=== PATIENT | female | born 1960 | race Caucasian/White ===

== ENCOUNTER → 2024-08-21 | Outpatient (CLI) | payer MEDICARE, SELFPAY ==
[2024-08-21 12:06] LABS: Basophils # (Auto) 0.1 Thou/mm3 (0.0-0.2); Basophils % (Auto) 1 % (0-2.5); Eosinophils # (Auto) 0.2 Thou/mm3 (0.0-0.5); Eosinophils % (Auto) 5 % (0-10); Hematocrit 40.8 % (36.0-46.0); Hemoglobin 13.1 g/dL (12.0-16.0); Immature Granulocytes % (Auto) 0 % (0-0); Immature Granulocytes Auto 0.01 Thou/mm3 (0.00-0.00); Lymphocytes # (Auto) 0.9 Thou/mm3 (1.0-4.8); Lymphocytes % (Auto) 25 % (10-50); Mean Corpuscular HGB Conc 32.1 g/dl (31.0-37.0); Mean Corpuscular Hemoglobin 27.5 pg (25.0-35.0); Mean Corpuscular Volume 86 fL (80-100); Monocytes # (Auto) 0.2 Thou/mm3 (0.0-0.8); Monocytes % (Auto) 6 % (0-12); Neutrophils # (Auto) 2.3 Thou/mm3 (1.8-7.7); Neutrophils % (Auto) 63 % (37-80); Nucleated Red Blood Cell % 0 /100 WBC (0); Platelet Count 86 Thou/mm3 (140-440); RDW Standard Deviation 46.6 fL (36.4-46.3); Red Blood Count 4.77 Miln/mm3 (4.00-5.20); White Blood Count 3.6 Thou/mm3 (3.6-11.0)
[2024-08-21 12:15] LABS: Glucose Estimated Average 174 mg/dL (80-131); Hemoglobin A1C 7.7 % Hgb (4.8-6.0)
[2024-08-21 12:27] LABS: Total Iron Binding Capacity 424 mcg/dL (250-425)
[2024-08-21 12:29] LABS: Alanine Aminotransferase 18 U/L (10-49); Albumin, Serum 4.2 gm/dL (3.4-4.8); Albumin/Globulin Ratio 1.4 (1.2-2.2); Alkaline Phosphatase 182 U/L (46-116); Anion Gap 6 (7-16); Aspartate Amino Transferase 28 U/L (0-34); BUN/Creatinine Ratio 18 Ratio (12-20); Bilirubin,Total 0.6 mg/dL (0.3-1.2); Blood Urea Nitrogen 14 mg/dL (9-23); Calcium 9.6 mg/dL (8.3-10.6); Calcium (Corrected) 9.6 mg/dL (8.5-10.1); Carbon Dioxide 28.9 mMol/L (20.0-31.0); Chloride 107 mMol/L (98-107); Creatinine (Component) 0.8 mg/dL (0.6-1.3); Free T4 (Free Thyroxine) 1.01 ng/dL (0.89-1.76); Globulin 3.1 gm/dL (2.3-3.5); Glucose 159 mg/dL (74-106); Osmolality,Calculated 286 (275-295); Potassium 3.6 mMol/L (3.4-5.1); Sodium 142 mMol/L (136-145); Total Protein 7.3 gm/dL (5.7-8.2); eGFR > 60 See Note
[2024-08-21 12:30] LABS: Vitamin B12 1120 pg/mL (211-911)
[2024-08-21 12:37] LABS: Ferritin 11 ng/mL (7.3-270.7); Iron 31 mcg/dL (50-170)
[2024-08-21 13:46] LABS: Creatinine MALB Rnd Ur 95 mg/dL (30-125); Microalbumin Creat Ratio 40 mg/gCrea (<30); Microalbumin, Random Urine 38 mg/L (0-300)
[2024-08-28 06:45] LABS: Gamma Glutamyl Transpeptidase* 309 U/L (3-65); T3,Total* 96 ng/dL (76-181)
[2024-09-01 06:52] LABS: Vitamin B1 (Thiamine)* 7 nmol/L (8-30)
== END | disposition home or self-care (01) ==
PROVIDERS: PCP Nurse Practitioner; Referring Provider Nurse Practitioner; Visit Provider Nurse Practitioner
DX: E11.65 Type 2 diabetes mellitus with hyperglycemia (principal); I10 Essential (primary) hypertension; E03.9 Hypothyroidism, unspecified; F10.20 Alcohol dependence, uncomplicated; K70.30 Alcoholic cirrhosis of liver without ascites; K76.89 Other specified diseases of liver
CPT/HCPCS: 36415; 80053; 82043; 82105; 82570; 82607; 82728; 82746; 82977; 83036; 83540; 83550; 84425; 84439; 84443; 84480; 85025

== ENCOUNTER → 2024-09-30 | Outpatient (CLI) | payer MEDICARE, SELFPAY ==
[2024-09-30 15:53] LABS: Collection Type, Urine Clean Catch
[2024-09-30 16:31] LABS: Basophils # (Auto) 0.1 Thou/mm3 (0.0-0.2); Basophils % (Auto) 1 % (0-2.5); Eosinophils # (Auto) 0.2 Thou/mm3 (0.0-0.5); Eosinophils % (Auto) 3 % (0-10); Hemoglobin 11.4 g/dL (12.0-16.0); Immature Granulocytes % (Auto) 0 % (0-0); Immature Granulocytes Auto 0.01 Thou/mm3 (0.00-0.00); Lymphocytes # (Auto) 1.1 Thou/mm3 (1.0-4.8); Lymphocytes % (Auto) 23 % (10-50); Mean Corpuscular HGB Conc 31.7 g/dl (31.0-37.0); Mean Corpuscular Volume 82 fL (80-100); Monocytes # (Auto) 0.3 Thou/mm3 (0.0-0.8); Monocytes % (Auto) 7 % (0-12); Neutrophils % (Auto) 65 % (37-80); Nucleated Red Blood Cell % 0 /100 WBC (0); Platelet Count 92 Thou/mm3 (140-440); RDW Standard Deviation 44.9 fL (36.4-46.3); Red Blood Count 4.38 Miln/mm3 (4.00-5.20); White Blood Count 4.6 Thou/mm3 (3.6-11.0)
[2024-09-30 16:41] LABS: Alanine Aminotransferase 18 U/L (10-49); Albumin, Serum 3.9 gm/dL (3.4-4.8); Albumin/Globulin Ratio 1.3 (1.2-2.2); Alkaline Phosphatase 156 U/L (46-116); Amylase 125 U/L (30-118); Anion Gap 6 (7-16); Aspartate Amino Transferase 23 U/L (0-34); BUN/Creatinine Ratio 21 Ratio (12-20); Bilirubin,Total 0.6 mg/dL (0.3-1.2); Blood Urea Nitrogen 17 mg/dL (9-23); Calcium 9.4 mg/dL (8.3-10.6); Calcium (Corrected) 9.5 mg/dL (8.5-10.1); Carbon Dioxide 27.6 mMol/L (20.0-31.0); Chloride 108 mMol/L (98-107); Creatinine (Component) 0.8 mg/dL (0.6-1.3); Globulin 3.1 gm/dL (2.3-3.5); Glucose 125 mg/dL (74-106); Lipase 173 U/L (12-53); Osmolality,Calculated 285 (275-295); Potassium 3.5 mMol/L (3.4-5.1); Sodium 142 mMol/L (136-145); eGFR > 60 See Note
[2024-09-30 16:42] LABS: Bilirubin,Urine Negative (Negative); Blood,Urine Negative (Negative); Clarity,Urine Clear (Clear/Hazy); Color,Urine Lt-Yellow (Lt Yel-Yel); Glucose, Urine 4+ (Negative); Ketones,Urine Negative (Negative); Leukocyte Esterase,Urine Negative (Negative); Nitrite,Urine Negative (Negative); Protein,Urine Negative (Neg - Trace); RBC,Urine 1 /hpf (0-3); Specific Gravity,Urine 1.032 (1.001-1.035); Squamous Epithelial Cell,Urine 1 /hpf (0-5); Urobilinogen,Urine Negative mg/dL (0.0-1.0); WBC,Urine < 1 /hpf (0-5)
== END | disposition home or self-care (01) ==
LOC: COPL 15:04
PROVIDERS: PCP Nurse Practitioner; Referring Provider Nurse Practitioner; Visit Provider Nurse Practitioner
DX: K86.1 Other chronic pancreatitis (principal); R10.30 Lower abdominal pain, unspecified
CPT/HCPCS: 36415; 80053; 81001; 82150; 83690; 85025; 87086

== ENCOUNTER → 2024-11-06 | Outpatient (CLI) | payer MEDICARE, SELFPAY ==
[2024-11-06 14:26] LABS: Anion Gap 4 (7-16); BUN/Creatinine Ratio 17 Ratio (12-20); Blood Urea Nitrogen 15 mg/dL (9-23); Calcium 9.2 mg/dL (8.3-10.6); Carbon Dioxide 28.9 mMol/L (20.0-31.0); Chloride 111 mMol/L (98-107); Creatinine (Component) 0.9 mg/dL (0.6-1.3); Glucose 156 mg/dL (74-106); Osmolality,Calculated 290 (275-295); Potassium 3.8 mMol/L (3.4-5.1); Sodium 144 mMol/L (136-145); eGFR > 60 See Note
== END | disposition home or self-care (01) ==
LOC: COPL 12:48
PROVIDERS: PCP Nurse Practitioner; Referring Provider Nurse Practitioner; Visit Provider Nurse Practitioner
DX: I10 Essential (primary) hypertension (principal)
CPT/HCPCS: 36415; 80048

== ENCOUNTER → 2024-11-09 | Outpatient (CLI) | payer MEDICARE, SELFPAY ==
--- NOTE | 2024-11-09 13:00 | XR_ITS ---
Examination: CT abdomen with intravenous contrast CT pelvis with intravenous contrast 2-D coronal reconstructions 2-D sagittal reconstructions Date and time of exam:November 01, 2024 1402 hours Comparison August 12, 2023 INDICATIONS: Abdominal pain constipation beginning 2 months ago, history pancreatitis. CTDI: vol (mGy) 7.59 DLP: (mGycm) 116 Technique: Multiple axial sections of the abdomen and pelvis have been obtained. 64 slice high-resolution scanner used. 3 mm axial sections have been obtained, post intravenous injection 60 cc [id number] 2-D sagittal, coronal reconstructions obtained. Low dose protocols were performed. One or more of the following dose reduction techniques were used; automated exposure control, adjustment of the mA and/or KV according to patient size, use of iterative reconstruction technique. Findings: Cirrhosis, liver nodular in contour Prominent splenomegaly Moderate ascites Distended gallbladder Cystic pancreatic mass in the body the pancreas, 36 mm No hydronephrosis Abdominal aortic calcification no aneurysmal dilatation No bowel obstruction Colonic diverticulosis Atrophic uterus Moderate stool in the rectum Moderate osteopenia IMPRESSION: Cirrhosis Prominent splenomegaly Moderate ascites Recommend hepatobiliary sonography follow-up to assess distended gallbladder Recommend MRCP follow-up to assess cystic mass in the body the pancreas 36 mm
== END | disposition home or self-care (01) ==
LOC: CCTX 12:34
PROVIDERS: PCP Nurse Practitioner; Referring Provider Nurse Practitioner; Visit Provider Nurse Practitioner
DX: R16.1 Splenomegaly, not elsewhere classified (principal); K70.31 Alcoholic cirrhosis of liver with ascites; K86.2 Cyst of pancreas
CPT/HCPCS: 74177; A4649; Q9967

== ENCOUNTER 2025-01-20 12:12 | Inpatient (IN) | payer MEDICARE, SELFPAY ==
[2025-01-20 12:31] VITALS: BP 110/49; PULSE 62; RESP 16; TEMP 36.9; O2SAT 95; BMI 27.4
--- NOTE | 2025-01-20 12:36 | PD.EDABDPN ---
ED Abdominal Pain RME/HPI General Chief Complaint: Abdominal Pain Stated complaint: Ascites, abdominal pain Time seen by provider: 01/20/25 12:22 Arrival date/time: 01/20/25 12:12 This is a case of 64-year-old female with past medical history of PMH HTN, DM, COPD on no home O2, asthma, hypothryoid cirrhosis came in in the emergency room due to abdominal pain and abdominal distention for 6 months worse 1 month patient is still waiting to see a GI specialist on Saturday worsening of the symptoms this patient daughter decided to bring patient here in the emergency room Limitations: no limitations Related Data Home Medications ?Medication ?Instructions ?Recorded ?Confirmed pregabalin 150 mg capsule (Lyrica) 150 mg PO BID #0 caps 04/13/16 08/24/23 albuterol sulfate 90 mcg/actuation 2 puff inhalation Q4H PRN 04/14/19 08/24/23 aerosol inhaler (Ventolin HFA) Shortness Of Breath latanoprost 0.005 % eye drops 1 drp ophthalmic (eye) QPM 04/14/19 08/24/23 primidone 250 mg tablet 250 mg PO QDAY 04/14/19 08/24/23 tramadol 50 mg tablet 50 mg PO BID 04/14/19 08/24/23 clonidine HCl 0.1 mg tablet 1 tab PO BID 01/18/22 08/24/23 meloxicam 15 mg tablet 1 tab PO QDAY 01/18/22 08/24/23 metformin 1,000 mg tablet 1,000 mg PO BID 01/18/22 05/09/23 metoprolol succinate 50 mg 1.5 tab PO QDAY 01/18/22 08/24/23 tablet,extended release 24 hr escitalopram oxalate 20 mg tablet 20 mg PO QDAY 12/21/22 08/24/23 (Lexapro) loratadine 10 mg tablet 10 mg PO QDAY 12/21/22 08/24/23 levothyroxine 112 mcg capsule 112 mcg PO QDAY 05/09/23 08/24/23 liothyronine 5 mcg tablet 20 mcg PO QDAY 05/09/23 08/24/23 zolpidem 5 mg tablet 5 mg PO QHSPRN 05/09/23 05/09/23 cyanocobalamin (vitamin B-12) 1 mcg PO DAILY 08/24/23 08/24/23 1,000 mcg tablet (Vitamin B-12) empagliflozin 10 mg tablet 1 mg PO DAILY 08/24/23 08/24/23 (Jardiance) fluticasone propionate 110 1 inh inhalation BID 08/24/23 08/24/23 mcg/actuation HFA aerosol inhaler magnesium oxide 1 mg PO DAILY 08/24/23 08/24/23 metoclopramide HCl 10 mg tablet 1 mg PO TID 08/24/23 08/24/23 ondansetron HCl 4 mg tablet 1 mg PO TID 08/24/23 08/24/23 primidone 50 mg tablet 1 mg PO DAILY 08/24/23 08/24/23 semaglutide 1 mg/dose (4 mg/3 mL) 1 mg subcut QWEEK 08/24/23 08/24/23 subcutaneous pen injector (Ozempic) tiotropium 2.5 mcg-olodaterol 2.5 2 puff inhalation DAILY 08/24/23 08/24/23 mcg/actuation mist for inhalation (Stiolto Respimat) Previous Rx's ?Medication ?Instructions ?Recorded ibuprofen 600 mg tablet 600 mg PO Q6H PRN pain #60 tabs 08/26/23 Allergies Allergy/AdvReac Type Severity Reaction Status Date / Time No Known Allergies Allergy Verified 01/20/25 12:17 Past Medical History Past Medical History NEUROLOGIC: Negative Seizures CARDIAC: Positive Heart Murmur, Hypercholesterolemia and Hypertension; Negative Cardiac Disorders or Congestive Heart Failure RESPIRATORY: Positive Chronic Obstructive Pulmonary Disease (COPD), Asthma and Pneumonia GASTROINTESTINAL: Positive Gastrointestinal Disorders, Diverticulitis and Hemorrhoids GENITOURINARY: Negative Renal Disease REPRODUCTIVE: Positive Previous Pregnancies MUSCULOSKELETAL: Positive Arthritis, Carpal Tunnel Syndrome and Fibromyalgia ENT: Positive Cataracts ENDOCRINE: Positive Diabetes Mellitus Type 2 and Hypothyroidism; Negative Diabetes Mellitus Type 1 HEMATOLOGIC: Positive Anemia; Negative Sickle Cell Disease PSYCHO/SOCIAL: Positive Anxiety OTHER HISTORY: Positive Hospitalization and Chicken Pox; Negative Blood Transfusions or Anesthesia Reactions Surgical History SURGICAL: Positive Eye Surgery, Adenoidectomy, Joint Replacement and Tubal Ligation Social History SMOKING STATUS: Current every day smoker SECOND HAND EXPOSURE: Yes SUBSTANCE USE: marijuana 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 Exam General Limitations: Present no limitations General appearance: Present alert, in no apparent distress and other (Awake alert oriented x 4 no focal deficit GCS 15/15 steady gait well-hydrated well-nourished not toxic looking not in distress) Head Head exam: Present atraumatic, normocephalic and normal inspection Eye Eye exam: Present normal appearance, PERRL and EOMI ENT ENT exam: Present normal exam, normal oropharynx and mucous membranes moist Neck Neck exam: Present normal inspection, full ROM and trachea midline; Absent tenderness, meningismus or lymphadenopathy Chest Chest inspection: Present normal inspection and symmetric chest wall rise Respiratory Respiratory exam: Present normal lung sounds bilaterally; Absent respiratory distress, wheezes, stridor, accessory muscle use or prolonged expiratory phase Cardiovascular Cardiovascular exam: Present regular rate, normal rhythm and normal heart sounds; Absent bradycardia, tachycardia, irregular rhythm, systolic murmur or diastolic murmur Abdominal Exam Abdominal exam: Present soft, distention, tenderness (Generalized tenderness no CVA tenderness), normal bowel sounds and ascites; Absent guarding, rebound, rigidity, diminished bowel sounds, hyperactive bowel sounds, hypoactive bowel sounds, psoas sign, obturator sign, Bhatti's sign, Rovsing's sign or tenderness at McBurney's Point Extremities Exam Extremities exam: Present normal inspection and full ROM Back Exam Back exam: Present normal inspection and full ROM Neurological Exam Neurological exam: Present alert, oriented X3, CN II-XII intact, normal gait and reflexes normal; Absent motor sensory deficit Psychiatric Psychiatric exam: Present normal affect and normal mood Skin Skin exam: Present warm, dry, intact and normal color Course Quality Measures none Orders Category Date Time Status COVID-19 Screening Questionnaire NOW Care 01/20/25 15:22 Active Decision to Admit X1 Care 01/20/25 15:21 Active EKG (ED ONLY) *Do not use* NOW Care 01/20/25 12:[address] abdomen pelvis wo con Stat Exams 01/20/25 12:44 Completed EKG (ED Only) Stat Exams 01/20/25 12:44 Draft XR chest 1V portable Stat Exams 01/20/25 12:44 Completed Amylase Stat Lab 01/20/25 13:05 Completed BNP [B-Type Natriuretic Peptide] Stat Lab 01/20/25 13:05 Completed CBC Stat Lab 01/20/25 13:05 Completed Comprehensive Metabolic Panel Stat Lab 01/20/25 13:05 Completed HCG Qualitative,Urine Stat Lab 01/20/25 13:42 Completed Lipase Stat Lab 01/20/25 13:05 Completed Reticulocyte Count Stat Lab 01/20/25 13:05 Completed TSH [Thyroid Stimulating Hormone] Stat Lab 01/20/25 13:05 Completed Troponin I Stat Lab 01/20/25 13:05 Completed Type and Screen Stat Lab 01/20/25 13:05 Completed Urinalysis Stat Lab 01/20/25 13:42 Completed Vital Signs Vital signs: Vital Signs Temperature 98.5 F 01/20/25 12:31 Pulse Rate 62 01/20/25 12:31 Respiratory Rate 16 01/20/25 12:31 Blood Pressure 110/49 L 01/20/25 12:31 Pulse Oximetry (%) 95 01/20/25 12:31 Oxygen Delivery Method Room Air 01/20/25 12:31 Patient is afebrile not tachycardic not tachypneic BP stable not hypoxic oxygen saturation in room air normal Abdominal Pain MDM MDM Narrative MDM Narrative:: This is a case of 64-year-old female with past medical history of PMH HTN, DM, COPD on no home O2, asthma, hypothryoid cirrhosis came in in the emergency room due to abdominal pain and abdominal distention for 6 months worse 1 month patient is still waiting to see a GI specialist on Saturday worsening of the symptoms this patient daughter decided to bring patient here in the emergency room patient is awake alert oriented not in distress nontoxic looking well-hydrated well-nourished lungs sound is clear no crackles no rales no retraction no stridor heart normal rate regular rhythm no murmur patient abdominal exam noted to have generalized tenderness with marked abdominal distention normal active bowel sounds patient blood test showed no leukocytosis anemia hemoglobin is 9.6 and hematocrit is 29.4 reticulocyte level is high 17.8 alk phos is 17.2 elevated SGPT SGOT and bilirubin is normal patient kidney function is normal no electrolyte imbalance patient lipase is elevated 74 BNP is elevated 310 possible due to ascites anasarca chest x-ray showed minimal vascular congestion EKG showed sinus bradycardia heart rate 57 CT scan showed cirrhosis significant ascites anasarca based on my physical examination blood tests and results of the CT scan decision to admit the patient was I spoke to Dr. Nagy regarding patient discussed patient condition history and physical examination and agreed that the patient will be admitted impression will be decompensated liver disease with intractable ascites plan is to perform ultrasound-guided paracentesis I discussed with the patient the treatment plan admission and agreed I spoke to the hospitalist dr avila discussed patient condition history and physical examination relayed result of blood test and CT scan and accept patient admission Patient data External records reviewed:: [facility] previous records Clinical information provided by:: patient and family Social determinants that could affect healthcare access:: none Patient has the following chronic illnesses:: None How is presenting disease/condition affected by chronic disease/condition?: no chronic disease Evaluation data The following diagnostics were reviewed and interpreted by me:: lab results, radiology exam(s) and EKG tracing(s) Lab and/or radiology exams considered but not ordered:: Reviewed Interpretation Summary: Reviewed Medications / Prescriptions Medications or Prescriptions considered but not ordered:: Given Medication administrations:: Given Consultations Consultation(s) initiated? (list below): Yes Consultation #1 (Physician, Specialty, Details): Dr. Nagy discussed patient condition history and physical examination relayed the blood test and CT scan agreed the patient need to be admitted for decompensated liver cirrhosis and intractable ascites plan is to perform ultrasound-guided paracentesis Consultation #2 (Physician, Specialty, Details): dr avila accept patient admission Diagnosis Differential diagnosis abdominal pain: abdominal pain, acute appendicitis, calculus of kidney, diverticulitis, gastroenteritis and other (Ascites anasarca) Most likely diagnosis given after review of the tests above:: Decompensated liver cirrhosis with intractable ascites Admission Indicated Admission indicated?: indicated Explain why admission is indicated or not indicated:: Decompensated liver cirrhosis with intractable ascites Admission Request Was there a request for admission?: Yes Admission Attestation Admission request attestation: Discussed case with [] from Hospitalist service regarding admission. Discussed patients ED course, exam findings, labs, and radiology results. The Hospitalist [agrees,declines] to accept the patient for admission. Disposition Plan Disposition Plan: Discharge Discharge Attestation Discharge Attestation: The patient and all family members were given an opportunity to ask questions and understood the discharge instructions. Discharge instructions specifically effects, indications for sooner follow up or return to the emergency department, and the expected course of current diagnosis. Patient condition: Stable Discharge Plan Plan Patient Disposition: Admit Acute Care w/in Hospital Patient condition on transfer: Stable Prescriptions/Referrals Prescriptions/Med Rec: No Action escitalopram oxalate [Lexapro] 20 mg tablet 20 mg PO QDAY loratadine 10 mg tablet 10 mg PO QDAY pregabalin [Lyrica] 150 MG capsule 150 mg PO BID Qty: 0 latanoprost 0.005 % Drops 1 drp OPHTHALMIC (EYE) QPM Rx Instructions: each eye tramadol 50 mg Tablet 50 mg PO BID primidone 250 mg Tablet 250 mg PO QDAY Rx Instructions: takes 1/2 tab at bedtime albuterol sulfate [Ventolin HFA] 90 mcg/actuation Hfa Aerosol Inhaler 2 puff INHALATION Q4H PRN (Reason: Shortness Of Breath) clonidine HCl 0.1 mg tablet 1 tab PO BID Patient Comments: TAKE ONE TABLET BY MOUTH TWICE DAILY IF BLOOD PRESSURE IS 150/80 metoprolol succinate 50 mg tablet extended release 24 hr 1.5 tab PO QDAY Patient Comments: TAKE 1 AND 1/2 TABLETS BY MOUTH EVERY DAY WITH FOOD meloxicam 15 mg tablet 1 tab PO QDAY Patient Comments: TAKE ONE TABLET BY MOUTH EVERY DAY ARTHRITIS metformin 1,000 mg tablet 1,000 mg PO BID liothyronine 5 mcg Tablet 20 mcg PO QDAY zolpidem 5 mg Tablet 5 mg PO QHSPRN levothyroxine 112 mcg Capsule 112 mcg PO QDAY primidone 50 mg Tablet 1 mg PO DAILY ondansetron HCl 4 mg Tablet 1 mg PO TID cyanocobalamin (vitamin B-12) [Vitamin B-12] 1,000 mcg Tablet 1 mcg PO DAILY fluticasone propionate 110 mcg/actuation Hfa Aerosol Inhaler 1 inh INHALATION BID metoclopramide HCl 10 mg Tablet 1 mg PO TID Jardiance 10 mg Tablet 1 mg PO DAILY Stiolto Respimat 2.5-2.5 mcg/actuation Mist 2 puff INHALATION DAILY magnesium oxide 400 mg magnesium Tablet 1 mg PO DAILY Rx Instructions: with food Ozempic 1 mg/dose (4 mg/3 mL) Pen Injector 1 mg subcut QWEEK Rx Instructions: 1 mg subcutaneously ibuprofen 600 mg tablet 600 mg PO Q6H PRN (Reason: pain) Qty: 60 0RF Referrals: Hima Musa([facility])MD [Primary Care Provider] - In 1 week Problem List Clinical Impression: Decompensation of cirrhosis of liver, Abdominal distension, Ascites, Anasarca, Abdominal pain Patient/Caregiver Discharge Instructions Education Materials: Abdominal Pain, Treating Cirrhosis, ED Ascites Print Language: Ivorian Stand Alone Forms: [facility] Info., Patient Portal Info Letter PA/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
--- NOTE | 2025-01-20 12:44 | XR_ITS ---
Examination: CT abdomen and pelvis without contrast. Coronal 3-D reconstructions. Sagittal 2-D reconstructions. C4 is opaque exam date and time: January 20, 2025 1326 hours Comparison November 09, 2024 INDICATIONS: Cirrhosis, generalized abdominal pain today CTDI: vol (mGy): 11.7 DLP: (mGycm): 711 Technique: Axial images of the abdomen have been obtained, 3 mm slice thickness Intravenous contrast material has not been administered. Low dose protocols were performed. One or more of the following dose reduction techniques were used; automated exposure control, adjustment of the mA and/or KV according to patient size, use of iterative reconstruction technique. Findings: Cirrhosis, liver nodular in contour Significant ascites Prominent splenomegaly Esophageal varices Perigastric varices Portosystemic collateral vessels medial to the spleen No definite gallstones No hydronephrosis Heavy abdominal aortic and renal arterial calcification No bowel obstruction Colonic diverticulosis Atrophic uterus No bladder mass Severe osteopenia IMPRESSION: Cirrhosis Significant ascites Prominent splenomegaly Anasarca Esophageal and perigastric varices. No bowel obstruction
--- NOTE | 2025-01-20 12:44 | EKG_ITS ---
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
--- NOTE | 2025-01-20 12:44 | XR_ITS ---
Examination: PA chest single view TECHNIQUE: Upright PA chest single view Date and time: January 20, 2025 1253 hours Comparison December 02, 2023 INDICATIONS: Shortness of breath today. FINDINGS: Normal heart size Minimal vascular congestion. No lobar pneumonia or pulmonary edema IMPRESSION: Minimal vascular congestion
[2025-01-20 13:16] LABS: Basophils # (Auto) 0.1 Thou/mm3 (0.0-0.2); Basophils % (Auto) 2 % (0-2.5); Eosinophils # (Auto) 0.2 Thou/mm3 (0.0-0.5); Eosinophils % (Auto) 4 % (0-10); Hematocrit 29.4 % (36.0-46.0); Hemoglobin 9.6 g/dL (12.0-16.0); Immature Granulocytes Auto 0.01 Thou/mm3 (0.00-0.00); Immature Reticulocyte Fraction 17.8 % (3.0-15.9); Lymphocytes # (Auto) 1.0 Thou/mm3 (1.0-4.8); Lymphocytes % (Auto) 25 % (10-50); Mean Corpuscular HGB Conc 32.7 g/dl (31.0-37.0); Mean Corpuscular Hemoglobin 25.2 pg (25.0-35.0); Mean Corpuscular Volume 77 fL (80-100); Monocytes # (Auto) 0.4 Thou/mm3 (0.0-0.8); Monocytes % (Auto) 9 % (0-12); Neutrophils # (Auto) 2.4 Thou/mm3 (1.8-7.7); Neutrophils % (Auto) 61 % (37-80); Nucleated Red Blood Cell # 0.00 Thou/mm3 (0.00-0.00); Nucleated Red Blood Cell % 0 /100 WBC (0); Platelet Count 140 Thou/mm3 (140-440); RDW Standard Deviation 42.6 fL (36.4-46.3); Red Blood Count 3.81 Miln/mm3 (4.00-5.20); Reticulocyte % (Auto) 1.1 % (0.5-1.5); Reticulocyte Absolute Auto 43.1 Biln/L (25.0-75.0); Reticulocyte Hgb Content 23.0 pg (28.0-35.0); White Blood Count 3.9 Thou/mm3 (3.6-11.0)
[2025-01-20 13:39] LABS: B-Type Natriuretic Peptide 310 pg/mL (0-100)
[2025-01-20 13:44] LABS: Alanine Aminotransferase 11 U/L (10-49); Albumin, Serum 3.8 gm/dL (3.4-4.8); Albumin/Globulin Ratio 1.2 (1.2-2.2); Alkaline Phosphatase 172 U/L (46-116); Amylase 64 U/L (30-118); Anion Gap 8 (7-16); Aspartate Amino Transferase 23 U/L (0-34); BUN/Creatinine Ratio 16 Ratio (12-20); Bilirubin,Total 0.4 mg/dL (0.3-1.2); Blood Urea Nitrogen 19 mg/dL (9-23); Calcium 9.3 mg/dL (8.3-10.6); Calcium (Corrected) 9.5 mg/dL (8.5-10.1); Carbon Dioxide 28.4 mMol/L (20.0-31.0); Chloride 104 mMol/L (98-107); Creatinine (Component) 1.2 mg/dL (0.6-1.3); Estimated Creatinine Clearance 45.6 mL/min (>60); Globulin 3.1 gm/dL (2.3-3.5); Glucose 108 mg/dL (74-106); Lipase 74 U/L (12-53); Osmolality,Calculated 282 (275-295); Potassium 3.8 mMol/L (3.4-5.1); Sodium 140 mMol/L (136-145); Thyroid Stimulating Hormone 2.33 uIU/mL (0.55-4.78); Total Protein 6.9 gm/dL (5.7-8.2); Troponin I < 0.002 ng/mL (0.0-0.045); eGFR 50 See Note
[2025-01-20 13:47] LABS: Collection Type, Urine Clean Catch
[2025-01-20 14:05] LABS: HCG Qualitative,Urine Negative
[2025-01-20 14:46] LABS: Bacteria,Urine Rare; Bilirubin,Urine Negative (Negative); Blood,Urine 1+ (Negative); Clarity,Urine Clear (Clear/Hazy); Color,Urine Yellow (Lt Yel-Yel); Glucose, Urine 4+ (Negative); Ketones,Urine Negative (Negative); Leukocyte Esterase,Urine Negative (Negative); Nitrite,Urine Negative (Negative); PH,Urine 7.0 (5.0-7.0); Protein,Urine Negative (Neg - Trace); RBC,Urine 1 /hpf (0-3); Specific Gravity,Urine 1.027 (1.001-1.035); Squamous Epithelial Cell,Urine 2 /hpf (0-5); Urobilinogen,Urine Negative mg/dL (0.0-1.0); WBC,Urine 1 /hpf (0-5)
[2025-01-20 15:14] VITALS: BP 115/53; PULSE 67; RESP 20; TEMP 36.8; O2SAT 95
--- NOTE | 2025-01-20 16:52 | PD.RESHP ---
Documentation for date of: 01/20/25 HPI History of Present Illness History of present illness: History of Present Illness: Pleasant 64 year-old female with PMHx of alcoholic liver cirrhosis, COPD on home O2, hypothyroidism, asthma, HTN, T2DM and anxiety who presented to the ED with worsening abdominal pain and distention. Reports worsening LE swelling in EVA LE, worsening over the last few months. She is also reports significant worsening abdominal distention over the last month. Associated with generalized abdominal pain and discomfort, in addition to difficulty laying flat secondary to abdominal distention. Also reports being constipated over the last few weeks. History of liver cirrhosis, diagnosed on recent visit from 08/2023. Previously she had a GI doctor in [place], but currently not following, states she is unsatisfied with this management. She follows up with an PLATE FITTER at [facility] and has been awaiting a referral for a GI doctor in [facility]. She is scheduled for paracentesis next . However, she was sent to the ED for paracentesis but there were no available fuel cell battery technician in the ED today to perform paracentesis. Denies fever, chills, headaches, fall or trauma, chest pain, exertional dyspnea, nausea or vomiting, appetite changes, abnormal weight changes, diarrhea, upper or lower GI bleed including dark stool (although reports chronic hemorrhoidal bleeding). She has a history of polyposis, follow-up with GI in [place] regularly. She is on a 5-year colonoscopy schedule, last was done 5 years ago and showed polyps. EGD was also done last year which was normal. Past Medical History: Alcoholic liver cirrhosis, COPD on home oxygen, hypothyroidism, asthma, HTN, T2DM, anxiety. Past Surgical History: Bilateral carpal tunnel repair, tubal ligation. Medications: (Med rec pending) ALBUTEROL inhaler, CLONIDINE BID, FLONASE, JARDIANCE, LEVOTHYROXINE 112 mcg, LORATADINE 10 mg, METOPROLOL succinate 75 mg QD, SPIRONOLACTONE 50 mg q. day. Allergies: No known allergies. Family History: No relevant family history. Social History: Born in [place], moved to [place] at the age of 12. Works at [employer]. Smoked 1 pack a day since the age of 12 (roughly 50 pack year), currently working on quitting, smoking about 1 to 3 cigarettes daily. Quit drinking alcohol about 3 months ago, reports extensive alcohol use history. Denies other drug use. ED Course: Admission afebrile, BP 110/41, HR 62, satting well on room air. Hgb 9.6, baseline 11.4. Platelets 140. Coag panel WNL. CR 1.2 (baseline 0.9), BUN 19, normal LFTs, ALP 172, troponin normal, BNP 310, lipase 74. UA negative for UTI but showed 4+ GLUCOSE. Abdominal CT showed cirrhosis, significant ascites, prominent splenomegaly, anasarca, esophageal and perigastric varices, no bowel obstruction. Ultrasound gallbladder showed distended gallbladder, negative for cholelithiasis, mildly thickened gallbladder wall likely from ascites. CXR showed minimal vascular congestion. EKG shows sinus bradycardia, HR 57, no acute ST changes. Reason for admission: Will admit under observation for therapeutic/diagnostic paracentesis in the morning. Will do ALBUMIN infusion prior to paracentesis, expect large amount of fluid to be removed. Will initiate diuresis for extremity edema. Adding CEFTRIAXONE for SBP prophylaxis. GI on board for possible intervention. Review of Systems Review of Systems Systems Reviewed: All systems reviewed, normal except as documented Exam Vital Signs Temp Pulse Resp BP Pulse Ox O2 Del Method 98.3 F 67 20 115/53 L 95 Room Air 01/20/25 15:14 01/20/25 15:14 01/20/25 15:14 01/20/25 15:14 01/20/25 15:14 01/20/25 15:14 Narrative Exam GENERAL Normal appearing adult female, NAD. HEENT NCAT.?GEOVANNI. Oral mucosa is moist. Patent Nares NECK Supple, nontender, no JVD. CHEST RRR, no m/g/r CTAB, no w/r/r, slightly tachypnic, symmetrical expansion. ABDOMEN Soft, diffusely distended, ascites, positive fluid shift, mildly tender throughout. No guarding/rebound tenderness/masses. Bowel sounds presents EXTREMITIES No edema/cyanosis.? 2+ eva LE edema extending above the knee. SKIN Warm and dry, no jaundice/rashes. Slightly pale. NEUROMUSCULAR Moves all 4 extremities well, with full ROM and good CSM. No focal neurologic deficits. PSYCHIATRY Normal mood and affect, cooperative, no SI or HI or hallucinations. Results: Labs 01/23/25 05:35 01/23/25 05:35 Labs: Short CBC 01/20/25 Range/Units 13:05 WBC 3.9 (3.6-11.0) Thou/mm3 Hgb 9.6 L (12.0-16.0) g/dL Hct 29.4 L (36.0-46.0) % Plt Count 140 (140-440) Thou/mm3 BMP 01/20/25 13:05 Sodium 140 Potassium 3.8 Chloride 104 Carbon Dioxide 28.4 BUN 19 Creatinine 1.2 Glucose 108 H Calcium 9.3 Cardiac Enzymes 01/20/25 Range/Units 13:05 Troponin I < 0.002 (0.0-0.045) ng/mL Liver Function 01/20/25 Range/Units 13:05 Total Bilirubin 0.4 (0.3-1.2) mg/dL AST 23 (0-34) U/L ALT 11 (10-49) U/L Alkaline Phosphatase 172 H (46-116) U/L Albumin 3.8 (3.4-4.8) gm/dL Urine 01/20/25 Range/Units 13:42 Urine Color Yellow (Lt Yel-Yel) Urine Clarity Clear (Clear/Hazy) Urine pH 7.0 (5.0-7.0) Ur Specific [place] 1.027 (1.001-1.035) Urine Protein Negative (Neg - Trace) Urine Glucose (UA) 4+ A (Negative) Quality Measures Quality Measures none Advance care planning discussed with:: patient Medications Home Medications and Allergies Home Medications ?Medication ?Instructions ?Recorded ?Confirmed ?Type pregabalin 150 mg capsule (Lyrica) 150 mg PO BID #0 caps 04/13/16 01/20/25 History albuterol sulfate 90 mcg/actuation 2 puff inhalation Q4H PRN 04/14/19 01/20/25 History aerosol inhaler (Ventolin HFA) Shortness Of Breath latanoprost 0.005 % eye drops 1 drp ophthalmic (eye) QPM 04/14/19 01/20/25 History primidone 250 mg tablet 250 mg PO QDAY 04/14/19 01/20/25 History tramadol 50 mg tablet 50 mg PO BID 04/14/19 01/20/25 History clonidine HCl 0.1 mg tablet 1 tab PO BID 01/18/22 01/20/25 History Held on 01/20/25. Instructions: Doctor's Order metformin 1,000 mg tablet 1,000 mg PO BID 01/18/22 01/20/25 History Held on 01/20/25. Instructions: awaiting insurance autho for patient to continue to take med metoprolol succinate 50 mg 1.5 tab PO QDAY 01/18/22 01/20/25 History tablet,extended release 24 hr escitalopram oxalate 20 mg tablet 20 mg PO QDAY 12/21/22 01/20/25 History (Lexapro) levothyroxine 112 mcg capsule 112 mcg PO QDAY 05/09/23 01/20/25 History liothyronine 5 mcg tablet 20 mcg PO QDAY 05/09/23 01/20/25 History zolpidem 5 mg tablet 5 mg PO QHSPRN 05/09/23 01/20/25 History empagliflozin 10 mg tablet 1 mg PO DAILY 08/24/23 01/20/25 History (Jardiance) fluticasone propionate 110 1 inh inhalation BID 08/24/23 01/20/25 History mcg/actuation HFA aerosol inhaler metoclopramide HCl 10 mg tablet 1 mg PO TID 08/24/23 01/20/25 History primidone 50 mg tablet 1 mg PO DAILY 08/24/23 01/20/25 History semaglutide 1 mg/dose (4 mg/3 mL) 1 mg subcut QWEEK 08/24/23 01/20/25 History subcutaneous pen injector (Ozempic) Held on 01/20/25. Instructions: Doctor's Order tiotropium 2.5 mcg-olodaterol 2.5 2 puff inhalation DAILY 08/24/23 01/20/25 History mcg/actuation mist for inhalation (Stiolto Respimat) aspirin 81 mg capsule 81 mg PO QDAY 01/20/25 01/20/25 History beclomethasone dipropionate 40 2 inh inhalation BID 01/20/25 01/20/25 History mcg/actuation HFA breath activated aerosol (Qvar RediHaler) insulin lispro 100 unit/mL 1 sliding scale dose subcut PRN 01/20/25 01/20/25 History subcutaneous pen lubiprostone 24 mcg capsule 24 mcg PO PRN PRN constipation 01/20/25 01/20/25 History omeprazole 20 mg capsule,delayed 20 mg PO BID 01/20/25 01/20/25 History release spironolactone 50 mg tablet 50 mg PO BID 01/20/25 01/20/25 History Allergies Allergy/AdvReac Type Severity Reaction Status Date / Time No Known Allergies Allergy Verified 01/20/25 12:17 Visit Medications Acetaminophen (Acetaminophen 325 Mg Tablet) 650 mg PO Q6H PRN PRN Reason: PAIN SCALE 1-3 (mild Stop: 02/19/25 16:46 Acetaminophen (Acetaminophen 325 Mg Tablet) 650 mg PO Q6H PRN PRN Reason: Fever >100.4 Stop: 02/19/25 16:46 Hydrocodone Bitart/Acetaminophen (Hydrocodone/Apap 10/325 Tab) 1 tab PO Q4HR PRN PRN Reason: PAIN SCALE 7-10 (Severe Stop: 01/25/25 16:46 Furosemide (Furosemide Inj 10 Mg/Ml 4ml Vial) 40 mg IVP BIDD REYNA Stop: 02/19/25 17:59 Heparin Sodium (Porcine) (Heparin Sod Inj 5000 Unit/Ml Vial) 5,000 unit SC BID REYNA Stop: 02/03/25 20:59 Albumin Human (Albuminar-25 Ivpb) 12.5 gm in 50 mls @ 50 mls/hr IV X1 ONE Stop: 01/20/25 17:46 Ceftriaxone Sodium/Dextrose (Rocephin/D5w 1gm Iv Premix) 50 mls @ 100 mls/hr IV QDAY REYNA Stop: 01/27/25 16:59 Ondansetron HCl (Ondansetron Inj 2 Mg/Ml Inj 2 Ml) 4 mg IVP Q6H PRN; Protocol PRN Reason: NAUSEA OR VOMITING Stop: 02/19/25 16:46 Oxycodone/Acetaminophen (Oxycodone/Apap 5/325 Tablet) 1 tab PO Q6H PRN PRN Reason: PAIN SCALE 4-6 (Moderate Stop: 01/25/25 16:46 Pantoprazole Sodium (Pantoprazole Inj 40 Mg Vial) 40 mg IVP QDAY REYNA Stop: 02/19/25 16:59 Assessment & Plan Plan 64 year-old female with PMHx of alcoholic liver cirrhosis, COPD on home O2, hypothyroidism, asthma, HTN, T2DM and anxiety who presented to the ED with worsening ascites and abdominal discomfort. Admitted under observation for therapeutic/diagnostic paracentesis. Significant ascites Alcoholic liver cirrhosis Significant alcohol use history, cirrhosis diagnosed in 08/2023. Has been on SPIRONOLACTONE, presenting with 1 month of worsening abdominal ascites. Abdominal CT showed cirrhosis, significant ascites, prominent splenomegaly, anasarca, esophageal and perigastric varices, no bowel obstruction. Ultrasound gallbladder showed distended gallbladder, negative for cholelithiasis, mildly thickened gallbladder wall likely from ascites. Anasarca on exam, with 2+ bilateral extremity edema extending above the knee. MELD score 9 equates to 6% mortality in 3 months. Child-Wilhelm score 7, Class B, indication for transplant evaluation. ? N.p.o. midnight ? Diagnostic/therapeutic paracentesis in a.m., results to be followed up outpatient ? CEFTRIAXONE for SBP prophylaxis ? LASIX 40 BID for lower extremity edema. ? ALBUMIN x 1 to be given after paracentesis, if >5 L fluid removed ? Fluid restriction ? Consider PROPRANOLOL for varices prophylactics if BP allows ? Consider SPIRONOLACTONE/FUROSEMIDE 100/40 mg ? Pending GI recommendations Microcytic anemia Hgb 9.6, baseline 11.4. MCV 77 Likely iron deficiency versus cirrhosis. CT showed esophageal and perigastric varices. Reports chronic, recurrent hemorrhoidal bleed, but denies dark stool or upper GI bleed. She has a history of colonic polyps, on a 5-year colonoscopy schedule, last colonoscopy was 5 years ago and was normal. To her knowledge, EGD last year was normal without evidence of bleed or vascular abnormalities. ? Transfuse if Hgb less than 8 ? Pending GI recommendation for possible EGD ? Pending iron panel, folate, B12 HTN Hypothyroidism Asymptomatic sinus bradycardia Currently normotensive, normocardic. EKG shows sinus bradycardia, likely cirrhosis related on oral dysfunction versus BETA-BLOCKERS. ? Continue home LEVOTHYROXINE 112 mcg AC BR ? Consider resume home METOPROLOL as indicated COPD, asthma Chronic respiratory failure, on home 2 L O2 No signs of asthma or COPD exacerbation ? DuoNebs q.6h. PRN T2DM A1c 7.7 from 08/2024. ? INSULIN sliding scale ? Accu-Cheks Elevated lipase Lipase 74, no nausea or vomiting, no epigastric pain subjectively on exam. No radiographic findings of acute pancreatitis. ? 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 CR 1.2, baseline 0.9. GFR 50. BUN 19. UA negative for UTI. Anticipate improvement with ALBUMIN. ? Renally dose meds, avoid overdiuresis and NEPHROTOXINS ? Daily CMP Health maintenance Diet: Renal diet, n.p.o. midnight 01/21/2025 GI prophylaxis: PROTONIX DVT prophylaxis: HEPARIN subcu, held at midnight 01/21/2025 Antibiotics: CEFTRIAXONE CODE STATUS: Full code Disposition: Admitted under observation for paracentesis Case was discussed with attending physician. Keith Daly DO PGY II This document was transcribed using voice recognition technology. Minor inaccuracies may be present. Attending Provider Attestation/Addendum I have examined the patient, reviewed labs and imaging findings, discussed the case with the resident(s), and reviewed entered orders. I agree with the plan of care as outlined in this note, with these additional summaries/recommendations: After examination of the patient and review of the clinical data, I feel that this patient needs admission to the hospital for further treatment and evaluation. Patient seen at bedside. She reports she recently received a diagnosis of cirrhosis secondary to chronic alcohol use and reports she is no longer drinking. She has yet to establish care with gastroenterology. She is significantly fluid overload with severely distended abdomen indicating severe ascites. Gastroenterology consulted who recommends admission. Therapeutic and diagnostic paracentesis ordered and we will replace with albumin as needed. Appreciate gastroenterology recommendations if EGD is required at this time. Continue home inhalers and antihypertensives as needed. Dr. Digna MD
[2025-01-20 18:19] VITALS: BP 130/61; PULSE 69; RESP 18; TEMP 37.1; O2SAT 95
[2025-01-20 18:37] VITALS: BP 130/61; PULSE 63
[2025-01-20] MEDS: cefTRIAXone/D5w 1gm IV premix 1 GM/50 ML BAG IV (18:37)
[2025-01-20] MEDS: FUROSEMIDE INJ 10 MG/ML 4ML VIAL 40 MG IVP (18:37)
[2025-01-20] MEDS: HEPARIN SOD INJ 5000 UNIT/ML VIAL SC (20:42)
[2025-01-20] MEDS: PREGABALIN 75 MG CAPSULE 150 MG PO (20:43)
[2025-01-20 21:45] VITALS: PULSE 85; RESP 20; O2SAT 95
[2025-01-20 22:18] VITALS: BMI 30.7
[2025-01-20] MEDS: ONDANSETRON INJ 2 MG/ML INJ 2 ML 4 MG IVP (22:46)
[2025-01-20 23:00] LABS: Folate 17.67 ng/mL (>5.38)
--- NOTE | 2025-01-20 23:28 | PD.IMCONS ---
HPI Data of Consult Requesting Physician: Brandon Sawyer MD Primary Care Provider: Hima Musa MD Consult Narrative Reason for consult: Decompensated cirrhotic liver disease History of present illness: 64 years old female who has cirrhotic liver disease due to alcohol presented to the hospital with increasing abdominal girth anasarca I got a call from the nurse practitioner and patient was subsequently admitted Gallbladder ultrasound distended gallbladder negative for cholelithiasis CT scan of the abdomen without contrast showed cirrhotic liver disease esophageal varices gastric varices significant ascites and splenomegaly Patient does have a history of COPD on home oxygen 2 L nasal cannula essential hypertension hypothyroidism and diabetes mellitus type 2 cc:: cc: Brandon Sawyer MD Review of Systems Review of Systems Systems Reviewed: All systems reviewed, normal except as documented Past Medical History Surgical History OTHER SURGICAL HX: As in the history of present illness Meds Home Medications and Allergies Home Medications ?Medication ?Instructions ?Recorded ?Confirmed ?Type pregabalin 150 mg capsule (Lyrica) 150 mg PO BID #0 caps 04/13/16 01/20/25 History albuterol sulfate 90 mcg/actuation 2 puff inhalation Q4H PRN 04/14/19 01/20/25 History aerosol inhaler (Ventolin HFA) Shortness Of Breath latanoprost 0.005 % eye drops 1 drp ophthalmic (eye) QPM 04/14/19 01/20/25 History primidone 250 mg tablet 250 mg PO QDAY 04/14/19 01/20/25 History tramadol 50 mg tablet 50 mg PO BID 04/14/19 01/20/25 History clonidine HCl 0.1 mg tablet 1 tab PO BID 01/18/22 01/20/25 History Held on 01/20/25. Instructions: Doctor's Order metformin 1,000 mg tablet 1,000 mg PO BID 01/18/22 01/20/25 History Held on 01/20/25. Instructions: awaiting insurance autho for patient to continue to take med metoprolol succinate 50 mg 1.5 tab PO QDAY 01/18/22 01/20/25 History tablet,extended release 24 hr escitalopram oxalate 20 mg tablet 20 mg PO QDAY 12/21/22 01/20/25 History (Lexapro) levothyroxine 112 mcg capsule 112 mcg PO QDAY 05/09/23 01/20/25 History liothyronine 5 mcg tablet 20 mcg PO QDAY 05/09/23 01/20/25 History zolpidem 5 mg tablet 5 mg PO QHSPRN 05/09/23 01/20/25 History empagliflozin 10 mg tablet 1 mg PO DAILY 08/24/23 01/20/25 History (Jardiance) fluticasone propionate 110 1 inh inhalation BID 08/24/23 01/20/25 History mcg/actuation HFA aerosol inhaler metoclopramide HCl 10 mg tablet 1 mg PO TID 08/24/23 01/20/25 History primidone 50 mg tablet 1 mg PO DAILY 08/24/23 01/20/25 History semaglutide 1 mg/dose (4 mg/3 mL) 1 mg subcut QWEEK 08/24/23 01/20/25 History subcutaneous pen injector (Ozempic) Held on 01/20/25. Instructions: Doctor's Order tiotropium 2.5 mcg-olodaterol 2.5 2 puff inhalation DAILY 08/24/23 01/20/25 History mcg/actuation mist for inhalation (Stiolto Respimat) aspirin 81 mg capsule 81 mg PO QDAY 01/20/25 01/20/25 History beclomethasone dipropionate 40 2 inh inhalation BID 01/20/25 01/20/25 History mcg/actuation HFA breath activated aerosol (Qvar RediHaler) insulin lispro 100 unit/mL 1 sliding scale dose subcut PRN 01/20/25 01/20/25 History subcutaneous pen lubiprostone 24 mcg capsule 24 mcg PO PRN PRN constipation 01/20/25 01/20/25 History omeprazole 20 mg capsule,delayed 20 mg PO BID 01/20/25 01/20/25 History release spironolactone 50 mg tablet 50 mg PO BID 01/20/25 01/20/25 History Allergies Allergy/AdvReac Type Severity Reaction Status Date / Time No Known Allergies Allergy Verified 01/20/25 12:17 Exam Vital Signs Temp Pulse Resp BP Pulse Ox O2 Del Method O2 Flow Rate 98.7 F 85 20 130/61 95 Room Air 3 01/20/25 18:19 01/20/25 21:45 01/20/25 21:45 01/20/25 18:37 01/20/25 21:45 01/20/25 18:19 01/20/25 21:45 Constitutional Comments: Chronically ill-appearing Routine Respiratory Exam Comments: Normal to auscultation Routine Abdominal Exam Comments: Positive for ascites Results Labs 01/20/25 13:05 01/20/25 13:05 Labs: Short CBC 01/20/25 Range/Units 13:05 WBC 3.9 (3.6-11.0) Thou/mm3 Hgb 9.6 L (12.0-16.0) g/dL Hct 29.4 L (36.0-46.0) % Plt Count 140 (140-440) Thou/mm3 BMP 01/20/25 13:05 Sodium 140 Potassium 3.8 Chloride 104 Carbon Dioxide 28.4 BUN 19 Creatinine 1.2 Glucose 108 H Calcium 9.3 Cardiac Enzymes 01/20/25 Range/Units 13:05 Troponin I < 0.002 (0.0-0.045) ng/mL Liver Function 01/20/25 Range/Units 13:05 Total Bilirubin 0.4 (0.3-1.2) mg/dL AST 23 (0-34) U/L ALT 11 (10-49) U/L Alkaline Phosphatase 172 H (46-116) U/L Albumin 3.8 (3.4-4.8) gm/dL Urine 01/20/25 Range/Units 13:42 Urine Color Yellow (Lt Yel-Yel) Urine Clarity Clear (Clear/Hazy) Urine pH 7.0 (5.0-7.0) Ur Specific [place] 1.027 (1.001-1.035) Urine Protein Negative (Neg - Trace) Urine Glucose (UA) 4+ A (Negative) Assessment and Plan Additional Assessment & Plan Additional Plan: # Decompensated alcoholic liver disease with advanced portal hypertension esophageal varices and intractable ascites Plan Agree with the IV Lasix Agree with IV albumin Add spironolactone 25 mg p.o. twice daily Scheduled for therapeutic paracentesis Monitor renal function closely Consent obtained for fiberoptic esophagogastroduodenoscopy with possible biopsy possible therapeutic intervention for prophylactic band ligation of the esophageal varices Agree with IV ceftriaxone for the possibility of subacute bacterial peritonitis Will follow the patient Other medical problems include COPD on home oxygen 2 L nasal cannula Essential hypertension Hypothyroidism Hyperlipidemia Thank you very much for the opportunity to participate in care of this patient
[2025-01-21] VITALS (21 sets, daily range): BP systolic 100–140; BP diastolic 50–89; PULSE 60–89; RESP 13–22; TEMP 36.1–37.2; O2SAT 90–98
[2025-01-21 06:33] LABS: Basophils # (Auto) 0.1 Thou/mm3 (0.0-0.2); Basophils % (Auto) 1 % (0-2.5); Eosinophils # (Auto) 0.2 Thou/mm3 (0.0-0.5); Eosinophils % (Auto) 6 % (0-10); Immature Granulocytes Auto 0.01 Thou/mm3 (0.00-0.00); Mean Corpuscular Hemoglobin 25.1 pg (25.0-35.0); Monocytes # (Auto) 0.4 Thou/mm3 (0.0-0.8); Monocytes % (Auto) 12 % (0-12); Neutrophils # (Auto) 1.6 Thou/mm3 (1.8-7.7); Nucleated Red Blood Cell # 0.00 Thou/mm3 (0.00-0.00); Nucleated Red Blood Cell % 0 /100 WBC (0)
[2025-01-21 06:41] LABS: Hematocrit 27.2 % (36.0-46.0); Lymphocytes # (Auto) 1.4 Thou/mm3 (1.0-4.8); Lymphocytes % (Auto) 38 % (10-50); Mean Corpuscular HGB Conc 31.6 g/dl (31.0-37.0); Mean Corpuscular Volume 80 fL (80-100); Neutrophils % (Auto) 43 % (37-80); Platelet Count 139 Thou/mm3 (140-440); RDW Standard Deviation 43.9 fL (36.4-46.3); Red Blood Count 3.42 Miln/mm3 (4.00-5.20); White Blood Count 3.7 Thou/mm3 (3.6-11.0)
[2025-01-21 06:42] LABS: INR 1.2 (0.9-1.3); Partial Thromboplastin Time 27.2 Seconds (22.0-36.0); Prothrombin Time 12.9 Seconds (9.0-12.2)
[2025-01-21 06:44] LABS: Hemoglobin 8.6 g/dL (12.0-16.0)
[2025-01-21] MEDS: LEVOTHYROXINE SODIUM 112 MCG TABLET PO (06:50)
[2025-01-21] MEDS: FUROSEMIDE INJ 10 MG/ML 4ML VIAL 40 MG IVP (06:50)
[2025-01-21 06:51] LABS: Vitamin B12 871 pg/mL (211-911)
[2025-01-21 07:00] LABS: Iron 14 mcg/dL (50-170); Percent Iron Saturation 3 % (20-55); Total Iron Binding Capacity 371 mcg/dL (250-425); Unsaturated Iron Binding 357 (225-295)
[2025-01-21 07:11] LABS: Alanine Aminotransferase 9 U/L (10-49); Albumin, Serum 3.3 gm/dL (3.4-4.8); Albumin/Globulin Ratio 1.2 (1.2-2.2); Alkaline Phosphatase 144 U/L (46-116); Anion Gap 9 (7-16); Aspartate Amino Transferase 25 U/L (0-34); BUN/Creatinine Ratio 15 Ratio (12-20); Bilirubin,Total 0.3 mg/dL (0.3-1.2); Blood Urea Nitrogen 20 mg/dL (9-23); Calcium 8.7 mg/dL (8.3-10.6); Calcium (Corrected) 9.3 mg/dL (8.5-10.1); Carbon Dioxide 28.7 mMol/L (20.0-31.0); Chloride 103 mMol/L (98-107); Creatinine (Component) 1.3 mg/dL (0.6-1.3); Estimated Creatinine Clearance 44.5 mL/min (>60); Globulin 2.7 gm/dL (2.3-3.5); Glucose 160 mg/dL (74-106); Magnesium 1.5 mg/dL (1.6-2.6); Osmolality,Calculated 286 (275-295); Phosphorous 4.0 mg/dL (2.4-5.1); Potassium 3.8 mMol/L (3.4-5.1); Sodium 141 mMol/L (136-145); Total Protein 6.0 gm/dL (5.7-8.2); eGFR 46 See Note
[2025-01-21] MEDS: PREGABALIN 75 MG CAPSULE 150 MG PO ×2 (09:51→20:44)
[2025-01-21] MEDS: SPIRONOLACTONE 25 MG TABLET PO ×2 (09:51→20:42)
[2025-01-21] MEDS: FERROUS SULF 325 MG TABLET PO (09:52)
[2025-01-21] MEDS: cefTRIAXone/D5w 1gm IV premix 1 GM/50 ML BAG IV (09:54)
[2025-01-21] MEDS: LIDOCAINE 5% 1 PATCH TOP (11:22)
[2025-01-21] MEDS: PRIMIDONE 50 MG TABLET 250 MG PO (11:25)
--- NOTE | 2025-01-21 11:25 | PC.SS ---
Maria Elena Mario is a 64 year-old female admitted to Med Surg for Ascities. SS conducted bedside contact with the patient to complete initial assessment and to discuss discharge planning. Role and reason explained. Patient confirmed demographic information. Patient identifies dtr Marizoltravis Eli as her surrogate decision maker. Pt states she is able to complete all ADL?s independently. No DME needed. Pts PCP is Dr. Musa (she sees Shandra Rosas, [facility]). Discharge options discussed and the pt wishes to return home.? Family will provide transportation upon DC. No further intervention required at this time, licensed social worker would be available to address any further concerns. DC Plan: Home Contact: Demond Fontana Address: Confirmed on face sheet PCP: [facility]
--- NOTE | 2025-01-21 12:00 | XR_ITS ---
Examination: Ultrasound-guided paracentesis Abdominal sonogram limited Date and time of exam: January 21, 2025, 1145 hours INDICATIONS: Cirrhosis, increasing ascites and abdominal distention this week Informed consent provided. A timeout was completed verifying correct patient, procedure, site, positioning, and special adequate movement if applicable. Technique: Multiple sonographic images of the abdomen have been obtained. Appropriate area for paracentesis was marked. Local anesthesia is obtained with 1% lidocaine. Yueh catheter is successfully introduced. Findings: Abdominal sonographic images demonstrate sufficient ascitic fluid for paracentesis. After placing the Yueh catheter, 8400 cc of fluid were successfully removed. During and after completion of the procedure the patient appear in satisfactory and stable condition with no complications observed. Estimated blood loss 0 cc Impression: Abdominal ascites Successful ultrasound-guided paracentesis as described above
[2025-01-21] MEDS: ALBUMIN HUMAN 25% IVPB 12.5 GM/50 ML BTL IV ×3 (13:54→15:10)
[2025-01-21] MEDS: Magnesium Sulfate 2 GM Ivpb 2 GM/50 ML BAG IV (14:16)
--- NOTE | 2025-01-21 15:14 | ESPR_ITS ---
Documentation for date of: 01/21/25 Subjective Subjective Interval history: No acute overnight events. Had good urine output overnight, however wasn't recorded in chart. Completed successful paracentesis with IR, 8.4 L fluid removed. Currently n.p.o. for endoscopy later today and possible colonoscopy tomorrow. Denies fever, chills, headaches, chest pain, sob, cough, GI or urinary symptoms. Exam Vital Signs Temp Pulse Resp BP Pulse Ox O2 Del Method O2 Flow Rate 97.3 F 72 17 105/54 L 94 L Room Air 3 01/21/25 07:49 01/21/25 09:51 01/21/25 07:49 01/21/25 09:51 01/21/25 07:49 01/21/25 04:00 01/21/25 03:45 Narrative Exam GENERAL * Normal appearing adult female, NAD. HEENT * NCAT.?GEOVANNI. Oral mucosa is moist. Patent Nares NECK * Supple, nontender, no JVD. CHEST * RRR, no m/g/r * CTAB, no w/r/r, symmetrical expansion. ABDOMEN * Soft, diffusely distended, ascites, positive fluid shift, mildly tender throughout. * No guarding/rebound tenderness/masses. * Bowel sounds presents EXTREMITIES * No edema/cyanosis.? * Improving alondra LE edema extending above the knee. SKIN * Warm and dry, no jaundice/rashes. Slightly pale. NEUROMUSCULAR * Moves all 4 extremities well, with full ROM and good CSM. * No focal neurologic deficits. PSYCHIATRY * Normal mood and affect, cooperative, no SI or HI or hallucinations. Objective Labs 01/22/25 05:37 01/22/25 05:37 Labs: Laboratory Results - last 24 hr 01/20/25 01/21/25 13:05 05:25 WBC 3.7 RBC 3.42 L Hgb 8.6 L Hct 27.2 L MCV 80 MCH 25.1 MCHC 31.6 RDW Std Deviation 43.9 Plt Count 139 L Neut % (Auto) 43 Lymph % (Auto) 38 [place] % (Auto) 12 Eos % (Auto) 6 Baso % (Auto) 1 Neut # (Auto) 1.6 L Lymph # (Auto) 1.4 [place] # (Auto) 0.4 Eos # (Auto) 0.2 Baso # (Auto) 0.1 Immature Gran # (Auto) 0.01 H Absolute Nucleated RBC 0.00 Immature Gran % 0 Nucleated RBC % 0 PT 12.9 H INR 1.2 APTT 27.2 Sodium 141 Potassium 3.8 Chloride 103 Carbon Dioxide 28.7 Anion Gap 9 BUN 20 Creatinine 1.3 Estim Creat Clear Calc 44.5 L eGFR 46 L BUN/Creatinine Ratio 15 Glucose 160 H D Calculated Osmolality 286 Calcium 8.7 Corrected Calcium 9.3 Phosphorus 4.0 Magnesium 1.5 L Iron 14 L TIBC 371 Iron Saturation 3 L Unsat Iron Binding 357 H Total Bilirubin 0.3 AST 25 ALT 9 L Alkaline Phosphatase 144 H D Total Protein 6.0 Albumin 3.3 L D Globulin 2.7 Albumin/Globulin Ratio 1.2 Vitamin B12 871 Folate 17.67 Quality Measures Quality Measures none Advance care planning discussed with:: patient Assessment & Plan Assessment Current Active Medications: Generic Name Dose Route Start Last Admin Trade Name Freq PRN Reason Stop Dose Admin Acetaminophen 650 mg 01/20/25 16:47 Acetaminophen 325 Mg Tablet PO 02/19/25 16:46 Q6H PRN PAIN SCALE 1-3 (mild Acetaminophen 650 mg 01/20/25 16:47 Acetaminophen 325 Mg Tablet PO 02/19/25 16:46 Q6H PRN Fever >100.4 Hydrocodone Bitart/Acetaminophen 1 tab 01/20/25 16:47 01/21/25 06:50 Hydrocodone/Apap 10/325 Tab PO 01/25/25 16:46 1 tab Q4HR PRN Administration PAIN SCALE 7-10 (Severe Albuterol/Ipratropium 3 ml 01/20/25 18:38 Albuterol/Ipratropium (Duoneb) Rt Lisset 3 Ml Nebu INH 02/19/25 18:37 Q6HRRT PRN Wheezing Dextrose 25 ml 01/20/25 18:39 Dextrose 50%-Water Inj 50 Ml Syringe IV 02/19/25 18:38 Q15MIN PRN BG 50-70 responsive npo pt Dextrose 50 ml 01/20/25 18:39 Dextrose 50%-Water Inj 50 Ml Syringe IV 02/19/25 18:38 Q15MIN PRN BG <50 OR BG <70 & pt unresponsive Ferrous Sulfate 325 mg 01/21/25 11:30 01/21/25 11:30 Ferrous Sulf 325 Mg Tablet PO 02/20/25 11:29 Not Given QOD REYNA Furosemide 20 mg 01/21/25 18:00 Furosemide Inj 10 Mg/Ml 4ml Vial IVP 02/20/25 17:59 BIDD REYNA Glucagon 1 mg 01/20/25 18:39 Glucagon Inj 1 Mg Vial IM Q15MIN PRN BG <70, and no IV access Heparin Sodium (Porcine) 5,000 unit 01/20/25 21:00 01/21/25 09:53 Heparin Sod Inj 5000 Unit/Ml Vial SC 02/03/25 20:59 Not Given BID REYNA Ceftriaxone Sodium/Dextrose 1 gm in 50 mls @ 100 mls/hr 01/20/25 17:00 01/21/25 09:54 Rocephin/D5w 1gm Iv Premix IV 01/27/25 16:59 100 mls/hr QDAY REYNA Administration Albumin Human 12.5 gm in 50 mls @ 50 mls/hr 01/21/25 14:39 01/21/25 14:58 Albuminar-25 Ivpb IV 01/21/25 15:38 50 mls/hr X1 ONE Administration Insulin Human Lispro 0 unit 01/20/25 21:00 01/21/25 11:30 Insulin Lispro (Admelog) 1 Unit/0.01 Ml Unit SC 02/19/25 20:59 Not Given ACHS [facility] Protocol Levothyroxine Sodium 112 mcg 01/21/25 06:00 01/21/25 06:50 Levothyroxine Sodium 112 Mcg Tablet PO 02/20/25 05:59 112 mcg ACBR REYNA Administration Lidocaine 1 patch 01/21/25 10:22 Lidocaine 5% 1 Patch TOP 02/20/25 10:21 UD PRN Back pain Loratadine 10 mg 01/21/25 09:00 01/21/25 09:52 Loratadine 10 Mg Tablet PO 02/20/25 08:59 Not Given QDAY [facility] Metoprolol Succinate 50 mg 01/21/25 09:00 Metoprolol Succinate Xl 25 Mg Tabcr PO 02/20/25 08:59 QDAY [facility] Ondansetron HCl 4 mg 01/20/25 16:47 01/20/25 22:46 Ondansetron Inj 2 Mg/Ml Inj 2 Ml IVP 02/19/25 16:46 4 mg Q6H PRN Administration NAUSEA OR VOMITING Protocol Oxycodone/Acetaminophen 1 tab 01/20/25 16:47 01/20/25 20:43 Oxycodone/Apap 5/325 Tablet PO 01/25/25 16:46 1 tab Q6H PRN Administration PAIN SCALE 4-6 (Moderate Pantoprazole Sodium 40 mg 01/21/25 09:00 01/21/25 09:37 Pantoprazole Inj 40 Mg Vial IVP 02/20/25 08:59 40 mg BID REYNA Administration Pregabalin 150 mg 01/20/25 21:00 01/21/25 09:51 Pregabalin 75 Mg Capsule PO 02/19/25 20:59 150 mg BID REYNA Administration Primidone 1 mg 01/21/25 21:00 Primidone 50 Mg Tablet PO 01/26/25 20:59 HS REYNA Primidone 250 mg 01/21/25 10:30 01/21/25 11:25 Primidone 50 Mg Tablet PO 01/26/25 10:29 250 mg QDAY REYNA Administration Spironolactone 25 mg 01/21/25 09:00 01/21/25 09:51 Spironolactone 25 Mg Tablet PO 02/20/25 08:59 25 mg BID REYNA Administration Plan 64 year-old female with PMHx of alcoholic liver cirrhosis, COPD on home O2, hypothyroidism, asthma, HTN, T2DM and anxiety who presented to the ED with worsening ascites and abdominal discomfort. Admitted under observation for therapeutic/diagnostic paracentesis. Significant ascites Alcoholic liver cirrhosis Significant alcohol use history, cirrhosis diagnosed in 08/2023. Has been on SPIRONOLACTONE, presenting with 1 month of worsening abdominal ascites. Abdominal CT showed cirrhosis, significant ascites, prominent splenomegaly, anasarca, esophageal and perigastric varices, no bowel obstruction. Ultrasound gallbladder showed distended gallbladder, negative for cholelithiasis, mildly thickened gallbladder wall likely from ascites. Anasarca on exam, with 2+ bilateral extremity edema extending above the knee. MELD score 9 equates to 6% mortality in 3 months. Child-Wilhelm score 7, Class B, indication for transplant evaluation. Paracentesis removed 8.4 L fluids, ALBUMIN was given pre and post para. ? N.p.o. midnight ? CEFTRIAXONE for SBP prophylaxis ? LASIX 40 BID for lower extremity edema. ? Continue SPIRONOLACTONE 25 mg BID ? Fluid restriction ? Consider PROPRANOLOL for varices prophylactics if BP allows ? Follow-up paracentesis fluid analysis Microcytic anemia (stable) Esophageal and perigastric varices Hgb 9.6, baseline 11.4. MCV 77 Likely iron deficiency versus cirrhosis. CT showed esophageal and perigastric varices. Reports chronic, recurrent hemorrhoidal bleed, but denies dark stool or upper GI bleed. Had an EGD last year and was abnormal. She is on a 5-year colonoscopy scheduled for colonic polyps, last colonoscopy 5 years ago. B12 and folate WNL. Iron stores are low. ? Transfuse if Hgb less than 8 ? Pending GI recommendation for possible EGD ? Started daily oral iron supplements HTN Hypothyroidism Asymptomatic sinus bradycardia Currently normotensive, normocardic. EKG shows sinus bradycardia, likely cirrhosis related on oral dysfunction versus BETA-BLOCKERS. ? Continue home LEVOTHYROXINE 112 mcg AC BR ? Consider resume home METOPROLOL as indicated COPD, asthma Chronic respiratory failure, on home 2 L O2 No signs of asthma or COPD exacerbation ? DuoNebs q.6h. PRN T2DM A1c 7.7 from 08/2024. ? INSULIN sliding scale ? Accu-Cheks Elevated lipase Lipase 74, no nausea or vomiting, no epigastric pain subjectively on exam. No radiographic findings of acute pancreatitis. ? 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 CR 1.2, baseline 0.9. GFR 50. BUN 19. UA negative for UTI. Anticipate improvement with ALBUMIN. ? Renally dose meds, avoid overdiuresis and NEPHROTOXINS ? Daily CMP Hypophosphatemia ? Repleted ? Daily labs, replete as needed Health maintenance Diet: Renal diet, n.p.o. midnight 01/21/2025 GI prophylaxis: PROTONIX DVT prophylaxis: HEPARIN subcu, held at midnight 01/21/2025 Antibiotics: CEFTRIAXONE CODE STATUS: Full code Disposition: Admitted under observation for paracentesis Case was discussed with attending physician. Keith Daly DO PGY II This document was transcribed using voice recognition technology. Minor inaccuracies may be present. Attending Provider Attestation/Addendum I have examined the patient, reviewed labs and imaging findings, discussed the case with the resident(s), and reviewed entered orders. I agree with the plan of care as outlined in this note, with these additional summaries/recommendations: Patient seen at bedside. No acute overnight events. She reports improvement in generalized swelling after starting IV diuresis. Patient went for diagnostic and therapeutic paracentesis today. No previous history of paracentesis. Patient had 8400 cc of peritoneal fluid removed. We will send for fluid studies. Albumin replacement ordered. Patient has underlying alcoholic cirrhosis and is yet to establish care with gastroenterology or ergonomic specialist. Gastroenterology was consulted on admission with plans for EGD. Esophageal and perigastric varices were seen on CT scan. Continue diuresis. Low-salt diet. Patient will need outpatient follow-up for hepatitis B and A vaccines. Continue home levothyroxine for hypothyroidism. Continue insulin sliding scale for diabetes mellitus type 2. Continue home antihypertensives as tolerated. Patient updated on the plan and in agreement. All questions answered to satisfaction. Please see residents note for additional details and management. Dr. Digna MD
--- NOTE | 2025-01-21 15:54 | PC.SS ---
Rounding: Pending EGD
--- NOTE | 2025-01-21 20:08 | SUR.PHASEI ---
2007 Transfer to room 376 in stable condition, awake and alert no complaints no s/s of distress noted vitals stable.
[2025-01-21] MEDS: FUROSEMIDE INJ 10 MG/ML 4ML VIAL 20 MG IVP (20:41)
[2025-01-21] MEDS: HEPARIN SOD INJ 5000 UNIT/ML VIAL SC (20:43)
[2025-01-21] MEDS: ZOLPIDEM 5 MG TABLET PO (20:43)
[2025-01-21] MEDS: PRIMIDONE 50 MG TABLET PO (20:54)
[2025-01-22] VITALS (18 sets, daily range): BP systolic 93–114; BP diastolic 51–63; PULSE 68–98; RESP 13–20; TEMP 36.1–36.6; O2SAT 90–98
[2025-01-22] MEDS: LEVOTHYROXINE SODIUM 112 MCG TABLET PO (05:49)
[2025-01-22 06:02] LABS: Basophils # (Auto) 0.0 Thou/mm3 (0.0-0.2); Basophils % (Auto) 1 % (0-2.5); Eosinophils # (Auto) 0.2 Thou/mm3 (0.0-0.5); Eosinophils % (Auto) 7 % (0-10); Hematocrit 29.4 % (36.0-46.0); Hemoglobin 9.3 g/dL (12.0-16.0); Immature Granulocytes Auto 0.01 Thou/mm3 (0.00-0.00); Lymphocytes # (Auto) 1.1 Thou/mm3 (1.0-4.8); Lymphocytes % (Auto) 35 % (10-50); Mean Corpuscular HGB Conc 31.6 g/dl (31.0-37.0); Mean Corpuscular Hemoglobin 24.8 pg (25.0-35.0); Mean Corpuscular Volume 78 fL (80-100); Monocytes # (Auto) 0.4 Thou/mm3 (0.0-0.8); Monocytes % (Auto) 13 % (0-12); Neutrophils # (Auto) 1.5 Thou/mm3 (1.8-7.7); Neutrophils % (Auto) 44 % (37-80); Nucleated Red Blood Cell # 0.00 Thou/mm3 (0.00-0.00); Nucleated Red Blood Cell % 0 /100 WBC (0); Platelet Count 116 Thou/mm3 (140-440); RDW Standard Deviation 43.6 fL (36.4-46.3); Red Blood Count 3.75 Miln/mm3 (4.00-5.20); White Blood Count 3.3 Thou/mm3 (3.6-11.0)
[2025-01-22 07:06] LABS: Alanine Aminotransferase 7 U/L (10-49); Albumin, Serum 3.4 gm/dL (3.4-4.8); Albumin/Globulin Ratio 1.2 (1.2-2.2); Alkaline Phosphatase 138 U/L (46-116); Anion Gap 11 (7-16); Aspartate Amino Transferase 18 U/L (0-34); BUN/Creatinine Ratio 10 Ratio (12-20); Bilirubin,Total 0.3 mg/dL (0.3-1.2); Blood Urea Nitrogen 13 mg/dL (9-23); Calcium 8.8 mg/dL (8.3-10.6); Calcium (Corrected) 9.3 mg/dL (8.5-10.1); Carbon Dioxide 28.9 mMol/L (20.0-31.0); Chloride 103 mMol/L (98-107); Creatinine (Component) 1.3 mg/dL (0.6-1.3); Estimated Creatinine Clearance 44.5 mL/min (>60); Globulin 2.8 gm/dL (2.3-3.5); Glucose 189 mg/dL (74-106); Magnesium 1.4 mg/dL (1.6-2.6); Osmolality,Calculated 290 (275-295); Phosphorous 4.1 mg/dL (2.4-5.1); Potassium 3.8 mMol/L (3.4-5.1); Sodium 143 mMol/L (136-145); Total Protein 6.2 gm/dL (5.7-8.2); eGFR 46 See Note
[2025-01-22] MEDS: SPIRONOLACTONE 25 MG TABLET PO ×2 (08:45→20:59)
[2025-01-22] MEDS: PREGABALIN 75 MG CAPSULE 150 MG PO ×2 (08:45→20:58)
[2025-01-22] MEDS: PRIMIDONE 50 MG TABLET 250 MG PO (08:45)
[2025-01-22] MEDS: cefTRIAXone/D5w 1gm IV premix 1 GM/50 ML BAG IV (08:49)
[2025-01-22] MEDS: Magnesium Sulfate 4 GM Ivpb 4 GM/50 ML BAG IV (08:50)
--- NOTE | 2025-01-22 09:02 | ESPR_ITS ---
Documentation for date of: 01/22/25 Subjective Subjective Interval history: No acute overnight events. Denies new or worsening symptoms. Tolerated paracentesis well, although blood pressure has been soft this morning, we decreased her diuresis and initiated MIDODRINE. This morning she had RR for AMS, she was found obtunded, difficult to arouse. Stroke alert was initiated, however her symptoms resolved shortly and she was back at baseline. NIHSS score 0. Head CT was negative for acute pathology. CXR was negative. Labs showed normal lactic acid, ammonia, and troponin. CMP was unchanged from the morning. Telemetry neuro recommended no additional workup. Will monitor closely, and continue with q.4h. neurochecks. Exam Vital Signs Temp Pulse Resp BP Pulse Ox O2 Del Method O2 Flow Rate 96.9 F 80 18 98/52 L 91 L Room Air 1 01/22/25 08:00 01/22/25 08:45 01/22/25 08:00 01/22/25 08:45 01/22/25 08:00 01/22/25 08:00 01/21/25 20:57 Narrative Exam GENERAL * Normal appearing adult female, NAD. HEENT * NCAT.?GEOVANNI. Oral mucosa is moist. Patent Nares NECK * Supple, nontender, no JVD. CHEST * RRR, no m/g/r * CTAB, no w/r/r, symmetrical expansion. ABDOMEN * Soft, mildly distended, mildly tender throughout. * No guarding/rebound tenderness/masses. * Bowel sounds presents EXTREMITIES * No edema/cyanosis.? * Improved alondra LE edema extending above the knee. SKIN * Warm and dry, no jaundice/rashes. Slightly pale. NEUROMUSCULAR * Moves all 4 extremities well, with full ROM and good CSM. * No focal neurologic deficits. PSYCHIATRY * Normal mood and affect, cooperative, no SI or HI or hallucinations. Objective Labs 01/23/25 05:35 01/23/25 05:35 Labs: Laboratory Results - last 24 hr 01/22/25 05:37 WBC 3.3 L RBC 3.75 L Hgb 9.3 L Hct 29.4 L MCV 78 L MCH 24.8 L MCHC 31.6 RDW Std Deviation 43.6 Plt Count 116 L Neut % (Auto) 44 Lymph % (Auto) 35 [place] % (Auto) 13 H Eos % (Auto) 7 Baso % (Auto) 1 Neut # (Auto) 1.5 L Lymph # (Auto) 1.1 [place] # (Auto) 0.4 Eos # (Auto) 0.2 Baso # (Auto) 0.0 Immature Gran # (Auto) 0.01 H Absolute Nucleated RBC 0.00 Immature Gran % 0 Nucleated RBC % 0 Sodium 143 Potassium 3.8 Chloride 103 Carbon Dioxide 28.9 Anion Gap 11 BUN 13 Creatinine 1.3 Estim Creat Clear Calc 44.5 L eGFR 46 L BUN/Creatinine Ratio 10 L Glucose 189 H Calculated Osmolality 290 Calcium 8.8 Corrected Calcium 9.3 Phosphorus 4.1 Magnesium 1.4 L Total Bilirubin 0.3 AST 18 ALT 7 L Alkaline Phosphatase 138 H Total Protein 6.2 Albumin 3.4 Globulin 2.8 Albumin/Globulin Ratio 1.2 Quality Measures Quality Measures none Advance care planning discussed with:: patient Assessment & Plan Assessment Current Active Medications: Generic Name Dose Route Start Last Admin Trade Name Freq PRN Reason Stop Dose Admin Acetaminophen 650 mg 01/20/25 16:47 Acetaminophen 325 Mg Tablet PO 02/19/25 16:46 Q6H PRN PAIN SCALE 1-3 (mild Acetaminophen 650 mg 01/20/25 16:47 Acetaminophen 325 Mg Tablet PO 02/19/25 16:46 Q6H PRN Fever >100.4 Hydrocodone Bitart/Acetaminophen 1 tab 01/20/25 16:47 01/21/25 06:50 Hydrocodone/Apap 10/325 Tab PO 01/25/25 16:46 1 tab Q4HR PRN Administration PAIN SCALE 7-10 (Severe Albuterol/Ipratropium 3 ml 01/20/25 18:38 Albuterol/Ipratropium (Duoneb) Rt Lisset 3 Ml Nebu INH 02/19/25 18:37 Q6HRRT PRN Wheezing Dextrose 25 ml 01/20/25 18:39 Dextrose 50%-Water Inj 50 Ml Syringe IV 02/19/25 18:38 Q15MIN PRN BG 50-70 responsive npo pt Dextrose 50 ml 01/20/25 18:39 Dextrose 50%-Water Inj 50 Ml Syringe IV 02/19/25 18:38 Q15MIN PRN BG <50 OR BG <70 & pt unresponsive Ferrous Sulfate 325 mg 01/21/25 11:30 01/21/25 11:30 Ferrous Sulf 325 Mg Tablet PO 02/20/25 11:29 Not Given QOD REYNA Furosemide 20 mg 01/21/25 18:00 01/22/25 05:21 Furosemide Inj 10 Mg/Ml 4ml Vial IVP 02/20/25 17:59 Not Given BIDD REYNA Glucagon 1 mg 01/20/25 18:39 Glucagon Inj 1 Mg Vial IM Q15MIN PRN BG <70, and no IV access Heparin Sodium (Porcine) 5,000 unit 01/20/25 21:00 01/22/25 08:49 Heparin Sod Inj 5000 Unit/Ml Vial SC 02/03/25 20:59 Not Given BID REYNA Ceftriaxone Sodium/Dextrose 1 gm in 50 mls @ 100 mls/hr 01/20/25 17:00 01/22/25 08:49 Rocephin/D5w 1gm Iv Premix IV 01/27/25 16:59 100 mls/hr QDAY REYNA Administration Magnesium Sulfate 4 gm in 50 mls @ 12.5 mls/hr 01/22/25 08:34 01/22/25 08:50 Magnesium Sulfate Ivpb IV 01/22/25 12:33 12.5 mls/hr X1 ONE Administration Albumin Human 12.5 gm in 250 mls @ 100 mls/hr 01/22/25 08:53 Albuminar-5 Ivpb IV 01/26/25 08:52 QDAY REYNA Insulin Human Lispro 0 unit 01/20/25 21:00 01/22/25 07:25 Insulin Lispro (Admelog) 1 Unit/0.01 Ml Unit SC 02/19/25 20:59 Not Given ACHS [facility] Protocol Levothyroxine Sodium 112 mcg 01/21/25 06:00 01/22/25 05:49 Levothyroxine Sodium 112 Mcg Tablet PO 02/20/25 05:59 112 mcg ACBR REYNA Administration Lidocaine 1 patch 01/21/25 10:22 Lidocaine 5% 1 Patch TOP 02/20/25 10:21 UD PRN Back pain Loratadine 10 mg 01/21/25 09:00 01/22/25 08:45 Loratadine 10 Mg Tablet PO 02/20/25 08:59 10 mg QDAY REYNA Administration Metoprolol Succinate 50 mg 01/21/25 09:00 Metoprolol Succinate Xl 25 Mg Tabcr PO 02/20/25 08:59 QDAY REYNA Midodrine 10 mg 01/22/25 09:00 Midodrine 5 Mg Tablet PO 02/21/25 08:59 TID REYNA Ondansetron HCl 4 mg 01/20/25 16:47 01/20/25 22:46 Ondansetron Inj 2 Mg/Ml Inj 2 Ml IVP 02/19/25 16:46 4 mg Q6H PRN Administration NAUSEA OR VOMITING Protocol Oxycodone/Acetaminophen 1 tab 01/20/25 16:47 01/22/25 05:50 Oxycodone/Apap 5/325 Tablet PO 01/25/25 16:46 1 tab Q6H PRN Administration PAIN SCALE 4-6 (Moderate Pantoprazole Sodium 40 mg 01/21/25 09:00 01/22/25 08:47 Pantoprazole Inj 40 Mg Vial IVP 02/20/25 08:59 40 mg BID REYNA Administration Pregabalin 150 mg 01/20/25 21:00 01/22/25 08:45 Pregabalin 75 Mg Capsule PO 02/19/25 20:59 150 mg BID REYNA Administration Primidone 250 mg 01/21/25 10:30 01/22/25 08:45 Primidone 50 Mg Tablet PO 01/26/25 10:29 250 mg QDAY REYNA Administration Primidone 50 mg 01/21/25 21:00 01/21/25 20:54 Primidone 50 Mg Tablet PO 01/26/25 20:59 50 mg HS REYNA Administration Spironolactone 25 mg 01/21/25 09:00 01/22/25 08:45 Spironolactone 25 Mg Tablet PO 02/20/25 08:59 25 mg BID REYNA Administration Plan 64 year-old female with PMHx of alcoholic liver cirrhosis, COPD on home O2, hypothyroidism, asthma, HTN, T2DM and anxiety who presented to the ED with worsening ascites and abdominal discomfort. Admitted under observation for therapeutic/diagnostic paracentesis. Significant ascites (resolving) Alcoholic liver cirrhosis Significant alcohol use history, cirrhosis diagnosed in 08/2023. Has been on SPIRONOLACTONE, presenting with 1 month of worsening abdominal ascites. Abdominal CT showed cirrhosis, significant ascites, prominent splenomegaly, anasarca, esophageal and perigastric varices, no bowel obstruction. Ultrasound gallbladder showed distended gallbladder, negative for cholelithiasis, mildly thickened gallbladder wall likely from ascites. Anasarca on exam, with 2+ bilateral extremity edema extending above the knee. MELD score 9 equates to 6% mortality in 3 months. Child-Wilhelm score 7, Class B, indication for transplant evaluation. Paracentesis removed 8.4 L fluids, ALBUMIN was given pre and post para. BP soft after paracentesis and diuresis. We gave additional ALBUMIN, decrease LASIX, started MIDODRINE TID. BP appears to have improved. ? LASIX 20 BID for lower extremity edema. ? Continue SPIRONOLACTONE 25 mg BID ? Fluid restriction ? Follow-up paracentesis fluid analysis Microcytic anemia (stable) Grade 1 esophageal varices Mild thrombocytopenia (resolved) Hgb 9.6, baseline 11.4. MCV 77 Likely iron deficiency versus cirrhosis. CT showed esophageal and perigastric varices. Reports chronic, recurrent hemorrhoidal bleed, but denies dark stool or upper GI bleed. Had an EGD last year and was abnormal. She is on a 5-year colonoscopy scheduled for colonic polyps, last colonoscopy 5 years ago. B12 and folate WNL. Iron stores are low. EGD showed grade 1 lower third esophageal varices, moderate patchy hemorrhagic characteristic of the gastric antrum. GI recommended outpatient colonoscopy. Hemoglobin stable. ? Transfuse if Hgb less than 8 ? Will need PROPRANOLOL for variceal prophylaxis, if BP can tolerate ? Continue daily oral iron supplements ? Continue CEFTRIAXONE for SBP prophylaxis (01/21 to present) HTN Hypothyroidism Asymptomatic sinus bradycardia Currently BP soft, normocardic. EKG shows sinus bradycardia, likely cirrhosis related on oral dysfunction versus BETA-BLOCKERS. ? Continue home LEVOTHYROXINE 112 mcg AC BR ? Consider resume home METOPROLOL when able ? Continue MIDODRINE 10 mg TID COPD, asthma Chronic respiratory failure, on home 2 L O2 No signs of asthma or COPD exacerbation ? DuoNebs q.6h. PRN ? Will discharge on TRELEGY T2DM A1c 7.7 from 08/2024. ? INSULIN sliding scale ? Accu-Cheks Elevated lipase Lipase 74, no nausea or vomiting, no epigastric pain subjectively on exam. No radiographic findings of acute pancreatitis. ? Continue to monitor Mild DONNA Likely hepatorenal. CR 1.2, baseline 0.9. GFR 50. BUN 19. UA negative for UTI. CR slightly worse at 1.3 after diuresis, BUN 13 and downtrending. ? Decrease diuresis, gave 500 cc NS bolus, gave ALBUMIN ? Renally dose meds, avoid overdiuresis and NEPHROTOXINS ? Daily CMP Electrolyte abnormalities ? Daily labs, replete as needed Anxiety ? Continue home LYRICA Health maintenance Diet: Renal diet GI prophylaxis: PROTONIX DVT prophylaxis: SCDs Antibiotics: CEFTRIAXONE CODE STATUS: Full code Disposition: Admitted under observation for paracentesis Case was discussed with attending physician. Keith Daly DO PGY II This document was transcribed using voice recognition technology. Minor inaccuracies may be present. Attending Provider Attestation/Addendum I have examined the patient, reviewed labs and imaging findings, discussed the case with the resident(s), and reviewed entered orders. I agree with the plan of care as outlined in this note, with these additional summaries/recommendations: Patient seen at bedside. No acute overnight events. Patient had rapid response this morning for change in mental status. Originally suspected possible TIA/CVA and stroke alert was called. While in route [address] patient returned to baseline mental status. Low suspicion for seizure as patient was not postictal. CVA/TIA ruled out. Patient was noted to be mildly hypotensive after paracentesis yesterday although low suspicion for syncopal episode at this time. She reports improvement in generalized swelling after starting IV diuresis. Patient went for diagnostic and therapeutic paracentesis 01/21/25. No previous history of paracentesis. Patient had 8400 cc of peritoneal fluid removed. Continue replacing albumin. Patient has underlying alcoholic cirrhosis and is yet to establish care with gastroenterology or supervisor area. Gastroenterology was consulted on admission with plans for EGD. Esophageal and perigastric varices were seen on CT scan. Continue diuresis. Low-salt diet. Patient will need outpatient follow-up for hepatitis B and A vaccines. Continue home levothyroxine for hypothyroidism. Continue insulin sliding scale for diabetes mellitus type 2. Continue home antihypertensives as tolerated. Patient updated on the plan and in agreement. All questions answered to satisfaction. Please see residents note for additional details and management. Dr. Digna MD
[2025-01-22] MEDS: MIDODRINE 5 MG TABLET 10 MG PO ×3 (09:21→22:44)
[2025-01-22] MEDS: ALBUMIN HUMAN 5% IVPB 12.5 GM/250 ML BTL IV ×2 (09:54→12:58)
--- NOTE | 2025-01-22 11:07 | XR_ITS ---
Examination: AP chest single view TECHNIQUE: Portable AP sitting chest single view Date and time: January 22, 2025 1145 hours Comparison 03/23/2025 INDICATIONS: Shortness of breath today. FINDINGS: Normal heart size No lobar pneumonia. No pulmonary edema. Prominent osteopenia IMPRESSION: No lobar pneumonia or pulmonary edema
--- NOTE | 2025-01-22 11:09 | XR_ITS ---
Examination: CT brain head without contrast. 2-D sagittal coronal reconstructions Date and time of exam:January 22, 2025 1119 hours INDICATIONS: Stroke alert, onset focal neurologic deficit beginning this morning CTDI: vol (mGy):47.1 DLP: (mGycm):949 Technique: Multiple CT axial sections of the brain have been obtained, 5 mm slice thickness. Contrast has not been administered. 2-D sagittal, coronal reconstructions have been obtained Low dose protocols were performed. One or more of the following dose reduction techniques were used; automated exposure control, adjustment of the mA and/or KV according to patient size, use of iterative reconstruction technique. Findings: No significant ventricular enlargement. Intra-axial or extra-axial hemorrhage density is not seen. No mass effect or midline shift Basal cisterns are not remarkable. Fourth ventricle is midline. Cranial vault intact. Impression: Negative for acute hemorrhage, mass effect or midline shift
[2025-01-22 11:35] LABS: Lactate (Lactic Acid) 1.3 mMol/L (0.4-2.0)
[2025-01-22 11:40] LABS: Basophils # (Auto) 0.1 Thou/mm3 (0.0-0.2); Basophils % (Auto) 1 % (0-2.5); Eosinophils # (Auto) 0.2 Thou/mm3 (0.0-0.5); Eosinophils % (Auto) 5 % (0-10); Hematocrit 28.6 % (36.0-46.0); Hemoglobin 9.3 g/dL (12.0-16.0); Immature Granulocytes Auto 0.01 Thou/mm3 (0.00-0.00); Lymphocytes # (Auto) 1.2 Thou/mm3 (1.0-4.8); Lymphocytes % (Auto) 29 % (10-50); Mean Corpuscular HGB Conc 32.5 g/dl (31.0-37.0); Mean Corpuscular Hemoglobin 25.0 pg (25.0-35.0); Mean Corpuscular Volume 77 fL (80-100); Monocytes # (Auto) 0.4 Thou/mm3 (0.0-0.8); Monocytes % (Auto) 11 % (0-12); Neutrophils # (Auto) 2.2 Thou/mm3 (1.8-7.7); Neutrophils % (Auto) 55 % (37-80); Nucleated Red Blood Cell # 0.00 Thou/mm3 (0.00-0.00); Nucleated Red Blood Cell % 0 /100 WBC (0); Platelet Count 142 Thou/mm3 (140-440); RDW Standard Deviation 42.2 fL (36.4-46.3); Red Blood Count 3.72 Miln/mm3 (4.00-5.20); White Blood Count 4.0 Thou/mm3 (3.6-11.0)
--- NOTE | 2025-01-22 11:47 | PD.TNEURO ---
Tele Neuro Consultation Consultation Date 01/22/25 Most Recent Vital Signs Last Vital Signs Temp 96.9 F 01/22/25 08:00 Pulse 80 01/22/25 09:21 Resp 18 01/22/25 08:00 BP 98/52 L 01/22/25 09:21 Pulse Ox 91 L 01/22/25 08:00 O2 Del Method Room Air 01/22/25 08:00 O2 Flow Rate 1 01/21/25 20:57 Laboratory-Coagulation Panel PT 12.9 Seconds (9.0-12.2) H 01/21/25 05:25 INR 1.2 (0.9-1.3) 01/21/25 05:25 APTT 27.2 Seconds (22.0-36.0) 01/21/25 05:25 Consultation Narrative [facility] Tele[facility]urology Consult Services Patient Name: Maria Elena Mario Date of : 1960 Identification Number: Date of Service: 01/22/2025 11:21:11 Diagnosis: ? G93.41 - Encephalopathy Metabolic Impression: ? Toxic metabolic encephalopathy I would not recommend IV thrombolytic therapy for this patient The patient is thrombocytopenic last platelet count was 116 repeat levels currently pending Were unsure of her last known normal time Lastly I do not feel that her symptoms are due to a TIA or acute ischemic stroke may be due to hyperammonemia as an ammonia level is currently pending No need for advanced imaging or an MRI of the brain at this time Await the results of the ammonia level and treat appropriately Toxic metabolic workup Delirium precautions Our recommendations are outlined below. Recommendations: ? Stroke/Telemetry Floor ? Neuro Checks (Q2) ? Bedside Swallow Eval ? DVT Prophylaxis ? IV Fluids, Normal Saline ? Head of Bed 30 Degrees ? Euglycemia and Avoid Hyperthermia (PRN Acetaminophen) Advanced Imaging: Advanced Imaging Deferred because: Stroke not suspected with clinical presentation and exam Metrics: Last Known Well: Unknown Dispatch Time: 01/22/2025 11:20:22 Initial Response Time: 01/22/2025 11:27:51 Symptoms: Slurred speech. Initial patient interaction: 01/22/2025 11:31:11 NIHSS Assessment Completed: 01/22/2025 11:32:59 Patient is not a candidate for Thrombolytic. Thrombolytic Medical Decision: 01/22/2025 11:33:01 Patient was not deemed candidate for Thrombolytic because of following reasons: LKW outside 4.[address] Head: I personally reviewed all the CT images that were available to me and it showed: No acute intracranial normality ED Physician not notified of diagnostic impression and management plan because Nurse History of Present Illness: Patient is a 64 year old Female. Inpatient stroke alert was called for symptoms of Slurred speech. 64-year-old female with a past medical history significant for alcoholic liver cirrhosis COPD on home oxygen Hypothyroidism and asthma as well as hypertension type 2 diabetes who currently is admitted to the hospital with abdominal distention She states she no longer does consume alcohol She is already been seen by gastroenterology their impression is decompensated alcoholic liver disease with advanced portal hypertension patient also has esophageal varices and intractable ascites Patient currently is on IV Lasix And she is scheduled for therapeutic paracentesis Stroke alert was called today at 11:00 in the morning unknown last normal time but patient was noted to be lethargic Ammonia levels are currently pending Past Medical History: ? Hypertension ? Diabetes Mellitus ? Hyperlipidemia ? There is no history of Atrial Fibrillation ? There is no history of Coronary Artery Disease ? There is no history of Stroke ? There is no history of Covid-19 ? There is no history of Seizures ? There is no history of Migraine Headaches ? There is no history of Dementia/MCI Medications: No Anticoagulant use No Antiplatelet use Reviewed EMR for current medications Allergies: Reviewed Social History: Alcohol Use: Former Family History: There is no family history of premature cerebrovascular disease pertinent to this consultation ROS : 14 Points Review of Systems was performed and was negative except mentioned in HPI. Past Surgical History: There Is No Surgical History Contributory To Today?s Visit Examination: BP(114/63), Pulse(71), Blood Glucose(189) 1A: Level of Consciousness - Alert; keenly responsive + 0 1B: Ask Month and Age - Both Questions Right + 0 1C: Blink Eyes & Squeeze Hands - Performs Both Tasks + 0 2: Test Horizontal Extraocular Movements - Normal + 0 3: Test Visual [place] - No Visual Loss + 0 4: Test Facial Palsy (Use Grimace if Obtunded) - Normal symmetry + 0 5A: Test Left Arm Motor Drift - No Drift for 10 Seconds + 0 5B: Test Right Arm Motor Drift - No Drift for 10 Seconds + 0 6A: Test Left Leg Motor Drift - No Drift for 5 Seconds + 0 6B: Test Right Leg Motor Drift - No Drift for 5 Seconds + 0 7: Test Limb Ataxia (FNF/Heel-Fernandez) - No Ataxia + 0 8: Test Sensation - Normal; No sensory loss + 0 9: Test Language/Aphasia - Normal; No aphasia + 0 10: Test Dysarthria - Normal + 0 11: Test Extinction/Inattention - No abnormality + 0 NIHSS Score: 0 Pre-Morbid Modified [place] Scale: 0 Points = No symptoms at all This consult was conducted in real time using interactive audio and video technology. Patient was informed of the technology being used for this visit and agreed to proceed. Patient located in hospital and provider located at home/office setting. Patient is being evaluated for possible acute neurologic impairment and high probability of imminent or life-threatening deterioration. I spent total of 35 minutes providing care to this patient, including time for face to face visit via telemedicine, review of medical records, imaging studies and discussion of findings with providers, the patient and/or family. Dr Chepe Dhillon [facility] For Inpatient follow-up with [facility] physician please call [facility] at . As we are not an outpatient service for any post hospital discharge needs please contact the hospital for assistance. If you have any questions for the [facility] physicians or need to reconsult for clinical or diagnostic changes please contact us via [facility] at .
[2025-01-22 11:56] LABS: Ammonia 15 uMol/L (11-32)
[2025-01-22] MEDS: INSULIN LISPRO (AdmeLOG) 1 UNIT/0.01 ML UNIT SC ×3 (12:01→21:13)
[2025-01-22] MEDS: RINGERS LACTATED 1000 ML 500 ML 999 ML IV (12:09)
[2025-01-22 12:40] LABS: Troponin I < 0.002 ng/mL (0.0-0.045)
[2025-01-22] MEDS: ALBUMIN HUMAN 25% IVPB 25 GM/100 ML BTL IV (13:05)
--- NOTE | 2025-01-22 15:10 | PC.SS ---
rounding note: Patient had a rapid. Stroke alert. Head CT was negative. Tele and Neuro Rec's pending
[2025-01-22] MEDS: FUROSEMIDE INJ 10 MG/ML VIAL 2 ML 20 MG IVP (17:17)
[2025-01-22] MEDS: LACTULOSE SYRUP 20 GM/30 ML UDC PO (17:26)
--- NOTE | 2025-01-22 18:17 | EVENTNT_ITS ---
Documentation for date of: 01/22/25 Event Note Event Note: Around 11 AM this morning, [facility] was called for acute AMS. She was found obtunded, difficult to awaken, had generalized weakness, worsening on the left, unable to verbalize her symptoms. Stroke alert was initiated. However, her symptoms resolved shortly and during transportation to [facility]. Head CT showed no acute pathology. Chest x-ray showed no active pulmonary disease. Labs showed normal, ammonia, troponin, and lactic acid. CBC was unchanged from this morning. On the teleneuro evaluation, NIHSS 0. Neuro does not believe symptoms due to TIA or ischemic stroke. Symptoms have completely resolved. Will continue to monitor cl osely with q.4h. neurochecks. Case was discussed with attending physician. Keith Daly DO PGY II This document was transcribed using voice recognition technology. Minor inaccuracies may be present.
--- NOTE | 2025-01-22 18:17 | PD.IMPROG ---
Documentation for date of: 01/22/25 Subjective Subjective Interval history: 64 years old female underwent upper endoscopy yesterday And showed 1 to esophageal varices and hemorrhagic gastritis Hemoglobin hematocrit relatively stable Exam Vital Signs Temp Pulse Resp BP Pulse Ox O2 Del Method O2 Flow Rate 97.8 F 81 17 113/53 L 98 Room Air 5 01/22/25 16:00 01/22/25 17:17 01/22/25 16:00 01/22/25 17:17 01/22/25 16:00 01/22/25 16:00 01/22/25 11:03 Routine Respiratory Exam Comments: Normal to auscultation Routine Abdominal Exam Comments: Soft nontender Objective Labs 01/23/25 05:35 01/23/25 05:35 Labs: Laboratory Results - last 24 hr 01/22/25 01/22/25 05:37 11:30 WBC 3.3 L 4.0 RBC 3.75 L 3.72 L Hgb 9.3 L 9.3 L Hct 29.4 L 28.6 L MCV 78 L 77 L MCH 24.8 L 25.0 MCHC 31.6 32.5 RDW Std Deviation 43.6 42.2 Plt Count 116 L 142 D Neut % (Auto) 44 55 Lymph % (Auto) 35 29 [place] % (Auto) 13 H 11 Eos % (Auto) 7 5 Baso % (Auto) 1 1 Neut # (Auto) 1.5 L 2.2 Lymph # (Auto) 1.1 1.2 [place] # (Auto) 0.4 0.4 Eos # (Auto) 0.2 0.2 Baso # (Auto) 0.0 0.1 Immature Gran # (Auto) 0.01 H 0.01 H Absolute Nucleated RBC 0.00 0.00 Immature Gran % 0 0 Nucleated RBC % 0 0 Sodium 143 Potassium 3.8 Chloride 103 Carbon Dioxide 28.9 Anion Gap 11 BUN 13 Creatinine 1.3 Estim Creat Clear Calc 44.5 L eGFR 46 L BUN/Creatinine Ratio 10 L Glucose 189 H Calculated Osmolality 290 Lactic Acid 1.3 Calcium 8.8 Corrected Calcium 9.3 Phosphorus 4.1 Magnesium 1.4 L Total Bilirubin 0.3 AST 18 ALT 7 L Alkaline Phosphatase 138 H Ammonia 15 Troponin I < 0.002 Total Protein 6.2 Albumin 3.4 Globulin 2.8 Albumin/Globulin Ratio 1.2 Impressions Impression: 1+ esophageal varices Hemorrhagic gastritis Assessment & Plan A&P Narrative # Decompensated alcoholic liver disease with advanced portal hypertension esophageal varices and intractable ascites Plan Agree with the IV Lasix Agree with IV albumin Add spironolactone 25 mg p.o. twice daily Scheduled for therapeutic paracentesis Monitor renal function closely Consent obtained for fiberoptic esophagogastroduodenoscopy with possible biopsy possible therapeutic intervention for prophylactic band ligation of the esophageal varices Agree with IV ceftriaxone for the possibility of subacute bacterial peritonitis Will follow the patient Other medical problems include COPD on home oxygen 2 L nasal cannula Essential hypertension Hypothyroidism Hyperlipidemia Thank you very much for the opportunity to participate in care of this patient Time Spent With Patient Time: Total time spent is greater than 50% in coordination of care (as documented) at patient's floor/unit and/or counseling patient:
[2025-01-22] MEDS: PRIMIDONE 50 MG TABLET PO (21:00)
[2025-01-22] MEDS: ONDANSETRON INJ 2 MG/ML INJ 2 ML 4 MG IVP (21:02)
[2025-01-22] MEDS: ZOLPIDEM 5 MG TABLET PO (22:47)
[2025-01-23] VITALS (20 sets, daily range): BP systolic 105–138; BP diastolic 48–64; PULSE 59–96; RESP 16–92; TEMP 36.3–39.3; O2SAT 89–98; BMI 30.5
--- NOTE | 2025-01-23 05:45 | PC.NURSE ---
85% O2 sat on room air, pt asleep- Reapplied O2 inh on at 2L/min/nc.
--- NOTE | 2025-01-23 06:14 | PC.NURSE ---
85% O2 sat on room air, pt asleep- Reapplied O2 inh on at 2L/min/nc.
[2025-01-23] MEDS: MIDODRINE 5 MG TABLET 10 MG PO ×3 (06:18→21:23)
[2025-01-23] MEDS: LEVOTHYROXINE SODIUM 112 MCG TABLET PO (06:18)
[2025-01-23] MEDS: FUROSEMIDE INJ 10 MG/ML VIAL 2 ML 20 MG IVP ×2 (06:18→17:29)
[2025-01-23 06:36] LABS: Basophils # (Auto) 0.1 Thou/mm3 (0.0-0.2); Basophils % (Auto) 1 % (0-2.5); Eosinophils # (Auto) 0.3 Thou/mm3 (0.0-0.5); Eosinophils % (Auto) 6 % (0-10); Hematocrit 28.2 % (36.0-46.0); Hemoglobin 8.9 g/dL (12.0-16.0); Immature Granulocytes Auto 0.01 Thou/mm3 (0.00-0.00); Lymphocytes # (Auto) 1.4 Thou/mm3 (1.0-4.8); Lymphocytes % (Auto) 35 % (10-50); Mean Corpuscular HGB Conc 31.6 g/dl (31.0-37.0); Mean Corpuscular Hemoglobin 24.9 pg (25.0-35.0); Mean Corpuscular Volume 79 fL (80-100); Monocytes # (Auto) 0.4 Thou/mm3 (0.0-0.8); Monocytes % (Auto) 11 % (0-12); Neutrophils # (Auto) 1.8 Thou/mm3 (1.8-7.7); Neutrophils % (Auto) 46 % (37-80); Nucleated Red Blood Cell # 0.00 Thou/mm3 (0.00-0.00); Nucleated Red Blood Cell % 0 /100 WBC (0); Platelet Count 149 Thou/mm3 (140-440); RDW Standard Deviation 43.7 fL (36.4-46.3); Red Blood Count 3.57 Miln/mm3 (4.00-5.20); White Blood Count 4.0 Thou/mm3 (3.6-11.0)
[2025-01-23 06:57] LABS: Alanine Aminotransferase 11 U/L (10-49); Albumin, Serum 3.6 gm/dL (3.4-4.8); Albumin/Globulin Ratio 1.4 (1.2-2.2); Alkaline Phosphatase 149 U/L (46-116); Anion Gap 8 (7-16); Aspartate Amino Transferase 23 U/L (0-34); BUN/Creatinine Ratio 18 Ratio (12-20); Bilirubin,Total 0.3 mg/dL (0.3-1.2); Blood Urea Nitrogen 21 mg/dL (9-23); Calcium 8.9 mg/dL (8.3-10.6); Calcium (Corrected) 9.2 mg/dL (8.5-10.1); Carbon Dioxide 30.8 mMol/L (20.0-31.0); Chloride 103 mMol/L (98-107); Creatinine (Component) 1.2 mg/dL (0.6-1.3); Estimated Creatinine Clearance 48.2 mL/min (>60); Globulin 2.5 gm/dL (2.3-3.5); Glucose 159 mg/dL (74-106); Magnesium 2.2 mg/dL (1.6-2.6); Osmolality,Calculated 289 (275-295); Phosphorous 3.5 mg/dL (2.4-5.1); Potassium 4.2 mMol/L (3.4-5.1); Sodium 142 mMol/L (136-145); Total Protein 6.1 gm/dL (5.7-8.2); eGFR 50 See Note
[2025-01-23] MEDS: cefTRIAXone/D5w 1gm IV premix 1 GM/50 ML BAG IV (08:49)
[2025-01-23] MEDS: INSULIN LISPRO (AdmeLOG) 1 UNIT/0.01 ML UNIT SC ×4 (08:49→21:40)
[2025-01-23] MEDS: PRIMIDONE 50 MG TABLET 250 MG PO (08:51)
[2025-01-23] MEDS: FERROUS SULF 325 MG TABLET PO (08:53)
[2025-01-23] MEDS: HEPARIN SOD INJ 5000 UNIT/ML VIAL SC ×2 (08:53→21:27)
[2025-01-23] MEDS: PREGABALIN 75 MG CAPSULE 150 MG PO ×2 (08:53→21:22)
[2025-01-23 09:00] LABS: Peritoneal Fluid Mononuclear 68.3 %; Peritoneal Fluid Polynuclear 31.7 %; Peritoneal Fluid WBC 202 /cmm
[2025-01-23 09:01] LABS: RBC,Peritoneal Fluid 1000.000 /cmm
[2025-01-23 09:02] LABS: Peritoneal Fluid Appearance Clear; Peritoneal Fluid Color Colorless
[2025-01-23 09:18] LABS: Albumin, Peritoneal Fluid 2.2 gm/dL; Amylase,Peritoneal Fluid 29 IU/L; Glucose,Peritoneal Fluid 137 mg/dL; LDH,Peritoneal Fluid 108 IU/L; Protein Total,Peritoneal Fluid 4 g/dL
[2025-01-23] MEDS: SPIRONOLACTONE 25 MG TABLET PO ×2 (09:26→21:23)
[2025-01-23] MEDS: LACTULOSE SYRUP 20 GM/30 ML UDC PO ×2 (12:33→22:49)
[2025-01-23] MEDS: ALBUMIN HUMAN 25% IVPB 25 GM/100 ML BTL IV (12:34)
--- NOTE | 2025-01-23 14:27 | ESPR_ITS ---
Documentation for date of: 01/23/25 Subjective Subjective Interval history: Patient examined at bedside today. No acute overnight events. Patient is having ongoing abdominal pain since paracentesis. Patient rates the pain 8 out of 10, constant in nature, feel feeling distended, laying down makes the pain better, standing up makes the pain worse. No other complaints at this time. Exam Vital Signs Temp Pulse Resp BP Pulse Ox O2 Del Method O2 Flow Rate 97.3 F 73 18 105/48 L 94 L Room Air 5 01/23/25 12:00 01/23/25 13:01/23/25 12:01/23/25 13:01/23/25 12:00 01/23/25 12:00 01/22/25 11:03 Narrative Exam GENERAL Normal appearing adult female, NAD. HEENT NCAT. GEOVANNI. Oral mucosa is moist. Patent Nares NECK Supple, nontender, no JVD. CHEST RRR, no m/g/r CTAB, no w/r/r, symmetrical expansion. ABDOMEN Soft, mildly distended, mildly tender throughout. No guarding/rebound tenderness/masses. Bowel sounds presents EXTREMITIES No edema/cyanosis. Improved alondra LE edema extending above the knee. SKIN Warm and dry, no jaundice/rashes. Slightly pale. NEUROMUSCULAR Moves all 4 extremities well, with full ROM and good CSM. No focal neurologic deficits. PSYCHIATRY Normal mood and affect, cooperative, no SI or HI or hallucinations. Objective Labs 01/24/25 05:30 01/24/25 05:30 Labs: Laboratory Results - last 24 hr 01/21/25 01/23/25 12:31 05:35 WBC 4.0 RBC 3.57 L Hgb 8.9 L Hct 28.2 L MCV 79 L MCH 24.9 L MCHC 31.6 RDW Std Deviation 43.7 Plt Count 149 Neut % (Auto) 46 Lymph % (Auto) 35 [place] % (Auto) 11 Eos % (Auto) 6 Baso % (Auto) 1 Neut # (Auto) 1.8 Lymph # (Auto) 1.4 [place] # (Auto) 0.4 Eos # (Auto) 0.3 Baso # (Auto) 0.1 Immature Gran # (Auto) 0.01 H Absolute Nucleated RBC 0.00 Immature Gran % 0 Nucleated RBC % 0 Sodium 142 Potassium 4.2 Chloride 103 Carbon Dioxide 30.8 Anion Gap 8 BUN 21 Creatinine 1.2 Estim Creat Clear Calc 48.2 L eGFR 50 L BUN/Creatinine Ratio 18 Glucose 159 H Calculated Osmolality 289 Calcium 8.9 Corrected Calcium 9.2 Phosphorus 3.5 Magnesium 2.2 Total Bilirubin 0.3 AST 23 ALT 11 Alkaline Phosphatase 149 H Total Protein 6.1 Albumin 3.6 Globulin 2.5 Albumin/Globulin Ratio 1.4 Peritoneal Color Colorless Peritoneal Appearance Clear Peritoneal WBC 202 Peritoneal RBC 1000.000 Periton Polynucl WBCs 31.7 Periton Mononucl WBCs 68.3 Peritoneal Tot Protein 4 Peritoneal Albumin 2.2 Peritoneal LDH 108 Peritoneal Glucose 137 Peritoneal Amylase 29 Quality Measures Quality Measures none Advance care planning discussed with:: patient Assessment & Plan Assessment Current Active Medications: Generic Name Dose Route Start Last Admin Trade Name Freq PRN Reason Stop Dose Admin Acetaminophen 650 mg 01/20/25 16:47 Acetaminophen 325 Mg Tablet PO 02/19/25 16:46 Q6H PRN PAIN SCALE 1-3 (mild Acetaminophen 650 mg 01/20/25 16:47 Acetaminophen 325 Mg Tablet PO 02/19/25 16:46 Q6H PRN Fever >100.4 Hydrocodone Bitart/Acetaminophen 1 tab 01/20/25 16:47 01/23/25 09:37 Hydrocodone/Apap 10/325 Tab PO 01/25/25 16:46 1 tab Q4HR PRN Administration PAIN SCALE 7-10 (Severe Albuterol/Ipratropium 3 ml 01/20/25 18:38 Albuterol/Ipratropium (Duoneb) Rt Lisset 3 Ml Nebu INH 02/19/25 18:37 Q6HRRT PRN Wheezing Dextrose 25 ml 01/20/25 18:39 Dextrose 50%-Water Inj 50 Ml Syringe IV 02/19/25 18:38 Q15MIN PRN BG 50-70 responsive npo pt Dextrose 50 ml 01/20/25 18:39 Dextrose 50%-Water Inj 50 Ml Syringe IV 02/19/25 18:38 Q15MIN PRN BG <50 OR BG <70 & pt unresponsive Ferrous Sulfate 325 mg 01/21/25 11:30 01/23/25 08:53 Ferrous Sulf 325 Mg Tablet PO 02/20/25 11:29 325 mg QOD REYNA Administration Furosemide 20 mg 01/22/25 18:00 01/23/25 06:18 Furosemide Inj 10 Mg/Ml Vial 2 Ml IVP 02/20/25 17:59 20 mg BIDD REYNA Administration Glucagon 1 mg 01/20/25 18:39 Glucagon Inj 1 Mg Vial IM Q15MIN PRN BG <70, and no IV access Heparin Sodium (Porcine) 5,000 unit 01/20/25 21:00 01/23/25 08:53 Heparin Sod Inj 5000 Unit/Ml Vial SC 02/03/25 20:59 5,000 unit BID REYNA Administration Ceftriaxone Sodium/Dextrose 1 gm in 50 mls @ 100 mls/hr 01/20/25 17:00 01/23/25 08:49 Rocephin/D5w 1gm Iv Premix IV 01/27/25 16:59 100 mls/hr QDAY REYNA Administration Albumin Human 12.5 gm in 250 mls @ 100 mls/hr 01/22/25 08:53 01/22/25 12:58 Albuminar-5 Ivpb IV 01/26/25 08:52 100 mls/hr QDAY REYNA Administration Albumin Human 25 gm in 100 mls @ 100 mls/hr 01/22/25 11:30 01/23/25 12:34 Albuminar-25 Ivpb IV 01/25/25 11:29 100 mls/hr QDAY@1130 REYNA Administration Insulin Human Lispro 0 unit 01/20/25 21:00 01/23/25 12:33 Insulin Lispro (Admelog) 1 Unit/0.01 Ml Unit SC 02/19/25 20:59 3 unit ACHS REYNA Administration Protocol Levothyroxine Sodium 112 mcg 01/21/25 06:00 01/23/25 06:18 Levothyroxine Sodium 112 Mcg Tablet PO 02/20/25 05:59 112 mcg ACBR REYNA Administration Lidocaine 1 patch 01/21/25 10:22 Lidocaine 5% 1 Patch TOP 02/20/25 10:21 UD PRN Back pain Loratadine 10 mg 01/21/25 09:00 01/23/25 08:53 Loratadine 10 Mg Tablet PO 02/20/25 08:59 10 mg QDAY REYNA Administration Metoprolol Succinate 50 mg 01/21/25 09:00 Metoprolol Succinate Xl 25 Mg Tabcr PO 02/20/25 08:59 QDAY REYNA Midodrine 10 mg 01/22/25 09:00 01/23/25 13:25 Midodrine 5 Mg Tablet PO 02/21/25 08:59 10 mg TID REYNA Administration Ondansetron HCl 4 mg 01/20/25 16:47 01/22/25 21:02 Ondansetron Inj 2 Mg/Ml Inj 2 Ml IVP 02/19/25 16:46 4 mg Q6H PRN Administration NAUSEA OR VOMITING Protocol Oxycodone/Acetaminophen 1 tab 01/20/25 16:47 01/22/25 20:58 Oxycodone/Apap 5/325 Tablet PO 01/25/25 16:46 1 tab Q6H PRN Administration PAIN SCALE 4-6 (Moderate Pantoprazole Sodium 40 mg 01/21/25 09:00 01/23/25 08:56 Pantoprazole Inj 40 Mg Vial IVP 02/20/25 08:59 40 mg BID REYNA Administration Pregabalin 150 mg 01/20/25 21:00 01/23/25 08:53 Pregabalin 75 Mg Capsule PO 02/19/25 20:59 150 mg BID REYNA Administration Primidone 250 mg 01/21/25 10:30 01/23/25 08:51 Primidone 50 Mg Tablet PO 01/26/25 10:29 250 mg QDAY REYNA Administration Primidone 50 mg 01/21/25 21:00 01/22/25 21:00 Primidone 50 Mg Tablet PO 01/26/25 20:59 50 mg HS REYNA Administration Spironolactone 25 mg 01/21/25 09:00 01/23/25 09:26 Spironolactone 25 Mg Tablet PO 02/20/25 08:59 25 mg BID REYNA Administration Plan Assessment: 64 year-old female with PMHx of alcoholic liver cirrhosis, COPD on home O2, hypothyroidism, asthma, HTN, T2DM and anxiety who presented to the ED with worsening ascites and abdominal discomfort. Admitted under observation for therapeutic/diagnostic paracentesis. Significant ascites (resolving) Alcoholic liver cirrhosis Significant alcohol use history, cirrhosis diagnosed in 08/2023. Has been on SPIRONOLACTONE, presenting with 1 month of worsening abdominal ascites. Abdominal CT showed cirrhosis, significant ascites, prominent splenomegaly, anasarca, esophageal and perigastric varices, no bowel obstruction. Ultrasound gallbladder showed distended gallbladder, negative for cholelithiasis, mildly thickened gallbladder wall likely from ascites. Anasarca on exam, with 2+ bilateral extremity edema extending above the knee. MELD score 9 equates to 6% mortality in 3 months. Child-Wilhelm score 7, Class B, indication for transplant evaluation. Paracentesis removed 8.4 L fluids, ALBUMIN was given pre and post para. ? Albumin 12.5 g IV daily ? LASIX 20 BID for lower extremity edema. Will transition to 20 mg p.o. daily at discharge. ? Continue SPIRONOLACTONE 25 mg BID ? Fluid restriction ? Sodium restriction of 2 g/day ? Patient may require abdominal taps weekly/monthly/yearly going forward ? Follow-up paracentesis fluid analysis Microcytic anemia (stable) Grade 1 esophageal varices Mild thrombocytopenia (resolved) Hgb 8.9, baseline 11.4. Likely iron deficiency versus cirrhosis. CT showed esophageal and perigastric varices. Reports chronic, recurrent hemorrhoidal bleed, but denies dark stool or upper GI bleed. Had an EGD last year and was abnormal. She is on a 5-year colonoscopy scheduled for colonic polyps, last colonoscopy 5 years ago. B12 and folate WNL. Iron stores are low. EGD showed grade 1 lower third esophageal varices, moderate patchy hemorrhagic characteristic of the gastric antrum. GI recommended outpatient colonoscopy. Hemoglobin stable. ? Transfuse if Hgb less than 8 ? Will need PROPRANOLOL for variceal prophylaxis, if BP can tolerate ? Continue daily oral iron supplements ? Continue CEFTRIAXONE for SBP prophylaxis (01/21 to present) HTN Hypothyroidism Asymptomatic sinus bradycardia Currently BP soft, normocardic. EKG shows sinus bradycardia, likely cirrhosis related on oral dysfunction versus BETA-BLOCKERS. ? Continue home LEVOTHYROXINE 112 mcg AC BR ? Consider resume home METOPROLOL when able ? Continue MIDODRINE 10 mg TID COPD, asthma Chronic respiratory failure, on home 2 L O2 No signs of asthma or COPD exacerbation ? DuoNebs q.6h. PRN ? Will discharge on TRELEGY T2DM A1c 7.7 from 08/2024. ? INSULIN sliding scale ? Accu-Cheks Elevated lipase Lipase 74, no nausea or vomiting, no epigastric pain subjectively on exam. No radiographic findings of acute pancreatitis. ? Continue to monitor Mild DONNA Likely hepatorenal. CR 1.2, baseline 0.9. GFR 50. BUN 19. UA negative for UTI. CR slightly worse at 1.3 after diuresis, BUN 13 and downtrending. ? Decrease diuresis, gave 500 cc NS bolus, gave ALBUMIN ? Renally dose meds, avoid overdiuresis and NEPHROTOXINS ? Daily CMP Electrolyte abnormalities ? Daily labs, replete as needed Anxiety ? Continue home LYRICA Health maintenance Diet: Renal diet GI prophylaxis: PROTONIX DVT prophylaxis: SCDs Antibiotics: CEFTRIAXONE CODE STATUS: Full code Disposition: Admitted under observation for paracentesis Case discussed with my attending Dr. Digna Kidd MD PGY-1 Attending Provider Attestation/Addendum I have examined the patient, reviewed labs and imaging findings, discussed the case with the resident(s), and reviewed entered orders. I agree with the plan of care as outlined in this note, with these additional summaries/recommendations: Patient seen at bedside. No acute overnight events. Patient appears at baseline mental status. She endorses severe constipation and denies having a bowel movement. Patient continues to have soft blood pressure but currently denying lightheadedness and dizziness. Reports improvement in generalized swelling after starting IV diuresis. Patient went for diagnostic and therapeutic paracentesis 01/21/25. No previous history of paracentesis. Patient had 8400 cc of peritoneal fluid removed. Continue replacing albumin. Patient has underlying alcoholic cirrhosis and is yet to establish care with gastroenterology or speech therapist. Gastroenterology was consulted on admission and s/p EGD which revealed grade 1 esophageal varcies. Continue low salt diet. Patient will need outpatient follow-up for hepatitis B and A vaccines. Continue home levothyroxine for hypothyroidism. Continue insulin sliding scale for diabetes mellitus type 2. Continue home antihypertensives as tolerated. Patient updated on the plan and in agreement. All questions answered to satisfaction. Please see residents note for additional details and management. Dr. Digna MD
[2025-01-23] MEDS: ONDANSETRON INJ 2 MG/ML INJ 2 ML 4 MG IVP (15:31)
--- NOTE | 2025-01-23 18:50 | PD.IMPROG ---
Documentation for date of: 01/23/25 Subjective Subjective Interval history: Patient evaluated Downward trending hemoglobin hematocrit 8.9 and 28.2 upper endoscopy showed 1 esophageal varices hypertensive portal gastropathy Exam Vital Signs Temp Pulse Resp BP Pulse Ox O2 Del Method O2 Flow Rate 97.3 F 76 18 118/50 L 94 L Room Air 5 01/23/25 16:00 01/23/25 17:29 01/23/25 16:00 01/23/25 17:29 01/23/25 16:00 01/23/25 16:00 01/22/25 11:03 Objective Labs 01/23/25 05:35 01/23/25 05:35 Labs: Laboratory Results - last 24 hr 01/21/25 01/23/25 12:31 05:35 WBC 4.0 RBC 3.57 L Hgb 8.9 L Hct 28.2 L MCV 79 L MCH 24.9 L MCHC 31.6 RDW Std Deviation 43.7 Plt Count 149 Neut % (Auto) 46 Lymph % (Auto) 35 [place] % (Auto) 11 Eos % (Auto) 6 Baso % (Auto) 1 Neut # (Auto) 1.8 Lymph # (Auto) 1.4 [place] # (Auto) 0.4 Eos # (Auto) 0.3 Baso # (Auto) 0.1 Immature Gran # (Auto) 0.01 H Absolute Nucleated RBC 0.00 Immature Gran % 0 Nucleated RBC % 0 Sodium 142 Potassium 4.2 Chloride 103 Carbon Dioxide 30.8 Anion Gap 8 BUN 21 Creatinine 1.2 Estim Creat Clear Calc 48.2 L eGFR 50 L BUN/Creatinine Ratio 18 Glucose 159 H Calculated Osmolality 289 Calcium 8.9 Corrected Calcium 9.2 Phosphorus 3.5 Magnesium 2.2 Total Bilirubin 0.3 AST 23 ALT 11 Alkaline Phosphatase 149 H Total Protein 6.1 Albumin 3.6 Globulin 2.5 Albumin/Globulin Ratio 1.4 Peritoneal Color Colorless Peritoneal Appearance Clear Peritoneal WBC 202 Peritoneal RBC 1000.000 Periton Polynucl WBCs 31.7 Periton Mononucl WBCs 68.3 Peritoneal Tot Protein 4 Peritoneal Albumin 2.2 Peritoneal LDH 108 Peritoneal Glucose 137 Peritoneal Amylase 29 Impressions Impression: 1+ esophageal varices Hypertensive portal gastropathy Continue present treatment Assessment & Plan A&P Narrative # Decompensated alcoholic liver disease with advanced portal hypertension esophageal varices and intractable ascites Plan Agree with the IV Lasix Agree with IV albumin Add spironolactone 25 mg p.o. twice daily Scheduled for therapeutic paracentesis Monitor renal function closely Consent obtained for fiberoptic esophagogastroduodenoscopy with possible biopsy possible therapeutic intervention for prophylactic band ligation of the esophageal varices Agree with IV ceftriaxone for the possibility of subacute bacterial peritonitis Will follow the patient Other medical problems include COPD on home oxygen 2 L nasal cannula Essential hypertension Hypothyroidism Hyperlipidemia Thank you very much for the opportunity to participate in care of this patient Time Spent With Patient Time: Total time spent is greater than 50% in coordination of care (as documented) at patient's floor/unit and/or counseling patient:
[2025-01-23] MEDS: PRIMIDONE 50 MG TABLET PO (21:24)
--- NOTE | 2025-01-23 21:53 | XR_ITS ---
Examination: Abdomen AP single view Technique: AP portable supine abdomen, single view Exam date and time: January 24, 2025 0117 hours INDICATIONS: Abdominal pain and distention this reading. FINDINGS: Large amount of stool throughout the entire colon especially rectosigmoid There are a few air distended small bowel loops No free air Prominent osteopenia IMPRESSION: Large amounts of stool throughout the entire colon
--- NOTE | 2025-01-23 21:57 | PD.RESEVENT ---
Documentation for date of: 01/23/25 Event Note Event Note: Rapid Response Room: [facility] Time: 9:50 PM Reason for Call: fever and SpO2 of 85% on room air (triggering sepsis alert) Assessment: Patient was assessed and airway and breathing were found to be intact. Vitals were Temp 102.8 HR 92 RR 18 SpO2 85% on room air. Our suspicion is that patient is having fevers 2/2 uncontrolled infection (intraabdominal vs. COPD exacerbation). Will continue monitoring patient for any acute changes. New orders: 1. Started IV azithromycin 500 mg qD for COPD since symptoms and O2 requirements 2. Started IV Dilaudid 1 mg q6H prn 3. Started lactulose 20 mg TID 4. Ordered a KUB 5. Ordered a lactic acid test 6. Ordered a blood culture considering new fever in the last 24 hours 7. Changed patient to 3L on nasal cannula for improved oxygenation Patient was discussed with the attending, Dr. Samuel , and senior resident Dr. Roberto , PGY-2 . -Nagi Banegas, DO PGY-1 Internal Medicine GME
[2025-01-23] MEDS: ACETAMINOPHEN 325 MG TABLET 650 MG PO (22:05)
[2025-01-23 22:32] LABS: Lactate (Lactic Acid) 1.8 mMol/L (0.4-2.0)
[2025-01-23] MEDS: AZITHROMYCIN INJ 500 MG in SODIUM CHLORIDE 0.9% 250 ML 250 ML 250 MG IV (22:48)
[2025-01-23] MEDS: HYDROmorphone INJ 2 MG/ML VIAL 1 MG IVP (22:49)
[2025-01-24] VITALS (22 sets, daily range): BP systolic 70–132; BP diastolic 38–83; PULSE 88–124; RESP 15–20; TEMP 36.9–39.3; O2SAT 90–99
--- NOTE | 2025-01-24 00:22 | PC.NURSE ---
T=102.7- Cooling measures applied.
--- NOTE | 2025-01-24 00:41 | PC.NURSE ---
84% O2 sat on 1L/min/nc- Increased to 3L/min/nc.
[2025-01-24] MEDS: SODIUM CHLORIDE 0.9% 250 ML 250 ML 999 ML IV ×4 (00:53→23:51)
[2025-01-24] MEDS: ZOLPIDEM 5 MG TABLET PO (01:24)
[2025-01-24] MEDS: LACTULOSE SYRUP 20 GM/30 ML UDC PO ×3 (05:37→22:25)
[2025-01-24] MEDS: MIDODRINE 5 MG TABLET 10 MG PO ×2 (05:37→14:08)
[2025-01-24] MEDS: FUROSEMIDE INJ 10 MG/ML VIAL 2 ML 20 MG IVP (05:38)
[2025-01-24] MEDS: LEVOTHYROXINE SODIUM 112 MCG TABLET PO (05:38)
[2025-01-24 06:30] LABS: Basophils # (Auto) 0.1 Thou/mm3 (0.0-0.2); Basophils % (Auto) 1 % (0-2.5); Eosinophils # (Auto) 0.2 Thou/mm3 (0.0-0.5); Eosinophils % (Auto) 3 % (0-10); Hematocrit 29.5 % (36.0-46.0); Hemoglobin 9.3 g/dL (12.0-16.0); Immature Granulocytes Auto 0.02 Thou/mm3 (0.00-0.00); Lymphocytes # (Auto) 1.8 Thou/mm3 (1.0-4.8); Lymphocytes % (Auto) 27 % (10-50); Mean Corpuscular HGB Conc 31.5 g/dl (31.0-37.0); Mean Corpuscular Hemoglobin 24.7 pg (25.0-35.0); Mean Corpuscular Volume 79 fL (80-100); Monocytes # (Auto) 0.7 Thou/mm3 (0.0-0.8); Monocytes % (Auto) 10 % (0-12); Neutrophils # (Auto) 4.1 Thou/mm3 (1.8-7.7); Neutrophils % (Auto) 59 % (37-80); Nucleated Red Blood Cell # 0.00 Thou/mm3 (0.00-0.00); Nucleated Red Blood Cell % 0 /100 WBC (0); Platelet Count 114 Thou/mm3 (140-440); RDW Standard Deviation 43.6 fL (36.4-46.3); Red Blood Count 3.76 Miln/mm3 (4.00-5.20); White Blood Count 6.9 Thou/mm3 (3.6-11.0)
[2025-01-24 06:44] LABS: Alanine Aminotransferase 15 U/L (10-49); Albumin, Serum 3.8 gm/dL (3.4-4.8); Albumin/Globulin Ratio 1.5 (1.2-2.2); Alkaline Phosphatase 149 U/L (46-116); Anion Gap 10 (7-16); Aspartate Amino Transferase 36 U/L (0-34); BUN/Creatinine Ratio 10 Ratio (12-20); Bilirubin,Total 0.6 mg/dL (0.3-1.2); Blood Urea Nitrogen 22 mg/dL (9-23); Calcium 9.0 mg/dL (8.3-10.6); Calcium (Corrected) 9.2 mg/dL (8.5-10.1); Carbon Dioxide 29.1 mMol/L (20.0-31.0); Chloride 100 mMol/L (98-107); Creatinine (Component) 2.1 mg/dL (0.6-1.3); Estimated Creatinine Clearance 27.5 mL/min (>60); Globulin 2.6 gm/dL (2.3-3.5); Glucose 135 mg/dL (74-106); Magnesium 1.9 mg/dL (1.6-2.6); Osmolality,Calculated 282 (275-295); Phosphorous 3.9 mg/dL (2.4-5.1); Potassium 5.2 mMol/L (3.4-5.1); Sodium 139 mMol/L (136-145); Total Protein 6.4 gm/dL (5.7-8.2); eGFR 26 See Note
--- NOTE | 2025-01-24 07:21 | XR_ITS ---
Examination: AP chest single view Technique: AP portable upright chest single view Date and time: January 24, 2025, 0829 hrs. Indications: Fever shortness of breath today Comparison: January 22, 2025 Findings: Mild opacity left base retrocardiac Right lung clear. Normal heart size Impression: Suspicious for early pneumonia left base
[2025-01-24] MEDS: SOD POLYSTYRENE SULFON SUSP 15 GM/60 ML BTL 30 GM PO (07:42)
[2025-01-24] MEDS: HYDROmorphone INJ 2 MG/ML VIAL 1 MG IVP ×2 (07:52→19:46)
[2025-01-24] MEDS: INSULIN LISPRO (AdmeLOG) 1 UNIT/0.01 ML UNIT SC ×2 (08:36→11:52)
[2025-01-24] MEDS: SPIRONOLACTONE 25 MG TABLET PO (08:37)
[2025-01-24] MEDS: PREGABALIN 75 MG CAPSULE 150 MG PO ×2 (08:37→21:49)
[2025-01-24] MEDS: PRIMIDONE 50 MG TABLET 250 MG PO (08:38)
[2025-01-24] MEDS: ALBUMIN HUMAN 5% IVPB 12.5 GM/250 ML BTL IV (08:38)
[2025-01-24] MEDS: cefTRIAXone/D5w 1gm IV premix 1 GM/50 ML BAG IV (08:38)
--- NOTE | 2025-01-24 11:41 | PD.RESEVENT ---
Documentation for date of: 01/24/25 Event Note Event Note: A rapid response was called at approximately 11:50 PM for patient having altered mental status and being unresponsive to questions. Patient's vital signs included temperature 100.4, heart rate 112, respiratory rate 20, blood pressure 84/55, O2 saturations 93% on 3 L oxygen. Patient was alert and oriented x 3, somnolent, pupils equal and reactive to light, no focal neurologic findings, bilateral tremors of arms were present and pronounced. Patient is answering questions, but slowly. New orders: Obtain orthostatic vital vitals EEG Neurology consult Cardiology consult EKG Echo cardiogram D-dimer Troponin Repeat CMP Lactic acid level Giving bolus of lactated Ringer's 250 cc x1 Case discussed with my attending Dr. Digna Kidd MD PGY-1
--- NOTE | 2025-01-24 11:42 | ECHO_ITS ---
Transthoracic Echo Report Ht (in): 64 Wt (lb): 178 Exam Location: Echo Lab Status: Inpatient Pantry Chef: MattRosalinda morrison Indications: Procedure Performed: BP: 108 / 61 HR: 88 MEASUREMENTS (Male / Female) Normal Values M-MODE Aortic Root Diameter MM 2.3 cm LA Systolic Diameter MM 4.3 cm LA Ao Ratio MM 1.9 AV Cusp Separation MM 1.7 cm DOPPLER AV Peak Velocity 168.0 cm/s AV Peak Gradient 11.3 mmHg AV Mean Gradient 6.0 mmHg AV Velocity Time Integral 26.9 cm LVOT Peak Velocity 129.0 cm/s LVOT Peak Gradient 6.7 mmHg LVOT Velocity Time Integral 22.2 cm MV Peak Velocity 152.0 cm/s MV Peak Gradient 9.2 mmHg MV Mean Velocity 91.5 cm/s MV Mean Gradient 4.0 mmHg MV Area PHT 7.6 cm? Mitral E Point Velocity 68.9 cm/s Mitral A Point Velocity 139.0 cm/s Mitral E to A Ratio 0.5 LV E' Septal Velocity 7.5 cm/s Mitral E to LV E' Septal Ratio 9.2 PV Peak Velocity 163.0 cm/s PV Peak Gradient 10.6 mmHg FINDINGS Left Ventricle LV appears to be normal in size. Hyperdynamic LV. Estimated EF 65-70%. Grade I diastolic dysfunction. Right Ventricle The right ventricle is normal in size. The right ventricular systolic function is mildly decreased. Left Atrium The left atrium is normal by two-dimensional, color flow and Doppler imaging with no structural abnormalities, no thrombus formation present. Right Atrium The right atrium is normal by two-dimensional imaging, color flow and Doppler imaging with no structural abnormalities, no thrombus formation present. Atrial Septum The interatrial septum appears normal with no evidence of a shunt. Aorta The aorta is normal by two-dimensional, color flow and Doppler interrogation. Mitral Valve Mild mitral annular calcification. Trace MR. Aortic Valve The aortic valve is trileaflet and normal by two-dimensional, color flow and Doppler interrogation. There is no significant aortic valve regurgitation. Tricuspid Valve The tricuspid valve is normal by two-dimensional, color flow and Doppler interrogation. There is trace tricuspid valve regurgitation. Pulmonic Valve The pulmonic valve is not well visualized. There is no significant pulmonic valve regurgitation. Vessels Inferior vena cava not well visualized. Pericardium The pericardium is normal by two-dimensional imaging. There is no significant pericardial effusion. CONCLUSIONS Indication: Bubble study Negative bubble study LV appears to be normal in size. Hyperdynamic LV. Estimated EF 65-70%. Grade I diastolic dysfunction. The RV is normal in size. The RV systolic function is mildly decreased. Mild MAC Trace MR and TR. IVC not well visualized. NORMAL PA PRESSURE, NO pulmonary hypetension. Jeaneth Lara (Electronically Signed) Final Date: 26 January 2025 16:54
--- NOTE | 2025-01-24 11:43 | EKG_ITS ---
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
[2025-01-24] MEDS: ACETAMINOPHEN 325 MG TABLET 650 MG PO ×2 (11:52→19:47)
--- NOTE | 2025-01-24 12:39 | XR_ITS ---
Examination: CT brain head without contrast. 2-D sagittal coronal reconstructions Date and time of exam:January 24, 2025, 1300 hrs. Indications: Stroke alert January 22, 2025, persistent confusion today CTDI: vol (mGy):46.8 DLP: (mGycm):964 Technique: Multiple CT axial sections of the brain have been obtained, 5 mm slice thickness. Contrast has not been administered. 2-D sagittal, coronal reconstructions have been obtained Low dose protocols were performed. One or more of the following dose reduction techniques were used; automated exposure control, adjustment of the mA and/or KV according to patient size, use of iterative reconstruction technique. Findings: No significant ventricular enlargement. Intra-axial or extra-axial hemorrhage density is not seen. No mass effect or midline shift Basal cisterns are not remarkable. Fourth ventricle is midline. Cranial vault intact. Impression: Negative for acute hemorrhage, mass effect or midline shift Consider brain MRI follow-up, stroke protocol
[2025-01-24 12:52] LABS: D-Dimer > 3820 ng/mL (<600)
[2025-01-24 12:54] LABS: INR 1.2 (0.9-1.3); Partial Thromboplastin Time 30.5 Seconds (22.0-36.0); Prothrombin Time 13.0 Seconds (9.0-12.2)
[2025-01-24 12:57] LABS: Troponin I < 0.002 ng/mL (0.0-0.045)
--- NOTE | 2025-01-24 12:57 | PD.RESPRO ---
Documentation for date of: 01/24/25 Subjective Subjective Interval history: Patient examined at bedtime. Patient had a rapid response last night for fever of 102.8 and SpO2 of 85% on room air. See event note for more details. Another rapid response was called at around 11:30 AM today for altered mental status and not answering questions. See event note for further detail. Patient is more tired drowsy, has shortness of breath, weakness on upper and lower limbs, no cough, bilateral arm tremors started since last night. Exam Vital Signs Temp Pulse Resp BP Pulse Ox O2 Del Method O2 Flow Rate 98.7 F 112 H 17 84/55 L 99 Nasal Cannula 3 01/24/25 12:00 01/24/25 12:00 01/24/25 12:00 01/24/25 12:00 01/24/25 12:00 01/24/25 11:42 01/24/25 12:00 Narrative Exam GENERAL Normal appearing adult female, NAD. HEENT NCAT. GEOVANNI. Oral mucosa is moist. Patent Nares NECK Supple, nontender, no JVD. CHEST RRR, no m/g/r, bilateral inspiratory crackles,no work of breathing, symmetrical expansion. ABDOMEN Soft, mildly distended, mildly tender throughout. No guarding/rebound tenderness/masses. Bowel sounds presents EXTREMITIES No edema/cyanosis. SKIN Warm and dry, no jaundice/rashes. Slightly pale. NEUROMUSCULAR bilateral tremors present of arms. Moves all 4 extremities slowly, with full ROM. No focal neurologic deficits. PSYCHIATRY Normal mood and affect, cooperative, no hallucinations. Objective Labs 01/24/25 05:30 01/24/25 15:24 Labs: Laboratory Results - last 24 hr 01/23/25 01/24/25 01/24/25 22:10 05:30 11:43 WBC 6.9 D RBC 3.76 L Hgb 9.3 L Hct 29.5 L MCV 79 L MCH 24.7 L MCHC 31.5 RDW Std Deviation 43.6 Plt Count 114 L D Neut % (Auto) 59 Lymph % (Auto) 27 Parke % (Auto) 10 Eos % (Auto) 3 Baso % (Auto) 1 Neut # (Auto) 4.1 Lymph # (Auto) 1.8 Parke # (Auto) 0.7 Eos # (Auto) 0.2 Baso # (Auto) 0.1 Immature Gran # (Auto) 0.02 H Absolute Nucleated RBC 0.00 Immature Gran % 0 Nucleated RBC % 0 PT 13.0 H INR 1.2 APTT 30.5 D-Dimer > 3820 H Sodium 139 Potassium 5.2 H D Chloride 100 Carbon Dioxide 29.1 Anion Gap 10 BUN 22 Creatinine 2.1 H D Estim Creat Clear Calc 27.5 L eGFR 26 L BUN/Creatinine Ratio 10 L Glucose 135 H Calculated Osmolality 282 Lactic Acid 1.8 Calcium 9.0 Corrected Calcium 9.2 Phosphorus 3.9 Magnesium 1.9 Total Bilirubin 0.6 AST 36 H ALT 15 Alkaline Phosphatase 149 H Total Protein 6.4 Albumin 3.8 Globulin 2.6 Albumin/Globulin Ratio 1.5 Quality Measures Quality Measures none Advance care planning discussed with:: patient Assessment & Plan Assessment Current Active Medications: Generic Name Dose Route Start Last Admin Trade Name Freq PRN Reason Stop Dose Admin Acetaminophen 650 mg 01/20/25 16:47 01/24/25 11:52 Acetaminophen 325 Mg Tablet PO 02/19/25 16:46 650 mg Q6H PRN Administration PAIN SCALE 1-3 (mild Acetaminophen 650 mg 01/20/25 16:47 01/23/25 22:05 Acetaminophen 325 Mg Tablet PO 02/19/25 16:46 650 mg Q6H PRN Administration Fever >100.4 Hydrocodone Bitart/Acetaminophen 1 tab 01/20/25 16:47 01/23/25 21:38 Hydrocodone/Apap 10/325 Tab PO 01/25/25 16:46 1 tab Q4HR PRN Administration PAIN SCALE 7-10 (Severe Albuterol/Ipratropium 3 ml 01/20/25 18:38 Albuterol/Ipratropium (Duoneb) Rt Lisset 3 Ml Nebu INH 02/19/25 18:37 Q6HRRT PRN Wheezing Dextrose 25 ml 01/20/25 18:39 Dextrose 50%-Water Inj 50 Ml Syringe IV 02/19/25 18:38 Q15MIN PRN BG 50-70 responsive npo pt Dextrose 50 ml 01/20/25 18:39 Dextrose 50%-Water Inj 50 Ml Syringe IV 02/19/25 18:38 Q15MIN PRN BG <50 OR BG <70 & pt unresponsive Ferrous Sulfate 325 mg 01/21/25 11:30 01/23/25 08:53 Ferrous Sulf 325 Mg Tablet PO 02/20/25 11:29 325 mg QOD REYNA Administration Furosemide 20 mg 01/22/25 18:00 01/24/25 05:38 Furosemide Inj 10 Mg/Ml Vial 2 Ml IVP 02/20/25 17:59 20 mg BIDD REYNA Administration Glucagon 1 mg 01/20/25 18:39 Glucagon Inj 1 Mg Vial IM Q15MIN PRN BG <70, and no IV access Heparin Sodium (Porcine) 5,000 unit 01/20/25 21:00 01/24/25 08:54 Heparin Sod Inj 5000 Unit/Ml Vial SC 02/03/25 20:59 Not Given BID REYNA Hydromorphone HCl 1 mg 01/24/25 00:10 01/24/25 07:52 Hydromorphone Inj 2 Mg/Ml Vial IVP 01/29/25 00:09 1 mg Q6H PRN Administration BREAKTHROUGH PAIN (SEVERE) Ceftriaxone Sodium/Dextrose 1 gm in 50 mls @ 100 mls/hr 01/20/25 17:00 01/24/25 08:38 Rocephin/D5w 1gm Iv Premix IV 01/27/25 16:59 100 mls/hr QDAY REYNA Administration Albumin Human 12.5 gm in 250 mls @ 100 mls/hr 01/22/25 08:53 01/24/25 08:38 Albuminar-5 Ivpb IV 01/26/25 08:52 100 mls/hr QDAY REYNA Administration Albumin Human 25 gm in 100 mls @ 100 mls/hr 01/22/25 11:30 01/23/25 12:34 Albuminar-25 Ivpb IV 01/25/25 11:29 100 mls/hr QDAY@1130 REYNA Administration Azithromycin 500 mg/ Sodium 250 mls @ 250 mls/hr 01/23/25 21:56 01/23/25 22:48 Chloride IV 01/30/25 21:55 250 mls/hr DAILY@2100 REYNA Administration Insulin Human Lispro 0 unit 01/20/25 21:00 01/24/25 11:52 Insulin Lispro (Admelog) 1 Unit/0.01 Ml Unit SC 02/19/25 20:59 1 unit ACHS REYNA Administration Protocol Lactulose 10 gm 01/24/25 14:00 Lactulose Syrup 20 Gm/30 Ml Udc PO 02/23/25 13:59 TID REYNA Protocol Levothyroxine Sodium 112 mcg 01/21/25 06:00 01/24/25 05:38 Levothyroxine Sodium 112 Mcg Tablet PO 02/20/25 05:59 112 mcg ACBR REYNA Administration Lidocaine 1 patch 01/21/25 10:22 Lidocaine 5% 1 Patch TOP 02/20/25 10:21 UD PRN Back pain Loratadine 10 mg 01/21/25 09:00 01/24/25 08:38 Loratadine 10 Mg Tablet PO 02/20/25 08:59 10 mg QDAY REYNA Administration Metoprolol Succinate 50 mg 01/21/25 09:00 Metoprolol Succinate Xl 25 Mg Tabcr PO 02/20/25 08:59 QDAY REYNA Midodrine 10 mg 01/22/25 09:00 01/24/25 05:37 Midodrine 5 Mg Tablet PO 02/21/25 08:59 10 mg TID REYNA Administration Ondansetron HCl 4 mg 01/20/25 16:47 01/23/25 15:31 Ondansetron Inj 2 Mg/Ml Inj 2 Ml IVP 02/19/25 16:46 4 mg Q6H PRN Administration NAUSEA OR VOMITING Protocol Oxycodone/Acetaminophen 1 tab 01/20/25 16:47 01/22/25 20:58 Oxycodone/Apap 5/325 Tablet PO 01/25/25 16:46 1 tab Q6H PRN Administration PAIN SCALE 4-6 (Moderate Pantoprazole Sodium 40 mg 01/21/25 09:00 01/24/25 08:38 Pantoprazole Inj 40 Mg Vial IVP 02/20/25 08:59 40 mg BID REYNA Administration Pregabalin 150 mg 01/20/25 21:00 01/24/25 08:37 Pregabalin 75 Mg Capsule PO 02/19/25 20:59 150 mg BID REYNA Administration Primidone 250 mg 01/21/25 10:30 01/24/25 08:38 Primidone 50 Mg Tablet PO 01/26/25 10:29 250 mg QDAY REYNA Administration Primidone 50 mg 01/21/25 21:00 01/23/25 21:24 Primidone 50 Mg Tablet PO 01/26/25 20:59 50 mg HS REYNA Administration Spironolactone 25 mg 01/21/25 09:00 01/24/25 08:37 Spironolactone 25 Mg Tablet PO 02/20/25 08:59 25 mg BID REYNA Administration Plan Assessment: 64 year-old female with PMHx of alcoholic liver cirrhosis, COPD on home O2, hypothyroidism, asthma, HTN, T2DM and anxiety who presented to the ED with worsening ascites and abdominal discomfort. Admitted under observation for therapeutic/diagnostic paracentesis. #Acute encephalopathy?new onset #New onset fever, hypotension, low O2 saturations, tachycardia #?Presyncope #?Pulmonary embolism #?Seizures Patient had a rapid response last evening for T 102.8 and SpO2 of 85% on room air ? please see event note for further details Low suspicion of stroke as no focal neurological findings. Patient did have paracentesis which removed 8.4 L on 01/21/2025. Blood pressure had been soft since.Patient has been getting IV albumin. Blood pressure this morning was 84/55 and heart rate 112. Lactated ringer fluid bolus of 250 cc improved blood pressure. Another rapid response called today at approximately 11:30 AM for altered mental status and not answering questions ? please see event note Wells criteria for pulmonary embolism = 6 - suggesting moderate pulmonary embolism probability Patient has a bilateral tremor of the arms which is new in onset since last night, patient is known to have tremors of the hands. Patient has had no alcohol since last year KUB showed large stool in rectosigmoid, few air distended small bowel loop Chest x-ray was suspicious for early pneumonia left base but nothing confirmatory EKG showed sinus tachycardia, rate 120, QTc [address] head was negative for acute hemorrhage, mass effect or midline shift D-dimer >3820 Troponin negative ? Patient transferred to telemetry unit ? Orthostatic vitals ordered ? EEG ordered?to check if might have seizures ? Neurology consulted, see recs ? Echocardiogram ordered - if shows evidence of right heart strain then we could go ahead with CT pulmonary angiogram ? Cardiology consulted, see recs ? Repeat renal panel ordered ? if left kidney shows DONNA still we will proceed with a VQ scan, if DONNA resolved then we will proceed with CT pulmonary angiogram ? Stopped IV albumin ? Added pip-tazo 3.375 IV every 8 hours ? Increased midodrine to 15 mg 3 times daily ? Resumed escitalopram 20 mg daily home dose #Acute kidney injury new onset Creatinine 2.1, repeat 2.4, yesterday 1.2 Patient was hypotensive which could explain the DONNA Baseline Cr 0.9 ? Monitor renal panel ? Renally dose meds, avoid overdiuresis and NEPHROTOXINS #Hyperkalemia Potassium 5.2 ? Gave Kayexalate 30 g x 1 ? Repeating CMP this p.m. ? Follow-up on results Significant ascites (resolving) Alcoholic liver cirrhosis Significant alcohol use history, cirrhosis diagnosed in 08/2023. Has been on SPIRONOLACTONE, presenting with 1 month of worsening abdominal ascites. Abdominal CT showed cirrhosis, significant ascites, prominent splenomegaly, anasarca, esophageal and perigastric varices, no bowel obstruction. Ultrasound gallbladder showed distended gallbladder, negative for cholelithiasis, mildly thickened gallbladder wall likely from ascites. Anasarca on exam, with 2+ bilateral extremity edema extending above the knee. MELD score 9 equates to 6% mortality in 3 months. Child-Wilhelm score 7, Class B, indication for transplant evaluation. Paracentesis removed 8.4 L fluids, ALBUMIN was given pre and post para. ? Albumin 12.5 g IV daily ? LASIX 20 BID for lower extremity edema. Will transition to 20 mg p.o. daily at discharge. ? Continue SPIRONOLACTONE 25 mg BID ? Fluid restriction ? Sodium restriction of 2 g/day ? Patient may require abdominal taps weekly/monthly/yearly going forward ? Follow-up paracentesis fluid analysis Microcytic anemia (stable) Grade 1 esophageal varices Mild thrombocytopenia (resolved) Hgb 8.9, baseline 11.4. Likely iron deficiency versus cirrhosis. CT showed esophageal and perigastric varices. Reports chronic, recurrent hemorrhoidal bleed, but denies dark stool or upper GI bleed. Had an EGD last year and was abnormal. She is on a 5-year colonoscopy scheduled for colonic polyps, last colonoscopy 5 years ago. B12 and folate WNL. Iron stores are low. EGD showed grade 1 lower third esophageal varices, moderate patchy hemorrhagic characteristic of the gastric antrum. GI recommended outpatient colonoscopy. Hemoglobin stable. ? Transfuse if Hgb less than 8 ? Will need PROPRANOLOL for variceal prophylaxis, if BP can tolerate ? Continue daily oral iron supplements ? Continue CEFTRIAXONE for SBP prophylaxis (01/21 to present) HTN Hypothyroidism Asymptomatic sinus bradycardia Currently BP soft, normocardic. EKG shows sinus bradycardia, likely cirrhosis related on oral dysfunction versus BETA-BLOCKERS. ? Continue home LEVOTHYROXINE 112 mcg AC BR ? Consider resume home METOPROLOL when able ? Continue MIDODRINE 10 mg TID COPD, asthma Chronic respiratory failure, on home 2 L O2 No signs of asthma or COPD exacerbation ? DuoNebs q.6h. PRN ? Will discharge on TRELEGY T2DM A1c 7.7 from 08/2024. ? INSULIN sliding scale ? Accu-Cheks Elevated lipase Lipase 74, no nausea or vomiting, no epigastric pain subjectively on exam. No radiographic findings of acute pancreatitis. ? Continue to monitor Electrolyte abnormalities ? Daily labs, replete as needed Anxiety ? Continue home LYRICA Health maintenance Diet: Renal diet GI prophylaxis: PROTONIX DVT prophylaxis: SCDs Antibiotics: Zosyn CODE STATUS: Full code Disposition: Admitted under observation for paracentesis Case discussed with my attending Dr. Digna Kidd MD PGY-1 Attending Provider Attestation/Addendum I have examined the patient, reviewed labs and imaging findings, discussed the case with the resident(s), and reviewed entered orders. I agree with the plan of care as outlined in this note, with these additional summaries/recommendations: Patient seen at bedside. Patient had rapid response again today. She appears to develop intermittent encephalopathy. She does not have evidence of postictal state but does have bilateral upper extremity shaking during these episodes. She does have bilateral upper extremity tremor at baseline. Also possible patient is having presyncope/syncopal episodes. Consult in-house neurology, recommendations appreciated. We will order EEG. We will give low dose Ativan if needed although episodes are short and usually resolve before intervention. Patient also recently underwent paracentesis and has had relatively soft blood pressure requiring initiation of midodrine. Possible patient is having presyncope episodes although blood pressure currently stable. We will consult cardiology and order syncopal workup. Order echocardiogram. EKG reviewed and no arrhythmia noted. Keep patient hydrated. All home medicines reviewed and we will resume home Lexapro. Less likely medication withdrawal. Patient was also noted to develop fevers overnight and repeat cultures were taken. Chest x-ray was obtained which revealed left lower lobe infiltrate. Antibiotics broadened. Low suspicion for pulmonary embolism although D-dimer obtained which is significantly elevated. We are unable to obtain CTA at this time as patient has developed DONNA. We will discuss with IR if we are able to obtain VQ scan. Consult in-house nephrology for acute kidney injury. Avoid nephrotoxic agents and renally dose medications. Patient reports improvement in generalized swelling after starting IV diuresis. Patient went for diagnostic and therapeutic paracentesis 01/21/25. No previous history of paracentesis. Patient had 8400 cc of peritoneal fluid removed. Patient has underlying alcoholic cirrhosis and is yet to establish care with gastroenterology or manufacturing engineer assembly. Gastroenterology was consulted on admission and s/p EGD which revealed grade 1 esophageal varcies. Continue low salt diet. Patient will need outpatient follow-up for hepatitis B and A vaccines. Continue home levothyroxine for hypothyroidism. Continue insulin sliding scale for diabetes mellitus type 2. Hold home antihypertensives for now. Patient updated on the plan and in agreement. All questions answered to satisfaction. Please see residents note for additional details and management. Dr. Digna MD
[2025-01-24] MEDS: ALBUMIN HUMAN 25% IVPB 25 GM/100 ML BTL IV (14:00)
[2025-01-24] MEDS: IBUPROFEN TAB 400 MG TABLET PO (14:09)
--- NOTE | 2025-01-24 14:45 | ESCONSULT_ITS ---
<Statement entered by Erin Tomas MD - 01/24/25 18:21> I personally examined the patient during the consultation report all essential complaints PGY 2 Dr. Kennedy patient appears to have end-stage liver disease cirrhosis of the liver with large ascites with possible infection and temperature elevation rapid responses were called because of tachycardia hypotension started on midodrine blood pressure is borderline she is not having any symptoms does not have any systemic hypoperfusion there is mild tenderness though there is no rebound tenderness large ascites is present recommend continue aggressive antibiotic therapy keep monitoring albumin levels. Continue with diuretic low-dose as tolerated along with midodrine and GI recommendation. As for sinus tachycardia appears to be due to underlying infection process and possibly underlying issues rather than any arrhythmia hence do not need to give beta-shaheen to slow it unless the blood pressure is elevated. Reviewed the findings and agree with the treatment plan recommendation as documented by Dr. Kennedy PGY 2 patient's prognosis appears to be poor based on underlying end- stage liver disease and esophageal varices HPI Data of Consult Requesting Physician: Brandon Sawyer MD Admitting Provider: Brandon Sawyer MD Attending Provider: Brandon Sawyer MD Primary Care Provider: Hima Musa MD Consult Narrative History of present illness: Ms. Mario is a 64-year-old female with past medical history significant for decompensated liver cirrhosis (diagnosed in October 2024), COPD on home oxygen, asthma, hypothyroidism, hypertension, type 2 diabetes and anxiety presented to the ED on 01/20/25 complaining of worsening abdominal pain and distention. Cardiology is consulted due to tachycardia and hypotension. Patient's daughter is at bedside who states that in October patient was diagnosed with liver cirrhosis and since then have had worsening abdominal pain and distention. During this admission patient underwent paracentesis on 01/21/2025 and 8.4 L of fluid was successfully removed. And patient was given albumin. GI specialist was also consulted and patient underwent endoscopy on 01/21/2025, and findings were consistent with grade 1 varices in the lower third of the esophagus. Due to altered mental status telemetry neuro was consulted as concerns for stroke however patient's symptoms were likely secondary to toxic metabolic encephalopathy and less likely stroke or a TIA. On 01/23 patient had another rapid response for fever and hypoxia. Patient was started on IV antibiotics. However patient continues to have intermittent fevers throughout the day therefore IV antibiotics are broadened. Patient denies any cardiac symptoms including chest pain, palpitations, chest pressure or dizziness. Patient's shortness of breath is due to abdominal distention currently saturating on supplemental oxygen via nasal cannula. Per patient's daughter at bedside patient denies any known cardiac history. PMH: Decompensated liver cirrhosis, COPD, hypothyroidism, asthma, and hypertension, type 2 diabetes, anxiety PSH: Tubal ligation and bilateral carpal tunnel surgery SH: Smoked 1 pack of cigarettes daily for 50 years, currently in the process of quitting and have decreased to smoking about 1 to 3 cigarettes daily, patient has history of heavy alcohol abuse however has remained abstinence from alcohol for the past 3 months. Denies the use of any illicit drugs including meth or cocaine Home meds: Clonidine, metoprolol XL, spironolactone, levothyroxine, albuterol and Jardiance. cc:: cc: Brandon Sawyer MD Review of Systems Review of Systems Systems Reviewed: All systems reviewed, normal except as documented Exam Vital Signs Temp Pulse Resp BP Pulse Ox O2 Del Method O2 Flow Rate 101.7 F H 115 H 17 114/48 L 99 Nasal Cannula 3 01/24/25 14:09 01/24/25 14:08 01/24/25 12:00 01/24/25 14:08 01/24/25 12:00 01/24/25 11:42 01/24/25 12:00 Narrative Exam GENERAL: A&Ox2, chronically ill appearing, Awake, Not in acute distress NEURO: no focal neurological deficits HEENT: Atraumatic, Normocephalic. mucous membranes moist. Eyes open, symmetrical, & clear HEART: Normal Heart Sounds LUNGS: Clear to auscultation with no wheezing or crackles. ABDOMEN: distended abdomen, tender to palpation EXTREMITIES: 1+ pitting edema noted in LE, no tenderness, able to move all 4 extremities, pedal pulses palpated Results Labs 01/24/25 05:30 01/24/25 05:30 Labs: Short CBC 01/24/25 Range/Units 05:30 WBC 6.9 D (3.6-11.0) Thou/mm3 Hgb 9.3 L (12.0-16.0) g/dL Hct 29.5 L (36.0-46.0) % Plt Count 114 L D (140-440) Thou/mm3 BMP 01/24/25 05:30 Sodium 139 Potassium 5.2 H D Chloride 100 Carbon Dioxide 29.1 BUN 22 Creatinine 2.1 H D Glucose 135 H Calcium 9.0 Cardiac Enzymes 01/24/25 Range/Units 11:43 Troponin I < 0.002 (0.0-0.045) ng/mL Liver Function 01/24/25 Range/Units 05:30 Total Bilirubin 0.6 (0.3-1.2) mg/dL AST 36 H (0-34) U/L ALT 15 (10-49) U/L Alkaline Phosphatase 149 H (46-116) U/L Albumin 3.8 (3.4-4.8) gm/dL Quality Measures Quality Measures none Advance care planning discussed with:: child Medications Home Medications and Allergies Home Medications ?Medication ?Instructions ?Recorded ?Confirmed ?Type pregabalin 150 mg capsule (Lyrica) 150 mg PO BID #0 ca ps 04/13/16 01/20/25 History albuterol sulfate 90 mcg/actuation 2 puff inhalation Q 4H PRN 04/14/19 01/20/25 History aerosol inhaler (Ventolin HFA) Shortness Of Breath latanoprost 0.005 % eye drops 1 drp ophthalmic (eye) Q PM 04/14/19 01/20/25 History primidone 250 mg tablet 250 mg PO QDAY 04/14/1904/08 History tramadol 50 mg tablet 50 mg PO BID 04/14/19 History clonidine HCl 0.1 mg tablet 1 tab PO BID 01/18/2204/08 History Held on 01/20/25. Instructions: Doctor's Order metformin 1,000 mg tablet 1,000 mg PO BID 01/18/2204/08 History Held on 01/20/25. Instructions: awaiting insurance autho for patient to continue to take med metoprolol succinate 50 mg 1.5 tab PO QDAY 01/18/22 History tablet,extended release 24 hr Held on 01/23/25. Instructions: resume with PCP escitalopram oxalate 20 mg tablet 20 mg PO QDAY 01/20/25 History (Lexapro) levothyroxine 112 mcg capsule 112 mcg PO QDAY 05/09/23 01/20/25 History liothyronine 5 mcg tablet 20 mcg PO QDAY 05/09/2304/08 History zolpidem 5 mg tablet 5 mg PO QHSPRN 05/09/2304/08 History empagliflozin 10 mg tablet 1 mg PO DAILY 08/24/2304/08 History (Jardiance) fluticasone propionate 110 1 inh inhalation BID 01/20/25 History mcg/actuation HFA aerosol inhaler metoclopramide HCl 10 mg tablet 1 mg PO TID 08/24/23 0 01/20/25 History primidone 50 mg tablet 1 mg PO DAILY 08/24/2301/20 History semaglutide 1 mg/dose (4 mg/3 mL) 1 mg subcut QWEEK 01/20/25 History subcutaneous pen injector (Ozempic) Held on 01/20/25. Instructions: Doctor's Order tiotropium 2.5 mcg-olodaterol 2.5 2 puff inhalation DA ZAYNAB 08/24/23 01/20/25 History mcg/actuation mist for inhalation (Stiolto Respimat) aspirin 81 mg capsule 81 mg PO QDAY 01/20/2501/20 History beclomethasone dipropionate 40 2 inh inhalation BID 01/20/25 History mcg/actuation HFA breath activated aerosol (Qvar RediHaler) insulin lispro 100 unit/mL 1 sliding scale dose subcut PRN 01/20/25 01/20/25 History subcutaneous pen lubiprostone 24 mcg capsule 24 mcg PO PRN PRN constipa tion 01/20/25 01/20/25 History omeprazole 20 mg capsule,delayed 20 mg PO BID 01/20/25 01/20/25 History release spironolactone 50 mg tablet 50 mg PO BID 01/20/2504/08 History Allergies Allergy/AdvReac Type Severity Reaction Status Date / Time No Known Allergies Allergy Verified 01/20/25 12:17 Visit Medications Acetaminophen (Acetaminophen 325 Mg Tablet) 650 mg PO Q6H PRN PRN Reason: PAIN SCALE 1-3 (mild Stop: 02/19/25 16:46 Last Admin: 01/24/25 11:52 Dose: 650 mg Acetaminophen (Acetaminophen 325 Mg Tablet) 650 mg PO Q6H PRN PRN Reason: Fever >100.4 Stop: 02/19/25 16:46 Last Admin: 01/23/25 22:05 Dose: 650 mg Hydrocodone Bitart/Acetaminophen (Hydrocodone/Apap 10/325 Tab) 1 tab PO Q4HR PRN PRN Reason: PAIN SCALE 7-10 (Severe Stop: 01/25/25 16:46 Last Admin: 01/23/25 21:38 Dose: 1 tab Albuterol/Ipratropium (Albuterol/Ipratropium (Duoneb) Rt Lisset 3 Ml Nebu) 3 ml INH Q6HRRT PRN PRN Reason: Wheezing Stop: 02/19/25 18:37 Dextrose (Dextrose 50%-Water Inj 50 Ml Syringe) 25 ml IV Q15MIN PRN PRN Reason: BG 50-70 responsive npo pt Stop: 02/19/25 18:38 Dextrose (Dextrose 50%-Water Inj 50 Ml Syringe) 50 ml IV Q15MIN PRN PRN Reason: BG <50 OR BG <70 & pt unresponsive Stop: 02/19/25 18:38 Ferrous Sulfate (Ferrous Sulf 325 Mg Tablet) 325 mg PO QOD [facility] Stop: 02/20/25 11:29 Last Admin: 01/23/25 08:53 Dose: 325 mg Furosemide (Furosemide Inj 10 Mg/Ml Vial 2 Ml) 20 mg IVP BIDD [facility] Stop: 02/20/25 17:59 Last Admin: 01/24/25 05:38 Dose: 20 mg Glucagon (Glucagon Inj 1 Mg Vial) 1 mg IM Q15MIN PRN PRN Reason: BG <70, and no IV access Heparin Sodium (Porcine) (Heparin Sod Inj 5000 Unit/Ml Vial) 5,000 unit SC BID [facility] Stop: 02/03/25 20:59 Last Admin: 01/24/25 08:54 Dose: Not Given Hydromorphone HCl (Hydromorphone Inj 2 Mg/Ml Vial) 1 mg IVP Q6H PRN; Protocol PRN Reason: BREAKTHROUGH PAIN (SEVERE) Stop: 01/29/25 00:09 Last Admin: 01/24/25 07:52 Dose: 1 mg Albumin Human (Albuminar-25 Ivpb) 25 gm in 100 mls @ 100 mls/hr IV QDAY@1130 [facility] Stop: 01/25/25 11:29 Last Admin: 01/24/25 14:00 Dose: 100 mls/hr Azithromycin 500 mg/ Sodium (Chloride) 250 mls @ 250 mls/hr IV DAILY@2100 [facility] Stop: 01/30/25 21:55 Last Admin: 01/23/25 22:48 Dose: 250 mls/hr Piperacillin/Tazobactam/Dextrose (Zosyn) 3.375 gm in 50 mls @ 12.5 mls/hr IV Q8HR [facility]; Protocol Stop: 01/31/25 21:59 Ibuprofen (Ibuprofen Tab 400 Mg Tablet) 400 mg PO Q6HR PRN; Protocol PRN Reason: Pain 4-6 Or Fever > 100.4 Stop: 02/23/25 14:00 Last Admin: 01/24/25 14:09 Dose: 400 mg Insulin Human Lispro (Insulin Lispro (Admelog) 1 Unit/0.01 Ml Unit) 0 unit SC ACHS [facility]; Protocol Stop: 02/19/25 20:59 Last Admin: 01/24/25 11:52 Dose: 1 unit Lactulose (Lactulose Syrup 20 Gm/30 Ml Udc) 20 gm PO TID [facility]; Protocol Stop: 02/23/25 13:59 Last Admin: 01/24/25 14:05 Dose: 20 gm Levothyroxine Sodium (Levothyroxine Sodium 112 Mcg Tablet) 112 mcg PO ACBR [facility] Stop: 02/20/25 05:59 Last Admin: 01/24/25 05:38 Dose: 112 mcg Lidocaine (Lidocaine 5% 1 Patch) 1 patch TOP UD PRN PRN Reason: Back pain Stop: 02/20/25 10:21 Loratadine (Loratadine 10 Mg Tablet) 10 mg PO QDAY [facility] Stop: 02/20/25 08:59 Last Admin: 01/24/25 08:38 Dose: 10 mg Metoprolol Succinate (Metoprolol Succinate Xl 25 Mg Tabcr) 50 mg PO QDAY [facility] Stop: 02/20/25 08:59 Midodrine (Midodrine 5 Mg Tablet) 15 mg PO TID [facility] Stop: 02/23/25 21:59 Ondansetron HCl (Ondansetron Inj 2 Mg/Ml Inj 2 Ml) 4 mg IVP Q6H PRN; Protocol PRN Reason: NAUSEA OR VOMITING Stop: 02/19/25 16:46 Last Admin: 01/23/25 15:31 Dose: 4 mg Oxycodone/Acetaminophen (Oxycodone/Apap 5/325 Tablet) 1 tab PO Q6H PRN PRN Reason: PAIN SCALE 4-6 (Moderate Stop: 01/25/25 16:46 Last Admin: 01/22/25 20:58 Dose: 1 tab Pantoprazole Sodium (Pantoprazole Inj 40 Mg Vial) 40 mg IVP BID [facility] Stop: 02/20/25 08:59 Last Admin: 01/24/25 08:38 Dose: 40 mg Pregabalin (Pregabalin 75 Mg Capsule) 150 mg PO BID [facility] Stop: 02/19/25 20:59 Last Admin: 01/24/25 08:37 Dose: 150 mg Primidone (Primidone 50 Mg Tablet) 250 mg PO QDAY [facility] Stop: 01/26/25 10:29 Last Admin: 01/24/25 08:38 Dose: 250 mg Primidone (Primidone 50 Mg Tablet) 50 mg PO HS [facility] Stop: 01/26/25 20:59 Last Admin: 01/23/25 21:24 Dose: 50 mg Spironolactone (Spironolactone 25 Mg Tablet) 25 mg PO BID [facility] Stop: 02/20/25 08:59 Last Admin: 01/24/25 08:37 Dose: 25 mg Discontinued Medications Benzocaine (Benzocaine 20% (Hurricaine) Carney 1 Dose) 0 dose TOP X1 ONE Stop: 01/21/25 17:30 Diphenhydramine HCl (Diphenhydramine Inj 50 Mg/Ml Vial) 25 mg IVP PRNMRX1 PRN PRN Reason: MODERATE SEDATION Stop: 01/21/25 19:29 Fentanyl Citrate (Fentanyl Cit Inj 50 Mcg/Ml Amp 2ml) 50 mcg IVP Q2M PRN PRN Reason: MODERATE SEDATION Stop: 01/21/25 19:29 Ferrous Sulfate (Ferrous Sulf 325 Mg Tablet) 325 mg PO QDAY [facility] Stop: 02/20/25 08:59 Last Admin: 01/21/25 09:52 Dose: 325 mg Furosemide (Furosemide Inj 10 Mg/Ml 4ml Vial) 40 mg IVP BIDD [facility] Stop: 02/19/25 17:59 Last Admin: 01/21/25 06:50 Dose: 40 mg Furosemide (Furosemide Inj 10 Mg/Ml 4ml Vial) 20 mg IVP BIDD [facility] Stop: 02/20/25 17:59 Last Admin: 01/22/25 05:21 Dose: Not Given Hydromorphone HCl (Hydromorphone Inj 2 Mg/Ml Vial) 1 mg IVP Q6H PRN PRN Reason: PAIN Stop: 01/28/25 22:00 Hydromorphone HCl (Hydromorphone Inj 2 Mg/Ml Vial) 1 mg IVP Q6HR PRN PRN Reason: PAIN SCALE 7-10 (Severe Stop: 01/28/25 22:12 Hydromorphone HCl (Hydromorphone Inj 2 Mg/Ml Vial) 1 mg IVP X1 STA Stop: 01/23/25 22:35 Last Admin: 01/23/25 22:49 Dose: 1 mg Albumin Human (Albuminar-25 Ivpb) 12.5 gm in 50 mls @ 50 mls/hr IV X1 ONE Stop: 01/20/25 17:46 Ceftriaxone Sodium/Dextrose (Rocephin/D5w 1gm Iv Premix) 1 gm in 50 mls @ 100 mls/hr IV QDAY [facility] Stop: 01/27/25 16:59 Last Admin: 01/24/25 08:38 Dose: 100 mls/hr Albumin Human (Albuminar-25 Ivpb) 12.5 gm in 50 mls @ 50 mls/hr IV X1 ONE Stop: 01/21/25 09:59 Last Admin: 01/21/25 15:10 Dose: 50 mls/hr Magnesium Sulfate (Magnesium Sulfate Ivpb) 2 gm in 50 mls @ 25 mls/hr IV X1 ONE Stop: 01/21/25 10:51 Last Admin: 01/21/25 14:16 Dose: 25 mls/hr Albumin Human (Albuminar-25 Ivpb) 12.5 gm in 50 mls @ 50 mls/hr IV X1 ONE Stop: 01/21/25 11:58 Last Admin: 01/21/25 13:54 Dose: 50 mls/hr Albumin Human (Albuminar-25 Ivpb) 12.5 gm in 50 mls @ 50 mls/hr IV X1 ONE Stop: 01/21/25 15:38 Last Admin: 01/21/25 14:58 Dose: 50 mls/hr Magnesium Sulfate (Magnesium Sulfate Ivpb) 4 gm in 50 mls @ 12.5 mls/hr IV X1 ONE Stop: 01/22/25 12:33 Last Admin: 01/22/25 08:50 Dose: 12.5 mls/hr Albumin Human (Albuminar-5 Ivpb) 12.5 gm in 250 mls @ 100 mls/hr IV QDAY [facility] Stop: 01/26/25 08:52 Last Admin: 01/24/25 08:38 Dose: 100 mls/hr Albumin Human (Albuminar-25 Ivpb) 25 gm in 100 mls @ 100 mls/hr IV QDAY [facility] Stop: 01/25/25 11:29 Lactated Ringer's (Lactated Ringers) 500 mls @ 999 mls/hr IV .Q31M ONE Stop: 01/22/25 12:45 Last Admin: 01/22/25 12:09 Dose: 999 mls/hr Sodium Chloride (Ns) 250 mls @ 999 mls/hr IV .Q16M ONE Stop: 01/24/25 00:50 Last Admin: 01/24/25 00:53 Dose: 999 mls/hr Sodium Chloride (Ns) 250 mls @ 999 mls/hr IV .Q16M ONE Stop: 01/24/25 08:42 Last Admin: 01/24/25 08:39 Dose: 999 mls/hr Sodium Chloride (Ns) 250 mls @ 999 mls/hr IV .Q16M ONE Stop: 01/24/25 12:00 Last Admin: 01/24/25 12:44 Dose: 999 mls/hr Piperacillin/Tazobactam/Dextrose (Zosyn) 3.375 gm in 50 mls @ 100 mls/hr IV X1 ONE Stop: 01/24/25 14:44 Lactulose (Lactulose Syrup 20 Gm/30 Ml Udc) 20 gm PO X1 ONE; Protocol Stop: 01/22/25 17:14 Last Admin: 01/22/25 17:26 Dose: 20 gm Lactulose (Lactulose Syrup 20 Gm/30 Ml Udc) 20 gm PO X1 ONE; Protocol Stop: 01/23/25 11:54 Last Admin: 01/23/25 12:33 Dose: 20 gm Lactulose (Lactulose Syrup 20 Gm/30 Ml Udc) 20 gm PO TID [facility]; Protocol Stop: 02/23/25 05:59 Last Admin: 01/24/25 05:37 Dose: 20 gm Lactulose (Lactulose Syrup 20 Gm/30 Ml Udc) 20 gm PO X1 ONE; Protocol Stop: 01/23/25 22:13 Last Admin: 01/23/25 22:49 Dose: 20 gm Lactulose (Lactulose Syrup 20 Gm/30 Ml Udc) 10 gm PO TID [facility]; Protocol Stop: 02/23/25 13:59 Lidocaine (Lidocaine 5% 1 Patch) 1 patch TOP X1 ONE Stop: 01/21/25 10:23 Last Admin: 01/21/25 11:22 Dose: 1 patch Midazolam HCl (Midazolam Inj 1 Mg/Ml Vial 2 Ml) 2 mg IVP Q2M PRN PRN Reason: Moderate Sedation Stop: 01/21/25 19:29 Midodrine (Midodrine 5 Mg Tablet) 10 mg PO TID [facility] Stop: 02/21/25 08:59 Last Admin: 01/24/25 14:08 Dose: 10 mg Pantoprazole Sodium (Pantoprazole Inj 40 Mg Vial) 40 mg IVP QDAY [facility] Stop: 02/19/25 16:59 Last Admin: 01/20/25 18:37 Dose: 40 mg Potassium Phos/Sodium Phos (Naph,[facility] Mbdb 1 Packet (1.5 Gm)) 1 packet PO X1 ONE Stop: 01/21/25 08:52 Last Admin: 01/21/25 09:00 Dose: Not Given Primidone (Primidone 50 Mg Tablet) 1 mg PO HS [facility] Stop: 01/26/25 20:59 Sodium Polystyrene Sulfonate (Sod Polystyrene Sulfon Susp 15 Gm/60 Ml Btl) 30 gm PO X1 ONE Stop: 01/24/25 07:28 Last Admin: 01/24/25 07:42 Dose: 30 gm Zolpidem Tartrate (Zolpidem 5 Mg Tablet) 5 mg PO X1 ONE Stop: 01/21/25 20:20 Last Admin: 01/21/25 20:43 Dose: 5 mg Zolpidem Tartrate (Zolpidem 5 Mg Tablet) 5 mg PO X1 ONE Stop: 01/22/25 22:14 Last Admin: 01/22/25 22:47 Dose: 5 mg Zolpidem Tartrate (Zolpidem 5 Mg Tablet) 5 mg PO X1 ONE Stop: 01/24/25 01:04 Last Admin: 01/24/25 01:24 Dose: 5 mg Assessment & Plan Plan Ms. Mario is a 64-year-old female with past medical history significant for decompensated liver cirrhosis (diagnosed in October 2024), COPD on home oxygen, asthma, hypothyroidism, hypertension, type 2 diabetes and anxiety presented to the ED on 01/20/25 complaining of worsening abdominal pain and distention. Cardiology is consulted due to tachycardia and hypotension. #Sinus tachycardia secondary to fevers #Hypotension -Patient has been in the hospital since 01/20 however since midnight overnight patient has been having sinus tachycardia and fever. Telemetry is reviewed patient is in sinus rhythm. Since patient is a high risk for peritonitis in the setting of end-stage liver disease patient's tachycardia is likely from the fevers indicating possible source of infection. -Low cardiac suspicion for her symptoms right now, patient's hypotension is due to current illness as patient had 8.4 L of fluid removed via paracentesis. EKG: Sinus tachycardia with rate of 120 and QTc 449 Plan: -Continue treating patient's decompensated liver cirrhosis -Recommend broad-spectrum IV antibiotics for possible source of infection -Continue Lasix 20 mg twice daily -Continue spironolactone 25 mg twice daily -Recommend increasing midodrine to 15 mg 3 times daily for hypotension -Continue to hold metoprolol XL to avoid masking tachycardia in the setting of possible infection -Continue fluid restrictions and continue low-sodium 2 g diet -Strict ins and outs -Orthostatic vitals ordered -Echo with bubble study pending #End-stage liver disease #Altered mental status #[id number] type 2 diabetes #Primary hypertension #Hypothyroidism #COPD #Asthma #Anxiety Management as per primary team Thank you for the consult and allowing us to participate in the care of the patient. Cardiology will continue to follow. Assessment and plan discussed with my attending Director Of Medical Review Dr. Thom Kennedy (PGY-2)- Internal medicine resident
[2025-01-24 15:51] LABS: Albumin, Serum 4.0 gm/dL (3.4-4.8); Anion Gap 10 (7-16); BUN/Creatinine Ratio 13 Ratio (12-20); Blood Urea Nitrogen 30 mg/dL (9-23); Calcium 8.9 mg/dL (8.3-10.6); Calcium (Corrected) 8.9 mg/dL (8.5-10.1); Carbon Dioxide 27.7 mMol/L (20.0-31.0); Chloride 102 mMol/L (98-107); Creatinine (Component) 2.4 mg/dL (0.6-1.3); Estimated Creatinine Clearance 24.1 mL/min (>60); Glucose 158 mg/dL (74-106); Osmolality,Calculated 288 (275-295); Phosphorous 3.7 mg/dL (2.4-5.1); Potassium 4.1 mMol/L (3.4-5.1); Sodium 140 mMol/L (136-145); eGFR 22 See Note
[2025-01-24] MEDS: ESCITALOPRAM OXALATE 10 MG TABLET 20 MG PO (17:08)
[2025-01-24] MEDS: PIPER/TAZO 3.375 GM PREMIX 3.375 GM/50 ML BAG IV ×2 (17:08→21:53)
[2025-01-24] MEDS: Magnesium Sulfate 2 GM Ivpb 2 GM/50 ML BAG IV (17:10)
[2025-01-24 17:16] LABS: Ammonia < 10 uMol/L (11-32)
--- NOTE | 2025-01-24 17:24 | PD.RESEVENT ---
Documentation for date of: 01/24/25 Event Note Event Note: RR was called today around 11:30 as patient was found altered and tremulous. On arrival, she was ANO X3, reported feeling weak and fatigued. Physical exam showed diffuse tremors, generalized weakness in all extremities. Vitals reviewed and were WNL. Glucose was WNL. Head CT showed no acute findings. EKG showed sinus tachycardia. Ammonia was <10, troponin was negative. Remained hemodynamically stable otherwise. Repeat renal function showed worsening DONNA. Consult order to cardiology, nephrology and neurology. Will follow-up repeat blood culture. Case was discussed with attending physician. Keith Daly, PGY II This document was transcribed using voice recognition technology. Minor inaccuracies may be present.
--- NOTE | 2025-01-24 17:55 | PD.IMPROG ---
Documentation for date of: 01/24/25 Subjective Subjective Interval history: Worsening renal function on Lasix 20 mg IV push every 12 And spironolactone 25 mg p.o. twice daily Patient on midodrine and albumin Had a rapid response for altered mental status CT scan of the head is negative Exam Vital Signs Temp Pulse Resp BP Pulse Ox O2 Del Method O2 Flow Rate 99.7 F 106 H 17 93/49 L 92 L Nasal Cannula 3 01/24/25 16:00 01/24/25 16:00 01/24/25 16:00 01/24/25 16:00 01/24/25 16:00 01/24/25 16:00 01/24/25 16:00 Objective Labs 01/24/25 05:30 01/24/25 15:24 Labs: Laboratory Results - last 24 hr 01/23/25 01/24/25 01/24/25 22:10 05:30 11:43 WBC 6.9 D RBC 3.76 L Hgb 9.3 L Hct 29.5 L MCV 79 L MCH 24.7 L MCHC 31.5 RDW Std Deviation 43.6 Plt Count 114 L D Neut % (Auto) 59 Lymph % (Auto) 27 Mchenry % (Auto) 10 Eos % (Auto) 3 Baso % (Auto) 1 Neut # (Auto) 4.1 Lymph # (Auto) 1.8 Mchenry # (Auto) 0.7 Eos # (Auto) 0.2 Baso # (Auto) 0.1 Immature Gran # (Auto) 0.02 H Absolute Nucleated RBC 0.00 Immature Gran % 0 Nucleated RBC % 0 PT 13.0 H INR 1.2 APTT 30.5 D-Dimer > 3820 H Sodium 139 Potassium 5.2 H D Chloride 100 Carbon Dioxide 29.1 Anion Gap 10 BUN 22 Creatinine 2.1 H D Estim Creat Clear Calc 27.5 L eGFR 26 L BUN/Creatinine Ratio 10 L Glucose 135 H Calculated Osmolality 282 Lactic Acid 1.8 Calcium 9.0 Corrected Calcium 9.2 Phosphorus 3.9 Magnesium 1.9 Total Bilirubin 0.6 AST 36 H ALT 15 Alkaline Phosphatase 149 H Ammonia Troponin I < 0.002 Total Protein 6.4 Albumin 3.8 Globulin 2.6 Albumin/Globulin Ratio 1.5 01/24/25 01/24/25 15:24 16:45 WBC RBC Hgb Hct MCV MCH MCHC RDW Std Deviation Plt Count Neut % (Auto) Lymph % (Auto) Mchenry % (Auto) Eos % (Auto) Baso % (Auto) Neut # (Auto) Lymph # (Auto) Mchenry # (Auto) Eos # (Auto) Baso # (Auto) Immature Gran # (Auto) Absolute Nucleated RBC Immature Gran % Nucleated RBC % PT INR APTT D-Dimer Sodium 140 Potassium 4.1 D Chloride 102 Carbon Dioxide 27.7 Anion Gap 10 BUN 30 H Creatinine 2.4 H Estim Creat Clear Calc 24.1 L eGFR 22 L BUN/Creatinine Ratio 13 Glucose 158 H Calculated Osmolality 288 Lactic Acid Calcium 8.9 Corrected Calcium 8.9 Phosphorus 3.7 Magnesium Total Bilirubin AST ALT Alkaline Phosphatase Ammonia < 10 L Troponin I Total Protein Albumin 4.0 Globulin Albumin/Globulin Ratio Impressions Impression: Decompensated cirrhotic liver disease Rising BUN/creatinine recommend nephrology consultation Continue Lasix and spironolactone Assessment & Plan A&P Narrative # Decompensated alcoholic liver disease with advanced portal hypertension esophageal varices and intractable ascites Plan Agree with the IV Lasix Agree with IV albumin Add spironolactone 25 mg p.o. twice daily Scheduled for therapeutic paracentesis Monitor renal function closely Consent obtained for fiberoptic esophagogastroduodenoscopy with possible biopsy possible therapeutic intervention for prophylactic band ligation of the esophageal varices Agree with IV ceftriaxone for the possibility of subacute bacterial peritonitis Will follow the patient Other medical problems include COPD on home oxygen 2 L nasal cannula Essential hypertension Hypothyroidism Hyperlipidemia Thank you very much for the opportunity to participate in care of this patient Time Spent With Patient Time: Total time spent is greater than 50% in coordination of care (as documented) at patient's floor/unit and/or counseling patient:
--- NOTE | 2025-01-24 18:05 | ESCONSULT_ITS ---
HPI Data of Consult Requesting Physician: Brandon Sawyer MD Admitting Provider: Brandon Sawyer MD Attending Provider: Brandon Sawyer MD Primary Care Provider: Hima Musa MD Consult Narrative History of present illness: Ms. Mario is a 64-year-old female with past medical history of alcohol induced liver cirrhosis now decompensated with advanced portal hypertension, COPD on home O2 2 L, hypothyroidism, asthma, hypertension, type 2 diabetes, anxiety who presents with bilateral tremors concerning for seizures. On 01/22 patient was obtunded with general weakness a stroke alert was called though her symptoms resolved and NIHSS score was 0 CT head was negative for hemorrhage. On 01/23 rapid response was called for fever of 102.8 and SpO2 85% on room air patient was uptitrated to 3 L on nasal cannula. Rapid response was called this morning for bilateral tremors concerning for seizures. When asked about previous episodes of reports that she was aware of what was going on around her but was unable to vocalize her concerns. Patient evaluated at bedside. Patient continues to have clonic jerking of upper and lower extremities bilaterally, though she does not lose consciousness, bite her tongue, urinate during these episodes. Saturating 93% on 3 L oxygen. Patient also had 1 week sewed of hypotension 82/55 at 0837 this morning that resolved. Patient continues to spike fevers with 102.8 max. cc:: cc: Brandon Sawyer MD Review of Systems Review of Systems Narrative Review of Systems: 14 point review of systems negative other than HPI Exam Vital Signs Temp Pulse Resp BP Pulse Ox O2 Del Method O2 Flow Rate 99.7 F 106 H 17 93/49 L 92 L Nasal Cannula 3 01/24/25 16:00 01/24/25 16:00 01/24/25 16:00 01/24/25 16:00 01/24/25 16:01/24/25 16:00 01/24/25 16:00 Narrative Exam General: No acute distress, well nourished Eye: PERRL, EOMI, normal conjunctiva, no scleral icterus HENT: Normocephalic, atraumatic, hearing intact to conversation at normal volume, moist oral mucosa Neck: Supple, non-tender, no JVD, no lymphadenopathy Lungs: Non-labored respirations, symmetric chest rise Heart: Peripheral pulses intact bilaterally Abdomen: Distended Musculoskeletal: Normal range of motion and strength Skin: Skin is warm, dry, no rashes or lesions. Psychiatric: Cooperative, appropriate mood and affect Neurologic: Mental status: Orientation: Oriented to person, place, time, and situation Communication: Patient is cooperative and can follow simple instructions Language: Speech fluent, normal rate and volume, comprehension intact Cranial nerves: CN II: Visual suh intact CN III: Pupils equal, round, and reactive to light CN III, IV, : No gaze deviation, no nystagmus Horizontal pursuit: intact Vertical pursuit: intact Ptosis: none CN V: Facial sensation to light touch intact bilaterally at the forehead, cheeks, and jaw line CN VII: Face symmetric, no facial droop appreciated CN VIII: Able to hear and respond to conversation at normal volume, intact to finger rub CN IX, X: Palate elevation symmetric, uvula midline CN XI: Head turn and shoulder shrug strong, symmetric bilaterally CN XII: Normal tongue protrusion without deviation, no fasciculations Motor: Normal bulk and tone No atrophy Patient has continuous myoclonic jerking in bilateral upper and lower extremities Muscle strength: Muscle testing limited due to patient's generalized weakness, unable to examine for asterixis Sensory: RUE: Light touch intact LUE: Light touch intact RLE: Light touch intact LLE: Light touch intact Reflexes: Biceps (C5-6): R 2+ L 2+ Brachioradialis (C5-6): R 2+ L 2+ Triceps (C7-8): R 2+ L 2+ Patellae (L3-4): R 2+ L 2+ Achilles (S1-2):R 2+ L 2+ Results Labs 01/24/25 05:30 01/24/25 15:24 Labs: Short CBC 01/24/25 Range/Units 05:30 WBC 6.9 D (3.6-11.0) Thou/mm3 Hgb 9.3 L (12.0-16.0) g/dL Hct 29.5 L (36.0-46.0) % Plt Count 114 L D (140-440) Thou/mm3 BMP 01/24/25 01/24/25 05:30 15:24 Sodium 139 140 Potassium 5.2 H D 4.1 D Chloride 100 102 Carbon Dioxide 29.1 27.7 BUN 22 30 H Creatinine 2.1 H D 2.4 H Glucose 135 H 158 H Calcium 9.0 8.9 Cardiac Enzymes 01/24/25 Range/Units 11:43 Troponin I < 0.002 (0.0-0.045) ng/mL Liver Function 01/24/25 01/24/25 Range/Units 05:30 15:24 Total Bilirubin 0.6 (0.3-1.2) mg/dL AST 36 H (0-34) U/L ALT 15 (10-49) U/L Alkaline Phosphatase 149 H (46-116) U/L Albumin 3.8 4.0 (3.4-4.8) gm/dL Quality Measures Quality Measures none Advance care planning discussed with:: patient and child Medications Home Medications and Allergies Home Medications ?Medication ?Instructions ?Recorded ?Confirmed ?Type pregabalin 150 mg capsule (Lyrica) 150 mg PO BID #0 ca ps 04/13/16 01/20/25 History albuterol sulfate 90 mcg/actuation 2 puff inhalation Q 4H PRN 04/14/19 01/20/25 History aerosol inhaler (Ventolin HFA) Shortness Of Breath latanoprost 0.005 % eye drops 1 drp ophthalmic (eye) Q PM 04/14/19 01/20/25 History primidone 250 mg tablet 250 mg PO QDAY 04/14/1904/08 History tramadol 50 mg tablet 50 mg PO BID 04/14/19 History clonidine HCl 0.1 mg tablet 1 tab PO BID 01/18/2204/08 History Held on 01/20/25. Instructions: Doctor's Order metformin 1,000 mg tablet 1,000 mg PO BID 01/18/2204/08 History Held on 01/20/25. Instructions: awaiting insurance autho for patient to continue to take med metoprolol succinate 50 mg 1.5 tab PO QDAY 01/18/22 History tablet,extended release 24 hr Held on 01/23/25. Instructions: resume with PCP escitalopram oxalate 20 mg tablet 20 mg PO QDAY 01/20/25 History (Lexapro) levothyroxine 112 mcg capsule 112 mcg PO QDAY 05/09/23 01/20/25 History liothyronine 5 mcg tablet 20 mcg PO QDAY 05/09/2304/08 History zolpidem 5 mg tablet 5 mg PO QHSPRN 05/09/2304/08 History empagliflozin 10 mg tablet 1 mg PO DAILY 08/24/2304/08 History (Jardiance) fluticasone propionate 110 1 inh inhalation BID 01/20/25 History mcg/actuation HFA aerosol inhaler metoclopramide HCl 10 mg tablet 1 mg PO TID 08/24/23 0 01/20/25 History primidone 50 mg tablet 1 mg PO DAILY 08/24/2301/20 History semaglutide 1 mg/dose (4 mg/3 mL) 1 mg subcut QWEEK 01/20/25 History subcutaneous pen injector (Ozempic) Held on 01/20/25. Instructions: Doctor's Order tiotropium 2.5 mcg-olodaterol 2.5 2 puff inhalation DA ZAYNAB 08/24/23 01/20/25 History mcg/actuation mist for inhalation (Stiolto Respimat) aspirin 81 mg capsule 81 mg PO QDAY 01/20/2501/20 History beclomethasone dipropionate 40 2 inh inhalation BID 01/20/25 History mcg/actuation HFA breath activated aerosol (Qvar RediHaler) insulin lispro 100 unit/mL 1 sliding scale dose subcut PRN 01/20/25 01/20/25 History subcutaneous pen lubiprostone 24 mcg capsule 24 mcg PO PRN PRN constipa tion 01/20/25 01/20/25 History omeprazole 20 mg capsule,delayed 20 mg PO BID 01/20/25 01/20/25 History release spironolactone 50 mg tablet 50 mg PO BID 01/20/2504/08 History Allergies Allergy/AdvReac Type Severity Reaction Status Date / Time No Known Allergies Allergy Verified 01/20/25 12:17 Visit Medications Acetaminophen (Acetaminophen 325 Mg Tablet) 650 mg PO Q6H PRN PRN Reason: PAIN SCALE 1-3 (mild Stop: 02/19/25 16:46 Last Admin: 01/24/25 11:52 Dose: 650 mg Acetaminophen (Acetaminophen 325 Mg Tablet) 650 mg PO Q6H PRN PRN Reason: Fever >100.4 Stop: 02/19/25 16:46 Last Admin: 01/23/25 22:05 Dose: 650 mg Hydrocodone Bitart/Acetaminophen (Hydrocodone/Apap 10/325 Tab) 1 tab PO Q4HR PRN PRN Reason: PAIN SCALE 7-10 (Severe Stop: 01/25/25 16:46 Last Admin: 01/24/25 17:20 Dose: 1 tab Albuterol/Ipratropium (Albuterol/Ipratropium (Duoneb) Rt Lisset 3 Ml Nebu) 3 ml INH Q6HRRT PRN PRN Reason: Wheezing Stop: 02/19/25 18:37 Dextrose (Dextrose 50%-Water Inj 50 Ml Syringe) 25 ml IV Q15MIN PRN PRN Reason: BG 50-70 responsive npo pt Stop: 02/19/25 18:38 Dextrose (Dextrose 50%-Water Inj 50 Ml Syringe) 50 ml IV Q15MIN PRN PRN Reason: BG <50 OR BG <70 & pt unresponsive Stop: 02/19/25 18:38 Escitalopram Oxalate (Escitalopram Oxalate 10 Mg Tablet) 20 mg PO QDAY [facility] Stop: 02/23/25 16:29 Last Admin: 01/24/25 17:08 Dose: 20 mg Ferrous Sulfate (Ferrous Sulf 325 Mg Tablet) 325 mg PO QOD [facility] Stop: 02/20/25 11:29 Last Admin: 01/23/25 08:53 Dose: 325 mg Furosemide (Furosemide Inj 10 Mg/Ml Vial 2 Ml) 20 mg IVP BIDD [facility] Stop: 02/20/25 17:59 Last Admin: 01/24/25 05:38 Dose: 20 mg Glucagon (Glucagon Inj 1 Mg Vial) 1 mg IM Q15MIN PRN PRN Reason: BG <70, and no IV access Heparin Sodium (Porcine) (Heparin Sod Inj 5000 Unit/Ml Vial) 5,000 unit SC BID [facility] Stop: 02/03/25 20:59 Last Admin: 01/24/25 08:54 Dose: Not Given Hydromorphone HCl (Hydromorphone Inj 2 Mg/Ml Vial) 1 mg IVP Q6H PRN; Protocol PRN Reason: BREAKTHROUGH PAIN (SEVERE) Stop: 01/29/25 00:09 Last Admin: 01/24/25 07:52 Dose: 1 mg Azithromycin 500 mg/ Sodium (Chloride) 250 mls @ 250 mls/hr IV DAILY@2100 REYNA Stop: 01/30/25 21:55 Last Admin: 01/23/25 22:48 Dose: 250 mls/hr Piperacillin/Tazobactam/Dextrose (Zosyn) 3.375 gm in 50 mls @ 12.5 mls/hr IV Q8HR [facility]; Protocol Stop: 01/31/25 21:59 Magnesium Sulfate (Magnesium Sulfate Ivpb) 2 gm in 50 mls @ 25 mls/hr IV X1 ONE Stop: 01/24/25 18:17 Last Admin: 01/24/25 17:10 Dose: 25 mls/hr Ibuprofen (Ibuprofen Tab 400 Mg Tablet) 400 mg PO Q6HR PRN; Protocol PRN Reason: Pain 4-6 Or Fever > 100.4 Stop: 02/23/25 14:00 Last Admin: 01/24/25 14:09 Dose: 400 mg Insulin Human Lispro (Insulin Lispro (Admelog) 1 Unit/0.01 Ml Unit) 0 unit SC ACHS [facility]; Protocol Stop: 02/19/25 20:59 Last Admin: 01/24/25 11:52 Dose: 1 unit Lactulose (Lactulose Syrup 20 Gm/30 Ml Udc) 20 gm PO TID [facility]; Protocol Stop: 02/23/25 13:59 Last Admin: 01/24/25 14:05 Dose: 20 gm Levothyroxine Sodium (Levothyroxine Sodium 112 Mcg Tablet) 112 mcg PO ACBR REYNA Stop: 02/20/25 05:59 Last Admin: 01/24/25 05:38 Dose: 112 mcg Lidocaine (Lidocaine 5% 1 Patch) 1 patch TOP UD PRN PRN Reason: Back pain Stop: 02/20/25 10:21 Loratadine (Loratadine 10 Mg Tablet) 10 mg PO QDAY [facility] Stop: 02/20/25 08:59 Last Admin: 01/24/25 08:38 Dose: 10 mg Metoprolol Succinate (Metoprolol Succinate Xl 25 Mg Tabcr) 50 mg PO QDAY [facility] Stop: 02/20/25 08:59 Midodrine (Midodrine 5 Mg Tablet) 15 mg PO TID [facility] Stop: 02/23/25 21:59 Ondansetron HCl (Ondansetron Inj 2 Mg/Ml Inj 2 Ml) 4 mg IVP Q6H PRN; Protocol PRN Reason: NAUSEA OR VOMITING Stop: 02/19/25 16:46 Last Admin: 01/23/25 15:31 Dose: 4 mg Oxycodone/Acetaminophen (Oxycodone/Apap 5/325 Tablet) 1 tab PO Q6H PRN PRN Reason: PAIN SCALE 4-6 (Moderate Stop: 01/25/25 16:46 Last Admin: 01/22/25 20:58 Dose: 1 tab Pantoprazole Sodium (Pantoprazole Inj 40 Mg Vial) 40 mg IVP BID [facility] Stop: 02/20/25 08:59 Last Admin: 01/24/25 08:38 Dose: 40 mg Pregabalin (Pregabalin 75 Mg Capsule) 150 mg PO BID [facility] Stop: 02/19/25 20:59 Last Admin: 01/24/25 08:37 Dose: 150 mg Primidone (Primidone 50 Mg Tablet) 250 mg PO QDAY [facility] Stop: 01/26/25 10:29 Last Admin: 01/24/25 08:38 Dose: 250 mg Primidone (Primidone 50 Mg Tablet) 50 mg PO [facility] Stop: 01/26/25 20:59 Last Admin: 01/23/25 21:24 Dose: 50 mg Spironolactone (Spironolactone 25 Mg Tablet) 25 mg PO BID [facility] Stop: 02/20/25 08:59 Last Admin: 01/24/25 08:37 Dose: 25 mg Zolpidem Tartrate (Zolpidem 5 Mg Tablet) 5 mg PO [facility] Stop: 02/23/25 20:59 Discontinued Medications Benzocaine (Benzocaine 20% (Hurricaine) [place] 1 Dose) 0 dose TOP X1 ONE Stop: 01/21/25 17:30 Diphenhydramine HCl (Diphenhydramine Inj 50 Mg/Ml Vial) 25 mg IVP PRNMRX1 PRN PRN Reason: MODERATE SEDATION Stop: 01/21/25 19:29 Fentanyl Citrate (Fentanyl Cit Inj 50 Mcg/Ml Amp 2ml) 50 mcg IVP Q2M PRN PRN Reason: MODERATE SEDATION Stop: 01/21/25 19:29 Ferrous Sulfate (Ferrous Sulf 325 Mg Tablet) 325 mg PO QDAY [facility] Stop: 02/20/25 08:59 Last Admin: 01/21/25 09:52 Dose: 325 mg Furosemide (Furosemide Inj 10 Mg/Ml 4ml Vial) 40 mg IVP BIDD [facility] Stop: 02/19/25 17:59 Last Admin: 01/21/25 06:50 Dose: 40 mg Furosemide (Furosemide Inj 10 Mg/Ml 4ml Vial) 20 mg IVP BIDD [facility] Stop: 02/20/25 17:59 Last Admin: 01/22/25 05:21 Dose: Not Given Hydromorphone HCl (Hydromorphone Inj 2 Mg/Ml Vial) 1 mg IVP Q6H PRN PRN Reason: PAIN Stop: 01/28/25 22:00 Hydromorphone HCl (Hydromorphone Inj 2 Mg/Ml Vial) 1 mg IVP Q6HR PRN PRN Reason: PAIN SCALE 7-10 (Severe Stop: 01/28/25 22:12 Hydromorphone HCl (Hydromorphone Inj 2 Mg/Ml Vial) 1 mg IVP X1 STA Stop: 01/23/25 22:35 Last Admin: 01/23/25 22:49 Dose: 1 mg Albumin Human (Albuminar-25 Ivpb) 12.5 gm in 50 mls @ 50 mls/hr IV X1 ONE Stop: 01/20/25 17:46 Ceftriaxone Sodium/Dextrose (Rocephin/D5w 1gm Iv Premix) 1 gm in 50 mls @ 100 mls/hr IV QDAY [facility] Stop: 01/27/25 16:59 Last Admin: 01/24/25 08:38 Dose: 100 mls/hr Albumin Human (Albuminar-25 Ivpb) 12.5 gm in 50 mls @ 50 mls/hr IV X1 ONE Stop: 01/21/25 09:59 Last Admin: 01/21/25 15:10 Dose: 50 mls/hr Magnesium Sulfate (Magnesium Sulfate Ivpb) 2 gm in 50 mls @ 25 mls/hr IV X1 ONE Stop: 01/21/25 10:51 Last Admin: 01/21/25 14:16 Dose: 25 mls/hr Albumin Human (Albuminar-25 Ivpb) 12.5 gm in 50 mls @ 50 mls/hr IV X1 ONE Stop: 01/21/25 11:58 Last Admin: 01/21/25 13:54 Dose: 50 mls/hr Albumin Human (Albuminar-25 Ivpb) 12.5 gm in 50 mls @ 50 mls/hr IV X1 ONE Stop: 01/21/25 15:38 Last Admin: 01/21/25 14:58 Dose: 50 mls/hr Magnesium Sulfate (Magnesium Sulfate Ivpb) 4 gm in 50 mls @ 12.5 mls/hr IV X1 ONE Stop: 01/22/25 12:33 Last Admin: 01/22/25 08:50 Dose: 12.5 mls/hr Albumin Human (Albuminar-5 Ivpb) 12.5 gm in 250 mls @ 100 mls/hr IV QDAY [facility] Stop: 01/26/25 08:52 Last Admin: 01/24/25 08:38 Dose: 100 mls/hr Albumin Human (Albuminar-25 Ivpb) 25 gm in 100 mls @ 100 mls/hr IV QDAY [facility] Stop: 01/25/25 11:29 Albumin Human (Albuminar-25 Ivpb) 25 gm in 100 mls @ 100 mls/hr IV QDAY@1130 [facility] Stop: 01/25/25 11:29 Last Admin: 01/24/25 14:00 Dose: 100 mls/hr Lactated Ringer's (Lactated Ringers) 500 mls @ 999 mls/hr IV .Q31M ONE Stop: 01/22/25 12:45 Last Admin: 01/22/25 12:09 Dose: 999 mls/hr Sodium Chloride (Ns) 250 mls @ 999 mls/hr IV .Q16M ONE Stop: 01/24/25 00:50 Last Admin: 01/24/25 00:53 Dose: 999 mls/hr Sodium Chloride (Ns) 250 mls @ 999 mls/hr IV .Q16M ONE Stop: 01/24/25 08:42 Last Admin: 01/24/25 08:39 Dose: 999 mls/hr Sodium Chloride (Ns) 250 mls @ 999 mls/hr IV .Q16M ONE Stop: 01/24/25 12:00 Last Admin: 01/24/25 12:44 Dose: 999 mls/hr Piperacillin/Tazobactam/Dextrose (Zosyn) 3.375 gm in 50 mls @ 100 mls/hr IV X1 ONE Stop: 01/24/25 14:44 Last Admin: 01/24/25 17:08 Dose: 100 mls/hr Lactulose (Lactulose Syrup 20 Gm/30 Ml Udc) 20 gm PO X1 ONE; Protocol Stop: 01/22/25 17:14 Last Admin: 01/22/25 17:26 Dose: 20 gm Lactulose (Lactulose Syrup 20 Gm/30 Ml Udc) 20 gm PO X1 ONE; Protocol Stop: 01/23/25 11:54 Last Admin: 01/23/25 12:33 Dose: 20 gm Lactulose (Lactulose Syrup 20 Gm/30 Ml Udc) 20 gm PO TID REYNA; Protocol Stop: 02/23/25 05:59 Last Admin: 01/24/25 05:37 Dose: 20 gm Lactulose (Lactulose Syrup 20 Gm/30 Ml Udc) 20 gm PO X1 ONE; Protocol Stop: 01/23/25 22:13 Last Admin: 01/23/25 22:49 Dose: 20 gm Lactulose (Lactulose Syrup 20 Gm/30 Ml Udc) 10 gm PO TID REYNA; Protocol Stop: 02/23/25 13:59 Lidocaine (Lidocaine 5% 1 Patch) 1 patch TOP X1 ONE Stop: 01/21/25 10:23 Last Admin: 01/21/25 11:22 Dose: 1 patch Midazolam HCl (Midazolam Inj 1 Mg/Ml Vial 2 Ml) 2 mg IVP Q2M PRN PRN Reason: Moderate Sedation Stop: 01/21/25 19:29 Midodrine (Midodrine 5 Mg Tablet) 10 mg PO TID REYNA Stop: 02/21/25 08:59 Last Admin: 01/24/25 14:08 Dose: 10 mg Pantoprazole Sodium (Pantoprazole Inj 40 Mg Vial) 40 mg IVP QDAY REYNA Stop: 02/19/25 16:59 Last Admin: 01/20/25 18:37 Dose: 40 mg Potassium Phos/Sodium Phos (Naph,[facility] Mbdb 1 Packet (1.5 Gm)) 1 packet PO X1 ONE Stop: 01/21/25 08:52 Last Admin: 01/21/25 09:00 Dose: Not Given Primidone (Primidone 50 Mg Tablet) 1 mg PO HS [facility] Stop: 01/26/25 20:59 Sodium Polystyrene Sulfonate (Sod Polystyrene Sulfon Susp 15 Gm/60 Ml Btl) 30 gm PO X1 ONE Stop: 01/24/25 07:28 Last Admin: 01/24/25 07:42 Dose: 30 gm Zolpidem Tartrate (Zolpidem 5 Mg Tablet) 5 mg PO X1 ONE Stop: 01/21/25 20:20 Last Admin: 01/21/25 20:43 Dose: 5 mg Zolpidem Tartrate (Zolpidem 5 Mg Tablet) 5 mg PO X1 ONE Stop: 01/22/25 22:14 Last Admin: 01/22/25 22:47 Dose: 5 mg Zolpidem Tartrate (Zolpidem 5 Mg Tablet) 5 mg PO X1 ONE Stop: 01/24/25 01:04 Last Admin: 01/24/25 01:24 Dose: 5 mg Assessment & Plan Plan # Bilateral tremors vs myoclonic jerking # AMS In the setting of alcohol induced liver cirrhosis, DONNA, esophageal varices, COPD on home 2 L O2, type 2 diabetes, mild hyperkalemia Patient has had multiple episodes of altered mental status. On 01/22 patient was obtunded with generalized weakness stroke alert was called and symptoms resolved without intervention. NIHSS was [address] head was negative for hemorrhage. Another rapid response was called on 71 and 1130 for altered mental status with AO x 0, bilateral tremors concerning for seizures. Vitals reviewed and were WNL. Glucose was WNL. Head CT showed no acute findings. EKG showed sinus tachycardia. Ammonia was <10, troponin was negative. Remained hemodynamically stable otherwise. Upon exam patient exhibited bilateral upper and lower extremity myoclonic jerking without altered mental status Labs significant for microcytic anemia, mildly elevated potassium at 5.2 now within normal limits, elevated creatinine at 2.1, AST elevated 36, alk phos elevated 149. Ammonia, B12, folate, TSH within normal limits. A1c 7.7 from 08/2024. CT head on 711 negative for acute hemorrhage, midline shift, mass effect Patient has had multiple episodes of fevers with Tmax at 102.8 today. Patient also required up titration of supplemental O2 now saturating appropriately on 3 L oxygen. Patient has not had a bowel movement since hospitalization. DDX: Seizures, electrolyte abnormalities, Wernicke's encephalopathy, DONNA/uremia. Plan: - Pending EEG read - Management of abnormal electrolytes per primary - Management of DONNA per primary - Encourage patient to have BM - Thiamine? Plan discussed with Dr. Eufemia Bernard, PGY1 Attending Provider Attestation/Addendum I independently reviewed the patient and agree with resident's findings, assessment and plan of care. The the tremors could have been related to hepatic encephalopathy/DONNA. Will resume her escitalopram and primidone. Continue to hold metoclopramide. Follow-up with EEG
[2025-01-24] MEDS: ONDANSETRON INJ 2 MG/ML INJ 2 ML 4 MG IVP (19:52)
--- NOTE | 2025-01-24 20:47 | XR_ITS ---
Examination: Retroperitoneal ultrasound, complete Technique: Multiple high resolution grayscale images of the retroperitoneum obtained, including kidneys and bladder. Exam date and time:January 24, 2025 2130 hours INDICATIONS: Abdominal distention acute renal insufficiency on laboratory examination today FINDINGS: The right kidney 8.8 cm renal cortex 1.7 cm Left kidney 11.3 cm cortex 1.5 cm Mild right moderate left renal parenchymal scar formation No bladder mass or bladder calculi Ascitic fluid throughout the abdomen Bladder prevoid volume 1 87 cc unable to void IMPRESSION: Bilateral renal cortical thinning Small right kidney Mild right and moderate left renal parenchymal scar formation
[2025-01-24] MEDS: HEPARIN SOD INJ 5000 UNIT/ML VIAL SC (21:49)
[2025-01-24] MEDS: AZITHROMYCIN INJ 500 MG in SODIUM CHLORIDE 0.9% 250 ML 250 ML 250 MG IV (22:24)
[2025-01-24] MEDS: MIDODRINE 5 MG TABLET 15 MG PO (22:25)
[2025-01-24] MEDS: PRIMIDONE 50 MG TABLET PO (22:29)
[2025-01-24] MEDS: DOCUSATE SOD 100 MG CAPSULE 200 MG PO (22:31)
[2025-01-25] VITALS (15 sets, daily range): BP systolic 82–122; BP diastolic 36–78; PULSE 76–113; RESP 14–19; TEMP 35.9–37.2; O2SAT 91–96
[2025-01-25 00:37] LABS: Creatinine,Random Urine 136 mg/dL (30-125); Sodium,Urine Random 57.0 mMol/L (20.0-110.0)
[2025-01-25] MEDS: GLYCERIN, ADULT 1 EA SUPP 1 EACH PR (01:20)
[2025-01-25] MEDS: ZOLPIDEM 5 MG TABLET PO (01:27)
[2025-01-25] MEDS: MIDODRINE 5 MG TABLET 15 MG PO ×3 (05:55→22:16)
[2025-01-25] MEDS: LEVOTHYROXINE SODIUM 112 MCG TABLET PO (05:56)
[2025-01-25] MEDS: LACTULOSE SYRUP 20 GM/30 ML UDC PO ×4 (05:56→20:47)
[2025-01-25] MEDS: PIPER/TAZO 3.375 GM PREMIX 3.375 GM/50 ML BAG IV ×2 (05:56→14:28)
[2025-01-25] MEDS: PRIMIDONE 50 MG TABLET 250 MG PO (08:22)
[2025-01-25] MEDS: HEPARIN SOD INJ 5000 UNIT/ML VIAL SC ×2 (08:22→20:47)
[2025-01-25] MEDS: PREGABALIN 75 MG CAPSULE 150 MG PO ×2 (08:23→20:47)
[2025-01-25] MEDS: ESCITALOPRAM OXALATE 10 MG TABLET 20 MG PO (08:23)
[2025-01-25] MEDS: DOCUSATE SOD 100 MG CAPSULE 200 MG PO (08:23)
[2025-01-25] MEDS: FERROUS SULF 325 MG TABLET PO (08:23)
[2025-01-25] MEDS: SPIRONOLACTONE 25 MG TABLET PO (08:23)
[2025-01-25 09:01] LABS: Lactate (Lactic Acid) 2.9 mMol/L (0.4-2.0)
[2025-01-25 09:05] LABS: Basophils # (Auto) 0.1 Thou/mm3 (0.0-0.2); Basophils % (Auto) 1 % (0-2.5); Eosinophils # (Auto) 0.3 Thou/mm3 (0.0-0.5); Eosinophils % (Auto) 3 % (0-10); Hematocrit 29.3 % (36.0-46.0); Hemoglobin 9.2 g/dL (12.0-16.0); Immature Granulocytes Auto 0.07 Thou/mm3 (0.00-0.00); Lymphocytes # (Auto) 0.9 Thou/mm3 (1.0-4.8); Lymphocytes % (Auto) 9 % (10-50); Mean Corpuscular HGB Conc 31.4 g/dl (31.0-37.0); Mean Corpuscular Hemoglobin 24.3 pg (25.0-35.0); Mean Corpuscular Volume 78 fL (80-100); Monocytes # (Auto) 0.8 Thou/mm3 (0.0-0.8); Monocytes % (Auto) 8 % (0-12); Neutrophils # (Auto) 7.7 Thou/mm3 (1.8-7.7); Neutrophils % (Auto) 79 % (37-80); Nucleated Red Blood Cell # 0.00 Thou/mm3 (0.00-0.00); Nucleated Red Blood Cell % 0 /100 WBC (0); Platelet Count 145 Thou/mm3 (140-440); RDW Standard Deviation 43.6 fL (36.4-46.3); Red Blood Count 3.78 Miln/mm3 (4.00-5.20); White Blood Count 9.8 Thou/mm3 (3.6-11.0)
[2025-01-25 09:31] LABS: Alanine Aminotransferase 22 U/L (10-49); Albumin, Serum 4.0 gm/dL (3.4-4.8); Albumin/Globulin Ratio 1.6 (1.2-2.2); Alkaline Phosphatase 165 U/L (46-116); Anion Gap 14 (7-16); Aspartate Amino Transferase 37 U/L (0-34); BUN/Creatinine Ratio 14 Ratio (12-20); Bilirubin,Total 1.3 mg/dL (0.3-1.2); Blood Urea Nitrogen 42 mg/dL (9-23); Calcium 9.1 mg/dL (8.3-10.6); Calcium (Corrected) 9.1 mg/dL (8.5-10.1); Carbon Dioxide 26.3 mMol/L (20.0-31.0); Chloride 98 mMol/L (98-107); Creatinine (Component) 3.0 mg/dL (0.6-1.3); Estimated Creatinine Clearance 19.3 mL/min (>60); Globulin 2.5 gm/dL (2.3-3.5); Glucose 142 mg/dL (74-106); Magnesium 2.0 mg/dL (1.6-2.6); Osmolality,Calculated 288 (275-295); Phosphorous 5.9 mg/dL (2.4-5.1); Potassium 4.3 mMol/L (3.4-5.1); Sodium 138 mMol/L (136-145); Total Protein 6.5 gm/dL (5.7-8.2); eGFR 17 See Note
--- NOTE | 2025-01-25 09:43 | PD.RESCONSUL ---
HPI Data of Consult Consult date: 01/25/25 Requesting Physician: Brandon Sawyer MD Admitting Provider: Brandon Sawyer MD Attending Provider: Brandon Sawyer MD Primary Care Provider: Hima Musa MD Consult Narrative Reason for consult: DONNA History of present illness: Maria Elena Mario is a 64 year-old female with PMHx of alcoholic liver cirrhosis, COPD on home O2, hypothyroidism, asthma, HTN, T2DM and anxiety who presented to the ED with worsening abdominal pain and distention. On admission, patient reported worsening LE swelling in EVA LE, worsening over the last few months. She is also reports significant worsening abdominal distention over the last month. Associated with generalized abdominal pain and discomfort, in addition to difficulty laying flat secondary to abdominal distention. Also reports being constipated over the last few weeks. History of liver cirrhosis, diagnosed on recent visit from 08/2023. Previously she had a GI doctor in [place], but currently not following, states she is unsatisfied with this management. She follows up with an ADVERTISING PROJECT MANAGER at [facility] and has been awaiting a referral for a GI doctor in [facility]. She is scheduled for paracentesis next . However, she was sent to the ED for paracentesis but there were no available blood or blood bank technician in the ED today to perform paracentesis. She has a history of polyposis, follow-up with GI in [place] regularly. She is on a 5-year colonoscopy schedule, last was done 5 years ago and showed polyps. EGD was also done last year which was normal. Today patient was seen and examined. Patient stated that she felt a little off, but did not have any new concerns/complaints. Patient stated that she has some abdominal tenderness. Patient denied any fever, chest pain, shortness of breath. Patient consulted to neprhology for DONNA cc:: cc: Brandon Sawyer MD Review of Systems Review of Systems Narrative Review of Systems: Limited as patient seems to be having some confusion with asterixis. Constitutional Comments: CONST: Negative for fever, body aches and chills. HENT: Negative for neck pain/stiffness, headache, swelling. EYES: Negative for discharge/pain or vision changes. RESP: Negative for cough/hemoptysis and shortness of breath. CV: Negative chest pain, difficulty breathing, palpitations. ABD: Negative pain, nausea, vomiting. : Negative increase frequency, dysuria, blood in urine or stool. MUSC: Negative for muscle aches, edema. SKIN: Negative rash, lesions/sores. NEURO: Negative headache, dizziness, weakness. Past Medical History Past Medical History NEUROLOGIC: Negative Seizures CARDIAC: Positive Heart Murmur, Hypercholesterolemia and Hypertension; Negative Cardiac Disorders or Congestive Heart Failure RESPIRATORY: Positive Chronic Obstructive Pulmonary Disease (COPD), Asthma and Pneumonia GASTROINTESTINAL: Positive Gastrointestinal Disorders, Diverticulitis and Hemorrhoids GENITOURINARY: Negative Renal Disease REPRODUCTIVE: Positive Previous Pregnancies MUSCULOSKELETAL: Positive Arthritis, Carpal Tunnel Syndrome and Fibromyalgia ENT: Positive Cataracts ENDOCRINE: Positive Diabetes Mellitus Type 2 and Hypothyroidism; Negative Diabetes Mellitus Type 1 HEMATOLOGIC: Positive Anemia; Negative Sickle Cell Disease PSYCHO/SOCIAL: Positive Anxiety OTHER HISTORY: Positive Hospitalization and Chicken Pox; Negative Blood Transfusions or Anesthesia Reactions Surgical History SURGICAL: Positive Eye Surgery, Adenoidectomy, Joint Replacement and Tubal Ligation Social History SMOKING STATUS: Current every day smoker SECOND HAND EXPOSURE: Yes SUBSTANCE USE: marijuana 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 HEENT: ?NC, AT. MMM. EOMI, clear conjunctiva. NECK: ?Supple without lymphadenopathy.? No stiffness or restricted ROM. HEART:? Normal rate and regular rhythm, no m/r/g LUNGS:? Bilateral crackles. No wheezes are heard. ABDOMEN: ?Soft, nontender, distended,bowel sounds heard. BACK: No CVAT, no obvious deformity. EXTREMITIES: ?Without cyanosis, clubbing or edema. NEUROLOGICAL: ?Grossly nonfocal. Alert and oriented, moving all 4 extremities. Asterixis bilaterally of upper extremities Skin: ?Warm and dry without any rash. Results Labs 01/25/25 08:29 01/25/25 08:29 Labs: Short CBC 01/25/25 Range/Units 08:29 WBC 9.8 D (3.6-11.0) Thou/mm3 Hgb 9.2 L (12.0-16.0) g/dL Hct 29.3 L (36.0-46.0) % Plt Count 145 D (140-440) Thou/mm3 BMP 01/24/25 15:24 Sodium 140 Potassium 4.1 D Chloride 102 Carbon Dioxide 27.7 BUN 30 H Creatinine 2.4 H Glucose 158 H Calcium 8.9 Cardiac Enzymes 01/24/25 Range/Units 11:43 Troponin I < 0.002 (0.0-0.045) ng/mL Liver Function 01/24/25 Range/Units 15:24 Albumin 4.0 (3.4-4.8) gm/dL Quality Measures Quality Measures VTE prophylaxis Advance care planning discussed with:: patient Medications Home Medications and Allergies Home Medications ?Medication ?Instructions ?Recorded ?Confirmed ?Type pregabalin 150 mg capsule (Lyrica) 150 mg PO BID #0 caps 04/13/16 01/20/25 History albuterol sulfate 90 mcg/actuation 2 puff inhalation Q4H PRN 04/14/19 01/20/25 History aerosol inhaler (Ventolin HFA) Shortness Of Breath latanoprost 0.005 % eye drops 1 drp ophthalmic (eye) QPM 04/14/19 01/20/25 History primidone 250 mg tablet 250 mg PO QDAY 04/14/19 01/20/25 History tramadol 50 mg tablet 50 mg PO BID 04/14/19 01/20/25 History clonidine HCl 0.1 mg tablet 1 tab PO BID 01/18/22 01/20/25 History Held on 01/20/25. Instructions: Doctor's Order metformin 1,000 mg tablet 1,000 mg PO BID 01/18/22 01/20/25 History Held on 01/20/25. Instructions: awaiting insurance autho for patient to continue to take med metoprolol succinate 50 mg 1.5 tab PO QDAY 01/18/22 01/20/25 History tablet,extended release 24 hr Held on 01/23/25. Instructions: resume with PCP escitalopram oxalate 20 mg tablet 20 mg PO QDAY 12/21/22 01/20/25 History (Lexapro) levothyroxine 112 mcg capsule 112 mcg PO QDAY 05/09/23 01/20/25 History liothyronine 5 mcg tablet 20 mcg PO QDAY 05/09/23 01/20/25 History zolpidem 5 mg tablet 5 mg PO QHSPRN 05/09/23 01/20/25 History empagliflozin 10 mg tablet 1 mg PO DAILY 08/24/23 01/20/25 History (Jardiance) fluticasone propionate 110 1 inh inhalation BID 08/24/23 01/20/25 History mcg/actuation HFA aerosol inhaler metoclopramide HCl 10 mg tablet 1 mg PO TID 08/24/23 01/20/25 History primidone 50 mg tablet 1 mg PO DAILY 08/24/23 01/20/25 History semaglutide 1 mg/dose (4 mg/3 mL) 1 mg subcut QWEEK 08/24/23 01/20/25 History subcutaneous pen injector (Ozempic) Held on 01/20/25. Instructions: Doctor's Order tiotropium 2.5 mcg-olodaterol 2.5 2 puff inhalation DAILY 08/24/23 01/20/25 History mcg/actuation mist for inhalation (Stiolto Respimat) aspirin 81 mg capsule 81 mg PO QDAY 01/20/25 01/20/25 History beclomethasone dipropionate 40 2 inh inhalation BID 01/20/25 01/20/25 History mcg/actuation HFA breath activated aerosol (Qvar RediHaler) insulin lispro 100 unit/mL 1 sliding scale dose subcut PRN 01/20/25 01/20/25 History subcutaneous pen lubiprostone 24 mcg capsule 24 mcg PO PRN PRN constipation 01/20/25 01/20/25 History omeprazole 20 mg capsule,delayed 20 mg PO BID 01/20/25 01/20/25 History release spironolactone 50 mg tablet 50 mg PO BID 01/20/25 01/20/25 History Allergies Allergy/AdvReac Type Severity Reaction Status Date / Time No Known Allergies Allergy Verified 01/20/25 12:17 Visit Medications Acetaminophen (Acetaminophen 325 Mg Tablet) 650 mg PO Q6H PRN PRN Reason: PAIN SCALE 1-3 (mild Stop: 02/19/25 16:46 Last Admin: 01/24/25 11:52 Dose: 650 mg Acetaminophen (Acetaminophen 325 Mg Tablet) 650 mg PO Q6H PRN PRN Reason: Fever >100.4 Stop: 02/19/25 16:46 Last Admin: 01/24/25 19:47 Dose: 650 mg Hydrocodone Bitart/Acetaminophen (Hydrocodone/Apap 10/325 Tab) 1 tab PO Q4HR PRN PRN Reason: PAIN SCALE 7-10 (Severe Stop: 01/25/25 16:46 Last Admin: 01/24/25 17:20 Dose: 1 tab Albuterol/Ipratropium (Albuterol/Ipratropium (Duoneb) Rt Lisset 3 Ml Nebu) 3 ml INH Q6HRRT PRN PRN Reason: Wheezing Stop: 02/19/25 18:37 Dextrose (Dextrose 50%-Water Inj 50 Ml Syringe) 25 ml IV Q15MIN PRN PRN Reason: BG 50-70 responsive npo pt Stop: 02/19/25 18:38 Dextrose (Dextrose 50%-Water Inj 50 Ml Syringe) 50 ml IV Q15MIN PRN PRN Reason: BG <50 OR BG <70 & pt unresponsive Stop: 02/19/25 18:38 Docusate Sodium (Docusate Sod 100 Mg Capsule) 200 mg PO QDAY [facility]; Protocol Stop: 02/23/25 20:59 Last Admin: 01/25/25 08:23 Dose: 200 mg Escitalopram Oxalate (Escitalopram Oxalate 10 Mg Tablet) 20 mg PO QDAY REYNA Stop: 02/23/25 16:29 Last Admin: 01/25/25 08:23 Dose: 20 mg Ferrous Sulfate (Ferrous Sulf 325 Mg Tablet) 325 mg PO QOD REYNA Stop: 02/20/25 11:29 Last Admin: 01/25/25 08:23 Dose: 325 mg Furosemide (Furosemide Inj 10 Mg/Ml Vial 2 Ml) 20 mg IVP BIDD REYNA Stop: 02/20/25 17:59 Last Admin: 01/24/25 05:38 Dose: 20 mg Glucagon (Glucagon Inj 1 Mg Vial) 1 mg IM Q15MIN PRN PRN Reason: BG <70, and no IV access Glycerin (Glycerin, Adult 1 Ea Supp) 1 each CO QDAY PRN PRN Reason: CONSTIPATION Stop: 02/23/25 20:52 Last Admin: 01/25/25 01:20 Dose: 1 each Heparin Sodium (Porcine) (Heparin Sod Inj 5000 Unit/Ml Vial) 5,000 unit SC BID REYNA Stop: 02/03/25 20:59 Last Admin: 01/25/25 08:22 Dose: 5,000 unit Hydromorphone HCl (Hydromorphone Inj 2 Mg/Ml Vial) 1 mg IVP Q6H PRN; Protocol PRN Reason: BREAKTHROUGH PAIN (SEVERE) Stop: 01/29/25 00:09 Last Admin: 01/24/25 19:46 Dose: 1 mg Azithromycin 500 mg/ Sodium (Chloride) 250 mls @ 250 mls/hr IV DAILY@2100 [facility] Stop: 01/30/25 21:55 Last Infusion: 01/25/25 02:44 Dose: Infused Piperacillin/Tazobactam/Dextrose (Zosyn) 3.375 gm in 50 mls @ 12.5 mls/hr IV Q8HR [facility]; Protocol Stop: 01/31/25 21:59 Last Admin: 01/25/25 05:56 Dose: 12.5 mls/hr Ibuprofen (Ibuprofen Tab 400 Mg Tablet) 400 mg PO Q6HR PRN; Protocol PRN Reason: Pain 4-6 Or Fever > 100.4 Stop: 02/23/25 14:00 Last Admin: 01/24/25 14:09 Dose: 400 mg Insulin Human Lispro (Insulin Lispro (Admelog) 1 Unit/0.01 Ml Unit) 0 unit SC [facility]; Protocol Stop: 02/19/25 20:59 Last Admin: 01/25/25 07:43 Dose: Not Given Lactulose (Lactulose Syrup 20 Gm/30 Ml Udc) 20 gm PO TID [facility]; Protocol Stop: 02/23/25 13:59 Last Admin: 01/25/25 05:56 Dose: 20 gm Levothyroxine Sodium (Levothyroxine Sodium 112 Mcg Tablet) 112 mcg PO ACBR [facility] Stop: 02/20/25 05:59 Last Admin: 01/25/25 05:56 Dose: 112 mcg Lidocaine (Lidocaine 5% 1 Patch) 1 patch TOP UD PRN PRN Reason: Back pain Stop: 02/20/25 10:21 Loratadine (Loratadine 10 Mg Tablet) 10 mg PO QDAY [facility] Stop: 02/20/25 08:59 Last Admin: 01/25/25 08:23 Dose: 10 mg Metoprolol Succinate (Metoprolol Succinate Xl 25 Mg Tabcr) 50 mg PO QDAY [facility] Stop: 02/20/25 08:59 Midodrine (Midodrine 5 Mg Tablet) 15 mg PO TID REYNA Stop: 02/23/25 21:59 Last Admin: 01/25/25 05:55 Dose: 15 mg Ondansetron HCl (Ondansetron Inj 2 Mg/Ml Inj 2 Ml) 4 mg IVP Q6H PRN; Protocol PRN Reason: NAUSEA OR VOMITING Stop: 02/19/25 16:46 Last Admin: 01/24/25 19:52 Dose: 4 mg Oxycodone/Acetaminophen (Oxycodone/Apap 5/325 Tablet) 1 tab PO Q6H PRN PRN Reason: PAIN SCALE 4-6 (Moderate Stop: 01/25/25 16:46 Last Admin: 01/22/25 20:58 Dose: 1 tab Pantoprazole Sodium (Pantoprazole Inj 40 Mg Vial) 40 mg IVP BID [facility] Stop: 02/20/25 08:59 Last Admin: 01/25/25 08:22 Dose: 40 mg Pregabalin (Pregabalin 75 Mg Capsule) 150 mg PO BID [facility] Stop: 02/19/25 20:59 Last Admin: 01/25/25 08:23 Dose: 150 mg Primidone (Primidone 50 Mg Tablet) 250 mg PO QDAY [facility] Stop: 01/26/25 10:29 Last Admin: 01/25/25 08:22 Dose: 250 mg Primidone (Primidone 50 Mg Tablet) 50 mg PO HS [facility] Stop: 01/26/25 20:59 Last Admin: 01/24/25 22:29 Dose: 50 mg Spironolactone (Spironolactone 25 Mg Tablet) 25 mg PO BID [facility] Stop: 02/20/25 08:59 Last Admin: 01/25/25 08:23 Dose: 25 mg Zolpidem Tartrate (Zolpidem 5 Mg Tablet) 5 mg PO HS [facility] Stop: 02/23/25 20:59 Discontinued Medications Benzocaine (Benzocaine 20% (Hurricaine) [place] 1 Dose) 0 dose TOP X1 ONE Stop: 01/21/25 17:30 Diphenhydramine HCl (Diphenhydramine Inj 50 Mg/Ml Vial) 25 mg IVP PRNMRX1 PRN PRN Reason: MODERATE SEDATION Stop: 01/21/25 19:29 Fentanyl Citrate (Fentanyl Cit Inj 50 Mcg/Ml Amp 2ml) 50 mcg IVP Q2M PRN PRN Reason: MODERATE SEDATION Stop: 01/21/25 19:29 Ferrous Sulfate (Ferrous Sulf 325 Mg Tablet) 325 mg PO QDAY [facility] Stop: 02/20/25 08:59 Last Admin: 01/21/25 09:52 Dose: 325 mg Furosemide (Furosemide Inj 10 Mg/Ml 4ml Vial) 40 mg IVP BIDD REYNA Stop: 02/19/25 17:59 Last Admin: 01/21/25 06:50 Dose: 40 mg Furosemide (Furosemide Inj 10 Mg/Ml 4ml Vial) 20 mg IVP BIDD [facility] Stop: 02/20/25 17:59 Last Admin: 01/22/25 05:21 Dose: Not Given Glycerin (Glycerin, Adult 1 Ea Supp) 1 each CO X1 ONE Stop: 01/25/25 09:29 Hydromorphone HCl (Hydromorphone Inj 2 Mg/Ml Vial) 1 mg IVP Q6H PRN PRN Reason: PAIN Stop: 01/28/25 22:00 Hydromorphone HCl (Hydromorphone Inj 2 Mg/Ml Vial) 1 mg IVP Q6HR PRN PRN Reason: PAIN SCALE 7-10 (Severe Stop: 01/28/25 22:12 Hydromorphone HCl (Hydromorphone Inj 2 Mg/Ml Vial) 1 mg IVP X1 STA Stop: 01/23/25 22:35 Last Admin: 01/23/25 22:49 Dose: 1 mg Albumin Human (Albuminar-25 Ivpb) 12.5 gm in 50 mls @ 50 mls/hr IV X1 ONE Stop: 01/20/25 17:46 Ceftriaxone Sodium/Dextrose (Rocephin/D5w 1gm Iv Premix) 1 gm in 50 mls @ 100 mls/hr IV QDAY REYNA Stop: 01/27/25 16:59 Last Admin: 01/24/25 08:38 Dose: 100 mls/hr Albumin Human (Albuminar-25 Ivpb) 12.5 gm in 50 mls @ 50 mls/hr IV X1 ONE Stop: 01/21/25 09:59 Last Admin: 01/21/25 15:10 Dose: 50 mls/hr Magnesium Sulfate (Magnesium Sulfate Ivpb) 2 gm in 50 mls @ 25 mls/hr IV X1 ONE Stop: 01/21/25 10:51 Last Admin: 01/21/25 14:16 Dose: 25 mls/hr Albumin Human (Albuminar-25 Ivpb) 12.5 gm in 50 mls @ 50 mls/hr IV X1 ONE Stop: 01/21/25 11:58 Last Admin: 01/21/25 13:54 Dose: 50 mls/hr Albumin Human (Albuminar-25 Ivpb) 12.5 gm in 50 mls @ 50 mls/hr IV X1 ONE Stop: 01/21/25 15:38 Last Admin: 01/21/25 14:58 Dose: 50 mls/hr Magnesium Sulfate (Magnesium Sulfate Ivpb) 4 gm in 50 mls @ 12.5 mls/hr IV X1 ONE Stop: 01/22/25 12:33 Last Admin: 01/22/25 08:50 Dose: 12.5 mls/hr Albumin Human (Albuminar-5 Ivpb) 12.5 gm in 250 mls @ 100 mls/hr IV QDAY REYNA Stop: 01/26/25 08:52 Last Admin: 01/24/25 08:38 Dose: 100 mls/hr Albumin Human (Albuminar-25 Ivpb) 25 gm in 100 mls @ 100 mls/hr IV QDAY [facility] Stop: 01/25/25 11:29 Albumin Human (Albuminar-25 Ivpb) 25 gm in 100 mls @ 100 mls/hr IV QDAY@1130 [facility] Stop: 01/25/25 11:29 Last Infusion: 01/24/25 19:37 Dose: Infused Lactated Ringer's (Lactated Ringers) 500 mls @ 999 mls/hr IV .Q31M ONE Stop: 01/22/25 12:45 Last Admin: 01/22/25 12:09 Dose: 999 mls/hr Sodium Chloride (Ns) 250 mls @ 999 mls/hr IV .Q16M ONE Stop: 01/24/25 00:50 Last Admin: 01/24/25 00:53 Dose: 999 mls/hr Sodium Chloride (Ns) 250 mls @ 999 mls/hr IV .Q16M ONE Stop: 01/24/25 08:42 Last Admin: 01/24/25 08:39 Dose: 999 mls/hr Sodium Chloride (Ns) 250 mls @ 999 mls/hr IV .Q16M ONE Stop: 01/24/25 12:00 Last Admin: 01/24/25 12:44 Dose: 999 mls/hr Piperacillin/Tazobactam/Dextrose (Zosyn) 3.375 gm in 50 mls @ 100 mls/hr IV X1 ONE Stop: 01/24/25 14:44 Last Admin: 01/24/25 17:08 Dose: 100 mls/hr Magnesium Sulfate (Magnesium Sulfate Ivpb) 2 gm in 50 mls @ 25 mls/hr IV X1 ONE Stop: 01/24/25 18:17 Last Infusion: 01/24/25 21:28 Dose: Infused Sodium Chloride (Ns) 250 mls @ 999 mls/hr IV .Q16M ONE Stop: 01/24/25 23:46 Last Admin: 01/24/25 23:51 Dose: 999 mls/hr Lactulose (Lactulose Syrup 20 Gm/30 Ml Udc) 20 gm PO X1 ONE; Protocol Stop: 01/22/25 17:14 Last Admin: 01/22/25 17:26 Dose: 20 gm Lactulose (Lactulose Syrup 20 Gm/30 Ml Udc) 20 gm PO X1 ONE; Protocol Stop: 01/23/25 11:54 Last Admin: 01/23/25 12:33 Dose: 20 gm Lactulose (Lactulose Syrup 20 Gm/30 Ml Udc) 20 gm PO TID REYNA; Protocol Stop: 02/23/25 05:59 Last Admin: 01/24/25 05:37 Dose: 20 gm Lactulose (Lactulose Syrup 20 Gm/30 Ml Udc) 20 gm PO X1 ONE; Protocol Stop: 01/23/25 22:13 Last Admin: 01/23/25 22:49 Dose: 20 gm Lactulose (Lactulose Syrup 20 Gm/30 Ml Udc) 10 gm PO TID REYNA; Protocol Stop: 02/23/25 13:59 Lidocaine (Lidocaine 5% 1 Patch) 1 patch TOP X1 ONE Stop: 01/21/25 10:23 Last Admin: 01/21/25 11:22 Dose: 1 patch Midazolam HCl (Midazolam Inj 1 Mg/Ml Vial 2 Ml) 2 mg IVP Q2M PRN PRN Reason: Moderate Sedation Stop: 01/21/25 19:29 Midodrine (Midodrine 5 Mg Tablet) 10 mg PO TID REYNA Stop: 02/21/25 08:59 Last Admin: 01/24/25 14:08 Dose: 10 mg Pantoprazole Sodium (Pantoprazole Inj 40 Mg Vial) 40 mg IVP QDAY REYNA Stop: 02/19/25 16:59 Last Admin: 01/20/25 18:37 Dose: 40 mg Potassium Phos/Sodium Phos (Naph,[facility] Mbdb 1 Packet (1.5 Gm)) 1 packet PO X1 ONE Stop: 01/21/25 08:52 Last Admin: 01/21/25 09:00 Dose: Not Given Primidone (Primidone 50 Mg Tablet) 1 mg PO HS [facility] Stop: 01/26/25 20:59 Sodium Polystyrene Sulfonate (Sod Polystyrene Sulfon Susp 15 Gm/60 Ml Btl) 30 gm PO X1 ONE Stop: 01/24/25 07:28 Last Admin: 01/24/25 07:42 Dose: 30 gm Zolpidem Tartrate (Zolpidem 5 Mg Tablet) 5 mg PO X1 ONE Stop: 01/21/25 20:20 Last Admin: 01/21/25 20:43 Dose: 5 mg Zolpidem Tartrate (Zolpidem 5 Mg Tablet) 5 mg PO X1 ONE Stop: 01/22/25 22:14 Last Admin: 01/22/25 22:47 Dose: 5 mg Zolpidem Tartrate (Zolpidem 5 Mg Tablet) 5 mg PO X1 ONE Stop: 01/24/25 01:04 Last Admin: 01/24/25 01:24 Dose: 5 mg Zolpidem Tartrate (Zolpidem 5 Mg Tablet) 5 mg PO HS [facility] Stop: 02/23/25 20:59 Zolpidem Tartrate (Zolpidem 5 Mg Tablet) 5 mg PO X1 ONE Stop: 01/25/25 01:24 Last Admin: 01/25/25 01:27 Dose: 5 mg Assessment & Plan Plan Ms. Mario is a 64 year-old female with PMHx of alcoholic liver cirrhosis, COPD on home O2, hypothyroidism, asthma, HTN, T2DM and anxiety who presented to the ED with worsening ascites and abdominal discomfort. Admitted under observation for therapeutic/diagnostic paracentesis. Nephrology consulted for management of DONNA. # Acute Kidney Injury Patient noted to have DONNA with Cr 2.1, now at 3.0 (baseline around 1.0). Suspect due abdominal compression or hepatorenal syndrome given cirrhosis with continued ascites. Also possibly due to too much volume being taken off too quickly during paracentesis. Renal US raises concern about potential ckd. Currently making urine. -will hold fluids and diuretics -plan to perform paracentesis with albumin to decompress the abdomen and decrease the intra-abdominal pressure -trend CMP -renally dose medications #Acute encephalopathy?new onset #New onset fever, hypotension, low O2 saturations, tachycardia #?Presyncope #?Pulmonary embolism #?Seizures #Hyperkalemia, improved Significant ascites Alcoholic liver cirrhosis Microcytic anemia (stable) Grade 1 esophageal varices Mild thrombocytopenia (resolved) HTN Hypothyroidism Asymptomatic sinus bradycardia COPD, asthma Chronic respiratory failure, on home 2 L O2 T2DM Elevated lipase Electrolyte abnormalities Anxiety manage per primary team Thank you for allowing us be apart of the care team for Ms. Mario Patient plan of care was discussed with the attending physician, Dr. Mike Street MD PGY-1 Internal Medicine Attending Provider Attestation/Addendum Patient seen and examined with resident physician Dr. Street. Note reviewed, agree with findings and recommendations with changes made. Patient with longstanding history of liver cirrhosis manifested with ascites, hepatic encephalopathy. Clinically patient seems to have significant ascites. DONNA-multifactorial(prerenal state from abdominal compression syndrome due to massive ascites versus hepatorenal syndrome type I) Patient making adequate urine . Spoke to primary team to go ahead and proceed with a large-volume paracentesis and to avoid hypotension to give albumin. If no improvement in mentation or any azotemia-might need renal replacement therapy. Will reeval tomorrow. Thank you Brandon for allowing me to participate in the care of Ms. Mario.
[2025-01-25 10:33] LABS: Folate 8.44 ng/mL (>5.38); Vitamin B12 774 pg/mL (211-911)
[2025-01-25 11:17] LABS: Lactate (Lactic Acid) 2.9 mMol/L (0.4-2.0)
[2025-01-25 11:59] LABS: Reflex Lactate? Y
[2025-01-25 12:11] LABS: Free T3 0.8 pg/mL (2.3-4.2); Free T4 (Free Thyroxine) 1.15 ng/dL (0.89-1.76)
[2025-01-25] MEDS: LACTULOSE SYRUP 20 GM/30 ML UDC 10 GM PO (12:11)
[2025-01-25] MEDS: SODIUM CHLORIDE 0.9% 1000 ML 1,000 ML 999 ML IV (12:11)
--- NOTE | 2025-01-25 12:48 | PD.RESPRO ---
Documentation for date of: 01/25/25 Subjective Subjective Interval history: Patient seen at bedside, reports lethargy, continued myoclonic jerking movements that are worse when she tries to move her arms or legs and improved at rest. Daughter at bedside. Exam Vital Signs Temp Pulse Resp BP Pulse Ox O2 Del Method O2 Flow Rate 98.0 F 76 14 113/78 94 L Nasal Cannula 3 01/25/25 08:00 01/25/25 08:23 01/25/25 08:00 01/25/25 08:23 01/25/25 08:00 01/25/25 08:00 01/25/25 08:00 Narrative Exam General: No acute distress, lying in bed Eye: PERRL, EOMI, normal conjunctiva, no scleral icterus HENT: Normocephalic, atraumatic, hearing intact to conversation at normal volume, moist oral mucosa Neck: Supple, non-tender, no JVD, no lymphadenopathy Lungs: Non-labored respirations, symmetric chest rise Heart: Peripheral pulses intact bilaterally Abdomen: Distended Musculoskeletal: Normal range of motion and strength Skin: Skin is warm, dry, no rashes or lesions. Psychiatric: Cooperative, appropriate mood and affect Neurologic: Mental status: Orientation: Oriented to person, place, time, and situation Communication: Patient is cooperative and can follow simple instructions Language: Speech fluent, normal rate and volume, comprehension intact Cranial nerves: CN II: Visual suh intact CN III: Pupils equal, round, and reactive to light CN III, IV, : No gaze deviation, no nystagmus Horizontal pursuit: intact Vertical pursuit: intact Ptosis: none CN V: Facial sensation to light touch intact bilaterally at the forehead, cheeks, and jaw line CN VII: Face symmetric, no facial droop appreciated CN VIII: Able to hear and respond to conversation at normal volume, intact to finger rub CN IX, X: Palate elevation symmetric, uvula midline CN XI: Head turn and shoulder shrug strong, symmetric bilaterally CN XII: Normal tongue protrusion without deviation, no fasciculations Motor: Normal bulk and tone No atrophy Patient has continuous myoclonic jerking in bilateral upper and lower extremities worse on extension/activity, improved with rest Muscle strength: Muscle testing limited due to myoclonic jerking and generalized weakness. Patient able to lift extremities against gravity but not sustained for any length of time Sensory: RUE: Light touch intact LUE: Light touch intact RLE: Light touch intact LLE: Light touch intact Reflexes: Biceps (C5-6): R 2+ L 2+ Brachioradialis (C5-6): R 2+ L 2+ Triceps (C7-8): R 2+ L 2+ Patellae (L3-4): R 2+ L 2+ Achilles (S1-2):R 2+ L 2+ Objective Labs 01/27/25 05:51 01/27/25 05:51 Labs: Laboratory Results - last 24 hr 01/24/25 01/24/25 01/24/25 11:43 15:24 16:45 WBC RBC Hgb Hct MCV MCH MCHC RDW Std Deviation Plt Count Neut % (Auto) Lymph % (Auto) [place] % (Auto) Eos % (Auto) Baso % (Auto) Neut # (Auto) Lymph # (Auto) [place] # (Auto) Eos # (Auto) Baso # (Auto) Immature Gran # (Auto) Absolute Nucleated RBC Immature Gran % Nucleated RBC % PT 13.0 H INR 1.2 APTT 30.5 D-Dimer > 3820 H Sodium 140 Potassium 4.1 D Chloride 102 Carbon Dioxide 27.7 Anion Gap 10 BUN 30 H Creatinine 2.4 H Estim Creat Clear Calc 24.1 L eGFR 22 L BUN/Creatinine Ratio 13 Glucose 158 H Calculated Osmolality 288 Lactic Acid Calcium 8.9 Corrected Calcium 8.9 Phosphorus 3.7 Magnesium Total Bilirubin AST ALT Alkaline Phosphatase Ammonia < 10 L Troponin I < 0.002 Total Protein Albumin 4.0 Globulin Albumin/Globulin Ratio Vitamin B12 Folate Free T4 Free T3 pg/dL Ur Random Creatinine Ur Random Sodium 01/25/25 01/25/25 01/25/25 00:15 05:56 08:29 WBC 9.8 D RBC 3.78 L Hgb 9.2 L Hct 29.3 L MCV 78 L MCH 24.3 L MCHC 31.4 RDW Std Deviation 43.6 Plt Count 145 D Neut % (Auto) 79 Lymph % (Auto) 9 L [place] % (Auto) 8 Eos % (Auto) 3 Baso % (Auto) 1 Neut # (Auto) 7.7 Lymph # (Auto) 0.9 L [place] # (Auto) 0.8 Eos # (Auto) 0.3 Baso # (Auto) 0.1 Immature Gran # (Auto) 0.07 H Absolute Nucleated RBC 0.00 Immature Gran % 1 H Nucleated RBC % 0 PT INR APTT D-Dimer Sodium 138 Potassium 4.3 Chloride 98 Carbon Dioxide 26.3 Anion Gap 14 BUN 42 H Creatinine 3.0 H D Estim Creat Clear Calc 19.3 L eGFR 17 L BUN/Creatinine Ratio 14 Glucose 142 H Calculated Osmolality 288 Lactic Acid 2.9 H Calcium 9.1 Corrected Calcium 9.1 Phosphorus 5.9 H Magnesium 2.0 Total Bilirubin 1.3 H D AST 37 H ALT 22 Alkaline Phosphatase 165 H Ammonia Troponin I Total Protein 6.5 Albumin 4.0 Globulin 2.5 Albumin/Globulin Ratio 1.6 Vitamin B12 774 Folate 8.44 Free T4 Free T3 pg/dL Ur Random Creatinine 136 H Ur Random Sodium 57.0 01/25/25 01/25/25 10:52 11:19 WBC RBC Hgb Hct MCV MCH MCHC RDW Std Deviation Plt Count Neut % (Auto) Lymph % (Auto) [place] % (Auto) Eos % (Auto) Baso % (Auto) Neut # (Auto) Lymph # (Auto) [place] # (Auto) Eos # (Auto) Baso # (Auto) Immature Gran # (Auto) Absolute Nucleated RBC Immature Gran % Nucleated RBC % PT INR APTT D-Dimer Sodium Potassium Chloride Carbon Dioxide Anion Gap BUN Creatinine Estim Creat Clear Calc eGFR BUN/Creatinine Ratio Glucose Calculated Osmolality Lactic Acid 2.9 H Calcium Corrected Calcium Phosphorus Magnesium Total Bilirubin AST ALT Alkaline Phosphatase Ammonia Troponin I Total Protein Albumin Globulin Albumin/Globulin Ratio Vitamin B12 Folate Free T4 1.15 Free T3 pg/dL 0.8 L Ur Random Creatinine Ur Random Sodium Quality Measures Quality Measures VTE prophylaxis Advance care planning discussed with:: patient and child Assessment & Plan Assessment Current Active Medications: Generic Name Dose Route Start Last Admin Trade Name Freq PRN Reason Stop Dose Admin Acetaminophen 650 mg 01/20/25 16:47 01/24/25 11:52 Acetaminophen 325 Mg Tablet PO 02/19/25 16:46 650 mg Q6H PRN Administration PAIN SCALE 1-3 (mild Acetaminophen 650 mg 01/20/25 16:47 01/24/25 19:47 Acetaminophen 325 Mg Tablet PO 02/19/25 16:46 650 mg Q6H PRN Administration Fever >100.4 Hydrocodone Bitart/Acetaminophen 1 tab 01/20/25 16:47 01/24/25 17:20 Hydrocodone/Apap 10/325 Tab PO 01/25/25 16:46 1 tab Q4HR PRN Administration PAIN SCALE 7-10 (Severe Albuterol/Ipratropium 3 ml 01/20/25 18:38 Albuterol/Ipratropium (Duoneb) Rt Lisset 3 Ml Nebu INH 02/19/25 18:37 Q6HRRT PRN Wheezing Dextrose 25 ml 01/20/25 18:39 Dextrose 50%-Water Inj 50 Ml Syringe IV 02/19/25 18:38 Q15MIN PRN BG 50-70 responsive npo pt Dextrose 50 ml 01/20/25 18:39 Dextrose 50%-Water Inj 50 Ml Syringe IV 02/19/25 18:38 Q15MIN PRN BG <50 OR BG <70 & pt unresponsive Docusate Sodium 200 mg 01/24/25 21:00 01/25/25 08:23 Docusate Sod 100 Mg Capsule PO 02/23/25 20:59 200 mg QDAY REYNA Administration Protocol Escitalopram Oxalate 20 mg 01/24/25 16:30 01/25/25 08:23 Escitalopram Oxalate 10 Mg Tablet PO 02/23/25 16:29 20 mg QDAY REYNA Administration Ferrous Sulfate 325 mg 01/21/25 11:30 01/25/25 08:23 Ferrous Sulf 325 Mg Tablet PO 02/20/25 11:29 325 mg QOD REYNA Administration Furosemide 20 mg 01/22/25 18:00 01/24/25 05:38 Furosemide Inj 10 Mg/Ml Vial 2 Ml IVP 02/20/25 17:59 20 mg BIDD REYNA Administration Glucagon 1 mg 01/20/25 18:39 Glucagon Inj 1 Mg Vial IM Q15MIN PRN BG <70, and no IV access Glycerin 1 each 01/24/25 20:53 01/25/25 01:20 Glycerin, Adult 1 Ea Supp [place] 02/23/25 20:52 1 each QDAY PRN Administration CONSTIPATION Heparin Sodium (Porcine) 5,000 unit 01/20/25 21:00 01/25/25 08:22 Heparin Sod Inj 5000 Unit/Ml Vial SC 02/03/25 20:59 5,000 unit BID REYNA Administration Hydromorphone HCl 1 mg 01/24/25 00:10 01/24/25 19:46 Hydromorphone Inj 2 Mg/Ml Vial IVP 01/29/25 00:09 1 mg Q6H PRN Administration BREAKTHROUGH PAIN (SEVERE) Protocol Piperacillin/Tazobactam/Dextrose 3.375 gm in 50 mls @ 12.5 mls/hr 01/24/25 22:00 01/25/25 05:56 Zosyn IV 01/31/25 21:59 12.5 mls/hr Q8HR REYNA Administration Protocol Ibuprofen 400 mg 01/24/25 14:01 01/24/25 14:09 Ibuprofen Tab 400 Mg Tablet PO 02/23/25 14:00 400 mg Q6HR PRN Administration Pain 4-6 Or Fever > 100.4 Protocol Insulin Human Lispro 0 unit 01/20/25 21:00 01/25/25 11:54 Insulin Lispro (Admelog) 1 Unit/0.01 Ml Unit SC 02/19/25 20:59 Not Given ACHS REYNA Protocol Lactulose 20 gm 01/24/25 14:00 01/25/25 05:56 Lactulose Syrup 20 Gm/30 Ml Udc PO 02/23/25 13:59 20 gm TID REYNA Administration Protocol Levothyroxine Sodium 112 mcg 01/21/25 06:00 01/25/25 05:56 Levothyroxine Sodium 112 Mcg Tablet PO 02/20/25 05:59 112 mcg ACBR REYNA Administration Lidocaine 1 patch 01/21/25 10:22 Lidocaine 5% 1 Patch TOP 02/20/25 10:21 UD PRN Back pain Protocol Loratadine 10 mg 01/21/25 09:00 01/25/25 08:23 Loratadine 10 Mg Tablet PO 02/20/25 08:59 10 mg QDAY REYNA Administration Metoprolol Succinate 50 mg 01/21/25 09:00 Metoprolol Succinate Xl 25 Mg Tabcr PO 02/20/25 08:59 QDAY REYNA Midodrine 15 mg 01/24/25 22:00 01/25/25 05:55 Midodrine 5 Mg Tablet PO 02/23/25 21:59 15 mg TID REYNA Administration Ondansetron HCl 4 mg 01/20/25 16:47 01/24/25 19:52 Ondansetron Inj 2 Mg/Ml Inj 2 Ml IVP 02/19/25 16:46 4 mg Q6H PRN Administration NAUSEA OR VOMITING Protocol Oxycodone/Acetaminophen 1 tab 01/20/25 16:47 01/22/25 20:58 Oxycodone/Apap 5/325 Tablet PO 01/25/25 16:46 1 tab Q6H PRN Administration PAIN SCALE 4-6 (Moderate Pantoprazole Sodium 40 mg 01/21/25 09:00 01/25/25 08:22 Pantoprazole Inj 40 Mg Vial IVP 02/20/25 08:59 40 mg BID REYNA Administration Pregabalin 150 mg 01/20/25 21:00 01/25/25 08:23 Pregabalin 75 Mg Capsule PO 02/19/25 20:59 150 mg BID REYNA Administration Primidone 250 mg 01/21/25 10:30 01/25/25 08:22 Primidone 50 Mg Tablet PO 01/26/25 10:29 250 mg QDAY REYNA Administration Primidone 50 mg 01/21/25 21:00 01/24/25 22:29 Primidone 50 Mg Tablet PO 01/26/25 20:59 50 mg HS REYNA Administration Spironolactone 25 mg 01/21/25 09:00 01/25/25 08:23 Spironolactone 25 Mg Tablet PO 02/20/25 08:59 25 mg BID REYNA Administration Zolpidem Tartrate 5 mg 01/25/25 21:00 Zolpidem 5 Mg Tablet PO 02/23/25 20:59 HS REYNA Plan # Bilateral tremors vs myoclonic jerking vs seizure # AMS In the setting of alcohol induced liver cirrhosis, DONNA, esophageal varices, COPD on home 2 L O2, type 2 diabetes, mild hyperkalemia Patient has had multiple episodes of altered mental status. On 01/22 patient was obtunded with generalized weakness stroke alert was called and symptoms resolved without intervention. NIHSS was [address] head was negative for hemorrhage. Another rapid response was called on 01/24 and 1130 for altered mental status with AO x 0, bilateral tremors concerning for seizures. Vitals reviewed and were WNL. Glucose was WNL. Head CT showed no acute findings. EKG showed sinus tachycardia. Ammonia was <10, troponin was negative. Remained hemodynamically stable otherwise. Upon exam patient exhibited bilateral upper and lower extremity myoclonic jerking without altered mental status Labs significant for microcytic anemia, mildly elevated potassium at 5.2 now within normal limits, elevated creatinine at 2.1, AST elevated 36, alk phos elevated 149. Ammonia, B12, folate, TSH, free T4 WNL. A1c 7.7 from 08/2024. Free T3 low 0.8 Patient has had multiple episodes of fevers with Tmax at 102.8 today. Patient also required up titration of supplemental O2 now saturating appropriately on 3 L oxygen. DDX: Seizures, electrolyte abnormalities, Wernicke's encephalopathy, DONNA/uremia, decompensated cirrhosis Plan: - Pending EEG read - Hold metoclopromide - Continue home Escitalopram and Primidone - Pending total T3, peritoneal fluid cx, blood cx - Management of abnormal electrolytes per primary - Management of DONNA per primary - Encourage patient to have BM # Constipation KUB showed large stool in rectosigmoid, few air distended small bowel loop Patient had one BM today, soft in consistency Plan: - Encourage BM #DONNA #Prerenal Likely secondary to hypotension Baseline Cr 0.9 Plan: - Managed per primary # Decompensated alcoholic liver cirrhosis # Grade 1 esophageal varices Removed 8.7L from peritoneal fluid Abdominal CT showed cirrhosis, significant ascites, prominent splenomegaly, anasarca, esophageal and perigastric varices, no bowel obstruction. Ultrasound gallbladder showed distended gallbladder, negative for cholelithiasis, mildly thickened gallbladder wall likely from ascites. Paracentesis analysis: WBC 202, peritoneal RBC 1000, total protein 4, albumin 2.2, LD H108, glucose 137, amylase 29 SAAG < 1.1 g/dL Portal hypertension is not necessarily the cause of ascites. Plan: - Management per primary - repeat paracentesis 01/26 # Hypothyroidism TSH 2.33 WNL Free T4 1.15 WNL Free T3 0.8 low Home med: Liothyronine 20 mcg daily, levothyroxine 112 mcg daily Plan: - Management per primary - Liothyronine 10 mcg daily, Levothyroxine 112 mcg daily # Hypertension # Asymptomatic sinus bradycardia Currently BP soft, normocardic EKG shows sinus bradycardia, likely cirrhosis related on oral dysfunction versus beta blockers Plan: - Management per primary # COPD # Asthma # Chronic respiratory failure, on home 2 L O2 No signs of asthma or COPD exacerbation Plan: - Management per primary # T2DM A1c 7.7 from 08/2024. Plan: - Management per primary # Anxiety Plan: - Management per primary - continue home Pregabalin Plan discussed with Dr. Eufemia Bernard, PGY1 Attending Provider Attestation/Addendum I personally have seen and examined the patient at the bedside and I agreed with the resident's findings, assessment and plan of care. Continue to monitor her mental status with regards to hepatic encephalopathy, myoclonic jerks and tremors. Continue with the current management.
[2025-01-25 12:54] LABS: Hepatitis A Antibody IgM Non Reactive (Non React); Hepatitis B Core Antibody IgM Non Reactive (Non React); Hepatitis B Surface Antigen Non Reactive (Non React); Hepatitis C Antibody Non Reactive (Non React)
[2025-01-25 13:06] LABS: T4 (Thyroxine) 8.2 mcg/dL (4.5-10.9)
--- NOTE | 2025-01-25 13:51 | PD.RESPRO ---
Documentation for date of: 01/25/25 Exam Vital Signs Temp Pulse Resp BP Pulse Ox O2 Del Method O2 Flow Rate 98.0 F 76 14 113/78 94 L Nasal Cannula 3 01/25/25 08:00 01/25/25 08:23 01/25/25 08:00 01/25/25 08:23 01/25/25 08:00 01/25/25 08:00 01/25/25 08:00 Objective Labs 01/25/25 08:29 01/25/25 08:29 Labs: Laboratory Results - last 24 hr 01/24/25 01/24/25 01/25/25 15:24 16:45 00:15 WBC RBC Hgb Hct MCV MCH MCHC RDW Std Deviation Plt Count Neut % (Auto) Lymph % (Auto) [place] % (Auto) Eos % (Auto) Baso % (Auto) Neut # (Auto) Lymph # (Auto) [place] # (Auto) Eos # (Auto) Baso # (Auto) Immature Gran # (Auto) Absolute Nucleated RBC Immature Gran % Nucleated RBC % Sodium 140 Potassium 4.1 D Chloride 102 Carbon Dioxide 27.7 Anion Gap 10 BUN 30 H Creatinine 2.4 H Estim Creat Clear Calc 24.1 L eGFR 22 L BUN/Creatinine Ratio 13 Glucose 158 H Calculated Osmolality 288 Lactic Acid Calcium 8.9 Corrected Calcium 8.9 Phosphorus 3.7 Magnesium Total Bilirubin AST ALT Alkaline Phosphatase Ammonia < 10 L Total Protein Albumin 4.0 Globulin Albumin/Globulin Ratio Vitamin B12 Folate Free T4 Thyroxine (T4) Free T3 pg/dL Ur Random Creatinine 136 H Ur Random Sodium 57.0 Hepatitis A IgM Ab Hep Bs Antigen Hep B Core IgM Ab Hepatitis C Antibody 01/25/25 01/25/25 01/25/25 05:56 08:29 10:52 WBC 9.8 D RBC 3.78 L Hgb 9.2 L Hct 29.3 L MCV 78 L MCH 24.3 L MCHC 31.4 RDW Std Deviation 43.6 Plt Count 145 D Neut % (Auto) 79 Lymph % (Auto) 9 L [place] % (Auto) 8 Eos % (Auto) 3 Baso % (Auto) 1 Neut # (Auto) 7.7 Lymph # (Auto) 0.9 L [place] # (Auto) 0.8 Eos # (Auto) 0.3 Baso # (Auto) 0.1 Immature Gran # (Auto) 0.07 H Absolute Nucleated RBC 0.00 Immature Gran % 1 H Nucleated RBC % 0 Sodium 138 Potassium 4.3 Chloride 98 Carbon Dioxide 26.3 Anion Gap 14 BUN 42 H Creatinine 3.0 H D Estim Creat Clear Calc 19.3 L eGFR 17 L BUN/Creatinine Ratio 14 Glucose 142 H Calculated Osmolality 288 Lactic Acid 2.9 H 2.9 H Calcium 9.1 Corrected Calcium 9.1 Phosphorus 5.9 H Magnesium 2.0 Total Bilirubin 1.3 H D AST 37 H ALT 22 Alkaline Phosphatase 165 H Ammonia Total Protein 6.5 Albumin 4.0 Globulin 2.5 Albumin/Globulin Ratio 1.6 Vitamin B12 774 Folate 8.44 Free T4 Thyroxine (T4) Free T3 pg/dL Ur Random Creatinine Ur Random Sodium Hepatitis A IgM Ab Non Reactive Hep Bs Antigen Non Reactive Hep B Core IgM Ab Non Reactive Hepatitis C Antibody Non Reactive 01/25/25 11:19 WBC RBC Hgb Hct MCV MCH MCHC RDW Std Deviation Plt Count Neut % (Auto) Lymph % (Auto) [place] % (Auto) Eos % (Auto) Baso % (Auto) Neut # (Auto) Lymph # (Auto) [place] # (Auto) Eos # (Auto) Baso # (Auto) Immature Gran # (Auto) Absolute Nucleated RBC Immature Gran % Nucleated RBC % Sodium Potassium Chloride Carbon Dioxide Anion Gap BUN Creatinine Estim Creat Clear Calc eGFR BUN/Creatinine Ratio Glucose Calculated Osmolality Lactic Acid Calcium Corrected Calcium Phosphorus Magnesium Total Bilirubin AST ALT Alkaline Phosphatase Ammonia Total Protein Albumin Globulin Albumin/Globulin Ratio Vitamin B12 Folate Free T4 1.15 Thyroxine (T4) 8.2 Free T3 pg/dL 0.8 L Ur Random Creatinine Ur Random Sodium Hepatitis A IgM Ab Hep Bs Antigen Hep B Core IgM Ab Hepatitis C Antibody Quality Measures Quality Measures VTE prophylaxis Assessment & Plan Assessment Current Active Medications: Generic Name Dose Route Start Last Admin Trade Name Freq PRN Reason Stop Dose Admin Acetaminophen 650 mg 01/20/25 16:47 01/24/25 11:52 Acetaminophen 325 Mg Tablet PO 02/19/25 16:46 650 mg Q6H PRN Administration PAIN SCALE 1-3 (mild Acetaminophen 650 mg 01/20/25 16:47 01/24/25 19:47 Acetaminophen 325 Mg Tablet PO 02/19/25 16:46 650 mg Q6H PRN Administration Fever >100.4 Hydrocodone Bitart/Acetaminophen 1 tab 01/20/25 16:47 01/24/25 17:20 Hydrocodone/Apap 10/325 Tab PO 01/25/25 16:46 1 tab Q4HR PRN Administration PAIN SCALE 7-10 (Severe Albuterol/Ipratropium 3 ml 01/20/25 18:38 Albuterol/Ipratropium (Duoneb) Rt Lisset 3 Ml Nebu INH 02/19/25 18:37 Q6HRRT PRN Wheezing Dextrose 25 ml 01/20/25 18:39 Dextrose 50%-Water Inj 50 Ml Syringe IV 02/19/25 18:38 Q15MIN PRN BG 50-70 responsive npo pt Dextrose 50 ml 01/20/25 18:39 Dextrose 50%-Water Inj 50 Ml Syringe IV 02/19/25 18:38 Q15MIN PRN BG <50 OR BG <70 & pt unresponsive Docusate Sodium 200 mg 01/24/25 21:00 01/25/25 08:23 Docusate Sod 100 Mg Capsule PO 02/23/25 20:59 200 mg QDAY REYNA Administration Protocol Escitalopram Oxalate 20 mg 01/24/25 16:30 01/25/25 08:23 Escitalopram Oxalate 10 Mg Tablet PO 02/23/25 16:29 20 mg QDAY REYNA Administration Ferrous Sulfate 325 mg 01/21/25 11:30 01/25/25 08:23 Ferrous Sulf 325 Mg Tablet PO 02/20/25 11:29 325 mg QOD REYNA Administration Furosemide 20 mg 01/22/25 18:00 01/24/25 05:38 Furosemide Inj 10 Mg/Ml Vial 2 Ml IVP 02/20/25 17:59 20 mg BIDD REYNA Administration Glucagon 1 mg 01/20/25 18:39 Glucagon Inj 1 Mg Vial IM Q15MIN PRN BG <70, and no IV access Glycerin 1 each 01/24/25 20:53 01/25/25 01:20 Glycerin, Adult 1 Ea Supp [place] 02/23/25 20:52 1 each QDAY PRN Administration CONSTIPATION Heparin Sodium (Porcine) 5,000 unit 01/20/25 21:00 01/25/25 08:22 Heparin Sod Inj 5000 Unit/Ml Vial SC 02/03/25 20:59 5,000 unit BID REYNA Administration Hydromorphone HCl 1 mg 01/24/25 00:10 01/24/25 19:46 Hydromorphone Inj 2 Mg/Ml Vial IVP 01/29/25 00:09 1 mg Q6H PRN Administration BREAKTHROUGH PAIN (SEVERE) Protocol Piperacillin/Tazobactam/Dextrose 3.375 gm in 50 mls @ 12.5 mls/hr 01/24/25 22:00 01/25/25 05:56 Zosyn IV 01/31/25 21:59 12.5 mls/hr Q8HR REYNA Administration Protocol Ibuprofen 400 mg 01/24/25 14:01 01/24/25 14:09 Ibuprofen Tab 400 Mg Tablet PO 02/23/25 14:00 400 mg Q6HR PRN Administration Pain 4-6 Or Fever > 100.4 Protocol Insulin Human Lispro 0 unit 01/20/25 21:00 01/25/25 11:54 Insulin Lispro (Admelog) 1 Unit/0.01 Ml Unit SC 02/19/25 20:59 Not Given ACHS REYNA Protocol Lactulose 20 gm 01/24/25 14:00 01/25/25 05:56 Lactulose Syrup 20 Gm/30 Ml Udc PO 02/23/25 13:59 20 gm TID REYNA Administration Protocol Levothyroxine Sodium 112 mcg 01/21/25 06:00 01/25/25 05:56 Levothyroxine Sodium 112 Mcg Tablet PO 02/20/25 05:59 112 mcg ACBR REYNA Administration Lidocaine 1 patch 01/21/25 10:22 Lidocaine 5% 1 Patch TOP 02/20/25 10:21 UD PRN Back pain Protocol Loratadine 10 mg 01/21/25 09:00 01/25/25 08:23 Loratadine 10 Mg Tablet PO 02/20/25 08:59 10 mg QDAY REYNA Administration Metoprolol Succinate 50 mg 01/21/25 09:00 Metoprolol Succinate Xl 25 Mg Tabcr PO 02/20/25 08:59 QDAY REYNA Midodrine 15 mg 01/24/25 22:00 01/25/25 05:55 Midodrine 5 Mg Tablet PO 02/23/25 21:59 15 mg TID REYNA Administration Ondansetron HCl 4 mg 01/20/25 16:47 01/24/25 19:52 Ondansetron Inj 2 Mg/Ml Inj 2 Ml IVP 02/19/25 16:46 4 mg Q6H PRN Administration NAUSEA OR VOMITING Protocol Pantoprazole Sodium 40 mg 01/21/25 09:00 01/25/25 08:22 Pantoprazole Inj 40 Mg Vial IVP 02/20/25 08:59 40 mg BID REYNA Administration Pregabalin 150 mg 01/20/25 21:00 01/25/25 08:23 Pregabalin 75 Mg Capsule PO 02/19/25 20:59 150 mg BID REYNA Administration Primidone 250 mg 01/21/25 10:30 01/25/25 08:22 Primidone 50 Mg Tablet PO 01/26/25 10:29 250 mg QDAY REYNA Administration Primidone 50 mg 01/21/25 21:00 01/24/25 22:29 Primidone 50 Mg Tablet PO 01/26/25 20:59 50 mg HS REYNA Administration Spironolactone 25 mg 01/21/25 09:00 01/25/25 08:23 Spironolactone 25 Mg Tablet PO 02/20/25 08:59 25 mg BID REYNA Administration Zolpidem Tartrate 5 mg 01/25/25 21:00 Zolpidem 5 Mg Tablet PO 02/23/25 20:59 HS REYNA
--- NOTE | 2025-01-25 13:57 | ESPR_ITS ---
<Statement entered by Keith Daly MD - 01/25/25 18:56> In summary 64-year-old female with PMHx of alcoholic liver cirrhosis, COPD on home O2, hypothyroidism, asthma, HTN, T2DM, and anxiety, admitted for acute decompensated liver cirrhosis with abdominal ascites. She had 8.4 L peritoneal fluid removed on admission, and was continued on LACTULOSE and prophylactic ANTIBIOTICS. Initially she did well after procedure however. Since admission she's had multiple rapid for altered mental status, and possibly acute onset generalized jerking and weakness. She is on multiple anxiolytics including LYRICA, SSRI, and AMBIEN. Neurology was consulted and resumed her home meds. There is an EEG which was taken but pending reads. Additionally, she seems to have developed DONNA, likely ATN or hepatorenal with worsening renal function. This is accompanied by lactic acidosis, likely combined type A/B given liver failure and hypotension has been really difficult to manage despite MIDODRINE and intermittent fluid resuscitation, currently diuresis on hold. Her case is complicated by possible thyroid hormone derangement. She is on home LEVOTHYROXINE 112 mcg and LIOTHYRONINE 20 mEq daily, which is excessively high dose for her weight. I spoke with her PCP office, who confirmed correct dose. Patient also admits to the same dose. TSH was normal, T4 was normal, however T3 was significantly low. We resumed T3 at half the dose (10 mcg daily) for concern for withdrawal. In terms of the mental status, she appears slightly better today. We have GI on board. Ammonia was normal on multiple repeats. We increased dose of LACTULOSE given constipation. RIFAXIMIN added just in case. Follow-up with a.m. [facility] to check for hypercapnia which is less likely given CO2 has been normal. Additionally, consultants are in agreement for repeat paracentesis, maximum 5 L to be removed tomorrow morning. Case was discussed with attending physician. Keith Daly DO PGY II This document was transcribed using voice recognition technology. Minor inaccuracies may be present. Of note: Engaged in an in-depth discussion with the patient?s family at the bedside regarding the current clinical status. The family expressed appropriate concern given the patient?s acute decline in mental status since admission and the overall lack of clinical improvement. I provided reassurance that all appropriate interventions are being undertaken, and that the care team will continue to provide regular updates. The family requested consideration for a lateral transfer to a tertiary care facility; I explained that the patient does not meet criteria for transfer at this time. Additionally, the patient?s daughter, Marizol, reported communication with the patient?s primary care physician, who confirmed that the patient is currently in the process of being evaluated for listing for transplant. Documentation for date of: 01/25/25 Subjective Subjective Interval history: Patient examined at bedside today. Overnight MAP was 48, patient was given midodrine, MAP improved to above 60. Patient also had urinary retention drained 400 cc, Melendez catheter placed and overnight. Patient feels same as yesterday still ongoing bilateral tremors of upper arms and lower legs. When patient tries to ambulate there is a loss of balance. Patient also appears to be drowsy. Mild shortness of breath is present as well. Exam Vital Signs Temp Pulse Resp BP Pulse Ox O2 Del Method O2 Flow Rate 98.0 F 76 14 113/78 94 L Nasal Cannula 3 01/25/25 08:00 01/25/25 08:23 01/25/25 08:00 01/25/25 08:23 01/25/25 08:00 01/25/25 08:00 01/25/25 08:00 Narrative Exam GENERAL Normal appearing adult female, NAD. HEENT NCAT. GEOVANNI. Oral mucosa is moist. Patent Nares NECK Supple, nontender, no JVD. CHEST RRR, no m/g/r, bilateral inspiratory crackles,no work of breathing, symmetrical expansion. ABDOMEN Soft, mildly distended, mildly tender throughout. No guarding/rebound tenderness/masses. Bowel sounds presents EXTREMITIES No edema/cyanosis. SKIN Warm and dry, no jaundice/rashes. Slightly pale. NEUROMUSCULAR bilateral tremors present of arms. Moves all 4 extremities slowly, with full ROM. No focal neurologic deficits. PSYCHIATRY Normal mood and affect, cooperative, no hallucinations Objective Labs 01/25/25 08:29 01/25/25 08:29 Labs: Laboratory Results - last 24 hr 01/24/25 01/24/25 01/25/25 15:24 16:45 00:15 WBC RBC Hgb Hct MCV MCH MCHC RDW Std Deviation Plt Count Neut % (Auto) Lymph % (Auto) [place] % (Auto) Eos % (Auto) Baso % (Auto) Neut # (Auto) Lymph # (Auto) [place] # (Auto) Eos # (Auto) Baso # (Auto) Immature Gran # (Auto) Absolute Nucleated RBC Immature Gran % Nucleated RBC % Sodium 140 Potassium 4.1 D Chloride 102 Carbon Dioxide 27.7 Anion Gap 10 BUN 30 H Creatinine 2.4 H Estim Creat Clear Calc 24.1 L eGFR 22 L BUN/Creatinine Ratio 13 Glucose 158 H Calculated Osmolality 288 Lactic Acid Calcium 8.9 Corrected Calcium 8.9 Phosphorus 3.7 Magnesium Total Bilirubin AST ALT Alkaline Phosphatase Ammonia < 10 L Total Protein Albumin 4.0 Globulin Albumin/Globulin Ratio Vitamin B12 Folate Free T4 Thyroxine (T4) Free T3 pg/dL Ur Random Creatinine 136 H Ur Random Sodium 57.0 Hepatitis A IgM Ab Hep Bs Antigen Hep B Core IgM Ab Hepatitis C Antibody 01/25/25 01/25/25 01/25/25 05:56 08:29 10:52 WBC 9.8 D RBC 3.78 L Hgb 9.2 L Hct 29.3 L MCV 78 L MCH 24.3 L MCHC 31.4 RDW Std Deviation 43.6 Plt Count 145 D Neut % (Auto) 79 Lymph % (Auto) 9 L [place] % (Auto) 8 Eos % (Auto) 3 Baso % (Auto) 1 Neut # (Auto) 7.7 Lymph # (Auto) 0.9 L [place] # (Auto) 0.8 Eos # (Auto) 0.3 Baso # (Auto) 0.1 Immature Gran # (Auto) 0.07 H Absolute Nucleated RBC 0.00 Immature Gran % 1 H Nucleated RBC % 0 Sodium 138 Potassium 4.3 Chloride 98 Carbon Dioxide 26.3 Anion Gap 14 BUN 42 H Creatinine 3.0 H D Estim Creat Clear Calc 19.3 L eGFR 17 L BUN/Creatinine Ratio 14 Glucose 142 H Calculated Osmolality 288 Lactic Acid 2.9 H 2.9 H Calcium 9.1 Corrected Calcium 9.1 Phosphorus 5.9 H Magnesium 2.0 Total Bilirubin 1.3 H D AST 37 H ALT 22 Alkaline Phosphatase 165 H Ammonia Total Protein 6.5 Albumin 4.0 Globulin 2.5 Albumin/Globulin Ratio 1.6 Vitamin B12 774 Folate 8.44 Free T4 Thyroxine (T4) Free T3 pg/dL Ur Random Creatinine Ur Random Sodium Hepatitis A IgM Ab Non Reactive Hep Bs Antigen Non Reactive Hep B Core IgM Ab Non Reactive Hepatitis C Antibody Non Reactive 01/25/25 11:19 WBC RBC Hgb Hct MCV MCH MCHC RDW Std Deviation Plt Count Neut % (Auto) Lymph % (Auto) [place] % (Auto) Eos % (Auto) Baso % (Auto) Neut # (Auto) Lymph # (Auto) [place] # (Auto) Eos # (Auto) Baso # (Auto) Immature Gran # (Auto) Absolute Nucleated RBC Immature Gran % Nucleated RBC % Sodium Potassium Chloride Carbon Dioxide Anion Gap BUN Creatinine Estim Creat Clear Calc eGFR BUN/Creatinine Ratio Glucose Calculated Osmolality Lactic Acid Calcium Corrected Calcium Phosphorus Magnesium Total Bilirubin AST ALT Alkaline Phosphatase Ammonia Total Protein Albumin Globulin Albumin/Globulin Ratio Vitamin B12 Folate Free T4 1.15 Thyroxine (T4) 8.2 Free T3 pg/dL 0.8 L Ur Random Creatinine Ur Random Sodium Hepatitis A IgM Ab Hep Bs Antigen Hep B Core IgM Ab Hepatitis C Antibody Quality Measures Quality Measures VTE prophylaxis Advance care planning discussed with:: patient Assessment & Plan Assessment Current Active Medications: Generic Name Dose Route Start Last Admin Trade Name Freq PRN Reason Stop Dose Admin Acetaminophen 650 mg 01/20/25 16:47 01/24/25 11:52 Acetaminophen 325 Mg Tablet PO 02/19/25 16:46 650 mg Q6H PRN Administration PAIN SCALE 1-3 (mild Acetaminophen 650 mg 01/20/25 16:47 01/24/25 19:47 Acetaminophen 325 Mg Tablet PO 02/19/25 16:46 650 mg Q6H PRN Administration Fever >100.4 Hydrocodone Bitart/Acetaminophen 1 tab 01/20/25 16:47 01/24/25 17:20 Hydrocodone/Apap 10/325 Tab PO 01/25/25 16:46 1 tab Q4HR PRN Administration PAIN SCALE 7-10 (Severe Albuterol/Ipratropium 3 ml 01/20/25 18:38 Albuterol/Ipratropium (Duoneb) Rt Lisset 3 Ml Nebu INH 02/19/25 18:37 Q6HRRT PRN Wheezing Dextrose 25 ml 01/20/25 18:39 Dextrose 50%-Water Inj 50 Ml Syringe IV 02/19/25 18:38 Q15MIN PRN BG 50-70 responsive npo pt Dextrose 50 ml 01/20/25 18:39 Dextrose 50%-Water Inj 50 Ml Syringe IV 02/19/25 18:38 Q15MIN PRN BG <50 OR BG <70 & pt unresponsive Docusate Sodium 200 mg 01/24/25 21:00 01/25/25 08:23 Docusate Sod 100 Mg Capsule PO 02/23/25 20:59 200 mg QDAY REYNA Administration Protocol Escitalopram Oxalate 20 mg 01/24/25 16:30 01/25/25 08:23 Escitalopram Oxalate 10 Mg Tablet PO 02/23/25 16:29 20 mg QDAY REYNA Administration Ferrous Sulfate 325 mg 01/21/25 11:30 01/25/25 08:23 Ferrous Sulf 325 Mg Tablet PO 02/20/25 11:29 325 mg QOD REYNA Administration Furosemide 20 mg 01/22/25 18:00 01/24/25 05:38 Furosemide Inj 10 Mg/Ml Vial 2 Ml IVP 02/20/25 17:59 20 mg BIDD REYNA Administration Glucagon 1 mg 01/20/25 18:39 Glucagon Inj 1 Mg Vial IM Q15MIN PRN BG <70, and no IV access Glycerin 1 each 01/24/25 20:53 01/25/25 01:20 Glycerin, Adult 1 Ea Supp [place] 02/23/25 20:52 1 each QDAY PRN Administration CONSTIPATION Heparin Sodium (Porcine) 5,000 unit 01/20/25 21:00 01/25/25 08:22 Heparin Sod Inj 5000 Unit/Ml Vial SC 02/03/25 20:59 5,000 unit BID REYNA Administration Hydromorphone HCl 1 mg 01/24/25 00:10 01/24/25 19:46 Hydromorphone Inj 2 Mg/Ml Vial IVP 01/29/25 00:09 1 mg Q6H PRN Administration BREAKTHROUGH PAIN (SEVERE) Protocol Piperacillin/Tazobactam/Dextrose 3.375 gm in 50 mls @ 12.5 mls/hr 01/24/25 22:00 01/25/25 05:56 Zosyn IV 01/31/25 21:59 12.5 mls/hr Q8HR RENYA Administration Protocol Ibuprofen 400 mg 01/24/25 14:01 01/24/25 14:09 Ibuprofen Tab 400 Mg Tablet PO 02/23/25 14:00 400 mg Q6HR PRN Administration Pain 4-6 Or Fever > 100.4 Protocol Insulin Human Lispro 0 unit 01/20/25 21:00 01/25/25 11:54 Insulin Lispro (Admelog) 1 Unit/0.01 Ml Unit SC 02/19/25 20:59 Not Given ACHS REYNA Protocol Lactulose 20 gm 01/24/25 14:00 01/25/25 05:56 Lactulose Syrup 20 Gm/30 Ml Udc PO 02/23/25 13:59 20 gm TID REYNA Administration Protocol Levothyroxine Sodium 112 mcg 01/21/25 06:00 01/25/25 05:56 Levothyroxine Sodium 112 Mcg Tablet PO 02/20/25 05:59 112 mcg ACBR REYNA Administration Lidocaine 1 patch 01/21/25 10:22 Lidocaine 5% 1 Patch TOP 02/20/25 10:21 UD PRN Back pain Protocol Loratadine 10 mg 01/21/25 09:00 01/25/25 08:23 Loratadine 10 Mg Tablet PO 02/20/25 08:59 10 mg QDAY REYNA Administration Metoprolol Succinate 50 mg 01/21/25 09:00 Metoprolol Succinate Xl 25 Mg Tabcr PO 02/20/25 08:59 QDAY REYNA Midodrine 15 mg 01/24/25 22:00 01/25/25 05:55 Midodrine 5 Mg Tablet PO 02/23/25 21:59 15 mg TID REYNA Administration Ondansetron HCl 4 mg 01/20/25 16:47 01/24/25 19:52 Ondansetron Inj 2 Mg/Ml Inj 2 Ml IVP 02/19/25 16:46 4 mg Q6H PRN Administration NAUSEA OR VOMITING Protocol Pantoprazole Sodium 40 mg 01/21/25 09:00 01/25/25 08:22 Pantoprazole Inj 40 Mg Vial IVP 02/20/25 08:59 40 mg BID REYNA Administration Pregabalin 150 mg 01/20/25 21:00 01/25/25 08:23 Pregabalin 75 Mg Capsule PO 02/19/25 20:59 150 mg BID REYNA Administration Primidone 250 mg 01/21/25 10:30 01/25/25 08:22 Primidone 50 Mg Tablet PO 01/26/25 10:29 250 mg QDAY REYNA Administration Primidone 50 mg 01/21/25 21:00 01/24/25 22:29 Primidone 50 Mg Tablet PO 01/26/25 20:59 50 mg HS REYNA Administration Spironolactone 25 mg 01/21/25 09:00 01/25/25 08:23 Spironolactone 25 Mg Tablet PO 02/20/25 08:59 25 mg BID REYNA Administration Zolpidem Tartrate 5 mg 01/25/25 21:00 Zolpidem 5 Mg Tablet PO 02/23/25 20:59 HS REYNA Plan Assessment: 64 year-old female with PMHx of alcoholic liver cirrhosis, COPD on home O2, hypothyroidism, asthma, HTN, T2DM and anxiety who presented to the ED with worsening ascites and abdominal discomfort. Admitted under observation for therapeutic/diagnostic paracentesis. #Acute encephalopathy?new onset #New onset fever, hypotension, low O2 saturations, tachycardia #?Presyncope #?Constipation #?Seizures Low suspicion of stroke as no focal neurological findings. Patient did have paracentesis which removed 8.4 L on 01/21/2025. Blood pressure had been soft since. Patient has been getting IV albumin. Patient's MAP dropped to 48 overnight she was given a bolus of lactated Ringer's to 50 cc and MAP improved to greater than 60 Patient has a bilateral tremor of the arms which is new in onset since 2 days ago, patient is known to have tremors of the hands. Patient has had no alcohol since last year KUB showed large stool in rectosigmoid, few air distended small bowel loop ? EEG pending read ? Neurology following, see recommendations ? Cardiology following, see recommendations ? Added pip-tazo 3.375 IV every 8 hours ? Increased midodrine to 15 mg 3 times daily ? Resumed escitalopram 20 mg daily home dose ? Holding metoclopramide ? Encourage BM movement #Acute kidney injury new onset #Prerenal Likely secondary to hypotension Creatinine 3.0, yesterday highest reading was was 2.4 Baseline Cr 0.9 ? Patient given 1 L fluid bolus normal saline ? Holding diuretics ? Monitor renal panel ? Renally dose meds, avoid overdiuresis and NEPHROTOXINS Decompensated alcoholic liver cirrhosis Significant ascites Significant alcohol use history, cirrhosis diagnosed in 08/2023. Has been on SPIRONOLACTONE, presenting with 1 month of worsening abdominal ascites. Abdominal CT showed cirrhosis, significant ascites, prominent splenomegaly, anasarca, esophageal and perigastric varices, no bowel obstruction. Ultrasound gallbladder showed distended gallbladder, negative for cholelithiasis, mildly thickened gallbladder wall likely from ascites. Anasarca on exam, with 2+ bilateral extremity edema extending above the knee. MELD score 9 equates to 6% mortality in 3 months. Child-Wilhelm score 7, Class B, indication for transplant evaluation. Paracentesis removed 8.4 L fluids, ALBUMIN was given pre and post para. Paracentesis analysis: WBC 202, peritoneal RBC 1000, total protein 4, albumin 2.2, LD H108, glucose 137, amylase 29 SAAG < 1.1 g/dL Portal hypertension is not necessarily the cause of ascites. ? Paracentesis tomorrow, max 5 L drainage ? Give albumin pre-paracentesis ? HOLDING LASIX 20 BID for lower extremity edema. ? Stop Zosyn ? Ceftriaxone 1 g every 24 hours started today for hepatic encephalopathy ppx ? Rifaximin 550 mg p.o. twice daily started today for hepatic encephalopathy ppx ? Continue SPIRONOLACTONE 25 mg BID ? Fluid restriction ? Sodium restriction of 2 g/day Hypothyroidism TSH 2.33 Free T4 1.15 Thyroxine T3 48.2 Free T3 0.8 Patient was taking liothyronine 20 mcg daily but was not started in hospital - Liothyronine 10 mcg daily started today, half of patient's home dose, under Dr. Jarvis's (endocrinology) recommendation ? Levothyroxine 112 mcg daily Microcytic anemia (stable) Grade 1 esophageal varices Mild thrombocytopenia (resolved) Hgb 8.9, baseline 11.4. Likely iron deficiency versus cirrhosis. CT showed esophageal and perigastric varices. Reports chronic, recurrent hemorrhoidal bleed, but denies dark stool or upper GI bleed. Had an EGD last year and was abnormal. She is on a 5-year colonoscopy scheduled for colonic polyps, last colonoscopy 5 years ago. B12 and folate WNL. Iron stores are low. EGD showed grade 1 lower third esophageal varices, moderate patchy hemorrhagic characteristic of the gastric antrum. GI recommended outpatient colonoscopy. Hemoglobin stable. ? Transfuse if Hgb less than 8 ? Will need PROPRANOLOL for variceal prophylaxis, if BP can tolerate ? Continue daily oral iron supplements HTN Asymptomatic sinus bradycardia Currently BP soft, normocardic. EKG shows sinus bradycardia, likely cirrhosis related on oral dysfunction versus BETA-BLOCKERS. ? Continue home LEVOTHYROXINE 112 mcg AC BR ? Consider resume home METOPROLOL when able ? Continue MIDODRINE 10 mg TID COPD, asthma Chronic respiratory failure, on home 2 L O2 No signs of asthma or COPD exacerbation ? DuoNebs q.6h. PRN ? Will discharge on [facility] T2DM A1c 7.7 from 08/2024. ? INSULIN sliding scale ? Accu-Cheks Elevated lipase Lipase 74, no nausea or vomiting, no epigastric pain subjectively on exam. No radiographic findings of acute pancreatitis. ? Continue to monitor Electrolyte abnormalities ? Daily labs, replete as needed Anxiety ? Continue home LYRICA Health maintenance Diet: Renal diet GI prophylaxis: PROTONIX DVT prophylaxis: SCDs Antibiotics: Ceftriaxone and rifaximin CODE STATUS: Full code Disposition: Admitted under observation for paracentesis Case discussed with my attending Dr. Sawyer and senior resident Dr. Malika Kidd MD PGY-1 Attending Provider Attestation/Addendum I have examined the patient, reviewed labs and imaging findings, discussed the case with the resident(s), and reviewed entered orders. I agree with the plan of care as outlined in this note, with these additional summaries/recommendations: Patient seen at bedside. Patient continues to have intermittent episodes of encephalopathy although slightly improved from yesterday. She does not have evidence of postictal state but does have bilateral upper extremity shaking during these episodes. She does have bilateral upper extremity tremor at baseline. Consult in-house neurology to rule out new onset seizures, recommendations appreciated. EEG taken and pending read. I did have a concern of possible presyncopal/syncopal episodes given patients soft blood pressure although also unlikely. Possible symptoms are related to medication withdrawal. Resume home escitalopram and primidone. Hold home metoclopramide. Patient also recently underwent paracentesis and has had relatively soft blood pressure requiring initiation of midodrine. Continue midodrine. EKG reviewed and no arrhythmia noted. Keep patient hydrated. Patient was also noted to develop fevers overnight and repeat cultures were taken which currently show no growth. Chest x-ray was obtained which revealed left lower lobe infiltrate. Antibiotics broadened. Low suspicion for pulmonary embolism although D-dimer obtained which is significantly elevated. Patient at mild to moderate risk for pulmonary embolism and if new improvement may consider VQ scan. Patient developed severe acute kidney injury. Consult in-house nephrology, recommendations appreciated. Avoid nephrotoxic agents and renally dose medications. Patient reports improvement in generalized swelling after starting IV diuresis which we will place on hold given DONNA. Patient went for diagnostic and therapeutic paracentesis 01/21/25. No previous history of paracentesis. Patient had 8400 cc of peritoneal fluid removed. Patient has underlying alcoholic cirrhosis and is yet to establish care with gastroenterology or spinner continuous. Gastroenterology was consulted on admission and s/p EGD which revealed grade 1 esophageal varcies. Continue low salt diet. Patient will need outpatient follow-up for hepatitis B and A vaccines. Continue home levothyroxine for hypothyroidism. Continue insulin sliding scale for diabetes mellitus type 2. Hold home antihypertensives for now. Patient updated on the plan and in agreement. All questions answered to satisfaction. Please see residents note for additional details and management. Dr. Digna MD
[2025-01-25 14:18] LABS: Reflex Lactate? Y
[2025-01-25 14:46] LABS: Lactic Acid, 3 HR 3.5 mMol/L (0.4-2.0)
--- NOTE | 2025-01-25 15:16 | ESPR_ITS ---
<Statement entered by Erin Tomas MD - 01/28/25 14:34> The patient was personally examined by me and evaluated the patient with the resident physician has multiple problems including cirrhosis of the liver ascites no evidence of heart failure most of her problems are due to liver disease portal hypertension. No evidence of pulmonary hypertension. I evaluated the patient with the results physician Dr. Kennedy PGY2 and agree with the treatment plan recommendations documented. Documentation for date of: 01/25/25 Subjective Subjective Interval history: pt is seen at bedside, currently saturating 88% on 3L O2 via NC. Pt is alert and oriented x4. Pt appears to be very uncomfortable and short of breath due to significantly distended abdomen. Pt has remained afebrile overnight and HR has improved and remained between 80-100. Pt denies any cardiac symptoms including chest pain, pressure, palpitation or dizziness. Nephrology team is on board due to Cr 3.0 , BUN 42, GFR 17. Pt is making urine, currently 600cc in the lindquist bag, total output is 900cc. Echo is pending Other significant labs include t bili 1.3. although pt has significant ascites primary team is holding off on the paracenthesis today due to hypotension. Albumin is 4.0 and hepatitis panel is negative. Recommend continue to hold metoprolol and spironolactone, continue low dose lasix if BP tolerates. Cardiology team is ok with paracenthesis even if BP is on the softer side, pt maybe be given albulmin and 300 to 400 cc of IV fluid bolus if necessary to maintain MAP above 60. Echo findings show good cardiac movement and no PAH seen on echo. PAH is caues by severe portal HTN [facility] end stage [facility] disease. Exam Vital Signs Temp Pulse Resp BP Pulse Ox O2 Del Method O2 Flow Rate 98.0 F 88 14 108/61 94 L Nasal Cannula 3 01/25/25 08:00 01/25/25 14:29 01/25/25 08:00 01/25/25 14:29 01/25/25 08:00 01/25/25 08:00 01/25/25 08:00 Narrative Exam GENERAL: A&Ox2, chronically ill appearing, Awake, Not in acute distress NEURO: no focal neurological deficits HEENT: Atraumatic, Normocephalic. mucous membranes moist. Eyes open, symmetrical, & clear HEART: Normal Heart Sounds LUNGS: Clear to auscultation with no wheezing or crackles. ABDOMEN: significantly distended abdomen, tender to palpation EXTREMITIES: no edema noted in LE, no tenderness, able to move all 4 extremities, pedal pulses palpated Objective Labs 01/25/25 08:29 01/25/25 08:29 Labs: Laboratory Results - last 24 hr 01/24/25 01/24/25 01/25/25 15:24 16:45 00:15 WBC RBC Hgb Hct MCV MCH MCHC RDW Std Deviation Plt Count Neut % (Auto) Lymph % (Auto) [place] % (Auto) Eos % (Auto) Baso % (Auto) Neut # (Auto) Lymph # (Auto) [place] # (Auto) Eos # (Auto) Baso # (Auto) Immature Gran # (Auto) Absolute Nucleated RBC Immature Gran % Nucleated RBC % Sodium 140 Potassium 4.1 D Chloride 102 Carbon Dioxide 27.7 Anion Gap 10 BUN 30 H Creatinine 2.4 H Estim Creat Clear Calc 24.1 L eGFR 22 L BUN/Creatinine Ratio 13 Glucose 158 H Calculated Osmolality 288 Lactic Acid Calcium 8.9 Corrected Calcium 8.9 Phosphorus 3.7 Magnesium Total Bilirubin AST ALT Alkaline Phosphatase Ammonia < 10 L Total Protein Albumin 4.0 Globulin Albumin/Globulin Ratio Vitamin B12 Folate Free T4 Thyroxine (T4) Free T3 pg/dL Ur Random Creatinine 136 H Ur Random Sodium 57.0 Hepatitis A IgM Ab Hep Bs Antigen Hep B Core IgM Ab Hepatitis C Antibody 01/25/25 01/25/25 01/25/25 05:56 08:29 10:52 WBC 9.8 D RBC 3.78 L Hgb 9.2 L Hct 29.3 L MCV 78 L MCH 24.3 L MCHC 31.4 RDW Std Deviation 43.6 Plt Count 145 D Neut % (Auto) 79 Lymph % (Auto) 9 L [place] % (Auto) 8 Eos % (Auto) 3 Baso % (Auto) 1 Neut # (Auto) 7.7 Lymph # (Auto) 0.9 L [place] # (Auto) 0.8 Eos # (Auto) 0.3 Baso # (Auto) 0.1 Immature Gran # (Auto) 0.07 H Absolute Nucleated RBC 0.00 Immature Gran % 1 H Nucleated RBC % 0 Sodium 138 Potassium 4.3 Chloride 98 Carbon Dioxide 26.3 Anion Gap 14 BUN 42 H Creatinine 3.0 H D Estim Creat Clear Calc 19.3 L eGFR 17 L BUN/Creatinine Ratio 14 Glucose 142 H Calculated Osmolality 288 Lactic Acid 2.9 H 2.9 H Calcium 9.1 Corrected Calcium 9.1 Phosphorus 5.9 H Magnesium 2.0 Total Bilirubin 1.3 H D AST 37 H ALT 22 Alkaline Phosphatase 165 H Ammonia Total Protein 6.5 Albumin 4.0 Globulin 2.5 Albumin/Globulin Ratio 1.6 Vitamin B12 774 Folate 8.44 Free T4 Thyroxine (T4) Free T3 pg/dL Ur Random Creatinine Ur Random Sodium Hepatitis A IgM Ab Non Reactive Hep Bs Antigen Non Reactive Hep B Core IgM Ab Non Reactive Hepatitis C Antibody Non Reactive 01/25/25 01/25/25 11:19 14:35 WBC RBC Hgb Hct MCV MCH MCHC RDW Std Deviation Plt Count Neut % (Auto) Lymph % (Auto) [place] % (Auto) Eos % (Auto) Baso % (Auto) Neut # (Auto) Lymph # (Auto) [place] # (Auto) Eos # (Auto) Baso # (Auto) Immature Gran # (Auto) Absolute Nucleated RBC Immature Gran % Nucleated RBC % Sodium Potassium Chloride Carbon Dioxide Anion Gap BUN Creatinine Estim Creat Clear Calc eGFR BUN/Creatinine Ratio Glucose Calculated Osmolality Lactic Acid 3.5 H Calcium Corrected Calcium Phosphorus Magnesium Total Bilirubin AST ALT Alkaline Phosphatase Ammonia Total Protein Albumin Globulin Albumin/Globulin Ratio Vitamin B12 Folate Free T4 1.15 Thyroxine (T4) 8.2 Free T3 pg/dL 0.8 L Ur Random Creatinine Ur Random Sodium Hepatitis A IgM Ab Hep Bs Antigen Hep B Core IgM Ab Hepatitis C Antibody Quality Measures Quality Measures VTE prophylaxis Advance care planning discussed with:: patient and child Assessment & Plan Assessment Current Active Medications: Generic Name Dose Route Start Last Admin Trade Name Freq PRN Reason Stop Dose Admin Acetaminophen 650 mg 01/20/25 16:47 01/24/25 11:52 Acetaminophen 325 Mg Tablet PO 02/19/25 16:46 650 mg Q6H PRN Administration PAIN SCALE 1-3 (mild Acetaminophen 650 mg 01/20/25 16:47 01/24/25 19:47 Acetaminophen 325 Mg Tablet PO 02/19/25 16:46 650 mg Q6H PRN Administration Fever >100.4 Hydrocodone Bitart/Acetaminophen 1 tab 01/20/25 16:47 01/25/25 14:29 Hydrocodone/Apap 10/325 Tab PO 01/25/25 16:46 1 tab Q4HR PRN Administration PAIN SCALE 7-10 (Severe Albuterol/Ipratropium 3 ml 01/20/25 18:38 Albuterol/Ipratropium (Duoneb) Rt Lisset 3 Ml Nebu INH 02/19/25 18:37 Q6HRRT PRN Wheezing Dextrose 25 ml 01/20/25 18:39 Dextrose 50%-Water Inj 50 Ml Syringe IV 02/19/25 18:38 Q15MIN PRN BG 50-70 responsive npo pt Dextrose 50 ml 01/20/25 18:39 Dextrose 50%-Water Inj 50 Ml Syringe IV 02/19/25 18:38 Q15MIN PRN BG <50 OR BG <70 & pt unresponsive Docusate Sodium 200 mg 01/24/25 21:00 01/25/25 08:23 Docusate Sod 100 Mg Capsule PO 02/23/25 20:59 200 mg QDAY REYNA Administration Protocol Escitalopram Oxalate 20 mg 01/24/25 16:30 01/25/25 08:23 Escitalopram Oxalate 10 Mg Tablet PO 02/23/25 16:29 20 mg QDAY REYNA Administration Ferrous Sulfate 325 mg 01/21/25 11:30 01/25/25 08:23 Ferrous Sulf 325 Mg Tablet PO 02/20/25 11:29 325 mg QOD REYNA Administration Furosemide 20 mg 01/22/25 18:00 01/24/25 05:38 Furosemide Inj 10 Mg/Ml Vial 2 Ml IVP 02/20/25 17:59 20 mg BIDD REYNA Administration Glucagon 1 mg 01/20/25 18:39 Glucagon Inj 1 Mg Vial IM Q15MIN PRN BG <70, and no IV access Glycerin 1 each 01/24/25 20:53 01/25/25 01:20 Glycerin, Adult 1 Ea Supp FL 02/23/25 20:52 1 each QDAY PRN Administration CONSTIPATION Heparin Sodium (Porcine) 5,000 unit 01/20/25 21:00 01/25/25 08:22 Heparin Sod Inj 5000 Unit/Ml Vial SC 02/03/25 20:59 5,000 unit BID REYNA Administration Hydromorphone HCl 1 mg 01/24/25 00:10 01/24/25 19:46 Hydromorphone Inj 2 Mg/Ml Vial IVP 01/29/25 00:09 1 mg Q6H PRN Administration BREAKTHROUGH PAIN (SEVERE) Protocol Albumin Human 25 gm in 100 mls @ 100 mls/hr 01/25/25 15:11 Albuminar-25 Ivpb IV 01/28/25 15:10 QDAY REYNA Ibuprofen 400 mg 01/24/25 14:01 01/24/25 14:09 Ibuprofen Tab 400 Mg Tablet PO 02/23/25 14:00 400 mg Q6HR PRN Administration Pain 4-6 Or Fever > 100.4 Protocol Insulin Human Lispro 0 unit 01/20/25 21:00 01/25/25 11:54 Insulin Lispro (Admelog) 1 Unit/0.01 Ml Unit SC 02/19/25 20:59 Not Given ACHS REYNA Protocol Lactulose 20 gm 01/24/25 14:00 01/25/25 14:29 Lactulose Syrup 20 Gm/30 Ml Udc PO 02/23/25 13:59 20 gm TID REYNA Administration Protocol Levothyroxine Sodium 112 mcg 01/21/25 06:00 01/25/25 05:56 Levothyroxine Sodium 112 Mcg Tablet PO 02/20/25 05:59 112 mcg ACBR REYNA Administration Lidocaine 1 patch 01/21/25 10:22 Lidocaine 5% 1 Patch TOP 02/20/25 10:21 UD PRN Back pain Protocol Liothyronine Sodium 10 mcg 01/25/25 14:15 01/25/25 14:23 Liothyronine Sod 5 Mcg Tablet PO 02/24/25 14:14 Not Given QDAY REYNA Loratadine 10 mg 01/21/25 09:00 01/25/25 08:23 Loratadine 10 Mg Tablet PO 02/20/25 08:59 10 mg QDAY REYNA Administration Metoprolol Succinate 50 mg 01/21/25 09:00 Metoprolol Succinate Xl 25 Mg Tabcr PO 02/20/25 08:59 QDAY REYNA Midodrine 15 mg 01/24/25 22:00 01/25/25 14:29 Midodrine 5 Mg Tablet PO 02/23/25 21:59 15 mg TID REYNA Administration Ondansetron HCl 4 mg 01/20/25 16:47 01/24/25 19:52 Ondansetron Inj 2 Mg/Ml Inj 2 Ml IVP 02/19/25 16:46 4 mg Q6H PRN Administration NAUSEA OR VOMITING Protocol Pantoprazole Sodium 40 mg 01/21/25 09:00 01/25/25 08:22 Pantoprazole Inj 40 Mg Vial IVP 02/20/25 08:59 40 mg BID REYNA Administration Pregabalin 150 mg 01/20/25 21:00 01/25/25 08:23 Pregabalin 75 Mg Capsule PO 02/19/25 20:59 150 mg BID REYNA Administration Primidone 250 mg 01/21/25 10:30 01/25/25 08:22 Primidone 50 Mg Tablet PO 01/26/25 10:29 250 mg QDAY REYNA Administration Primidone 50 mg 01/21/25 21:00 01/24/25 22:29 Primidone 50 Mg Tablet PO 01/26/25 20:59 50 mg HS REYNA Administration Spironolactone 25 mg 01/21/25 09:00 01/25/25 08:23 Spironolactone 25 Mg Tablet PO 02/20/25 08:59 25 mg BID REYNA Administration Zolpidem Tartrate 5 mg 01/25/25 21:00 Zolpidem 5 Mg Tablet PO 02/23/25 20:59 HS REYNA Plan Ms. Mario is a 64-year-old female with past medical history significant for decompensated liver cirrhosis (diagnosed in October 2024), COPD on home oxygen, asthma, hypothyroidism, hypertension, type 2 diabetes and anxiety presented to the ED on 01/20/25 complaining of worsening abdominal pain and distention. Cardiology is consulted due to tachycardia and hypotension. #Syncopal episode #Pulmonary arterial hypertension -ruled out #Portal hypertension #Hepatorenal Syndrome #Sinus tachycardia secondary to fevers- resolved #Hypotension -Patient has been in the hospital since 01/20 however since midnight overnight patient has been having sinus tachycardia and fever. Telemetry is reviewed patient is in sinus rhythm. Since patient is a high risk for peritonitis in the setting of end-stage liver disease patient's tachycardia is likely from the fevers indicating possible source of infection. -Low cardiac suspicion for her symptoms right now, patient's hypotension is due to current illness as patient had 8.4 L of fluid removed via paracentesis. EKG: Sinus tachycardia with rate of 120 and QTc 449 Plan: -Continue treating patient's decompensated liver cirrhosis -Continue broad-spectrum IV antibiotics for possible source of infection -Continue Lasix 20 mg twice daily as tolerated by pt's blood pressure -Hold spironolactone 25 mg BID -Recommend increasing midodrine to 15 mg 3 times daily for hypotension -Continue to hold metoprolol XL to avoid masking tachycardia in the setting of possible infection -Pt may have 300-400 cc of IV fluids if needed to maintain MAP > 60 -Recommend albumin with paracenthesis -Continue low-sodium 2 g diet -Strict ins and outs -Echo showed good cardiac activity with EF >60% and no evidence of PAH #End-stage liver disease #Altered mental status- improved #[id number] type 2 diabetes #Primary hypertension #Hypothyroidism #COPD #Asthma #Anxiety Management as per primary team Thank you for the consult and allowing us to participate in the care of the patient. Cardiology will continue to follow. Assessment and plan discussed with my attending [employer] Dr. Thom Kennedy (PGY-2)- Internal medicine resident
--- NOTE | 2025-01-25 15:16 | XR_ITS ---
Examination: Abdomen sonogram, Limited Date and time of exam: January 25, 2025 1536 hours INDICATIONS: Diagnosis cirrhosis with distended abdomen today Technique: Real-time haskins scale transabdominal sonographic images of the upper abdomen obtained. Findings: Minimal ascitic fluid IMPRESSION: Minimal ascitic fluid
[2025-01-25] MEDS: cefTRIAXone/D5w 1gm IV premix 1 GM/50 ML BAG IV (16:45)
[2025-01-25] MEDS: ALBUMIN HUMAN 25% IVPB 25 GM/100 ML BTL IV (16:47)
[2025-01-25 17:45] LABS: Lactate (Lactic Acid) 2.6 mMol/L (0.4-2.0)
[2025-01-25 20:41] LABS: Reflex Lactate? Y
[2025-01-25] MEDS: PRIMIDONE 50 MG TABLET PO (20:48)
[2025-01-25] MEDS: HYDROmorphone INJ 2 MG/ML VIAL 1 MG IVP (20:48)
[2025-01-25] MEDS: INSULIN LISPRO (AdmeLOG) 1 UNIT/0.01 ML UNIT SC (20:56)
--- NOTE | 2025-01-25 21:46 | PD.IMPROG ---
Documentation for date of: 01/25/25 Subjective Subjective Interval history: Patient evaluated. Advanced portal hypertension with tense ascites recommend large-volume paracentesis with intravenous albumin going at the same time during paracentesis Change Zosyn to ceftriaxone Discussed case with cardiology Dr. Tomas is going to review the echocardiogram to make sure patient does not have pulmonary hypertension Exam Vital Signs Temp Pulse Resp BP Pulse Ox O2 Del Method O2 Flow Rate 98.7 F 113 H 17 111/62 93 L Nasal Cannula 3 01/25/25 20:00 01/25/25 20:00 01/25/25 20:00 01/25/25 20:00 01/25/25 20:00 01/25/25 16:00 01/25/25 16:00 Objective Labs 01/25/25 08:29 01/25/25 08:29 Labs: Laboratory Results - last 24 hr 01/25/25 01/25/25 01/25/25 00:15 05:56 08:29 WBC 9.8 D RBC 3.78 L Hgb 9.2 L Hct 29.3 L MCV 78 L MCH 24.3 L MCHC 31.4 RDW Std Deviation 43.6 Plt Count 145 D Neut % (Auto) 79 Lymph % (Auto) 9 L [place] % (Auto) 8 Eos % (Auto) 3 Baso % (Auto) 1 Neut # (Auto) 7.7 Lymph # (Auto) 0.9 L [place] # (Auto) 0.8 Eos # (Auto) 0.3 Baso # (Auto) 0.1 Immature Gran # (Auto) 0.07 H Absolute Nucleated RBC 0.00 Immature Gran % 1 H Nucleated RBC % 0 Sodium 138 Potassium 4.3 Chloride 98 Carbon Dioxide 26.3 Anion Gap 14 BUN 42 H Creatinine 3.0 H D Estim Creat Clear Calc 19.3 L eGFR 17 L BUN/Creatinine Ratio 14 Glucose 142 H Calculated Osmolality 288 Lactic Acid 2.9 H Calcium 9.1 Corrected Calcium 9.1 Phosphorus 5.9 H Magnesium 2.0 Total Bilirubin 1.3 H D AST 37 H ALT 22 Alkaline Phosphatase 165 H Total Protein 6.5 Albumin 4.0 Globulin 2.5 Albumin/Globulin Ratio 1.6 Vitamin B12 774 Folate 8.44 Free T4 Thyroxine (T4) Free T3 pg/dL Ur Random Creatinine 136 H Ur Random Sodium 57.0 Hepatitis A IgM Ab Hep Bs Antigen Hep B Core IgM Ab Hepatitis C Antibody 01/25/25 01/25/25 01/25/25 10:52 11:19 14:35 WBC RBC Hgb Hct MCV MCH MCHC RDW Std Deviation Plt Count Neut % (Auto) Lymph % (Auto) [place] % (Auto) Eos % (Auto) Baso % (Auto) Neut # (Auto) Lymph # (Auto) [place] # (Auto) Eos # (Auto) Baso # (Auto) Immature Gran # (Auto) Absolute Nucleated RBC Immature Gran % Nucleated RBC % Sodium Potassium Chloride Carbon Dioxide Anion Gap BUN Creatinine Estim Creat Clear Calc eGFR BUN/Creatinine Ratio Glucose Calculated Osmolality Lactic Acid 2.9 H 3.5 H Calcium Corrected Calcium Phosphorus Magnesium Total Bilirubin AST ALT Alkaline Phosphatase Total Protein Albumin Globulin Albumin/Globulin Ratio Vitamin B12 Folate Free T4 1.15 Thyroxine (T4) 8.2 Free T3 pg/dL 0.8 L Ur Random Creatinine Ur Random Sodium Hepatitis A IgM Ab Non Reactive Hep Bs Antigen Non Reactive Hep B Core IgM Ab Non Reactive Hepatitis C Antibody Non Reactive 01/25/25 17:30 WBC RBC Hgb Hct MCV MCH MCHC RDW Std Deviation Plt Count Neut % (Auto) Lymph % (Auto) [place] % (Auto) Eos % (Auto) Baso % (Auto) Neut # (Auto) Lymph # (Auto) [place] # (Auto) Eos # (Auto) Baso # (Auto) Immature Gran # (Auto) Absolute Nucleated RBC Immature Gran % Nucleated RBC % Sodium Potassium Chloride Carbon Dioxide Anion Gap BUN Creatinine Estim Creat Clear Calc eGFR BUN/Creatinine Ratio Glucose Calculated Osmolality Lactic Acid 2.6 H Calcium Corrected Calcium Phosphorus Magnesium Total Bilirubin AST ALT Alkaline Phosphatase Total Protein Albumin Globulin Albumin/Globulin Ratio Vitamin B12 Folate Free T4 Thyroxine (T4) Free T3 pg/dL Ur Random Creatinine Ur Random Sodium Hepatitis A IgM Ab Hep Bs Antigen Hep B Core IgM Ab Hepatitis C Antibody Impressions Impression: Advanced portal hypertension with tense ascites PT PTT Platelet count is 145,000 Large-volume paracentesis Albumin to be infused during the therapeutic paracentesis by IR Chronic liver disease Deteriorating renal function Plan As in the HPI Assessment & Plan A&P Narrative # Decompensated alcoholic liver disease with advanced portal hypertension esophageal varices and intractable ascites Plan Agree with the IV Lasix Agree with IV albumin Add spironolactone 25 mg p.o. twice daily Scheduled for therapeutic paracentesis Monitor renal function closely Consent obtained for fiberoptic esophagogastroduodenoscopy with possible biopsy possible therapeutic intervention for prophylactic band ligation of the esophageal varices Agree with IV ceftriaxone for the possibility of subacute bacterial peritonitis Will follow the patient Other medical problems include COPD on home oxygen 2 L nasal cannula Essential hypertension Hypothyroidism Hyperlipidemia Thank you very much for the opportunity to participate in care of this patient Time Spent With Patient Time: Total time spent is greater than 50% in coordination of care (as documented) at patient's floor/unit and/or counseling patient:
[2025-01-25 21:58] LABS: Lactic Acid, 3 HR 2.1 mMol/L (0.4-2.0)
[2025-01-25] MEDS: IBUPROFEN TAB 400 MG TABLET PO (22:34)
[2025-01-25 23:40] LABS: Lactate (Lactic Acid) 1.7 mMol/L (0.4-2.0)
[2025-01-26] VITALS (11 sets, daily range): BP systolic 90–127; BP diastolic 49–67; PULSE 71–117; RESP 13–19; TEMP 36.2–36.6; O2SAT 95–100
[2025-01-26 00:17] LABS: Creatinine,Random Urine 157 mg/dL (30-125); Urea Nitrogen, Random Urine 208.0 mg/dL (350.0-1000.0)
[2025-01-26 05:38] LABS: Base Excess, Venous 0 (-3-3); O2 Saturation, Venous 92 % (96-97); PCO2, Venous 37 mmHg (36-56); PO2, Venous 59 mmHg (15-58); pH, Venous 7.43 (7.33-7.66)
[2025-01-26 05:45] LABS: Basophils # (Auto) 0.1 Thou/mm3 (0.0-0.2); Basophils % (Auto) 1 % (0-2.5); Eosinophils # (Auto) 0.1 Thou/mm3 (0.0-0.5); Eosinophils % (Auto) 1 % (0-10); Hematocrit 30.5 % (36.0-46.0); Hemoglobin 9.6 g/dL (12.0-16.0); Immature Granulocytes Auto 0.09 Thou/mm3 (0.00-0.00); Lymphocytes # (Auto) 1.3 Thou/mm3 (1.0-4.8); Lymphocytes % (Auto) 11 % (10-50); Mean Corpuscular HGB Conc 31.5 g/dl (31.0-37.0); Mean Corpuscular Hemoglobin 24.6 pg (25.0-35.0); Mean Corpuscular Volume 78 fL (80-100); Monocytes # (Auto) 1.2 Thou/mm3 (0.0-0.8); Monocytes % (Auto) 10 % (0-12); Neutrophils # (Auto) 8.9 Thou/mm3 (1.8-7.7); Neutrophils % (Auto) 77 % (37-80); Nucleated Red Blood Cell # 0.00 Thou/mm3 (0.00-0.00); Nucleated Red Blood Cell % 0 /100 WBC (0); Platelet Count 253 Thou/mm3 (140-440); RDW Standard Deviation 43.4 fL (36.4-46.3); Red Blood Count 3.91 Miln/mm3 (4.00-5.20); White Blood Count 11.7 Thou/mm3 (3.6-11.0)
[2025-01-26] MEDS: LACTULOSE SYRUP 20 GM/30 ML UDC PO (05:56)
[2025-01-26] MEDS: MIDODRINE 5 MG TABLET 15 MG PO ×3 (05:57→22:33)
[2025-01-26] MEDS: LEVOTHYROXINE SODIUM 112 MCG TABLET PO (05:57)
[2025-01-26 06:09] LABS: Vitamin D 25 Hydroxy Total 16.2 ng/mL (7.3-40.2)
--- NOTE | 2025-01-26 06:09 | XR_ITS ---
Examination: Abdomen AP single view Technique: AP portable supine abdomen, single view Exam date and time: January 26, 2025, 0611 hours INDICATIONS: Abdominal distention today. FINDINGS: Large amounts of stool throughout the colon Significantly air distended small bowel loops in the left abdomen No free air IMPRESSION: Recommend CT scan abdomen pelvis without contrast follow-up to exclude small bowel obstruction
[2025-01-26] MEDS: HYDROmorphone INJ 2 MG/ML VIAL 0.5 MG IVP (06:14)
[2025-01-26] MEDS: ONDANSETRON INJ 2 MG/ML INJ 2 ML 4 MG IVP (06:14)
[2025-01-26 06:18] LABS: Alanine Aminotransferase 16 U/L (10-49); Albumin, Serum 4.0 gm/dL (3.4-4.8); Albumin/Globulin Ratio 1.4 (1.2-2.2); Alkaline Phosphatase 139 U/L (46-116); Anion Gap 16 (7-16); Aspartate Amino Transferase 25 U/L (0-34); BUN/Creatinine Ratio 11 Ratio (12-20); Bilirubin,Total 1.0 mg/dL (0.3-1.2); Blood Urea Nitrogen 39 mg/dL (9-23); Calcium 9.1 mg/dL (8.3-10.6); Calcium (Corrected) 9.1 mg/dL (8.5-10.1); Carbon Dioxide 23.8 mMol/L (20.0-31.0); Chloride 97 mMol/L (98-107); Creatinine (Component) 3.4 mg/dL (0.6-1.3); Estimated Creatinine Clearance 17.0 mL/min (>60); Globulin 2.9 gm/dL (2.3-3.5); Glucose 149 mg/dL (74-106); Magnesium 2.2 mg/dL (1.6-2.6); Osmolality,Calculated 286 (275-295); Phosphorous 6.8 mg/dL (2.4-5.1); Potassium 4.2 mMol/L (3.4-5.1); Sodium 137 mMol/L (136-145); Total Protein 6.9 gm/dL (5.7-8.2); eGFR 14 See Note
--- NOTE | 2025-01-26 07:17 | ESPR_ITS ---
<Statement entered by Keith Daly MD - 01/26/25 21:14> In summary 64-year-old female with PMHx of alcoholic liver cirrhosis, COPD on home O2, hypothyroidism, asthma, HTN, T2DM, and anxiety, admitted for acute decompensated liver cirrhosis with abdominal ascites. She had 8.4 L peritoneal fluid removed on admission, and was continued on LACTULOSE and prophylactic ANTIBIOTICS. Initially she did well after procedure however. Since admission she's had multiple rapid for altered mental status, and possibly acute onset generalized jerking and weakness. She is on multiple anxiolytics including LYRICA, SSRI, and AMBIEN. Neurology was consulted and resumed her home meds. There is an EEG which was taken but pending reads. Additionally, she seems to have developed DONNA, likely ATN or hepatorenal with worsening renal function. This is accompanied by lactic acidosis, likely combined type A/B given liver failure and hypotension has been really difficult to manage despite MIDODRINE and intermittent fluid resuscitation, currently diuresis on hold. Her case is complicated by possible thyroid hormone derangement. She is on home LEVOTHYROXINE 112 mcg and LIOTHYRONINE 20 mEq daily, which is excessively high dose for her weight. I spoke with her PCP office, who confirmed correct dose. Patient also admits to the same dose. TSH was normal, T4 was normal, however T3 was significantly low. We resumed T3 at half the dose (10 mcg daily) for concern for withdrawal. In terms of the mental status, she appears slightly better today. We have GI on board. Ammonia was normal on multiple repeats. We increased dose of LACTULOSE given constipation. RIFAXIMIN added. Today, she showed improvement in terms of mentation and myoclonus. However, she still had no bowel movement. KUB was done showing large amount of stool in the colon. General surgery was consulted and CT abdomen was done showing possible SBO and right colon bowel ischemia. However, general not agree with CT findings of bowel ischemia given that lactic acid had normalized. General surgery agreed to continue with LACTULOSE and enema. On evaluation this evening, she reported urge to pass a bowel, and was transferred to [facility] for an attempt to pass bowel. Ultrasound showed no large amount of fluid in the abdomen to be safely removed. However CT abdomen showed moderate ascites. Will consider paracentesis. DONNA stable, but not improving. Nephrology on board, no indication for immediate hemodialysis. But will consider renal function is worsening. Echocardiogram today showed normal ejection fraction. Overall, blood pressure improved. Mentation improved. Case was discussed with attending physician. Keith Daly DO PGY II This document was transcribed using voice recognition technology. Minor inaccuracies may be present. Documentation for date of: 01/26/25 Subjective Subjective Interval history: Patient seen at bedside. Patient's blood pressure overnight approximately 90/49 with a MAP of 63 patient was given midodrine and blood pressure improved. Patient's hydromorphone was decreased to 0.5 mg. Exam Vital Signs Temp Pulse Resp BP Pulse Ox O2 Del Method O2 Flow Rate 97.9 F 115 H 17 90/49 L 98 Nasal Cannula 4.5 01/26/25 04:00 01/26/25 05:57 01/26/25 04:00 01/26/25 05:57 01/26/25 04:00 01/26/25 04:00 01/26/25 04:00 Narrative Exam GENERAL Normal appearing adult female, NAD. HEENT NCAT. GEOVANNI. Oral mucosa is moist. Patent Nares NECK Supple, nontender, no JVD. CHEST RRR, no m/g/r, bilateral inspiratory crackles,no work of breathing, symmetrical expansion. ABDOMEN Soft, moderately distended, mildly tender throughout. No guarding/rebound tenderness/masses. Bowel sounds presents EXTREMITIES No edema/cyanosis. SKIN Warm and dry, no jaundice/rashes. Slightly pale. NEUROMUSCULAR Asterixis bilaterally of upper extremities. Moves all 4 extremities slowly, with full ROM. No focal neurologic deficits. PSYCHIATRY Normal mood and affect, cooperative, no hallucinations Objective Labs 01/27/25 05:51 01/27/25 05:51 Labs: Laboratory Results - last 24 hr 01/25/25 01/25/25 01/25/25 05:56 08:29 10:52 WBC 9.8 D RBC 3.78 L Hgb 9.2 L Hct 29.3 L MCV 78 L MCH 24.3 L MCHC 31.4 RDW Std Deviation 43.6 Plt Count 145 D Neut % (Auto) 79 Lymph % (Auto) 9 L [place] % (Auto) 8 Eos % (Auto) 3 Baso % (Auto) 1 Neut # (Auto) 7.7 Lymph # (Auto) 0.9 L [place] # (Auto) 0.8 Eos # (Auto) 0.3 Baso # (Auto) 0.1 Immature Gran # (Auto) 0.07 H Absolute Nucleated RBC 0.00 Immature Gran % 1 H Nucleated RBC % 0 VBG pH VBG pCO2 VBG pO2 VBG O2 Sat ([place]) VBG Base Excess Sodium 138 Potassium 4.3 Chloride 98 Carbon Dioxide 26.3 Anion Gap 14 BUN 42 H Creatinine 3.0 H D Estim Creat Clear Calc 19.3 L eGFR 17 L BUN/Creatinine Ratio 14 Glucose 142 H Calculated Osmolality 288 Lactic Acid 2.9 H 2.9 H Calcium 9.1 Corrected Calcium 9.1 Phosphorus 5.9 H Magnesium 2.0 Total Bilirubin 1.3 H D AST 37 H ALT 22 Alkaline Phosphatase 165 H Total Protein 6.5 Albumin 4.0 Globulin 2.5 Albumin/Globulin Ratio 1.6 Vitamin B12 774 25-OH Vitamin D Total Folate 8.44 Free T4 Thyroxine (T4) Free T3 pg/dL Ur Random Creatinine Ur Random Urea Nitrogn Hepatitis A IgM Ab Non Reactive Hep Bs Antigen Non Reactive Hep B Core IgM Ab Non Reactive Hepatitis C Antibody Non Reactive 01/25/25 01/25/25 01/25/25 11:19 14:35 17:30 WBC RBC Hgb Hct MCV MCH MCHC RDW Std Deviation Plt Count Neut % (Auto) Lymph % (Auto) [place] % (Auto) Eos % (Auto) Baso % (Auto) Neut # (Auto) Lymph # (Auto) [place] # (Auto) Eos # (Auto) Baso # (Auto) Immature Gran # (Auto) Absolute Nucleated RBC Immature Gran % Nucleated RBC % VBG pH VBG pCO2 VBG pO2 VBG O2 Sat ([place]) VBG Base Excess Sodium Potassium Chloride Carbon Dioxide Anion Gap BUN Creatinine Estim Creat Clear Calc eGFR BUN/Creatinine Ratio Glucose Calculated Osmolality Lactic Acid 3.5 H 2.6 H Calcium Corrected Calcium Phosphorus Magnesium Total Bilirubin AST ALT Alkaline Phosphatase Total Protein Albumin Globulin Albumin/Globulin Ratio Vitamin B12 25-OH Vitamin D Total Folate Free T4 1.15 Thyroxine (T4) 8.2 Free T3 pg/dL 0.8 L Ur Random Creatinine Ur Random Urea Nitrogn Hepatitis A IgM Ab Hep Bs Antigen Hep B Core IgM Ab Hepatitis C Antibody 01/25/25 01/25/25 01/25/25 21:29 23:32 23:51 WBC RBC Hgb Hct MCV MCH MCHC RDW Std Deviation Plt Count Neut % (Auto) Lymph % (Auto) [place] % (Auto) Eos % (Auto) Baso % (Auto) Neut # (Auto) Lymph # (Auto) [place] # (Auto) Eos # (Auto) Baso # (Auto) Immature Gran # (Auto) Absolute Nucleated RBC Immature Gran % Nucleated RBC % VBG pH VBG pCO2 VBG pO2 VBG O2 Sat ([place]) VBG Base Excess Sodium Potassium Chloride Carbon Dioxide Anion Gap BUN Creatinine Estim Creat Clear Calc eGFR BUN/Creatinine Ratio Glucose Calculated Osmolality Lactic Acid 2.1 H 1.7 Calcium Corrected Calcium Phosphorus Magnesium Total Bilirubin AST ALT Alkaline Phosphatase Total Protein Albumin Globulin Albumin/Globulin Ratio Vitamin B12 25-OH Vitamin D Total Folate Free T4 Thyroxine (T4) Free T3 pg/dL Ur Random Creatinine 157 H Ur Random Urea Nitrogn 208.0 L Hepatitis A IgM Ab Hep Bs Antigen Hep B Core IgM Ab Hepatitis C Antibody 01/26/25 05:17 WBC 11.7 H RBC 3.91 L Hgb 9.6 L Hct 30.5 L MCV 78 L MCH 24.6 L MCHC 31.5 RDW Std Deviation 43.4 Plt Count 253 D Neut % (Auto) 77 Lymph % (Auto) 11 [place] % (Auto) 10 Eos % (Auto) 1 Baso % (Auto) 1 Neut # (Auto) 8.9 H Lymph # (Auto) 1.3 [place] # (Auto) 1.2 H Eos # (Auto) 0.1 Baso # (Auto) 0.1 Immature Gran # (Auto) 0.09 H Absolute Nucleated RBC 0.00 Immature Gran % 1 H Nucleated RBC % 0 VBG pH 7.43 VBG pCO2 37 VBG pO2 59 H VBG O2 Sat ([place]) 92 L VBG Base Excess 0 Sodium 137 Potassium 4.2 Chloride 97 L Carbon Dioxide 23.8 Anion Gap 16 BUN 39 H Creatinine 3.4 H Estim Creat Clear Calc 17.0 L eGFR 14 L* BUN/Creatinine Ratio 11 L Glucose 149 H Calculated Osmolality 286 Lactic Acid Calcium 9.1 Corrected Calcium 9.1 Phosphorus 6.8 H Magnesium 2.2 Total Bilirubin 1.0 AST 25 ALT 16 Alkaline Phosphatase 139 H D Total Protein 6.9 Albumin 4.0 Globulin 2.9 Albumin/Globulin Ratio 1.4 Vitamin B12 25-OH Vitamin D Total 16.2 Folate Free T4 Thyroxine (T4) Free T3 pg/dL Ur Random Creatinine Ur Random Urea Nitrogn Hepatitis A IgM Ab Hep Bs Antigen Hep B Core IgM Ab Hepatitis C Antibody ABG Interpretation ABG results: 01/26/25 05:17 VBG pH 7.43 VBG pCO2 37 VBG pO2 59 H VBG Base Excess 0 Quality Measures Quality Measures VTE prophylaxis Advance care planning discussed with:: patient Assessment & Plan Assessment Current Active Medications: Generic Name Dose Route Start Last Admin Trade Name Freq PRN Reason Stop Dose Admin Acetaminophen 650 mg 01/20/25 16:47 01/24/25 11:52 Acetaminophen 325 Mg Tablet PO 02/19/25 16:46 650 mg Q6H PRN Administration PAIN SCALE 1-3 (mild Acetaminophen 650 mg 01/20/25 16:47 01/24/25 19:47 Acetaminophen 325 Mg Tablet PO 02/19/25 16:46 650 mg Q6H PRN Administration Fever >100.4 Albuterol/Ipratropium 3 ml 01/20/25 18:38 Albuterol/Ipratropium (Duoneb) Rt Lisset 3 Ml Nebu INH 02/19/25 18:37 Q6HRRT PRN Wheezing Dextrose 25 ml 01/20/25 18:39 Dextrose 50%-Water Inj 50 Ml Syringe IV 02/19/25 18:38 Q15MIN PRN BG 50-70 responsive npo pt Dextrose 50 ml 01/20/25 18:39 Dextrose 50%-Water Inj 50 Ml Syringe IV 02/19/25 18:38 Q15MIN PRN BG <50 OR BG <70 & pt unresponsive Docusate Sodium 200 mg 01/24/25 21:00 01/25/25 08:23 Docusate Sod 100 Mg Capsule PO 02/23/25 20:59 200 mg QDAY REYNA Administration Protocol Escitalopram Oxalate 20 mg 01/24/25 16:30 01/25/25 08:23 Escitalopram Oxalate 10 Mg Tablet PO 02/23/25 16:29 20 mg QDAY REYNA Administration Ferrous Sulfate 325 mg 01/21/25 11:30 01/25/25 08:23 Ferrous Sulf 325 Mg Tablet PO 02/20/25 11:29 325 mg QOD REYNA Administration Furosemide 20 mg 01/22/25 18:00 01/24/25 05:38 Furosemide Inj 10 Mg/Ml Vial 2 Ml IVP 02/20/25 17:59 20 mg BIDD REYNA Administration Glucagon 1 mg 01/20/25 18:39 Glucagon Inj 1 Mg Vial IM Q15MIN PRN BG <70, and no IV access Glycerin 1 each 01/24/25 20:53 01/25/25 01:20 Glycerin, Adult 1 Ea Supp MS 02/23/25 20:52 1 each QDAY PRN Administration CONSTIPATION Heparin Sodium (Porcine) 5,000 unit 01/20/25 21:00 01/25/25 20:47 Heparin Sod Inj 5000 Unit/Ml Vial SC 02/03/25 20:59 5,000 unit BID REYNA Administration Hydromorphone HCl 0.5 mg 01/26/25 05:18 01/26/25 06:14 Hydromorphone Inj 2 Mg/Ml Vial IVP 01/29/25 00:09 0.5 mg Q6H PRN Administration BREAKTHROUGH PAIN (SEVERE) Protocol Albumin Human 25 gm in 100 mls @ 100 mls/hr 01/25/25 15:11 01/25/25 18:29 Albuminar-25 Ivpb IV 01/28/25 15:10 Infused QDAY REYNA Infusion Ceftriaxone Sodium/Dextrose 1 gm in 50 mls @ 100 mls/hr 01/25/25 15:30 01/25/25 18:29 Rocephin/D5w 1gm Iv Premix IV 02/01/25 15:29 Infused QDAY REYNA Infusion Ibuprofen 400 mg 01/24/25 14:01 01/25/25 22:34 Ibuprofen Tab 400 Mg Tablet PO 02/23/25 14:00 400 mg Q6HR PRN Administration Pain 4-6 Or Fever > 100.4 Protocol Insulin Human Lispro 0 unit 01/20/25 21:00 01/25/25 20:56 Insulin Lispro (Admelog) 1 Unit/0.01 Ml Unit SC 02/19/25 20:59 1 unit ACHS REYNA Administration Protocol Lactulose 20 gm 01/25/25 17:00 01/26/25 05:56 Lactulose Syrup 20 Gm/30 Ml Udc PO 02/24/25 16:59 20 gm QID REYNA Administration Protocol Levothyroxine Sodium 112 mcg 01/21/25 06:00 01/26/25 05:57 Levothyroxine Sodium 112 Mcg Tablet PO 02/20/25 05:59 112 mcg ACBR REYNA Administration Lidocaine 1 patch 01/21/25 10:22 Lidocaine 5% 1 Patch TOP 02/20/25 10:21 UD PRN Back pain Protocol Liothyronine Sodium 10 mcg 01/25/25 14:15 01/25/25 14:23 Liothyronine Sod 5 Mcg Tablet PO 02/24/25 14:14 Not Given QDAY REYNA Loratadine 10 mg 01/21/25 09:00 01/25/25 08:23 Loratadine 10 Mg Tablet PO 02/20/25 08:59 10 mg QDAY REYNA Administration Metoprolol Succinate 50 mg 01/21/25 09:00 Metoprolol Succinate Xl 25 Mg Tabcr PO 02/20/25 08:59 QDAY REYNA Midodrine 15 mg 01/24/25 22:00 01/26/25 05:57 Midodrine 5 Mg Tablet PO 02/23/25 21:59 15 mg TID REYNA Administration Ondansetron HCl 4 mg 01/20/25 16:47 01/26/25 06:14 Ondansetron Inj 2 Mg/Ml Inj 2 Ml IVP 02/19/25 16:46 4 mg Q6H PRN Administration NAUSEA OR VOMITING Protocol Pantoprazole Sodium 40 mg 01/21/25 09:00 01/25/25 20:48 Pantoprazole Inj 40 Mg Vial IVP 02/20/25 08:59 40 mg BID REYNA Administration Pregabalin 150 mg 01/20/25 21:00 01/25/25 20:47 Pregabalin 75 Mg Capsule PO 02/19/25 20:59 150 mg BID REYNA Administration Primidone 250 mg 01/21/25 10:30 01/25/25 08:22 Primidone 50 Mg Tablet PO 01/26/25 10:29 250 mg QDAY REYNA Administration Primidone 50 mg 01/21/25 21:00 01/25/25 20:48 Primidone 50 Mg Tablet PO 01/26/25 20:59 50 mg HS REYNA Administration Rifaximin 550 mg 01/25/25 21:00 01/25/25 20:47 Rifaximin 550 Mg Tablet PO 02/01/25 20:59 550 mg BID REYNA Administration Spironolactone 25 mg 01/21/25 09:00 01/25/25 08:23 Spironolactone 25 Mg Tablet PO 02/20/25 08:59 25 mg BID REYNA Administration Zolpidem Tartrate 5 mg 01/25/25 21:00 01/26/25 01:56 Zolpidem 5 Mg Tablet PO 02/23/25 20:59 Not Given HS [facility] Plan Assessment: 64 year-old female with PMHx of alcoholic liver cirrhosis, COPD on home O2, hypothyroidism, asthma, HTN, T2DM and anxiety who presented to the ED with worsening ascites and abdominal discomfort. Admitted under observation for therapeutic/diagnostic paracentesis. Acute encephalopathy?new onset New onset fever, hypotension, low O2 saturations, tachycardia ?Presyncope ?Constipation ?Seizures Low suspicion of stroke as no focal neurological findings. Patient did have paracentesis which removed 8.4 L on 01/21/2025. Blood pressure had been soft since. Patient has been getting IV albumin. Patient's MAP dropped to 48 overnight she was given a bolus of lactated Ringer's to 50 cc and MAP improved to greater than 60 Patient has a bilateral tremor of the arms which is new in onset since 2 days ago, patient is known to have tremors of the hands. Patient has had no alcohol since last year KUB showed large stool in rectosigmoid, few air distended small bowel loop ? EEG pending read ? Neurology following, see recommendations ? Cardiology following, see recommendations ? Added pip-tazo 3.375 IV every 8 hours ? Increased midodrine to 15 mg 3 times daily ? Resumed escitalopram 20 mg daily home dose ? Holding metoclopramide ? Encourage BM movement Constipation Abdominal distention?not improving Patient has not had a bowel movement in a few days KUB showed large stool in rectosigmoid, few air distended small bowel loop CT abdomen pelvis without contrast ordered today ? N.p.o. now ? Dr Bradley consulted (general surgery), see recommendations ? Orogastric tube placed today ? Will need tapwater enema and lactulose Acute kidney injury new onset Prerenal ?Hepatorenal syndrome Likely secondary to hypotension Creatinine 3.4, uptrending Baseline Cr 0.9 ? Patient given 1 L fluid bolus normal saline ? Holding diuretics ? Monitor renal panel ? Renally dose meds, avoid overdiuresis and NEPHROTOXINS Decompensated alcoholic liver cirrhosis Significant ascites ?Hepatic encephalopathy Significant alcohol use history, cirrhosis diagnosed in 08/2023. Has been on SPIRONOLACTONE, presenting with 1 month of worsening abdominal ascites. Abdominal CT showed cirrhosis, significant ascites, prominent splenomegaly, anasarca, esophageal and perigastric varices, no bowel obstruction. Ultrasound gallbladder showed distended gallbladder, negative for cholelithiasis, mildly thickened gallbladder wall likely from ascites. Anasarca on exam, with 2+ bilateral extremity edema extending above the knee. MELD score 9 equates to 6% mortality in 3 months. Child-Wilhelm score 7, Class B, indication for transplant evaluation. Paracentesis removed 8.4 L fluids, ALBUMIN was given pre and post para. Paracentesis analysis: WBC 202, peritoneal RBC 1000, total protein 4, albumin 2.2, LD H108, glucose 137, amylase 29 SAAG < 1.1 g/dL Portal hypertension is not necessarily the cause of ascites. ? Paracentesis tomorrow, max 5 L drainage ? Give albumin pre-paracentesis ? HOLDING LASIX 20 BID for lower extremity edema. ? Ceftriaxone 1 g every 24 hours started today for hepatic encephalopathy ppx ? Rifaximin 550 mg p.o. twice daily started today for hepatic encephalopathy ppx ? Continue SPIRONOLACTONE 25 mg BID ? Fluid restriction ? Sodium restriction of 2 g/day Hypothyroidism TSH 2.33 Free T4 1.15 Thyroxine T3 48.2 Free T3 0.8 Patient was taking liothyronine 20 mcg daily but was not started in hospital - Liothyronine 10 mcg daily started today, half of patient's home dose, under Dr. Jarvis's (endocrinology) recommendation ? Levothyroxine 112 mcg daily Microcytic anemia (stable) Grade 1 esophageal varices Mild thrombocytopenia (resolved) Hgb 8.9, baseline 11.4. Likely iron deficiency versus cirrhosis. CT showed esophageal and perigastric varices. Reports chronic, recurrent hemorrhoidal bleed, but denies dark stool or upper GI bleed. Had an EGD last year and was abnormal. She is on a 5-year colonoscopy scheduled for colonic polyps, last colonoscopy 5 years ago. B12 and folate WNL. Iron stores are low. EGD showed grade 1 lower third esophageal varices, moderate patchy hemorrhagic characteristic of the gastric antrum. GI recommended outpatient colonoscopy. Hemoglobin stable. ? Transfuse if Hgb less than 8 ? Will need PROPRANOLOL for variceal prophylaxis, if BP can tolerate ? Continue daily oral iron supplements HTN Asymptomatic sinus bradycardia Currently BP soft, normocardic. EKG shows sinus bradycardia, likely cirrhosis related on oral dysfunction versus BETA-BLOCKERS. ? Continue home LEVOTHYROXINE 112 mcg AC BR ? Consider resume home METOPROLOL when able ? Continue MIDODRINE 10 mg TID COPD, asthma Chronic respiratory failure, on home 2 L O2 No signs of asthma or COPD exacerbation ? DuoNebs q.6h. PRN ? Will discharge on TREGY T2DM A1c 7.7 from 08/2024. ? INSULIN sliding scale ? Accu-Cheks Elevated lipase Lipase 74, no nausea or vomiting, no epigastric pain subjectively on exam. No radiographic findings of acute pancreatitis. ? Continue to monitor Electrolyte abnormalities ? Daily labs, replete as needed Anxiety ? Continue home LYRICA Health maintenance Diet: Renal diet GI prophylaxis: PROTONIX DVT prophylaxis: SCDs Antibiotics: Ceftriaxone and rifaximin CODE STATUS: Full code Disposition: Admitted under observation for paracentesis Case discussed with my attending Dr. Gamboa and senior resident Dr. Malika Kidd MD PGY-1 Attending Provider Attestation/Addendum I, Judy Gamboa, DO, attest that I was physically present for the ledesma portions of the service and evaluated the patient with the resident and I reviewed and discussed the case with the resident and agree with the resident's findings and plans of care as documented above Patient seen and eval this a.m. Patient complains of her abdomen due to worsening distention and discomfort. Per team, patient has had worsening distention in the past few days despite receiving lactulose. She has not been able to have any bowel movements. Will place NG tube to decompress stomach as it appears to be very distended on abdominal x-ray. Surgeon was called for further recommendations due to concern for SBO versus ischemic bowel which can be exacerbated by lack to Eliquis. However, lactic acid has been downtrending. CT abdomen and pelvis was obtained which shows cirrhosis with moderate ascites, significant splenomegaly suspicion for ischemic right colon and possible SBO pattern. However, case was discussed between resident and surgeon who does not feel that patient has an SBO or ischemic bowel. Recommends continuing with lactulose at this time. Case was also discussed with nephrology, no plans for dialysis at this time. Urine appears to be concentrated and patient had about 300 cc of urinary output from the a.m. per nurse at bedside. Glycerin suppository was given to induce bowel movement. Will continue to monitor patient closely. Case was also discussed with cardiology who has been following and states that the patient has no pulmonary hypertension and encouraged IV fluid hydration. Patient has otherwise been receiving IV albumin and diuretics have been held at this time.
--- NOTE | 2025-01-26 07:25 | ESPR_ITS ---
Documentation for date of: 01/26/25 Subjective Subjective Interval history: Patient seen at bedside accompanied by family. Continues to be sleepy upon exam. Exam Vital Signs Temp Pulse Resp BP Pulse Ox O2 Del Method O2 Flow Rate 97.9 F 115 H 17 90/49 L 98 Nasal Cannula 4.5 01/26/25 04:00 01/26/25 05:57 01/26/25 04:00 01/26/25 05:57 01/26/25 04:00 01/26/25 04:00 01/26/25 04:00 Narrative Exam General: No acute distress, lying in bed HENT: Normocephalic, atraumatic, hearing intact to conversation at normal volume\ Neck: Supple, non-tender Lungs: Non-labored respirations, symmetric chest rise Heart: Peripheral pulses intact bilaterally Abdomen: Distended Skin: Skin is warm, dry, no rashes or lesions. Psychiatric: Cooperative, appropriate mood and affect Neurologic: Mental status: Orientation: AOx2 Communication: Patient is cooperative and can follow simple instructions, though lethargic Language: Speech fluent, normal rate and volume, comprehension intact Cranial nerves: CN II: Visual suh intact CN III: Pupils equal, round, and reactive to light CN III, IV, : No gaze deviation, no nystagmus Horizontal pursuit: intact Vertical pursuit: intact Ptosis: none CN V: Facial sensation to light touch intact bilaterally at the forehead, cheeks, and jaw line CN VII: Face symmetric, no facial droop appreciated CN VIII: Able to hear and respond to conversation at normal volume, intact to finger rub CN IX, X: Palate elevation symmetric, uvula midline CN XI: Head turn and shoulder shrug strong, symmetric bilaterally CN XII: Normal tongue protrusion without deviation, no fasciculations Motor: No myoclonic jerking observed Muscle strength: b/l UE and LE 3/5 but easily fatigued Sensory: RUE: Light touch intact LUE: Light touch intact RLE: Light touch intact LLE: Light touch intact Reflexes: Biceps (C5-6): R 2+ L 2+ Brachioradialis (C5-6): R 2+ L 2+ Triceps (C7-8): R 2+ L 2+ Patellae (L3-4): R 2+ L 2+ Achilles (S1-2):R 2+ L 2+ Objective Labs 01/27/25 05:51 01/27/25 05:51 Labs: Laboratory Results - last 24 hr 01/25/25 01/25/25 01/25/25 05:56 08:29 10:52 WBC 9.8 D RBC 3.78 L Hgb 9.2 L Hct 29.3 L MCV 78 L MCH 24.3 L MCHC 31.4 RDW Std Deviation 43.6 Plt Count 145 D Neut % (Auto) 79 Lymph % (Auto) 9 L [place] % (Auto) 8 Eos % (Auto) 3 Baso % (Auto) 1 Neut # (Auto) 7.7 Lymph # (Auto) 0.9 L [place] # (Auto) 0.8 Eos # (Auto) 0.3 Baso # (Auto) 0.1 Immature Gran # (Auto) 0.07 H Absolute Nucleated RBC 0.00 Immature Gran % 1 H Nucleated RBC % 0 VBG pH VBG pCO2 VBG pO2 VBG O2 Sat ([place]) VBG Base Excess Sodium 138 Potassium 4.3 Chloride 98 Carbon Dioxide 26.3 Anion Gap 14 BUN 42 H Creatinine 3.0 H D Estim Creat Clear Calc 19.3 L eGFR 17 L BUN/Creatinine Ratio 14 Glucose 142 H Calculated Osmolality 288 Lactic Acid 2.9 H 2.9 H Calcium 9.1 Corrected Calcium 9.1 Phosphorus 5.9 H Magnesium 2.0 Total Bilirubin 1.3 H D AST 37 H ALT 22 Alkaline Phosphatase 165 H Total Protein 6.5 Albumin 4.0 Globulin 2.5 Albumin/Globulin Ratio 1.6 Vitamin B12 774 25-OH Vitamin D Total Folate 8.44 Free T4 Thyroxine (T4) Free T3 pg/dL Ur Random Creatinine Ur Random Urea Nitrogn Hepatitis A IgM Ab Non Reactive Hep Bs Antigen Non Reactive Hep B Core IgM Ab Non Reactive Hepatitis C Antibody Non Reactive 01/25/25 01/25/25 01/25/25 11:19 14:35 17:30 WBC RBC Hgb Hct MCV MCH MCHC RDW Std Deviation Plt Count Neut % (Auto) Lymph % (Auto) [place] % (Auto) Eos % (Auto) Baso % (Auto) Neut # (Auto) Lymph # (Auto) [place] # (Auto) Eos # (Auto) Baso # (Auto) Immature Gran # (Auto) Absolute Nucleated RBC Immature Gran % Nucleated RBC % VBG pH VBG pCO2 VBG pO2 VBG O2 Sat ([place]) VBG Base Excess Sodium Potassium Chloride Carbon Dioxide Anion Gap BUN Creatinine Estim Creat Clear Calc eGFR BUN/Creatinine Ratio Glucose Calculated Osmolality Lactic Acid 3.5 H 2.6 H Calcium Corrected Calcium Phosphorus Magnesium Total Bilirubin AST ALT Alkaline Phosphatase Total Protein Albumin Globulin Albumin/Globulin Ratio Vitamin B12 25-OH Vitamin D Total Folate Free T4 1.15 Thyroxine (T4) 8.2 Free T3 pg/dL 0.8 L Ur Random Creatinine Ur Random Urea Nitrogn Hepatitis A IgM Ab Hep Bs Antigen Hep B Core IgM Ab Hepatitis C Antibody 01/25/25 01/25/25 01/25/25 21:29 23:32 23:51 WBC RBC Hgb Hct MCV MCH MCHC RDW Std Deviation Plt Count Neut % (Auto) Lymph % (Auto) [place] % (Auto) Eos % (Auto) Baso % (Auto) Neut # (Auto) Lymph # (Auto) [place] # (Auto) Eos # (Auto) Baso # (Auto) Immature Gran # (Auto) Absolute Nucleated RBC Immature Gran % Nucleated RBC % VBG pH VBG pCO2 VBG pO2 VBG O2 Sat ([place]) VBG Base Excess Sodium Potassium Chloride Carbon Dioxide Anion Gap BUN Creatinine Estim Creat Clear Calc eGFR BUN/Creatinine Ratio Glucose Calculated Osmolality Lactic Acid 2.1 H 1.7 Calcium Corrected Calcium Phosphorus Magnesium Total Bilirubin AST ALT Alkaline Phosphatase Total Protein Albumin Globulin Albumin/Globulin Ratio Vitamin B12 25-OH Vitamin D Total Folate Free T4 Thyroxine (T4) Free T3 pg/dL Ur Random Creatinine 157 H Ur Random Urea Nitrogn 208.0 L Hepatitis A IgM Ab Hep Bs Antigen Hep B Core IgM Ab Hepatitis C Antibody 01/26/25 05:17 WBC 11.7 H RBC 3.91 L Hgb 9.6 L Hct 30.5 L MCV 78 L MCH 24.6 L MCHC 31.5 RDW Std Deviation 43.4 Plt Count 253 D Neut % (Auto) 77 Lymph % (Auto) 11 [place] % (Auto) 10 Eos % (Auto) 1 Baso % (Auto) 1 Neut # (Auto) 8.9 H Lymph # (Auto) 1.3 [place] # (Auto) 1.2 H Eos # (Auto) 0.1 Baso # (Auto) 0.1 Immature Gran # (Auto) 0.09 H Absolute Nucleated RBC 0.00 Immature Gran % 1 H Nucleated RBC % 0 VBG pH 7.43 VBG pCO2 37 VBG pO2 59 H VBG O2 Sat ([place]) 92 L VBG Base Excess 0 Sodium 137 Potassium 4.2 Chloride 97 L Carbon Dioxide 23.8 Anion Gap 16 BUN 39 H Creatinine 3.4 H Estim Creat Clear Calc 17.0 L eGFR 14 L* BUN/Creatinine Ratio 11 L Glucose 149 H Calculated Osmolality 286 Lactic Acid Calcium 9.1 Corrected Calcium 9.1 Phosphorus 6.8 H Magnesium 2.2 Total Bilirubin 1.0 AST 25 ALT 16 Alkaline Phosphatase 139 H D Total Protein 6.9 Albumin 4.0 Globulin 2.9 Albumin/Globulin Ratio 1.4 Vitamin B12 25-OH Vitamin D Total 16.2 Folate Free T4 Thyroxine (T4) Free T3 pg/dL Ur Random Creatinine Ur Random Urea Nitrogn Hepatitis A IgM Ab Hep Bs Antigen Hep B Core IgM Ab Hepatitis C Antibody ABG Interpretation ABG results: 01/26/25 05:17 VBG pH 7.43 VBG pCO2 37 VBG pO2 59 H VBG Base Excess 0 Quality Measures Quality Measures VTE prophylaxis Advance care planning discussed with:: patient and child Assessment & Plan Assessment Current Active Medications: Generic Name Dose Route Start Last Admin Trade Name Freq PRN Reason Stop Dose Admin Acetaminophen 650 mg 01/20/25 16:47 01/24/25 11:52 Acetaminophen 325 Mg Tablet PO 02/19/25 16:46 650 mg Q6H PRN Administration PAIN SCALE 1-3 (mild Acetaminophen 650 mg 01/20/25 16:47 01/24/25 19:47 Acetaminophen 325 Mg Tablet PO 02/19/25 16:46 650 mg Q6H PRN Administration Fever >100.4 Albuterol/Ipratropium 3 ml 01/20/25 18:38 Albuterol/Ipratropium (Duoneb) Rt Lisset 3 Ml Nebu INH 02/19/25 18:37 Q6HRRT PRN Wheezing Dextrose 25 ml 01/20/25 18:39 Dextrose 50%-Water Inj 50 Ml Syringe IV 02/19/25 18:38 Q15MIN PRN BG 50-70 responsive npo pt Dextrose 50 ml 01/20/25 18:39 Dextrose 50%-Water Inj 50 Ml Syringe IV 02/19/25 18:38 Q15MIN PRN BG <50 OR BG <70 & pt unresponsive Docusate Sodium 200 mg 01/24/25 21:00 01/25/25 08:23 Docusate Sod 100 Mg Capsule PO 02/23/25 20:59 200 mg QDAY REYNA Administration Protocol Escitalopram Oxalate 20 mg 01/24/25 16:30 01/25/25 08:23 Escitalopram Oxalate 10 Mg Tablet PO 02/23/25 16:29 20 mg QDAY REYNA Administration Ferrous Sulfate 325 mg 01/21/25 11:30 01/25/25 08:23 Ferrous Sulf 325 Mg Tablet PO 02/20/25 11:29 325 mg QOD REYNA Administration Furosemide 20 mg 01/22/25 18:00 01/24/25 05:38 Furosemide Inj 10 Mg/Ml Vial 2 Ml IVP 02/20/25 17:59 20 mg BIDD REYNA Administration Glucagon 1 mg 01/20/25 18:39 Glucagon Inj 1 Mg Vial IM Q15MIN PRN BG <70, and no IV access Glycerin 1 each 01/24/25 20:53 01/25/25 01:20 Glycerin, Adult 1 Ea Supp UT 02/23/25 20:52 1 each QDAY PRN Administration CONSTIPATION Heparin Sodium (Porcine) 5,000 unit 01/20/25 21:00 01/25/25 20:47 Heparin Sod Inj 5000 Unit/Ml Vial SC 02/03/25 20:59 5,000 unit BID REYNA Administration Hydromorphone HCl 0.5 mg 01/26/25 05:18 01/26/25 06:14 Hydromorphone Inj 2 Mg/Ml Vial IVP 01/29/25 00:09 0.5 mg Q6H PRN Administration BREAKTHROUGH PAIN (SEVERE) Protocol Albumin Human 25 gm in 100 mls @ 100 mls/hr 01/25/25 15:11 01/25/25 18:29 Albuminar-25 Ivpb IV 01/28/25 15:10 Infused QDAY REYNA Infusion Ceftriaxone Sodium/Dextrose 1 gm in 50 mls @ 100 mls/hr 01/25/25 15:30 01/25/25 18:29 Rocephin/D5w 1gm Iv Premix IV 02/01/25 15:29 Infused QDAY REYNA Infusion Ibuprofen 400 mg 01/24/25 14:01 01/25/25 22:34 Ibuprofen Tab 400 Mg Tablet PO 02/23/25 14:00 400 mg Q6HR PRN Administration Pain 4-6 Or Fever > 100.4 Protocol Insulin Human Lispro 0 unit 01/20/25 21:00 01/25/25 20:56 Insulin Lispro (Admelog) 1 Unit/0.01 Ml Unit SC 02/19/25 20:59 1 unit ACHS REYNA Administration Protocol Lactulose 20 gm 01/25/25 17:00 01/26/25 05:56 Lactulose Syrup 20 Gm/30 Ml Udc PO 02/24/25 16:59 20 gm QID REYNA Administration Protocol Levothyroxine Sodium 112 mcg 01/21/25 06:00 01/26/25 05:57 Levothyroxine Sodium 112 Mcg Tablet PO 02/20/25 05:59 112 mcg ACBR REYNA Administration Lidocaine 1 patch 01/21/25 10:22 Lidocaine 5% 1 Patch TOP 02/20/25 10:21 UD PRN Back pain Protocol Liothyronine Sodium 10 mcg 01/25/25 14:15 01/25/25 14:23 Liothyronine Sod 5 Mcg Tablet PO 02/24/25 14:14 Not Given QDAY REYNA Loratadine 10 mg 01/21/25 09:00 01/25/25 08:23 Loratadine 10 Mg Tablet PO 02/20/25 08:59 10 mg QDAY REYNA Administration Metoprolol Succinate 50 mg 01/21/25 09:00 Metoprolol Succinate Xl 25 Mg Tabcr PO 02/20/25 08:59 QDAY REYNA Midodrine 15 mg 01/24/25 22:00 01/26/25 05:57 Midodrine 5 Mg Tablet PO 02/23/25 21:59 15 mg TID REYNA Administration Ondansetron HCl 4 mg 01/20/25 16:47 01/26/25 06:14 Ondansetron Inj 2 Mg/Ml Inj 2 Ml IVP 02/19/25 16:46 4 mg Q6H PRN Administration NAUSEA OR VOMITING Protocol Pantoprazole Sodium 40 mg 01/21/25 09:00 01/25/25 20:48 Pantoprazole Inj 40 Mg Vial IVP 02/20/25 08:59 40 mg BID REYNA Administration Pregabalin 150 mg 01/20/25 21:00 01/25/25 20:47 Pregabalin 75 Mg Capsule PO 02/19/25 20:59 150 mg BID REYNA Administration Primidone 250 mg 01/21/25 10:30 01/25/25 08:22 Primidone 50 Mg Tablet PO 01/26/25 10:29 250 mg QDAY REYNA Administration Primidone 50 mg 01/21/25 21:00 01/25/25 20:48 Primidone 50 Mg Tablet PO 01/26/25 20:59 50 mg HS REYNA Administration Rifaximin 550 mg 01/25/25 21:00 01/25/25 20:47 Rifaximin 550 Mg Tablet PO 02/01/25 20:59 550 mg BID REYNA Administration Spironolactone 25 mg 01/21/25 09:00 01/25/25 08:23 Spironolactone 25 Mg Tablet PO 02/20/25 08:59 25 mg BID REYNA Administration Zolpidem Tartrate 5 mg 01/25/25 21:00 01/26/25 01:56 Zolpidem 5 Mg Tablet PO 02/23/25 20:59 Not Given HS REYNA Plan # Bilateral tremors vs myoclonic jerking vs seizure, resolved # Aleterd mental status In the setting of alcohol induced liver cirrhosis, DONNA, esophageal varices, COPD on home 2 L O2, type 2 diabetes, mild hyperkalemia Patient has had multiple episodes of altered mental status. On 01/22 patient was obtunded with generalized weakness stroke alert was called and symptoms resolved without intervention. NIHSS was [address] head was negative for hemorrhage. Another rapid response was called on 01/24 and 1130 for altered mental status with AO x 0, bilateral tremors concerning for seizures. Vitals reviewed and were WNL. Glucose was WNL. Head CT showed no acute findings. EKG showed sinus tachycardia. Ammonia was <10, troponin was negative. Remained hemodynamically stable otherwise. Upon exam patient exhibited bilateral upper and lower extremity myoclonic jerking without altered mental status Labs significant for microcytic anemia, mildly elevated potassium at 5.2 now within normal limits, elevated creatinine at 2.1, AST elevated 36, alk phos elevated 149. Ammonia, B12, folate, TSH, free T4 WNL. A1c 7.7 from 08/2024. Free T3 low 0.8 Patient has had multiple episodes of fevers with Tmax at 102.8 today. Patient also required up titration of supplemental O2 now saturating appropriately on 3 L oxygen. EEG: diffuse slowing c/w hepatic encephalopathy DDX: Seizures, electrolyte abnormalities, Wernicke's encephalopathy, DONNA/uremia, decompensated cirrhosis Plan: - Hold metoclopromide - Continue home Escitalopram and Primidone - Pending total T3, peritoneal fluid cx, blood cx - Management of abnormal electrolytes per primary - Encourage patient to have BM # Constipation KUB showed large stool in rectosigmoid, few air distended small bowel loop Patient had one BM today, soft in consistency Plan: - Encourage BM #DONNA #Prerenal Likely secondary to hypotension Baseline Cr 0.9 Plan: - Managed per primary # Decompensated alcoholic liver cirrhosis # Grade 1 esophageal varices Removed 8.7L from peritoneal fluid Abdominal CT showed cirrhosis, significant ascites, prominent splenomegaly, anasarca, esophageal and perigastric varices, no bowel obstruction. Ultrasound gallbladder showed distended gallbladder, negative for cholelithiasis, mildly thickened gallbladder wall likely from ascites. Paracentesis analysis: WBC 202, peritoneal RBC 1000, total protein 4, albumin 2.2, LD H108, glucose 137, amylase 29 SAAG < 1.1 g/dL Portal hypertension is not necessarily the cause of ascites. CT a/p w/o: Cirrhosis with moderate ascites, Significant splenomegaly, Esophageal and perigastric varices, Suspicious for ischemic right colon, Small bowel obstruction pattern Plan: - Management per primary - repeat paracentesis 01/27 # Hypothyroidism TSH 2.33 WNL Free T4 1.15 WNL Free T3 0.8 low Home med: Liothyronine 20 mcg daily, levothyroxine 112 mcg daily Plan: - Management per primary - Liothyronine 10 mcg daily, Levothyroxine 112 mcg daily # Hypertension # Asymptomatic sinus bradycardia Currently BP soft, normocardic EKG shows sinus bradycardia, likely cirrhosis related on oral dysfunction versus beta blockers Plan: - Management per primary # COPD # Asthma # Chronic respiratory failure, on home 2 L O2 No signs of asthma or COPD exacerbation Plan: - Management per primary # T2DM A1c 7.7 from 08/2024. Plan: - Management per primary # Anxiety Plan: - Management per primary - continue home Pregabalin Plan discussed with Dr. Eufemia Bernard, PGY1 Attending Provider Attestation/Addendum I personally have seen and examined the patient at the bedside and I agreed with the resident's findings, assessment and plan of care. Patient's mental status is gradually improving as well as the asterixis and myoclonic jerks from hepatic encephalopathy. Will continue to monitor her closely
[2025-01-26] MEDS: LIOTHYRONINE SOD 5 mCg TABLET 10 MCG PO (08:13)
[2025-01-26] MEDS: ESCITALOPRAM OXALATE 10 MG TABLET 20 MG PO (08:15)
[2025-01-26] MEDS: DOCUSATE SOD 100 MG CAPSULE 200 MG PO (08:15)
[2025-01-26] MEDS: PREGABALIN 75 MG CAPSULE 150 MG PO ×2 (08:15→20:54)
[2025-01-26] MEDS: PRIMIDONE 50 MG TABLET 250 MG PO (08:16)
[2025-01-26] MEDS: ALBUMIN HUMAN 25% IVPB 25 GM/100 ML BTL IV (08:17)
[2025-01-26] MEDS: cefTRIAXone/D5w 1gm IV premix 1 GM/50 ML BAG IV (08:20)
[2025-01-26] MEDS: HEPARIN SOD INJ 5000 UNIT/ML VIAL SC ×2 (08:20→20:56)
[2025-01-26] MEDS: INSULIN LISPRO (AdmeLOG) 1 UNIT/0.01 ML UNIT SC (08:21)
[2025-01-26 08:34] LABS: INR 1.3 (0.9-1.3); Prothrombin Time 13.5 Seconds (9.0-12.2)
--- NOTE | 2025-01-26 08:39 | ESPR_ITS ---
Documentation for date of: 01/26/25 Subjective Subjective Interval history: History of present illness: Maria Elena Mario is a 64 year-old female with PMHx of alcoholic liver cirrhosis, COPD on home O2, hypothyroidism, asthma, HTN, T2DM and anxiety who presented to the ED with worsening abdominal pain and distention. On admission, patient reported worsening LE swelling in EVA LE, worsening over the last few months. She is also reports significant worsening abdominal distention over the last month. Associated with generalized abdominal pain and discomfort, in addition to difficulty laying flat secondary to abdominal distention. Also reports being constipated over the last few weeks. History of liver cirrhosis, diagnosed on recent visit from 08/2023. Previously she had a GI doctor in [place], but currently not following, states she is unsatisfied with this management. She follows up with an GERIATRIC NURSE at [facility] and has been awaiting a referral for a GI doctor in [facility]. She is scheduled for paracentesis next . However, she was sent to the ED for paracentesis but there were no available health record technician in the ED today to perform paracentesis. She has a history of polyposis, follow-up with GI in [place] regularly. She is on a 5-year colonoscopy schedule, last was done 5 years ago and showed polyps. EGD was also done last year which was normal. 01/25/2025 Today patient was seen and examined. Patient stated that she felt a little off, but did not have any new concerns/complaints. Patient stated that she has some abdominal tenderness. Patient denied any fever, chest pain, shortness of breath. Patient consulted to neprhology for DONNA 01/26/2025 No acute overnight events. Patient's blood pressure has been low 90/49 this AM, was given midodrine with improvement of bp. Today patient was seen and examined. Patient is making urine, but states she is not having any bowel movement. Patient states she is still having abdominal pain. Patient denied fever, chest pain, shortness of breath. Exam Vital Signs Temp Pulse Resp BP Pulse Ox O2 Del Method O2 Flow Rate 97.5 F 84 17 112/66 96 Nasal Cannula 3 01/26/25 08:00 01/26/25 08:02 01/26/25 08:02 01/26/25 08:00 01/26/25 08:02 01/26/25 08:00 01/26/25 08:02 Narrative Exam GENERAL APPEARANCE: Awake, no acute distress. HEENT: ?NC, AT. MMM. EOMI, clear conjunctiva. NECK: ?Supple without lymphadenopathy.? No stiffness or restricted ROM. HEART:? Normal rate and regular rhythm, no m/r/g LUNGS:? Bilateral crackles. No wheezes are heard. ABDOMEN: ?Soft, nontender, distended,bowel sounds heard. BACK: No CVAT, no obvious deformity. EXTREMITIES: ?Without cyanosis, clubbing or edema. NEUROLOGICAL: ?Grossly nonfocal. Alert and oriented, moving all 4 extremities. Asterixis bilaterally of upper extremities Skin: ?Warm and dry without any rash. Objective Labs 01/26/25 05:17 01/26/25 05:17 Labs: Laboratory Results - last 24 hr 01/25/25 01/25/25 01/25/25 05:56 08:29 10:52 WBC 9.8 D RBC 3.78 L Hgb 9.2 L Hct 29.3 L MCV 78 L MCH 24.3 L MCHC 31.4 RDW Std Deviation 43.6 Plt Count 145 D Neut % (Auto) 79 Lymph % (Auto) 9 L [place] % (Auto) 8 Eos % (Auto) 3 Baso % (Auto) 1 Neut # (Auto) 7.7 Lymph # (Auto) 0.9 L [place] # (Auto) 0.8 Eos # (Auto) 0.3 Baso # (Auto) 0.1 Immature Gran # (Auto) 0.07 H Absolute Nucleated RBC 0.00 Immature Gran % 1 H Nucleated RBC % 0 PT INR VBG pH VBG pCO2 VBG pO2 VBG O2 Sat ([place]app[place]) VBG Base Excess Sodium 138 Potassium 4.3 Chloride 98 Carbon Dioxide 26.3 Anion Gap 14 BUN 42 H Creatinine 3.0 H D Estim Creat Clear Calc 19.3 L eGFR 17 L BUN/Creatinine Ratio 14 Glucose 142 H Calculated Osmolality 288 Lactic Acid 2.9 H 2.9 H Calcium 9.1 Corrected Calcium 9.1 Phosphorus 5.9 H Magnesium 2.0 Total Bilirubin 1.3 H D AST 37 H ALT 22 Alkaline Phosphatase 165 H Total Protein 6.5 Albumin 4.0 Globulin 2.5 Albumin/Globulin Ratio 1.6 Vitamin B12 774 25-OH Vitamin D Total Folate 8.44 Free T4 Thyroxine (T4) Free T3 pg/dL Ur Random Creatinine Ur Random Urea Nitrogn Hepatitis A IgM Ab Non Reactive Hep Bs Antigen Non Reactive Hep B Core IgM Ab Non Reactive Hepatitis C Antibody Non Reactive 01/25/25 01/25/25 01/25/25 11:19 14:35 17:30 WBC RBC Hgb Hct MCV MCH MCHC RDW Std Deviation Plt Count Neut % (Auto) Lymph % (Auto) [place] % (Auto) Eos % (Auto) Baso % (Auto) Neut # (Auto) Lymph # (Auto) [place] # (Auto) Eos # (Auto) Baso # (Auto) Immature Gran # (Auto) Absolute Nucleated RBC Immature Gran % Nucleated RBC % PT INR VBG pH VBG pCO2 VBG pO2 VBG O2 Sat ([place]) VBG Base Excess Sodium Potassium Chloride Carbon Dioxide Anion Gap BUN Creatinine Estim Creat Clear Calc eGFR BUN/Creatinine Ratio Glucose Calculated Osmolality Lactic Acid 3.5 H 2.6 H Calcium Corrected Calcium Phosphorus Magnesium Total Bilirubin AST ALT Alkaline Phosphatase Total Protein Albumin Globulin Albumin/Globulin Ratio Vitamin B12 25-OH Vitamin D Total Folate Free T4 1.15 Thyroxine (T4) 8.2 Free T3 pg/dL 0.8 L Ur Random Creatinine Ur Random Urea Nitrogn Hepatitis A IgM Ab Hep Bs Antigen Hep B Core IgM Ab Hepatitis C Antibody 01/25/25 01/25/25 01/25/25 21:29 23:32 23:51 WBC RBC Hgb Hct MCV MCH MCHC RDW Std Deviation Plt Count Neut % (Auto) Lymph % (Auto) [place] % (Auto) Eos % (Auto) Baso % (Auto) Neut # (Auto) Lymph # (Auto) [place] # (Auto) Eos # (Auto) Baso # (Auto) Immature Gran # (Auto) Absolute Nucleated RBC Immature Gran % Nucleated RBC % PT INR VBG pH VBG pCO2 VBG pO2 VBG O2 Sat ([place]) VBG Base Excess Sodium Potassium Chloride Carbon Dioxide Anion Gap BUN Creatinine Estim Creat Clear Calc eGFR BUN/Creatinine Ratio Glucose Calculated Osmolality Lactic Acid 2.1 H 1.7 Calcium Corrected Calcium Phosphorus Magnesium Total Bilirubin AST ALT Alkaline Phosphatase Total Protein Albumin Globulin Albumin/Globulin Ratio Vitamin B12 25-OH Vitamin D Total Folate Free T4 Thyroxine (T4) Free T3 pg/dL Ur Random Creatinine 157 H Ur Random Urea Nitrogn 208.0 L Hepatitis A IgM Ab Hep Bs Antigen Hep B Core IgM Ab Hepatitis C Antibody 01/26/25 05:17 WBC 11.7 H RBC 3.91 L Hgb 9.6 L Hct 30.5 L MCV 78 L MCH 24.6 L MCHC 31.5 RDW Std Deviation 43.4 Plt Count 253 D Neut % (Auto) 77 Lymph % (Auto) 11 [place] % (Auto) 10 Eos % (Auto) 1 Baso % (Auto) 1 Neut # (Auto) 8.9 H Lymph # (Auto) 1.3 [place] # (Auto) 1.2 H Eos # (Auto) 0.1 Baso # (Auto) 0.1 Immature Gran # (Auto) 0.09 H Absolute Nucleated RBC 0.00 Immature Gran % 1 H Nucleated RBC % 0 PT 13.5 H INR 1.3 VBG pH 7.43 VBG pCO2 37 VBG pO2 59 H VBG O2 Sat ([place]apphire) 92 L VBG Base Excess 0 Sodium 137 Potassium 4.2 Chloride 97 L Carbon Dioxide 23.8 Anion Gap 16 BUN 39 H Creatinine 3.4 H Estim Creat Clear Calc 17.0 L eGFR 14 L* BUN/Creatinine Ratio 11 L Glucose 149 H Calculated Osmolality 286 Lactic Acid Calcium 9.1 Corrected Calcium 9.1 Phosphorus 6.8 H Magnesium 2.2 Total Bilirubin 1.0 AST 25 ALT 16 Alkaline Phosphatase 139 H D Total Protein 6.9 Albumin 4.0 Globulin 2.9 Albumin/Globulin Ratio 1.4 Vitamin B12 25-OH Vitamin D Total 16.2 Folate Free T4 Thyroxine (T4) Free T3 pg/dL Ur Random Creatinine Ur Random Urea Nitrogn Hepatitis A IgM Ab Hep Bs Antigen Hep B Core IgM Ab Hepatitis C Antibody ABG Interpretation ABG results: 01/26/25 05:17 VBG pH 7.43 VBG pCO2 37 VBG pO2 59 H VBG Base Excess 0 Quality Measures Quality Measures VTE prophylaxis Advance care planning discussed with:: patient Assessment & Plan Assessment Current Active Medications: Generic Name Dose Route Start Last Admin Trade Name Freq PRN Reason Stop Dose Admin Acetaminophen 650 mg 01/20/25 16:47 01/24/25 11:52 Acetaminophen 325 Mg Tablet PO 02/19/25 16:46 650 mg Q6H PRN Administration PAIN SCALE 1-3 (mild Acetaminophen 650 mg 01/20/25 16:47 01/24/25 19:47 Acetaminophen 325 Mg Tablet PO 02/19/25 16:46 650 mg Q6H PRN Administration Fever >100.4 Albuterol/Ipratropium 3 ml 01/20/25 18:38 Albuterol/Ipratropium (Duoneb) Rt Lisset 3 Ml Nebu INH 02/19/25 18:37 Q6HRRT PRN Wheezing Dextrose 25 ml 01/20/25 18:39 Dextrose 50%-Water Inj 50 Ml Syringe IV 02/19/25 18:38 Q15MIN PRN BG 50-70 responsive npo pt Dextrose 50 ml 01/20/25 18:39 Dextrose 50%-Water Inj 50 Ml Syringe IV 02/19/25 18:38 Q15MIN PRN BG <50 OR BG <70 & pt unresponsive Docusate Sodium 200 mg 01/24/25 21:00 01/26/25 08:15 Docusate Sod 100 Mg Capsule PO 02/23/25 20:59 200 mg QDAY REYNA Administration Protocol Escitalopram Oxalate 20 mg 01/24/25 16:30 01/26/25 08:15 Escitalopram Oxalate 10 Mg Tablet PO 02/23/25 16:29 20 mg QDAY REYNA Administration Ferrous Sulfate 325 mg 01/21/25 11:30 01/25/25 08:23 Ferrous Sulf 325 Mg Tablet PO 02/20/25 11:29 325 mg QOD REYNA Administration Furosemide 20 mg 01/22/25 18:00 01/24/25 05:38 Furosemide Inj 10 Mg/Ml Vial 2 Ml IVP 02/20/25 17:59 20 mg BIDD REYNA Administration Glucagon 1 mg 01/20/25 18:39 Glucagon Inj 1 Mg Vial IM Q15MIN PRN BG <70, and no IV access Glycerin 1 each 01/24/25 20:53 01/25/25 01:20 Glycerin, Adult 1 Ea Supp IN 02/23/25 20:52 1 each QDAY PRN Administration CONSTIPATION Heparin Sodium (Porcine) 5,000 unit 01/20/25 21:00 01/26/25 08:20 Heparin Sod Inj 5000 Unit/Ml Vial SC 02/03/25 20:59 5,000 unit BID REYNA Administration Hydromorphone HCl 0.5 mg 01/26/25 07:28 Hydromorphone Inj 2 Mg/Ml Vial IVP 01/29/25 00:09 Q6H PRN BREAKTHROUGH PAIN (SEVERE) Albumin Human 25 gm in 100 mls @ 100 mls/hr 01/25/25 15:11 01/26/25 08:17 Albumin-25 Ivpb IV 01/28/25 15:10 100 mls/hr QDAY REYNA Administration Ceftriaxone Sodium/Dextrose 1 gm in 50 mls @ 100 mls/hr 01/25/25 15:30 01/26/25 08:20 Rocephin/D5w 1gm Iv Premix IV 02/01/25 15:29 100 mls/hr QDAY REYNA Administration Insulin Human Lispro 0 unit 01/20/25 21:00 01/26/25 08:21 Insulin Lispro (Admelog) 1 Unit/0.01 Ml Unit SC 02/19/25 20:59 1 unit ACHS REYNA Administration Protocol Lactulose 20 gm 01/25/25 17:00 01/26/25 05:56 Lactulose Syrup 20 Gm/30 Ml Udc PO 02/24/25 16:59 20 gm QID REYNA Administration Protocol Levothyroxine Sodium 112 mcg 01/21/25 06:00 01/26/25 05:57 Levothyroxine Sodium 112 Mcg Tablet PO 02/20/25 05:59 112 mcg ACBR REYNA Administration Lidocaine 1 patch 01/21/25 10:22 Lidocaine 5% 1 Patch TOP 02/20/25 10:21 UD PRN Back pain Protocol Liothyronine Sodium 10 mcg 01/25/25 14:15 01/26/25 08:13 Liothyronine Sod 5 Mcg Tablet PO 02/24/25 14:14 10 mcg QDAY REYNA Administration Loratadine 10 mg 01/21/25 09:00 01/26/25 08:20 Loratadine 10 Mg Tablet PO 02/20/25 08:59 10 mg QDAY REYNA Administration Metoprolol Succinate 50 mg 01/21/25 09:00 Metoprolol Succinate Xl 25 Mg Tabcr PO 02/20/25 08:59 QDAY REYNA Midodrine 15 mg 01/24/25 22:00 01/26/25 05:57 Midodrine 5 Mg Tablet PO 02/23/25 21:59 15 mg TID REYNA Administration Ondansetron HCl 4 mg 01/20/25 16:47 01/26/25 06:14 Ondansetron Inj 2 Mg/Ml Inj 2 Ml IVP 02/19/25 16:46 4 mg Q6H PRN Administration NAUSEA OR VOMITING Protocol Pantoprazole Sodium 40 mg 01/21/25 09:00 01/26/25 08:19 Pantoprazole Inj 40 Mg Vial IVP 02/20/25 08:59 40 mg BID REYNA Administration Pregabalin 150 mg 01/20/25 21:00 01/26/25 08:15 Pregabalin 75 Mg Capsule PO 02/19/25 20:59 150 mg BID REYNA Administration Primidone 250 mg 01/21/25 10:30 01/26/25 08:16 Primidone 50 Mg Tablet PO 01/26/25 10:29 250 mg QDAY REYNA Administration Primidone 50 mg 01/21/25 21:00 01/25/25 20:48 Primidone 50 Mg Tablet PO 01/26/25 20:59 50 mg HS REYNA Administration Rifaximin 550 mg 01/25/25 21:00 01/26/25 08:14 Rifaximin 550 Mg Tablet PO 02/01/25 20:59 550 mg BID REYNA Administration Simethicone 80 mg 01/26/25 08:38 Simethicone 80 Mg Chew PO 02/25/25 08:37 QID PRN GAS Spironolactone 25 mg 01/21/25 09:00 01/25/25 08:23 Spironolactone 25 Mg Tablet PO 02/20/25 08:59 25 mg BID REYNA Administration Zolpidem Tartrate 5 mg 01/25/25 21:00 01/26/25 01:56 Zolpidem 5 Mg Tablet PO 02/23/25 20:59 Not Given HS REYNA Plan Ms. Mario is a 64 year-old female with PMHx of alcoholic liver cirrhosis, COPD on home O2, hypothyroidism, asthma, HTN, T2DM and anxiety who presented to the ED with worsening ascites and abdominal discomfort. Admitted under observation for therapeutic/diagnostic paracentesis. Nephrology consulted for management of DONNA. # Acute Kidney Injury Patient noted to initially have DONNA with Cr 2.1, now at 3.4 (baseline around 1.0). Suspect due abdominal compression or hepatorenal syndrome. Abd US shows minimal ascitic fluid 01/25. Renal US did not show hydronephrosis. Currently making urine. At this point, waiting to see if decompression of abdomen will happen. -Hold dialysis today. -will hold fluids and diuretics -trend CMP -renally dose medications #Acute encephalopathy?new onset #New onset fever, hypotension, low O2 saturations, tachycardia #?Presyncope #?Pulmonary embolism #?Seizures #Hyperkalemia, improved Significant ascites Alcoholic liver cirrhosis Microcytic anemia (stable) Grade 1 esophageal varices Mild thrombocytopenia (resolved) HTN Hypothyroidism Asymptomatic sinus bradycardia COPD, asthma Chronic respiratory failure, on home 2 L O2 T2DM Elevated lipase Electrolyte abnormalities Anxiety manage per primary team Thank you for allowing us be apart of the care team for Ms. Mario Patient plan of care was discussed with the attending physician, Dr. Mike Street MD PGY-1 Internal Medicine Attending Provider Attestation/Addendum Patient seen and examined with resident physician Dr. Street. Note reviewed, agree with findings and recommendations with changes made. Patient with longstanding history of liver cirrhosis manifested with ascites, hepatic encephalopathy. Patient's abdomen was significantly distended. Suspected ascites although ultrasound showed minimal ascitic fluid. KUB showed significant bowel distention. Spoke to primary team-insert Melendez, give GoLytely to decompress the abdomen. DONNA-multifactorial(prerenal state from abdominal compression syndrome due to significant abdominal distention versus hepatorenal syndrome type I) Patient making acceptable urine. If no improvement in azotemia-might need renal replacement therapy. Will reeval tomorrow. Today her mental status seems to be better. Although she still has asterixis.
[2025-01-26] MEDS: HYDROmorphone INJ 2 MG/ML VIAL 0.25 MG IVP ×2 (10:36→20:24)
--- NOTE | 2025-01-26 11:35 | XR_ITS ---
Examination: CT abdomen and pelvis without contrast. Coronal 3-D reconstructions. Sagittal 2-D reconstructions. Date and time of exam:January 26, 2025 1715 hours Comparison January 20, 2025 INDICATIONS: Diagnosis cirrhosis, generalized abdominal pain and distention as well as acute renal insufficiency this week CTDI: vol (mGy): 10.5 DLP: (mGycm): 658 Technique: Axial images of the abdomen have been obtained, 3 mm slice thickness Intravenous contrast material has not been administered. Low dose protocols were performed. One or more of the following dose reduction techniques were used; automated exposure control, adjustment of the mA and/or KV according to patient size, use of iterative reconstruction technique. Findings: Moderate enlargement cardiac contour with prominent vascular congestion and small pleural effusions Cirrhosis, no focal liver lesions, moderate ascites Significant splenomegaly Esophageal and perigastric varices Orogastric tube tip in the stomach Significant ascites Fluid and stool distended right colon colon Multiple air droplets in the wall of the colon Multiple fluid distended small bowel loops Atrophic kidneys Atrophic uterus Anasarca IMPRESSION: Cirrhosis with moderate ascites Significant splenomegaly Esophageal and perigastric varices Suspicious for ischemic right colon Small bowel obstruction pattern Recommend surgical consultation
--- NOTE | 2025-01-26 11:37 | PD.SURCONS ---
HPI Consult details Consult date: 01/26/25 Reason for consultation narrative: Abdominal distention History of present illness: 64-year-old female with history of hypertension, diabetes, hypothyroid, COPD on home oxygen, alcoholic liver cirrhosis was admitted about a week ago with abdominal distention. Upon admission she underwent paracentesis with drainage of 8.4 L of fluid. Over the past few days her abdominal distention has been getting progressively worse and she has not had any bowel movements. X-ray today revealed large amount of stool throughout the colon and dilated loops of small bowel. Meds Home Medications and Allergies Home Medications ?Medication ?Instructions ?Recorded ?Confirmed ?Type pregabalin 150 mg capsule (Lyrica) 150 mg PO BID #0 caps 04/13/16 01/20/25 History albuterol sulfate 90 mcg/actuation 2 puff inhalation Q4H PRN 04/14/19 01/20/25 History aerosol inhaler (Ventolin HFA) Shortness Of Breath latanoprost 0.005 % eye drops 1 drp ophthalmic (eye) QPM 04/14/19 01/20/25 History primidone 250 mg tablet 250 mg PO QDAY 04/14/19 01/20/25 History tramadol 50 mg tablet 50 mg PO BID 04/14/19 01/20/25 History clonidine HCl 0.1 mg tablet 1 tab PO BID 01/18/22 01/20/25 History Held on 01/20/25. Instructions: Doctor's Order metformin 1,000 mg tablet 1,000 mg PO BID 01/18/22 01/20/25 History Held on 01/20/25. Instructions: awaiting insurance autho for patient to continue to take med metoprolol succinate 50 mg 1.5 tab PO QDAY 01/18/22 01/20/25 History tablet,extended release 24 hr Held on 01/23/25. Instructions: resume with PCP escitalopram oxalate 20 mg tablet 20 mg PO QDAY 12/21/22 01/20/25 History (Lexapro) levothyroxine 112 mcg capsule 112 mcg PO QDAY 05/09/23 01/20/25 History liothyronine 5 mcg tablet 20 mcg PO QDAY 05/09/23 01/20/25 History zolpidem 5 mg tablet 5 mg PO QHSPRN 05/09/23 01/20/25 History empagliflozin 10 mg tablet 1 mg PO DAILY 08/24/23 01/20/25 History (Jardiance) fluticasone propionate 110 1 inh inhalation BID 08/24/23 01/20/25 History mcg/actuation HFA aerosol inhaler metoclopramide HCl 10 mg tablet 1 mg PO TID 08/24/23 01/20/25 History primidone 50 mg tablet 1 mg PO DAILY 08/24/23 01/20/25 History semaglutide 1 mg/dose (4 mg/3 mL) 1 mg subcut QWEEK 08/24/23 01/20/25 History subcutaneous pen injector (Ozempic) Held on 01/20/25. Instructions: Doctor's Order tiotropium 2.5 mcg-olodaterol 2.5 2 puff inhalation DAILY 08/24/23 01/20/25 History mcg/actuation mist for inhalation (Stiolto Respimat) aspirin 81 mg capsule 81 mg PO QDAY 01/20/25 01/20/25 History beclomethasone dipropionate 40 2 inh inhalation BID 01/20/25 01/20/25 History mcg/actuation HFA breath activated aerosol (Qvar RediHaler) insulin lispro 100 unit/mL 1 sliding scale dose subcut PRN 01/20/25 01/20/25 History subcutaneous pen lubiprostone 24 mcg capsule 24 mcg PO PRN PRN constipation 01/20/25 01/20/25 History omeprazole 20 mg capsule,delayed 20 mg PO BID 01/20/25 01/20/25 History release spironolactone 50 mg tablet 50 mg PO BID 01/20/25 01/20/25 History Allergies Allergy/AdvReac Type Severity Reaction Status Date / Time No Known Allergies Allergy Verified 01/20/25 12:17 Exam Vital Signs Temp Pulse Resp BP Pulse Ox O2 Del Method O2 Flow Rate 97.5 F 84 17 112/66 96 Nasal Cannula 3 01/26/25 08:00 01/26/25 08:02 01/26/25 08:02 01/26/25 08:00 01/26/25 08:02 01/26/25 08:00 01/26/25 08:02 Constitutional Constitutional: no acute distress Routine Abdominal Exam Comments: Abdomen is soft and distended Assessment & Plan Additional Assessment Additional comments: Alcoholic liver cirrhosis with ascites and abdominal distention Plan I agree with Dr. Nagy that patient will require large-volume paracentesis and infusion of albumin., Lactic acid is normal, she is unlikely to have ischemic bowel. Will need tapwater enema and lactulose. There is no indication for surgical intervention at this time
[2025-01-26 12:14] LABS: Cocci Serology, IgM Negative (Negative)
--- NOTE | 2025-01-26 13:04 | XR_ITS ---
Examination: AP chest single view TECHNIQUE: AP portable semiupright chest single view Date and time: January 26, 2025 1233 hours INDICATIONS: Post orogastric tube placement LUNGS: Orogastric tube in the stomach satisfactory position Bibasilar pneumonia versus atelectasis No significant cardiac enlargement IMPRESSION: Orogastric tube satisfactory position
[2025-01-26] MEDS: GLYCERIN, ADULT 1 EA SUPP 1 EACH PR ×2 (13:12→20:08)
--- NOTE | 2025-01-26 13:35 | ESPR_ITS ---
<Statement entered by Erin Tomas MD - 01/28/25 14:34> The patient was personally examined by me and evaluated the patient with the resident physician has multiple problems including cirrhosis of the liver ascites no evidence of heart failure most of her problems are due to liver disease portal hypertension. No evidence of pulmonary hypertension. Patient's renal function continued to worsenI evaluated the patient with the results physician Dr. Kennedy PGY2 and agree with the treatment plan recommendations documented. Documentation for date of: 01/26/25 Subjective Subjective Interval history: Pt is seen at bedside, daughter and grandson are also at bedside. Due to suspicion of SBO on imaging. Pt is placed on NG tube on LIS, currently have 75cc output. pt appears to be very lethargic and feels uncomfortable due to abdominal distention. vitals are stable, labs are sifnificant for Cr 3.4, BUN 39, GFR 14, pt's urine output is 825 cc, has remained afebrile, denies chest pain or palpitations. BP is 118/77, HR is 99 Paracenthesis is not done today due to pt's symptoms maybe related to other GI causes like suspicion for ischemic bowel, SBO. although pt's abdomen is distended ascitic fluid is not significant. Recommend paracenthesis , IV fluids and Albumin Exam Vital Signs Temp Pulse Resp BP Pulse Ox O2 Del Method O2 Flow Rate 97.6 F 99 18 118/57 L 95 Nasal Cannula 5 01/26/25 12:00 01/26/25 12:00 01/26/25 12:00 01/26/25 12:00 01/26/25 12:00 01/26/25 12:00 01/26/25 12:00 Narrative Exam GENERAL: A&Ox2, chronically ill appearing, Awake, Not in acute distress NEURO: no focal neurological deficits HEENT: Atraumatic, Normocephalic. mucous membranes moist. Eyes open, symmetrical, & clear HEART: Normal Heart Sounds LUNGS: Clear to auscultation with no wheezing or crackles. ABDOMEN: significantly distended abdomen, tender to palpation EXTREMITIES: no edema noted in LE, no tenderness, able to move all 4 extremities, pedal pulses palpated Objective Labs 01/26/25 05:17 01/26/25 05:17 Labs: Laboratory Results - last 24 hr 0701/25/25 01/25/25 05:56 14:35 17:30 WBC RBC Hgb Hct MCV MCH MCHC RDW Std Deviation Plt Count Neut % (Auto) Lymph % (Auto) [place] % (Auto) Eos % (Auto) Baso % (Auto) Neut # (Auto) Lymph # (Auto) [place] # (Auto) Eos # (Auto) Baso # (Auto) Immature Gran # (Auto) Absolute Nucleated RBC Immature Gran % Nucleated RBC % PT INR VBG pH VBG pCO2 VBG pO2 VBG O2 Sat ([place]) VBG Base Excess Sodium Potassium Chloride Carbon Dioxide Anion Gap BUN Creatinine Estim Creat Clear Calc eGFR BUN/Creatinine Ratio Glucose Calculated Osmolality Lactic Acid 3.5 H 2.6 H Calcium Corrected Calcium Phosphorus Magnesium Total Bilirubin AST ALT Alkaline Phosphatase Total Protein Albumin Globulin Albumin/Globulin Ratio 25-OH Vitamin D Total Ur Random Creatinine Ur Random Urea Nitrogn Coccidioides IgM Ab Negative 01/25/25 01/25/25 01/25/25 21:29 23:32 23:51 WBC RBC Hgb Hct MCV MCH MCHC RDW Std Deviation Plt Count Neut % (Auto) Lymph % (Auto) [place] % (Auto) Eos % (Auto) Baso % (Auto) Neut # (Auto) Lymph # (Auto) [place] # (Auto) Eos # (Auto) Baso # (Auto) Immature Gran # (Auto) Absolute Nucleated RBC Immature Gran % Nucleated RBC % PT INR VBG pH VBG pCO2 VBG pO2 VBG O2 Sat ([place]) VBG Base Excess Sodium Potassium Chloride Carbon Dioxide Anion Gap BUN Creatinine Estim Creat Clear Calc eGFR BUN/Creatinine Ratio Glucose Calculated Osmolality Lactic Acid 2.1 H 1.7 Calcium Corrected Calcium Phosphorus Magnesium Total Bilirubin AST ALT Alkaline Phosphatase Total Protein Albumin Globulin Albumin/Globulin Ratio 25-OH Vitamin D Total Ur Random Creatinine 157 H Ur Random Urea Nitrogn 208.0 L Coccidioides IgM Ab 01/26/25 05:17 WBC 11.7 H RBC 3.91 L Hgb 9.6 L Hct 30.5 L MCV 78 L MCH 24.6 L MCHC 31.5 RDW Std Deviation 43.4 Plt Count 253 D Neut % (Auto) 77 Lymph % (Auto) 11 [place] % (Auto) 10 Eos % (Auto) 1 Baso % (Auto) 1 Neut # (Auto) 8.9 H Lymph # (Auto) 1.3 [place] # (Auto) 1.2 H Eos # (Auto) 0.1 Baso # (Auto) 0.1 Immature Gran # (Auto) 0.09 H Absolute Nucleated RBC 0.00 Immature Gran % 1 H Nucleated RBC % 0 PT 13.5 H INR 1.3 VBG pH 7.43 VBG pCO2 37 VBG pO2 59 H VBG O2 Sat ([place]) 92 L VBG Base Excess 0 Sodium 137 Potassium 4.2 Chloride 97 L Carbon Dioxide 23.8 Anion Gap 16 BUN 39 H Creatinine 3.4 H Estim Creat Clear Calc 17.0 L eGFR 14 L* BUN/Creatinine Ratio 11 L Glucose 149 H Calculated Osmolality 286 Lactic Acid Calcium 9.1 Corrected Calcium 9.1 Phosphorus 6.8 H Magnesium 2.2 Total Bilirubin 1.0 AST 25 ALT 16 Alkaline Phosphatase 139 H D Total Protein 6.9 Albumin 4.0 Globulin 2.9 Albumin/Globulin Ratio 1.4 25-OH Vitamin D Total 16.2 Ur Random Creatinine Ur Random Urea Nitrogn Coccidioides IgM Ab ABG Interpretation ABG results: 01/26/25 05:17 VBG pH 7.43 VBG pCO2 37 VBG pO2 59 H VBG Base Excess 0 Quality Measures Quality Measures VTE prophylaxis Advance care planning discussed with:: patient Assessment & Plan Assessment Current Active Medications: Generic Name Dose Route Start Last Admin Trade Name Freq PRN Reason Stop Dose Admin Acetaminophen 650 mg 01/20/25 16:47 01/24/25 11:52 Acetaminophen 325 Mg Tablet PO 02/19/25 16:46 650 mg Q6H PRN Administration PAIN SCALE 1-3 (mild Acetaminophen 650 mg 01/20/25 16:47 01/24/25 19:47 Acetaminophen 325 Mg Tablet PO 02/19/25 16:46 650 mg Q6H PRN Administration Fever >100.4 Albuterol/Ipratropium 3 ml 01/20/25 18:38 Albuterol/Ipratropium (Duoneb) Rt Lisset 3 Ml Nebu INH 02/19/25 18:37 Q6HRRT PRN Wheezing Dextrose 25 ml 01/20/25 18:39 Dextrose 50%-Water Inj 50 Ml Syringe IV 02/19/25 18:38 Q15MIN PRN BG 50-70 responsive npo pt Dextrose 50 ml 01/20/25 18:39 Dextrose 50%-Water Inj 50 Ml Syringe IV 02/19/25 18:38 Q15MIN PRN BG <50 OR BG <70 & pt unresponsive Docusate Sodium 200 mg 01/24/25 21:00 01/26/25 08:15 Docusate Sod 100 Mg Capsule PO 02/23/25 20:59 200 mg QDAY REYNA Administration Protocol Escitalopram Oxalate 20 mg 01/24/25 16:30 01/26/25 08:15 Escitalopram Oxalate 10 Mg Tablet PO 02/23/25 16:29 20 mg QDAY REYNA Administration Ferrous Sulfate 325 mg 01/21/25 11:30 01/25/25 08:23 Ferrous Sulf 325 Mg Tablet PO 02/20/25 11:29 325 mg QOD REYNA Administration Furosemide 20 mg 01/22/25 18:00 01/24/25 05:38 Furosemide Inj 10 Mg/Ml Vial 2 Ml IVP 02/20/25 17:59 20 mg BIDD REYNA Administration Glucagon 1 mg 01/20/25 18:39 Glucagon Inj 1 Mg Vial IM Q15MIN PRN BG <70, and no IV access Glycerin 1 each 01/24/25 20:53 01/25/25 01:20 Glycerin, Adult 1 Ea Supp DE 02/23/25 20:52 1 each QDAY PRN Administration CONSTIPATION Heparin Sodium (Porcine) 5,000 unit 01/20/25 21:00 01/26/25 08:20 Heparin Sod Inj 5000 Unit/Ml Vial SC 02/03/25 20:59 5,000 unit BID REYNA Administration Hydromorphone HCl 0.25 mg 01/26/25 09:13 01/26/25 10:36 Hydromorphone Inj 2 Mg/Ml Vial IVP 01/29/25 00:09 0.25 mg Q6H PRN Administration BREAKTHROUGH PAIN (SEVERE) Albumin Human 25 gm in 100 mls @ 100 mls/hr 01/25/25 15:11 01/26/25 08:17 Albuminar-25 Ivpb IV 01/28/25 15:10 100 mls/hr QDAY REYNA Administration Ceftriaxone Sodium/Dextrose 1 gm in 50 mls @ 100 mls/hr 01/25/25 15:30 01/26/25 08:20 Rocephin/D5w 1gm Iv Premix IV 02/01/25 15:29 100 mls/hr QDAY REYNA Administration Insulin Human Lispro 0 unit 01/20/25 21:00 01/26/25 11:59 Insulin Lispro (Admelog) 1 Unit/0.01 Ml Unit SC 02/19/25 20:59 Not Given ACHS REYNA Protocol Lactulose 20 gm 01/25/25 17:00 01/26/25 05:56 Lactulose Syrup 20 Gm/30 Ml Udc PO 02/24/25 16:59 20 gm QID REYNA Administration Protocol Levothyroxine Sodium 112 mcg 01/21/25 06:00 01/26/25 05:57 Levothyroxine Sodium 112 Mcg Tablet PO 02/20/25 05:59 112 mcg ACBR REYNA Administration Lidocaine 1 patch 01/21/25 10:22 Lidocaine 5% 1 Patch TOP 02/20/25 10:21 UD PRN Back pain Protocol Liothyronine Sodium 10 mcg 01/25/25 14:15 01/26/25 08:13 Liothyronine Sod 5 Mcg Tablet PO 02/24/25 14:14 10 mcg QDAY REYNA Administration Loratadine 10 mg 01/21/25 09:00 01/26/25 08:20 Loratadine 10 Mg Tablet PO 02/20/25 08:59 10 mg QDAY REYNA Administration Metoprolol Succinate 50 mg 01/21/25 09:00 Metoprolol Succinate Xl 25 Mg Tabcr PO 02/20/25 08:59 QDAY REYNA Midodrine 15 mg 01/24/25 22:00 01/26/25 05:57 Midodrine 5 Mg Tablet PO 02/23/25 21:59 15 mg TID REYNA Administration Ondansetron HCl 4 mg 01/20/25 16:47 01/26/25 06:14 Ondansetron Inj 2 Mg/Ml Inj 2 Ml IVP 02/19/25 16:46 4 mg Q6H PRN Administration NAUSEA OR VOMITING Protocol Pantoprazole Sodium 40 mg 01/21/25 09:00 01/26/25 08:19 Pantoprazole Inj 40 Mg Vial IVP 02/20/25 08:59 40 mg BID REYNA Administration Pregabalin 150 mg 01/20/25 21:00 01/26/25 08:15 Pregabalin 75 Mg Capsule PO 02/19/25 20:59 150 mg BID REYNA Administration Primidone 50 mg 01/21/25 21:00 01/25/25 20:48 Primidone 50 Mg Tablet PO 01/26/25 20:59 50 mg HS REYNA Administration Rifaximin 550 mg 01/25/25 21:00 01/26/25 08:14 Rifaximin 550 Mg Tablet PO 02/01/25 20:59 550 mg BID REYNA Administration Simethicone 80 mg 01/26/25 08:38 Simethicone 80 Mg Chew PO 02/25/25 08:37 QID PRN GAS Spironolactone 25 mg 01/21/25 09:00 01/25/25 08:23 Spironolactone 25 Mg Tablet PO 02/20/25 08:59 25 mg BID REYNA Administration Zolpidem Tartrate 5 mg 01/25/25 21:00 01/26/25 01:56 Zolpidem 5 Mg Tablet PO 02/23/25 20:59 Not Given HS REYNA Plan Ms. Mario is a 64-year-old female with past medical history significant for decompensated liver cirrhosis (diagnosed in October 2024), COPD on home oxygen, asthma, hypothyroidism, hypertension, type 2 diabetes and anxiety presented to the ED on 01/20/25 complaining of worsening abdominal pain and distention. Cardiology is consulted due to tachycardia and hypotension. #Syncopal episode #Pulmonary arterial hypertension -ruled out #Portal hypertension #Hepatorenal Syndrome #Sinus tachycardia secondary to fevers- resolved #Hypotension -Patient has been in the hospital since 01/20 however since midnight overnight patient has been having sinus tachycardia and fever. Telemetry is reviewed patient is in sinus rhythm. Since patient is a high risk for peritonitis in the setting of end-stage liver disease patient's tachycardia is likely from the fevers indicating possible source of infection. -Low cardiac suspicion for her symptoms right now, patient's hypotension is due to current illness as patient had 8.4 L of fluid removed via paracentesis. EKG: Sinus tachycardia with rate of 120 and QTc 449 Plan: -Continue treating patient's decompensated liver cirrhosis -Continue broad-spectrum IV antibiotics for possible source of infection -Continue Lasix 20 mg twice daily as tolerated by pt's blood pressure -Hold spironolactone 25 mg BID -Recommend increasing midodrine to 15 mg 3 times daily for hypotension -Continue to hold metoprolol XL to avoid masking tachycardia in the setting of possible infection -Pt may have 300-400 cc of IV fluids if needed to maintain MAP > 60 -Recommend albumin with paracenthesis -Continue low-sodium 2 g diet -Strict ins and outs -Echo showed good cardiac activity with EF >60% and no evidence of PAH #End-stage liver disease #Altered mental status- improved #[id number] type 2 diabetes #Primary hypertension #Hypothyroidism #COPD #Asthma #Anxiety Management as per primary team Thank you for the consult and allowing us to participate in the care of the patient. Cardiology will continue to follow. Assessment and plan discussed with my attending Management Instructor Dr. Thom Kennedy (PGY-2)- Internal medicine resident
[2025-01-26] MEDS: LACTULOSE SYRUP 20 GM/30 ML UDC 30 GM PO (17:47)
--- NOTE | 2025-01-26 19:55 | PD.IMPROG ---
Documentation for date of: 01/26/25 Subjective Subjective Interval history: Patient evaluated Repeat CT scan of the abdomen pelvis shows moderate ascites suspicious right colonic ischemia Surgical consult on board Nephrology on board Cardiology on board Exam Vital Signs Temp Pulse Resp BP Pulse Ox O2 Del Method O2 Flow Rate 97.6 F 100 18 123/65 97 Nasal Cannula 5 01/26/25 16:00 01/26/25 18:01 01/26/25 16:00 01/26/25 18:01 01/26/25 16:00 01/26/25 12:00 01/26/25 12:00 Objective Labs 01/26/25 05:17 01/26/25 05:17 Labs: Laboratory Results - last 24 hr 01/25/25 01/25/25 01/25/25 05:56 21:29 23:32 WBC RBC Hgb Hct MCV MCH MCHC RDW Std Deviation Plt Count Neut % (Auto) Lymph % (Auto) [place] % (Auto) Eos % (Auto) Baso % (Auto) Neut # (Auto) Lymph # (Auto) [place] # (Auto) Eos # (Auto) Baso # (Auto) Immature Gran # (Auto) Absolute Nucleated RBC Immature Gran % Nucleated RBC % PT INR VBG pH VBG pCO2 VBG pO2 VBG O2 Sat ([place]) VBG Base Excess Sodium Potassium Chloride Carbon Dioxide Anion Gap BUN Creatinine Estim Creat Clear Calc eGFR BUN/Creatinine Ratio Glucose Calculated Osmolality Lactic Acid 2.1 H 1.7 Calcium Corrected Calcium Phosphorus Magnesium Total Bilirubin AST ALT Alkaline Phosphatase Total Protein Albumin Globulin Albumin/Globulin Ratio 25-OH Vitamin D Total Ur Random Creatinine Ur Random Urea Nitrogn Coccidioides IgM Ab Negative 01/25/25 01/26/25 23:51 05:17 WBC 11.7 H RBC 3.91 L Hgb 9.6 L Hct 30.5 L MCV 78 L MCH 24.6 L MCHC 31.5 RDW Std Deviation 43.4 Plt Count 253 D Neut % (Auto) 77 Lymph % (Auto) 11 [place] % (Auto) 10 Eos % (Auto) 1 Baso % (Auto) 1 Neut # (Auto) 8.9 H Lymph # (Auto) 1.3 [place] # (Auto) 1.2 H Eos # (Auto) 0.1 Baso # (Auto) 0.1 Immature Gran # (Auto) 0.09 H Absolute Nucleated RBC 0.00 Immature Gran % 1 H Nucleated RBC % 0 PT 13.5 H INR 1.3 VBG pH 7.43 VBG pCO2 37 VBG pO2 59 H VBG O2 Sat ([place]) 92 L VBG Base Excess 0 Sodium 137 Potassium 4.2 Chloride 97 L Carbon Dioxide 23.8 Anion Gap 16 BUN 39 H Creatinine 3.4 H Estim Creat Clear Calc 17.0 L eGFR 14 L* BUN/Creatinine Ratio 11 L Glucose 149 H Calculated Osmolality 286 Lactic Acid Calcium 9.1 Corrected Calcium 9.1 Phosphorus 6.8 H Magnesium 2.2 Total Bilirubin 1.0 AST 25 ALT 16 Alkaline Phosphatase 139 H D Total Protein 6.9 Albumin 4.0 Globulin 2.9 Albumin/Globulin Ratio 1.4 25-OH Vitamin D Total 16.2 Ur Random Creatinine 157 H Ur Random Urea Nitrogn 208.0 L Coccidioides IgM Ab Impressions Impression: Decompensated cirrhotic liver disease due to alcohol Advanced portal hypertension with ascites Does not have a surgical indication for the CT scan abdominal finding Continue current management Stool impaction as well as large-volume paracentesis would be helpful in this clinical picture ABG Interpretation ABG results: 01/26/25 05:17 VBG pH 7.43 VBG pCO2 37 VBG pO2 59 H VBG Base Excess 0 Assessment & Plan A&P Narrative # Decompensated alcoholic liver disease with advanced portal hypertension esophageal varices and intractable ascites Plan Agree with the IV Lasix Agree with IV albumin Add spironolactone 25 mg p.o. twice daily Scheduled for therapeutic paracentesis Monitor renal function closely Consent obtained for fiberoptic esophagogastroduodenoscopy with possible biopsy possible therapeutic intervention for prophylactic band ligation of the esophageal varices Agree with IV ceftriaxone for the possibility of subacute bacterial peritonitis Will follow the patient Other medical problems include COPD on home oxygen 2 L nasal cannula Essential hypertension Hypothyroidism Hyperlipidemia Thank you very much for the opportunity to participate in care of this patient Time Spent With Patient Time: Total time spent is greater than 50% in coordination of care (as documented) at patient's floor/unit and/or counseling patient:
[2025-01-27] VITALS (12 sets, daily range): BP systolic 109–128; BP diastolic 53–65; PULSE 68–116; RESP 12–20; TEMP 36.1–36.4; O2SAT 94–98
[2025-01-27] MEDS: HYDROmorphone INJ 2 MG/ML VIAL 0.25 MG IVP (05:25)
[2025-01-27] MEDS: MIDODRINE 5 MG TABLET 15 MG PO ×3 (05:26→21:57)
[2025-01-27] MEDS: LEVOTHYROXINE SODIUM 112 MCG TABLET PO (05:26)
[2025-01-27 06:29] LABS: Basophils # (Auto) 0.1 Thou/mm3 (0.0-0.2); Basophils % (Auto) 1 % (0-2.5); Eosinophils # (Auto) 0.1 Thou/mm3 (0.0-0.5); Eosinophils % (Auto) 1 % (0-10); Hematocrit 27.9 % (36.0-46.0); Hemoglobin 9.1 g/dL (12.0-16.0); Immature Granulocytes Auto 0.02 Thou/mm3 (0.00-0.00); Lymphocytes # (Auto) 0.6 Thou/mm3 (1.0-4.8); Lymphocytes % (Auto) 8 % (10-50); Mean Corpuscular HGB Conc 32.6 g/dl (31.0-37.0); Mean Corpuscular Hemoglobin 24.5 pg (25.0-35.0); Mean Corpuscular Volume 75 fL (80-100); Monocytes # (Auto) 1.0 Thou/mm3 (0.0-0.8); Monocytes % (Auto) 13 % (0-12); Neutrophils # (Auto) 5.9 Thou/mm3 (1.8-7.7); Neutrophils % (Auto) 77 % (37-80); Nucleated Red Blood Cell # 0.00 Thou/mm3 (0.00-0.00); Nucleated Red Blood Cell % 0 /100 WBC (0); Platelet Count 176 Thou/mm3 (140-440); RDW Standard Deviation 42.5 fL (36.4-46.3); Red Blood Count 3.71 Miln/mm3 (4.00-5.20); White Blood Count 7.7 Thou/mm3 (3.6-11.0)
[2025-01-27 06:53] LABS: Alanine Aminotransferase 13 U/L (10-49); Albumin, Serum 3.9 gm/dL (3.4-4.8); Albumin/Globulin Ratio 1.4 (1.2-2.2); Alkaline Phosphatase 126 U/L (46-116); Anion Gap 13 (7-16); Aspartate Amino Transferase 25 U/L (0-34); BUN/Creatinine Ratio 18 Ratio (12-20); Bilirubin,Total 0.9 mg/dL (0.3-1.2); Blood Urea Nitrogen 48 mg/dL (9-23); Calcium 9.0 mg/dL (8.3-10.6); Calcium (Corrected) 9.1 mg/dL (8.5-10.1); Carbon Dioxide 25.7 mMol/L (20.0-31.0); Chloride 98 mMol/L (98-107); Creatinine (Component) 2.7 mg/dL (0.6-1.3); Estimated Creatinine Clearance 21.4 mL/min (>60); Globulin 2.7 gm/dL (2.3-3.5); Glucose 160 mg/dL (74-106); Magnesium 2.1 mg/dL (1.6-2.6); Osmolality,Calculated 289 (275-295); Phosphorous 5.6 mg/dL (2.4-5.1); Potassium 3.8 mMol/L (3.4-5.1); Sodium 137 mMol/L (136-145); Total Protein 6.6 gm/dL (5.7-8.2); eGFR 19 See Note
--- NOTE | 2025-01-27 07:59 | ESPR_ITS ---
<Statement entered by Keith Daly MD - 01/27/25 21:34> In summary: 64-year-old female admitted for decompensated liver cirrhosis. Initially, she had paracentesis with 8.4 L removed. ALBUMIN was started preemptively however her blood pressure dropped after paracentesis. Currently blood pressures stable with MIDODRINE TID and daily ALBUMIN infusions. Around day 2 of admission, she been showing symptoms of hepatic encephalopathy including altered mental status, asterixis, and bilateral myoclonus. Initially we suspected either polypharmacy or withdrawal from ANXIOLYTIC medications that she takes at home. Neurology was consulted and currently managing her anxiolytics. EEG was done showing diffuse slowing, suggestive of hepatic encephalopathy, no signs of seizure activities. Additionally, she was on a large dose of thyroid hormone including LEVOTHYROXINE and liothyronine 20 mEq daily, which is relatively high dose. We had resumed LEVOTHYROXINE 10 mg and recommended endocrinology follow-up for thyroid function management. Hepatic encephalopathy has been waxing and waning. She has been on LACTULOSE since admission, however she continues to have abdominal distention, and unable to pass bowel. KUB showed large amount of stool in the colon. CT abdomen suggested SBO versus right colonic bowel ischemia. She was evaluated by general surgery who does not believe she has bowel ischemia given normal lactic acid, or bowel obstruction given that she has been passing stool although small amount. Today we performed a manual disimpaction with several stool removed, she was able to have a small bowel movement after that. NGT intermittent suction was initiated, however no success of removing stomach content. Currently NG tube is usually used for trickle feeds given that she is unable to tolerate oral intake, and her poor appetite. Additionally, given worsening abdominal distention, we initiated LACTULOSE for rectum, rectal tube was inserted. Continued on LACTULOSE and CEFTRIAXONE was increased to 2 mg daily. Afebrile, no leukocytosis. She had a an DONNA with creatinine around 3, likely ATN versus hepatorenal. However kidney function appears to have improved with current management, creatinine overall downtrending. Overall, no significant improvement in terms of hepatic encephalopathy despite aggressive management. However lab may show otherwise including renal function and vitals. We've initiated transfer to hepatology service for further management. Case was discussed with attending physician. Keith Daly DO PGY II This document was transcribed using voice recognition technology. Minor inaccuracies may be present. Documentation for date of: 01/27/25 Subjective Subjective Interval history: Patient seen at bedside. No acute overnight events. Patient continues to be very drowsy. But is cooperative and follows command. Patient feels the abdominal distention has not improved, patient had no bowel movement yet. Patient continues to feel weak. Exam Vital Signs Temp Pulse Resp BP Pulse Ox O2 Del Method O2 Flow Rate 97.2 F 108 H 15 128/63 94 L Nasal Cannula 5 01/27/25 04:00 01/27/25 05:26 01/27/25 04:00 01/27/25 05:26 01/27/25 04:00 01/27/25 04:00 01/27/25 04:00 Narrative Exam GENERAL Normal appearing adult female, NAD. HEENT NCAT. GEOVANNI. Oral mucosa is moist. Patent Nares NECK Supple, nontender, no JVD. CHEST RRR, no m/g/r, bilateral inspiratory crackles,no work of breathing, symmetrical expansion. ABDOMEN Soft, moderately distended, mildly tender throughout. No guarding/rebound tenderness/masses. Bowel sounds presents EXTREMITIES No edema/cyanosis. SKIN Warm and dry, no jaundice/rashes. Slightly pale. NEUROMUSCULAR Asterixis bilaterally of upper extremities. Moves all 4 extremities slowly, with full ROM. No focal neurologic deficits. PSYCHIATRY Normal mood and affect, cooperative, no hallucinations Objective Labs 01/28/25 05:05 01/28/25 05:05 Labs: Laboratory Results - last 24 hr 01/25/25 01/26/25 01/27/25 05:56 05:17 05:51 WBC 7.7 RBC 3.71 L Hgb 9.1 L Hct 27.9 L MCV 75 L MCH 24.5 L MCHC 32.6 RDW Std Deviation 42.5 Plt Count 176 D Neut % (Auto) 77 Lymph % (Auto) 8 L [place] % (Auto) 13 H Eos % (Auto) 1 Baso % (Auto) 1 Neut # (Auto) 5.9 Lymph # (Auto) 0.6 L [place] # (Auto) 1.0 H Eos # (Auto) 0.1 Baso # (Auto) 0.1 Immature Gran # (Auto) 0.02 H Absolute Nucleated RBC 0.00 Immature Gran % 0 Nucleated RBC % 0 PT 13.5 H INR 1.3 Sodium 137 Potassium 3.8 Chloride 98 Carbon Dioxide 25.7 Anion Gap 13 BUN 48 H Creatinine 2.7 H D Estim Creat Clear Calc 21.4 L eGFR 19 L BUN/Creatinine Ratio 18 Glucose 160 H Calculated Osmolality 289 Calcium 9.0 Corrected Calcium 9.1 Phosphorus 5.6 H Magnesium 2.1 Total Bilirubin 0.9 AST 25 ALT 13 Alkaline Phosphatase 126 H Total Protein 6.6 Albumin 3.9 Globulin 2.7 Albumin/Globulin Ratio 1.4 Coccidioides IgM Ab Negative ABG Interpretation ABG results: 01/26/25 05:17 VBG pH 7.43 VBG pCO2 37 VBG pO2 59 H VBG Base Excess 0 Quality Measures Quality Measures VTE prophylaxis Advance care planning discussed with:: patient Assessment & Plan Assessment Current Active Medications: Generic Name Dose Route Start Last Admin Trade Name Freq PRN Reason Stop Dose Admin Acetaminophen 650 mg 01/20/25 16:47 01/24/25 11:52 Acetaminophen 325 Mg Tablet PO 02/19/25 16:46 650 mg Q6H PRN Administration PAIN SCALE 1-3 (mild Acetaminophen 650 mg 01/20/25 16:47 01/24/25 19:47 Acetaminophen 325 Mg Tablet PO 02/19/25 16:46 650 mg Q6H PRN Administration Fever >100.4 Albuterol/Ipratropium 3 ml 01/20/25 18:38 Albuterol/Ipratropium (Duoneb) Rt Lisset 3 Ml Nebu INH 02/19/25 18:37 Q6HRRT PRN Wheezing Dextrose 25 ml 01/20/25 18:39 Dextrose 50%-Water Inj 50 Ml Syringe IV 02/19/25 18:38 Q15MIN PRN BG 50-70 responsive npo pt Dextrose 50 ml 01/20/25 18:39 Dextrose 50%-Water Inj 50 Ml Syringe IV 02/19/25 18:38 Q15MIN PRN BG <50 OR BG <70 & pt unresponsive Docusate Sodium 200 mg 01/24/25 21:00 01/26/25 08:15 Docusate Sod 100 Mg Capsule PO 02/23/25 20:59 200 mg QDAY REYNA Administration Protocol Escitalopram Oxalate 20 mg 01/24/25 16:30 01/26/25 08:15 Escitalopram Oxalate 10 Mg Tablet PO 02/23/25 16:29 20 mg QDAY REYNA Administration Ferrous Sulfate 325 mg 01/21/25 11:30 01/25/25 08:23 Ferrous Sulf 325 Mg Tablet PO 02/20/25 11:29 325 mg QOD REYNA Administration Furosemide 20 mg 01/22/25 18:00 01/24/25 05:38 Furosemide Inj 10 Mg/Ml Vial 2 Ml IVP 02/20/25 17:59 20 mg BIDD REYNA Administration Glucagon 1 mg 01/20/25 18:39 Glucagon Inj 1 Mg Vial IM Q15MIN PRN BG <70, and no IV access Glycerin 1 each 01/24/25 20:53 01/25/25 01:20 Glycerin, Adult 1 Ea Supp KS 02/23/25 20:52 1 each QDAY PRN Administration CONSTIPATION Heparin Sodium (Porcine) 5,000 unit 01/20/25 21:00 01/26/25 20:56 Heparin Sod Inj 5000 Unit/Ml Vial SC 02/03/25 20:59 5,000 unit BID REYNA Administration Hydromorphone HCl 0.25 mg 01/26/25 09:13 01/27/25 05:25 Hydromorphone Inj 2 Mg/Ml Vial IVP 01/29/25 00:09 0.25 mg Q6H PRN Administration BREAKTHROUGH PAIN (SEVERE) Albumin Human 25 gm in 100 mls @ 100 mls/hr 01/25/25 15:11 01/26/25 08:17 Albuminar-25 Ivpb IV 01/28/25 15:10 100 mls/hr QDAY REYNA Administration Ceftriaxone Sodium/Dextrose 1 gm in 50 mls @ 100 mls/hr 01/25/25 15:30 01/26/25 08:20 Rocephin/D5w 1gm Iv Premix IV 02/01/25 15:29 100 mls/hr QDAY REYNA Administration Insulin Human Lispro 0 unit 01/20/25 21:00 01/26/25 20:58 Insulin Lispro (Admelog) 1 Unit/0.01 Ml Unit SC 02/19/25 20:59 Not Given ACHS REYAN Protocol Lactulose 20 gm 01/25/25 17:00 01/26/25 05:56 Lactulose Syrup 20 Gm/30 Ml Udc PO 02/24/25 16:59 20 gm QID REYNA Administration Protocol Levothyroxine Sodium 112 mcg 01/21/25 06:00 01/27/25 05:26 Levothyroxine Sodium 112 Mcg Tablet PO 02/20/25 05:59 112 mcg ACBR REYNA Administration Lidocaine 1 patch 01/21/25 10:22 Lidocaine 5% 1 Patch TOP 02/20/25 10:21 UD PRN Back pain Protocol Liothyronine Sodium 10 mcg 01/25/25 14:15 01/26/25 08:13 Liothyronine Sod 5 Mcg Tablet PO 02/24/25 14:14 10 mcg QDAY REYNA Administration Loratadine 10 mg 01/21/25 09:00 01/26/25 08:20 Loratadine 10 Mg Tablet PO 02/20/25 08:59 10 mg QDAY REYNA Administration Metoprolol Succinate 50 mg 01/21/25 09:00 Metoprolol Succinate Xl 25 Mg Tabcr PO 02/20/25 08:59 QDAY REYNA Midodrine 15 mg 01/24/25 22:00 01/27/25 05:26 Midodrine 5 Mg Tablet PO 02/23/25 21:59 15 mg TID REYNA Administration Ondansetron HCl 4 mg 01/20/25 16:47 01/26/25 06:14 Ondansetron Inj 2 Mg/Ml Inj 2 Ml IVP 02/19/25 16:46 4 mg Q6H PRN Administration NAUSEA OR VOMITING Protocol Pantoprazole Sodium 40 mg 01/21/25 09:00 01/26/25 20:54 Pantoprazole Inj 40 Mg Vial IVP 02/20/25 08:59 40 mg BID REYNA Administration Pregabalin 150 mg 01/20/25 21:00 01/26/25 20:54 Pregabalin 75 Mg Capsule PO 02/19/25 20:59 150 mg BID REYNA Administration Rifaximin 550 mg 01/25/25 21:00 01/26/25 20:54 Rifaximin 550 Mg Tablet PO 02/01/25 20:59 550 mg BID REYNA Administration Simethicone 80 mg 01/26/25 08:38 Simethicone 80 Mg Chew PO 02/25/25 08:37 QID PRN GAS Zolpidem Tartrate 5 mg 01/25/25 21:00 01/26/25 20:58 Zolpidem 5 Mg Tablet PO 02/23/25 20:59 Not Given HS REYNA Plan Assessment: 64 year-old female with PMHx of alcoholic liver cirrhosis, COPD on home O2, hypothyroidism, asthma, HTN, T2DM and anxiety who presented to the ED with worsening ascites and abdominal discomfort. Admitted under observation for therapeutic/diagnostic paracentesis. Acute encephalopathy?new onset New onset fever, hypotension, low O2 saturations, tachycardia ?Constipation ?Hepatic encephalopathy Low suspicion of stroke as no focal neurological findings. Patient did have paracentesis which removed 8.4 L on 01/21/2025. Blood pressure had been soft since. Patient has been getting IV albumin. Patient has a bilateral tremor of the arms which is new in onset since >3days ago, patient is known to have tremors of the hands. Patient has had no alcohol since last year KUB showed large stool in rectosigmoid, few air distended small bowel loop EEG: diffuse slowing c/w hepatic encephalopathy ? Neurology following, see recommendations ? Cardiology following, see recommendations ? Pip-tazo 3.375 IV every 8 hours ? Increased midodrine to 15 mg 3 times daily ? Resumed escitalopram 20 mg daily home dose ? Holding metoclopramide ? Encourage BM movement Constipation Abdominal distention?not improving Patient has not had a bowel movement in a few days KUB showed large stool in rectosigmoid, few air distended small bowel loop CT abdomen pelvis 01/26/25 Cirrhosis with moderate ascites Significant splenomegaly Esophageal and perigastric varices Suspicious for ischemic right colon Small bowel obstruction pattern Recommend surgical consultation ? Dr Bradley consulted (general surgery), see recommendations ? Manual impaction tried today, with minimal success ? Lactulose 200 g KS daily Acute kidney injury new onset Prerenal ?Hepatorenal syndrome Likely secondary to hypotension Creatinine 2.7, downtrending Baseline Cr 0.9 ? Holding diuretics ? Monitor renal panel ? Renally dose meds, avoid overdiuresis and NEPHROTOXINS Decompensated alcoholic liver cirrhosis Significant ascites ?Hepatic encephalopathy Significant alcohol use history, cirrhosis diagnosed in 08/2023. Has been on SPIRONOLACTONE, presenting with 1 month of worsening abdominal ascites. Abdominal CT showed cirrhosis, significant ascites, prominent splenomegaly, anasarca, esophageal and perigastric varices, no bowel obstruction. Ultrasound gallbladder showed distended gallbladder, negative for cholelithiasis, mildly thickened gallbladder wall likely from ascites. Anasarca on exam, with 2+ bilateral extremity edema extending above the knee. MELD score 9 equates to 6% mortality in 3 months. Child-Wilhelm score 7, Class B, indication for transplant evaluation. Paracentesis removed 8.4 L fluids, ALBUMIN was given pre and post para. Paracentesis analysis: WBC 202, peritoneal RBC 1000, total protein 4, albumin 2.2, LD H108, glucose 137, amylase 29 SAAG < 1.1 g/dL Portal hypertension is not necessarily the cause of ascites Ultrasound guided paracentesis 01/28/2020 Abdominal sonographic images demonstrate sufficient ascitic fluid for paracentesis. After placing the Yueh catheter, 4550 cc of fluid were successfully removed. During and after completion of the procedure the patient appear in satisfactory and stable condition with no complications observed. ? Drained 4550 cc of fluid via paracentesis ? HOLDING LASIX 20 BID for lower extremity edema. ? Ceftriaxone 1 g every 24 hours for hepatic encephalopathy ? Rifaximin 550 mg p.o. twice daily for hepatic encephalopathy ? Continue SPIRONOLACTONE 25 mg BID ? Fluid restriction ? Sodium restriction of 2 g/day Hypothyroidism TSH 2.33 Free T4 1.15 Thyroxine T3 48.2 Free T3 0.8 Patient was taking liothyronine 20 mcg daily but was not started in hospital - Liothyronine 10 mcg daily started today, half of patient's home dose, under Dr. Jarvis's (endocrinology) recommendation ? Levothyroxine 112 mcg daily Microcytic anemia (stable) Grade 1 esophageal varices Mild thrombocytopenia (resolved) Hgb 8.9, baseline 11.4. Likely iron deficiency versus cirrhosis. CT showed esophageal and perigastric varices. Reports chronic, recurrent hemorrhoidal bleed, but denies dark stool or upper GI bleed. Had an EGD last year and was abnormal. She is on a 5-year colonoscopy scheduled for colonic polyps, last colonoscopy 5 years ago. B12 and folate WNL. Iron stores are low. EGD showed grade 1 lower third esophageal varices, moderate patchy hemorrhagic characteristic of the gastric antrum. GI recommended outpatient colonoscopy. Hemoglobin stable. ? Transfuse if Hgb less than 8 ? Will need PROPRANOLOL for variceal prophylaxis, if BP can tolerate ? Continue daily oral iron supplements HTN Asymptomatic sinus bradycardia Currently BP soft, normocardic. EKG shows sinus bradycardia, likely cirrhosis related on oral dysfunction versus BETA-BLOCKERS. ? Continue home LEVOTHYROXINE 112 mcg AC BR ? Consider resume home METOPROLOL when able ? Continue MIDODRINE 10 mg TID COPD, asthma Chronic respiratory failure, on home 2 L O2 No signs of asthma or COPD exacerbation ? DuoNebs q.6h. PRN ? [facility] T2DM A1c 7.7 from 08/2024. ? INSULIN sliding scale ? Accu-Cheks Elevated lipase Lipase 74, no nausea or vomiting, no epigastric pain subjectively on exam. No radiographic findings of acute pancreatitis. ? Continue to monitor Electrolyte abnormalities ? Daily labs, replete as needed Anxiety ? Continue home LYRICA Health maintenance Diet: Renal diet GI prophylaxis: PROTONIX DVT prophylaxis: SCDs Antibiotics: Ceftriaxone and rifaximin CODE STATUS: Full code Disposition: Admitted under observation for paracentesis Case discussed with my attending Dr. Jackman and senior resident Dr. Malika Kidd MD PGY-1 Attending Provider Attestation/Addendum Patient has cirrhosis, tense ascites, encephalopathy. Patient's daughter at bedside. Will plan on transferring to higher level of care for hepatology services. Spoke with [facility] transfers coordinator today. The patient is drowsy opens her eyes. Continue current medications and treatment. Patient seen and evaluated with housestaff
--- NOTE | 2025-01-27 09:31 | PD.RESPRO ---
Documentation for date of: 01/27/25 Subjective Subjective Interval history: History of present illness: Maria Elena Mario is a 64 year-old female with PMHx of alcoholic liver cirrhosis, COPD on home O2, hypothyroidism, asthma, HTN, T2DM and anxiety who presented to the ED with worsening abdominal pain and distention. On admission, patient reported worsening LE swelling in EVA LE, worsening over the last few months. She is also reports significant worsening abdominal distention over the last month. Associated with generalized abdominal pain and discomfort, in addition to difficulty laying flat secondary to abdominal distention. Also reports being constipated over the last few weeks. History of liver cirrhosis, diagnosed on recent visit from 08/2023. Previously she had a GI doctor in [place], but currently not following, states she is unsatisfied with this management. She follows up with an REGIONAL MEDICAL DIRECTOR at [facility] and has been awaiting a referral for a GI doctor in [facility]. She is scheduled for paracentesis next . However, she was sent to the ED for paracentesis but there were no available ophthalmic medical technician in the ED today to perform paracentesis. She has a history of polyposis, follow-up with GI in [place] regularly. She is on a 5-year colonoscopy schedule, last was done 5 years ago and showed polyps. EGD was also done last year which was normal. 01/25/2025 Today patient was seen and examined. Patient stated that she felt a little off, but did not have any new concerns/complaints. Patient stated that she has some abdominal tenderness. Patient denied any fever, chest pain, shortness of breath. Patient consulted to neprhology for DONNA 01/26/2025 No acute overnight events. Patient's blood pressure has been low 90/49 this AM, was given midodrine with improvement of bp. Today patient was seen and examined. Patient is making urine, but states she is not having any bowel movement. Patient states she is still having abdominal pain. Patient denied fever, chest pain, shortness of breath. 01/27/2025 No acute events overnight. Patient's vitals have been examined. Patient was seen and examined with noted mild bilateral wheezes. Patient has been making urine, on indwelling urinary catheter. Patient now has NG tube. Patient is being given lactulose and rifaximin via primary team. Patient continues to have abdominal pain. Patient noted to have very minimal bowel movement today. Patient denies having any new comlaints/concerns. Exam Vital Signs Temp Pulse Resp BP Pulse Ox O2 Del Method O2 Flow Rate 97.0 F 96 15 119/65 96 Nasal Cannula 5 01/27/25 08:00 01/27/25 08:00 01/27/25 08:00 01/27/25 08:00 01/27/25 08:00 01/27/25 08:00 01/27/25 08:00 Narrative Exam GENERAL APPEARANCE: no acute distress. HEENT: ?NC, AT. MMM. EOMI, clear conjunctiva. NECK: ?Supple without lymphadenopathy.? No stiffness or restricted ROM. HEART:? Normal rate and regular rhythm, no m/r/g LUNGS:? Bilateral crackles. No wheezes are heard. ABDOMEN: ?Soft, mild tenderness, distended, bowel sounds heard. BACK: No CVAT, no obvious deformity. EXTREMITIES: ?Without cyanosis, clubbing or edema. NEUROLOGICAL: ?Grossly nonfocal. Alert and oriented, moving all 4 extremities. Skin: ?Warm and dry without any rash. Objective Labs 01/27/25 05:51 01/27/25 05:51 Labs: Laboratory Results - last 24 hr 01/25/25 01/27/25 05:56 05:51 WBC 7.7 RBC 3.71 L Hgb 9.1 L Hct 27.9 L MCV 75 L MCH 24.5 L MCHC 32.6 RDW Std Deviation 42.5 Plt Count 176 D Neut % (Auto) 77 Lymph % (Auto) 8 L Callahan % (Auto) 13 H Eos % (Auto) 1 Baso % (Auto) 1 Neut # (Auto) 5.9 Lymph # (Auto) 0.6 L Callahan # (Auto) 1.0 H Eos # (Auto) 0.1 Baso # (Auto) 0.1 Immature Gran # (Auto) 0.02 H Absolute Nucleated RBC 0.00 Immature Gran % 0 Nucleated RBC % 0 Sodium 137 Potassium 3.8 Chloride 98 Carbon Dioxide 25.7 Anion Gap 13 BUN 48 H Creatinine 2.7 H D Estim Creat Clear Calc 21.4 L eGFR 19 L BUN/Creatinine Ratio 18 Glucose 160 H Calculated Osmolality 289 Calcium 9.0 Corrected Calcium 9.1 Phosphorus 5.6 H Magnesium 2.1 Total Bilirubin 0.9 AST 25 ALT 13 Alkaline Phosphatase 126 H Total Protein 6.6 Albumin 3.9 Globulin 2.7 Albumin/Globulin Ratio 1.4 Coccidioides IgM Ab Negative ABG Interpretation ABG results: 01/26/25 05:17 VBG pH 7.43 VBG pCO2 37 VBG pO2 59 H VBG Base Excess 0 Quality Measures Quality Measures VTE prophylaxis Advance care planning discussed with:: patient Assessment & Plan Assessment Current Active Medications: Generic Name Dose Route Start Last Admin Trade Name Freq PRN Reason Stop Dose Admin Acetaminophen 650 mg 01/20/25 16:47 01/24/25 11:52 Acetaminophen 325 Mg Tablet PO 02/19/25 16:46 650 mg Q6H PRN Administration PAIN SCALE 1-3 (mild Acetaminophen 650 mg 01/20/25 16:47 01/24/25 19:47 Acetaminophen 325 Mg Tablet PO 02/19/25 16:46 650 mg Q6H PRN Administration Fever >100.4 Albuterol/Ipratropium 3 ml 01/20/25 18:38 Albuterol/Ipratropium (Duoneb) Rt Lisset 3 Ml Nebu INH 02/19/25 18:37 Q6HRRT PRN Wheezing Dextrose 25 ml 01/20/25 18:39 Dextrose 50%-Water Inj 50 Ml Syringe IV 02/19/25 18:38 Q15MIN PRN BG 50-70 responsive npo pt Dextrose 50 ml 01/20/25 18:39 Dextrose 50%-Water Inj 50 Ml Syringe IV 02/19/25 18:38 Q15MIN PRN BG <50 OR BG <70 & pt unresponsive Docusate Sodium 200 mg 01/24/25 21:00 01/26/25 08:15 Docusate Sod 100 Mg Capsule PO 02/23/25 20:59 200 mg QDAY REYNA Administration Protocol Escitalopram Oxalate 20 mg 01/24/25 16:30 01/26/25 08:15 Escitalopram Oxalate 10 Mg Tablet PO 02/23/25 16:29 20 mg QDAY REYNA Administration Ferrous Sulfate 325 mg 01/21/25 11:30 01/25/25 08:23 Ferrous Sulf 325 Mg Tablet PO 02/20/25 11:29 325 mg QOD REYNA Administration Furosemide 20 mg 01/22/25 18:00 01/24/25 05:38 Furosemide Inj 10 Mg/Ml Vial 2 Ml IVP 02/20/25 17:59 20 mg BIDD REYNA Administration Glucagon 1 mg 01/20/25 18:39 Glucagon Inj 1 Mg Vial IM Q15MIN PRN BG <70, and no IV access Glycerin 1 each 01/24/25 20:53 01/25/25 01:20 Glycerin, Adult 1 Ea Supp [place] 02/23/25 20:52 1 each QDAY PRN Administration CONSTIPATION Heparin Sodium (Porcine) 5,000 unit 01/20/25 21:00 01/26/25 20:56 Heparin Sod Inj 5000 Unit/Ml Vial SC 02/03/25 20:59 5,000 unit BID REYNA Administration Hydromorphone HCl 0.25 mg 01/26/25 09:13 01/27/25 05:25 Hydromorphone Inj 2 Mg/Ml Vial IVP 01/29/25 00:09 0.25 mg Q6H PRN Administration BREAKTHROUGH PAIN (SEVERE) Albumin Human 25 gm in 100 mls @ 100 mls/hr 01/25/25 15:11 01/26/25 08:17 Albuminar-25 Ivpb IV 01/28/25 15:10 100 mls/hr QDAY REYNA Administration Ceftriaxone Sodium/Dextrose 1 gm in 50 mls @ 100 mls/hr 01/25/25 15:30 01/26/25 08:20 Rocephin/D5w 1gm Iv Premix IV 02/01/25 15:29 100 mls/hr QDAY REYNA Administration Insulin Human Lispro 0 unit 01/20/25 21:00 01/26/25 20:58 Insulin Lispro (Admelog) 1 Unit/0.01 Ml Unit SC 02/19/25 20:59 Not Given ACHS REYNA Protocol Lactulose 20 gm 01/25/25 17:00 01/26/25 05:56 Lactulose Syrup 20 Gm/30 Ml Udc PO 02/24/25 16:59 20 gm QID REYNA Administration Protocol Levothyroxine Sodium 112 mcg 01/21/25 06:00 01/27/25 05:26 Levothyroxine Sodium 112 Mcg Tablet PO 02/20/25 05:59 112 mcg ACBR REYNA Administration Lidocaine 1 patch 01/21/25 10:22 Lidocaine 5% 1 Patch TOP 02/20/25 10:21 UD PRN Back pain Protocol Liothyronine Sodium 10 mcg 01/25/25 14:15 01/26/25 08:13 Liothyronine Sod 5 Mcg Tablet PO 02/24/25 14:14 10 mcg QDAY REYNA Administration Loratadine 10 mg 01/21/25 09:00 01/26/25 08:20 Loratadine 10 Mg Tablet PO 02/20/25 08:59 10 mg QDAY REYNA Administration Metoprolol Succinate 50 mg 01/21/25 09:00 Metoprolol Succinate Xl 25 Mg Tabcr PO 02/20/25 08:59 QDAY REYNA Midodrine 15 mg 01/24/25 22:00 01/27/25 05:26 Midodrine 5 Mg Tablet PO 02/23/25 21:59 15 mg TID REYNA Administration Ondansetron HCl 4 mg 01/20/25 16:47 01/26/25 06:14 Ondansetron Inj 2 Mg/Ml Inj 2 Ml IVP 02/19/25 16:46 4 mg Q6H PRN Administration NAUSEA OR VOMITING Protocol Pantoprazole Sodium 40 mg 01/21/25 09:00 01/26/25 20:54 Pantoprazole Inj 40 Mg Vial IVP 02/20/25 08:59 40 mg BID REYNA Administration Pregabalin 150 mg 01/20/25 21:00 01/26/25 20:54 Pregabalin 75 Mg Capsule PO 02/19/25 20:59 150 mg BID REYNA Administration Rifaximin 550 mg 01/25/25 21:00 01/26/25 20:54 Rifaximin 550 Mg Tablet PO 02/01/25 20:59 550 mg BID REYNA Administration Simethicone 80 mg 01/26/25 08:38 Simethicone 80 Mg Chew PO 02/25/25 08:37 QID PRN GAS Zolpidem Tartrate 5 mg 01/25/25 21:00 01/26/25 20:58 Zolpidem 5 Mg Tablet PO 02/23/25 20:59 Not Given HS REYNA Plan Ms. Mario is a 64 year-old female with PMHx of alcoholic liver cirrhosis, COPD on home O2, hypothyroidism, asthma, HTN, T2DM and anxiety who presented to the ED with worsening ascites and abdominal discomfort. Admitted under observation for therapeutic/diagnostic paracentesis. Nephrology consulted for management of DONNA. # Acute Kidney Injury Patient noted to initially have DONNA with Cr 2.1, currently 2.7 (3.4 previous day; baseline around 1.0). Suspect due abdominal compression or hepatorenal syndrome. Abd US shows minimal ascitic fluid 01/25. Abd/Pelvis CT 01/26 showed moderate ascites. Primary team giving lactulose and rifaximin. Renal US did not show hydronephrosis. Currently making urine. Patient noted to have minimal bowel movement. -recommend to give GoLytely. -will hold fluids and diuretics -if no improvement, will consider renal replacement therapy. -trend CMP -renally dose medications #Acute encephalopathy?new onset #New onset fever, hypotension, low O2 saturations, tachycardia #?Presyncope #?Pulmonary embolism #?Seizures #Hyperkalemia, improved Significant ascites Alcoholic liver cirrhosis Microcytic anemia (stable) Grade 1 esophageal varices Mild thrombocytopenia (resolved) HTN Hypothyroidism Asymptomatic sinus bradycardia COPD, asthma Chronic respiratory failure, on home 2 L O2 T2DM Elevated lipase Electrolyte abnormalities Anxiety manage per primary team Thank you for allowing us be apart of the care team for Ms. Mario Patient plan of care was discussed with the attending physician, Dr. Mike Street MD PGY-1 Internal Medicine Attending Provider Attestation/Addendum Patient seen and examined with resident physician Dr. Srteet. Note reviewed, agree with findings and recommendations with changes made. Patient with longstanding history of liver cirrhosis manifested with ascites, hepatic encephalopathy. Patient's abdomen was significantly distended. Suspected ascites although ultrasound showed minimal ascitic fluid. KUB showed significant bowel distention. Spoke to primary team-insert Melendez, give GoLytely to decompress the abdomen. DONNA-multifactorial(prerenal state from abdominal compression syndrome due to significant abdominal distention versus hepatorenal syndrome type I) Patient making acceptable urine. If no improvement in azotemia-might need renal replacement therapy. Will reeval tomorrow. Today her mental status seems to be better. Although she still has asterixis. 01/27/2025 patient currently seen in telemetry. She is still a bit sleepy. Has NG tube. Still with abdominal distention. Patient was given lactulose. Might benefit from a GoLytely if no bowel movement. Patient had 4.5 l of peritoneal fluid drained. Creatinine 2.7.
--- NOTE | 2025-01-27 09:32 | PD.RESPRO ---
Documentation for date of: 01/27/25 Subjective Subjective Interval history: Patient seen at bedside accompanied by family. Continues to be sleepy upon exam. Exam Vital Signs Temp Pulse Resp BP Pulse Ox O2 Del Method O2 Flow Rate 97.0 F 96 15 119/65 96 Nasal Cannula 5 01/27/25 08:00 01/27/25 08:00 01/27/25 08:00 01/27/25 08:00 01/27/25 08:00 01/27/25 08:00 01/27/25 08:00 Narrative Exam General: No acute distress, lying in bed HENT: Normocephalic, atraumatic, hearing intact to conversation at normal volume\ Neck: Supple, non-tender Lungs: Non-labored respirations, symmetric chest rise Heart: Peripheral pulses intact bilaterally Abdomen: Distended Skin: Skin is warm, dry, no rashes or lesions. Psychiatric: Cooperative, appropriate mood and affect Neurologic: Mental status: Orientation: AOx2 Communication: Patient is cooperative and can follow simple instructions, though lethargic Language: Speech fluent, normal rate and volume, comprehension intact Cranial nerves: CN II: Visual suh intact CN III: Pupils equal, round, and reactive to light CN III, IV, : No gaze deviation, no nystagmus Horizontal pursuit: intact Vertical pursuit: intact Ptosis: none CN V: Facial sensation to light touch intact bilaterally at the forehead, cheeks, and jaw line CN VII: Face symmetric, no facial droop appreciated CN VIII: Able to hear and respond to conversation at normal volume, intact to finger rub CN IX, X: Palate elevation symmetric, uvula midline CN XI: Head turn and shoulder shrug strong, symmetric bilaterally CN XII: Normal tongue protrusion without deviation, no fasciculations Motor: No myoclonic jerking observed Muscle strength: b/l UE and LE 3/5 but easily fatigued Sensory: RUE: Light touch intact LUE: Light touch intact RLE: Light touch intact LLE: Light touch intact Reflexes: Biceps (C5-6): R 2+ L 2+ Brachioradialis (C5-6): R 2+ L 2+ Triceps (C7-8): R 2+ L 2+ Patellae (L3-4): R 2+ L 2+ Achilles (S1-2):R 2+ L 2+ Objective Labs 01/27/25 05:51 07/16/25 05:51 Labs: Laboratory Results - last 24 hr 01/25/25 01/27/25 05:56 05:51 WBC 7.7 RBC 3.71 L Hgb 9.1 L Hct 27.9 L MCV 75 L MCH 24.5 L MCHC 32.6 RDW Std Deviation 42.5 Plt Count 176 D Neut % (Auto) 77 Lymph % (Auto) 8 L Gaston % (Auto) 13 H Eos % (Auto) 1 Baso % (Auto) 1 Neut # (Auto) 5.9 Lymph # (Auto) 0.6 L Gaston # (Auto) 1.0 H Eos # (Auto) 0.1 Baso # (Auto) 0.1 Immature Gran # (Auto) 0.02 H Absolute Nucleated RBC 0.00 Immature Gran % 0 Nucleated RBC % 0 Sodium 137 Potassium 3.8 Chloride 98 Carbon Dioxide 25.7 Anion Gap 13 BUN 48 H Creatinine 2.7 H D Estim Creat Clear Calc 21.4 L eGFR 19 L BUN/Creatinine Ratio 18 Glucose 160 H Calculated Osmolality 289 Calcium 9.0 Corrected Calcium 9.1 Phosphorus 5.6 H Magnesium 2.1 Total Bilirubin 0.9 AST 25 ALT 13 Alkaline Phosphatase 126 H Total Protein 6.6 Albumin 3.9 Globulin 2.7 Albumin/Globulin Ratio 1.4 Coccidioides IgM Ab Negative ABG Interpretation ABG results: 01/26/25 05:17 VBG pH 7.43 VBG pCO2 37 VBG pO2 59 H VBG Base Excess 0 Quality Measures Quality Measures VTE prophylaxis Advance care planning discussed with:: patient Assessment & Plan Assessment Current Active Medications: Generic Name Dose Route Start Last Admin Trade Name Liliam PRN Reason Stop Dose Admin Acetaminophen 650 mg 01/20/25 16:47 01/24/25 11:52 Acetaminophen 325 Mg Tablet PO 02/19/25 16:46 650 mg Q6H PRN Administration PAIN SCALE 1-3 (mild Acetaminophen 650 mg 01/20/25 16:47 01/24/25 19:47 Acetaminophen 325 Mg Tablet PO 02/19/25 16:46 650 mg Q6H PRN Administration Fever >100.4 Albuterol/Ipratropium 3 ml 01/20/25 18:38 Albuterol/Ipratropium (Duoneb) Rt Lisset 3 Ml Nebu INH 02/19/25 18:37 Q6HRRT PRN Wheezing Dextrose 25 ml 01/20/25 18:39 Dextrose 50%-Water Inj 50 Ml Syringe IV 02/19/25 18:38 Q15MIN PRN BG 50-70 responsive npo pt Dextrose 50 ml 01/20/25 18:39 Dextrose 50%-Water Inj 50 Ml Syringe IV 02/19/25 18:38 Q15MIN PRN BG <50 OR BG <70 & pt unresponsive Docusate Sodium 200 mg 01/24/25 21:00 01/26/25 08:15 Docusate Sod 100 Mg Capsule PO 02/23/25 20:59 200 mg QDAY REYNA Administration Protocol Escitalopram Oxalate 20 mg 01/24/25 16:30 01/26/25 08:15 Escitalopram Oxalate 10 Mg Tablet PO 02/23/25 16:29 20 mg QDAY REYNA Administration Ferrous Sulfate 325 mg 01/21/25 11:30 01/25/25 08:23 Ferrous Sulf 325 Mg Tablet PO 02/20/25 11:29 325 mg QOD REYNA Administration Furosemide 20 mg 01/22/25 18:00 01/24/25 05:38 Furosemide Inj 10 Mg/Ml Vial 2 Ml IVP 02/20/25 17:59 20 mg BIDD REYNA Administration Glucagon 1 mg 01/20/25 18:39 Glucagon Inj 1 Mg Vial IM Q15MIN PRN BG <70, and no IV access Glycerin 1 each 01/24/25 20:53 01/25/25 01:20 Glycerin, Adult 1 Ea Supp [place] 02/23/25 20:52 1 each QDAY PRN Administration CONSTIPATION Heparin Sodium (Porcine) 5,000 unit 01/20/25 21:00 01/26/25 20:56 Heparin Sod Inj 5000 Unit/Ml Vial SC 02/03/25 20:59 5,000 unit BID REYNA Administration Hydromorphone HCl 0.25 mg 01/26/25 09:13 01/27/25 05:25 Hydromorphone Inj 2 Mg/Ml Vial IVP 01/29/25 00:09 0.25 mg Q6H PRN Administration BREAKTHROUGH PAIN (SEVERE) Albumin Human 25 gm in 100 mls @ 100 mls/hr 01/25/25 15:11 01/26/25 08:17 Albuminar-25 Ivpb IV 01/28/25 15:10 100 mls/hr QDAY REYNA Administration Ceftriaxone Sodium/Dextrose 1 gm in 50 mls @ 100 mls/hr 01/25/25 15:30 01/26/25 08:20 Rocephin/D5w 1gm Iv Premix IV 02/01/25 15:29 100 mls/hr QDAY REYNA Administration Insulin Human Lispro 0 unit 01/20/25 21:00 01/26/25 20:58 Insulin Lispro (Admelog) 1 Unit/0.01 Ml Unit SC 02/19/25 20:59 Not Given ACHS REYNA Protocol Lactulose 20 gm 01/25/25 17:00 01/26/25 05:56 Lactulose Syrup 20 Gm/30 Ml Udc PO 02/24/25 16:59 20 gm QID REYNA Administration Protocol Levothyroxine Sodium 112 mcg 01/21/25 06:00 01/27/25 05:26 Levothyroxine Sodium 112 Mcg Tablet PO 02/20/25 05:59 112 mcg ACBR REYNA Administration Lidocaine 1 patch 01/21/25 10:22 Lidocaine 5% 1 Patch TOP 02/20/25 10:21 UD PRN Back pain Protocol Liothyronine Sodium 10 mcg 01/25/25 14:15 01/26/25 08:13 Liothyronine Sod 5 Mcg Tablet PO 02/24/25 14:14 10 mcg QDAY REYNA Administration Loratadine 10 mg 01/21/25 09:00 01/26/25 08:20 Loratadine 10 Mg Tablet PO 02/20/25 08:59 10 mg QDAY REYNA Administration Metoprolol Succinate 50 mg 01/21/25 09:00 Metoprolol Succinate Xl 25 Mg Tabcr PO 02/20/25 08:59 QDAY REYNA Midodrine 15 mg 01/24/25 22:00 01/27/25 05:26 Midodrine 5 Mg Tablet PO 02/23/25 21:59 15 mg TID REYNA Administration Ondansetron HCl 4 mg 01/20/25 16:47 01/26/25 06:14 Ondansetron Inj 2 Mg/Ml Inj 2 Ml IVP 02/19/25 16:46 4 mg Q6H PRN Administration NAUSEA OR VOMITING Protocol Pantoprazole Sodium 40 mg 01/21/25 09:00 01/26/25 20:54 Pantoprazole Inj 40 Mg Vial IVP 02/20/25 08:59 40 mg BID REYNA Administration Pregabalin 150 mg 01/20/25 21:00 01/26/25 20:54 Pregabalin 75 Mg Capsule PO 02/19/25 20:59 150 mg BID REYNA Administration Rifaximin 550 mg 01/25/25 21:00 01/26/25 20:54 Rifaximin 550 Mg Tablet PO 02/01/25 20:59 550 mg BID REYNA Administration Simethicone 80 mg 01/26/25 08:38 Simethicone 80 Mg Chew PO 02/25/25 08:37 QID PRN GAS Zolpidem Tartrate 5 mg 01/25/25 21:00 01/26/25 20:58 Zolpidem 5 Mg Tablet PO 02/23/25 20:59 Not Given HS REYNA Plan # Bilateral tremors vs myoclonic jerking vs seizure, resolved # Aleterd mental status, improving Patient has had multiple episodes of altered mental status. On 01/22 patient was obtunded with generalized weakness stroke alert was called and symptoms resolved without intervention. NIHSS was [address] head was negative for hemorrhage. Another rapid response was called on 01/24 and 1130 for altered mental status with AO x 0, bilateral tremors concerning for seizures. Vitals reviewed and were WNL. Glucose was WNL. Head CT showed no acute findings. EKG showed sinus tachycardia. Ammonia was <10, troponin was negative. EEG: diffuse slowing c/w hepatic encephalopathy DDX: Seizures, electrolyte abnormalities, Wernicke's encephalopathy, DONNA/uremia, decompensated cirrhosis, hypothyroidism Patient's mental status is gradually improving as well as the asterixis and myoclonic jerks from hepatic encephalopathy. Plan: - Hold metoclopromide - Continue home Escitalopram and Primidone - Pending peritoneal fluid cx, blood cx - Management of abnormal electrolytes per primary - Encourage patient to have BM # Constipation KUB showed large stool in rectosigmoid, few air distended small bowel loop Patient had one BM today, soft in consistency Plan: - Encourage BM #DONNA #Prerenal Likely secondary to hypotension Baseline Cr 0.9 Plan: - Managed per primary # Decompensated alcoholic liver cirrhosis # Grade 1 esophageal varices Removed 8.7L from peritoneal fluid Abdominal CT showed cirrhosis, significant ascites, prominent splenomegaly, anasarca, esophageal and perigastric varices, no bowel obstruction. Ultrasound gallbladder showed distended gallbladder, negative for cholelithiasis, mildly thickened gallbladder wall likely from ascites. Paracentesis analysis: WBC 202, peritoneal RBC 1000, total protein 4, albumin 2.2, LD H108, glucose 137, amylase 29 SAAG < 1.1 g/dL Portal hypertension is not necessarily the cause of ascites. CT a/p w/o: Cirrhosis with moderate ascites, Significant splenomegaly, Esophageal and perigastric varices, Suspicious for ischemic right colon, Small bowel obstruction pattern Plan: - Management per primary - repeat paracentesis 01/27 # Hypothyroidism TSH 2.33 WNL Free T4 1.15 WNL Thyroxine T4 8.2 WNL Free T3 0.8 Low Home med: Liothyronine 20 mcg daily, levothyroxine 112 mcg daily Plan: - Management per primary - Liothyronine 10 mcg daily, Levothyroxine 112 mcg daily - Pending total T3 # Hypertension # Asymptomatic sinus bradycardia EKG shows sinus bradycardia, likely cirrhosis related on oral dysfunction versus beta blockers Plan: - Management per primary # COPD # Asthma # Chronic respiratory failure, on home 2 L O2 No signs of asthma or COPD exacerbation Plan: - Management per primary # T2DM A1c 7.7 from 08/2024 Plan: - Management per primary # Anxiety Plan: - Management per primary - continue home Pregabalin #DONNA BUN 48, Cr 2.7 BUN/Cr 18 Baseline Cr 1.0 Plan: - Management per primary, nephrology Plan discussed with Dr. Eufemia Bernard, PGY1 Attending Provider Attestation/Addendum I personally have seen and examined the patient at the bedside and I agreed with the resident's findings, assessment and plan of care. Continue to monitor her mental status closely. Overall she is showing gradual improvement with time.
[2025-01-27] MEDS: ALBUMIN HUMAN 25% IVPB 25 GM/100 ML BTL IV (10:28)
[2025-01-27] MEDS: cefTRIAXone/D5w 1gm IV premix 1 GM/50 ML BAG IV (10:28)
[2025-01-27] MEDS: HEPARIN SOD INJ 5000 UNIT/ML VIAL SC ×2 (10:33→21:50)
[2025-01-27] MEDS: DOCUSATE SOD 100 MG CAPSULE 200 MG PO (10:34)
[2025-01-27] MEDS: PREGABALIN 75 MG CAPSULE 150 MG PO ×2 (10:34→21:50)
[2025-01-27] MEDS: FERROUS SULF 325 MG TABLET PO (10:34)
[2025-01-27] MEDS: ESCITALOPRAM OXALATE 10 MG TABLET 20 MG PO (10:35)
[2025-01-27] MEDS: LIOTHYRONINE SOD 5 mCg TABLET 10 MCG PO (10:51)
[2025-01-27 11:04] LABS: Cocci Serology, IgG Negative (Negative)
--- NOTE | 2025-01-27 11:15 | XR_ITS ---
Examination: Ultrasound-guided paracentesis Abdominal sonogram limited Date and time of exam: January 27, 2025 1227 hours INDICATIONS: Cirrhosis, increasing ascites and abdominal distention this week Informed consent provided. A timeout was completed verifying correct patient, procedure, site, positioning, and special adequate movement if applicable. Technique: Multiple sonographic images of the abdomen have been obtained. Appropriate area for paracentesis was marked. Local anesthesia is obtained with 1% lidocaine. Yueh catheter is successfully introduced. Findings: Abdominal sonographic images demonstrate sufficient ascitic fluid for paracentesis. After placing the Yueh catheter, 4550 cc of fluid were successfully removed. During and after completion of the procedure the patient appear in satisfactory and stable condition with no complications observed. Estimated blood loss 0 cc Impression: Abdominal ascites Successful ultrasound-guided paracentesis as described above
--- NOTE | 2025-01-27 11:40 | PD.SURPROG ---
Documentation for date of: 01/27/25 Subjective Subjective Narrative: Patient is seen and examined. Currently she is resting comfortably. A CT scan was obtained yesterday that revealed significant ascites, dilated loops of small bowel, AirDrop in the right colon suspicious for ischemic colon Exam Vital Signs Temp Pulse Resp BP Pulse Ox O2 Del Method O2 Flow Rate 97.0 F 96 15 119/65 96 Nasal Cannula 5 01/27/25 08:00 01/27/25 08:00 01/27/25 08:00 01/27/25 08:00 01/27/25 08:00 01/27/25 08:00 01/27/25 08:00 Constitutional Constitutional: no acute distress Routine Abdominal Exam Comments: Abdomen is soft but distended. There is no evidence of diffuse peritonitis at this time Assessment & Plan Assessment Additional comments: Cirrhosis of the liver with ascites, large amount of stool throughout the colon. No clinical evidence of ischemic colon. Bowel movements were reported Plan Asked with Dr. Vigil who will attempt to perform paracentesis.
--- NOTE | 2025-01-27 11:52 | PC.NURSE ---
Dr. Corea at bedside with patient; will be administering enema and per Dr. Corea will be performing rectal disimpaction.
--- NOTE | 2025-01-27 14:28 | PCS.ST ---
Swallow Evaluation completed. See report for details. Not ready for diet at this time. Re-assess in AM.
--- NOTE | 2025-01-27 14:47 | PC.CC ---
Addendum entered by Franki Cook RN 01/27/25 19:33: 1914: received call from [facility], Peer to peer between Dr Montenegro and Dr Montana initiated. Dr. Montenegro declined patient as there is no OC need. Medically complexity is not a reason to transfer, pt is stable and improving per Dr. Montana. He stated he could not find a reason to transfer as well. Transfer on hold for now and will discuss the team in the morning. Addendum entered by Franki Cook RN 01/27/25 17:16: late entry: per rajeev no hepatology services avail at any of the [facility] facilities. Addendum entered by Franki Cook RN 01/27/25 17:15: 1644: called [facility], per Maryam, earlier clinicals were discarded. Clinicals and imaging resent. transfer request initiated. She stated a nurse will review and will call me back. 1525: Sent clinicals and imaging to [facility]. Addendum entered by Franki Cook RN 01/27/25 15:01: 1455: Called rajeev gutierrez gathered all info, put me on hold to check with nurse if hepatology service available 1452: no hepatology service per Geri browne/ KAREN Addendum entered by Franki Cook RN 01/27/25 14:51: 1450: called [facility], per Summer they do not hepatology. Original Note: received transfer order for Hepatology services for decompensated liver cirrhosis with worsening hepatic encephalopathy despite aggressive management. Clinicals and imaging sent to KAREN and SARAH. Clinicals sent to [facility]. CD X2 created.
--- NOTE | 2025-01-27 16:16 | PC.DIETICIAN ---
Nutrition prescription Trophic feeds of Nepro at 10 ml/hr via NG tube by pump. If no IV fluids, water flushes of 25 ml/hr (or per MD). If tolerated, will advance towards goal tomorrow: Nepro at 20 ml/hr via NG tube by pump. Advance 10 ml every 8 hrs to goal rate of 40 ml/hr x 22 hrs. If no IV fluids, water flushes of 25 ml/hr (or per MD). -Hold TF for one hour before and after levothyroxine administration-
--- NOTE | 2025-01-27 16:40 | ESPR_ITS ---
<Statement entered by Erin Tomas MD - 01/28/25 14:39> I personally evaluated and examined the patient along with resident physician Dr. pilar Zhou MD agree with the treatment plan recommendation patient did have paracentesis of her 4 L of fluid removed renal function slightly improving. Documentation for date of: 01/27/25 Subjective Subjective Interval history: Patient is seen and examined at bedside No acute overnight events. Patient appears to be drowsy but able to respond to questions appropriately, endorsed that she is feeling tired and unable to talk Vitals are stable and labs showed improvement in renal functions. Patient's heart rate is around 90 bpm, sinus rhythm Underwent paracentesis with removal of around 4 L of fluid. Underwent manual disimpaction of the stools. No surgical intervention as of now Recommended to continue current management, hold diuresis for now. Primary team is trying to transfer patient to higher center for further management Exam Vital Signs Temp Pulse Resp BP Pulse Ox O2 Del Method O2 Flow Rate 97.2 F 93 17 114/60 96 Nasal Cannula 4 01/27/25 14:00 01/27/25 15:24 01/27/25 14:00 01/27/25 15:24 01/27/25 14:00 01/27/25 14:00 01/27/25 14:00 Narrative Exam General: Awake. Looking HEENT: Normocephalic, atraumatic, mucous membranes moist. Heart: Regular rate and rhythm, no murmurs. Lungs: Clear to auscultation with no wheezing or crackles. Abdomen: Soft, moderate to severely distended, mild to moderate tenderness noted throughout the abdomen, positive bowel sounds. ?No guarding or rebound tenderness. Neurologic: Alert and oriented x3, no gross neurological deficit, and patient able to move all 4 extremities. Extremities: No edema. Skin: No rash or ecchymoses. Objective Labs 01/28/25 05:05 01/28/25 05:05 Labs: Laboratory Results - last 24 hr 01/25/25 01/27/25 05:56 05:51 WBC 7.7 RBC 3.71 L Hgb 9.1 L Hct 27.9 L MCV 75 L MCH 24.5 L MCHC 32.6 RDW Std Deviation 42.5 Plt Count 176 D Neut % (Auto) 77 Lymph % (Auto) 8 L [place] % (Auto) 13 H Eos % (Auto) 1 Baso % (Auto) 1 Neut # (Auto) 5.9 Lymph # (Auto) 0.6 L [place] # (Auto) 1.0 H Eos # (Auto) 0.1 Baso # (Auto) 0.1 Immature Gran # (Auto) 0.02 H Absolute Nucleated RBC 0.00 Immature Gran % 0 Nucleated RBC % 0 Sodium 137 Potassium 3.8 Chloride 98 Carbon Dioxide 25.7 Anion Gap 13 BUN 48 H Creatinine 2.7 H D Estim Creat Clear Calc 21.4 L eGFR 19 L BUN/Creatinine Ratio 18 Glucose 160 H Calculated Osmolality 289 Calcium 9.0 Corrected Calcium 9.1 Phosphorus 5.6 H Magnesium 2.1 Total Bilirubin 0.9 AST 25 ALT 13 Alkaline Phosphatase 126 H Total Protein 6.6 Albumin 3.9 Globulin 2.7 Albumin/Globulin Ratio 1.4 Coccidioides IgG Ab Negative ABG Interpretation ABG results: 01/26/25 05:17 VBG pH 7.43 VBG pCO2 37 VBG pO2 59 H VBG Base Excess 0 Quality Measures Quality Measures VTE prophylaxis Advance care planning discussed with:: patient and child Assessment & Plan Assessment Current Active Medications: Generic Name Dose Route Start Last Admin Trade Name Freq PRN Reason Stop Dose Admin Acetaminophen 650 mg 01/20/25 16:47 01/24/25 11:52 Acetaminophen 325 Mg Tablet PO 02/19/25 16:46 650 mg Q6H PRN Administration PAIN SCALE 1-3 (mild Acetaminophen 650 mg 01/20/25 16:47 01/24/25 19:47 Acetaminophen 325 Mg Tablet PO 02/19/25 16:46 650 mg Q6H PRN Administration Fever >100.4 Albuterol/Ipratropium 3 ml 01/20/25 18:38 Albuterol/Ipratropium (Duoneb) Rt Lisset 3 Ml Nebu INH 02/19/25 18:37 Q6HRRT PRN Wheezing Dextrose 25 ml 01/20/25 18:39 Dextrose 50%-Water Inj 50 Ml Syringe IV 02/19/25 18:38 Q15MIN PRN BG 50-70 responsive npo pt Dextrose 50 ml 01/20/25 18:39 Dextrose 50%-Water Inj 50 Ml Syringe IV 02/19/25 18:38 Q15MIN PRN BG <50 OR BG <70 & pt unresponsive Docusate Sodium 200 mg 01/24/25 21:00 01/27/25 10:34 Docusate Sod 100 Mg Capsule PO 02/23/25 20:59 200 mg QDAY REYNA Administration Protocol Escitalopram Oxalate 20 mg 01/24/25 16:30 01/27/25 10:35 Escitalopram Oxalate 10 Mg Tablet PO 02/23/25 16:29 20 mg QDAY REYNA Administration Ferrous Sulfate 325 mg 01/21/25 11:30 01/27/25 10:34 Ferrous Sulf 325 Mg Tablet PO 02/20/25 11:29 325 mg QOD REYNA Administration Furosemide 20 mg 01/22/25 18:00 01/24/25 05:38 Furosemide Inj 10 Mg/Ml Vial 2 Ml IVP 02/20/25 17:59 20 mg BIDD REYNA Administration Glucagon 1 mg 01/20/25 18:39 Glucagon Inj 1 Mg Vial IM Q15MIN PRN BG <70, and no IV access Glycerin 1 each 01/24/25 20:53 01/25/25 01:20 Glycerin, Adult 1 Ea Supp [place] 02/23/25 20:52 1 each QDAY PRN Administration CONSTIPATION Heparin Sodium (Porcine) 5,000 unit 01/20/25 21:00 01/27/25 10:33 Heparin Sod Inj 5000 Unit/Ml Vial SC 02/03/25 20:59 5,000 unit BID REYNA Administration Hydromorphone HCl 0.25 mg 01/26/25 09:13 01/27/25 05:25 Hydromorphone Inj 2 Mg/Ml Vial IVP 01/29/25 00:09 0.25 mg Q6H PRN Administration BREAKTHROUGH PAIN (SEVERE) Albumin Human 25 gm in 100 mls @ 100 mls/hr 01/25/25 15:11 01/27/25 10:28 Albuminar-25 Ivpb IV 01/28/25 15:10 100 mls/hr QDAY REYNA Administration Ceftriaxone Sodium/Dextrose 1 gm in 50 mls @ 100 mls/hr 01/25/25 15:30 01/27/25 10:28 Rocephin/D5w 1gm Iv Premix IV 02/01/25 15:29 100 mls/hr QDAY REYNA Administration Insulin Human Lispro 0 unit 01/20/25 21:00 01/27/25 13:08 Insulin Lispro (Admelog) 1 Unit/0.01 Ml Unit SC 02/19/25 20:59 Not Given ACHS REYNA Protocol Lactulose 200 gm 01/27/25 12:45 Lactulose Syrup 20 Gm/30 Ml Udc [place] 02/26/25 12:44 QDAY REYNA Levothyroxine Sodium 112 mcg 01/21/25 06:00 01/27/25 05:26 Levothyroxine Sodium 112 Mcg Tablet PO 02/20/25 05:59 112 mcg ACBR REYNA Administration Lidocaine 1 patch 01/21/25 10:22 Lidocaine 5% 1 Patch TOP 02/20/25 10:21 UD PRN Back pain Protocol Liothyronine Sodium 10 mcg 01/25/25 14:15 01/27/25 10:51 Liothyronine Sod 5 Mcg Tablet PO 02/24/25 14:14 10 mcg QDAY REYNA Administration Loratadine 10 mg 01/21/25 09:00 01/27/25 10:34 Loratadine 10 Mg Tablet PO 02/20/25 08:59 10 mg QDAY REYNA Administration Metoprolol Succinate 50 mg 01/21/25 09:00 Metoprolol Succinate Xl 25 Mg Tabcr PO 02/20/25 08:59 QDAY REYNA Midodrine 15 mg 01/24/25 22:00 01/27/25 15:24 Midodrine 5 Mg Tablet PO 02/23/25 21:59 15 mg TID REYNA Administration Ondansetron HCl 4 mg 01/20/25 16:47 01/26/25 06:14 Ondansetron Inj 2 Mg/Ml Inj 2 Ml IVP 02/19/25 16:46 4 mg Q6H PRN Administration NAUSEA OR VOMITING Protocol Pantoprazole Sodium 40 mg 01/21/25 09:00 01/27/25 10:33 Pantoprazole Inj 40 Mg Vial IVP 02/20/25 08:59 40 mg BID REYNA Administration Pregabalin 150 mg 01/20/25 21:00 01/27/25 10:34 Pregabalin 75 Mg Capsule PO 02/19/25 20:59 150 mg BID REYNA Administration Rifaximin 550 mg 01/25/25 21:00 01/27/25 10:33 Rifaximin 550 Mg Tablet PO 02/01/25 20:59 550 mg BID REYNA Administration Simethicone 80 mg 01/26/25 08:38 Simethicone 80 Mg Chew PO 02/25/25 08:37 QID PRN GAS Zolpidem Tartrate 5 mg 01/25/25 21:00 01/26/25 20:58 Zolpidem 5 Mg Tablet PO 02/23/25 20:59 Not Given HS REYNA Plan Ms. Mario is a 64-year-old female with past medical history significant for decompensated liver cirrhosis (diagnosed in October 2024), COPD on home oxygen, asthma, hypothyroidism, hypertension, type 2 diabetes and anxiety presented to the ED on 01/20/25 complaining of worsening abdominal pain and distention. Cardiology is consulted due to tachycardia and hypotension. #Syncopal episode #Pulmonary arterial hypertension -ruled out #Portal hypertension #Hepatorenal Syndrome #Sinus tachycardia secondary to fevers- resolved #Hypotension -Patient has been in the hospital since 01/20 however since midnight overnight patient has been having sinus tachycardia and fever. Telemetry is reviewed patient is in sinus rhythm. Since patient is a high risk for peritonitis in the setting of end-stage liver disease patient's tachycardia is likely from the fevers indicating possible source of infection. -Low cardiac suspicion for her symptoms right now, patient's hypotension is due to current illness as patient had 8.4 L of fluid removed via paracentesis. EKG: Sinus tachycardia with rate of 120 and QTc 449 Plan: -Continue treating patient's decompensated liver cirrhosis -Continue broad-spectrum IV antibiotics for possible source of infection -Recommended to hold Lasix and spironolactone for now -Continue to hold metoprolol XL to avoid masking tachycardia in the setting of possible infection -Recommend increasing midodrine to 15 mg 3 times daily for hypotension -Recommend albumin with paracenthesis -Continue low-sodium 2 g diet -Strict ins and outs -Echo showed good cardiac activity with EF >60% and no evidence of PAH #End-stage liver disease #Altered mental status- improved #Idg-[id number] type 2 diabetes #Primary hypertension #Hypothyroidism #COPD #Asthma #Anxiety Management as per primary team Thank you for the consult and allowing us to participate in the care of the patient. Cardiology will continue to follow. Patient plan of care was discussed with the termite renewal inspector, Dr. Thom Beltrán, PGY2
[2025-01-27] MEDS: LACTULOSE SYRUP 20 GM/30 ML UDC 200 GM PR (17:57)
--- NOTE | 2025-01-27 19:52 | PD.IMPROG ---
Documentation for date of: 01/27/25 Subjective Subjective Interval history: Patient drowsy Large-volume ultrasound-guided paracentesis 4500 cc was taken out Exam Vital Signs Temp Pulse Resp BP Pulse Ox O2 Del Method O2 Flow Rate 97.1 F 69 20 109/61 96 Nasal Cannula 3 01/27/25 16:00 01/27/25 16:55 01/27/25 16:55 01/27/25 16:00 01/27/25 16:55 01/27/25 16:00 01/27/25 16:55 Objective Labs 01/27/25 05:51 01/27/25 05:51 Labs: Laboratory Results - last 24 hr 01/25/25 01/27/25 05:56 05:51 WBC 7.7 RBC 3.71 L Hgb 9.1 L Hct 27.9 L MCV 75 L MCH 24.5 L MCHC 32.6 RDW Std Deviation 42.5 Plt Count 176 D Neut % (Auto) 77 Lymph % (Auto) 8 L [place] % (Auto) 13 H Eos % (Auto) 1 Baso % (Auto) 1 Neut # (Auto) 5.9 Lymph # (Auto) 0.6 L [place] # (Auto) 1.0 H Eos # (Auto) 0.1 Baso # (Auto) 0.1 Immature Gran # (Auto) 0.02 H Absolute Nucleated RBC 0.00 Immature Gran % 0 Nucleated RBC % 0 Sodium 137 Potassium 3.8 Chloride 98 Carbon Dioxide 25.7 Anion Gap 13 BUN 48 H Creatinine 2.7 H D Estim Creat Clear Calc 21.4 L eGFR 19 L BUN/Creatinine Ratio 18 Glucose 160 H Calculated Osmolality 289 Calcium 9.0 Corrected Calcium 9.1 Phosphorus 5.6 H Magnesium 2.1 Total Bilirubin 0.9 AST 25 ALT 13 Alkaline Phosphatase 126 H Total Protein 6.6 Albumin 3.9 Globulin 2.7 Albumin/Globulin Ratio 1.4 Coccidioides IgG Ab Negative Impressions Impression: Decompensated chronic liver disease Ischemic right colon with air droplets Continue present antibiotics Possible transfer to a tertiary center ABG Interpretation ABG results: 01/26/25 05:17 VBG pH 7.43 VBG pCO2 37 VBG pO2 59 H VBG Base Excess 0 Assessment & Plan A&P Narrative # Decompensated alcoholic liver disease with advanced portal hypertension esophageal varices and intractable ascites Plan Agree with the IV Lasix Agree with IV albumin Add spironolactone 25 mg p.o. twice daily Scheduled for therapeutic paracentesis Monitor renal function closely Consent obtained for fiberoptic esophagogastroduodenoscopy with possible biopsy possible therapeutic intervention for prophylactic band ligation of the esophageal varices Agree with IV ceftriaxone for the possibility of subacute bacterial peritonitis Will follow the patient Other medical problems include COPD on home oxygen 2 L nasal cannula Essential hypertension Hypothyroidism Hyperlipidemia Thank you very much for the opportunity to participate in care of this patient Time Spent With Patient Time: Total time spent is greater than 50% in coordination of care (as documented) at patient's floor/unit and/or counseling patient:
[2025-01-27] MEDS: ZOLPIDEM 5 MG TABLET PO (21:50)
[2025-01-28] VITALS (16 sets, daily range): BP systolic 109–153; BP diastolic 50–71; PULSE 95–128; RESP 14–26; TEMP 36.1–37.2; O2SAT 92–95; BMI 30.5
--- NOTE | 2025-01-28 04:55 | PC.NURSE ---
BANQUET SUPERVISOR called due to patient increased AMS. See BANQUET SUPERVISOR form
--- NOTE | 2025-01-28 05:13 | PD.RESEVENT ---
Documentation for date of: 01/28/25 Event Note Event Note: 01/28/2025: Rapid response called sometime around 5 AM for patient in room 262 having increased level of confusion and apparently pulled out her NG tube. Patient seen and assessed in hospital bed awake and answering questions appropriately but slowly. Patient's airway/breathing/circulation intact and on examination patient has distended abdomen with fluid wave secondary to ascites from cirrhosis. On auscultation of heart and lungs there is clear grade 4 out of 6 systolic ejection murmur but lungs sound clear on auscultation bilaterally. Patient is apparently been having bowel movements with lactulose enema; moreover, will give an additional dose and order ammonia level stat and follow-up accordingly. Will continue to monitor the patient closely. Michael Roberto DO PGY-2 Internal Medicine - GME Attending attestation: I reviewed labs, imaging, EKG, home medications and prior available records. Face to face evaluation was performed by me. I have personally examined the patient and discussed assessment and plan with the IM team. I reviewed the resident note and agree with the plan with exceptions as below. Patient was declined by [facility] on the night of 01/27 as medical complexity was not enough reason and hematology management is available with frequent paracentesis and lactulose/rifaximin Recommended frequent paracentesis and administration of lactulose/rifaximin in addition to observation follow-up with hepatology for evaluation for liver transplant Discussed the case with the transfer nurse who will put the case on hold.
[2025-01-28 05:14] LABS: Basophils # (Auto) 0.0 Thou/mm3 (0.0-0.2); Basophils % (Auto) 1 % (0-2.5); Eosinophils # (Auto) 0.0 Thou/mm3 (0.0-0.5); Eosinophils % (Auto) 1 % (0-10); Hematocrit 27.3 % (36.0-46.0); Hemoglobin 8.9 g/dL (12.0-16.0); Immature Granulocytes Auto 0.02 Thou/mm3 (0.00-0.00); Lymphocytes # (Auto) 0.7 Thou/mm3 (1.0-4.8); Lymphocytes % (Auto) 14 % (10-50); Mean Corpuscular HGB Conc 32.6 g/dl (31.0-37.0); Mean Corpuscular Hemoglobin 24.5 pg (25.0-35.0); Mean Corpuscular Volume 75 fL (80-100); Monocytes # (Auto) 0.8 Thou/mm3 (0.0-0.8); Monocytes % (Auto) 14 % (0-12); Neutrophils # (Auto) 3.9 Thou/mm3 (1.8-7.7); Neutrophils % (Auto) 71 % (37-80); Nucleated Red Blood Cell # 0.00 Thou/mm3 (0.00-0.00); Nucleated Red Blood Cell % 0 /100 WBC (0); Platelet Count 156 Thou/mm3 (140-440); RDW Standard Deviation 41.7 fL (36.4-46.3); Red Blood Count 3.64 Miln/mm3 (4.00-5.20); White Blood Count 5.5 Thou/mm3 (3.6-11.0)
[2025-01-28] MEDS: LACTULOSE SYRUP 20 GM/30 ML UDC 200 GM PR ×2 (05:53→10:14)
[2025-01-28 06:01] LABS: Ammonia 44 uMol/L (11-32)
[2025-01-28 06:05] LABS: Alanine Aminotransferase 11 U/L (10-49); Albumin, Serum 3.7 gm/dL (3.4-4.8); Albumin/Globulin Ratio 1.4 (1.2-2.2); Alkaline Phosphatase 127 U/L (46-116); Anion Gap 10 (7-16); Aspartate Amino Transferase 22 U/L (0-34); BUN/Creatinine Ratio 28 Ratio (12-20); Bilirubin,Total 0.9 mg/dL (0.3-1.2); Blood Urea Nitrogen 39 mg/dL (9-23); Calcium 9.0 mg/dL (8.3-10.6); Calcium (Corrected) 9.2 mg/dL (8.5-10.1); Carbon Dioxide 25.6 mMol/L (20.0-31.0); Chloride 102 mMol/L (98-107); Creatinine (Component) 1.4 mg/dL (0.6-1.3); Estimated Creatinine Clearance 41.3 mL/min (>60); Globulin 2.6 gm/dL (2.3-3.5); Glucose 154 mg/dL (74-106); Magnesium 1.8 mg/dL (1.6-2.6); Osmolality,Calculated 288 (275-295); Phosphorous 2.1 mg/dL (2.4-5.1); Potassium 3.5 mMol/L (3.4-5.1); Sodium 138 mMol/L (136-145); Total Protein 6.3 gm/dL (5.7-8.2); eGFR 42 See Note
[2025-01-28 06:31] LABS: INR 1.1 (0.9-1.3); Prothrombin Time 12.0 Seconds (9.0-12.2)
--- NOTE | 2025-01-28 08:47 | ESPR_ITS ---
<Statement entered by Keith Daly MD - 01/29/25 16:22> 64-year-old female admitted for decompensated liver cirrhosis. Initially, she had paracentesis with 8.4 L removed. ALBUMIN was started preemptively however her blood pressure dropped after paracentesis. Currently blood pressures stable with MIDODRINE TID and daily ALBUMIN infusions. Around day 2 of admission, she been showing symptoms of hepatic encephalopathy including altered mental status, asterixis, and bilateral myoclonus. Initially we suspected either polypharmacy or withdrawal from ANXIOLYTIC medications that she takes at home. Neurology was consulted and currently managing her anxiolytics. EEG was done showing diffuse slowing, suggestive of hepatic encephalopathy, no signs of seizure activities. Additionally, she was on a large dose of thyroid hormone including LEVOTHYROXINE and liothyronine 20 mEq daily, which is relatively high dose. We had resumed LEVOTHYROXINE 10 mg and recommended endocrinology follow-up for thyroid function management. Hepatic encephalopathy has been waxing and waning. She has been on LACTULOSE since admission, however she continues to have abdominal distention, and unable to pass bowel. KUB showed large amount of stool in the colon. CT abdomen suggested SBO versus right colonic bowel ischemia. She was evaluated by general surgery who does not believe she has bowel ischemia given normal lactic acid, or bowel obstruction given that she has been passing stool although small amount. Today we performed a manual disimpaction with several stool removed, she was able to have a small bowel movement after that. NGT intermittent suction was initiated, however no success of removing stomach content. Currently NG tube is usually used for trickle feeds given that she is unable to tolerate oral intake, and her poor appetite. Additionally, given worsening abdominal distention, we initiated LACTULOSE for rectum, rectal tube was inserted. Continued on LACTULOSE and CEFTRIAXONE was increased to 2 mg daily. Afebrile, no leukocytosis. She had a an DONNA with creatinine around 3, likely ATN versus hepatorenal. Kidney function continues improving. Overall encephalopathy is improving. Bowels have been regular, having about 5 bowel movements daily with [place] LACTULOSE. We've added FLUCONAZOLE as well given poor response to treatment, and spike of fever today. Case was discussed with attending physician. Keith Daly DO PGY II This document was transcribed using voice recognition technology. Minor inaccuracies may be present. Documentation for date of: 01/28/25 Subjective Subjective Interval history: Patient seen at bedside. A rapid response was called for increased confusion and pulling out her NG tube, see event note for further details. Patient's blood pressure has been stable since the paracentesis yesterday, abdominal distention slightly better, she had total 4 BMs today. Exam Vital Signs Temp Pulse Resp BP Pulse Ox O2 Del Method O2 Flow Rate 97.3 F 101 H 18 133/68 H 93 L Nasal Cannula 2 01/28/25 04:55 01/28/25 05:56 01/28/25 04:55 01/28/25 05:56 01/28/25 04:55 01/28/25 03:53 01/28/25 04:55 Narrative Exam GENERAL Normal appearing adult female, NAD. HEENT NCAT. GEOVANNI. Oral mucosa is moist. Patent Nares NECK Supple, nontender, no JVD. CHEST RRR, no m/g/r, bilateral inspiratory crackles,no work of breathing, symmetrical expansion. ABDOMEN Soft, moderately distended, mildly tender throughout. No guarding/rebound tenderness/masses. Bowel sounds presents EXTREMITIES No edema/cyanosis. SKIN Warm and dry, no jaundice/rashes. Slightly pale. NEUROMUSCULAR Asterixis bilaterally of upper extremities. Moves all 4 extremities slowly, with full ROM. No focal neurologic deficits. PSYCHIATRY Normal mood and affect, cooperative, no hallucinations Objective Labs 01/29/25 05:56 01/29/25 05:56 Labs: Laboratory Results - last 24 hr 01/25/25 01/28/25 05:56 05:05 WBC 5.5 RBC 3.64 L Hgb 8.9 L Hct 27.3 L MCV 75 L MCH 24.5 L MCHC 32.6 RDW Std Deviation 41.7 Plt Count 156 Neut % (Auto) 71 Lymph % (Auto) 14 Crockett % (Auto) 14 H Eos % (Auto) 1 Baso % (Auto) 1 Neut # (Auto) 3.9 Lymph # (Auto) 0.7 L Crockett # (Auto) 0.8 Eos # (Auto) 0.0 Baso # (Auto) 0.0 Immature Gran # (Auto) 0.02 H Absolute Nucleated RBC 0.00 Immature Gran % 0 Nucleated RBC % 0 PT 12.0 INR 1.1 Sodium 138 Potassium 3.5 Chloride 102 Carbon Dioxide 25.6 Anion Gap 10 BUN 39 H Creatinine 1.4 H D Estim Creat Clear Calc 41.3 L eGFR 42 L BUN/Creatinine Ratio 28 H Glucose 154 H Calculated Osmolality 288 Calcium 9.0 Corrected Calcium 9.2 Phosphorus 2.1 L Magnesium 1.8 Total Bilirubin 0.9 AST 22 ALT 11 Alkaline Phosphatase 127 H Ammonia 44 H Total Protein 6.3 Albumin 3.7 Globulin 2.6 Albumin/Globulin Ratio 1.4 Coccidioides IgG Ab Negative ABG Interpretation ABG results: 01/26/25 05:17 VBG pH 7.43 VBG pCO2 37 VBG pO2 59 H VBG Base Excess 0 Quality Measures Quality Measures VTE prophylaxis Advance care planning discussed with:: patient Assessment & Plan Assessment Current Active Medications: Generic Name Dose Route Start Last Admin Trade Name Freq PRN Reason Stop Dose Admin Acetaminophen 650 mg 01/20/25 16:47 01/24/25 11:52 Acetaminophen 325 Mg Tablet PO 02/19/25 16:46 650 mg Q6H PRN Administration PAIN SCALE 1-3 (mild Acetaminophen 650 mg 01/20/25 16:47 01/24/25 19:47 Acetaminophen 325 Mg Tablet PO 02/19/25 16:46 650 mg Q6H PRN Administration Fever >100.4 Albuterol/Ipratropium 3 ml 01/20/25 18:38 Albuterol/Ipratropium (Duoneb) Rt Lisset 3 Ml Nebu INH 02/19/25 18:37 Q6HRRT PRN Wheezing Dextrose 25 ml 01/20/25 18:39 Dextrose 50%-Water Inj 50 Ml Syringe IV 02/19/25 18:38 Q15MIN PRN BG 50-70 responsive npo pt Dextrose 50 ml 01/20/25 18:39 Dextrose 50%-Water Inj 50 Ml Syringe IV 02/19/25 18:38 Q15MIN PRN BG <50 OR BG <70 & pt unresponsive Docusate Sodium 200 mg 01/24/25 21:00 01/27/25 10:34 Docusate Sod 100 Mg Capsule PO 02/23/25 20:59 200 mg QDAY REYNA Administration Protocol Escitalopram Oxalate 20 mg 01/24/25 16:30 01/27/25 10:35 Escitalopram Oxalate 10 Mg Tablet PO 02/23/25 16:29 20 mg QDAY REYNA Administration Ferrous Sulfate 325 mg 01/21/25 11:30 01/27/25 10:34 Ferrous Sulf 325 Mg Tablet PO 02/20/25 11:29 325 mg QOD REYNA Administration Furosemide 20 mg 01/22/25 18:00 01/24/25 05:38 Furosemide Inj 10 Mg/Ml Vial 2 Ml IVP 02/20/25 17:59 20 mg BIDD REYNA Administration Glucagon 1 mg 01/20/25 18:39 Glucagon Inj 1 Mg Vial IM Q15MIN PRN BG <70, and no IV access Glycerin 1 each 01/24/25 20:53 01/25/25 01:20 Glycerin, Adult 1 Ea Supp [place] 02/23/25 20:52 1 each QDAY PRN Administration CONSTIPATION Heparin Sodium (Porcine) 5,000 unit 01/20/25 21:00 01/27/25 21:50 Heparin Sod Inj 5000 Unit/Ml Vial SC 02/03/25 20:59 5,000 unit BID REYNA Administration Hydromorphone HCl 0.25 mg 01/26/25 09:13 01/27/25 05:25 Hydromorphone Inj 2 Mg/Ml Vial IVP 01/29/25 00:09 0.25 mg Q6H PRN Administration BREAKTHROUGH PAIN (SEVERE) Albumin Human 25 gm in 100 mls @ 100 mls/hr 01/25/25 15:11 01/27/25 10:28 Albuminar-25 Ivpb IV 01/28/25 15:10 100 mls/hr QDAY REYNA Administration Ceftriaxone Sodium/Dextrose 1 gm in 50 mls @ 100 mls/hr 01/25/25 15:30 01/27/25 10:28 Rocephin/D5w 1gm Iv Premix IV 02/01/25 15:29 100 mls/hr QDAY REYNA Administration Insulin Human Lispro 0 unit 01/20/25 21:00 01/28/25 07:30 Insulin Lispro (Admelog) 1 Unit/0.01 Ml Unit SC 02/19/25 20:59 Not Given ACHS [facility] Protocol Lactulose 200 gm 01/27/25 12:45 01/27/25 17:57 Lactulose Syrup 20 Gm/30 Ml Udc [place] 02/26/25 12:44 200 gm QDAY REYNA Administration Levothyroxine Sodium 112 mcg 01/21/25 06:00 01/28/25 05:58 Levothyroxine Sodium 112 Mcg Tablet PO 02/20/25 05:59 Not Given ACBR REYNA Lidocaine 1 patch 01/21/25 10:22 Lidocaine 5% 1 Patch TOP 02/20/25 10:21 UD PRN Back pain Protocol Liothyronine Sodium 10 mcg 01/25/25 14:15 01/27/25 10:51 Liothyronine Sod 5 Mcg Tablet PO 02/24/25 14:14 10 mcg QDAY REYNA Administration Loratadine 10 mg 01/21/25 09:00 01/27/25 10:34 Loratadine 10 Mg Tablet PO 02/20/25 08:59 10 mg QDAY REYNA Administration Metoprolol Succinate 50 mg 01/21/25 09:00 Metoprolol Succinate Xl 25 Mg Tabcr PO 02/20/25 08:59 QDAY REYNA Midodrine 15 mg 01/24/25 22:00 01/28/25 05:56 Midodrine 5 Mg Tablet PO 02/23/25 21:59 Not Given TID REYNA Ondansetron HCl 4 mg 01/20/25 16:47 01/26/25 06:14 Ondansetron Inj 2 Mg/Ml Inj 2 Ml IVP 02/19/25 16:46 4 mg Q6H PRN Administration NAUSEA OR VOMITING Protocol Pantoprazole Sodium 40 mg 01/28/25 09:00 Pantoprazole 40 Mg Tablet PO 02/27/25 08:59 BID REYNA Pregabalin 150 mg 01/20/25 21:00 01/27/25 21:50 Pregabalin 75 Mg Capsule PO 02/19/25 20:59 150 mg BID REYNA Administration Rifaximin 550 mg 01/25/25 21:00 01/27/25 21:50 Rifaximin 550 Mg Tablet PO 02/01/25 20:59 550 mg BID REYNA Administration Simethicone 80 mg 01/26/25 08:38 Simethicone 80 Mg Chew PO 02/25/25 08:37 QID PRN GAS Zolpidem Tartrate 5 mg 01/25/25 21:00 01/27/25 21:50 Zolpidem 5 Mg Tablet PO 02/23/25 20:59 5 mg HS REYNA Administration Plan Assessment: 64 year-old female with PMHx of alcoholic liver cirrhosis, COPD on home O2, hypothyroidism, asthma, HTN, T2DM and anxiety who presented to the ED with worsening ascites and abdominal discomfort. Admitted under observation for therapeutic/diagnostic paracentesis. Acute encephalopathy?improving New onset fever, hypotension, low O2 saturations, tachycardia ?Constipation ?Hepatic encephalopathy Low suspicion of stroke as no focal neurological findings. Patient did have paracentesis which removed 8.4 L on 01/21/2025. Blood pressure had been soft since. Patient has been getting IV albumin. Patient has a bilateral tremor of the arms which is new in onset since >3days ago, patient is known to have tremors of the hands. Patient has had no alcohol since last year KUB showed large stool in rectosigmoid, few air distended small bowel loop EEG: diffuse slowing c/w hepatic encephalopathy ? Neurology following, see recommendations ? Cardiology following, see recommendations ? Pip-tazo 3.375 IV every 8 hours ? Midodrine to 15 mg 3 times daily ? Escitalopram 20 mg daily home dose ? Holding metoclopramide ? Encourage BM movement Constipation?improving Abdominal distention? improving Patient has not had a bowel movement in a few days KUB showed large stool in rectosigmoid, few air distended small bowel loop CT abdomen pelvis 01/26/25 Cirrhosis with moderate ascites Significant splenomegaly Esophageal and perigastric varices Suspicious for ischemic right colon Small bowel obstruction pattern Recommend surgical consultation Ammonia level 44 today. Likely secondary to constipation ? Dr Bradley consulted (general surgery) signed off as ischemic bowel is unlikely given BMs ? Lactulose changed to 30 g per rectum 3 times daily Acute kidney injury Prerenal ?Hepatorenal syndrome Likely secondary to constipation Creatinine 1.4 , improving after BMs Baseline Cr 0.9 ? Holding diuretics ? Monitor renal panel ? Renally dose meds, avoid overdiuresis and NEPHROTOXINS Decompensated alcoholic liver cirrhosis Intractable ascites Advanced portal hypertension Esophageal varices ?Hepatic encephalopathy ? Subacute bacterial peritonitis Significant alcohol use history, cirrhosis diagnosed in 08/2023. Has been on SPIRONOLACTONE, presenting with 1 month of worsening abdominal ascites. Abdominal CT showed cirrhosis, significant ascites, prominent splenomegaly, anasarca, esophageal and perigastric varices, no bowel obstruction. Ultrasound gallbladder showed distended gallbladder, negative for cholelithiasis, mildly thickened gallbladder wall likely from ascites. Anasarca on exam, with 2+ bilateral extremity edema extending above the knee. MELD score 9 equates to 6% mortality in 3 months. Child-Wilhelm score 7, Class B, indication for transplant evaluation. Paracentesis removed 8.4 L fluids, ALBUMIN was given pre and post para. Paracentesis analysis: WBC 202, peritoneal RBC 1000, total protein 4, albumin 2.2, LD H108, glucose 137, amylase 29 SAAG < 1.1 g/dL Portal hypertension is not necessarily the cause of ascites Ultrasound guided paracentesis 01/27/2025 Abdominal sonographic images demonstrate sufficient ascitic fluid for paracentesis. After placing the Yueh catheter, 4550 cc of fluid were successfully removed. During and after completion of the procedure the patient appear in satisfactory and stable condition with no complications observed. Abdominal ultrasound 01/28/2025 Shows minimal ascites MELD-Na Score (01/28/2025) 12 points, <2% mortality estimated 90 day mortality ?Dr. Nagy to perform EGD with possible biopsy, possible therapeutic intervention for prophylactic band ligation of esophageal varices ? HOLDING LASIX 20 BID for lower extremity edema. ? Ceftriaxone 1 g every 24 hours for hepatic encephalopathy ? Rifaximin 550 mg p.o. twice daily for hepatic encephalopathy ? SPIRONOLACTONE 25 mg BID ? Fluid restriction ? Sodium restriction of 2 g/day Hypothyroidism TSH 2.33 Free T4 1.15 Thyroxine T3 48.2 Free T3 0.8 Patient was taking liothyronine 20 mcg daily but was not started in hospital - Liothyronine 10 mcg daily started today, half of patient's home dose, under Dr. Jarvis's (endocrinology) recommendation ? Levothyroxine 112 mcg daily Microcytic anemia (stable) Grade 1 esophageal varices Mild thrombocytopenia (resolved) Hgb 8.9, baseline 11.4. Likely iron deficiency versus cirrhosis. CT showed esophageal and perigastric varices. Reports chronic, recurrent hemorrhoidal bleed, but denies dark stool or upper GI bleed. Had an EGD last year and was abnormal. She is on a 5-year colonoscopy scheduled for colonic polyps, last colonoscopy 5 years ago. B12 and folate WNL. Iron stores are low. EGD showed grade 1 lower third esophageal varices, moderate patchy hemorrhagic characteristic of the gastric antrum. GI recommended outpatient colonoscopy. Hemoglobin stable. ? Transfuse if Hgb less than 8 ? Will need PROPRANOLOL for variceal prophylaxis, if BP can tolerate ? Continue daily oral iron supplements HTN Asymptomatic sinus bradycardia Currently BP soft, normocardic. EKG shows sinus bradycardia, likely cirrhosis related on oral dysfunction versus BETA-BLOCKERS. ? Continue home LEVOTHYROXINE 112 mcg AC BR ? Consider resume home METOPROLOL when able ? Continue MIDODRINE 10 mg TID COPD, asthma Chronic respiratory failure, on home 2 L O2 No signs of asthma or COPD exacerbation ? DuoNebs q.6h. PRN ? Will discharge on TRELEGY T2DM A1c 7.7 from 08/2024. ? INSULIN sliding scale ? Accu-Cheks Elevated lipase Lipase 74, no nausea or vomiting, no epigastric pain subjectively on exam. No radiographic findings of acute pancreatitis. ? Continue to monitor Electrolyte abnormalities ? Daily labs, replete as needed Anxiety ? Continue home LYRICA Health maintenance Diet: Renal diet GI prophylaxis: PROTONIX DVT prophylaxis: SCDs Antibiotics: Ceftriaxone and rifaximin CODE STATUS: Full code Disposition: Admitted under observation for paracentesis Case discussed with my attending Dr. Jackman and senior resident Dr. Malika Kidd MD PGY-1 Attending Provider Attestation/Addendum Patient seen and examined. She is alert awake follows commands. Her abdomen is distended. She had reported fever per her daughter at bedside. Discussed with housestaff. Patient needs to be referred to watch caser as discussed previously.
--- NOTE | 2025-01-28 09:28 | PCS.ST ---
Swallow eval completed. Rec D2 diet for now. Advance diet as pts BERNARDA improves.
[2025-01-28] MEDS: cefTRIAXone/D5w 1gm IV premix 1 GM/50 ML BAG IV (10:09)
[2025-01-28] MEDS: ALBUMIN HUMAN 25% IVPB 25 GM/100 ML BTL IV (10:09)
[2025-01-28] MEDS: HEPARIN SOD INJ 5000 UNIT/ML VIAL SC ×2 (10:10→21:36)
[2025-01-28] MEDS: PREGABALIN 75 MG CAPSULE 150 MG PO ×2 (10:10→21:35)
[2025-01-28] MEDS: ESCITALOPRAM OXALATE 10 MG TABLET 20 MG PO (10:11)
[2025-01-28] MEDS: DOCUSATE SOD 100 MG CAPSULE 200 MG PO (10:11)
[2025-01-28] MEDS: PANTOPRAZOLE 40 MG TABLET PO ×2 (10:13→21:36)
[2025-01-28] MEDS: LIOTHYRONINE SOD 5 mCg TABLET 10 MCG PO (10:14)
--- NOTE | 2025-01-28 10:38 | XR_ITS ---
Examination: Abdomen sonogram, Limited Date and time of exam: January 28, 2025 1220 hours INDICATIONS: Cirrhosis, increasing abdominal distention this week Technique: Real-time haskins scale transabdominal sonographic images of the upper abdomen obtained. Findings: Minimal ascites IMPRESSION: Minimal ascites
--- NOTE | 2025-01-28 11:05 | PC.CC ---
Addendum entered by Franki Cook RN 01/28/25 16:20: followed up w/ Dr. Valdez during 1400 rounds, he stated the team is still discussing POC. Transfer request remains on hold. Original Note: 0812: spoke to Dr. Daly to discuss transfer status. Updated him on the discussion between Dr. Montana and Dr. Montenegro w/ [facility]. He stated he saw a note by Dr Montana that patient does not need HLOC transfer. I informed him that Dr. Montenegro declined the patient as he determined there wasn't a HLOC need. Dr. Daly stated he will discuss with his attending to determine to move forward with transfer request. At this time, transfer is on hold.
[2025-01-28] MEDS: ALBUTEROL/IPRATROPIUM (Duoneb) RT SOL 3 ML NEBU INH (11:15)
[2025-01-28] MEDS: ACETAMINOPHEN 325 MG TABLET 650 MG PO (11:30)
--- NOTE | 2025-01-28 11:50 | PD.SURPROG ---
Documentation for date of: 01/28/25 Subjective Subjective Narrative: Patient is seen and examined. She underwent paracentesis yesterday with drainage of 4.5 L. Rectal tube was placed and patient has been having multiple bowel movements Exam Vital Signs Temp Pulse Resp BP Pulse Ox O2 Del Method O2 Flow Rate 97.2 F 107 H 18 109/71 94 L Nasal Cannula 2 01/28/25 08:00 01/28/25 11:15 01/28/25 11:15 01/28/25 08:00 01/28/25 11:15 01/28/25 08:00 01/28/25 11:15 Constitutional Constitutional: no acute distress Routine Abdominal Exam Comments: Abdomen is soft and less distended Assessment & Plan Assessment Additional comments: Paracentesis was performed and patient has been having multiple bowel movements. Unlikely to have ischemic bowel Plan Continue current treatment. No indication for surgical intervention. I will sign off, please call for any questions
[2025-01-28] MEDS: INSULIN LISPRO (AdmeLOG) 1 UNIT/0.01 ML UNIT SC ×2 (11:55→21:36)
--- NOTE | 2025-01-28 13:11 | PD.RESPRO ---
Documentation for date of: 01/28/25 Subjective Subjective Interval history: History of present illness: Maria Elena Mario is a 64 year-old female with PMHx of alcoholic liver cirrhosis, COPD on home O2, hypothyroidism, asthma, HTN, T2DM and anxiety who presented to the ED with worsening abdominal pain and distention. On admission, patient reported worsening LE swelling in EVA LE, worsening over the last few months. She is also reports significant worsening abdominal distention over the last month. Associated with generalized abdominal pain and discomfort, in addition to difficulty laying flat secondary to abdominal distention. Also reports being constipated over the last few weeks. History of liver cirrhosis, diagnosed on recent visit from 08/2023. Previously she had a GI doctor in [place], but currently not following, states she is unsatisfied with this management. She follows up with an [employer] at [facility] and has been awaiting a referral for a GI doctor in [facility]. She is scheduled for paracentesis next . However, she was sent to the ED for paracentesis but there were no available technical maintenance technician in the ED today to perform paracentesis. She has a history of polyposis, follow-up with GI in [place] regularly. She is on a 5-year colonoscopy schedule, last was done 5 years ago and showed polyps. EGD was also done last year which was normal. 01/25/2025 Today patient was seen and examined. Patient stated that she felt a little off, but did not have any new concerns/complaints. Patient stated that she has some abdominal tenderness. Patient denied any fever, chest pain, shortness of breath. Patient consulted to neprhology for DONNA 01/26/2025 No acute overnight events. Patient's blood pressure has been low 90/49 this AM, was given midodrine with improvement of bp. Today patient was seen and examined. Patient is making urine, but states she is not having any bowel movement. Patient states she is still having abdominal pain. Patient denied fever, chest pain, shortness of breath. 01/27/2025 No acute events overnight. Patient's vitals have been examined. Patient was seen and examined with noted mild bilateral wheezes. Patient has been making urine, on indwelling urinary catheter. Patient now has NG tube. Patient is being given lactulose and rifaximin via primary team. Patient continues to have abdominal pain. Patient noted to have very minimal bowel movement today. Patient denies having any new comlaints/concerns. 01/28/2025 Patient had a rapid called earlier in the morning, was found to be confused and pulled out her NG tube, found to be stable. Patient also had another paracentesis with 4.5 L drained. Patient's vitals have been examined. Patient was seen and examined, noted to have bowel movements overnight. Patient has been mildly improving in mental status. Patient has been making urine, on indwelling urinary catheter. Patient now has NG tube. Patient is being given lactulose and rifaximin via primary team. Patient is having less uncontrolled movement, found to have minimal (much improved) asterixis. Patient states abdominal pain is feeling better. Patient denies having any new comlaints/concerns. Exam Vital Signs Temp Pulse Resp BP Pulse Ox O2 Del Method O2 Flow Rate 98.9 F 109 H 26 H 122/56 L 94 L Nasal Cannula 2 01/28/25 12:00 01/28/25 12:00 01/28/25 12:01/28/25 12:00 01/28/25 12:01/28/25 12:01/28/25 12:00 Narrative Exam GENERAL APPEARANCE: no acute distress. HEENT: ?NC, AT. MMM. EOMI, clear conjunctiva. NECK: ?Supple without lymphadenopathy.? No stiffness or restricted ROM. HEART:? Normal rate and regular rhythm, no m/r/g LUNGS:? No wheezes are heard. ABDOMEN: ?Soft, mild tenderness, less distended, bowel sounds heard. BACK: No CVAT, no obvious deformity. EXTREMITIES: ?Without cyanosis, clubbing or edema. NEUROLOGICAL: ?Minimal Asterixis; Grossly nonfocal. Alert and oriented, moving all 4 extremities. Skin: ?Warm and dry without any rash. Objective Labs 01/28/25 05:05 01/28/25 05:05 Labs: Laboratory Results - last 24 hr 01/28/25 05:05 WBC 5.5 RBC 3.64 L Hgb 8.9 L Hct 27.3 L MCV 75 L MCH 24.5 L MCHC 32.6 RDW Std Deviation 41.7 Plt Count 156 Neut % (Auto) 71 Lymph % (Auto) 14 [place] % (Auto) 14 H Eos % (Auto) 1 Baso % (Auto) 1 Neut # (Auto) 3.9 Lymph # (Auto) 0.7 L [place] # (Auto) 0.8 Eos # (Auto) 0.0 Baso # (Auto) 0.0 Immature Gran # (Auto) 0.02 H Absolute Nucleated RBC 0.00 Immature Gran % 0 Nucleated RBC % 0 PT 12.0 INR 1.1 Sodium 138 Potassium 3.5 Chloride 102 Carbon Dioxide 25.6 Anion Gap 10 BUN 39 H Creatinine 1.4 H D Estim Creat Clear Calc 41.3 L eGFR 42 L BUN/Creatinine Ratio 28 H Glucose 154 H Calculated Osmolality 288 Calcium 9.0 Corrected Calcium 9.2 Phosphorus 2.1 L Magnesium 1.8 Total Bilirubin 0.9 AST 22 ALT 11 Alkaline Phosphatase 127 H Ammonia 44 H Total Protein 6.3 Albumin 3.7 Globulin 2.6 Albumin/Globulin Ratio 1.4 ABG Interpretation ABG results: 01/26/25 05:17 VBG pH 7.43 VBG pCO2 37 VBG pO2 59 H VBG Base Excess 0 Quality Measures Quality Measures VTE prophylaxis Advance care planning discussed with:: patient Assessment & Plan Assessment Current Active Medications: Generic Name Dose Route Start Last Admin Trade Name Freq PRN Reason Stop Dose Admin Acetaminophen 650 mg 01/20/25 16:47 01/28/25 11:30 Acetaminophen 325 Mg Tablet PO 02/19/25 16:46 650 mg Q6H PRN Administration PAIN SCALE 1-3 (mild Acetaminophen 650 mg 01/20/25 16:47 01/24/25 19:47 Acetaminophen 325 Mg Tablet PO 02/19/25 16:46 650 mg Q6H PRN Administration Fever >100.4 Hydrocodone Bitart/Acetaminophen 1 tab 01/28/25 10:30 Hydrocodone/Apap 5/325 Tablet PO 02/02/25 10:29 Q4HR PRN Pain 4-7 or breakthrough Albuterol/Ipratropium 3 ml 01/20/25 18:38 01/28/25 11:15 Albuterol/Ipratropium (Duoneb) Rt Lisset 3 Ml Nebu INH 02/19/25 18:37 3 ml Q6HRRT PRN Administration Wheezing Dextrose 25 ml 01/20/25 18:39 Dextrose 50%-Water Inj 50 Ml Syringe IV 02/19/25 18:38 Q15MIN PRN BG 50-70 responsive npo pt Dextrose 50 ml 01/20/25 18:39 Dextrose 50%-Water Inj 50 Ml Syringe IV 02/19/25 18:38 Q15MIN PRN BG <50 OR BG <70 & pt unresponsive Docusate Sodium 200 mg 01/24/25 21:00 01/28/25 10:11 Docusate Sod 100 Mg Capsule PO 02/23/25 20:59 200 mg QDAY REYNA Administration Protocol Escitalopram Oxalate 20 mg 01/24/25 16:30 01/28/25 10:11 Escitalopram Oxalate 10 Mg Tablet PO 02/23/25 16:29 20 mg QDAY REYNA Administration Ferrous Sulfate 325 mg 01/21/25 11:30 01/27/25 10:34 Ferrous Sulf 325 Mg Tablet PO 02/20/25 11:29 325 mg QOD REYNA Administration Fluconazole 200 mg 01/29/25 09:00 Fluconazole 100 Mg Tablet PO 02/05/25 08:59 QDAY REYNA Furosemide 20 mg 01/22/25 18:00 01/24/25 05:38 Furosemide Inj 10 Mg/Ml Vial 2 Ml IVP 02/20/25 17:59 20 mg BIDD REYNA Administration Glucagon 1 mg 01/20/25 18:39 Glucagon Inj 1 Mg Vial IM Q15MIN PRN BG <70, and no IV access Glycerin 1 each 01/24/25 20:53 01/25/25 01:20 Glycerin, Adult 1 Ea Supp MD 02/23/25 20:52 1 each QDAY PRN Administration CONSTIPATION Heparin Sodium (Porcine) 5,000 unit 01/20/25 21:00 01/28/25 10:10 Heparin Sod Inj 5000 Unit/Ml Vial SC 02/03/25 20:59 5,000 unit BID REYNA Administration Albumin Human 25 gm in 100 mls @ 100 mls/hr 01/25/25 15:11 01/28/25 10:09 Albuminar-25 Ivpb IV 01/28/25 15:10 100 mls/hr QDAY REYNA Administration Ceftriaxone Sodium/Dextrose 1 gm in 50 mls @ 100 mls/hr 01/25/25 15:30 01/28/25 10:09 Rocephin/D5w 1gm Iv Premix IV 02/01/25 15:29 100 mls/hr QDAY REYNA Administration Insulin Human Lispro 0 unit 01/20/25 21:00 01/28/25 11:55 Insulin Lispro (Admelog) 1 Unit/0.01 Ml Unit SC 02/19/25 20:59 1 unit ACHS REYNA Administration Protocol Lactulose 200 gm 01/28/25 10:30 01/28/25 10:26 Lactulose Syrup 10 Gm/15 Ml MD 02/27/25 10:29 Not Given QDAY REYNA Levothyroxine Sodium 112 mcg 01/21/25 06:00 01/28/25 05:58 Levothyroxine Sodium 112 Mcg Tablet PO 02/20/25 05:59 Not Given ACBR REYNA Lidocaine 1 patch 01/21/25 10:22 Lidocaine 5% 1 Patch TOP 02/20/25 10:21 UD PRN Back pain Protocol Liothyronine Sodium 10 mcg 01/25/25 14:15 01/28/25 10:14 Liothyronine Sod 5 Mcg Tablet PO 02/24/25 14:14 10 mcg QDAY REYNA Administration Loratadine 10 mg 01/21/25 09:00 01/28/25 10:13 Loratadine 10 Mg Tablet PO 02/20/25 08:59 10 mg QDAY REYNA Administration Metoprolol Succinate 50 mg 01/21/25 09:00 Metoprolol Succinate Xl 25 Mg Tabcr PO 02/20/25 08:59 QDAY REYNA Midodrine 15 mg 01/24/25 22:00 01/28/25 05:56 Midodrine 5 Mg Tablet PO 02/23/25 21:59 Not Given TID REYNA Ondansetron HCl 4 mg 01/20/25 16:47 01/26/25 06:14 Ondansetron Inj 2 Mg/Ml Inj 2 Ml IVP 02/19/25 16:46 4 mg Q6H PRN Administration NAUSEA OR VOMITING Protocol Pantoprazole Sodium 40 mg 01/28/25 09:00 01/28/25 10:13 Pantoprazole 40 Mg Tablet PO 02/27/25 08:59 40 mg BID REYNA Administration Pregabalin 150 mg 01/20/25 21:00 01/28/25 10:10 Pregabalin 75 Mg Capsule PO 02/19/25 20:59 150 mg BID REYNA Administration Rifaximin 550 mg 01/25/25 21:00 01/28/25 10:10 Rifaximin 550 Mg Tablet PO 02/01/25 20:59 550 mg BID REYNA Administration Simethicone 80 mg 01/26/25 08:38 Simethicone 80 Mg Chew PO 02/25/25 08:37 QID PRN GAS Zolpidem Tartrate 5 mg 01/25/25 21:00 01/27/25 21:50 Zolpidem 5 Mg Tablet PO 02/23/25 20:59 5 mg HS REYNA Administration Plan Ms. Mario is a 64 year-old female with PMHx of alcoholic liver cirrhosis, COPD on home O2, hypothyroidism, asthma, HTN, T2DM and anxiety who presented to the ED with worsening ascites and abdominal discomfort. Admitted under observation for therapeutic/diagnostic paracentesis. Nephrology consulted for management of DONNA. # Acute Kidney Injury Patient noted to initially have DONNA with Cr 2.1, currently 1.4 (2.7 previous day; baseline around 1.0). Suspect due abdominal compression or hepatorenal syndrome. Abd US shows minimal ascitic fluid 01/25. Abd/Pelvis CT 01/26 showed moderate ascites. Patient had 4.5 L taken off of paracentesis previous day.Primary team giving lactulose and rifaximin. Currently making urine. Patient is having bowel movements. -will hold fluids and diuretics -trend CMP -renally dose medications #Acute encephalopathy?new onset #New onset fever, hypotension, low O2 saturations, tachycardia #?Presyncope #?Pulmonary embolism #?Seizures #Hyperkalemia, improved Significant ascites Alcoholic liver cirrhosis Microcytic anemia (stable) Grade 1 esophageal varices Mild thrombocytopenia (resolved) HTN Hypothyroidism Asymptomatic sinus bradycardia COPD, asthma Chronic respiratory failure, on home 2 L O2 T2DM Elevated lipase Electrolyte abnormalities Anxiety manage per primary team Thank you for allowing us be apart of the care team for Ms. Mario Patient plan of care was discussed with the attending physician, Dr. Mike Street MD PGY-1 Internal Medicine Attending Provider Attestation/Addendum Patient seen and examined with resident physician Dr. Street. Note reviewed, agree with findings and recommendations with changes made. Patient with longstanding history of liver cirrhosis manifested with ascites, hepatic encephalopathy. Patient's abdomen was significantly distended. Suspected ascites although ultrasound showed minimal ascitic fluid. KUB showed significant bowel distention. Spoke to primary team-insert Melendez, give GoLytely to decompress the abdomen. DONNA-multifactorial(prerenal state from abdominal compression syndrome due to significant abdominal distention versus hepatorenal syndrome type I) Patient making acceptable urine. If no improvement in azotemia-might need renal replacement therapy. Will reeval tomorrow. Today her mental status seems to be better. Although she still has asterixis. 01/27/2025 patient currently seen in telemetry. She is still a bit sleepy. Has NG tube. Still with abdominal distention. Patient was given lactulose. Might benefit from a GoLytely if no bowel movement. Patient had 4.5 l of peritoneal fluid drained. Creatinine 2.7. 01/28/2025 patient currently seen in telemetry. Son at bedside. She pulled out her NG tube. Abdominal distention markedly improved. She had a bowel movement. Also had paracentesis and 4.5 L drained. Good urine output. Blood pressure stable. Hemoglobin 8.9. Creatinine improved to 1.4.
--- NOTE | 2025-01-28 14:29 | PD.RESPRO ---
Documentation for date of: 01/28/25 Subjective Subjective Interval history: Rapid response 01/28 0500: increased level of confusion, pulled out her NG tube. Patient answering questions appropriately but slowly. Having BM with lactulose enema Patient evaluated at bedside. She states that she feels a little bit better today but remains sleepy. No new concerns today Exam Vital Signs Temp Pulse Resp BP Pulse Ox O2 Del Method O2 Flow Rate 98.9 F 109 H 26 H 122/56 L 94 L Nasal Cannula 2 01/28/25 12:01/28/25 12:01/28/25 12:01/28/25 12:01/28/25 12:01/28/25 12:01/28/25 12:00 Narrative Exam General: No acute distress, lying in bed HENT: Normocephalic, atraumatic, hearing intact to conversation at normal volume\ Neck: Supple, non-tender Lungs: Non-labored respirations, symmetric chest rise Heart: Peripheral pulses intact bilaterally Abdomen: Distended Skin: Skin is warm, dry, no rashes or lesions. Psychiatric: Cooperative, appropriate mood and affect Neurologic: Mental status: Orientation: AOx2 Communication: Patient is cooperative and can follow simple instructions, though lethargic Language: Speech fluent, normal rate and volume, comprehension intact Cranial nerves: CN II: Visual suh intact CN III: Pupils equal, round, and reactive to light CN III, IV, : No gaze deviation, no nystagmus Horizontal pursuit: intact Vertical pursuit: intact Ptosis: none CN V: Facial sensation to light touch intact bilaterally at the forehead, cheeks, and jaw line CN VII: Face symmetric, no facial droop appreciated CN VIII: Able to hear and respond to conversation at normal volume, intact to finger rub CN IX, X: Palate elevation symmetric, uvula midline CN XI: Head turn and shoulder shrug strong, symmetric bilaterally CN XII: Normal tongue protrusion without deviation, no fasciculations Motor: No myoclonic jerking observed Muscle strength: b/l UE and LE 3/5 but easily fatigued No pronator drift, no asterixis appreciated Sensory: RUE: Light touch intact LUE: Light touch intact RLE: Light touch intact LLE: Light touch intact Reflexes: Biceps (C5-6): R 2+ L 2+ Brachioradialis (C5-6): R 2+ L 2+ Triceps (C7-8): R 2+ L 2+ Patellae (L3-4): R 2+ L 2+ Achilles (S1-2):R 2+ L 2+ Objective Labs 01/31/25 05:00 01/31/25 05:00 Labs: Laboratory Results - last 24 hr 01/28/25 05:05 WBC 5.5 RBC 3.64 L Hgb 8.9 L Hct 27.3 L MCV 75 L MCH 24.5 L MCHC 32.6 RDW Std Deviation 41.7 Plt Count 156 Neut % (Auto) 71 Lymph % (Auto) 14 [place] % (Auto) 14 H Eos % (Auto) 1 Baso % (Auto) 1 Neut # (Auto) 3.9 Lymph # (Auto) 0.7 L [place] # (Auto) 0.8 Eos # (Auto) 0.0 Baso # (Auto) 0.0 Immature Gran # (Auto) 0.02 H Absolute Nucleated RBC 0.00 Immature Gran % 0 Nucleated RBC % 0 PT 12.0 INR 1.1 Sodium 138 Potassium 3.5 Chloride 102 Carbon Dioxide 25.6 Anion Gap 10 BUN 39 H Creatinine 1.4 H D Estim Creat Clear Calc 41.3 L eGFR 42 L BUN/Creatinine Ratio 28 H Glucose 154 H Calculated Osmolality 288 Calcium 9.0 Corrected Calcium 9.2 Phosphorus 2.1 L Magnesium 1.8 Total Bilirubin 0.9 AST 22 ALT 11 Alkaline Phosphatase 127 H Ammonia 44 H Total Protein 6.3 Albumin 3.7 Globulin 2.6 Albumin/Globulin Ratio 1.4 ABG Interpretation ABG results: 01/26/25 05:17 VBG pH 7.43 VBG pCO2 37 VBG pO2 59 H VBG Base Excess 0 Quality Measures Quality Measures VTE prophylaxis Advance care planning discussed with:: patient and child Assessment & Plan Assessment Current Active Medications: Generic Name Dose Route Start Last Admin Trade Name Freq PRN Reason Stop Dose Admin Acetaminophen 650 mg 01/20/25 16:47 01/28/25 11:30 Acetaminophen 325 Mg Tablet PO 02/19/25 16:46 650 mg Q6H PRN Administration PAIN SCALE 1-3 (mild Acetaminophen 650 mg 01/20/25 16:47 01/24/25 19:47 Acetaminophen 325 Mg Tablet PO 02/19/25 16:46 650 mg Q6H PRN Administration Fever >100.4 Hydrocodone Bitart/Acetaminophen 1 tab 01/28/25 10:30 Hydrocodone/Apap 5/325 Tablet PO 02/02/25 10:29 Q4HR PRN Pain 4-7 or breakthrough Albuterol/Ipratropium 3 ml 01/20/25 18:38 01/28/25 11:15 Albuterol/Ipratropium (Duoneb) Rt Lisset 3 Ml Nebu INH 02/19/25 18:37 3 ml Q6HRRT PRN Administration Wheezing Dextrose 25 ml 01/20/25 18:39 Dextrose 50%-Water Inj 50 Ml Syringe IV 02/19/25 18:38 Q15MIN PRN BG 50-70 responsive npo pt Dextrose 50 ml 01/20/25 18:39 Dextrose 50%-Water Inj 50 Ml Syringe IV 02/19/25 18:38 Q15MIN PRN BG <50 OR BG <70 & pt unresponsive Docusate Sodium 200 mg 01/24/25 21:00 01/28/25 10:11 Docusate Sod 100 Mg Capsule PO 02/23/25 20:59 200 mg QDAY REYNA Administration Protocol Escitalopram Oxalate 20 mg 01/24/25 16:30 01/28/25 10:11 Escitalopram Oxalate 10 Mg Tablet PO 02/23/25 16:29 20 mg QDAY REYNA Administration Ferrous Sulfate 325 mg 01/21/25 11:30 01/27/25 10:34 Ferrous Sulf 325 Mg Tablet PO 02/20/25 11:29 325 mg QOD REYNA Administration Fluconazole 200 mg 01/29/25 09:00 Fluconazole 100 Mg Tablet PO 02/05/25 08:59 QDAY REYNA Furosemide 20 mg 01/22/25 18:00 01/24/25 05:38 Furosemide Inj 10 Mg/Ml Vial 2 Ml IVP 02/20/25 17:59 20 mg BIDD REYNA Administration Glucagon 1 mg 01/20/25 18:39 Glucagon Inj 1 Mg Vial IM Q15MIN PRN BG <70, and no IV access Glycerin 1 each 01/24/25 20:53 01/25/25 01:20 Glycerin, Adult 1 Ea Supp [place] 02/23/25 20:52 1 each QDAY PRN Administration CONSTIPATION Heparin Sodium (Porcine) 5,000 unit 01/20/25 21:00 01/28/25 10:10 Heparin Sod Inj 5000 Unit/Ml Vial SC 02/03/25 20:59 5,000 unit BID REYNA Administration Albumin Human 25 gm in 100 mls @ 100 mls/hr 01/25/25 15:11 01/28/25 10:09 Albuminar-25 Ivpb IV 01/28/25 15:10 100 mls/hr QDAY REYNA Administration Ceftriaxone Sodium/Dextrose 1 gm in 50 mls @ 100 mls/hr 01/25/25 15:30 01/28/25 10:09 Rocephin/D5w 1gm Iv Premix IV 02/01/25 15:29 100 mls/hr QDAY REYNA Administration Insulin Human Lispro 0 unit 01/20/25 21:00 01/28/25 11:55 Insulin Lispro (Admelog) 1 Unit/0.01 Ml Unit SC 02/19/25 20:59 1 unit ACHS REYNA Administration Protocol Lactulose 200 gm 01/28/25 10:30 01/28/25 10:26 Lactulose Syrup 10 Gm/15 Ml [place] 02/27/25 10:29 Not Given QDAY REYNA Levothyroxine Sodium 112 mcg 01/21/25 06:00 01/28/25 05:58 Levothyroxine Sodium 112 Mcg Tablet PO 02/20/25 05:59 Not Given ACBR REYNA Lidocaine 1 patch 01/21/25 10:22 Lidocaine 5% 1 Patch TOP 02/20/25 10:21 UD PRN Back pain Protocol Liothyronine Sodium 10 mcg 01/25/25 14:15 01/28/25 10:14 Liothyronine Sod 5 Mcg Tablet PO 02/24/25 14:14 10 mcg QDAY REYNA Administration Loratadine 10 mg 01/21/25 09:00 01/28/25 10:13 Loratadine 10 Mg Tablet PO 02/20/25 08:59 10 mg QDAY REYNA Administration Metoprolol Succinate 50 mg 01/21/25 09:00 Metoprolol Succinate Xl 25 Mg Tabcr PO 02/20/25 08:59 QDAY REYNA Midodrine 15 mg 01/24/25 22:00 01/28/25 05:56 Midodrine 5 Mg Tablet PO 02/23/25 21:59 Not Given TID REYNA Ondansetron HCl 4 mg 01/20/25 16:47 01/26/25 06:14 Ondansetron Inj 2 Mg/Ml Inj 2 Ml IVP 02/19/25 16:46 4 mg Q6H PRN Administration NAUSEA OR VOMITING Protocol Pantoprazole Sodium 40 mg 01/28/25 09:00 01/28/25 10:13 Pantoprazole 40 Mg Tablet PO 02/27/25 08:59 40 mg BID REYNA Administration Pregabalin 150 mg 01/20/25 21:00 01/28/25 10:10 Pregabalin 75 Mg Capsule PO 02/19/25 20:59 150 mg BID REYNA Administration Rifaximin 550 mg 01/25/25 21:00 01/28/25 10:10 Rifaximin 550 Mg Tablet PO 02/01/25 20:59 550 mg BID REYNA Administration Simethicone 80 mg 01/26/25 08:38 Simethicone 80 Mg Chew PO 02/25/25 08:37 QID PRN GAS Zolpidem Tartrate 5 mg 01/25/25 21:00 01/27/25 21:50 Zolpidem 5 Mg Tablet PO 02/23/25 20:59 5 mg HS REYNA Administration Plan # Bilateral tremors vs myoclonic jerking vs seizure, resolved # Aleterd mental status, improving Patient has had multiple episodes of altered mental status. On 01/22 patient was obtunded with generalized weakness stroke alert was called and symptoms resolved without intervention. NIHSS was [address] head was negative for hemorrhage. Another rapid response was called on 01/24 and 1130 for altered mental status with AO x 0, bilateral tremors concerning for seizures. Vitals reviewed and were WNL. Glucose was WNL. Head CT showed no acute findings. EKG showed sinus tachycardia. Ammonia was <10, troponin was negative. EEG: diffuse slowing c/w hepatic encephalopathy DDX: Hepatic encephalopathy, seizures, electrolyte abnormalities, Wernicke's encephalopathy, DONNA/uremia, hypothyroidism Plan: - Hold metoclopromide - Can hold Primidone if AMS worsens - Continue home Escitalopram - Pending peritoneal fluid cx, blood cx - Management of abnormal electrolytes per primary - Encourage patient to have BM # Constipation, resolved Plan: - Management per primary - Encourage BM #DONNA #Prerenal Likely secondary to hypotension Baseline Cr 0.9 Plan: - Managed per primary # Decompensated alcoholic liver cirrhosis # Grade 1 esophageal varices # Portal hypertension # Hepatorenal syndrome # Intractable ascites Peritoneal fluid removed: 8.7 L --> 4.[address] showed cirrhosis, significant ascites, prominent splenomegaly, anasarca, esophageal and perigastric varices, no bowel obstruction. Ultrasound gallbladder showed distended gallbladder, negative for cholelithiasis, mildly thickened gallbladder wall likely from ascites. Paracentesis analysis: WBC 202, peritoneal RBC 1000, total protein 4, albumin 2.2, LD H108, glucose 137, amylase 29 SAAG < 1.1 g/dL Portal hypertension is not necessarily the cause of ascites. CT a/p w/o: Cirrhosis with moderate ascites, Significant splenomegaly, Esophageal and perigastric varices, Suspicious for ischemic right colon, Small bowel obstruction pattern Plan: - Management per primary # Hyperammonemia Ammonia 44 high on 01/28 Plan: - Management per primary - lactulose, rifaximin # Hypothyroidism TSH 2.33 WNL Free T4 1.15 WNL Thyroxine T4 8.2 WNL Free T3 0.8 Low Home med: Liothyronine 20 mcg daily, levothyroxine 112 mcg daily Plan: - Management per primary - Liothyronine 10 mcg daily, Levothyroxine 112 mcg daily - Pending total T3 # Hypertension # Asymptomatic sinus bradycardia EKG shows sinus bradycardia, likely cirrhosis related on oral dysfunction versus beta blockers Plan: - Management per primary # COPD # Asthma # Chronic respiratory failure, on home 2 L O2 No signs of asthma or COPD exacerbation Plan: - Management per primary # T2DM A1c 7.7 from 08/2024 Plan: - Management per primary # Anxiety Plan: - Management per primary - continue home Pregabalin #DONNA, improving BUN 48, Cr 2.7 BUN/Cr 18 Baseline Cr 1.0 Plan: - Management per primary, nephrology Plan discussed with Dr. Eufemia Bernard, PGY1 Attending Provider Attestation/Addendum Patient was seen and examined at the bedside and I agreed with resident's findings, assessment and plan of care. Patient's mental status has improved significantly to baseline. She is having bowel movements, continue to abdominal distention from ascites. continue with the current management.
--- NOTE | 2025-01-28 15:03 | ESPR_ITS ---
Documentation for date of: 01/28/25 Subjective Subjective Interval history: Pt is seen at bedside, currently saturating 94% on 1L O2 via nasal cannula. Pt appears to be relaxing comfortable, does appear chronically ill. However pt states she is a lot better today . Continues to have mild abdominal tenderness but on physical exam abdomen is soft. Pt also has multiple large bowel movements which has significant impact on feeling better. Pt underwent paracenthesis yesterday and 4.5L of fluid was removed. vitals are otherwise [place] labs are reviewed. Hgb 8.9, Hct 27.3, Bun 39 and creatinine 1.4, GFR 42, phos 2.1 (Pt's kidney function significantly improved) , Ammonia 44 however pt is alert and is able answer questions. does not appear to be altered. Recommendation starting spironolactone 25mg daily, continue to hold lasix, metoprolol and may restart slowly as BP tolerates. Continue IV antibiotics Exam Vital Signs Temp Pulse Resp BP Pulse Ox O2 Del Method O2 Flow Rate 98.9 F 109 H 26 H 120/68 94 L Nasal Cannula 2 01/28/25 12:00 01/28/25 12:00 01/28/25 12:00 01/28/25 14:39 01/28/25 12:00 01/28/25 12:00 01/28/25 12:00 Narrative Exam GENERAL: A&Ox2, chronically ill appearing, Awake, Not in acute distress NEURO: no focal neurological deficits HEENT: Atraumatic, Normocephalic. mucous membranes moist. Eyes open, symmetrical, & clear HEART: Normal Heart Sounds LUNGS: Clear to auscultation with no wheezing or crackles. ABDOMEN: moderatly distended abdomen however it is soft, mild tenderness to palpation EXTREMITIES: no edema noted in LE, no tenderness, able to move all 4 extremities, pedal pulses palpated Objective Labs 01/28/25 05:05 01/28/25 05:05 Labs: Laboratory Results - last 24 hr 01/28/25 05:05 WBC 5.5 RBC 3.64 L Hgb 8.9 L Hct 27.3 L MCV 75 L MCH 24.5 L MCHC 32.6 RDW Std Deviation 41.7 Plt Count 156 Neut % (Auto) 71 Lymph % (Auto) 14 [place] % (Auto) 14 H Eos % (Auto) 1 Baso % (Auto) 1 Neut # (Auto) 3.9 Lymph # (Auto) 0.7 L [place] # (Auto) 0.8 Eos # (Auto) 0.0 Baso # (Auto) 0.0 Immature Gran # (Auto) 0.02 H Absolute Nucleated RBC 0.00 Immature Gran % 0 Nucleated RBC % 0 PT 12.0 INR 1.1 Sodium 138 Potassium 3.5 Chloride 102 Carbon Dioxide 25.6 Anion Gap 10 BUN 39 H Creatinine 1.4 H D Estim Creat Clear Calc 41.3 L eGFR 42 L BUN/Creatinine Ratio 28 H Glucose 154 H Calculated Osmolality 288 Calcium 9.0 Corrected Calcium 9.2 Phosphorus 2.1 L Magnesium 1.8 Total Bilirubin 0.9 AST 22 ALT 11 Alkaline Phosphatase 127 H Ammonia 44 H Total Protein 6.3 Albumin 3.7 Globulin 2.6 Albumin/Globulin Ratio 1.4 ABG Interpretation ABG results: 01/26/25 05:17 VBG pH 7.43 VBG pCO2 37 VBG pO2 59 H VBG Base Excess 0 Quality Measures Quality Measures VTE prophylaxis Advance care planning discussed with:: patient and child Assessment & Plan Assessment Current Active Medications: Generic Name Dose Route Start Last Admin Trade Name Freq PRN Reason Stop Dose Admin Acetaminophen 650 mg 01/20/25 16:47 01/28/25 11:30 Acetaminophen 325 Mg Tablet PO 02/19/25 16:46 650 mg Q6H PRN Administration PAIN SCALE 1-3 (mild Acetaminophen 650 mg 01/20/25 16:47 01/24/25 19:47 Acetaminophen 325 Mg Tablet PO 02/19/25 16:46 650 mg Q6H PRN Administration Fever >100.4 Hydrocodone Bitart/Acetaminophen 1 tab 01/28/25 10:30 Hydrocodone/Apap 5/325 Tablet PO 02/02/25 10:29 Q4HR PRN Pain 4-7 or breakthrough Albuterol/Ipratropium 3 ml 01/20/25 18:38 01/28/25 11:15 Albuterol/Ipratropium (Duoneb) Rt Lisset 3 Ml Nebu INH 02/19/25 18:37 3 ml Q6HRRT PRN Administration Wheezing Dextrose 25 ml 01/20/25 18:39 Dextrose 50%-Water Inj 50 Ml Syringe IV 02/19/25 18:38 Q15MIN PRN BG 50-70 responsive npo pt Dextrose 50 ml 01/20/25 18:39 Dextrose 50%-Water Inj 50 Ml Syringe IV 02/19/25 18:38 Q15MIN PRN BG <50 OR BG <70 & pt unresponsive Docusate Sodium 200 mg 01/24/25 21:00 01/28/25 10:11 Docusate Sod 100 Mg Capsule PO 02/23/25 20:59 200 mg QDAY REYNA Administration Protocol Escitalopram Oxalate 20 mg 01/24/25 16:30 01/28/25 10:11 Escitalopram Oxalate 10 Mg Tablet PO 02/23/25 16:29 20 mg QDAY REYNA Administration Ferrous Sulfate 325 mg 01/21/25 11:30 01/27/25 10:34 Ferrous Sulf 325 Mg Tablet PO 02/20/25 11:29 325 mg QOD REYNA Administration Fluconazole 200 mg 01/29/25 09:00 Fluconazole 100 Mg Tablet PO 02/05/25 08:59 QDAY REYNA Furosemide 20 mg 01/22/25 18:00 01/24/25 05:38 Furosemide Inj 10 Mg/Ml Vial 2 Ml IVP 02/20/25 17:59 20 mg BIDD REYNA Administration Glucagon 1 mg 01/20/25 18:39 Glucagon Inj 1 Mg Vial IM Q15MIN PRN BG <70, and no IV access Glycerin 1 each 01/24/25 20:53 01/25/25 01:20 Glycerin, Adult 1 Ea Supp SD 02/23/25 20:52 1 each QDAY PRN Administration CONSTIPATION Heparin Sodium (Porcine) 5,000 unit 01/20/25 21:00 01/28/25 10:10 Heparin Sod Inj 5000 Unit/Ml Vial SC 02/03/25 20:59 5,000 unit BID REYNA Administration Albumin Human 25 gm in 100 mls @ 100 mls/hr 01/25/25 15:11 01/28/25 10:09 Albuminar-25 Ivpb IV 01/28/25 15:10 100 mls/hr QDAY REYNA Administration Ceftriaxone Sodium/Dextrose 1 gm in 50 mls @ 100 mls/hr 01/25/25 15:30 01/28/25 10:09 Rocephin/D5w 1gm Iv Premix IV 02/01/25 15:29 100 mls/hr QDAY REYNA Administration Insulin Human Lispro 0 unit 01/20/25 21:00 01/28/25 11:55 Insulin Lispro (Admelog) 1 Unit/0.01 Ml Unit SC 02/19/25 20:59 1 unit ACHS REYNA Administration Protocol Lactulose 200 gm 01/28/25 10:30 01/28/25 10:26 Lactulose Syrup 10 Gm/15 Ml SD 02/27/25 10:29 Not Given QDAY REYNA Levothyroxine Sodium 112 mcg 01/21/25 06:00 01/28/25 05:58 Levothyroxine Sodium 112 Mcg Tablet PO 02/20/25 05:59 Not Given ACBR REYNA Lidocaine 1 patch 01/21/25 10:22 Lidocaine 5% 1 Patch TOP 02/20/25 10:21 UD PRN Back pain Protocol Liothyronine Sodium 10 mcg 01/25/25 14:15 01/28/25 10:14 Liothyronine Sod 5 Mcg Tablet PO 02/24/25 14:14 10 mcg QDAY REYNA Administration Loratadine 10 mg 01/21/25 09:00 01/28/25 10:13 Loratadine 10 Mg Tablet PO 02/20/25 08:59 10 mg QDAY REYNA Administration Metoprolol Succinate 50 mg 01/21/25 09:00 Metoprolol Succinate Xl 25 Mg Tabcr PO 02/20/25 08:59 QDAY REYNA Midodrine 15 mg 01/24/25 22:00 01/28/25 14:39 Midodrine 5 Mg Tablet PO 02/23/25 21:59 Not Given TID REYNA Ondansetron HCl 4 mg 01/20/25 16:47 01/26/25 06:14 Ondansetron Inj 2 Mg/Ml Inj 2 Ml IVP 02/19/25 16:46 4 mg Q6H PRN Administration NAUSEA OR VOMITING Protocol Pantoprazole Sodium 40 mg 01/28/25 09:00 01/28/25 10:13 Pantoprazole 40 Mg Tablet PO 02/27/25 08:59 40 mg BID REYNA Administration Pregabalin 150 mg 01/20/25 21:00 01/28/25 10:10 Pregabalin 75 Mg Capsule PO 02/19/25 20:59 150 mg BID REYNA Administration Rifaximin 550 mg 01/25/25 21:00 01/28/25 10:10 Rifaximin 550 Mg Tablet PO 02/01/25 20:59 550 mg BID REYNA Administration Simethicone 80 mg 01/26/25 08:38 Simethicone 80 Mg Chew PO 02/25/25 08:37 QID PRN GAS Zolpidem Tartrate 5 mg 01/25/25 21:00 01/27/25 21:50 Zolpidem 5 Mg Tablet PO 02/23/25 20:59 5 mg HS REYNA Administration Plan Ms. Mario is a 64-year-old female with past medical history significant for decompensated liver cirrhosis (diagnosed in October 2024), COPD on home oxygen, asthma, hypothyroidism, hypertension, type 2 diabetes and anxiety presented to the ED on 01/20/25 complaining of worsening abdominal pain and distention. Cardiology is consulted due to tachycardia and hypotension. #Syncopal episode #Pulmonary arterial hypertension -ruled out #Portal hypertension #Hepatorenal Syndrome #Sinus tachycardia secondary to fevers- resolved #Hypotension -Patient has been in the hospital since 01/20 however since midnight overnight patient has been having sinus tachycardia and fever. Telemetry is reviewed patient is in sinus rhythm. Since patient is a high risk for peritonitis in the setting of end-stage liver disease patient's tachycardia is likely from the fevers indicating possible source of infection. -Low cardiac suspicion for her symptoms right now, patient's hypotension is due to current illness as patient had 8.4 L of fluid removed via paracentesis. EKG: Sinus tachycardia with rate of 120 and QTc 449 Plan: -Continue treating patient's decompensated liver cirrhosis -Continue broad-spectrum IV antibiotics for possible source of infection -Recommended to hold Lasix and Continue to hold metoprolol XL to avoid masking tachycardia in the setting of possible infection -Recommend starting spironolactone for now -Recommend increasing midodrine to 15 mg 3 times daily for hypotension -Recommend albumin with future paracenthesis -Continue low-sodium 2 g diet -Strict ins and outs -Echo showed good cardiac activity with EF >60% and no evidence of PAH #End-stage liver disease #Altered mental status- improved #[id number] type 2 diabetes #Primary hypertension #Hypothyroidism #COPD #Asthma #Anxiety Management as per primary team Assessment and plan discussed with my attending Cookie Padder Dr. Thom Kennedy (PGY-2)- Internal medicine resident
--- NOTE | 2025-01-28 17:46 | PD.IMPROG ---
Documentation for date of: 01/28/25 Subjective Subjective Interval history: Patient evaluated Rapid response this morning because she pulled the NGT and got confused NGT is back in with lactulose and Xifaxan being given Exam Vital Signs Temp Pulse Resp BP Pulse Ox O2 Del Method O2 Flow Rate 98.9 F 109 H 26 H 120/68 94 L Nasal Cannula 2 01/28/25 12:00 01/28/25 12:00 01/28/25 12:00 01/28/25 14:39 01/28/25 12:00 01/28/25 12:00 01/28/25 12:00 Objective Labs 01/28/25 05:05 01/28/25 05:05 Labs: Laboratory Results - last 24 hr 01/28/25 05:05 WBC 5.5 RBC 3.64 L Hgb 8.9 L Hct 27.3 L MCV 75 L MCH 24.5 L MCHC 32.6 RDW Std Deviation 41.7 Plt Count 156 Neut % (Auto) 71 Lymph % (Auto) 14 [place] % (Auto) 14 H Eos % (Auto) 1 Baso % (Auto) 1 Neut # (Auto) 3.9 Lymph # (Auto) 0.7 L [place] # (Auto) 0.8 Eos # (Auto) 0.0 Baso # (Auto) 0.0 Immature Gran # (Auto) 0.02 H Absolute Nucleated RBC 0.00 Immature Gran % 0 Nucleated RBC % 0 PT 12.0 INR 1.1 Sodium 138 Potassium 3.5 Chloride 102 Carbon Dioxide 25.6 Anion Gap 10 BUN 39 H Creatinine 1.4 H D Estim Creat Clear Calc 41.3 L eGFR 42 L BUN/Creatinine Ratio 28 H Glucose 154 H Calculated Osmolality 288 Calcium 9.0 Corrected Calcium 9.2 Phosphorus 2.1 L Magnesium 1.8 Total Bilirubin 0.9 AST 22 ALT 11 Alkaline Phosphatase 127 H Ammonia 44 H Total Protein 6.3 Albumin 3.7 Globulin 2.6 Albumin/Globulin Ratio 1.4 Impressions Impression: Current liver disease secondary to alcohol Advanced portal hypertension with intractable ascites requiring ultrasound-guided paracentesis Continue current management ABG Interpretation ABG results: 01/26/25 05:17 VBG pH 7.43 VBG pCO2 37 VBG pO2 59 H VBG Base Excess 0 Assessment & Plan A&P Narrative # Decompensated alcoholic liver disease with advanced portal hypertension esophageal varices and intractable ascites Plan Agree with the IV Lasix Agree with IV albumin Add spironolactone 25 mg p.o. twice daily Scheduled for therapeutic paracentesis Monitor renal function closely Consent obtained for fiberoptic esophagogastroduodenoscopy with possible biopsy possible therapeutic intervention for prophylactic band ligation of the esophageal varices Agree with IV ceftriaxone for the possibility of subacute bacterial peritonitis Will follow the patient Other medical problems include COPD on home oxygen 2 L nasal cannula Essential hypertension Hypothyroidism Hyperlipidemia Thank you very much for the opportunity to participate in care of this patient Time Spent With Patient Time: Total time spent is greater than 50% in coordination of care (as documented) at patient's floor/unit and/or counseling patient:
[2025-01-28] MEDS: MIDODRINE 5 MG TABLET 15 MG PO ×2 (19:27→21:42)
[2025-01-28] MEDS: HYDROcodone/APAP 5/325 TABLET 1 TAB PO (21:35)
[2025-01-28] MEDS: LACTULOSE SYRUP 20 GM/30 ML UDC 30 GM PR (21:36)
[2025-01-28] MEDS: ZOLPIDEM 5 MG TABLET PO (21:46)
[2025-01-29] VITALS (14 sets, daily range): BP systolic 99–149; BP diastolic 63–78; PULSE 10–120; RESP 13–20; TEMP 36.1–37.1; O2SAT 92–98
[2025-01-29] MEDS: HYDROcodone/APAP 5/325 TABLET 1 TAB PO ×3 (04:03→20:37)
[2025-01-29] MEDS: MIDODRINE 5 MG TABLET 15 MG PO ×2 (05:35→13:29)
[2025-01-29] MEDS: LEVOTHYROXINE SODIUM 112 MCG TABLET PO (05:35)
[2025-01-29 06:23] LABS: Basophils # (Auto) 0.1 Thou/mm3 (0.0-0.2); Basophils % (Auto) 1 % (0-2.5); Eosinophils # (Auto) 0.1 Thou/mm3 (0.0-0.5); Eosinophils % (Auto) 2 % (0-10); Hematocrit 28.0 % (36.0-46.0); Hemoglobin 9.2 g/dL (12.0-16.0); Immature Granulocytes Auto 0.05 Thou/mm3 (0.00-0.00); Lymphocytes # (Auto) 1.1 Thou/mm3 (1.0-4.8); Lymphocytes % (Auto) 18 % (10-50); Mean Corpuscular HGB Conc 32.9 g/dl (31.0-37.0); Mean Corpuscular Hemoglobin 24.4 pg (25.0-35.0); Mean Corpuscular Volume 74 fL (80-100); Monocytes # (Auto) 0.8 Thou/mm3 (0.0-0.8); Monocytes % (Auto) 14 % (0-12); Neutrophils # (Auto) 3.7 Thou/mm3 (1.8-7.7); Neutrophils % (Auto) 64 % (37-80); Nucleated Red Blood Cell # 0.00 Thou/mm3 (0.00-0.00); Nucleated Red Blood Cell % 0 /100 WBC (0); Platelet Count 157 Thou/mm3 (140-440); RDW Standard Deviation 41.3 fL (36.4-46.3); Red Blood Count 3.77 Miln/mm3 (4.00-5.20); White Blood Count 5.9 Thou/mm3 (3.6-11.0)
[2025-01-29 06:41] LABS: INR 1.2 (0.9-1.3); Prothrombin Time 12.9 Seconds (9.0-12.2)
[2025-01-29 07:19] LABS: Alanine Aminotransferase 9 U/L (10-49); Albumin, Serum 3.8 gm/dL (3.4-4.8); Albumin/Globulin Ratio 1.5 (1.2-2.2); Alkaline Phosphatase 135 U/L (46-116); Anion Gap 6 (7-16); Aspartate Amino Transferase 21 U/L (0-34); BUN/Creatinine Ratio 29 Ratio (12-20); Bilirubin,Total 1.1 mg/dL (0.3-1.2); Blood Urea Nitrogen 26 mg/dL (9-23); Calcium 9.3 mg/dL (8.3-10.6); Calcium (Corrected) 9.5 mg/dL (8.5-10.1); Carbon Dioxide 27.2 mMol/L (20.0-31.0); Chloride 103 mMol/L (98-107); Creatinine (Component) 0.9 mg/dL (0.6-1.3); Estimated Creatinine Clearance 64.2 mL/min (>60); Globulin 2.6 gm/dL (2.3-3.5); Glucose 148 mg/dL (74-106); Magnesium 1.7 mg/dL (1.6-2.6); Osmolality,Calculated 279 (275-295); Phosphorous 1.4 mg/dL (2.4-5.1); Potassium 3.4 mMol/L (3.4-5.1); Sodium 136 mMol/L (136-145); Total Protein 6.4 gm/dL (5.7-8.2); eGFR > 60 See Note
--- NOTE | 2025-01-29 07:31 | ESPR_ITS ---
Documentation for date of: 01/29/25 Subjective Subjective Interval history: Patient examined at bedside. She reports that she is feeling better and has had a bowel movement today. She reports no new symptoms. Exam Vital Signs Temp Pulse Resp BP Pulse Ox O2 Del Method O2 Flow Rate 96.9 F 103 H 16 129/65 92 L Nasal Cannula 2 01/29/25 03:57 01/29/25 05:35 01/29/25 03:57 01/29/25 05:35 01/29/25 03:57 01/29/25 03:57 01/29/25 03:57 Narrative Exam General: No acute distress, lying in bed HENT: Normocephalic, atraumatic, hearing intact to conversation at normal volume\ Neck: Supple, non-tender Lungs: Non-labored respirations, symmetric chest rise Heart: Peripheral pulses intact bilaterally Abdomen: Distended Skin: Skin is warm, dry, no rashes or lesions. Psychiatric: Cooperative, appropriate mood and affect Neurologic: Mental status: Orientation: AOx3 Communication: Patient is cooperative and can follow simple instructions, though lethargic Language: Speech fluent, normal rate and volume, comprehension intact Cranial nerves: CN II: Visual suh intact CN III: Pupils equal, round, and reactive to light CN III, IV, : No gaze deviation, no nystagmus Horizontal pursuit: intact Vertical pursuit: intact Ptosis: none CN V: Facial sensation to light touch intact bilaterally at the forehead, cheeks, and jaw line CN VII: Face symmetric, no facial droop appreciated CN VIII: Able to hear and respond to conversation at normal volume, intact to finger rub CN IX, X: Palate elevation symmetric, uvula midline CN XI: Head turn and shoulder shrug strong, symmetric bilaterally CN XII: Normal tongue protrusion without deviation, no fasciculations Motor: No myoclonic jerking observed Muscle strength: b/l UE and LE 3/5 but easily fatigued (improved from previous exam) No pronator drift, no asterixis appreciated Sensory: RUE: Light touch intact LUE: Light touch intact RLE: Light touch intact LLE: Light touch intact Reflexes: Biceps (C5-6): R 2+ L 2+ Brachioradialis (C5-6): R 2+ L 2+ Triceps (C7-8): R 2+ L 2+ Patellae (L3-4): R 2+ L 2+ Achilles (S1-2):R 2+ L 2+ Objective Labs 01/30/25 04:50 01/30/25 04:50 Labs: Laboratory Results - last 24 hr 01/29/25 05:56 WBC 5.9 RBC 3.77 L Hgb 9.2 L Hct 28.0 L MCV 74 L MCH 24.4 L MCHC 32.9 RDW Std Deviation 41.3 Plt Count 157 Neut % (Auto) 64 Lymph % (Auto) 18 [place] % (Auto) 14 H Eos % (Auto) 2 Baso % (Auto) 1 Neut # (Auto) 3.7 Lymph # (Auto) 1.1 [place] # (Auto) 0.8 Eos # (Auto) 0.1 Baso # (Auto) 0.1 Immature Gran # (Auto) 0.05 H Absolute Nucleated RBC 0.00 Immature Gran % 1 H Nucleated RBC % 0 PT 12.9 H INR 1.2 Sodium 136 Potassium 3.4 Chloride 103 Carbon Dioxide 27.2 Anion Gap 6 L BUN 26 H Creatinine 0.9 D Estim Creat Clear Calc 64.2 eGFR > 60 BUN/Creatinine Ratio 29 H Glucose 148 H Calculated Osmolality 279 Calcium 9.3 Corrected Calcium 9.5 Phosphorus 1.4 L Magnesium 1.7 Total Bilirubin 1.1 AST 21 ALT 9 L Alkaline Phosphatase 135 H Total Protein 6.4 Albumin 3.8 Globulin 2.6 Albumin/Globulin Ratio 1.5 ABG Interpretation ABG results: 01/26/25 05:17 VBG pH 7.43 VBG pCO2 37 VBG pO2 59 H VBG Base Excess 0 Quality Measures Quality Measures VTE prophylaxis Advance care planning discussed with:: patient and child Assessment & Plan Assessment Current Active Medications: Generic Name Dose Route Start Last Admin Trade Name Harryq PRN Reason Stop Dose Admin Acetaminophen 650 mg 01/20/25 16:47 01/28/25 11:30 Acetaminophen 325 Mg Tablet PO 02/19/25 16:46 650 mg Q6H PRN Administration PAIN SCALE 1-3 (mild Acetaminophen 650 mg 01/20/25 16:47 01/24/25 19:47 Acetaminophen 325 Mg Tablet PO 02/19/25 16:46 650 mg Q6H PRN Administration Fever >100.4 Hydrocodone Bitart/Acetaminophen 1 tab 01/28/25 10:30 01/29/25 04:03 Hydrocodone/Apap 5/325 Tablet PO 02/02/25 10:29 1 tab Q4HR PRN Administration Pain 4-7 or breakthrough Albuterol/Ipratropium 3 ml 01/20/25 18:38 01/28/25 11:15 Albuterol/Ipratropium (Duoneb) Rt Lisset 3 Ml Nebu INH 02/19/25 18:37 3 ml Q6HRRT PRN Administration Wheezing Ascorbic Acid 250 mg 01/29/25 09:00 Ascorbic Acid 250 Mg Tablet PO 02/28/25 08:59 BID REYNA Dextrose 25 ml 01/20/25 18:39 Dextrose 50%-Water Inj 50 Ml Syringe IV 02/19/25 18:38 Q15MIN PRN BG 50-70 responsive npo pt Dextrose 50 ml 01/20/25 18:39 Dextrose 50%-Water Inj 50 Ml Syringe IV 02/19/25 18:38 Q15MIN PRN BG <50 OR BG <70 & pt unresponsive Docusate Sodium 200 mg 01/24/25 21:00 01/28/25 10:11 Docusate Sod 100 Mg Capsule PO 02/23/25 20:59 200 mg QDAY REYNA Administration Protocol Escitalopram Oxalate 20 mg 01/24/25 16:30 01/28/25 10:11 Escitalopram Oxalate 10 Mg Tablet PO 02/23/25 16:29 20 mg QDAY REYNA Administration Ferrous Sulfate 325 mg 01/21/25 11:30 01/27/25 10:34 Ferrous Sulf 325 Mg Tablet PO 02/20/25 11:29 325 mg QOD REYNA Administration Fluconazole 200 mg 01/29/25 09:00 Fluconazole 100 Mg Tablet PO 02/05/25 08:59 QDAY REYNA Folic Acid 1 mg 01/29/25 09:00 Folic Acid 1 Mg Tablet PO 02/28/25 08:59 QDAY REYNA Furosemide 20 mg 01/22/25 18:00 01/24/25 05:38 Furosemide Inj 10 Mg/Ml Vial 2 Ml IVP 02/20/25 17:59 20 mg BIDD REYNA Administration Glucagon 1 mg 01/20/25 18:39 Glucagon Inj 1 Mg Vial IM Q15MIN PRN BG <70, and no IV access Heparin Sodium (Porcine) 5,000 unit 01/20/25 21:00 01/28/25 21:36 Heparin Sod Inj 5000 Unit/Ml Vial SC 02/03/25 20:59 5,000 unit BID REYNA Administration Ceftriaxone Sodium/Dextrose 1 gm in 50 mls @ 100 mls/hr 01/25/25 15:30 01/28/25 10:09 Rocephin/D5w 1gm Iv Premix IV 02/01/25 15:29 100 mls/hr QDAY REYNA Administration Insulin Human Lispro 0 unit 01/20/25 21:00 01/28/25 21:36 Insulin Lispro (Admelog) 1 Unit/0.01 Ml Unit SC 02/19/25 20:59 1 unit ACHS REYNA Administration Protocol Lactulose 30 gm 01/29/25 06:57 Lactulose Syrup 20 Gm/30 Ml Udc [place] 02/27/25 21:59 TID REYNA Protocol Levothyroxine Sodium 112 mcg 01/21/25 06:00 01/29/25 05:35 Levothyroxine Sodium 112 Mcg Tablet PO 02/20/25 05:59 112 mcg ACBR REYNA Administration Lidocaine 1 patch 01/21/25 10:22 Lidocaine 5% 1 Patch TOP 02/20/25 10:21 UD PRN Back pain Protocol Liothyronine Sodium 10 mcg 01/25/25 14:15 01/28/25 10:14 Liothyronine Sod 5 Mcg Tablet PO 02/24/25 14:14 10 mcg QDAY REYNA Administration Loratadine 10 mg 01/21/25 09:00 01/28/25 10:13 Loratadine 10 Mg Tablet PO 02/20/25 08:59 10 mg QDAY REYNA Administration Metoprolol Succinate 50 mg 01/21/25 09:00 Metoprolol Succinate Xl 25 Mg Tabcr PO 02/20/25 08:59 QDAY REYNA Midodrine 15 mg 01/24/25 22:00 01/29/25 05:35 Midodrine 5 Mg Tablet PO 02/23/25 21:59 15 mg TID REYNA Administration Multivitamins 1 tab 01/29/25 09:00 Multivitamins Tablet PO 02/28/25 08:59 QDAY REYNA Ondansetron HCl 4 mg 01/20/25 16:47 01/26/25 06:14 Ondansetron Inj 2 Mg/Ml Inj 2 Ml IVP 02/19/25 16:46 4 mg Q6H PRN Administration NAUSEA OR VOMITING Protocol Pantoprazole Sodium 40 mg 01/28/25 09:00 01/28/25 21:36 Pantoprazole 40 Mg Tablet PO 02/27/25 08:59 40 mg BID REYNA Administration Pregabalin 150 mg 01/20/25 21:00 01/28/25 21:35 Pregabalin 75 Mg Capsule PO 02/19/25 20:59 150 mg BID REYNA Administration Rifaximin 550 mg 01/25/25 21:00 01/28/25 21:35 Rifaximin 550 Mg Tablet PO 02/01/25 20:59 550 mg BID REYNA Administration Simethicone 80 mg 01/26/25 08:38 Simethicone 80 Mg Chew PO 02/25/25 08:37 QID PRN GAS Thiamine HCl 100 mg 01/29/25 09:00 Thiamine 100 Mg Tablet PO 02/28/25 08:59 QDAY REYNA Zolpidem Tartrate 5 mg 01/25/25 21:00 01/28/25 21:46 Zolpidem 5 Mg Tablet PO 02/23/25 20:59 5 mg HS REYNA Administration Plan # Bilateral tremors vs myoclonic jerking vs seizure, resolved # Aleterd mental status, improving Patient has had multiple episodes of altered mental status. On 01/22 patient was obtunded with generalized weakness stroke alert was called and symptoms resolved without intervention. NIHSS was [address] head was negative for hemorrhage. Another rapid response was called on 01/24 and 1130 for altered mental status with AO x 0, bilateral tremors concerning for seizures. Vitals reviewed and were WNL. Glucose was WNL. Head CT showed no acute findings. EKG showed sinus tachycardia. Ammonia was <10, troponin was negative. EEG: diffuse slowing c/w hepatic encephalopathy DDX: Hepatic encephalopathy, seizures, electrolyte abnormalities, Wernicke's encephalopathy, DONNA/uremia, hypothyroidism Plan: PT - Hold metoclopromide - Can hold Primidone if AMS worsens - Continue home Escitalopram - Management of abnormal electrolytes per primary - Pending vit D panel # Constipation, resolved Plan: - Management per primary - Encourage BM #DONNA #Prerenal Likely secondary to hypotension Baseline Cr 0.9 Plan: - Managed per primary # Decompensated alcoholic liver cirrhosis # Grade 1 esophageal varices # Portal hypertension # Hepatorenal syndrome # Intractable ascites Peritoneal fluid removed: 8.7 L --> 4.[address] showed cirrhosis, significant ascites, prominent splenomegaly, anasarca, esophageal and perigastric varices, no bowel obstruction. Ultrasound gallbladder showed distended gallbladder, negative for cholelithiasis, mildly thickened gallbladder wall likely from ascites. Paracentesis analysis: WBC 202, peritoneal RBC 1000, total protein 4, albumin 2.2, LD H108, glucose 137, amylase 29 SAAG < 1.1 g/dL Portal hypertension is not necessarily the cause of ascites. Blood cx x4 negative. Peritoneal cx negative CT a/p w/o: Cirrhosis with moderate ascites, Significant splenomegaly, Esophageal and perigastric varices, Suspicious for ischemic right colon, Small bowel obstruction pattern Plan: - Management per primary # Hyperammonemia Ammonia 44 high on 01/28 Plan: - Management per primary - lactulose, rifaximin # Hypothyroidism TSH 2.33 WNL Free T4 1.15 WNL Thyroxine T4 8.2 WNL Free T3 0.8 Low Home med: Liothyronine 20 mcg daily, levothyroxine 112 mcg daily Plan: - Management per primary - Liothyronine 10 mcg daily, Levothyroxine 112 mcg daily - Pending total T3 # Hypertension # Asymptomatic sinus bradycardia EKG shows sinus bradycardia, likely cirrhosis related on oral dysfunction versus beta blockers Plan: - Management per primary # COPD # Asthma # Chronic respiratory failure, on home 2 L O2 No signs of asthma or COPD exacerbation Plan: - Management per primary # T2DM A1c 7.7 from 08/2024 Plan: - Management per primary # Anxiety Plan: - Management per primary - continue home Pregabalin #DONNA, improving BUN 48, Cr 2.7 BUN/Cr 18 Baseline Cr 1.0 Plan: - Management per primary, nephrology Plan discussed with Dr. Eufemia Bernard, PGY1 Attending Provider Attestation/Addendum I personally have seen and examined the patient at the bedside and I agree with the resident's findings assessment and plan of care. Patient's mental status is significantly improving, no tremors or abnormal involuntary movements noted today. Continue to monitor her closely.
--- NOTE | 2025-01-29 08:13 | ESPR_ITS ---
<Statement entered by Keith Daly MD - 01/29/25 16:19> In summary: 64-year-old female admitted for decompensated liver cirrhosis. Initially, she had paracentesis with 8.4 L removed. ALBUMIN was started preemptively however her blood pressure dropped after paracentesis. Currently blood pressures stable with MIDODRINE TID and daily ALBUMIN infusions. Around day 2 of admission, she been showing symptoms of hepatic encephalopathy including altered mental status, asterixis, and bilateral myoclonus. Initially we suspected either polypharmacy or withdrawal from ANXIOLYTIC medications that she takes at home. Neurology was consulted and currently managing her anxiolytics. EEG was done showing diffuse slowing, suggestive of hepatic encephalopathy, no signs of seizure activities. Additionally, she was on a large dose of thyroid hormone including LEVOTHYROXINE and liothyronine 20 mEq daily, which is relatively high dose. We had resumed LEVOTHYROXINE 10 mg and recommended endocrinology follow-up for thyroid function management. Hepatic encephalopathy has been waxing and waning. She has been on LACTULOSE since admission, however she continues to have abdominal distention, and unable to pass bowel. KUB showed large amount of stool in the colon. CT abdomen suggested SBO versus right colonic bowel ischemia. She was evaluated by general surgery who does not believe she has bowel ischemia given normal lactic acid, or bowel obstruction given that she has been passing stool although small amount. Today we performed a manual disimpaction with several stool removed, she was able to have a small bowel movement after that. NGT intermittent suction was initiated, however no success of removing stomach content. Currently NG tube is usually used for trickle feeds given that she is unable to tolerate oral intake, and her poor appetite. Additionally, given worsening abdominal distention, we initiated LACTULOSE for rectum, rectal tube was inserted. Continued on LACTULOSE and CEFTRIAXONE was increased to 2 mg daily. Afebrile, no leukocytosis. We've added FLUCONAZOLE as well. She had a an DONNA, likely ATN versus hepatorenal. Kidney function has since normalized. Overall, showing good response with LACTULOSE per rectum, regular bowel movements, mentations appear to be improving. Will likely keep her for 1 to 2 days for observation and physical therapy if she continues to improve. Blood pressure have improved with MIDODRINE, and we were able to resume low-dose CARVEDILOL and SPIRONOLACTONE. Will continue monitoring blood pressure, will add LASIX when able. Case was discussed with attending physician. Keith Daly DO PGY II Documentation for date of: 01/29/25 Subjective Subjective Interval history: Patient seen at bedside. No acute overnight events. Patient is alert and oriented x 3, patient feels better compared to yesterday today. Patient had a bowel movement today, 4 yesterday. Patient feels that the abdomen distention is slightly improved than before. No worsening abdominal pain, no chest pain, no shortness of breath, no nausea, no vomiting. Exam Vital Signs Temp Pulse Resp BP Pulse Ox O2 Del Method O2 Flow Rate 96.9 F 107 H 20 129/65 98 Nasal Cannula 3 01/29/25 03:57 01/29/25 06:27 01/29/25 06:27 01/29/25 05:35 01/29/25 06:27 01/29/25 03:57 01/29/25 06:27 Narrative Exam GENERAL Normal appearing adult female, NAD. HEENT NCAT. GEOVANNI. Oral mucosa is moist. Patent Nares NECK Supple, nontender, no JVD. CHEST RRR, no m/g/r, bilateral inspiratory crackles,no work of breathing, symmetrical expansion. ABDOMEN Soft, moderately distended, mildly tender throughout. No guarding/rebound tenderness/masses. Bowel sounds presents EXTREMITIES No edema/cyanosis. SKIN Warm and dry, no jaundice/rashes. Slightly pale. NEUROMUSCULAR Asterixis bilaterally of upper extremities. Moves all 4 extremities slowly, with full ROM. No focal neurologic deficits. PSYCHIATRY Normal mood and affect, cooperative, no hallucinations Objective Labs 01/29/25 05:56 01/29/25 05:56 Labs: Laboratory Results - last 24 hr 01/29/25 05:56 WBC 5.9 RBC 3.77 L Hgb 9.2 L Hct 28.0 L MCV 74 L MCH 24.4 L MCHC 32.9 RDW Std Deviation 41.3 Plt Count 157 Neut % (Auto) 64 Lymph % (Auto) 18 [place] % (Auto) 14 H Eos % (Auto) 2 Baso % (Auto) 1 Neut # (Auto) 3.7 Lymph # (Auto) 1.1 [place] # (Auto) 0.8 Eos # (Auto) 0.1 Baso # (Auto) 0.1 Immature Gran # (Auto) 0.05 H Absolute Nucleated RBC 0.00 Immature Gran % 1 H Nucleated RBC % 0 PT 12.9 H INR 1.2 Sodium 136 Potassium 3.4 Chloride 103 Carbon Dioxide 27.2 Anion Gap 6 L BUN 26 H Creatinine 0.9 D Estim Creat Clear Calc 64.2 eGFR > 60 BUN/Creatinine Ratio 29 H Glucose 148 H Calculated Osmolality 279 Calcium 9.3 Corrected Calcium 9.5 Phosphorus 1.4 L Magnesium 1.7 Total Bilirubin 1.1 AST 21 ALT 9 L Alkaline Phosphatase 135 H Total Protein 6.4 Albumin 3.8 Globulin 2.6 Albumin/Globulin Ratio 1.5 ABG Interpretation ABG results: 01/26/25 05:17 VBG pH 7.43 VBG pCO2 37 VBG pO2 59 H VBG Base Excess 0 Quality Measures Quality Measures VTE prophylaxis Advance care planning discussed with:: patient Assessment & Plan Assessment Current Active Medications: Generic Name Dose Route Start Last Admin Trade Name Freq PRN Reason Stop Dose Admin Acetaminophen 650 mg 01/20/25 16:47 01/28/25 11:30 Acetaminophen 325 Mg Tablet PO 02/19/25 16:46 650 mg Q6H PRN Administration PAIN SCALE 1-3 (mild Acetaminophen 650 mg 01/20/25 16:47 01/24/25 19:47 Acetaminophen 325 Mg Tablet PO 02/19/25 16:46 650 mg Q6H PRN Administration Fever >100.4 Hydrocodone Bitart/Acetaminophen 1 tab 01/28/25 10:30 01/29/25 04:03 Hydrocodone/Apap 5/325 Tablet PO 02/02/25 10:29 1 tab Q4HR PRN Administration Pain 4-7 or breakthrough Albuterol/Ipratropium 3 ml 01/20/25 18:38 01/28/25 11:15 Albuterol/Ipratropium (Duoneb) Rt Lisset 3 Ml Nebu INH 02/19/25 18:37 3 ml Q6HRRT PRN Administration Wheezing Ascorbic Acid 250 mg 01/29/25 09:00 Ascorbic Acid 250 Mg Tablet PO 02/28/25 08:59 BID REYNA Dextrose 25 ml 01/20/25 18:39 Dextrose 50%-Water Inj 50 Ml Syringe IV 02/19/25 18:38 Q15MIN PRN BG 50-70 responsive npo pt Dextrose 50 ml 01/20/25 18:39 Dextrose 50%-Water Inj 50 Ml Syringe IV 02/19/25 18:38 Q15MIN PRN BG <50 OR BG <70 & pt unresponsive Docusate Sodium 200 mg 01/24/25 21:00 01/28/25 10:11 Docusate Sod 100 Mg Capsule PO 02/23/25 20:59 200 mg QDAY REYNA Administration Protocol Escitalopram Oxalate 20 mg 01/24/25 16:30 01/28/25 10:11 Escitalopram Oxalate 10 Mg Tablet PO 02/23/25 16:29 20 mg QDAY REYNA Administration Ferrous Sulfate 325 mg 01/21/25 11:30 01/27/25 10:34 Ferrous Sulf 325 Mg Tablet PO 02/20/25 11:29 325 mg QOD REYNA Administration Fluconazole 200 mg 01/29/25 09:00 Fluconazole 100 Mg Tablet PO 02/05/25 08:59 QDAY REYNA Folic Acid 1 mg 01/29/25 09:00 Folic Acid 1 Mg Tablet PO 02/28/25 08:59 QDAY REYNA Furosemide 20 mg 01/22/25 18:00 01/24/25 05:38 Furosemide Inj 10 Mg/Ml Vial 2 Ml IVP 02/20/25 17:59 20 mg BIDD REYNA Administration Glucagon 1 mg 01/20/25 18:39 Glucagon Inj 1 Mg Vial IM Q15MIN PRN BG <70, and no IV access Heparin Sodium (Porcine) 5,000 unit 01/20/25 21:00 01/28/25 21:36 Heparin Sod Inj 5000 Unit/Ml Vial SC 02/03/25 20:59 5,000 unit BID REYNA Administration Ceftriaxone Sodium/Dextrose 1 gm in 50 mls @ 100 mls/hr 01/25/25 15:30 01/28/25 10:09 Rocephin/D5w 1gm Iv Premix IV 02/01/25 15:29 100 mls/hr QDAY REYNA Administration Potassium Phosphate 22.5 mmol/ 507.5 mls @ 82.778 mls/hr 01/29/25 07:44 Sodium Chloride IV 01/29/25 13:51 X1 ONE Magnesium Sulfate 2 gm in 50 mls @ 25 mls/hr 01/29/25 07:45 Magnesium Sulfate Ivpb IV 01/29/25 09:44 X1 ONE Insulin Human Lispro 0 unit 01/20/25 21:00 01/29/25 07:46 Insulin Lispro (Admelog) 1 Unit/0.01 Ml Unit SC 02/19/25 20:59 Not Given ACHS REYNA Protocol Lactulose 30 gm 01/29/25 06:57 Lactulose Syrup 20 Gm/30 Ml Udc GA 02/27/25 21:59 TID REYNA Protocol Levothyroxine Sodium 112 mcg 01/21/25 06:00 01/29/25 05:35 Levothyroxine Sodium 112 Mcg Tablet PO 02/20/25 05:59 112 mcg ACBR REYNA Administration Lidocaine 1 patch 01/21/25 10:22 Lidocaine 5% 1 Patch TOP 02/20/25 10:21 UD PRN Back pain Protocol Liothyronine Sodium 10 mcg 01/25/25 14:15 01/28/25 10:14 Liothyronine Sod 5 Mcg Tablet PO 02/24/25 14:14 10 mcg QDAY REYNA Administration Loratadine 10 mg 01/21/25 09:00 01/28/25 10:13 Loratadine 10 Mg Tablet PO 02/20/25 08:59 10 mg QDAY REYNA Administration Metoprolol Succinate 50 mg 01/21/25 09:00 Metoprolol Succinate Xl 25 Mg Tabcr PO 02/20/25 08:59 QDAY REYNA Midodrine 15 mg 01/24/25 22:00 01/29/25 05:35 Midodrine 5 Mg Tablet PO 02/23/25 21:59 15 mg TID REYNA Administration Multivitamins 1 tab 01/29/25 09:00 Multivitamins Tablet PO 02/28/25 08:59 QDAY REYNA Ondansetron HCl 4 mg 01/20/25 16:47 01/26/25 06:14 Ondansetron Inj 2 Mg/Ml Inj 2 Ml IVP 02/19/25 16:46 4 mg Q6H PRN Administration NAUSEA OR VOMITING Protocol Pantoprazole Sodium 40 mg 01/28/25 09:00 01/28/25 21:36 Pantoprazole 40 Mg Tablet PO 02/27/25 08:59 40 mg BID REYNA Administration Pregabalin 150 mg 01/20/25 21:00 01/28/25 21:35 Pregabalin 75 Mg Capsule PO 02/19/25 20:59 150 mg BID REYNA Administration Rifaximin 550 mg 01/25/25 21:00 01/28/25 21:35 Rifaximin 550 Mg Tablet PO 02/01/25 20:59 550 mg BID REYNA Administration Simethicone 80 mg 01/26/25 08:38 Simethicone 80 Mg Chew PO 02/25/25 08:37 QID PRN GAS Thiamine HCl 100 mg 01/29/25 09:00 Thiamine 100 Mg Tablet PO 02/28/25 08:59 QDAY REYNA Zolpidem Tartrate 5 mg 01/25/25 21:00 01/28/25 21:46 Zolpidem 5 Mg Tablet PO 02/23/25 20:59 5 mg HS REYNA Administration Plan Assessment: 64 year-old female with PMHx of alcoholic liver cirrhosis, COPD on home O2, hypothyroidism, asthma, HTN, T2DM and anxiety who presented to the ED with worsening ascites and abdominal discomfort. Admitted under observation for therapeutic/diagnostic paracentesis. Decompensated alcoholic liver cirrhosis Intractable ascites Advanced portal hypertension Esophageal varices ?Hepatic encephalopathy ? Subacute bacterial peritonitis Significant alcohol use history, cirrhosis diagnosed in 08/2023. Has been on SPIRONOLACTONE, presenting with 1 month of worsening abdominal ascites. Abdominal CT showed cirrhosis, significant ascites, prominent splenomegaly, anasarca, esophageal and perigastric varices, no bowel obstruction. Ultrasound gallbladder showed distended gallbladder, negative for cholelithiasis, mildly thickened gallbladder wall likely from ascites. Anasarca on exam, with 2+ bilateral extremity edema extending above the knee. MELD score 9 equates to 6% mortality in 3 months. Child-Wilhelm score 7, Class B, indication for transplant evaluation. Paracentesis removed 8.4 L fluids, ALBUMIN was given pre and post para. Paracentesis analysis: WBC 202, peritoneal RBC 1000, total protein 4, albumin 2.2, LD H108, glucose 137, amylase 29 SAAG < 1.1 g/dL Portal hypertension is not necessarily the cause of ascites Ultrasound guided paracentesis removed 4550 cc of fluid Abdominal ultrasound 01/28/2025 showed minimal ascites MELD-Na Score (01/28/2025) 12 points, <2% mortality estimated 90 day mortality ?Dr. Nagy to perform EGD with possible biopsy, possible therapeutic intervention for prophylactic band ligation of esophageal varices ? HOLDING LASIX 20 BID for lower extremity edema. ? Ceftriaxone 1 g every 24 hours for hepatic encephalopathy ? Rifaximin 550 mg p.o. twice daily for hepatic encephalopathy ? SPIRONOLACTONE 25 mg BID ? Fluid restriction ? Sodium restriction of 2 g/day Acute encephalopathy?improving New onset fever, hypotension, low O2 saturations, tachycardia Hepatic encephalopathy Low suspicion of stroke as no focal neurological findings. Patient did have paracentesis which removed 8.4 L on 01/21/2025. Blood pressure had been soft since. Patient has been getting IV albumin. Patient has a bilateral tremor of the arms which is new in onset since >3days ago, patient is known to have tremors of the hands. Patient has had no alcohol since last year KUB showed large stool in rectosigmoid, few air distended small bowel loop EEG: diffuse slowing c/w hepatic encephalopathy ? Neurology following, see recommendations ? Cardiology following, see recommendations ? Pip-tazo 3.375 IV every 8 hours ? Midodrine to 15 mg 3 times daily ? Escitalopram 20 mg daily home dose ? Holding metoclopramide ? Encourage continued BM movements Constipation?improving Abdominal distention? improving Patient has not had a bowel movement in a few days KUB showed large stool in rectosigmoid, few air distended small bowel loop CT abdomen pelvis 01/26/25 Cirrhosis with moderate ascites Significant splenomegaly Esophageal and perigastric varices Suspicious for ischemic right colon Small bowel obstruction pattern Recommend surgical consultation Latest ammonia level 44. Likely secondary to constipation ? Dr Bradley consulted (general surgery) signed off as ischemic bowel is unlikely given BMs ? Lactulose changed to 200g qday Acute kidney injury - resolved Prerenal 2/2 to hypotention ?Hepatorenal syndrome Likely secondary to constipation Creatinine 1.4 , improving after BMs Baseline Cr 0.9 ? Holding diuretics ? Monitor renal panel ? Renally dose meds, avoid overdiuresis and NEPHROTOXINS Hypothyroidism TSH 2.33 Free T4 1.15 Thyroxine T3 48.2 Free T3 0.8 Patient was taking liothyronine 20 mcg daily but was not started in hospital - Liothyronine 10 mcg daily started today, half of patient's home dose, under Dr. Jarvis's (endocrinology) recommendation ? Levothyroxine 112 mcg daily Microcytic anemia (stable) Grade 1 esophageal varices Mild thrombocytopenia (resolved) Hgb 8.9, baseline 11.4. Likely iron deficiency versus cirrhosis. CT showed esophageal and perigastric varices. Reports chronic, recurrent hemorrhoidal bleed, but denies dark stool or upper GI bleed. Had an EGD last year and was abnormal. She is on a 5-year colonoscopy scheduled for colonic polyps, last colonoscopy 5 years ago. B12 and folate WNL. Iron stores are low. EGD showed grade 1 lower third esophageal varices, moderate patchy hemorrhagic characteristic of the gastric antrum. GI recommended outpatient colonoscopy. Hemoglobin stable. ? Transfuse if Hgb less than 8 ? Will need PROPRANOLOL for variceal prophylaxis, if BP can tolerate ? Continue daily oral iron supplements HTN Asymptomatic sinus bradycardia Currently BP soft, normocardic. EKG shows sinus bradycardia, likely cirrhosis related on oral dysfunction versus BETA-BLOCKERS. ? Continue home LEVOTHYROXINE 112 mcg AC BR ? Consider resume home METOPROLOL when able ? Continue MIDODRINE 10 mg TID COPD, asthma Chronic respiratory failure, on home 2 L O2 No signs of asthma or COPD exacerbation ? DuoNebs q.6h. PRN ? Will discharge on TRELEGY T2DM A1c 7.7 from 08/2024. ? INSULIN sliding scale ? Accu-Cheks Elevated lipase Lipase 74, no nausea or vomiting, no epigastric pain subjectively on exam. No radiographic findings of acute pancreatitis. ? Continue to monitor Electrolyte abnormalities ? Daily labs, replete as needed Anxiety ? Continue home LYRICA Health maintenance Diet: Renal diet GI prophylaxis: PROTONIX DVT prophylaxis: SCDs Antibiotics: Ceftriaxone and rifaximin CODE STATUS: Full code Disposition: Admitted under observation for paracentesis Case discussed with my attending Dr. Sim and senior resident Dr. Malika Kidd MD PGY-1 Attending Provider Attestation/Addendum I attest that I was physically present for the evaluation, physical examination, lab and imaging review of the patient with the residents. I discussed the case with the residents and agree with the findings and plans of care as documented above. At bedside today, patient is states she is feeling better and denies any new complaints. She is more alert and awake, able to answer questions and follow commands appropriately. Kidney function continues to improve, BUN/creatinine of 26/0.9 today. Noted to have low phosphate and potassium, repleted accordingly. Patient is currently on room air, saturating well. She had multiple bowel movements, had another 1 this morning. We will continue with lactulose with target of more than 4 bowel movements in a day. Since patient shows continuous improvement, we will cancel the transfer process. Started on Coreg and spironolactone midodrine, we will add diuretics if blood pressures allows starting tomorrow. Abdomen noted to be mildly distended, but abdominal ultrasound only shows minimal ascitic fluid. We will continue to monitor closely. Salvador Sim MD
[2025-01-29] MEDS: THIAMINE 100 MG TABLET PO (08:45)
[2025-01-29] MEDS: PREGABALIN 75 MG CAPSULE 150 MG PO ×2 (08:45→20:39)
[2025-01-29] MEDS: MULTIVITAMINS TABLET 1 TAB PO (08:45)
[2025-01-29] MEDS: ESCITALOPRAM OXALATE 10 MG TABLET 20 MG PO (08:45)
[2025-01-29] MEDS: DOCUSATE SOD 100 MG CAPSULE 200 MG PO (08:45)
[2025-01-29] MEDS: ASCORBIC ACID 250 MG TABLET PO ×2 (08:45→20:38)
[2025-01-29] MEDS: PANTOPRAZOLE 40 MG TABLET PO ×2 (08:45→20:38)
[2025-01-29] MEDS: cefTRIAXone/D5w 1gm IV premix 1 GM/50 ML BAG IV (08:46)
[2025-01-29] MEDS: FLUCONAZOLE 100 MG TABLET 200 MG PO (08:46)
[2025-01-29] MEDS: FERROUS SULF 325 MG TABLET PO (08:46)
[2025-01-29] MEDS: FOLIC ACID 1 MG TABLET PO (08:46)
[2025-01-29] MEDS: HEPARIN SOD INJ 5000 UNIT/ML VIAL SC ×2 (08:49→20:39)
--- NOTE | 2025-01-29 08:56 | PD.RESPRO ---
Documentation for date of: 01/29/25 Subjective Subjective Interval history: History of present illness: Maria Elena Mario is a 64 year-old female with PMHx of alcoholic liver cirrhosis, COPD on home O2, hypothyroidism, asthma, HTN, T2DM and anxiety who presented to the ED with worsening abdominal pain and distention. On admission, patient reported worsening LE swelling in EVA LE, worsening over the last few months. She is also reports significant worsening abdominal distention over the last month. Associated with generalized abdominal pain and discomfort, in addition to difficulty laying flat secondary to abdominal distention. Also reports being constipated over the last few weeks. History of liver cirrhosis, diagnosed on recent visit from 08/2023. Previously she had a GI doctor in [place], but currently not following, states she is unsatisfied with this management. She follows up with an BEAN WEIGHER at [facility] and has been awaiting a referral for a GI doctor in [facility]. She is scheduled for paracentesis next . However, she was sent to the ED for paracentesis but there were no available sonography technologist in the ED today to perform paracentesis. She has a history of polyposis, follow-up with GI in [place] regularly. She is on a 5-year colonoscopy schedule, last was done 5 years ago and showed polyps. EGD was also done last year which was normal. 01/25/2025 Today patient was seen and examined. Patient stated that she felt a little off, but did not have any new concerns/complaints. Patient stated that she has some abdominal tenderness. Patient denied any fever, chest pain, shortness of breath. Patient consulted to neprhology for DONNA 01/26/2025 No acute overnight events. Patient's blood pressure has been low 90/49 this AM, was given midodrine with improvement of bp. Today patient was seen and examined. Patient is making urine, but states she is not having any bowel movement. Patient states she is still having abdominal pain. Patient denied fever, chest pain, shortness of breath. 01/27/2025 No acute events overnight. Patient's vitals have been examined. Patient was seen and examined with noted mild bilateral wheezes. Patient has been making urine, on indwelling urinary catheter. Patient now has NG tube. Patient is being given lactulose and rifaximin via primary team. Patient continues to have abdominal pain. Patient noted to have very minimal bowel movement today. Patient denies having any new complaints/concerns. 01/28/2025 Patient had a rapid called earlier in the morning, was found to be confused and pulled out her NG tube, found to be stable. Patient also had another paracentesis with 4.5 L drained. Patient's vitals have been examined. Patient was seen and examined, noted to have bowel movements overnight. Patient has been mildly improving in mental status. Patient has been making urine, on indwelling urinary catheter. Patient now has NG tube. Patient is being given lactulose and rifaximin via primary team. Patient is having less uncontrolled movement, found to have minimal (much improved) asterixis. Patient states abdominal pain is feeling better. Patient denies having any new complaints/concerns. 01/29/2025 No acute events overnight. Patient's vitals have been examined. Patient was noted to have 5 bowel movements overnight/morning. Patient's Cr continues to improve, currently 0.9. Patient was seen and examined with noted mild bilateral wheezes. Patient has been making urine, on indwelling urinary catheter. Patient now has NG tube. Patient states her abdominal pain is feeling better. Patient denies having any new complaints/concerns. Exam Vital Signs Temp Pulse Resp BP Pulse Ox O2 Del Method O2 Flow Rate 97.5 F 99 19 142/66 H 97 Nasal Cannula 2 01/29/25 08:00 01/29/25 08:00 01/29/25 08:00 01/29/25 08:00 01/29/25 08:00 01/29/25 08:00 01/29/25 08:00 Narrative Exam GENERAL APPEARANCE: no acute distress. HEENT: ?NC, AT. MMM. EOMI, clear conjunctiva. NECK: ?Supple without lymphadenopathy.? No stiffness or restricted ROM. HEART:? Normal rate and regular rhythm, no m/r/g LUNGS:? No wheezes are heard. ABDOMEN: ?Soft, mild tenderness, less distended, bowel sounds heard. BACK: No CVAT, no obvious deformity. EXTREMITIES: ?Without cyanosis, clubbing or edema. NEUROLOGICAL: ?Minimal Asterixis; Grossly nonfocal. Alert and oriented, moving all 4 extremities. Skin: ?Warm and dry without any rash. Objective Labs 01/31/25 05:00 01/31/25 05:00 Labs: Laboratory Results - last 24 hr 01/29/25 05:56 WBC 5.9 RBC 3.77 L Hgb 9.2 L Hct 28.0 L MCV 74 L MCH 24.4 L MCHC 32.9 RDW Std Deviation 41.3 Plt Count 157 Neut % (Auto) 64 Lymph % (Auto) 18 [place] % (Auto) 14 H Eos % (Auto) 2 Baso % (Auto) 1 Neut # (Auto) 3.7 Lymph # (Auto) 1.1 [place] # (Auto) 0.8 Eos # (Auto) 0.1 Baso # (Auto) 0.1 Immature Gran # (Auto) 0.05 H Absolute Nucleated RBC 0.00 Immature Gran % 1 H Nucleated RBC % 0 PT 12.9 H INR 1.2 Sodium 136 Potassium 3.4 Chloride 103 Carbon Dioxide 27.2 Anion Gap 6 L BUN 26 H Creatinine 0.9 D Estim Creat Clear Calc 64.2 eGFR > 60 BUN/Creatinine Ratio 29 H Glucose 148 H Calculated Osmolality 279 Calcium 9.3 Corrected Calcium 9.5 Phosphorus 1.4 L Magnesium 1.7 Total Bilirubin 1.1 AST 21 ALT 9 L Alkaline Phosphatase 135 H Total Protein 6.4 Albumin 3.8 Globulin 2.6 Albumin/Globulin Ratio 1.5 ABG Interpretation ABG results: 01/26/25 05:17 VBG pH 7.43 VBG pCO2 37 VBG pO2 59 H VBG Base Excess 0 Quality Measures Quality Measures VTE prophylaxis Advance care planning discussed with:: patient Assessment & Plan Assessment Current Active Medications: Generic Name Dose Route Start Last Admin Trade Name Harryq PRN Reason Stop Dose Admin Acetaminophen 650 mg 01/20/25 16:47 01/28/25 11:30 Acetaminophen 325 Mg Tablet PO 02/19/25 16:46 650 mg Q6H PRN Administration PAIN SCALE 1-3 (mild Acetaminophen 650 mg 01/20/25 16:47 01/24/25 19:47 Acetaminophen 325 Mg Tablet PO 02/19/25 16:46 650 mg Q6H PRN Administration Fever >100.4 Hydrocodone Bitart/Acetaminophen 1 tab 01/28/25 10:30 01/29/25 04:03 Hydrocodone/Apap 5/325 Tablet PO 02/02/25 10:29 1 tab Q4HR PRN Administration Pain 4-7 or breakthrough Albuterol/Ipratropium 3 ml 01/20/25 18:38 01/28/25 11:15 Albuterol/Ipratropium (Duoneb) Rt Lisset 3 Ml Nebu INH 02/19/25 18:37 3 ml Q6HRRT PRN Administration Wheezing Ascorbic Acid 250 mg 01/29/25 09:00 Ascorbic Acid 250 Mg Tablet PO 02/28/25 08:59 BID REYNA Dextrose 25 ml 01/20/25 18:39 Dextrose 50%-Water Inj 50 Ml Syringe IV 02/19/25 18:38 Q15MIN PRN BG 50-70 responsive npo pt Dextrose 50 ml 01/20/25 18:39 Dextrose 50%-Water Inj 50 Ml Syringe IV 02/19/25 18:38 Q15MIN PRN BG <50 OR BG <70 & pt unresponsive Docusate Sodium 200 mg 01/24/25 21:00 01/28/25 10:11 Docusate Sod 100 Mg Capsule PO 02/23/25 20:59 200 mg QDAY REYNA Administration Protocol Escitalopram Oxalate 20 mg 01/24/25 16:30 01/28/25 10:11 Escitalopram Oxalate 10 Mg Tablet PO 02/23/25 16:29 20 mg QDAY REYNA Administration Ferrous Sulfate 325 mg 01/21/25 11:30 01/27/25 10:34 Ferrous Sulf 325 Mg Tablet PO 02/20/25 11:29 325 mg QOD REYNA Administration Fluconazole 200 mg 01/29/25 09:00 Fluconazole 100 Mg Tablet PO 02/05/25 08:59 QDAY REYNA Folic Acid 1 mg 01/29/25 09:00 Folic Acid 1 Mg Tablet PO 02/28/25 08:59 QDAY REYNA Furosemide 20 mg 01/22/25 18:00 01/24/25 05:38 Furosemide Inj 10 Mg/Ml Vial 2 Ml IVP 02/20/25 17:59 20 mg BIDD REYNA Administration Glucagon 1 mg 01/20/25 18:39 Glucagon Inj 1 Mg Vial IM Q15MIN PRN BG <70, and no IV access Heparin Sodium (Porcine) 5,000 unit 01/20/25 21:00 01/28/25 21:36 Heparin Sod Inj 5000 Unit/Ml Vial SC 02/03/25 20:59 5,000 unit BID REYNA Administration Ceftriaxone Sodium/Dextrose 1 gm in 50 mls @ 100 mls/hr 01/25/25 15:30 01/28/25 10:09 Rocephin/D5w 1gm Iv Premix IV 02/01/25 15:29 100 mls/hr QDAY REYNA Administration Potassium Phosphate 22.5 mmol/ 507.5 mls @ 82.778 mls/hr 01/29/25 07:44 Sodium Chloride IV 01/29/25 13:51 X1 ONE Magnesium Sulfate 2 gm in 50 mls @ 25 mls/hr 01/29/25 07:45 Magnesium Sulfate Ivpb IV 01/29/25 09:44 X1 ONE Insulin Human Lispro 0 unit 01/20/25 21:00 01/29/25 07:46 Insulin Lispro (Admelog) 1 Unit/0.01 Ml Unit SC 02/19/25 20:59 Not Given ACHS REYNA Protocol Lactulose 30 gm 01/29/25 06:57 Lactulose Syrup 20 Gm/30 Ml Udc IA 02/27/25 21:59 TID REYNA Protocol Levothyroxine Sodium 112 mcg 01/21/25 06:00 01/29/25 05:35 Levothyroxine Sodium 112 Mcg Tablet PO 02/20/25 05:59 112 mcg ACBR REYNA Administration Lidocaine 1 patch 01/21/25 10:22 Lidocaine 5% 1 Patch TOP 02/20/25 10:21 UD PRN Back pain Protocol Liothyronine Sodium 10 mcg 01/25/25 14:15 01/28/25 10:14 Liothyronine Sod 5 Mcg Tablet PO 02/24/25 14:14 10 mcg QDAY REYNA Administration Loratadine 10 mg 01/21/25 09:00 01/28/25 10:13 Loratadine 10 Mg Tablet PO 02/20/25 08:59 10 mg QDAY REYNA Administration Metoprolol Succinate 50 mg 01/21/25 09:00 Metoprolol Succinate Xl 25 Mg Tabcr PO 02/20/25 08:59 QDAY REYNA Midodrine 15 mg 01/24/25 22:00 01/29/25 05:35 Midodrine 5 Mg Tablet PO 02/23/25 21:59 15 mg TID REYNA Administration Multivitamins 1 tab 01/29/25 09:00 Multivitamins Tablet PO 02/28/25 08:59 QDAY REYNA Ondansetron HCl 4 mg 01/20/25 16:47 01/26/25 06:14 Ondansetron Inj 2 Mg/Ml Inj 2 Ml IVP 02/19/25 16:46 4 mg Q6H PRN Administration NAUSEA OR VOMITING Protocol Pantoprazole Sodium 40 mg 01/28/25 09:00 01/28/25 21:36 Pantoprazole 40 Mg Tablet PO 02/27/25 08:59 40 mg BID REYNA Administration Pregabalin 150 mg 01/20/25 21:00 01/28/25 21:35 Pregabalin 75 Mg Capsule PO 02/19/25 20:59 150 mg BID REYNA Administration Rifaximin 550 mg 01/25/25 21:00 01/28/25 21:35 Rifaximin 550 Mg Tablet PO 02/01/25 20:59 550 mg BID REYNA Administration Simethicone 80 mg 01/26/25 08:38 Simethicone 80 Mg Chew PO 02/25/25 08:37 QID PRN GAS Thiamine HCl 100 mg 01/29/25 09:00 Thiamine 100 Mg Tablet PO 02/28/25 08:59 QDAY REYNA Zolpidem Tartrate 5 mg 01/25/25 21:00 01/28/25 21:46 Zolpidem 5 Mg Tablet PO 02/23/25 20:59 5 mg HS REYNA Administration Plan Ms. Mario is a 64 year-old female with PMHx of alcoholic liver cirrhosis, COPD on home O2, hypothyroidism, asthma, HTN, T2DM and anxiety who presented to the ED with worsening ascites and abdominal discomfort. Admitted under observation for therapeutic/diagnostic paracentesis. Nephrology consulted for management of DONNA. # Acute Kidney Injury Patient noted to initially have DONNA with Cr 2.1, currently 0.9 (1.4 previous day; baseline around 1.0). Suspect due abdominal compression or hepatorenal syndrome. Abd US shows minimal ascitic fluid 01/25. Abd/Pelvis CT 01/26 showed moderate ascites. Patient had 4.5 L taken off of paracentesis earlier this week. Primary team giving lactulose and rifaximin. Currently making urine. Patient is having bowel movements. -Nephrology signing off for now, please consult again if need be. -will hold fluids and diuretics -trend CMP -renally dose medications #Acute encephalopathy?new onset #New onset fever, hypotension, low O2 saturations, tachycardia #?Presyncope #?Pulmonary embolism #?Seizures #Hyperkalemia, improved Significant ascites Alcoholic liver cirrhosis Microcytic anemia (stable) Grade 1 esophageal varices Mild thrombocytopenia (resolved) HTN Hypothyroidism Asymptomatic sinus bradycardia COPD, asthma Chronic respiratory failure, on home 2 L O2 T2DM Elevated lipase Electrolyte abnormalities Anxiety manage per primary team Thank you for allowing us be apart of the care team for Ms. Mario Patient plan of care was discussed with the attending physician, Dr. Mike Street MD PGY-1 Internal Medicine Attending Provider Attestation/Addendum Patient seen and examined with resident physician Dr. Street. Note reviewed, agree with findings and recommendations with changes made. Patient with longstanding history of liver cirrhosis manifested with ascites, hepatic encephalopathy. Patient's abdomen was significantly distended. Suspected ascites although ultrasound showed minimal ascitic fluid. KUB showed significant bowel distention. Spoke to primary team-insert Melendez, give GoLytely to decompress the abdomen. DONNA-multifactorial(prerenal state from abdominal compression syndrome due to significant abdominal distention versus hepatorenal syndrome type I) Patient making acceptable urine. If no improvement in azotemia-might need renal replacement therapy. Will reeval tomorrow. Today her mental status seems to be better. Although she still has asterixis. 01/27/2025 patient currently seen in telemetry. She is still a bit sleepy. Has NG tube. Still with abdominal distention. Patient was given lactulose. Might benefit from a GoLytely if no bowel movement. Patient had 4.5 l of peritoneal fluid drained. Creatinine 2.7. 01/28/2025 patient currently seen in telemetry. Son at bedside. She pulled out her NG tube. Abdominal distention markedly improved. She had a bowel movement. Also had paracentesis and 4.5 L drained. Good urine output. Blood pressure stable. Hemoglobin 8.9. Creatinine improved to 1.4. 01/29/2025 patient currently seen in telemetry. Son came from [place]. She is resting comfortably. Creatinine markedly improved to 1.2. At this point will sign off. Thank you for the consult.
[2025-01-29] MEDS: Magnesium Sulfate 2 GM Ivpb 2 GM/50 ML BAG IV (09:33)
[2025-01-29] MEDS: POTASSIUM PHOS 22.5 MMOL in SODIUM CHLORIDE 0.9% 500 ML 500 ML 82.778 MMOL IV (09:40)
[2025-01-29] MEDS: LIOTHYRONINE SOD 5 mCg TABLET 10 MCG PO (11:24)
[2025-01-29] MEDS: SPIRONOLACTONE 25 MG TABLET PO (12:22)
[2025-01-29] MEDS: INSULIN LISPRO (AdmeLOG) 1 UNIT/0.01 ML UNIT SC ×2 (12:22→20:39)
[2025-01-29] MEDS: FLUCONAZOLE 100 MG TABLET 600 MG PO (13:29)
--- NOTE | 2025-01-29 14:07 | XR_ITS ---
Examination: Abdomen sonogram, Limited Date and time of exam: January 29, 2025 1412 hours INDICATIONS: Abdominal distention today Technique: Real-time haskins scale transabdominal sonographic images of the upper abdomen obtained. Findings: Minimal ascitic fluid IMPRESSION:: Minimal ascitic
--- NOTE | 2025-01-29 14:10 | PC.CC ---
During 1400 meeting, orders received from team C to cancel the transfer request.
--- NOTE | 2025-01-29 14:37 | PC.SS ---
Follow up note: SS met with patient and family at bedside. Transfer is called off. Patient is being monitored. PT eval pending. Patient states she will feel safer discharging to a SNF. Her preference is [facility] and second choice is [facility]. SS will send inquiry through [employer] system. PASRR to be completed. D/c pending once stable. Patient will need prior authorization.
[2025-01-29] MEDS: LACTULOSE SYRUP 10 GM/15 ML 200 GM PR (14:58)
--- NOTE | 2025-01-29 15:05 | PC.PT ---
Patient is safe to stand pivot transfer to a bedside commode with a FWW and 1 staff assist. RN made aware.
--- NOTE | 2025-01-29 18:49 | ESPR_ITS ---
<Statement entered by Erin Tomas MD - 01/31/25 17:48> I personally examined evaluated the patient with the resident physician PGY 2 Dr. Kennedy patient clinically doing well renal function almost back to normal 0.9 creatinine patient started on spironolactone tolerating well also recommend low-dose beta-shaheen as tolerated as well. Clinically she is improving abdominal swelling persists though most of appears to be gas there is some ascites but not significant. No GI bleeding Documentation for date of: 01/29/25 Subjective Subjective Interval history: Pt is seen at bedside, eating food. Family is also at bedside, pt is alert and oriented. states she is feeling great, and endorses to significant improvement in her symptoms. Currently saturating on room air, denies any shortness of breath, palpitations or diziness. Pt has no cardiac complains. Physical therapy is working with the patient to regain strength before discahrge. Pt is have regular bowel movements. On physical examination denies abdominal tenderness, although abdomen is distended it is soft. Vitals and telemetry is reviewed. Pt is in sinus rhythm with HR of 90's. Labs have signicant improvement in BUN 26 and Cr 0.9 and GFR >60. Pt is mildly wheezing, receiving breathing treatments. Pt is started on spironolactone Recommend continue midodrine, and start low dose coreg if BP is able to tolerate and pt may also be started on lasix 40mg daily. Exam Vital Signs Temp Pulse Resp BP Pulse Ox O2 Del Method O2 Flow Rate 98.8 F 108 H 13 139/63 H 95 Nasal Cannula 2 01/29/25 16:00 01/29/25 16:01/29/25 16:01/29/25 16:01/29/25 16:01/29/25 16:01/29/25 16:00 Narrative Exam GENERAL: A&Ox2, chronically ill appearing, Awake, Not in acute distress NEURO: no focal neurological deficits HEENT: Atraumatic, Normocephalic. mucous membranes moist. Eyes open, symmetrical, & clear HEART: Normal Heart Sounds, regular rate and rhythm LUNGS: no crackles, but bilateral wheezing heard. ABDOMEN: moderatly distended abdomen however it is soft, no tenderness to palpation EXTREMITIES: no edema noted in LE, no tenderness, able to move all 4 extremities, pedal pulses palpated Objective Labs 01/29/25 05:56 01/29/25 05:56 Labs: Laboratory Results - last 24 hr 01/29/25 05:56 WBC 5.9 RBC 3.77 L Hgb 9.2 L Hct 28.0 L MCV 74 L MCH 24.4 L MCHC 32.9 RDW Std Deviation 41.3 Plt Count 157 Neut % (Auto) 64 Lymph % (Auto) 18 [place] % (Auto) 14 H Eos % (Auto) 2 Baso % (Auto) 1 Neut # (Auto) 3.7 Lymph # (Auto) 1.1 [place] # (Auto) 0.8 Eos # (Auto) 0.1 Baso # (Auto) 0.1 Immature Gran # (Auto) 0.05 H Absolute Nucleated RBC 0.00 Immature Gran % 1 H Nucleated RBC % 0 PT 12.9 H INR 1.2 Sodium 136 Potassium 3.4 Chloride 103 Carbon Dioxide 27.2 Anion Gap 6 L BUN 26 H Creatinine 0.9 D Estim Creat Clear Calc 64.2 eGFR > 60 BUN/Creatinine Ratio 29 H Glucose 148 H Calculated Osmolality 279 Calcium 9.3 Corrected Calcium 9.5 Phosphorus 1.4 L Magnesium 1.7 Total Bilirubin 1.1 AST 21 ALT 9 L Alkaline Phosphatase 135 H Total Protein 6.4 Albumin 3.8 Globulin 2.6 Albumin/Globulin Ratio 1.5 ABG Interpretation ABG results: 01/26/25 05:17 VBG pH 7.43 VBG pCO2 37 VBG pO2 59 H VBG Base Excess 0 Quality Measures Quality Measures VTE prophylaxis Advance care planning discussed with:: patient and child Assessment & Plan Assessment Current Active Medications: Generic Name Dose Route Start Last Admin Trade Name Liliam PRN Reason Stop Dose Admin Acetaminophen 650 mg 01/20/25 16:47 01/28/25 11:30 Acetaminophen 325 Mg Tablet PO 02/19/25 16:46 650 mg Q6H PRN Administration PAIN SCALE 1-3 (mild Acetaminophen 650 mg 01/20/25 16:47 01/24/25 19:47 Acetaminophen 325 Mg Tablet PO 02/19/25 16:46 650 mg Q6H PRN Administration Fever >100.4 Hydrocodone Bitart/Acetaminophen 1 tab 01/28/25 10:30 01/29/25 14:26 Hydrocodone/Apap 5/325 Tablet PO 02/02/25 10:29 1 tab Q4HR PRN Administration Pain 4-7 or breakthrough Albuterol/Ipratropium 3 ml 01/20/25 18:38 01/28/25 11:15 Albuterol/Ipratropium (Duoneb) Rt Lisset 3 Ml Nebu INH 02/19/25 18:37 3 ml Q6HRRT PRN Administration Wheezing Ascorbic Acid 250 mg 01/29/25 09:00 01/29/25 08:45 Ascorbic Acid 250 Mg Tablet PO 02/28/25 08:59 250 mg BID REYNA Administration Carvedilol 3.125 mg 01/29/25 17:30 Carvedilol 3.125 Mg Tablet PO 02/28/25 17:29 BIDWM REYNA Dextrose 25 ml 01/20/25 18:39 Dextrose 50%-Water Inj 50 Ml Syringe IV 02/19/25 18:38 Q15MIN PRN BG 50-70 responsive npo pt Dextrose 50 ml 01/20/25 18:39 Dextrose 50%-Water Inj 50 Ml Syringe IV 02/19/25 18:38 Q15MIN PRN BG <50 OR BG <70 & pt unresponsive Docusate Sodium 200 mg 01/24/25 21:00 01/29/25 08:45 Docusate Sod 100 Mg Capsule PO 02/23/25 20:59 200 mg QDAY REYNA Administration Protocol Escitalopram Oxalate 20 mg 01/24/25 16:30 01/29/25 08:45 Escitalopram Oxalate 10 Mg Tablet PO 02/23/25 16:29 20 mg QDAY REYNA Administration Ferrous Sulfate 325 mg 01/21/25 11:30 01/29/25 08:46 Ferrous Sulf 325 Mg Tablet PO 02/20/25 11:29 325 mg QOD REYNA Administration Fluconazole 400 mg 01/30/25 09:00 Fluconazole 100 Mg Tablet PO 02/12/25 08:59 QDAY REYNA Folic Acid 1 mg 01/29/25 09:00 01/29/25 08:46 Folic Acid 1 Mg Tablet PO 02/28/25 08:59 1 mg QDAY REYNA Administration Furosemide 20 mg 01/22/25 18:00 01/24/25 05:38 Furosemide Inj 10 Mg/Ml Vial 2 Ml IVP 02/20/25 17:59 20 mg BIDD REYNA Administration Glucagon 1 mg 01/20/25 18:39 Glucagon Inj 1 Mg Vial IM Q15MIN PRN BG <70, and no IV access Heparin Sodium (Porcine) 5,000 unit 01/20/25 21:00 01/29/25 08:49 Heparin Sod Inj 5000 Unit/Ml Vial SC 02/03/25 20:59 5,000 unit BID REYNA Administration Ceftriaxone Sodium/Dextrose 1 gm in 50 mls @ 100 mls/hr 01/25/25 15:30 01/29/25 08:46 Rocephin/D5w 1gm Iv Premix IV 02/01/25 15:29 100 mls/hr QDAY REYNA Administration Insulin Human Lispro 0 unit 01/20/25 21:00 01/29/25 17:01 Insulin Lispro (Admelog) 1 Unit/0.01 Ml Unit SC 02/19/25 20:59 Not Given ACHS REYNA Protocol Lactulose 200 gm 01/29/25 14:45 01/29/25 14:58 Lactulose Syrup 10 Gm/15 Ml FL 02/28/25 14:44 200 gm QDAY REYNA Administration Protocol Levothyroxine Sodium 112 mcg 01/21/25 06:00 01/29/25 05:35 Levothyroxine Sodium 112 Mcg Tablet PO 02/20/25 05:59 112 mcg ACBR REYNA Administration Lidocaine 1 patch 01/21/25 10:22 Lidocaine 5% 1 Patch TOP 02/20/25 10:21 UD PRN Back pain Protocol Liothyronine Sodium 10 mcg 01/25/25 14:15 01/29/25 11:24 Liothyronine Sod 5 Mcg Tablet PO 02/24/25 14:14 10 mcg QDAY REYNA Administration Loratadine 10 mg 01/21/25 09:00 01/29/25 08:45 Loratadine 10 Mg Tablet PO 02/20/25 08:59 10 mg QDAY REYNA Administration Midodrine 15 mg 01/24/25 22:00 01/29/25 13:29 Midodrine 5 Mg Tablet PO 02/23/25 21:59 15 mg TID REYNA Administration Multivitamins 1 tab 01/29/25 09:00 01/29/25 08:45 Multivitamins Tablet PO 02/28/25 08:59 1 tab QDAY REYNA Administration Ondansetron HCl 4 mg 01/20/25 16:47 01/26/25 06:14 Ondansetron Inj 2 Mg/Ml Inj 2 Ml IVP 02/19/25 16:46 4 mg Q6H PRN Administration NAUSEA OR VOMITING Protocol Pantoprazole Sodium 40 mg 01/28/25 09:00 01/29/25 08:45 Pantoprazole 40 Mg Tablet PO 02/27/25 08:59 40 mg BID REYNA Administration Pregabalin 150 mg 01/20/25 21:00 01/29/25 08:45 Pregabalin 75 Mg Capsule PO 02/19/25 20:59 150 mg BID REYNA Administration Rifaximin 550 mg 01/25/25 21:00 01/29/25 08:45 Rifaximin 550 Mg Tablet PO 02/01/25 20:59 550 mg BID REYNA Administration Simethicone 80 mg 01/26/25 08:38 Simethicone 80 Mg Chew PO 02/25/25 08:37 QID PRN GAS Spironolactone 25 mg 01/29/25 10:15 01/29/25 12:22 Spironolactone 25 Mg Tablet PO 02/28/25 10:14 25 mg QDAY REYNA Administration Thiamine HCl 100 mg 01/29/25 09:00 01/29/25 08:45 Thiamine 100 Mg Tablet PO 02/28/25 08:59 100 mg QDAY REYNA Administration Zolpidem Tartrate 5 mg 01/25/25 21:00 01/28/25 21:46 Zolpidem 5 Mg Tablet PO 02/23/25 20:59 5 mg HS REYNA Administration Plan Ms. Mario is a 64-year-old female with past medical history significant for decompensated liver cirrhosis (diagnosed in October 2024), COPD on home oxygen, asthma, hypothyroidism, hypertension, type 2 diabetes and anxiety presented to the ED on 01/20/25 complaining of worsening abdominal pain and distention. Cardiology is consulted due to tachycardia and hypotension. #Syncopal episode #Pulmonary arterial hypertension -ruled out #Portal hypertension #Hepatorenal Syndrome #Sinus tachycardia secondary to fevers- resolved #Hypotension -Patient has been in the hospital since 01/20 however since midnight overnight patient has been having sinus tachycardia and fever. Telemetry is reviewed patient is in sinus rhythm. Since patient is a high risk for peritonitis in the setting of end-stage liver disease patient's tachycardia is likely from the fevers indicating possible source of infection. -Low cardiac suspicion for her symptoms right now, patient's hypotension is due to current illness as patient had 8.4 L of fluid removed via paracentesis. EKG: Sinus tachycardia with rate of 120 and QTc 449 Plan: -Continue treating patient's decompensated liver cirrhosis -Continue broad-spectrum IV antibiotics for possible source of infection -Recommended starting lasix adn coreg as BP tolerated -Continue spironolactone and midodrine -Recommend albumin with future paracenthesis -Continue low-sodium 2 g diet -Strict ins and outs -Echo showed good cardiac activity with EF >60% and no evidence of PAH #End-stage liver disease #Altered mental status- improved #[id number] type 2 diabetes #Primary hypertension #Hypothyroidism #COPD #Asthma #Anxiety Management as per primary team Assessment and plan discussed with my attending Survey And Mapping Technician Dr. Thom Kennedy (PGY-2)- Internal medicine resident
--- NOTE | 2025-01-29 20:23 | PD.IMPROG ---
Documentation for date of: 01/29/25 Subjective Subjective Interval history: BUN/creatinine improving creatinine is down to 0.9 patient has 4-5 bowel movements and the Abdominal pain is much better Exam Vital Signs Temp Pulse Resp BP Pulse Ox O2 Del Method O2 Flow Rate 96.9 F 101 H 16 131/78 H 96 Nasal Cannula 2 01/29/25 20:00 01/29/25 20:00 01/29/25 20:00 01/29/25 20:00 01/29/25 20:00 01/29/25 20:00 01/29/25 20:00 Objective Labs 01/29/25 05:56 01/29/25 05:56 Labs: Laboratory Results - last 24 hr 01/29/25 05:56 WBC 5.9 RBC 3.77 L Hgb 9.2 L Hct 28.0 L MCV 74 L MCH 24.4 L MCHC 32.9 RDW Std Deviation 41.3 Plt Count 157 Neut % (Auto) 64 Lymph % (Auto) 18 [place] % (Auto) 14 H Eos % (Auto) 2 Baso % (Auto) 1 Neut # (Auto) 3.7 Lymph # (Auto) 1.1 [place] # (Auto) 0.8 Eos # (Auto) 0.1 Baso # (Auto) 0.1 Immature Gran # (Auto) 0.05 H Absolute Nucleated RBC 0.00 Immature Gran % 1 H Nucleated RBC % 0 PT 12.9 H INR 1.2 Sodium 136 Potassium 3.4 Chloride 103 Carbon Dioxide 27.2 Anion Gap 6 L BUN 26 H Creatinine 0.9 D Estim Creat Clear Calc 64.2 eGFR > 60 BUN/Creatinine Ratio 29 H Glucose 148 H Calculated Osmolality 279 Calcium 9.3 Corrected Calcium 9.5 Phosphorus 1.4 L Magnesium 1.7 Total Bilirubin 1.1 AST 21 ALT 9 L Alkaline Phosphatase 135 H Total Protein 6.4 Albumin 3.8 Globulin 2.6 Albumin/Globulin Ratio 1.5 Impressions Impression: 1+ esophageal varices Hemorrhagic gastritis Advanced liver disease with advanced portal hypertension and ascites Improving renal function Improving abdominal pain Continue current management ABG Interpretation ABG results: 01/26/25 05:17 VBG pH 7.43 VBG pCO2 37 VBG pO2 59 H VBG Base Excess 0 Assessment & Plan A&P Narrative # Decompensated alcoholic liver disease with advanced portal hypertension esophageal varices and intractable ascites Plan Agree with the IV Lasix Agree with IV albumin Add spironolactone 25 mg p.o. twice daily Scheduled for therapeutic paracentesis Monitor renal function closely Consent obtained for fiberoptic esophagogastroduodenoscopy with possible biopsy possible therapeutic intervention for prophylactic band ligation of the esophageal varices Agree with IV ceftriaxone for the possibility of subacute bacterial peritonitis Will follow the patient Other medical problems include COPD on home oxygen 2 L nasal cannula Essential hypertension Hypothyroidism Hyperlipidemia Thank you very much for the opportunity to participate in care of this patient Time Spent With Patient Time: Total time spent is greater than 50% in coordination of care (as documented) at patient's floor/unit and/or counseling patient:
[2025-01-29] MEDS: ZOLPIDEM 5 MG TABLET PO (21:37)
[2025-01-29] MEDS: ALBUTEROL/IPRATROPIUM (Duoneb) RT SOL 3 ML NEBU INH (21:46)
[2025-01-29] MEDS: MORPHINE SULF INJ 10 MG/ML VIAL 2 MG IVP (22:24)
[2025-01-30] VITALS (13 sets, daily range): BP systolic 105–143; BP diastolic 50–87; PULSE 74–109; RESP 9–18; TEMP 36.1–36.2; O2SAT 90–96
[2025-01-30] MEDS: HYDROcodone/APAP 5/325 TABLET 1 TAB PO ×2 (03:18→20:42)
[2025-01-30] MEDS: SIMETHICONE 80 MG CHEW PO ×2 (03:54→20:42)
--- NOTE | 2025-01-30 04:24 | XR_ITS ---
Examination: Abdomen AP single view Technique: AP portable supine abdomen, single view Exam date and time: January 30, 2025, 0857 hrs. Indications: Abdominal pain and distention this week Comparison: January 26, 2025 Findings: Moderate air and stool throughout the colon including rectum. Mild to moderate air distended small bowel loops in the left abdomen No free air Impression: Mild to moderately air distended small bowel loops in the left abdomen, clinical correlation advised
[2025-01-30] MEDS: MORPHINE SULF INJ 10 MG/ML VIAL 2 MG IVP (04:47)
[2025-01-30] MEDS: LEVOTHYROXINE SODIUM 112 MCG TABLET PO (05:42)
[2025-01-30 06:06] LABS: Basophils # (Auto) 0.1 Thou/mm3 (0.0-0.2); Basophils % (Auto) 1 % (0-2.5); Eosinophils # (Auto) 0.2 Thou/mm3 (0.0-0.5); Eosinophils % (Auto) 3 % (0-10); Hematocrit 31.4 % (36.0-46.0); Hemoglobin 9.9 g/dL (12.0-16.0); Immature Granulocytes Auto 0.18 Thou/mm3 (0.00-0.00); Lymphocytes # (Auto) 1.5 Thou/mm3 (1.0-4.8); Lymphocytes % (Auto) 19 % (10-50); Mean Corpuscular HGB Conc 31.5 g/dl (31.0-37.0); Mean Corpuscular Hemoglobin 24.9 pg (25.0-35.0); Mean Corpuscular Volume 79 fL (80-100); Monocytes # (Auto) 1.0 Thou/mm3 (0.0-0.8); Monocytes % (Auto) 13 % (0-12); Neutrophils # (Auto) 4.7 Thou/mm3 (1.8-7.7); Neutrophils % (Auto) 61 % (37-80); Nucleated Red Blood Cell # 0.00 Thou/mm3 (0.00-0.00); Nucleated Red Blood Cell % 0 /100 WBC (0); Platelet Count 182 Thou/mm3 (140-440); RDW Standard Deviation 43.0 fL (36.4-46.3); Red Blood Count 3.98 Miln/mm3 (4.00-5.20); White Blood Count 7.7 Thou/mm3 (3.6-11.0)
[2025-01-30 06:26] LABS: INR 1.2 (0.9-1.3); Prothrombin Time 13.0 Seconds (9.0-12.2)
[2025-01-30 07:00] LABS: Alanine Aminotransferase 9 U/L (10-49); Albumin, Serum 3.8 gm/dL (3.4-4.8); Albumin/Globulin Ratio 1.4 (1.2-2.2); Alkaline Phosphatase 174 U/L (46-116); Anion Gap 11 (7-16); Aspartate Amino Transferase 23 U/L (0-34); BUN/Creatinine Ratio 22 Ratio (12-20); Bilirubin,Total 1.0 mg/dL (0.3-1.2); Blood Urea Nitrogen 22 mg/dL (9-23); Calcium 9.7 mg/dL (8.3-10.6); Calcium (Corrected) 9.9 mg/dL (8.5-10.1); Carbon Dioxide 28.8 mMol/L (20.0-31.0); Chloride 99 mMol/L (98-107); Creatinine (Component) 1.0 mg/dL (0.6-1.3); Estimated Creatinine Clearance 57.8 mL/min (>60); Globulin 2.8 gm/dL (2.3-3.5); Glucose 167 mg/dL (74-106); Magnesium 1.3 mg/dL (1.6-2.6); Osmolality,Calculated 284 (275-295); Phosphorous 3.1 mg/dL (2.4-5.1); Potassium 3.3 mMol/L (3.4-5.1); Sodium 139 mMol/L (136-145); Total Protein 6.6 gm/dL (5.7-8.2); eGFR > 60 See Note
[2025-01-30] MEDS: INSULIN LISPRO (AdmeLOG) 1 UNIT/0.01 ML UNIT SC ×2 (07:33→20:36)
[2025-01-30] MEDS: cefTRIAXone/D5w 1gm IV premix 1 GM/50 ML BAG IV (09:59)
[2025-01-30] MEDS: PREGABALIN 75 MG CAPSULE 150 MG PO ×2 (10:00→20:41)
[2025-01-30] MEDS: ESCITALOPRAM OXALATE 10 MG TABLET 20 MG PO (10:00)
[2025-01-30] MEDS: LIOTHYRONINE SOD 5 mCg TABLET 10 MCG PO (10:00)
[2025-01-30] MEDS: FLUCONAZOLE 100 MG TABLET 400 MG PO (10:00)
[2025-01-30] MEDS: FOLIC ACID 1 MG TABLET PO (10:00)
[2025-01-30] MEDS: THIAMINE 100 MG TABLET PO (10:00)
[2025-01-30] MEDS: ASCORBIC ACID 250 MG TABLET PO ×2 (10:01→20:42)
[2025-01-30] MEDS: MULTIVITAMINS TABLET 1 TAB PO (10:01)
[2025-01-30] MEDS: DOCUSATE SOD 100 MG CAPSULE 200 MG PO (10:02)
[2025-01-30] MEDS: SPIRONOLACTONE 25 MG TABLET PO (10:02)
[2025-01-30] MEDS: PANTOPRAZOLE 40 MG TABLET PO ×2 (10:02→20:42)
[2025-01-30] MEDS: HEPARIN SOD INJ 5000 UNIT/ML VIAL SC ×2 (10:04→20:37)
[2025-01-30 10:23] LABS: Ammonia 57 uMol/L (11-32)
[2025-01-30] MEDS: Magnesium Sulfate 4 GM Ivpb 4 GM/50 ML BAG IV (10:23)
[2025-01-30] MEDS: LACTULOSE SYRUP 20 GM/30 ML UDC 30 GM PO ×3 (11:35→20:42)
--- NOTE | 2025-01-30 12:06 | PD.RESPRO ---
Documentation for date of: 01/30/25 Subjective Subjective Interval history: Patient seen at bedside. Overnight midodrine was not given twice due to the patient's systolic blood pressure being above 120. Bedside abdominal ultrasound showed minimal. Patient had no BMs today. Patient more drowsy today but is alert and oriented. Exam Vital Signs Temp Pulse Resp BP Pulse Ox O2 Del Method O2 Flow Rate 97.1 F 92 14 122/74 96 Nasal Cannula 2 01/30/25 08:00 01/30/25 10:02 01/30/25 08:00 01/30/25 10:02 01/30/25 08:00 01/30/25 08:00 01/30/25 08:00 Narrative Exam GENERAL Normal appearing adult female, NAD. HEENT NCAT. GEOVANNI. Oral mucosa is moist. Patent Nares NECK Supple, nontender, no JVD. CHEST RRR, no m/g/r, bilateral inspiratory crackles,no work of breathing, symmetrical expansion. ABDOMEN Soft, moderately distended, mildly tender throughout. No guarding/rebound tenderness/masses. Bowel sounds presents EXTREMITIES No edema/cyanosis. SKIN Warm and dry, no jaundice/rashes. Slightly pale. NEUROMUSCULAR [place] bilaterally of upper extremities. Moves all 4 extremities slowly, with full ROM. No focal neurologic deficits. PSYCHIATRY Normal mood and affect, cooperative, no hallucinations Objective Labs 01/31/25 05:00 01/31/25 05:00 Labs: Laboratory Results - last 24 hr 01/30/25 01/30/25 04:50 09:50 WBC 7.7 RBC 3.98 L Hgb 9.9 L Hct 31.4 L MCV 79 L MCH 24.9 L MCHC 31.5 RDW Std Deviation 43.0 Plt Count 182 Neut % (Auto) 61 Lymph % (Auto) 19 [place] % (Auto) 13 H Eos % (Auto) 3 Baso % (Auto) 1 Neut # (Auto) 4.7 Lymph # (Auto) 1.5 [place] # (Auto) 1.0 H Eos # (Auto) 0.2 Baso # (Auto) 0.1 Immature Gran # (Auto) 0.18 H Absolute Nucleated RBC 0.00 Immature Gran % 2 H Nucleated RBC % 0 PT 13.0 H INR 1.2 Sodium 139 Potassium 3.3 L Chloride 99 Carbon Dioxide 28.8 Anion Gap 11 BUN 22 Creatinine 1.0 Estim Creat Clear Calc 57.8 L eGFR > 60 BUN/Creatinine Ratio 22 H Glucose 167 H Calculated Osmolality 284 Calcium 9.7 Corrected Calcium 9.9 Phosphorus 3.1 Magnesium 1.3 L Total Bilirubin 1.0 AST 23 ALT 9 L Alkaline Phosphatase 174 H D Ammonia 57 H Total Protein 6.6 Albumin 3.8 Globulin 2.8 Albumin/Globulin Ratio 1.4 ABG Interpretation ABG results: 01/26/25 05:17 VBG pH 7.43 VBG pCO2 37 VBG pO2 59 H VBG Base Excess 0 Quality Measures Quality Measures VTE prophylaxis Advance care planning discussed with:: patient Assessment & Plan Assessment Current Active Medications: Generic Name Dose Route Start Last Admin Trade Name Freq PRN Reason Stop Dose Admin Acetaminophen 650 mg 01/20/25 16:47 01/28/25 11:30 Acetaminophen 325 Mg Tablet PO 02/19/25 16:46 650 mg Q6H PRN Administration PAIN SCALE 1-3 (mild Acetaminophen 650 mg 01/20/25 16:47 01/24/25 19:47 Acetaminophen 325 Mg Tablet PO 02/19/25 16:46 650 mg Q6H PRN Administration Fever >100.4 Hydrocodone Bitart/Acetaminophen 1 tab 01/28/25 10:30 01/30/25 03:18 Hydrocodone/Apap 5/325 Tablet PO 02/02/25 10:29 1 tab Q4HR PRN Administration Pain 4-7 or breakthrough Albuterol/Ipratropium 3 ml 01/20/25 18:38 01/29/25 21:46 Albuterol/Ipratropium (Duoneb) Rt [place] 3 Ml Nebu INH 02/19/25 18:37 3 ml Q6HRRT PRN Administration Wheezing Ascorbic Acid 250 mg 01/29/25 09:00 01/30/25 10:01 Ascorbic Acid 250 Mg Tablet PO 02/28/25 08:59 250 mg BID REYNA Administration Carvedilol 3.125 mg 01/29/25 17:30 01/30/25 07:35 Carvedilol 3.125 Mg Tablet PO 02/28/25 17:29 3.125 mg BIDWM REYNA Administration Dextrose 25 ml 01/20/25 18:39 Dextrose 50%-Water Inj 50 Ml Syringe IV 02/19/25 18:38 Q15MIN PRN BG 50-70 responsive npo pt Dextrose 50 ml 01/20/25 18:39 Dextrose 50%-Water Inj 50 Ml Syringe IV 02/19/25 18:38 Q15MIN PRN BG <50 OR BG <70 & pt unresponsive Docusate Sodium 200 mg 01/24/25 21:00 01/30/25 10:02 Docusate Sod 100 Mg Capsule PO 02/23/25 20:59 200 mg QDAY REYNA Administration Protocol Escitalopram Oxalate 20 mg 01/24/25 16:30 01/30/25 10:00 Escitalopram Oxalate 10 Mg Tablet PO 02/23/25 16:29 20 mg QDAY REYNA Administration Ferrous Sulfate 325 mg 01/21/25 11:30 01/29/25 08:46 Ferrous Sulf 325 Mg Tablet PO 02/20/25 11:29 325 mg QOD REYNA Administration Fluconazole 400 mg 01/30/25 09:00 01/30/25 10:00 Fluconazole 100 Mg Tablet PO 02/12/25 08:59 400 mg QDAY REYNA Administration Folic Acid 1 mg 01/29/25 09:00 01/30/25 10:00 Folic Acid 1 Mg Tablet PO 02/28/25 08:59 1 mg QDAY REYNA Administration Furosemide 40 mg 01/30/25 09:30 01/30/25 10:01 Furosemide 40 Mg Tablet PO 03/01/25 09:29 40 mg QDAY REYNA Administration Glucagon 1 mg 01/20/25 18:39 Glucagon Inj 1 Mg Vial IM Q15MIN PRN BG <70, and no IV access Heparin Sodium (Porcine) 5,000 unit 01/20/25 21:00 01/30/25 10:04 Heparin Sod Inj 5000 Unit/Ml Vial SC 02/03/25 20:59 5,000 unit BID REYNA Administration Ceftriaxone Sodium/Dextrose 1 gm in 50 mls @ 100 mls/hr 01/25/25 15:30 01/30/25 09:59 Rocephin/D5w 1gm Iv Premix IV 02/01/25 15:29 100 mls/hr QDAY REYNA Administration Insulin Human Lispro 0 unit 01/20/25 21:00 01/30/25 07:33 Insulin Lispro (Admelog) 1 Unit/0.01 Ml Unit SC 02/19/25 20:59 1 unit ACHS REYNA Administration Protocol Lactulose 30 gm 01/30/25 12:00 01/30/25 11:35 Lactulose Syrup 20 Gm/30 Ml Udc PO 03/01/25 11:59 30 gm QID REYNA Administration Protocol Levothyroxine Sodium 112 mcg 01/21/25 06:00 01/30/25 05:42 Levothyroxine Sodium 112 Mcg Tablet PO 02/20/25 05:59 112 mcg ACBR REYNA Administration Lidocaine 1 patch 01/21/25 10:22 Lidocaine 5% 1 Patch TOP 02/20/25 10:21 UD PRN Back pain Protocol Liothyronine Sodium 10 mcg 01/25/25 14:15 01/30/25 10:00 Liothyronine Sod 5 Mcg Tablet PO 02/24/25 14:14 10 mcg QDAY REYNA Administration Loratadine 10 mg 01/21/25 09:00 01/30/25 10:00 Loratadine 10 Mg Tablet PO 02/20/25 08:59 10 mg QDAY REYNA Administration Midodrine 15 mg 01/30/25 07:34 Midodrine 5 Mg Tablet PO 02/23/25 21:59 TID PRN SBP below 100 Multivitamins 1 tab 01/29/25 09:00 01/30/25 10:01 Multivitamins Tablet PO 02/28/25 08:59 1 tab QDAY REYNA Administration Ondansetron HCl 4 mg 01/20/25 16:47 01/26/25 06:14 Ondansetron Inj 2 Mg/Ml Inj 2 Ml IVP 02/19/25 16:46 4 mg Q6H PRN Administration NAUSEA OR VOMITING Protocol Pantoprazole Sodium 40 mg 01/28/25 09:00 01/30/25 10:02 Pantoprazole 40 Mg Tablet PO 02/27/25 08:59 40 mg BID REYNA Administration Pregabalin 150 mg 01/20/25 21:00 01/30/25 10:00 Pregabalin 75 Mg Capsule PO 02/19/25 20:59 150 mg BID REYNA Administration Rifaximin 550 mg 01/25/25 21:00 01/30/25 10:01 Rifaximin 550 Mg Tablet PO 02/01/25 20:59 550 mg BID REYNA Administration Simethicone 80 mg 01/26/25 08:38 01/30/25 03:54 Simethicone 80 Mg Chew PO 02/25/25 08:37 80 mg QID PRN Administration GAS Spironolactone 25 mg 01/29/25 10:15 01/30/25 10:02 Spironolactone 25 Mg Tablet PO 02/28/25 10:14 25 mg QDAY REYNA Administration Thiamine HCl 100 mg 01/29/25 09:00 01/30/25 10:00 Thiamine 100 Mg Tablet PO 02/28/25 08:59 100 mg QDAY REYNA Administration Zolpidem Tartrate 5 mg 01/25/25 21:00 01/29/25 21:37 Zolpidem 5 Mg Tablet PO 02/23/25 20:59 5 mg HS REYNA Administration Plan Assessment: 64 year-old female with PMHx of alcoholic liver cirrhosis, COPD on home O2, hypothyroidism, asthma, HTN, T2DM and anxiety who presented to the ED with worsening ascites and abdominal discomfort. Admitted under observation for therapeutic/diagnostic paracentesis. Decompensated alcoholic liver cirrhosis Intractable ascites Advanced portal hypertension Esophageal varices ?Hepatic encephalopathy ? Subacute bacterial peritonitis Significant alcohol use history, cirrhosis diagnosed in 08/2023. Has been on SPIRONOLACTONE, presenting with 1 month of worsening abdominal ascites. Abdominal CT showed cirrhosis, significant ascites, prominent splenomegaly, anasarca, esophageal and perigastric varices, no bowel obstruction. Ultrasound gallbladder showed distended gallbladder, negative for cholelithiasis, mildly thickened gallbladder wall likely from ascites. Anasarca on exam, with 2+ bilateral extremity edema extending above the knee. MELD score 9 equates to 6% mortality in 3 months. Child-Wilhelm score 7, Class B, indication for transplant evaluation. Paracentesis removed 8.4 L fluids, ALBUMIN was given pre and post para. Paracentesis analysis: WBC 202, peritoneal RBC 1000, total protein 4, albumin 2.2, LD H108, glucose 137, amylase 29 SAAG < 1.1 g/dL Portal hypertension is not necessarily the cause of ascites Ultrasound guided paracentesis removed 4550 cc of fluid Abdominal ultrasound 01/28/2025 showed minimal ascites MELD-Na Score (01/28/2025) 12 points, <2% mortality estimated 90 day mortality ?Dr. Nagy to perform EGD with possible biopsy, possible therapeutic intervention for prophylactic band ligation of esophageal varices ? Restarted Lasix, 40 mg p.o. daily today ? Ceftriaxone 1 g every 24 hours for hepatic encephalopathy ? Rifaximin 550 mg p.o. twice daily for hepatic encephalopathy ? SPIRONOLACTONE 25 mg BID ? Fluconazole 400 mg daily started today ? Fluid restriction ? Sodium restriction of 2 g/day Acute encephalopathy?improving New onset fever, hypotension, low O2 saturations, tachycardia Hepatic encephalopathy Low suspicion of stroke as no focal neurological findings. Patient did have paracentesis which removed 8.4 L on 01/21/2025. Blood pressure had been soft since. Patient has been getting IV albumin. Patient has a bilateral tremor of the arms which is new in onset since >3days ago, patient is known to have tremors of the hands. Patient has had no alcohol since last year KUB showed large stool in rectosigmoid, few air distended small bowel loop EEG: diffuse slowing c/w hepatic encephalopathy ? Neurology following, see recommendations ? Cardiology following, see recommendations ? Pip-tazo 3.375 IV every 8 hours ? Midodrine changed from scheduled to as needed ? Escitalopram 20 mg daily home dose ? Holding metoclopramide ? Encourage continued BM movements Constipation?improving Abdominal distention? improving Patient has not had a bowel movement in a few days KUB showed large stool in rectosigmoid, few air distended small bowel loop CT abdomen pelvis 01/26/25 Cirrhosis with moderate ascites Significant splenomegaly Esophageal and perigastric varices Suspicious for ischemic right colon Small bowel obstruction pattern Recommend surgical consultation AXR 01/30/25 Moderate air and stool throughout the colon including rectum. Mild to moderate air distended small bowel loops in the left abdomen No free air Latest ammonia level 57 (01/30/2025). Likely secondary to constipation Plan ? Lactulose changed from per rectum to 30 g p.o. 4 times daily Acute kidney injury - resolved Prerenal 2/2 to hypotention ?Hepatorenal syndrome Likely secondary to constipation Creatinine 1.0 Baseline Cr 0.9 ? Resumed Lasix 40 mg once p.o. daily ? Monitor renal panel ? Renally dose meds, avoid overdiuresis and NEPHROTOXINS Hypothyroidism TSH 2.33 Free T4 1.15 Thyroxine T3 48.2 Free T3 0.8 Patient was taking liothyronine 20 mcg daily but was not started in hospital - Liothyronine 10 mcg daily started today, half of patient's home dose, under Dr. Jarvis's (endocrinology) recommendation ? Levothyroxine 112 mcg daily Microcytic anemia (stable) Grade 1 esophageal varices Mild thrombocytopenia (resolved) Hgb 8.9, baseline 11.4. Likely iron deficiency versus cirrhosis. CT showed esophageal and perigastric varices. Reports chronic, recurrent hemorrhoidal bleed, but denies dark stool or upper GI bleed. Had an EGD last year and was abnormal. She is on a 5-year colonoscopy scheduled for colonic polyps, last colonoscopy 5 years ago. B12 and folate WNL. Iron stores are low. EGD showed grade 1 lower third esophageal varices, moderate patchy hemorrhagic characteristic of the gastric antrum. GI recommended outpatient colonoscopy. Hemoglobin stable. ? Transfuse if Hgb less than 8 ? Will need PROPRANOLOL for variceal prophylaxis, if BP can tolerate ? Continue daily oral iron supplements HTN Asymptomatic sinus bradycardia Currently BP soft, normocardic. EKG shows sinus bradycardia, likely cirrhosis related on oral dysfunction versus BETA-BLOCKERS. ? Continue home LEVOTHYROXINE 112 mcg AC BR ? Consider resume home METOPROLOL when able ? Continue MIDODRINE 10 mg TID COPD, asthma Chronic respiratory failure, on home 2 L O2 No signs of asthma or COPD exacerbation ? DuoNebs q.6h. PRN ? Will discharge on TRELEGY T2DM A1c 7.7 from 08/2024. ? INSULIN sliding scale ? Accu-Cheks Elevated lipase Lipase 74, no nausea or vomiting, no epigastric pain subjectively on exam. No radiographic findings of acute pancreatitis. ? Continue to monitor Electrolyte abnormalities ? Daily labs, replete as needed Anxiety ? Continue home LYRICA Health maintenance Diet: Renal diet GI prophylaxis: PROTONIX DVT prophylaxis: SCDs Antibiotics: Ceftriaxone and rifaximin CODE STATUS: Full code Case discussed with my attending Dr. Chiquis Kidd MD PGY-1 Attending Provider Attestation/Addendum I attest that I was physically present for the evaluation, physical examination, lab and imaging review of the patient with the residents. I discussed the case with the residents and agree with the findings and plans of care as documented above. At bedside today, patient appears more sleepy compared to yesterday. Ammonia level was obtained, which was elevated compared to yesterday. Bedside abdominal ultrasound showed only minimal ascitic fluid. Patient has not had bowel movement today. We will continue with rifaximin and lactulose. Patient continues to be on spironolactone, Coreg. Added Lasix. Patient will also receive rectal lactulose, we will closely monitor for bowel movements and mental status. Salvador Sim MD
--- NOTE | 2025-01-30 12:41 | ESPR_ITS ---
<Statement entered by Erin Tomas MD - 01/31/25 17:50> I personally examined the patient evaluated patient is doing clinically better tolerating medications including low-dose spironolactone and Lasix as a low-dose beta-shaheen well so far she is in good spirits heart rate also settled down. Evaluated the patient with PGY 2 Dr. Michael Beltrán agree with the treatment plan recommendation as documented Documentation for date of: 01/30/25 Subjective Subjective Interval history: Patient is seen and examined with son at bedside No acute overnight events. Still complaining of abdominal pain mainly in the right upper and lower quadrant. Appears drowsy but alert, awake and oriented. Gastroenterology, Dr. Nagy is following the patient and might undergo EGD Vitals are stable and heart rate is around 90 to 95 bpm Renal functions improved significantly. Maintaining adequate amount of urine Recommended to continue Carvedilol, spironolactone and furosemide. Can increase the dose based on blood pressures and patient's clinical condition Exam Vital Signs Temp Pulse Resp BP Pulse Ox O2 Del Method O2 Flow Rate 97.1 F 92 14 122/74 96 Nasal Cannula 2 01/30/25 08:00 01/30/25 10:02 01/30/25 08:00 01/30/25 10:02 01/30/25 08:00 01/30/25 08:00 01/30/25 08:00 Narrative Exam GENERAL: A&Ox2, chronically ill appearing, Awake, Not in acute distress NEURO: no focal neurological deficits HEENT: Atraumatic, Normocephalic. mucous membranes moist. Eyes open, symmetrical, & clear HEART: Normal Heart Sounds, regular rate and rhythm LUNGS: no crackles ABDOMEN: moderatly distended abdomen however it is soft, noted tenderness on right side of abdomen EXTREMITIES: no edema noted in LE, no tenderness, able to move all 4 extremities, pedal pulses palpated Objective Labs 01/30/25 04:50 01/30/25 04:50 Labs: Laboratory Results - last 24 hr 01/30/25 01/30/25 04:50 09:50 WBC 7.7 RBC 3.98 L Hgb 9.9 L Hct 31.4 L MCV 79 L MCH 24.9 L MCHC 31.5 RDW Std Deviation 43.0 Plt Count 182 Neut % (Auto) 61 Lymph % (Auto) 19 [place] % (Auto) 13 H Eos % (Auto) 3 Baso % (Auto) 1 Neut # (Auto) 4.7 Lymph # (Auto) 1.5 [place] # (Auto) 1.0 H Eos # (Auto) 0.2 Baso # (Auto) 0.1 Immature Gran # (Auto) 0.18 H Absolute Nucleated RBC 0.00 Immature Gran % 2 H Nucleated RBC % 0 PT 13.0 H INR 1.2 Sodium 139 Potassium 3.3 L Chloride 99 Carbon Dioxide 28.8 Anion Gap 11 BUN 22 Creatinine 1.0 Estim Creat Clear Calc 57.8 L eGFR > 60 BUN/Creatinine Ratio 22 H Glucose 167 H Calculated Osmolality 284 Calcium 9.7 Corrected Calcium 9.9 Phosphorus 3.1 Magnesium 1.3 L Total Bilirubin 1.0 AST 23 ALT 9 L Alkaline Phosphatase 174 H D Ammonia 57 H Total Protein 6.6 Albumin 3.8 Globulin 2.8 Albumin/Globulin Ratio 1.4 ABG Interpretation ABG results: 01/26/25 05:17 VBG pH 7.43 VBG pCO2 37 VBG pO2 59 H VBG Base Excess 0 Quality Measures Quality Measures VTE prophylaxis Advance care planning discussed with:: patient Assessment & Plan Assessment Current Active Medications: Generic Name Dose Route Start Last Admin Trade Name Freq PRN Reason Stop Dose Admin Acetaminophen 650 mg 01/20/25 16:47 01/28/25 11:30 Acetaminophen 325 Mg Tablet PO 02/19/25 16:46 650 mg Q6H PRN Administration PAIN SCALE 1-3 (mild Acetaminophen 650 mg 01/20/25 16:47 01/24/25 19:47 Acetaminophen 325 Mg Tablet PO 02/19/25 16:46 650 mg Q6H PRN Administration Fever >100.4 Hydrocodone Bitart/Acetaminophen 1 tab 01/28/25 10:30 01/30/25 03:18 Hydrocodone/Apap 5/325 Tablet PO 02/02/25 10:29 1 tab Q4HR PRN Administration Pain 4-7 or breakthrough Albuterol/Ipratropium 3 ml 01/20/25 18:38 01/29/25 21:46 Albuterol/Ipratropium (Duoneb) Rt Lisset 3 Ml Nebu INH 02/19/25 18:37 3 ml Q6HRRT PRN Administration Wheezing Ascorbic Acid 250 mg 01/29/25 09:00 01/30/25 10:01 Ascorbic Acid 250 Mg Tablet PO 02/28/25 08:59 250 mg BID REYNA Administration Carvedilol 3.125 mg 01/29/25 17:30 01/30/25 07:35 Carvedilol 3.125 Mg Tablet PO 02/28/25 17:29 3.125 mg BIDWM REYNA Administration Dextrose 25 ml 01/20/25 18:39 Dextrose 50%-Water Inj 50 Ml Syringe IV 02/19/25 18:38 Q15MIN PRN BG 50-70 responsive npo pt Dextrose 50 ml 01/20/25 18:39 Dextrose 50%-Water Inj 50 Ml Syringe IV 02/19/25 18:38 Q15MIN PRN BG <50 OR BG <70 & pt unresponsive Docusate Sodium 200 mg 01/24/25 21:00 01/30/25 10:02 Docusate Sod 100 Mg Capsule PO 02/23/25 20:59 200 mg QDAY REYNA Administration Protocol Escitalopram Oxalate 20 mg 01/24/25 16:30 01/30/25 10:00 Escitalopram Oxalate 10 Mg Tablet PO 02/23/25 16:29 20 mg QDAY REYNA Administration Ferrous Sulfate 325 mg 01/21/25 11:30 01/29/25 08:46 Ferrous Sulf 325 Mg Tablet PO 02/20/25 11:29 325 mg QOD REYNA Administration Fluconazole 400 mg 01/30/25 09:00 01/30/25 10:00 Fluconazole 100 Mg Tablet PO 02/12/25 08:59 400 mg QDAY REYNA Administration Folic Acid 1 mg 01/29/25 09:00 01/30/25 10:00 Folic Acid 1 Mg Tablet PO 02/28/25 08:59 1 mg QDAY REYNA Administration Furosemide 40 mg 01/30/25 09:30 01/30/25 10:01 Furosemide 40 Mg Tablet PO 03/01/25 09:29 40 mg QDAY REYNA Administration Glucagon 1 mg 01/20/25 18:39 Glucagon Inj 1 Mg Vial IM Q15MIN PRN BG <70, and no IV access Heparin Sodium (Porcine) 5,000 unit 01/20/25 21:00 01/30/25 10:04 Heparin Sod Inj 5000 Unit/Ml Vial SC 02/03/25 20:59 5,000 unit BID REYNA Administration Ceftriaxone Sodium/Dextrose 1 gm in 50 mls @ 100 mls/hr 01/25/25 15:30 01/30/25 09:59 Rocephin/D5w 1gm Iv Premix IV 02/01/25 15:29 100 mls/hr QDAY REYNA Administration Insulin Human Lispro 0 unit 01/20/25 21:00 01/30/25 07:33 Insulin Lispro (Admelog) 1 Unit/0.01 Ml Unit SC 02/19/25 20:59 1 unit ACHS REYNA Administration Protocol Lactulose 30 gm 01/30/25 12:00 01/30/25 11:35 Lactulose Syrup 20 Gm/30 Ml Udc PO 03/01/25 11:59 30 gm QID REYNA Administration Protocol Levothyroxine Sodium 112 mcg 01/21/25 06:00 01/30/25 05:42 Levothyroxine Sodium 112 Mcg Tablet PO 02/20/25 05:59 112 mcg ACBR REYNA Administration Lidocaine 1 patch 01/21/25 10:22 Lidocaine 5% 1 Patch TOP 02/20/25 10:21 UD PRN Back pain Protocol Liothyronine Sodium 10 mcg 01/25/25 14:15 01/30/25 10:00 Liothyronine Sod 5 Mcg Tablet PO 02/24/25 14:14 10 mcg QDAY REYNA Administration Loratadine 10 mg 01/21/25 09:00 01/30/25 10:00 Loratadine 10 Mg Tablet PO 02/20/25 08:59 10 mg QDAY REYNA Administration Midodrine 15 mg 01/30/25 07:34 Midodrine 5 Mg Tablet PO 02/23/25 21:59 TID PRN SBP below 100 Multivitamins 1 tab 01/29/25 09:00 01/30/25 10:01 Multivitamins Tablet PO 02/28/25 08:59 1 tab QDAY REYNA Administration Ondansetron HCl 4 mg 01/20/25 16:47 01/26/25 06:14 Ondansetron Inj 2 Mg/Ml Inj 2 Ml IVP 02/19/25 16:46 4 mg Q6H PRN Administration NAUSEA OR VOMITING Protocol Pantoprazole Sodium 40 mg 01/28/25 09:00 01/30/25 10:02 Pantoprazole 40 Mg Tablet PO 02/27/25 08:59 40 mg BID REYNA Administration Pregabalin 150 mg 01/20/25 21:00 01/30/25 10:00 Pregabalin 75 Mg Capsule PO 02/19/25 20:59 150 mg BID REYNA Administration Rifaximin 550 mg 01/25/25 21:00 01/30/25 10:01 Rifaximin 550 Mg Tablet PO 02/01/25 20:59 550 mg BID REYNA Administration Simethicone 80 mg 01/26/25 08:38 01/30/25 03:54 Simethicone 80 Mg Chew PO 02/25/25 08:37 80 mg QID PRN Administration GAS Spironolactone 25 mg 01/29/25 10:15 01/30/25 10:02 Spironolactone 25 Mg Tablet PO 02/28/25 10:14 25 mg QDAY REYNA Administration Thiamine HCl 100 mg 01/29/25 09:00 01/30/25 10:00 Thiamine 100 Mg Tablet PO 02/28/25 08:59 100 mg QDAY REYNA Administration Zolpidem Tartrate 5 mg 01/25/25 21:00 01/29/25 21:37 Zolpidem 5 Mg Tablet PO 02/23/25 20:59 5 mg HS REYNA Administration Plan Ms. Mario is a 64-year-old female with past medical history significant for decompensated liver cirrhosis (diagnosed in October 2024), COPD on home oxygen, asthma, hypothyroidism, hypertension, type 2 diabetes and anxiety presented to the ED on 01/20/25 complaining of worsening abdominal pain and distention. Cardiology is consulted due to tachycardia and hypotension. #Syncopal episode #Pulmonary arterial hypertension -ruled out #Portal hypertension #Hepatorenal Syndrome #Sinus tachycardia secondary to fevers- resolved #Hypotension -Patient has been in the hospital since 01/20 however since midnight overnight patient has been having sinus tachycardia and fever. Telemetry is reviewed patient is in sinus rhythm. Since patient is a high risk for peritonitis in the setting of end-stage liver disease patient's tachycardia is likely from the fevers indicating possible source of infection. -Low cardiac suspicion for her symptoms right now, patient's hypotension is due to current illness as patient had 8.4 L of fluid removed via paracentesis. EKG: Sinus tachycardia with rate of 120 and QTc 449 Plan: -Continue treating patient's decompensated liver cirrhosis -Continue broad-spectrum IV antibiotics for possible source of infection -Recommended to continue lasix, coreg, spironolactone and midodrine as BP tolerated -Recommend albumin with future paracenthesis -Continue low-sodium 2 g diet -Strict ins and outs -Echo showed good cardiac activity with EF >60% and no evidence of PAH #End-stage liver disease #Altered mental status- improved #[id number] type 2 diabetes #Primary hypertension #Hypothyroidism #COPD #Asthma #Anxiety Management as per primary team Patient plan of care was discussed with the route process administrator, Dr. Thom Beltrán, PGY2
--- NOTE | 2025-01-30 18:21 | PD.IMPROG ---
Documentation for date of: 01/30/25 Subjective Subjective Interval history: Patient evaluated in [facility] and ruled out Ascites remains a major issue along with encephalopathy Exam Vital Signs Temp Pulse Resp BP Pulse Ox O2 Del Method O2 Flow Rate 97.2 F 84 12 112/50 L 95 Nasal Cannula 2 01/30/25 16:00 01/30/25 18:09 01/30/25 16:00 01/30/25 18:09 01/30/25 16:00 01/30/25 16:00 01/30/25 16:00 Objective Labs 01/30/25 04:50 01/30/25 04:50 Labs: Laboratory Results - last 24 hr 01/30/25 01/30/25 04:50 09:50 WBC 7.7 RBC 3.98 L Hgb 9.9 L Hct 31.4 L MCV 79 L MCH 24.9 L MCHC 31.5 RDW Std Deviation 43.0 Plt Count 182 Neut % (Auto) 61 Lymph % (Auto) 19 [place] % (Auto) 13 H Eos % (Auto) 3 Baso % (Auto) 1 Neut # (Auto) 4.7 Lymph # (Auto) 1.5 [place] # (Auto) 1.0 H Eos # (Auto) 0.2 Baso # (Auto) 0.1 Immature Gran # (Auto) 0.18 H Absolute Nucleated RBC 0.00 Immature Gran % 2 H Nucleated RBC % 0 PT 13.0 H INR 1.2 Sodium 139 Potassium 3.3 L Chloride 99 Carbon Dioxide 28.8 Anion Gap 11 BUN 22 Creatinine 1.0 Estim Creat Clear Calc 57.8 L eGFR > 60 BUN/Creatinine Ratio 22 H Glucose 167 H Calculated Osmolality 284 Calcium 9.7 Corrected Calcium 9.9 Phosphorus 3.1 Magnesium 1.3 L Total Bilirubin 1.0 AST 23 ALT 9 L Alkaline Phosphatase 174 H D Ammonia 57 H Total Protein 6.6 Albumin 3.8 Globulin 2.8 Albumin/Globulin Ratio 1.4 Impressions Impression: Hepatic encephalopathy Hepatorenal syndrome improving Advanced portal hypertension in setting of cirrhotic liver disease with intractable ascites As needed paracentesis ultrasound-guided Renal function improving ABG Interpretation ABG results: 01/26/25 05:17 VBG pH 7.43 VBG pCO2 37 VBG pO2 59 H VBG Base Excess 0 Assessment & Plan A&P Narrative # Decompensated alcoholic liver disease with advanced portal hypertension esophageal varices and intractable ascites Plan Agree with the IV Lasix Agree with IV albumin Add spironolactone 25 mg p.o. twice daily Scheduled for therapeutic paracentesis Monitor renal function closely Consent obtained for fiberoptic esophagogastroduodenoscopy with possible biopsy possible therapeutic intervention for prophylactic band ligation of the esophageal varices Agree with IV ceftriaxone for the possibility of subacute bacterial peritonitis Will follow the patient Other medical problems include COPD on home oxygen 2 L nasal cannula Essential hypertension Hypothyroidism Hyperlipidemia Thank you very much for the opportunity to participate in care of this patient Time Spent With Patient Time: Total time spent is greater than 50% in coordination of care (as documented) at patient's floor/unit and/or counseling patient:
[2025-01-30] MEDS: ZOLPIDEM 5 MG TABLET PO (21:41)
--- NOTE | 2025-01-30 23:50 | PD.VPROG1 ---
Telemedicine visit statement This visit was conducted with the use of phone was obtained on 01/30/25 at 2350. Documentation for date of: 01/30/25 Subjective Subjective Interval history: Patient is in telemetry. Continues to have abdominal distention and has not had any bowel movement for last 2 days. She is on [place] as needed for pain from abdominal distention. Virtual exam Vital Signs Temp Pulse Resp BP Pulse Ox O2 Del Method O2 Flow Rate 97.2 F 86 18 126/68 92 L Nasal Cannula 2 01/30/25 20:00 01/30/25 20:00 01/30/25 20:00 01/30/25 20:00 01/30/25 20:00 01/30/25 20:00 01/30/25 20:00 Objective Labs 01/30/25 04:50 01/30/25 04:50 Labs: Laboratory Results - last 24 hr 01/30/25 01/30/25 04:50 09:50 WBC 7.7 RBC 3.98 L Hgb 9.9 L Hct 31.4 L MCV 79 L MCH 24.9 L MCHC 31.5 RDW Std Deviation 43.0 Plt Count 182 Neut % (Auto) 61 Lymph % (Auto) 19 [place] % (Auto) 13 H Eos % (Auto) 3 Baso % (Auto) 1 Neut # (Auto) 4.7 Lymph # (Auto) 1.5 [place] # (Auto) 1.0 H Eos # (Auto) 0.2 Baso # (Auto) 0.1 Immature Gran # (Auto) 0.18 H Absolute Nucleated RBC 0.00 Immature Gran % 2 H Nucleated RBC % 0 PT 13.0 H INR 1.2 Sodium 139 Potassium 3.3 L Chloride 99 Carbon Dioxide 28.8 Anion Gap 11 BUN 22 Creatinine 1.0 Estim Creat Clear Calc 57.8 L eGFR > 60 BUN/Creatinine Ratio 22 H Glucose 167 H Calculated Osmolality 284 Calcium 9.7 Corrected Calcium 9.9 Phosphorus 3.1 Magnesium 1.3 L Total Bilirubin 1.0 AST 23 ALT 9 L Alkaline Phosphatase 174 H D Ammonia 57 H Total Protein 6.6 Albumin 3.8 Globulin 2.8 Albumin/Globulin Ratio 1.4 ABG Interpretation ABG results: 01/26/25 05:17 VBG pH 7.43 VBG pCO2 37 VBG pO2 59 H VBG Base Excess 0 Assessment & Plan Problem List (1) Hepatic encephalopathy: Status: Acute Assessment and plan: Will continue to monitor her mental status closely Restrict usage of narcotics even though she asks for it for pain control as it can lead to changes with worsening mental status changes and constipation Continue with Lexapro, hold metoclopramide and primidone.
[2025-01-31] VITALS (14 sets, daily range): BP systolic 111–139; BP diastolic 53–75; PULSE 80–96; RESP 12–18; TEMP 36.1–37.1; O2SAT 90–98
[2025-01-31] MEDS: LEVOTHYROXINE SODIUM 112 MCG TABLET PO (05:26)
[2025-01-31] MEDS: LACTULOSE SYRUP 20 GM/30 ML UDC 30 GM PO (05:26)
[2025-01-31 05:41] LABS: Basophils # (Auto) 0.1 Thou/mm3 (0.0-0.2); Basophils % (Auto) 1 % (0-2.5); Eosinophils # (Auto) 0.4 Thou/mm3 (0.0-0.5); Eosinophils % (Auto) 6 % (0-10); Hematocrit 27.5 % (36.0-46.0); Hemoglobin 9.0 g/dL (12.0-16.0); INR 1.2 (0.9-1.3); Immature Granulocytes Auto 0.20 Thou/mm3 (0.00-0.00); Lymphocytes # (Auto) 1.4 Thou/mm3 (1.0-4.8); Lymphocytes % (Auto) 20 % (10-50); Mean Corpuscular HGB Conc 32.7 g/dl (31.0-37.0); Mean Corpuscular Hemoglobin 25.0 pg (25.0-35.0); Mean Corpuscular Volume 76 fL (80-100); Monocytes # (Auto) 0.7 Thou/mm3 (0.0-0.8); Monocytes % (Auto) 10 % (0-12); Neutrophils # (Auto) 4.3 Thou/mm3 (1.8-7.7); Neutrophils % (Auto) 60 % (37-80); Nucleated Red Blood Cell # 0.00 Thou/mm3 (0.00-0.00); Nucleated Red Blood Cell % 0 /100 WBC (0); Platelet Count 196 Thou/mm3 (140-440); Prothrombin Time 13.0 Seconds (9.0-12.2); RDW Standard Deviation 43.4 fL (36.4-46.3); Red Blood Count 3.60 Miln/mm3 (4.00-5.20); White Blood Count 7.1 Thou/mm3 (3.6-11.0)
[2025-01-31 06:31] LABS: Alanine Aminotransferase 10 U/L (10-49); Albumin, Serum 3.6 gm/dL (3.4-4.8); Albumin/Globulin Ratio 1.3 (1.2-2.2); Alkaline Phosphatase 209 U/L (46-116); Anion Gap 8 (7-16); Aspartate Amino Transferase 25 U/L (0-34); BUN/Creatinine Ratio 21 Ratio (12-20); Bilirubin,Total 0.8 mg/dL (0.3-1.2); Blood Urea Nitrogen 25 mg/dL (9-23); Calcium 9.2 mg/dL (8.3-10.6); Calcium (Corrected) 9.5 mg/dL (8.5-10.1); Carbon Dioxide 29.1 mMol/L (20.0-31.0); Chloride 101 mMol/L (98-107); Creatinine (Component) 1.2 mg/dL (0.6-1.3); Estimated Creatinine Clearance 48.2 mL/min (>60); Globulin 2.8 gm/dL (2.3-3.5); Glucose 160 mg/dL (74-106); Magnesium 1.6 mg/dL (1.6-2.6); Osmolality,Calculated 283 (275-295); Phosphorous 3.4 mg/dL (2.4-5.1); Potassium 3.8 mMol/L (3.4-5.1); Sodium 138 mMol/L (136-145); Total Protein 6.4 gm/dL (5.7-8.2); eGFR 50 See Note
[2025-01-31] MEDS: FLUCONAZOLE 100 MG TABLET 400 MG PO (09:07)
[2025-01-31] MEDS: PANTOPRAZOLE 40 MG TABLET PO ×2 (09:07→21:19)
[2025-01-31] MEDS: FOLIC ACID 1 MG TABLET PO (09:08)
[2025-01-31] MEDS: ESCITALOPRAM OXALATE 10 MG TABLET 20 MG PO (09:08)
[2025-01-31] MEDS: FERROUS SULF 325 MG TABLET PO (09:08)
[2025-01-31] MEDS: THIAMINE 100 MG TABLET PO (09:09)
[2025-01-31] MEDS: ASCORBIC ACID 250 MG TABLET PO ×2 (09:09→21:19)
[2025-01-31] MEDS: DOCUSATE SOD 100 MG CAPSULE 200 MG PO (09:09)
[2025-01-31] MEDS: MULTIVITAMINS TABLET 1 TAB PO (09:10)
[2025-01-31] MEDS: SPIRONOLACTONE 25 MG TABLET PO (09:11)
[2025-01-31] MEDS: cefTRIAXone/D5w 1gm IV premix 1 GM/50 ML BAG IV (09:13)
[2025-01-31] MEDS: Magnesium Sulfate 4 GM Ivpb 4 GM/50 ML BAG IV (09:13)
[2025-01-31] MEDS: HEPARIN SOD INJ 5000 UNIT/ML VIAL SC ×2 (09:24→21:19)
[2025-01-31] MEDS: INSULIN LISPRO (AdmeLOG) 1 UNIT/0.01 ML UNIT SC ×4 (09:24→21:19)
[2025-01-31] MEDS: LIOTHYRONINE SOD 5 mCg TABLET 10 MCG PO (09:29)
[2025-01-31 10:11] LABS: Ammonia 23 uMol/L (11-32)
[2025-01-31] MEDS: LACTULOSE SYRUP 20 GM/30 ML UDC 45 GM PO ×3 (12:37→21:19)
[2025-01-31] MEDS: PREGABALIN 75 MG CAPSULE 150 MG PO ×2 (12:37→21:19)
[2025-01-31] MEDS: MIDODRINE 5 MG TABLET PO (12:38)
[2025-01-31] MEDS: ACETAMINOPHEN 325 MG TABLET 650 MG PO ×2 (12:41→22:26)
--- NOTE | 2025-01-31 12:48 | PC.SS ---
Civil Designer (DASHAWN) Lachelle met with patient and her daughter at bedside. Per daughter, after speaking to family, it was decided that the preferred choices for SNF are [facility], [facility] and [facility]. DASHAWN explained the difference between acute rehab and SNF. Family still want to pursue those acute rehabs and SNF in [facility]. DASHAWN reviewed [facility] ([place]LEY: [phone]) which is pending review due to a mental health condition.
--- NOTE | 2025-01-31 14:28 | ESPR_ITS ---
<Statement entered by Erin Tomas MD - 02/01/25 13:23> I personally examined the patient evaluate the patient patient is admitted hospital initially with multiple prolonged seizures troponin elevation ST segment changes she has no chest pain she is much more alert awake not complaining of any other symptoms. She does have type II troponin elevation will require angiogram at some point prior to discharge evaluate the patient with resident physician agree with the treatment plan recommendation as documented. Documentation for date of: 01/31/25 Subjective Subjective Interval history: Patient is seen and examined at bedside No acute overnight events. Still complaining of mild drowsiness and abdominal discomfort, cramps Vitals are stable and heart rate is around 80 to 90 bpm Labs done today showed increase in creatinine from 1-1.2 for which Lasix is kept on hold by the primary team. Able to produce adequate amount of urine output and is on negative balance Recommended to continue to monitor her renal functions and resume diuresis accordingly Exam Vital Signs Temp Pulse Resp BP Pulse Ox O2 Del Method O2 Flow Rate 97.1 F 89 12 111/59 L 96 Nasal Cannula 3 01/31/25 12:00 01/31/25 12:38 01/31/25 12:34 01/31/25 12:38 01/31/25 12:34 01/31/25 12:00 01/31/25 12:34 Narrative Exam GENERAL: A&Ox2, chronically ill appearing, Awake, Not in acute distress NEURO: no focal neurological deficits HEENT: Atraumatic, Normocephalic. mucous membranes moist. Eyes open, symmetrical, & clear HEART: Normal Heart Sounds, regular rate and rhythm LUNGS: no crackles ABDOMEN: moderatly distended abdomen however it is soft, noted tenderness on right side of abdomen EXTREMITIES: no edema noted in LE, no tenderness, able to move all 4 extremities, pedal pulses palpated Objective Labs 01/31/25 05:00 01/31/25 05:00 Labs: Laboratory Results - last 24 hr 01/31/25 01/31/25 05:00 09:30 WBC 7.1 RBC 3.60 L Hgb 9.0 L Hct 27.5 L MCV 76 L MCH 25.0 MCHC 32.7 RDW Std Deviation 43.4 Plt Count 196 Neut % (Auto) 60 Lymph % (Auto) 20 [place] % (Auto) 10 Eos % (Auto) 6 Baso % (Auto) 1 Neut # (Auto) 4.3 Lymph # (Auto) 1.4 [place] # (Auto) 0.7 Eos # (Auto) 0.4 Baso # (Auto) 0.1 Immature Gran # (Auto) 0.20 H Absolute Nucleated RBC 0.00 Immature Gran % 3 H Nucleated RBC % 0 PT 13.0 H INR 1.2 Sodium 138 Potassium 3.8 D Chloride 101 Carbon Dioxide 29.1 Anion Gap 8 BUN 25 H Creatinine 1.2 Estim Creat Clear Calc 48.2 L eGFR 50 L BUN/Creatinine Ratio 21 H Glucose 160 H Calculated Osmolality 283 Calcium 9.2 Corrected Calcium 9.5 Phosphorus 3.4 Magnesium 1.6 Total Bilirubin 0.8 AST 25 ALT 10 Alkaline Phosphatase 209 H D Ammonia 23 Total Protein 6.4 Albumin 3.6 Globulin 2.8 Albumin/Globulin Ratio 1.3 ABG Interpretation ABG results: 01/26/25 05:17 VBG pH 7.43 VBG pCO2 37 VBG pO2 59 H VBG Base Excess 0 Quality Measures Quality Measures VTE prophylaxis Advance care planning discussed with:: patient Assessment & Plan Assessment Current Active Medications: Generic Name Dose Route Start Last Admin Trade Name Freq PRN Reason Stop Dose Admin Acetaminophen 650 mg 01/20/25 16:47 01/31/25 12:41 Acetaminophen 325 Mg Tablet PO 02/19/25 16:46 650 mg Q6H PRN Administration PAIN SCALE 1-3 (mild Acetaminophen 650 mg 01/20/25 16:47 01/24/25 19:47 Acetaminophen 325 Mg Tablet PO 02/19/25 16:46 650 mg Q6H PRN Administration Fever >100.4 Albuterol/Ipratropium 3 ml 01/20/25 18:38 01/29/25 21:46 Albuterol/Ipratropium (Duoneb) Rt Lisset 3 Ml Nebu INH 02/19/25 18:37 3 ml Q6HRRT PRN Administration Wheezing Ascorbic Acid 250 mg 01/29/25 09:00 01/31/25 09:09 Ascorbic Acid 250 Mg Tablet PO 02/28/25 08:59 250 mg BID REYNA Administration Carvedilol 3.125 mg 01/29/25 17:30 01/31/25 09:11 Carvedilol 3.125 Mg Tablet PO 02/28/25 17:29 3.125 mg BIDWM REYNA Administration Dextrose 25 ml 01/20/25 18:39 Dextrose 50%-Water Inj 50 Ml Syringe IV 02/19/25 18:38 Q15MIN PRN BG 50-70 responsive npo pt Dextrose 50 ml 01/20/25 18:39 Dextrose 50%-Water Inj 50 Ml Syringe IV 02/19/25 18:38 Q15MIN PRN BG <50 OR BG <70 & pt unresponsive Docusate Sodium 200 mg 01/24/25 21:00 01/31/25 09:09 Docusate Sod 100 Mg Capsule PO 02/23/25 20:59 200 mg QDAY REYNA Administration Protocol Escitalopram Oxalate 20 mg 01/24/25 16:30 01/31/25 09:08 Escitalopram Oxalate 10 Mg Tablet PO 02/23/25 16:29 20 mg QDAY REYNA Administration Ferrous Sulfate 325 mg 01/21/25 11:30 01/31/25 09:08 Ferrous Sulf 325 Mg Tablet PO 02/20/25 11:29 325 mg QOD REYNA Administration Folic Acid 1 mg 01/29/25 09:00 01/31/25 09:08 Folic Acid 1 Mg Tablet PO 02/28/25 08:59 1 mg QDAY REYNA Administration Furosemide 40 mg 01/30/25 09:30 01/30/25 10:01 Furosemide 40 Mg Tablet PO 03/01/25 09:29 40 mg QDAY REYNA Administration Glucagon 1 mg 01/20/25 18:39 Glucagon Inj 1 Mg Vial IM Q15MIN PRN BG <70, and no IV access Heparin Sodium (Porcine) 5,000 unit 01/20/25 21:00 01/31/25 09:24 Heparin Sod Inj 5000 Unit/Ml Vial SC 02/03/25 20:59 5,000 unit BID REYNA Administration Insulin Human Lispro 0 unit 01/20/25 21:00 01/31/25 12:38 Insulin Lispro (Admelog) 1 Unit/0.01 Ml Unit SC 02/19/25 20:59 2 unit ACHS REYNA Administration Protocol Lactulose 45 gm 01/31/25 12:00 01/31/25 12:37 Lactulose Syrup 20 Gm/30 Ml Udc PO 03/02/25 11:59 45 gm QID REYNA Administration Protocol Levothyroxine Sodium 112 mcg 01/21/25 06:00 01/31/25 05:26 Levothyroxine Sodium 112 Mcg Tablet PO 02/20/25 05:59 112 mcg ACBR REYNA Administration Lidocaine 1 patch 01/21/25 10:22 Lidocaine 5% 1 Patch TOP 02/20/25 10:21 UD PRN Back pain Protocol Liothyronine Sodium 10 mcg 01/25/25 14:15 01/31/25 09:29 Liothyronine Sod 5 Mcg Tablet PO 02/24/25 14:14 10 mcg QDAY REYNA Administration Loratadine 10 mg 01/21/25 09:00 01/31/25 09:08 Loratadine 10 Mg Tablet PO 02/20/25 08:59 10 mg QDAY REYNA Administration Midodrine 5 mg 01/31/25 11:45 01/31/25 12:38 Midodrine 5 Mg Tablet PO 03/02/25 11:44 5 mg TID REYNA Administration Multivitamins 1 tab 01/29/25 09:00 01/31/25 09:10 Multivitamins Tablet PO 02/28/25 08:59 1 tab QDAY REYNA Administration Ondansetron HCl 4 mg 01/20/25 16:47 01/26/25 06:14 Ondansetron Inj 2 Mg/Ml Inj 2 Ml IVP 02/19/25 16:46 4 mg Q6H PRN Administration NAUSEA OR VOMITING Protocol Pantoprazole Sodium 40 mg 01/28/25 09:00 01/31/25 09:07 Pantoprazole 40 Mg Tablet PO 02/27/25 08:59 40 mg BID REYNA Administration Pregabalin 150 mg 01/20/25 21:00 01/31/25 12:37 Pregabalin 75 Mg Capsule PO 02/19/25 20:59 150 mg BID REYNA Administration Rifaximin 550 mg 01/25/25 21:00 01/31/25 09:12 Rifaximin 550 Mg Tablet PO 02/01/25 20:59 550 mg BID REYNA Administration Simethicone 80 mg 01/26/25 08:38 01/30/25 20:42 Simethicone 80 Mg Chew PO 02/25/25 08:37 80 mg QID PRN Administration GAS Spironolactone 25 mg 01/29/25 10:15 01/31/25 09:11 Spironolactone 25 Mg Tablet PO 02/28/25 10:14 25 mg QDAY REYNA Administration Thiamine HCl 100 mg 01/29/25 09:00 01/31/25 09:09 Thiamine 100 Mg Tablet PO 02/28/25 08:59 100 mg QDAY REYNA Administration Zolpidem Tartrate 5 mg 01/25/25 21:00 01/30/25 21:41 Zolpidem 5 Mg Tablet PO 02/23/25 20:59 5 mg HS REYNA Administration Plan Ms. Mario is a 64-year-old female with past medical history significant for decompensated liver cirrhosis (diagnosed in October 2024), COPD on home oxygen, asthma, hypothyroidism, hypertension, type 2 diabetes and anxiety presented to the ED on 01/20/25 complaining of worsening abdominal pain and distention. Cardiology is consulted due to tachycardia and hypotension. #Syncopal episode #Pulmonary arterial hypertension -ruled out #Portal hypertension #Hepatorenal Syndrome #Sinus tachycardia secondary to fevers- resolved #Hypotension -Patient has been in the hospital since 01/20 however since midnight overnight patient has been having sinus tachycardia and fever. Telemetry is reviewed patient is in sinus rhythm. Since patient is a high risk for peritonitis in the setting of end-stage liver disease patient's tachycardia is likely from the fevers indicating possible source of infection. -Low cardiac suspicion for her symptoms right now, patient's hypotension is due to current illness as patient had 8.4 L of fluid removed via paracentesis. EKG: Sinus tachycardia with rate of 120 and QTc 449 Plan: -Continue treating patient's decompensated liver cirrhosis -Continue broad-spectrum IV antibiotics for possible source of infection -Recommended to continue coreg, spironolactone and midodrine as BP tolerated -Recommend albumin with future paracenthesis -Continue low-sodium 2 g diet -Strict ins and outs -Echo showed good cardiac activity with EF >60% and no evidence of PAH #End-stage liver disease #Altered mental status- improved #[id number] type 2 diabetes #Primary hypertension #Hypothyroidism #COPD #Asthma #Anxiety Management as per primary team Patient plan of care was discussed with the router tender, Dr. Thom Beltrán, PGY2
--- NOTE | 2025-01-31 15:07 | PD.RESPRO ---
Documentation for date of: 01/31/25 Subjective Subjective Interval history: No acute overnight events. Encephalopathy again waxing and waning, however appears well this morning after a large bowel rate. Will continue with LACTULOSE. Exam Vital Signs Temp Pulse Resp BP Pulse Ox O2 Del Method O2 Flow Rate 97.1 F 89 12 111/59 L 96 Nasal Cannula 3 01/31/25 12:00 01/31/25 12:38 01/31/25 12:34 01/31/25 12:38 01/31/25 12:34 01/31/25 12:00 01/31/25 12:34 Narrative Exam GENERAL Normal appearing adult female, NAD. HEENT NCAT. GEOVANNI. Oral mucosa is moist. Patent Nares NECK Supple, nontender, no JVD. CHEST RRR, no m/g/r, bilateral inspiratory crackles,no work of breathing, symmetrical expansion. ABDOMEN Soft, moderately distended, mildly tender throughout. No guarding/rebound tenderness/masses. Bowel sounds presents EXTREMITIES No edema/cyanosis. SKIN Warm and dry, no jaundice/rashes. Slightly pale. NEUROMUSCULAR Asterixis bilaterally of upper extremities. Moves all 4 extremities slowly, with full ROM. No focal neurologic deficits. PSYCHIATRY Normal mood and affect, cooperative, no hallucinations Objective Labs 01/31/25 05:00 01/31/25 05:00 Labs: Laboratory Results - last 24 hr 01/31/25 01/31/25 05:00 09:30 WBC 7.1 RBC 3.60 L Hgb 9.0 L Hct 27.5 L MCV 76 L MCH 25.0 MCHC 32.7 RDW Std Deviation 43.4 Plt Count 196 Neut % (Auto) 60 Lymph % (Auto) 20 [place] % (Auto) 10 Eos % (Auto) 6 Baso % (Auto) 1 Neut # (Auto) 4.3 Lymph # (Auto) 1.4 [place] # (Auto) 0.7 Eos # (Auto) 0.4 Baso # (Auto) 0.1 Immature Gran # (Auto) 0.20 H Absolute Nucleated RBC 0.00 Immature Gran % 3 H Nucleated RBC % 0 PT 13.0 H INR 1.2 Sodium 138 Potassium 3.8 D Chloride 101 Carbon Dioxide 29.1 Anion Gap 8 BUN 25 H Creatinine 1.2 Estim Creat Clear Calc 48.2 L eGFR 50 L BUN/Creatinine Ratio 21 H Glucose 160 H Calculated Osmolality 283 Calcium 9.2 Corrected Calcium 9.5 Phosphorus 3.4 Magnesium 1.6 Total Bilirubin 0.8 AST 25 ALT 10 Alkaline Phosphatase 209 H D Ammonia 23 Total Protein 6.4 Albumin 3.6 Globulin 2.8 Albumin/Globulin Ratio 1.3 ABG Interpretation ABG results: 01/26/25 05:17 VBG pH 7.43 VBG pCO2 37 VBG pO2 59 H VBG Base Excess 0 Quality Measures Quality Measures VTE prophylaxis Advance care planning discussed with:: patient Assessment & Plan Assessment Current Active Medications: Generic Name Dose Route Start Last Admin Trade Name Freq PRN Reason Stop Dose Admin Acetaminophen 650 mg 01/20/25 16:47 01/31/25 12:41 Acetaminophen 325 Mg Tablet PO 02/19/25 16:46 650 mg Q6H PRN Administration PAIN SCALE 1-3 (mild Acetaminophen 650 mg 01/20/25 16:47 01/24/25 19:47 Acetaminophen 325 Mg Tablet PO 02/19/25 16:46 650 mg Q6H PRN Administration Fever >100.4 Albuterol/Ipratropium 3 ml 01/20/25 18:38 01/29/25 21:46 Albuterol/Ipratropium (Duoneb) Rt Lisset 3 Ml Nebu INH 02/19/25 18:37 3 ml Q6HRRT PRN Administration Wheezing Ascorbic Acid 250 mg 01/29/25 09:00 01/31/25 09:09 Ascorbic Acid 250 Mg Tablet PO 02/28/25 08:59 250 mg BID REYNA Administration Carvedilol 3.125 mg 01/29/25 17:30 01/31/25 09:11 Carvedilol 3.125 Mg Tablet PO 02/28/25 17:29 3.125 mg BIDWM REYNA Administration Dextrose 25 ml 01/20/25 18:39 Dextrose 50%-Water Inj 50 Ml Syringe IV 02/19/25 18:38 Q15MIN PRN BG 50-70 responsive npo pt Dextrose 50 ml 01/20/25 18:39 Dextrose 50%-Water Inj 50 Ml Syringe IV 02/19/25 18:38 Q15MIN PRN BG <50 OR BG <70 & pt unresponsive Docusate Sodium 200 mg 01/24/25 21:00 01/31/25 09:09 Docusate Sod 100 Mg Capsule PO 02/23/25 20:59 200 mg QDAY REYNA Administration Protocol Escitalopram Oxalate 20 mg 01/24/25 16:30 01/31/25 09:08 Escitalopram Oxalate 10 Mg Tablet PO 02/23/25 16:29 20 mg QDAY REYNA Administration Ferrous Sulfate 325 mg 01/21/25 11:30 01/31/25 09:08 Ferrous Sulf 325 Mg Tablet PO 02/20/25 11:29 325 mg QOD REYNA Administration Folic Acid 1 mg 01/29/25 09:00 01/31/25 09:08 Folic Acid 1 Mg Tablet PO 02/28/25 08:59 1 mg QDAY REYNA Administration Furosemide 40 mg 01/30/25 09:30 01/30/25 10:01 Furosemide 40 Mg Tablet PO 03/01/25 09:29 40 mg QDAY REYNA Administration Glucagon 1 mg 01/20/25 18:39 Glucagon Inj 1 Mg Vial IM Q15MIN PRN BG <70, and no IV access Heparin Sodium (Porcine) 5,000 unit 01/20/25 21:00 01/31/25 09:24 Heparin Sod Inj 5000 Unit/Ml Vial SC 02/03/25 20:59 5,000 unit BID REYNA Administration Insulin Human Lispro 0 unit 01/20/25 21:00 01/31/25 12:38 Insulin Lispro (Admelog) 1 Unit/0.01 Ml Unit SC 02/19/25 20:59 2 unit ACHS REYNA Administration Protocol Lactulose 45 gm 01/31/25 12:00 01/31/25 12:37 Lactulose Syrup 20 Gm/30 Ml Udc PO 03/02/25 11:59 45 gm QID REYNA Administration Protocol Levothyroxine Sodium 112 mcg 01/21/25 06:00 01/31/25 05:26 Levothyroxine Sodium 112 Mcg Tablet PO 02/20/25 05:59 112 mcg ACBR REYNA Administration Lidocaine 1 patch 01/21/25 10:22 Lidocaine 5% 1 Patch TOP 02/20/25 10:21 UD PRN Back pain Protocol Liothyronine Sodium 10 mcg 01/25/25 14:15 01/31/25 09:29 Liothyronine Sod 5 Mcg Tablet PO 02/24/25 14:14 10 mcg QDAY REYNA Administration Loratadine 10 mg 01/21/25 09:00 01/31/25 09:08 Loratadine 10 Mg Tablet PO 02/20/25 08:59 10 mg QDAY REYNA Administration Midodrine 5 mg 01/31/25 11:45 01/31/25 12:38 Midodrine 5 Mg Tablet PO 03/02/25 11:44 5 mg TID REYNA Administration Multivitamins 1 tab 01/29/25 09:00 01/31/25 09:10 Multivitamins Tablet PO 02/28/25 08:59 1 tab QDAY REYNA Administration Ondansetron HCl 4 mg 01/20/25 16:47 01/26/25 06:14 Ondansetron Inj 2 Mg/Ml Inj 2 Ml IVP 02/19/25 16:46 4 mg Q6H PRN Administration NAUSEA OR VOMITING Protocol Pantoprazole Sodium 40 mg 01/28/25 09:00 01/31/25 09:07 Pantoprazole 40 Mg Tablet PO 02/27/25 08:59 40 mg BID REYNA Administration Pregabalin 150 mg 01/20/25 21:00 01/31/25 12:37 Pregabalin 75 Mg Capsule PO 02/19/25 20:59 150 mg BID REYNA Administration Rifaximin 550 mg 01/25/25 21:00 01/31/25 09:12 Rifaximin 550 Mg Tablet PO 02/01/25 20:59 550 mg BID REYNA Administration Simethicone 80 mg 01/26/25 08:38 01/30/25 20:42 Simethicone 80 Mg Chew PO 02/25/25 08:37 80 mg QID PRN Administration GAS Spironolactone 25 mg 01/29/25 10:15 01/31/25 09:11 Spironolactone 25 Mg Tablet PO 02/28/25 10:14 25 mg QDAY REYNA Administration Thiamine HCl 100 mg 01/29/25 09:00 01/31/25 09:09 Thiamine 100 Mg Tablet PO 02/28/25 08:59 100 mg QDAY REYNA Administration Zolpidem Tartrate 5 mg 01/25/25 21:00 01/30/25 21:41 Zolpidem 5 Mg Tablet PO 02/23/25 20:59 5 mg HS REYNA Administration Plan Assessment: 64 year-old female with PMHx of alcoholic liver cirrhosis, COPD on home O2, hypothyroidism, asthma, HTN, T2DM and anxiety who presented to the ED with worsening ascites and abdominal discomfort. Admitted under observation for therapeutic/diagnostic paracentesis. Acute hepatic encephalopathy (improving) Acute decompensated alcoholic liver cirrhosis Intractable ascites (improving) Advanced portal hypertension (stable) Esophageal varices (stable) Subacute bacterial peritonitis (resolved) Significant alcohol use history, cirrhosis diagnosed in 08/2023. Has been on SPIRONOLACTONE, presenting with 1 month of worsening abdominal ascites. Abdominal CT showed cirrhosis, significant ascites, prominent splenomegaly, anasarca, esophageal and perigastric varices, no bowel obstruction. Ultrasound gallbladder showed distended gallbladder, negative for cholelithiasis, mildly thickened gallbladder wall likely from ascites. Anasarca on exam, with 2+ bilateral extremity edema extending above the knee. MELD score 9 equates to 6% mortality in 3 months. Child-Wilhelm score 7, Class B, indication for transplant evaluation. Paracentesis removed 8.4 L fluids, ALBUMIN was given pre and post para. Paracentesis analysis: WBC 202, peritoneal RBC 1000, total protein 4, albumin 2.2, LD H108, glucose 137, amylase 29 SAAG < 1.1 g/dL Portal hypertension is not necessarily the cause of ascites Ultrasound guided paracentesis removed 4550 cc of fluid Abdominal ultrasound 01/28/2025 showed minimal ascites MELD-Na Score (01/28/2025) 12 points, <2% mortality estimated 90 day mortality Completed 10 days of CEFTRIAXONE for SBP prophylaxis with the addition of few days of FLUCONAZOLE. Afebrile, no leukocytosis ? Holding diuresis for now given slightly worsening kidney function. ? Continue MIDODRINE 5 mg TID ? Continue rifaximin BID ? Continue LACTULOSE, goal 3?5 BMs daily ? Continue SPIRONOLACTONE 25 mg daily ? Consider resuming LASIX when able ? Encourage oral intake ? Fluid restriction ? Sodium restriction of 2 g/day Possible polypharmacy Hx anxiety She is on multiple anxiolytics. Neurology is following, URSULA showed diffuse slowing c/w hepatic encephalopathy ? Holding home PRIMIDONE, ZOLPIDEM in settings of acute encephalopathy. ? Continue home LEXAPRO daily ? Continue home LYRICA BID Constipation?improving Abdominal distention? improving Patient has not had a bowel movement in a few days KUB showed large stool in rectosigmoid, few air distended small bowel loop CT abdomen pelvis 01/26/25 Cirrhosis with moderate ascites Significant splenomegaly Esophageal and perigastric varices Suspicious for ischemic right colon Small bowel obstruction pattern Recommend surgical consultation AXR 01/30/25 Moderate air and stool throughout the colon including rectum. Mild to moderate air distended small bowel loops in the left abdomen No free air ? LACTULOSE as above Acute kidney injury - resolved Prerenal 2/2 to hypotention ?Hepatorenal syndrome Likely secondary to constipation Baseline Cr 0.9 ? Holding diuresis for now ? Monitor renal panel ? Renally dose meds, avoid overdiuresis and NEPHROTOXINS Hypothyroidism TSH 2.33 Free T4 1.15 Thyroxine T3 48.2 Free T3 0.8 Patient was taking liothyronine 20 mcg daily but was not started in hospital - Liothyronine 10 mcg daily started today, half of patient's home dose ? Levothyroxine 112 mcg daily Microcytic anemia (stable) Grade 1 esophageal varices Mild thrombocytopenia (resolved) Hgb 8.9, baseline 11.4. Likely iron deficiency versus cirrhosis. CT showed esophageal and perigastric varices. Reports chronic, recurrent hemorrhoidal bleed, but denies dark stool or upper GI bleed. Had an EGD last year and was abnormal. She is on a 5-year colonoscopy scheduled for colonic polyps, last colonoscopy 5 years ago. B12 and folate WNL. Iron stores are low. EGD showed grade 1 lower third esophageal varices, moderate patchy hemorrhagic characteristic of the gastric antrum. GI recommended outpatient colonoscopy. Hemoglobin stable. ? Transfuse if Hgb less than 8 ? Will need PROPRANOLOL for variceal prophylaxis, if BP can tolerate ? Continue daily oral iron supplements HTN Asymptomatic sinus bradycardia Currently BP soft, normocardic. EKG shows sinus bradycardia, likely cirrhosis related on oral dysfunction versus BETA-BLOCKERS. ? Continue home LEVOTHYROXINE 112 mcg AC BR ? Consider resume home METOPROLOL when able COPD, asthma Chronic respiratory failure, on home 2 L O2 No signs of asthma or COPD exacerbation ? DuoNebs q.6h. PRN ? Will discharge on TRELEGY T2DM A1c 7.7 from 08/2024. ? INSULIN sliding scale ? Accu-Cheks Electrolyte abnormalities ? Daily labs, replete as needed Health maintenance Diet: Renal diet GI prophylaxis: PROTONIX DVT prophylaxis: HEPARIN subcu Antibiotics: No addition CODE STATUS: Full code Case was discussed with attending physician. Keith Daly DO PGY II This document was transcribed using voice recognition technology. Minor inaccuracies may be present. Attending Provider Attestation/Addendum I attest that I was physically present for the evaluation, physical examination, lab and imaging review of the patient with the residents. I discussed the case with the residents and agree with the findings and plans of care as documented above. At bedside today, patient is more alert and awake, seems oriented, able to answer questions and follow commands appropriately. She had a large bowel movement this morning, ammonia level has improved. Continues to have mild distention of abdomen but is soft and nontender. Kidney function remains stable, creatinine of 1.2 today. Patient has not had good oral intake, we will hold Lasix for now. Will continue with lactulose 45 4 times daily, discontinue her opioid medication and switch to NSAIDs. Noted to have low magnesium, repleted accordingly. Salvador Sim MD
--- NOTE | 2025-01-31 17:54 | PD.IMPROG ---
Documentation for date of: 01/31/25 Subjective Subjective Interval history: 64 years old female evaluated she complains of abdominal distention and is uncomfortable Last paracentesis on 01/27/2025 KUB done yesterday showed some dilatation of the small bowel and stool in the right colon but no signs of any obstruction My recommendation is which I have already ordered PT, PTT in the morning along with CBC Albumin 25 g 25% to be given just prior to or during the paracentesis And large-volume paracentesis ultrasound-guided ordered for tomorrow Exam Vital Signs Temp Pulse Resp BP Pulse Ox O2 Del Method O2 Flow Rate 98.7 F 87 13 111/53 L 93 L Nasal Cannula 1 01/31/25 16:00 01/31/25 17:20 01/31/25 16:00 01/31/25 17:20 01/31/25 16:00 01/31/25 16:00 01/31/25 16:00 Objective Labs 01/31/25 05:00 01/31/25 05:00 Labs: Laboratory Results - last 24 hr 01/31/25 01/31/25 05:00 09:30 WBC 7.1 RBC 3.60 L Hgb 9.0 L Hct 27.5 L MCV 76 L MCH 25.0 MCHC 32.7 RDW Std Deviation 43.4 Plt Count 196 Neut % (Auto) 60 Lymph % (Auto) 20 [place] % (Auto) 10 Eos % (Auto) 6 Baso % (Auto) 1 Neut # (Auto) 4.3 Lymph # (Auto) 1.4 [place] # (Auto) 0.7 Eos # (Auto) 0.4 Baso # (Auto) 0.1 Immature Gran # (Auto) 0.20 H Absolute Nucleated RBC 0.00 Immature Gran % 3 H Nucleated RBC % 0 PT 13.0 H INR 1.2 Sodium 138 Potassium 3.8 D Chloride 101 Carbon Dioxide 29.1 Anion Gap 8 BUN 25 H Creatinine 1.2 Estim Creat Clear Calc 48.2 L eGFR 50 L BUN/Creatinine Ratio 21 H Glucose 160 H Calculated Osmolality 283 Calcium 9.2 Corrected Calcium 9.5 Phosphorus 3.4 Magnesium 1.6 Total Bilirubin 0.8 AST 25 ALT 10 Alkaline Phosphatase 209 H D Ammonia 23 Total Protein 6.4 Albumin 3.6 Globulin 2.8 Albumin/Globulin Ratio 1.3 Impressions Impression: Decompensated chronic liver disease with advanced portal hypertension and intractable ascites Abdominal distention secondary to above Plan As in the HPI ABG Interpretation ABG results: 01/26/25 05:17 VBG pH 7.43 VBG pCO2 37 VBG pO2 59 H VBG Base Excess 0 Assessment & Plan A&P Narrative # Decompensated alcoholic liver disease with advanced portal hypertension esophageal varices and intractable ascites Plan Agree with the IV Lasix Agree with IV albumin Add spironolactone 25 mg p.o. twice daily Scheduled for therapeutic paracentesis Monitor renal function closely Consent obtained for fiberoptic esophagogastroduodenoscopy with possible biopsy possible therapeutic intervention for prophylactic band ligation of the esophageal varices Agree with IV ceftriaxone for the possibility of subacute bacterial peritonitis Will follow the patient Other medical problems include COPD on home oxygen 2 L nasal cannula Essential hypertension Hypothyroidism Hyperlipidemia Thank you very much for the opportunity to participate in care of this patient Time Spent With Patient Time: Total time spent is greater than 50% in coordination of care (as documented) at patient's floor/unit and/or counseling patient:
--- NOTE | 2025-01-31 18:14 | PC.NURSE ---
made aware the pt is c/o pain. pt is to have a paracentesis tomorrow per Dr. Nagy. to review pt chart before placing any orders for pain meds.
[2025-01-31] MEDS: MORPHINE SULF INJ 10 MG/ML VIAL 2 MG IVP (18:36)
[2025-01-31] MEDS: ONDANSETRON INJ 2 MG/ML INJ 2 ML 4 MG IVP (21:20)
--- NOTE | 2025-01-31 22:27 | PD.NEUROPROG ---
Documentation for date of: 01/31/25 Subjective Subjective Interval history: Patient was seen in telemetry today. She complains of abdominal pain from distention and is asking for [place] which was discontinued recently. She she did have bowel movements x 4 today. Exam - Neurology Vital Signs Temp Pulse Resp BP Pulse Ox O2 Del Method O2 Flow Rate 97.3 F 96 15 139/75 H 98 Nasal Cannula 1 01/31/25 19:55 01/31/25 21:35 01/31/25 19:55 01/31/25 21:35 01/31/25 19:55 01/31/25 19:55 01/31/25 19:55 Narrative Exam GENERAL APPEARANCE: Well hydrated, well-nourished in no acute distress. HEENT: Normocephalic, atraumatic, extraocular movements intact. Pupils: Equal reacting to light and accommodation NECK: Supple, no JVD or bruits. CARDIOVASULAR: Heart: S1, S2 heard, regular without S3-S4 or murmur no rubs or gallops. LUNGS/CHEST: Clear to auscultation bilaterally. No rails, rhonchi, or wheezing. Normal inspection. ABDOMEN: Distended with ascites EXTREMITIES: Normal inspection and palpation. No edema, clubbing or cyanosis. SKIN: Warm and dry without rashes. Normal inspection. MUSCULOSKELETAL: No cervical, thoracic, lumbar or midline bony tenderness. Normal inspection. NEURO: Alert, awake and oriented x3. Cranial nerves: II through XII grossly intact. Speech and language: Normal with no dysarthria or dysphasia. Motor system: Tone and bulk: Normal: Strength: 5 out of 5 in all 4 extremities; No pronator drift noted. Deep tendon reflexes: 2+ bilaterally symmetrical. Plantar reflex: Downgoing bilaterally. Sensory system: Intact to all modalities of sensation bilaterally. Coordination: Intact to [id number] and [id number] test bilaterally. No ataxia, no dysmetria, or dysdiadochokinesia noted. No intention tremors noted. Gait: Not tested. No signs of meningeal irritation noted. PSYCHIATRIC: Normal mood and affect. Objective Labs 01/31/25 05:00 01/31/25 05:00 Labs: Laboratory Results - last 24 hr 01/31/25 01/31/25 05:00 09:30 WBC 7.1 RBC 3.60 L Hgb 9.0 L Hct 27.5 L MCV 76 L MCH 25.0 MCHC 32.7 RDW Std Deviation 43.4 Plt Count 196 Neut % (Auto) 60 Lymph % (Auto) 20 [place] % (Auto) 10 Eos % (Auto) 6 Baso % (Auto) 1 Neut # (Auto) 4.3 Lymph # (Auto) 1.4 [place] # (Auto) 0.7 Eos # (Auto) 0.4 Baso # (Auto) 0.1 Immature Gran # (Auto) 0.20 H Absolute Nucleated RBC 0.00 Immature Gran % 3 H Nucleated RBC % 0 PT 13.0 H INR 1.2 Sodium 138 Potassium 3.8 D Chloride 101 Carbon Dioxide 29.1 Anion Gap 8 BUN 25 H Creatinine 1.2 Estim Creat Clear Calc 48.2 L eGFR 50 L BUN/Creatinine Ratio 21 H Glucose 160 H Calculated Osmolality 283 Calcium 9.2 Corrected Calcium 9.5 Phosphorus 3.4 Magnesium 1.6 Total Bilirubin 0.8 AST 25 ALT 10 Alkaline Phosphatase 209 H D Ammonia 23 Total Protein 6.4 Albumin 3.6 Globulin 2.8 Albumin/Globulin Ratio 1.3 ABG Interpretation ABG results: 01/26/25 05:17 VBG pH 7.43 VBG pCO2 37 VBG pO2 59 H VBG Base Excess 0 Assessment & Plan Assessment and plan (1) Hepatic encephalopathy: Status: Acute Assessment and plan: Resolving Continue to monitor her closely and restrict the use of opiates Patient might need paracentesis as the abdominal distention gets worse.
[2025-02-01] VITALS (13 sets, daily range): BP systolic 116–148; BP diastolic 53–76; PULSE 77–99; RESP 13–93; TEMP 36.1–36.8; O2SAT 90–99
[2025-02-01] MEDS: MORPHINE SULF INJ 10 MG/ML VIAL 2 MG IVP (00:17)
[2025-02-01] MEDS: SCOPOLAMINE 1 MG TDSY TOP (00:17)
[2025-02-01] MEDS: LEVOTHYROXINE SODIUM 112 MCG TABLET PO (05:09)
[2025-02-01] MEDS: LACTULOSE SYRUP 20 GM/30 ML UDC 45 GM PO (05:09)
[2025-02-01 06:27] LABS: Basophils # (Auto) 0.1 Thou/mm3 (0.0-0.2); Basophils % (Auto) 1 % (0-2.5); Eosinophils # (Auto) 0.4 Thou/mm3 (0.0-0.5); Eosinophils % (Auto) 4 % (0-10); Hematocrit 30.3 % (36.0-46.0); Hemoglobin 9.8 g/dL (12.0-16.0); Immature Granulocytes Auto 0.20 Thou/mm3 (0.00-0.00); Lymphocytes # (Auto) 1.5 Thou/mm3 (1.0-4.8); Lymphocytes % (Auto) 16 % (10-50); Mean Corpuscular HGB Conc 32.3 g/dl (31.0-37.0); Mean Corpuscular Hemoglobin 25.1 pg (25.0-35.0); Mean Corpuscular Volume 78 fL (80-100); Monocytes # (Auto) 0.7 Thou/mm3 (0.0-0.8); Monocytes % (Auto) 7 % (0-12); Neutrophils # (Auto) 6.3 Thou/mm3 (1.8-7.7); Neutrophils % (Auto) 69 % (37-80); Nucleated Red Blood Cell # 0.00 Thou/mm3 (0.00-0.00); Nucleated Red Blood Cell % 0 /100 WBC (0); Platelet Count 243 Thou/mm3 (140-440); RDW Standard Deviation 44.1 fL (36.4-46.3); Red Blood Count 3.91 Miln/mm3 (4.00-5.20); White Blood Count 9.1 Thou/mm3 (3.6-11.0)
[2025-02-01 06:38] LABS: INR 1.2 (0.9-1.3); Partial Thromboplastin Time 27.1 Seconds (22.0-36.0); Prothrombin Time 12.7 Seconds (9.0-12.2)
--- NOTE | 2025-02-01 06:39 | PC.RT ---
PT TRIED ON RA SPO2 DROPPED TO 84%, PLACED BACK ON 1LPM NC
[2025-02-01 06:47] LABS: Alanine Aminotransferase 10 U/L (10-49); Albumin, Serum 3.8 gm/dL (3.4-4.8); Albumin/Globulin Ratio 1.4 (1.2-2.2); Alkaline Phosphatase 212 U/L (46-116); Anion Gap 10 (7-16); Aspartate Amino Transferase 24 U/L (0-34); BUN/Creatinine Ratio 14 Ratio (12-20); Bilirubin,Total 0.6 mg/dL (0.3-1.2); Blood Urea Nitrogen 24 mg/dL (9-23); Calcium 10.1 mg/dL (8.3-10.6); Calcium (Corrected) 10.3 mg/dL (8.5-10.1); Carbon Dioxide 30.2 mMol/L (20.0-31.0); Chloride 100 mMol/L (98-107); Creatinine (Component) 1.7 mg/dL (0.6-1.3); Estimated Creatinine Clearance 34.0 mL/min (>60); Globulin 2.8 gm/dL (2.3-3.5); Glucose 172 mg/dL (74-106); Magnesium 2.0 mg/dL (1.6-2.6); Osmolality,Calculated 287 (275-295); Phosphorous 4.1 mg/dL (2.4-5.1); Potassium 3.7 mMol/L (3.4-5.1); Sodium 140 mMol/L (136-145); Total Protein 6.6 gm/dL (5.7-8.2); eGFR 33 See Note
[2025-02-01 07:44] LABS: Vitamin D,1,25 (OH)2,Total 20 pg/mL (18-72); Vitamin D2, 1,25 (OH)2 <8 pg/mL; Vitamin D3, 1,25 (OH)2 20 pg/mL
[2025-02-01] MEDS: FOLIC ACID 1 MG TABLET PO (08:07)
[2025-02-01] MEDS: ACETAMINOPHEN 325 MG TABLET 650 MG PO (08:07)
[2025-02-01] MEDS: DOCUSATE SOD 100 MG CAPSULE 200 MG PO (08:08)
[2025-02-01] MEDS: PREGABALIN 75 MG CAPSULE 150 MG PO (08:08)
[2025-02-01] MEDS: ASCORBIC ACID 250 MG TABLET PO ×2 (08:08→20:32)
[2025-02-01] MEDS: THIAMINE 100 MG TABLET PO (08:08)
[2025-02-01] MEDS: ESCITALOPRAM OXALATE 10 MG TABLET 20 MG PO (08:08)
[2025-02-01] MEDS: PANTOPRAZOLE 40 MG TABLET PO ×2 (08:08→20:32)
[2025-02-01] MEDS: MULTIVITAMINS TABLET 1 TAB PO (08:08)
[2025-02-01] MEDS: HEPARIN SOD INJ 5000 UNIT/ML VIAL SC ×2 (08:09→20:29)
[2025-02-01] MEDS: INSULIN LISPRO (AdmeLOG) 1 UNIT/0.01 ML UNIT SC ×4 (08:09→20:29)
[2025-02-01] MEDS: ALBUMIN HUMAN 25% IVPB 12.5 GM/50 ML BTL IV (08:09)
[2025-02-01 08:13] LABS: T3,Total* 34 ng/dL (76-181)
--- NOTE | 2025-02-01 10:53 | EKG_ITS ---
[facility] Test Date: 2025-02-01 Pat Name: SHU RAMÍREZ [facility] Gender[facility] Female Section Gang: LY : 1960 Requested By: Keith Daly Order Number: [id number] Reading MD: Keith Daly Measurements Intervals [place] Rate: 81 P: 60 NH: 188 QRS: 29 QRSD: 103 T: 20 QT: 408 QTc: 476 Interpretive Statements SINUS RHYTHM POSSIBLE ANTERIOR MYOCARDIAL INFARCTION , PROBABLY OLD Compared to ECG 01/24/2025 11:58:50 Sinus tachycardia no longer present Myocardial infarct finding still present /store/S0/[id number].pdf
--- NOTE | 2025-02-01 10:56 | XR_ITS ---
Examination: Abdomen sonogram Limited TECHNIQUE: Limited transabdominal sonographic images abdomen Date and time: February 01, 2025 1236 hours INDICATIONS: Increasing distention this week FINDINGS: Mild ascites. IMPRESSION: Mild ascites
--- NOTE | 2025-02-01 11:04 | PC.SS ---
Follow up note: SS spoke to daughter, Marizol, regarding any changes in their discharge plan preference. Daughter states she spoke to remaining family members and they mostly live in [place], so they prefer acute in [place] or SNF. SS re-sent referrals to those facilities. [place] acute rehab is pending insurance verification. SS will follow up with family this afternoon.
[2025-02-01] MEDS: LIOTHYRONINE SOD 5 mCg TABLET 10 MCG PO (11:07)
[2025-02-01] MEDS: LACTULOSE SYRUP 20 GM/30 ML UDC 60 GM PO (11:07)
[2025-02-01] MEDS: ALBUMIN HUMAN 25% IVPB 25 GM/100 ML BTL IV (11:07)
[2025-02-01] MEDS: RINGERS LACTATED 1000 ML 250 ML 80 ML IV (11:08)
[2025-02-01 11:15] LABS: LDH (Lactate Dehydrogenase) 123 U/L (120-246)
--- NOTE | 2025-02-01 11:30 | ESPR_ITS ---
<Statement entered by Keith Daly MD - 02/01/25 17:23> In summary: 64-year-old female PMHx of alcoholic liver cirrhosis, COPD, hypothyroidism, HTN, T2DM, and anxiety admitted for decompensated liver cirrhosis with significant ascites. Initially she had 8.4 L peritoneal fluid removed and continued on diuresis, ALBUMIN was started on admission. On the second day of hospitalization, she developed worsening hepatic encephalopathy, and new onset myoclonus and random jerks in all extremities. This was investigated with neurology on board. She takes several anxiolytics at home including AMBIEN, LYRICA, SSRI, PRIMIDONE. Some of these medications were resumed by neurology however given persistent, although improving, encephalopathy, we have discontinued this medication. Also while at the hospital she had transient lactic acidosis and DONNA which resolved with continued ALBUMIN therapy and after stopping DIURETICS. However we resumed DIURETICS yesterday and she appears to have developed a new DONNA with creatinine 1.7. We had held DIURETICS again, started 250 cc lactated Ringer's, and continued daily ALBUMIN infusions. Overall, she continues to make progress in terms of hepatic encephalopathy, although slowly. She is working well with physical therapy, now able to ambulate and walk 4 steps with help. Oral intake remain inadequate 2/2 poor appetite and constipation. On the note, she had good response to LACTULOSE MO, however only having maximum 2 bowel movements with oral LACTULOSE 45 mg QID. We've discontinued LACTULOSE for now and initiated GOLYTELY x 1. Will resume LACTULOSE once clear. Continued on rifaximin as well. Terms of blood pressure, she had good response to MIDODRINE TID which was then switched to PRN. Currently BP on the softer side at 116/55 and CARVEDILOL was held. We will decide based on blood pressure whether to continue with MIDODRINE or restart CARVEDILOL. Additional findings: * EGD showed grade 1 esophageal varices without active bleeding. She had multiple RR for AMS with negative workup including head CT. * She completed full course of ANTIBIOTICS and a few days of FLUCONAZOLE for suspected SBP in settings of transient fever and leukocytosis. Although peritoneal fluid analysis was negative for SBP. Based on PMN count and negative cultures including blood and peritoneal fluid. However, we were informed by the lab that peritoneal sample was old, stat for 2 days before it was processed. Nonetheless she does need additional paracentesis and will order peritoneal dialysis with that as well. * General surgery was on board for suspected SBO and right colonic bowel ischemia, however surgery did not feel like patient met these criteria, no intervention was done. He was continued on LACTULOSE. * She was on very high dose of home thyroid medication including LEVOTHYROXINE and liothyronine 20 daily. Will curbside with endocrinology who recommended continuing LEVOTHYROXINE and starting liothyronine at 10 mEq daily. Labs showed normal TSH, free T4, but again low T3. Will need endocrinology follow- up outpatient for thyroid normal replacement. * Additionally, we had attempted transfer for hepatology services but she was declined. We told she would be a candidate only for refractory ascites or TIPS which is not indicated at this time. I?ve reviewed the note and agree with the resident's assessment and plan, with the exceptions outlined above. I personally went over the labs, imaging, home medications, and prior records, and examined the patient. The case was also reviewed with the attending physician. This document was transcribed using voice recognition technology. Minor inaccuracies may be present. Keith Daly DO PGY II Documentation for date of: 02/01/25 Subjective Subjective Interval history: Patient seen at bedside. No acute overnight events. Patient had 1 bowel movement yesterday. Patient is not eating. No worsening abdominal pain or distention no nausea, no vomiting, no chest pain, no shortness of breath. Exam Vital Signs Temp Pulse Resp BP Pulse Ox O2 Del Method O2 Flow Rate 97.1 F 92 15 116/66 91 L Nasal Cannula 1 02/01/25 08:00 02/01/25 08:08 02/01/25 08:00 02/01/25 08:08 02/01/25 08:00 02/01/25 08:00 02/01/25 08:00 Narrative Exam GENERAL Normal appearing adult female, NAD. HEENT NCAT. GEOVANNI. Oral mucosa is moist. Patent Nares NECK Supple, nontender, no JVD. CHEST RRR, no m/g/r, bilateral inspiratory crackles,no work of breathing, symmetrical expansion. ABDOMEN Soft, moderately distended, mildly tender throughout. No guarding/rebound tenderness/masses. Bowel sounds presents EXTREMITIES No edema/cyanosis. SKIN Warm and dry, no jaundice/rashes. Slightly pale. NEUROMUSCULAR Asterixis bilaterally of upper extremities. Moves all 4 extremities slowly, with full ROM. No focal neurologic deficits. PSYCHIATRY Normal mood and affect, cooperative, no hallucinations Objective Labs 02/01/25 05:05 02/01/25 05:05 Labs: Laboratory Results - last 24 hr 01/25/25 01/26/25 02/01/25 11:23 05:17 05:05 WBC 9.1 RBC 3.91 L Hgb 9.8 L Hct 30.3 L MCV 78 L MCH 25.1 MCHC 32.3 RDW Std Deviation 44.1 Plt Count 243 D Neut % (Auto) 69 Lymph % (Auto) 16 [place] % (Auto) 7 Eos % (Auto) 4 Baso % (Auto) 1 Neut # (Auto) 6.3 Lymph # (Auto) 1.5 [place] # (Auto) 0.7 Eos # (Auto) 0.4 Baso # (Auto) 0.1 Immature Gran # (Auto) 0.20 H Absolute Nucleated RBC 0.00 Immature Gran % 2 H Nucleated RBC % 0 PT 12.7 H INR 1.2 APTT 27.1 Sodium 140 Potassium 3.7 Chloride 100 Carbon Dioxide 30.2 Anion Gap 10 BUN 24 H Creatinine 1.7 H D Estim Creat Clear Calc 34.0 L eGFR 33 L BUN/Creatinine Ratio 14 Glucose 172 H Calculated Osmolality 287 Calcium 10.1 Corrected Calcium 10.3 H Phosphorus 4.1 Magnesium 2.0 Total Bilirubin 0.6 AST 24 ALT 10 Alkaline Phosphatase 212 H Lactate Dehydrogenase 123 Total Protein 6.6 Albumin 3.8 Globulin 2.8 Albumin/Globulin Ratio 1.4 Vit D 1,25-Dihyd Total 20 1,25 Dihydroxy Vit D2 <8 1,25 Dihydroxy Vit D3 20 Total T3 34 L ABG Interpretation ABG results: 01/26/25 05:17 VBG pH 7.43 VBG pCO2 37 VBG pO2 59 H VBG Base Excess 0 Quality Measures Quality Measures VTE prophylaxis Advance care planning discussed with:: patient Assessment & Plan Assessment Current Active Medications: Generic Name Dose Route Start Last Admin Trade Name Freq PRN Reason Stop Dose Admin Acetaminophen 650 mg 01/20/25 16:47 02/01/25 08:07 Acetaminophen 325 Mg Tablet PO 02/19/25 16:46 650 mg Q6H PRN Administration PAIN SCALE 1-3 (mild Acetaminophen 650 mg 01/20/25 16:47 01/24/25 19:47 Acetaminophen 325 Mg Tablet PO 02/19/25 16:46 650 mg Q6H PRN Administration Fever >100.4 Albuterol/Ipratropium 3 ml 01/20/25 18:38 01/29/25 21:46 Albuterol/Ipratropium (Duoneb) Rt Lisset 3 Ml Nebu INH 02/19/25 18:37 3 ml Q6HRRT PRN Administration Wheezing Ascorbic Acid 250 mg 01/29/25 09:00 02/01/25 08:08 Ascorbic Acid 250 Mg Tablet PO 02/28/25 08:59 250 mg BID REYNA Administration Carvedilol 3.125 mg 01/29/25 17:30 02/01/25 08:08 Carvedilol 3.125 Mg Tablet PO 02/28/25 17:29 3.125 mg BIDWM REYNA Administration Dextrose 25 ml 01/20/25 18:39 Dextrose 50%-Water Inj 50 Ml Syringe IV 02/19/25 18:38 Q15MIN PRN BG 50-70 responsive npo pt Dextrose 50 ml 01/20/25 18:39 Dextrose 50%-Water Inj 50 Ml Syringe IV 02/19/25 18:38 Q15MIN PRN BG <50 OR BG <70 & pt unresponsive Docusate Sodium 200 mg 01/24/25 21:00 02/01/25 08:08 Docusate Sod 100 Mg Capsule PO 02/23/25 20:59 200 mg QDAY REYNA Administration Protocol Dronabinol 2.5 mg 02/01/25 11:00 02/01/25 11:07 Dronabinol 2.5 Mg Capsule PO 03/03/25 10:59 2.5 mg QDAY REYNA Administration Escitalopram Oxalate 20 mg 01/24/25 16:30 02/01/25 08:08 Escitalopram Oxalate 10 Mg Tablet PO 02/23/25 16:29 20 mg QDAY REYNA Administration Ferrous Sulfate 325 mg 01/21/25 11:30 01/31/25 09:08 Ferrous Sulf 325 Mg Tablet PO 02/20/25 11:29 325 mg QOD REYNA Administration Folic Acid 1 mg 01/29/25 09:00 02/01/25 08:07 Folic Acid 1 Mg Tablet PO 02/28/25 08:59 1 mg QDAY REYNA Administration Furosemide 40 mg 01/30/25 09:30 01/30/25 10:01 Furosemide 40 Mg Tablet PO 03/01/25 09:29 40 mg QDAY REYNA Administration Glucagon 1 mg 01/20/25 18:39 Glucagon Inj 1 Mg Vial IM Q15MIN PRN BG <70, and no IV access Heparin Sodium (Porcine) 5,000 unit 01/20/25 21:00 02/01/25 08:09 Heparin Sod Inj 5000 Unit/Ml Vial SC 02/03/25 20:59 5,000 unit BID REYNA Administration Albumin Human 12.5 gm in 50 mls @ 100 mls/hr 02/01/25 07:53 02/01/25 08:23 Albuminar-25 Ivpb IV 03/03/25 07:52 Not Given QDAY REYNA Lactated Ringer's 250 mls @ 80 mls/hr 02/01/25 10:49 02/01/25 11:08 Lactated Ringers IV 02/01/25 13:56 80 mls/hr .Q3H8M REYNA Administration Albumin Human 25 gm in 100 mls @ 100 mls/hr 02/01/25 10:55 02/01/25 11:07 Albuminar-25 Ivpb IV 02/01/25 11:54 100 mls/hr X1 ONE Administration Insulin Human Lispro 0 unit 01/20/25 21:00 02/01/25 08:09 Insulin Lispro (Admelog) 1 Unit/0.01 Ml Unit SC 02/19/25 20:59 1 unit ACHS REYNA Administration Protocol Lactulose 60 gm 02/01/25 12:00 02/01/25 11:07 Lactulose Syrup 20 Gm/30 Ml Udc PO 03/03/25 11:59 60 gm QID REYNA Administration Protocol Levothyroxine Sodium 112 mcg 01/21/25 06:00 02/01/25 05:09 Levothyroxine Sodium 112 Mcg Tablet PO 02/20/25 05:59 112 mcg ACBR REYNA Administration Lidocaine 1 patch 01/21/25 10:22 Lidocaine 5% 1 Patch TOP 02/20/25 10:21 UD PRN Back pain Protocol Liothyronine Sodium 10 mcg 01/25/25 14:15 02/01/25 11:07 Liothyronine Sod 5 Mcg Tablet PO 02/24/25 14:14 10 mcg QDAY REYNA Administration Loratadine 10 mg 01/21/25 09:00 02/01/25 08:06 Loratadine 10 Mg Tablet PO 02/20/25 08:59 10 mg QDAY REYNA Administration Melatonin 3 mg 02/01/25 00:05 Melatonin 3 Mg Tablet PO 03/03/25 00:04 HS PRN INSOMNIA Midodrine 5 mg 01/31/25 11:45 02/01/25 05:09 Midodrine 5 Mg Tablet PO 03/02/25 11:44 Not Given TID REYNA Multivitamins 1 tab 01/29/25 09:00 02/01/25 08:08 Multivitamins Tablet PO 02/28/25 08:59 1 tab QDAY REYNA Administration Ondansetron HCl 4 mg 01/20/25 16:47 01/31/25 21:20 Ondansetron Inj 2 Mg/Ml Inj 2 Ml IVP 02/19/25 16:46 4 mg Q6H PRN Administration NAUSEA OR VOMITING Protocol Pantoprazole Sodium 40 mg 01/28/25 09:00 02/01/25 08:08 Pantoprazole 40 Mg Tablet PO 02/27/25 08:59 40 mg BID REYNA Administration Pregabalin 150 mg 01/20/25 21:00 02/01/25 08:08 Pregabalin 75 Mg Capsule PO 02/19/25 20:59 150 mg BID REYNA Administration Rifaximin 550 mg 01/25/25 21:00 02/01/25 08:06 Rifaximin 550 Mg Tablet PO 02/01/25 20:59 550 mg BID REYNA Administration Simethicone 80 mg 01/26/25 08:38 01/30/25 20:42 Simethicone 80 Mg Chew PO 02/25/25 08:37 80 mg QID PRN Administration GAS Spironolactone 25 mg 01/29/25 10:15 01/31/25 09:11 Spironolactone 25 Mg Tablet PO 02/28/25 10:14 25 mg QDAY REYNA Administration Thiamine HCl 100 mg 01/29/25 09:00 02/01/25 08:08 Thiamine 100 Mg Tablet PO 02/28/25 08:59 100 mg QDAY REYNA Administration Zolpidem Tartrate 5 mg 01/25/25 21:00 01/30/25 21:41 Zolpidem 5 Mg Tablet PO 02/23/25 20:59 5 mg HS REYNA Administration Plan Assessment: 64 year-old female with PMHx of alcoholic liver cirrhosis, COPD on home O2, hypothyroidism, asthma, HTN, T2DM and anxiety who presented to the ED with worsening ascites and abdominal discomfort. Admitted under observation for therapeutic/diagnostic paracentesis. Acute hepatic encephalopathy (improving) Acute decompensated alcoholic liver cirrhosis Intractable ascites (improving) Advanced portal hypertension (stable) Esophageal varices (stable) Subacute bacterial peritonitis (resolved) Significant alcohol use history, cirrhosis diagnosed in 08/2023. Has been on SPIRONOLACTONE, presenting with 1 month of worsening abdominal ascites. Abdominal CT showed cirrhosis, significant ascites, prominent splenomegaly, anasarca, esophageal and perigastric varices, no bowel obstruction. Ultrasound gallbladder showed distended gallbladder, negative for cholelithiasis, mildly thickened gallbladder wall likely from ascites. Anasarca on exam, with 2+ bilateral extremity edema extending above the knee. MELD score 9 equates to 6% mortality in 3 months. Child-Wilhelm score 7, Class B, indication for transplant evaluation. Paracentesis removed 8.4 L fluids, ALBUMIN was given pre and post para. Paracentesis analysis: WBC 202, peritoneal RBC 1000, total protein 4, albumin 2.2, LD H108, glucose 137, amylase 29 SAAG < 1.1 g/dL Portal hypertension is not necessarily the cause of ascites Ultrasound guided paracentesis removed 4550 cc of fluid Abdominal ultrasound 01/28/2025 showed minimal ascites MELD-Na Score (01/28/2025) 12 points, <2% mortality estimated 90 day mortality Completed 10 days of CEFTRIAXONE for SBP prophylaxis with the addition of few days of FLUCONAZOLE. Afebrile, no leukocytosis ? Holding diuresis for now given slightly worsening kidney function. ? Continue MIDODRINE 5 mg TID PRN ? Continue rifaximin BID ? Holding LACTULOSE, goal 3?5 BMs daily ? Continue SPIRONOLACTONE 25 mg daily ? Continue albumin infusions 12.5 g IV daily ? Follow-up on ammonia level today ? Consider resuming LASIX when able ? Encourage oral intake ? Fluid restriction ? Sodium restriction of 2 g/day Acute kidney injury Prerenal 2/2 to hypotention ?Hepatorenal syndrome Cr 1.7 (1.1) Baseline Cr 0.9 ? Lactated Ringer's 250 mL today ? Holding diuresis for now ? Monitor renal panel ? Renally dose meds, avoid overdiuresis and NEPHROTOXINS Constipation?improving Abdominal distention? improving Patient has not had a bowel movement in a few days KUB showed large stool in rectosigmoid, few air distended small bowel loop CT abdomen pelvis 01/26/25 Cirrhosis with moderate ascites Significant splenomegaly Esophageal and perigastric varices Suspicious for ischemic right colon Small bowel obstruction pattern Recommend surgical consultation AXR 01/30/25 Moderate air and stool throughout the colon including rectum. Mild to moderate air distended small bowel loops in the left abdomen No free air ?Not on lactulose at the moment ? GoLytely until clears bowels Possible polypharmacy Hx anxiety She is on multiple anxiolytics. Neurology is following, URSULA showed diffuse slowing c/w hepatic encephalopathy ? Holding home PRIMIDONE, ZOLPIDEM in settings of acute encephalopathy. ? Holding home LEXAPRO daily given acute encepahlopathy ? Holding home LYRICA BID given acute encepahlopathy Hypothyroidism TSH 2.33 Free T4 1.15 Thyroxine T3 48.2 Free T3 0.8 Patient was taking liothyronine 20 mcg daily but was not started in hospital - Liothyronine 10 mcg daily started today, half of patient's home dose ? Levothyroxine 112 mcg daily Microcytic anemia (stable) Grade 1 esophageal varices Mild thrombocytopenia (resolved) Hgb 8.9, baseline 11.4. Likely iron deficiency versus cirrhosis. CT showed esophageal and perigastric varices. Reports chronic, recurrent hemorrhoidal bleed, but denies dark stool or upper GI bleed. Had an EGD last year and was abnormal. She is on a 5-year colonoscopy scheduled for colonic polyps, last colonoscopy 5 years ago. B12 and folate WNL. Iron stores are low. EGD showed grade 1 lower third esophageal varices, moderate patchy hemorrhagic characteristic of the gastric antrum. GI recommended outpatient colonoscopy. Hemoglobin stable. ? Transfuse if Hgb less than 8 ? Will need PROPRANOLOL for variceal prophylaxis, if BP can tolerate ? Continue daily oral iron supplements HTN Asymptomatic sinus bradycardia Currently BP soft, normocardic. EKG shows sinus bradycardia, likely cirrhosis related on oral dysfunction versus BETA-BLOCKERS. ? Continue home LEVOTHYROXINE 112 mcg AC BR ? Consider resume home METOPROLOL when able COPD, asthma Chronic respiratory failure, on home 2 L O2 No signs of asthma or COPD exacerbation ? DuoNebs q.6h. PRN ? Will discharge on [facility] T2DM A1c 7.7 from 08/2024. ? INSULIN sliding scale ? Accu-Cheks Electrolyte abnormalities ? Daily labs, replete as needed Health maintenance Diet: Renal diet GI prophylaxis: PROTONIX DVT prophylaxis: HEPARIN subcu Antibiotics: No addition CODE STATUS: Full code Case discussed with my attending Dr. Sim , and senior resident, Dr. Malika Kidd MD PGY-1 Attending Provider Attestation/Addendum I attest that I was physically present for the evaluation, physical examination, lab and imaging review of the patient with the residents. I discussed the case with the residents and agree with the findings and plans of care as documented above. At bedside today, patient is alert and awake, oriented and able to answer questions appropriately. Appears more comfortable compared to yesterday. She had a large bowel movement today but still not having 3-4 bowel movements per day. She is also continued on rifaximin and start her on GoLytely. Patient has not had good oral intake in few days, she is noted to have elevated BUN and creatinine, 24/1.7 today. We will hold her Lasix and add 250 cc of IV fluid infusion along with albumin. Patient is also planned for ultrasound-guided paracentesis with IR today. We will add albumin if she undergoes large-volume paracentesis and send the fluid for follow-up studies. Salvador Sim MD
[2025-02-01] MEDS: NA SU/NAHCO3/KC/PEG (Golytely) 4,000 ML BTL 4000 ML PO (12:18)
[2025-02-01] MEDS: MIDODRINE 5 MG TABLET PO (14:34)
--- NOTE | 2025-02-01 17:58 | ESPR_ITS ---
<Statement entered by Erin Tomas MD - 02/07/25 12:20> I personally examined the patient and evaluated the patient with resident physician patient with multiple medical issues including cirrhosis of the liver portal hypertension recurrent ascites clinically stable still having shortness of breath. Evaluate the patient with resident physician PGY 2 agree with the treatment plan recommendation as documented by Dr. Kennedy PGY 2 will continue to follow patient's cardiac status closely. All the essential components of the note is reviewed agree with treatment plan. Patient is receiving albumin which is a good idea repeat ultrasound showed did not show significant ascites to be requiring paracentesis Documentation for date of: 02/01/25 Subjective Subjective Interval history: Pt is seen at bedside, currently saturating on room air. Pt appears denies shortness of breath but does appear to be uncomfortable due to distended abdomen. Pt deneis any shortness of breath of chestpain. Pt is currently drinking golytly to have regular bowel movement. vitals are stable pt is in sinus rhythm. labs are significant for Hgb 9.8, Hct 30.3, BUN 24, Cr 1.7, GFR 33, Ca 10.3, alk phos 212. Abdomenal US today shows mild ascites, not enough to do paracenthesis. Recommend continue lasix and spironolactone as BP is able to tolerate. Recommend albumin with paracenthesis Exam Vital Signs Temp Pulse Resp BP Pulse Ox O2 Del Method O2 Flow Rate 97.1 F 77 15 116/55 L 94 L Nasal Cannula 1 02/01/25 15:57 02/01/25 16:00 02/01/25 15:57 02/01/25 15:57 02/01/25 15:57 02/01/25 15:57 02/01/25 15:57 Narrative Exam GENERAL: A&Ox2, chronically ill appearing, Awake, Not in acute distress NEURO: no focal neurological deficits HEENT: Atraumatic, Normocephalic. mucous membranes moist. Eyes open, symmetrical, & clear HEART: Normal Heart Sounds, regular rate and rhythm LUNGS: no crackles ABDOMEN: moderatly distended abdomen with diffuse tenderness EXTREMITIES: no edema noted in LE, no tenderness, able to move all 4 extremities, pedal pulses palpated Objective Labs 02/01/25 05:05 02/01/25 05:05 Labs: Laboratory Results - last 24 hr 01/25/25 01/26/25 02/01/25 11:23 05:17 05:05 WBC 9.1 RBC 3.91 L Hgb 9.8 L Hct 30.3 L MCV 78 L MCH 25.1 MCHC 32.3 RDW Std Deviation 44.1 Plt Count 243 D Neut % (Auto) 69 Lymph % (Auto) 16 [place] % (Auto) 7 Eos % (Auto) 4 Baso % (Auto) 1 Neut # (Auto) 6.3 Lymph # (Auto) 1.5 [place] # (Auto) 0.7 Eos # (Auto) 0.4 Baso # (Auto) 0.1 Immature Gran # (Auto) 0.20 H Absolute Nucleated RBC 0.00 Immature Gran % 2 H Nucleated RBC % 0 PT 12.7 H INR 1.2 APTT 27.1 Sodium 140 Potassium 3.7 Chloride 100 Carbon Dioxide 30.2 Anion Gap 10 BUN 24 H Creatinine 1.7 H D Estim Creat Clear Calc 34.0 L eGFR 33 L BUN/Creatinine Ratio 14 Glucose 172 H Calculated Osmolality 287 Calcium 10.1 Corrected Calcium 10.3 H Phosphorus 4.1 Magnesium 2.0 Total Bilirubin 0.6 AST 24 ALT 10 Alkaline Phosphatase 212 H Lactate Dehydrogenase 123 Total Protein 6.6 Albumin 3.8 Globulin 2.8 Albumin/Globulin Ratio 1.4 Vit D 1,25-Dihyd Total 20 1,25 Dihydroxy Vit D2 <8 1,25 Dihydroxy Vit D3 20 Total T3 34 L ABG Interpretation ABG results: 01/26/25 05:17 VBG pH 7.43 VBG pCO2 37 VBG pO2 59 H VBG Base Excess 0 Quality Measures Quality Measures VTE prophylaxis Advance care planning discussed with:: patient Assessment & Plan Assessment Current Active Medications: Generic Name Dose Route Start Last Admin Trade Name Freq PRN Reason Stop Dose Admin Acetaminophen 650 mg 01/20/25 16:47 02/01/25 08:07 Acetaminophen 325 Mg Tablet PO 02/19/25 16:46 650 mg Q6H PRN Administration PAIN SCALE 1-3 (mild Acetaminophen 650 mg 01/20/25 16:47 01/24/25 19:47 Acetaminophen 325 Mg Tablet PO 02/19/25 16:46 650 mg Q6H PRN Administration Fever >100.4 Albuterol/Ipratropium 3 ml 01/20/25 18:38 01/29/25 21:46 Albuterol/Ipratropium (Duoneb) Rt Lisset 3 Ml Nebu INH 02/19/25 18:37 3 ml Q6HRRT PRN Administration Wheezing Ascorbic Acid 250 mg 01/29/25 09:00 02/01/25 08:08 Ascorbic Acid 250 Mg Tablet PO 02/28/25 08:59 250 mg BID REYNA Administration Carvedilol 3.125 mg 01/29/25 17:30 02/01/25 08:08 Carvedilol 3.125 Mg Tablet PO 02/28/25 17:29 3.125 mg BIDWM REYNA Administration Dextrose 25 ml 01/20/25 18:39 Dextrose 50%-Water Inj 50 Ml Syringe IV 02/19/25 18:38 Q15MIN PRN BG 50-70 responsive npo pt Dextrose 50 ml 01/20/25 18:39 Dextrose 50%-Water Inj 50 Ml Syringe IV 02/19/25 18:38 Q15MIN PRN BG <50 OR BG <70 & pt unresponsive Docusate Sodium 200 mg 01/24/25 21:00 02/01/25 08:08 Docusate Sod 100 Mg Capsule PO 02/23/25 20:59 200 mg QDAY REYNA Administration Protocol Escitalopram Oxalate 20 mg 01/24/25 16:30 02/01/25 08:08 Escitalopram Oxalate 10 Mg Tablet PO 02/23/25 16:29 20 mg QDAY REYNA Administration Folic Acid 1 mg 01/29/25 09:00 02/01/25 08:07 Folic Acid 1 Mg Tablet PO 02/28/25 08:59 1 mg QDAY REYNA Administration Furosemide 40 mg 01/30/25 09:30 01/30/25 10:01 Furosemide 40 Mg Tablet PO 03/01/25 09:29 40 mg QDAY REYNA Administration Glucagon 1 mg 01/20/25 18:39 Glucagon Inj 1 Mg Vial IM Q15MIN PRN BG <70, and no IV access Heparin Sodium (Porcine) 5,000 unit 01/20/25 21:00 02/01/25 08:09 Heparin Sod Inj 5000 Unit/Ml Vial SC 02/03/25 20:59 5,000 unit BID REYNA Administration Albumin Human 12.5 gm in 50 mls @ 100 mls/hr 02/01/25 07:53 02/01/25 08:23 Albuminar-25 Ivpb IV 03/03/25 07:52 Not Given QDAY REYNA Insulin Human Lispro 0 unit 01/20/25 21:00 02/01/25 17:33 Insulin Lispro (Admelog) 1 Unit/0.01 Ml Unit SC 02/19/25 20:59 1 unit ACHS REYNA Administration Protocol Levothyroxine Sodium 112 mcg 01/21/25 06:00 02/01/25 05:09 Levothyroxine Sodium 112 Mcg Tablet PO 02/20/25 05:59 112 mcg ACBR REYNA Administration Lidocaine 1 patch 01/21/25 10:22 Lidocaine 5% 1 Patch TOP 02/20/25 10:21 UD PRN Back pain Protocol Liothyronine Sodium 10 mcg 01/25/25 14:15 02/01/25 11:07 Liothyronine Sod 5 Mcg Tablet PO 02/24/25 14:14 10 mcg QDAY REYNA Administration Loratadine 10 mg 01/21/25 09:00 02/01/25 08:06 Loratadine 10 Mg Tablet PO 02/20/25 08:59 10 mg QDAY REYNA Administration Melatonin 3 mg 02/01/25 00:05 Melatonin 3 Mg Tablet PO 03/03/25 00:04 HS PRN INSOMNIA Midodrine 5 mg 01/31/25 11:45 02/01/25 14:34 Midodrine 5 Mg Tablet PO 03/02/25 11:44 5 mg TID REYNA Administration Multivitamins 1 tab 01/29/25 09:00 02/01/25 08:08 Multivitamins Tablet PO 02/28/25 08:59 1 tab QDAY REYNA Administration Ondansetron HCl 4 mg 01/20/25 16:47 01/31/25 21:20 Ondansetron Inj 2 Mg/Ml Inj 2 Ml IVP 02/19/25 16:46 4 mg Q6H PRN Administration NAUSEA OR VOMITING Protocol Pantoprazole Sodium 40 mg 01/28/25 09:00 02/01/25 08:08 Pantoprazole 40 Mg Tablet PO 02/27/25 08:59 40 mg BID REYNA Administration Pregabalin 100 mg 02/01/25 21:00 Pregabalin 50 Mg Capsule PO 03/03/25 20:59 BID REYNA Rifaximin 550 mg 01/25/25 21:00 02/01/25 08:06 Rifaximin 550 Mg Tablet PO 02/01/25 20:59 550 mg BID REYNA Administration Simethicone 80 mg 01/26/25 08:38 01/30/25 20:42 Simethicone 80 Mg Chew PO 02/25/25 08:37 80 mg QID PRN Administration GAS Spironolactone 25 mg 01/29/25 10:15 01/31/25 09:11 Spironolactone 25 Mg Tablet PO 02/28/25 10:14 25 mg QDAY REYNA Administration Thiamine HCl 100 mg 01/29/25 09:00 02/01/25 08:08 Thiamine 100 Mg Tablet PO 02/28/25 08:59 100 mg QDAY REYNA Administration Plan Ms. Mario is a 64-year-old female with past medical history significant for decompensated liver cirrhosis (diagnosed in October 2024), COPD on home oxygen, asthma, hypothyroidism, hypertension, type 2 diabetes and anxiety presented to the ED on 01/20/25 complaining of worsening abdominal pain and distention. Cardiology is consulted due to tachycardia and hypotension. #Syncopal episode #Pulmonary arterial hypertension -ruled out #Portal hypertension #Hepatorenal Syndrome #Sinus tachycardia secondary to fevers- resolved #Hypotension -Patient has been in the hospital since 01/20 however since midnight overnight patient has been having sinus tachycardia and fever. Telemetry is reviewed patient is in sinus rhythm. Since patient is a high risk for peritonitis in the setting of end-stage liver disease patient's tachycardia is likely from the fevers indicating possible source of infection. -Low cardiac suspicion for her symptoms right now, patient's hypotension is due to current illness as patient had 8.4 L of fluid removed via paracentesis. EKG: Sinus tachycardia with rate of 120 and QTc 449 Plan: -Continue treating patient's decompensated liver cirrhosis -Continue broad-spectrum IV antibiotics for possible source of infection -Recommended to continue coreg, spironolactone and midodrine as BP tolerated -Recommend albumin with future paracenthesis -Continue low-sodium 2 g diet -Strict ins and outs -Echo showed good cardiac activity with EF >60% and no evidence of PAH #End-stage liver disease #Altered mental status- improved #[id number] type 2 diabetes #Primary hypertension #Hypothyroidism #COPD #Asthma #Anxiety Management as per primary team Assessment and plan discussed with my attending [employer] [facility] Administrator Dr. Thom Kennedy (PGY-2)- Internal medicine resident
--- NOTE | 2025-02-01 19:53 | ESPR_ITS ---
Documentation for date of: 02/01/25 Subjective Subjective Interval history: Although patient has abdominal distention most likely due to some dilatation of the small bowel but not much ascites for it to have a therapeutic intervention Abdominal x-ray shows stool impaction and some dilatation of the small bowel Plan is to do a GoLytely flush and remove the stool burden from the colon particularly left colon Exam Vital Signs Temp Pulse Resp BP Pulse Ox O2 Del Method O2 Flow Rate 97.1 F 77 15 116/55 L 94 L Nasal Cannula 1 02/01/25 15:57 02/01/25 16:00 02/01/25 15:57 02/01/25 15:57 02/01/25 15:57 02/01/25 15:57 02/01/25 15:57 Objective Labs 02/01/25 05:05 02/01/25 05:05 Labs: Laboratory Results - last 24 hr 01/25/25 01/26/25 02/01/25 11:23 05:17 05:05 WBC 9.1 RBC 3.91 L Hgb 9.8 L Hct 30.3 L MCV 78 L MCH 25.1 MCHC 32.3 RDW Std Deviation 44.1 Plt Count 243 D Neut % (Auto) 69 Lymph % (Auto) 16 [place] % (Auto) 7 Eos % (Auto) 4 Baso % (Auto) 1 Neut # (Auto) 6.3 Lymph # (Auto) 1.5 [place] # (Auto) 0.7 Eos # (Auto) 0.4 Baso # (Auto) 0.1 Immature Gran # (Auto) 0.20 H Absolute Nucleated RBC 0.00 Immature Gran % 2 H Nucleated RBC % 0 PT 12.7 H INR 1.2 APTT 27.1 Sodium 140 Potassium 3.7 Chloride 100 Carbon Dioxide 30.2 Anion Gap 10 BUN 24 H Creatinine 1.7 H D Estim Creat Clear Calc 34.0 L eGFR 33 L BUN/Creatinine Ratio 14 Glucose 172 H Calculated Osmolality 287 Calcium 10.1 Corrected Calcium 10.3 H Phosphorus 4.1 Magnesium 2.0 Total Bilirubin 0.6 AST 24 ALT 10 Alkaline Phosphatase 212 H Lactate Dehydrogenase 123 Total Protein 6.6 Albumin 3.8 Globulin 2.8 Albumin/Globulin Ratio 1.4 Vit D 1,25-Dihyd Total 20 1,25 Dihydroxy Vit D2 <8 1,25 Dihydroxy Vit D3 20 Total T3 34 L Impressions Impression: Abdominal distention due to some dilatation of small bowel and stool burden Chronic liver disease secondary to alcohol Improving renal function Resolving SBP Hepatic encephalopathy Plan increase the lactulose so patient can have 4-5 bowel movements If no improvement of abdominal distention will give GoLytely to clear the stool burden ABG Interpretation ABG results: 01/26/25 05:17 VBG pH 7.43 VBG pCO2 37 VBG pO2 59 H VBG Base Excess 0 Assessment & Plan A&P Narrative # Decompensated alcoholic liver disease with advanced portal hypertension esophageal varices and intractable ascites Plan Agree with the IV Lasix Agree with IV albumin Add spironolactone 25 mg p.o. twice daily Scheduled for therapeutic paracentesis Monitor renal function closely Consent obtained for fiberoptic esophagogastroduodenoscopy with possible biopsy possible therapeutic intervention for prophylactic band ligation of the esophageal varices Agree with IV ceftriaxone for the possibility of subacute bacterial peritonitis Will follow the patient Other medical problems include COPD on home oxygen 2 L nasal cannula Essential hypertension Hypothyroidism Hyperlipidemia Thank you very much for the opportunity to participate in care of this patient Time Spent With Patient Time: Total time spent is greater than 50% in coordination of care (as documented) at patient's floor/unit and/or counseling patient:
[2025-02-01] MEDS: PREGABALIN 50 MG CAPSULE 100 MG PO (20:32)
--- NOTE | 2025-02-01 20:44 | PD.NEUROPROG ---
Documentation for date of: 02/01/25 Subjective Subjective Interval history: Patient was seen in telemetry today. She complains of abdominal pain from distention and is asking for [place] which was discontinued recently. She did have bowel movements today with GoLytely. Exam - Neurology Vital Signs Temp Pulse Resp BP Pulse Ox O2 Del Method O2 Flow Rate 97.1 F 77 15 116/55 L 94 L Nasal Cannula 1 02/01/25 15:57 02/01/25 16:00 02/01/25 15:57 02/01/25 15:57 02/01/25 15:57 02/01/25 15:57 02/01/25 15:57 Narrative Exam GENERAL APPEARANCE: Well hydrated, well-nourished in no acute distress. HEENT: Normocephalic, atraumatic, extraocular movements intact. Pupils: Equal reacting to light and accommodation NECK: Supple, no JVD or bruits. CARDIOVASULAR: Heart: S1, S2 heard, regular without S3-S4 or murmur no rubs or gallops. LUNGS/CHEST: Clear to auscultation bilaterally. No rails, rhonchi, or wheezing. Normal inspection. ABDOMEN: Distended with ascites EXTREMITIES: Normal inspection and palpation. No edema, clubbing or cyanosis. SKIN: Warm and dry without rashes. Normal inspection. MUSCULOSKELETAL: No cervical, thoracic, lumbar or midline bony tenderness. Normal inspection. NEURO: Alert, awake and oriented x3. Cranial nerves: II through XII grossly intact. Speech and language: Normal with no dysarthria or dysphasia. Motor system: Tone and bulk: Normal: Strength: 5 out of 5 in all 4 extremities; No pronator drift noted. Deep tendon reflexes: 2+ bilaterally symmetrical. Plantar reflex: Downgoing bilaterally. Sensory system: Intact to all modalities of sensation bilaterally. Coordination: Intact to [id number] and [id number] test bilaterally. No ataxia, no dysmetria, or dysdiadochokinesia noted. No intention tremors noted. Gait: Not tested. No signs of meningeal irritation noted. PSYCHIATRIC: Normal mood and affect. Objective Labs 02/01/25 05:05 02/01/25 05:05 Labs: Laboratory Results - last 24 hr 01/25/25 01/26/25 02/01/25 11:23 05:17 05:05 WBC 9.1 RBC 3.91 L Hgb 9.8 L Hct 30.3 L MCV 78 L MCH 25.1 MCHC 32.3 RDW Std Deviation 44.1 Plt Count 243 D Neut % (Auto) 69 Lymph % (Auto) 16 [place] % (Auto) 7 Eos % (Auto) 4 Baso % (Auto) 1 Neut # (Auto) 6.3 Lymph # (Auto) 1.5 [place] # (Auto) 0.7 Eos # (Auto) 0.4 Baso # (Auto) 0.1 Immature Gran # (Auto) 0.20 H Absolute Nucleated RBC 0.00 Immature Gran % 2 H Nucleated RBC % 0 PT 12.7 H INR 1.2 APTT 27.1 Sodium 140 Potassium 3.7 Chloride 100 Carbon Dioxide 30.2 Anion Gap 10 BUN 24 H Creatinine 1.7 H D Estim Creat Clear Calc 34.0 L eGFR 33 L BUN/Creatinine Ratio 14 Glucose 172 H Calculated Osmolality 287 Calcium 10.1 Corrected Calcium 10.3 H Phosphorus 4.1 Magnesium 2.0 Total Bilirubin 0.6 AST 24 ALT 10 Alkaline Phosphatase 212 H Lactate Dehydrogenase 123 Total Protein 6.6 Albumin 3.8 Globulin 2.8 Albumin/Globulin Ratio 1.4 Vit D 1,25-Dihyd Total 20 1,25 Dihydroxy Vit D2 <8 1,25 Dihydroxy Vit D3 20 Total T3 34 L ABG Interpretation ABG results: 01/26/25 05:17 VBG pH 7.43 VBG pCO2 37 VBG pO2 59 H VBG Base Excess 0 Assessment & Plan Assessment and plan (1) Hepatic encephalopathy: Status: Acute Assessment and plan: Resolving Continue to monitor her closely and restrict the use of opiates Patient might need paracentesis as the abdominal distention gets worse.
[2025-02-02] VITALS (12 sets, daily range): BP systolic 115–136; BP diastolic 56–85; PULSE 82–101; RESP 12–96; TEMP 35.9–36.8; O2SAT 90–96; BMI 30.5; BMI 13.0
[2025-02-02] MEDS: LEVOTHYROXINE SODIUM 112 MCG TABLET PO (05:39)
[2025-02-02] MEDS: ACETAMINOPHEN 325 MG TABLET 650 MG PO (05:44)
[2025-02-02 06:01] LABS: Basophils # (Auto) 0.1 Thou/mm3 (0.0-0.2); Basophils % (Auto) 1 % (0-2.5); Eosinophils # (Auto) 0.4 Thou/mm3 (0.0-0.5); Eosinophils % (Auto) 4 % (0-10); Hematocrit 29.2 % (36.0-46.0); Hemoglobin 9.2 g/dL (12.0-16.0); Immature Granulocytes Auto 0.15 Thou/mm3 (0.00-0.00); Lymphocytes # (Auto) 1.8 Thou/mm3 (1.0-4.8); Lymphocytes % (Auto) 19 % (10-50); Mean Corpuscular HGB Conc 31.5 g/dl (31.0-37.0); Mean Corpuscular Hemoglobin 25.3 pg (25.0-35.0); Mean Corpuscular Volume 80 fL (80-100); Monocytes # (Auto) 0.7 Thou/mm3 (0.0-0.8); Monocytes % (Auto) 7 % (0-12); Neutrophils # (Auto) 6.3 Thou/mm3 (1.8-7.7); Neutrophils % (Auto) 67 % (37-80); Nucleated Red Blood Cell # 0.00 Thou/mm3 (0.00-0.00); Nucleated Red Blood Cell % 0 /100 WBC (0); Platelet Count 213 Thou/mm3 (140-440); RDW Standard Deviation 45.9 fL (36.4-46.3); Red Blood Count 3.63 Miln/mm3 (4.00-5.20); White Blood Count 9.3 Thou/mm3 (3.6-11.0)
[2025-02-02 06:06] LABS: INR 1.2 (0.9-1.3); Prothrombin Time 13.0 Seconds (9.0-12.2)
[2025-02-02 06:41] LABS: Alanine Aminotransferase 8 U/L (10-49); Albumin, Serum 3.6 gm/dL (3.4-4.8); Albumin/Globulin Ratio 1.3 (1.2-2.2); Alkaline Phosphatase 197 U/L (46-116); Anion Gap 9 (7-16); Aspartate Amino Transferase 22 U/L (0-34); BUN/Creatinine Ratio 18 Ratio (12-20); Bilirubin,Total 0.6 mg/dL (0.3-1.2); Blood Urea Nitrogen 23 mg/dL (9-23); Calcium 9.4 mg/dL (8.3-10.6); Calcium (Corrected) 9.7 mg/dL (8.5-10.1); Carbon Dioxide 29.8 mMol/L (20.0-31.0); Chloride 103 mMol/L (98-107); Creatinine (Component) 1.3 mg/dL (0.6-1.3); Estimated Creatinine Clearance 44.5 mL/min (>60); Globulin 2.8 gm/dL (2.3-3.5); Glucose 156 mg/dL (74-106); Magnesium 1.3 mg/dL (1.6-2.6); Osmolality,Calculated 289 (275-295); Phosphorous 2.7 mg/dL (2.4-5.1); Potassium 3.7 mMol/L (3.4-5.1); Sodium 142 mMol/L (136-145); Total Protein 6.4 gm/dL (5.7-8.2); eGFR 46 See Note
[2025-02-02] MEDS: INSULIN LISPRO (AdmeLOG) 1 UNIT/0.01 ML UNIT SC ×3 (07:52→17:32)
--- NOTE | 2025-02-02 09:04 | PC.SS ---
Addendum entered by Marizol Adan 02/02/25 11:59: clinical updates sent to facility. Patient pending auth Original Note: -Follow up note: SS received message that insurance company is wanting a peer:peer before 12noon today. #[phone] with a reference# [id number]. Updated attending physician. Patient was accepted at [facility]
[2025-02-02] MEDS: DOCUSATE SOD 100 MG CAPSULE 200 MG PO (09:25)
[2025-02-02] MEDS: ESCITALOPRAM OXALATE 10 MG TABLET 20 MG PO (09:25)
[2025-02-02] MEDS: HEPARIN SOD INJ 5000 UNIT/ML VIAL SC ×2 (09:25→20:41)
[2025-02-02] MEDS: LIOTHYRONINE SOD 5 mCg TABLET 10 MCG PO (09:26)
[2025-02-02] MEDS: ASCORBIC ACID 250 MG TABLET PO ×2 (09:26→20:40)
[2025-02-02] MEDS: FOLIC ACID 1 MG TABLET PO (09:26)
[2025-02-02] MEDS: PANTOPRAZOLE 40 MG TABLET PO ×2 (09:26→20:40)
[2025-02-02] MEDS: PREGABALIN 50 MG CAPSULE 100 MG PO ×2 (09:26→20:39)
[2025-02-02] MEDS: THIAMINE 100 MG TABLET PO (09:26)
[2025-02-02] MEDS: MULTIVITAMINS TABLET 1 TAB PO (09:26)
[2025-02-02] MEDS: ALBUMIN HUMAN 25% IVPB 12.5 GM/50 ML BTL IV (09:27)
[2025-02-02] MEDS: Magnesium Sulfate 4 GM Ivpb 4 GM/50 ML BAG IV (09:45)
--- NOTE | 2025-02-02 10:55 | XR_ITS ---
Examination: Abdomen AP single view Technique: AP portable supine abdomen, single view Exam date and time: February 02, 2025 1115 hours Comparison January 30, 2025 INDICATIONS: Abdominal pain and distention this week. FINDINGS: Numerous air distended small bowel loops No free air Heavy abdominal aortic calcification IMPRESSION: Severe small bowel ileus versus early obstruction, clinical correlation advised
[2025-02-02] MEDS: MIDODRINE 5 MG TABLET PO (13:34)
--- NOTE | 2025-02-02 14:20 | ESPR_ITS ---
<Statement entered by Erin Tomas MD - 02/07/25 12:21> I personally examined the patient evaluate the patient with resident physician PGY 2 Dr. Kennedy agree with the treatment plan recommendation as documented patient continues to improve renal function improving clinically made definite progress mental status also improved continue to monitor the patient closely cardiac status closely with PGY 2 continue albumin as well for hypoalbuminemia evaluated patient with resident physician all essential complaints reviewed by me personally agree with the treatment plan recommendation as documented Documentation for date of: 02/02/25 Subjective Subjective Interval history: Pt is seen at bedside currently saturating 92% on 2L of oxygen via nasal cannula. Pt appears to be lethargic and more somnolent. Pt states she is tired and uncomfortable. Pt had a large bowel movement. Per GI recommendation pt is undergoing golytly flush. Pt has distended abdomen but not enough ascites for paracenthesis just yet. Pt denies any chest pain, palpitations and is in sinus rhythm with HR of 80- 90's. vitals are stable BP is 125/62, labs are reviewed Cr is improved to 1.3, BUN 23, GFR 46. Lasix, Spironolactone and coreg is held due to pt's low BP, However pt does not appear to be fluid overloaded. may resume when able Exam Vital Signs Temp Pulse Resp BP Pulse Ox O2 Del Method O2 Flow Rate 97.4 F 96 14 119/56 L 93 L Nasal Cannula 1 02/02/25 12:00 02/02/25 13:34 02/02/25 12:00 02/02/25 13:34 02/02/25 12:00 02/02/25 12:00 02/02/25 12:00 Narrative Exam GENERAL: A&Ox2, chronically ill appearing, Awake, Not in acute distress NEURO: no focal neurological deficits HEENT: Atraumatic, Normocephalic. mucous membranes moist. Eyes open, symmetrical, & clear HEART: Normal Heart Sounds, regular rate and rhythm LUNGS: no crackles ABDOMEN: moderatly distended abdomen with diffuse tenderness EXTREMITIES: no edema noted in LE, no tenderness, able to move all 4 extremities, pedal pulses palpated Objective Labs 02/02/25 05:05 02/02/25 05:05 Labs: Laboratory Results - last 24 hr 02/02/25 05:05 WBC 9.3 RBC 3.63 L Hgb 9.2 L Hct 29.2 L MCV 80 MCH 25.3 MCHC 31.5 RDW Std Deviation 45.9 Plt Count 213 D Neut % (Auto) 67 Lymph % (Auto) 19 [place] % (Auto) 7 Eos % (Auto) 4 Baso % (Auto) 1 Neut # (Auto) 6.3 Lymph # (Auto) 1.8 [place] # (Auto) 0.7 Eos # (Auto) 0.4 Baso # (Auto) 0.1 Immature Gran # (Auto) 0.15 H Absolute Nucleated RBC 0.00 Immature Gran % 2 H Nucleated RBC % 0 PT 13.0 H INR 1.2 Sodium 142 Potassium 3.7 Chloride 103 Carbon Dioxide 29.8 Anion Gap 9 BUN 23 Creatinine 1.3 Estim Creat Clear Calc 44.5 L eGFR 46 L BUN/Creatinine Ratio 18 Glucose 156 H Calculated Osmolality 289 Calcium 9.4 Corrected Calcium 9.7 Phosphorus 2.7 Magnesium 1.3 L Total Bilirubin 0.6 AST 22 ALT 8 L Alkaline Phosphatase 197 H Total Protein 6.4 Albumin 3.6 Globulin 2.8 Albumin/Globulin Ratio 1.3 ABG Interpretation ABG results: 01/26/25 05:17 VBG pH 7.43 VBG pCO2 37 VBG pO2 59 H VBG Base Excess 0 Quality Measures Quality Measures VTE prophylaxis Advance care planning discussed with:: patient and child Assessment & Plan Assessment Current Active Medications: Generic Name Dose Route Start Last Admin Trade Name Freq PRN Reason Stop Dose Admin Acetaminophen 650 mg 01/20/25 16:47 02/02/25 05:44 Acetaminophen 325 Mg Tablet PO 02/19/25 16:46 650 mg Q6H PRN Administration PAIN SCALE 1-3 (mild Acetaminophen 650 mg 01/20/25 16:47 01/24/25 19:47 Acetaminophen 325 Mg Tablet PO 02/19/25 16:46 650 mg Q6H PRN Administration Fever >100.4 Albuterol/Ipratropium 3 ml 01/20/25 18:38 01/29/25 21:46 Albuterol/Ipratropium (Duoneb) Rt Lisset 3 Ml Nebu INH 02/19/25 18:37 3 ml Q6HRRT PRN Administration Wheezing Ascorbic Acid 250 mg 01/29/25 09:00 02/02/25 09:26 Ascorbic Acid 250 Mg Tablet PO 02/28/25 08:59 250 mg BID REYNA Administration Carvedilol 3.125 mg 01/29/25 17:30 02/01/25 08:08 Carvedilol 3.125 Mg Tablet PO 02/28/25 17:29 3.125 mg BIDWM REYNA Administration Dextrose 25 ml 01/20/25 18:39 Dextrose 50%-Water Inj 50 Ml Syringe IV 02/19/25 18:38 Q15MIN PRN BG 50-70 responsive npo pt Dextrose 50 ml 01/20/25 18:39 Dextrose 50%-Water Inj 50 Ml Syringe IV 02/19/25 18:38 Q15MIN PRN BG <50 OR BG <70 & pt unresponsive Docusate Sodium 200 mg 01/24/25 21:00 02/02/25 09:25 Docusate Sod 100 Mg Capsule PO 02/23/25 20:59 200 mg QDAY REYNA Administration Protocol Escitalopram Oxalate 20 mg 01/24/25 16:30 02/02/25 09:25 Escitalopram Oxalate 10 Mg Tablet PO 02/23/25 16:29 20 mg QDAY REYNA Administration Folic Acid 1 mg 01/29/25 09:00 02/02/25 09:26 Folic Acid 1 Mg Tablet PO 02/28/25 08:59 1 mg QDAY REYNA Administration Furosemide 40 mg 01/30/25 09:30 01/30/25 10:01 Furosemide 40 Mg Tablet PO 03/01/25 09:29 40 mg QDAY REYNA Administration Glucagon 1 mg 01/20/25 18:39 Glucagon Inj 1 Mg Vial IM Q15MIN PRN BG <70, and no IV access Heparin Sodium (Porcine) 5,000 unit 01/20/25 21:00 02/02/25 09:25 Heparin Sod Inj 5000 Unit/Ml Vial SC 02/03/25 20:59 5,000 unit BID REYNA Administration Albumin Human 12.5 gm in 50 mls @ 100 mls/hr 02/01/25 07:53 02/02/25 09:27 Albuminar-25 Ivpb IV 03/03/25 07:52 100 mls/hr QDAY REYNA Administration Insulin Human Lispro 0 unit 01/20/25 21:00 02/02/25 11:37 Insulin Lispro (Admelog) 1 Unit/0.01 Ml Unit SC 02/19/25 20:59 2 unit ACHS REYNA Administration Protocol Lactulose 45 gm 02/02/25 14:00 02/02/25 13:35 Lactulose Syrup 20 Gm/30 Ml Udc PO 03/04/25 13:59 Not Given TID REYNA Protocol Levothyroxine Sodium 112 mcg 01/21/25 06:00 02/02/25 05:39 Levothyroxine Sodium 112 Mcg Tablet PO 02/20/25 05:59 112 mcg ACBR REYNA Administration Lidocaine 1 patch 01/21/25 10:22 Lidocaine 5% 1 Patch TOP 02/20/25 10:21 UD PRN Back pain Protocol Liothyronine Sodium 10 mcg 01/25/25 14:15 02/02/25 09:26 Liothyronine Sod 5 Mcg Tablet PO 02/24/25 14:14 10 mcg QDAY REYNA Administration Loratadine 10 mg 01/21/25 09:00 02/02/25 09:26 Loratadine 10 Mg Tablet PO 02/20/25 08:59 10 mg QDAY REYNA Administration Melatonin 3 mg 02/01/25 00:05 Melatonin 3 Mg Tablet PO 03/03/25 00:04 HS PRN INSOMNIA Midodrine 5 mg 01/31/25 11:45 02/02/25 13:34 Midodrine 5 Mg Tablet PO 03/02/25 11:44 5 mg TID REYNA Administration Multivitamins 1 tab 01/29/25 09:00 02/02/25 09:26 Multivitamins Tablet PO 02/28/25 08:59 1 tab QDAY REYNA Administration Ondansetron HCl 4 mg 01/20/25 16:47 01/31/25 21:20 Ondansetron Inj 2 Mg/Ml Inj 2 Ml IVP 02/19/25 16:46 4 mg Q6H PRN Administration NAUSEA OR VOMITING Protocol Pantoprazole Sodium 40 mg 01/28/25 09:00 02/02/25 09:26 Pantoprazole 40 Mg Tablet PO 02/27/25 08:59 40 mg BID REYNA Administration Pregabalin 100 mg 02/01/25 21:00 02/02/25 09:26 Pregabalin 50 Mg Capsule PO 03/03/25 20:59 100 mg BID REYNA Administration Simethicone 80 mg 01/26/25 08:38 01/30/25 20:42 Simethicone 80 Mg Chew PO 02/25/25 08:37 80 mg QID PRN Administration GAS Spironolactone 25 mg 01/29/25 10:15 01/31/25 09:11 Spironolactone 25 Mg Tablet PO 02/28/25 10:14 25 mg QDAY REYNA Administration Thiamine HCl 100 mg 01/29/25 09:00 02/02/25 09:26 Thiamine 100 Mg Tablet PO 02/28/25 08:59 100 mg QDAY REYNA Administration Plan Ms. Mario is a 64-year-old female with past medical history significant for decompensated liver cirrhosis (diagnosed in October 2024), COPD on home oxygen, asthma, hypothyroidism, hypertension, type 2 diabetes and anxiety presented to the ED on 01/20/25 complaining of worsening abdominal pain and distention. Cardiology is consulted due to tachycardia and hypotension. #Hypotension #Portal hypertension #Hepatorenal Syndrome #Syncopal episode #Pulmonary arterial hypertension -ruled out #Sinus tachycardia secondary to fevers- resolved -Patient has been in the hospital since 01/20 however since midnight overnight patient has been having sinus tachycardia and fever. Telemetry is reviewed patient is in sinus rhythm. Since patient is a high risk for peritonitis in the setting of end-stage liver disease patient's tachycardia is likely from the fevers indicating possible source of infection. -Low cardiac suspicion for her symptoms right now, patient's hypotension is due to current illness as patient had 8.4 L of fluid removed via paracentesis. EKG: Sinus tachycardia with rate of 120 and QTc 449 Plan: -Continue treating patient's decompensated liver cirrhosis -Continue broad-spectrum IV antibiotics for possible source of infection -Currently coreg, spironolactone and lasix on hold by primary team due to BP, may resume as tolerated -Recommend albumin with future paracenthesis -Continue low-sodium 2 g diet -Strict ins and outs -Echo showed good cardiac activity with EF >60% and no evidence of PAH #End-stage liver disease #Altered mental status- improved #[id number] type 2 diabetes #Primary hypertension #Hypothyroidism #COPD #Asthma #Anxiety Management as per primary team Assessment and plan discussed with my attending Stockroom Associate Dr. Thom Kennedy (PGY-2)- Internal medicine resident
--- NOTE | 2025-02-02 14:35 | ESPR_ITS ---
<Statement entered by Keith Daly MD - 02/02/25 16:49> A 64-year-old woman with alcoholic liver cirrhosis, COPD, hypothyroidism, hypertension, diabetes, and anxiety was admitted for decompensated liver cirrhosis with significant ascites. She underwent large-volume paracentesis (8.4 L) and started on albumin and diuretics. During hospitalization, she developed worsening hepatic encephalopathy with new myoclonus and jerks, prompting neurology consultation and medication adjustments. She experienced transient lactic acidosis and acute kidney injury (DONNA) that improved with albumin and stopping diuretics, but DONNA recurred after resuming diuretics. Diuretics were held again, fluids given, and albumin continued. Her encephalopathy is slowly improving, and she is participating in physical therapy. Oral intake is poor due to appetite loss and constipation. She developed severe ileus and possible early small bowel obstruction (SBO), managed with NG tube and lactulose per rectum. Attempts to restart diuretics caused DONNA; diuresis is currently withheld and may resume outpatient. Carvedilol was not restarted due to low blood pressure; midodrine is continued. Additional points: * EGD showed grade 1 esophageal varices without bleeding. * Negative workup for AMS, including head CT. * Completed antibiotics and fluconazole for suspected but unconfirmed spontaneous bacterial peritonitis (SBP), with repeat paracentesis planned. * Surgery consulted for suspected SBO and bowel ischemia but no intervention needed. * Thyroid meds adjusted based on endocrinology advice; outpatient follow-up planned. Overall, the patient is medically complex with ongoing management of cirrhosis complications, encephalopathy, DONNA, and bowel issues. Case was discussed with attending physician. Keith Daly DO PGY II This document was transcribed using voice recognition technology. Minor inaccuracies may be present. Documentation for date of: 02/02/25 Subjective Subjective Interval history: Patient examined at bedside. No acute overnight events. Abdominal distention has not improved, patient has more generalized abdominal pain now. 1 large bowel movement today, and 1 yesterday, but still is not meeting bowel movement goals per day. Exam Vital Signs Temp Pulse Resp BP Pulse Ox O2 Del Method O2 Flow Rate 97.4 F 96 14 119/56 L 93 L Nasal Cannula 1 02/02/25 12:00 02/02/25 13:34 02/02/25 12:00 02/02/25 13:34 02/02/25 12:00 02/02/25 12:00 02/02/25 12:00 Narrative Exam GENERAL Normal appearing adult female, NAD. HEENT NCAT. GEOVANNI. Oral mucosa is moist. Patent Nares NECK Supple, nontender, no JVD. CHEST RRR, no m/g/r, bilateral inspiratory crackles,no work of breathing, symmetrical expansion. ABDOMEN Soft, moderately distended, moderately tender throughout. No guarding/rebound tenderness/masses. Bowel sounds presents EXTREMITIES No edema/cyanosis. SKIN Warm and dry, no jaundice/rashes. Slightly pale. NEUROMUSCULAR Asterixis bilaterally of upper extremities. Moves all 4 extremities slowly, with full ROM. No focal neurologic deficits. PSYCHIATRY Normal mood and affect, cooperative, no hallucinations Objective Labs 02/02/25 05:05 02/02/25 05:05 Labs: Laboratory Results - last 24 hr 02/02/25 05:05 WBC 9.3 RBC 3.63 L Hgb 9.2 L Hct 29.2 L MCV 80 MCH 25.3 MCHC 31.5 RDW Std Deviation 45.9 Plt Count 213 D Neut % (Auto) 67 Lymph % (Auto) 19 [place] % (Auto) 7 Eos % (Auto) 4 Baso % (Auto) 1 Neut # (Auto) 6.3 Lymph # (Auto) 1.8 [place] # (Auto) 0.7 Eos # (Auto) 0.4 Baso # (Auto) 0.1 Immature Gran # (Auto) 0.15 H Absolute Nucleated RBC 0.00 Immature Gran % 2 H Nucleated RBC % 0 PT 13.0 H INR 1.2 Sodium 142 Potassium 3.7 Chloride 103 Carbon Dioxide 29.8 Anion Gap 9 BUN 23 Creatinine 1.3 Estim Creat Clear Calc 44.5 L eGFR 46 L BUN/Creatinine Ratio 18 Glucose 156 H Calculated Osmolality 289 Calcium 9.4 Corrected Calcium 9.7 Phosphorus 2.7 Magnesium 1.3 L Total Bilirubin 0.6 AST 22 ALT 8 L Alkaline Phosphatase 197 H Total Protein 6.4 Albumin 3.6 Globulin 2.8 Albumin/Globulin Ratio 1.3 ABG Interpretation ABG results: 01/26/25 05:17 VBG pH 7.43 VBG pCO2 37 VBG pO2 59 H VBG Base Excess 0 Quality Measures Quality Measures VTE prophylaxis Advance care planning discussed with:: patient Assessment & Plan Assessment Current Active Medications: Generic Name Dose Route Start Last Admin Trade Name Freq PRN Reason Stop Dose Admin Acetaminophen 650 mg 01/20/25 16:47 02/02/25 05:44 Acetaminophen 325 Mg Tablet PO 02/19/25 16:46 650 mg Q6H PRN Administration PAIN SCALE 1-3 (mild Acetaminophen 650 mg 01/20/25 16:47 01/24/25 19:47 Acetaminophen 325 Mg Tablet PO 02/19/25 16:46 650 mg Q6H PRN Administration Fever >100.4 Albuterol/Ipratropium 3 ml 01/20/25 18:38 01/29/25 21:46 Albuterol/Ipratropium (Duoneb) Rt Lisset 3 Ml Nebu INH 02/19/25 18:37 3 ml Q6HRRT PRN Administration Wheezing Ascorbic Acid 250 mg 01/29/25 09:00 02/02/25 09:26 Ascorbic Acid 250 Mg Tablet PO 02/28/25 08:59 250 mg BID REYNA Administration Carvedilol 3.125 mg 01/29/25 17:30 02/01/25 08:08 Carvedilol 3.125 Mg Tablet PO 02/28/25 17:29 3.125 mg BIDWM REYNA Administration Dextrose 25 ml 01/20/25 18:39 Dextrose 50%-Water Inj 50 Ml Syringe IV 02/19/25 18:38 Q15MIN PRN BG 50-70 responsive npo pt Dextrose 50 ml 01/20/25 18:39 Dextrose 50%-Water Inj 50 Ml Syringe IV 02/19/25 18:38 Q15MIN PRN BG <50 OR BG <70 & pt unresponsive Docusate Sodium 200 mg 01/24/25 21:00 02/02/25 09:25 Docusate Sod 100 Mg Capsule PO 02/23/25 20:59 200 mg QDAY REYNA Administration Protocol Escitalopram Oxalate 20 mg 01/24/25 16:30 02/02/25 09:25 Escitalopram Oxalate 10 Mg Tablet PO 02/23/25 16:29 20 mg QDAY REYNA Administration Folic Acid 1 mg 01/29/25 09:00 02/02/25 09:26 Folic Acid 1 Mg Tablet PO 02/28/25 08:59 1 mg QDAY REYNA Administration Furosemide 40 mg 01/30/25 09:30 01/30/25 10:01 Furosemide 40 Mg Tablet PO 03/01/25 09:29 40 mg QDAY REYNA Administration Glucagon 1 mg 01/20/25 18:39 Glucagon Inj 1 Mg Vial IM Q15MIN PRN BG <70, and no IV access Heparin Sodium (Porcine) 5,000 unit 01/20/25 21:00 02/02/25 09:25 Heparin Sod Inj 5000 Unit/Ml Vial SC 02/03/25 20:59 5,000 unit BID REYNA Administration Albumin Human 12.5 gm in 50 mls @ 100 mls/hr 02/01/25 07:53 02/02/25 09:27 Albuminar-25 Ivpb IV 03/03/25 07:52 100 mls/hr QDAY REYNA Administration Insulin Human Lispro 0 unit 01/20/25 21:00 02/02/25 11:37 Insulin Lispro (Admelog) 1 Unit/0.01 Ml Unit SC 02/19/25 20:59 2 unit ACHS REYNA Administration Protocol Lactulose 45 gm 02/02/25 14:00 02/02/25 13:35 Lactulose Syrup 20 Gm/30 Ml Udc PO 03/04/25 13:59 Not Given TID REYNA Protocol Levothyroxine Sodium 112 mcg 01/21/25 06:00 02/02/25 05:39 Levothyroxine Sodium 112 Mcg Tablet PO 02/20/25 05:59 112 mcg ACBR REYNA Administration Lidocaine 1 patch 01/21/25 10:22 Lidocaine 5% 1 Patch TOP 02/20/25 10:21 UD PRN Back pain Protocol Liothyronine Sodium 10 mcg 01/25/25 14:15 02/02/25 09:26 Liothyronine Sod 5 Mcg Tablet PO 02/24/25 14:14 10 mcg QDAY REYNA Administration Loratadine 10 mg 01/21/25 09:00 02/02/25 09:26 Loratadine 10 Mg Tablet PO 02/20/25 08:59 10 mg QDAY REYNA Administration Melatonin 3 mg 02/01/25 00:05 Melatonin 3 Mg Tablet PO 03/03/25 00:04 HS PRN INSOMNIA Midodrine 5 mg 01/31/25 11:45 02/02/25 13:34 Midodrine 5 Mg Tablet PO 03/02/25 11:44 5 mg TID REYNA Administration Multivitamins 1 tab 01/29/25 09:00 02/02/25 09:26 Multivitamins Tablet PO 02/28/25 08:59 1 tab QDAY REYNA Administration Ondansetron HCl 4 mg 01/20/25 16:47 01/31/25 21:20 Ondansetron Inj 2 Mg/Ml Inj 2 Ml IVP 02/19/25 16:46 4 mg Q6H PRN Administration NAUSEA OR VOMITING Protocol Pantoprazole Sodium 40 mg 01/28/25 09:00 02/02/25 09:26 Pantoprazole 40 Mg Tablet PO 02/27/25 08:59 40 mg BID REYNA Administration Pregabalin 100 mg 02/01/25 21:00 02/02/25 09:26 Pregabalin 50 Mg Capsule PO 03/03/25 20:59 100 mg BID REYNA Administration Simethicone 80 mg 01/26/25 08:38 01/30/25 20:42 Simethicone 80 Mg Chew PO 02/25/25 08:37 80 mg QID PRN Administration GAS Spironolactone 25 mg 01/29/25 10:15 01/31/25 09:11 Spironolactone 25 Mg Tablet PO 02/28/25 10:14 25 mg QDAY REYNA Administration Thiamine HCl 100 mg 01/29/25 09:00 02/02/25 09:26 Thiamine 100 Mg Tablet PO 02/28/25 08:59 100 mg QDAY REYNA Administration Plan Assessment: 64 year-old female with PMHx of alcoholic liver cirrhosis, COPD on home O2, hypothyroidism, asthma, HTN, T2DM and anxiety who presented to the ED with worsening ascites and abdominal discomfort. Admitted under observation for therapeutic/diagnostic paracentesis. Small Bowel Ileus - severe Constipation?not improving Abdominal distention?not improving Patient has not had a bowel movement in a few days KUB showed large stool in rectosigmoid, few air distended small bowel loop CT abdomen pelvis 01/26/25 Cirrhosis with moderate ascites Significant splenomegaly Esophageal and perigastric varices Suspicious for ischemic right colon Small bowel obstruction pattern Recommend surgical consultation AXR 01/30/25 Moderate air and stool throughout the colon including rectum. Mild to moderate air distended small bowel loops in the left abdomen No free air AXR 02/02/25 Numerous air distended small bowel loops No free air Heavy abdominal aortic calcification ? NGT placed with suction until obstruction resolves, Dr. Nagy's recommendations ? Started back on lactulose FL ? GoLytely on HOLD due to severe small bowel ileus versus early obstruction Possible polypharmacy Hx anxiety She is on multiple anxiolytics. Neurology is following, URSULA showed diffuse slowing c/w hepatic encephalopathy ? Holding home PRIMIDONE, ZOLPIDEM in settings of acute encephalopathy. ? Holding home LEXAPRO daily given acute encepahlopathy ? Continuing Home LYRICA BID Acute hepatic encephalopathy (improving) Acute decompensated alcoholic liver cirrhosis Intractable ascites (improving) Advanced portal hypertension (stable) Esophageal varices (stable) Subacute bacterial peritonitis (resolved) Significant alcohol use history, cirrhosis diagnosed in 08/2023. Has been on SPIRONOLACTONE, presenting with 1 month of worsening abdominal ascites. Abdominal CT showed cirrhosis, significant ascites, prominent splenomegaly, anasarca, esophageal and perigastric varices, no bowel obstruction. Ultrasound gallbladder showed distended gallbladder, negative for cholelithiasis, mildly thickened gallbladder wall likely from ascites. Anasarca on exam, with 2+ bilateral extremity edema extending above the knee. MELD score 9 equates to 6% mortality in 3 months. Child-Wilhelm score 7, Class B, indication for transplant evaluation. Paracentesis removed 8.4 L fluids, ALBUMIN was given pre and post para. Paracentesis analysis: WBC 202, peritoneal RBC 1000, total protein 4, albumin 2.2, LD H108, glucose 137, amylase 29 SAAG < 1.1 g/dL Portal hypertension is not necessarily the cause of ascites Ultrasound guided paracentesis removed 4550 cc of fluid Abdominal ultrasound 01/28/2025 showed minimal ascites MELD-Na Score (01/28/2025) 12 points, <2% mortality estimated 90 day mortality Completed 10 days of CEFTRIAXONE for SBP prophylaxis with the addition of few days of FLUCONAZOLE. Afebrile, no leukocytosis ? Holding diuresis for now given slightly worsening kidney function. ? Continue MIDODRINE 5 mg TID PRN ? Continue rifaximin BID ? LACTULOSE FL, goal 3?5 BMs daily ? Continue SPIRONOLACTONE 25 mg daily ? Continue albumin infusions 12.5 g IV daily ? Consider resuming LASIX when able ? Encourage oral intake ? Fluid restriction ? Sodium restriction of 2 g/day Acute kidney injury Prerenal 2/2 to hypotention ?Hepatorenal syndrome Cr 1.3 (1.7) Baseline Cr 0.9 ? Holding diuresis for now ? Monitor renal panel ? Renally dose meds, avoid overdiuresis and NEPHROTOXINS Hypothyroidism TSH 2.33 Free T4 1.15 Thyroxine T3 48.2 Free T3 0.8 Patient was taking liothyronine 20 mcg daily but was not started in hospital - Liothyronine 10 mcg daily started today, half of patient's home dose ? Levothyroxine 112 mcg daily Microcytic anemia (stable) Grade 1 esophageal varices Mild thrombocytopenia (resolved) Hgb 8.9, baseline 11.4. Likely iron deficiency versus cirrhosis. CT showed esophageal and perigastric varices. Reports chronic, recurrent hemorrhoidal bleed, but denies dark stool or upper GI bleed. Had an EGD last year and was abnormal. She is on a 5-year colonoscopy scheduled for colonic polyps, last colonoscopy 5 years ago. B12 and folate WNL. Iron stores are low. EGD showed grade 1 lower third esophageal varices, moderate patchy hemorrhagic characteristic of the gastric antrum. GI recommended outpatient colonoscopy. Hemoglobin stable. ? Transfuse if Hgb less than 8 ? Will need PROPRANOLOL for variceal prophylaxis, if BP can tolerate ? Continue daily oral iron supplements HTN Asymptomatic sinus bradycardia Currently BP soft, normocardic. EKG shows sinus bradycardia, likely cirrhosis related on oral dysfunction versus BETA-BLOCKERS. ? Continue home LEVOTHYROXINE 112 mcg AC BR ? Consider resume home METOPROLOL when able COPD, asthma Chronic respiratory failure, on home 2 L O2 No signs of asthma or COPD exacerbation ? DuoNebs q.6h. PRN ? Will discharge on TRELEGY T2DM A1c 7.7 from 08/2024. ? INSULIN sliding scale ? Accu-Cheks Electrolyte abnormalities ? Daily labs, replete as needed Health maintenance Diet: Renal diet GI prophylaxis: PROTONIX DVT prophylaxis: HEPARIN subcu Antibiotics: No addition CODE STATUS: Full code Case discussed with my attending Dr. Samuel, and senior resident, Dr. Malika Kidd MD PGY-1 Attending Provider Attestation/Addendum I have discussed and was present for the essential components of the history, physical examination, diagnosis, and treatment plan with the resident. I agree with the patient's care as documented by the resident and amended herein by me. Didier Samuel, DO. Although this document has been carefully reviewed, there may still be some phonetic and other typographical errors. These errors are purely grammatical due to imperfections in the software program and should not be construed in any way to compromise the substance of the patient's medical care during this visit.
[2025-02-02] MEDS: MORPHINE SULF INJ 10 MG/ML VIAL 2 MG IVP ×2 (15:50→20:39)
--- NOTE | 2025-02-02 16:54 | XR_ITS ---
Examination: AP chest single view Technique an AP portable upright chest single view Date and time: February 02, 2025 1921 hours INDICATIONS: Post orogastric tube placement FINDINGS: Orogastric tube is in stomach satisfactory position Left base pneumonia Mild prominence cardiac contour Moderate vascular congestion IMPRESSION: Orogastric tube in the stomach satisfactory position
[2025-02-02] MEDS: LACTULOSE SYRUP 20 GM/30 ML UDC 200 GM PR (18:15)
[2025-02-02] MEDS: MELATONIN 3 MG TABLET PO (20:40)
--- NOTE | 2025-02-02 20:57 | PD.IMPROG ---
Documentation for date of: 02/02/25 Subjective Subjective Interval history: Abdominal x-ray shows small bowel dilatation with picture of ileus Case discussed with internal medicine team NGT to intermittent suction Exam Vital Signs Temp Pulse Resp BP Pulse Ox O2 Del Method O2 Flow Rate 96.7 F L 83 24 H 125/65 92 L Nasal Cannula 2 02/02/25 20:00 02/02/25 20:00 02/02/25 20:00 02/02/25 20:00 02/02/25 20:00 02/02/25 20:00 02/02/25 20:00 Objective Labs 02/02/25 05:05 02/02/25 05:05 Labs: Laboratory Results - last 24 hr 02/02/25 05:05 WBC 9.3 RBC 3.63 L Hgb 9.2 L Hct 29.2 L MCV 80 MCH 25.3 MCHC 31.5 RDW Std Deviation 45.9 Plt Count 213 D Neut % (Auto) 67 Lymph % (Auto) 19 [place] % (Auto) 7 Eos % (Auto) 4 Baso % (Auto) 1 Neut # (Auto) 6.3 Lymph # (Auto) 1.8 [place] # (Auto) 0.7 Eos # (Auto) 0.4 Baso # (Auto) 0.1 Immature Gran # (Auto) 0.15 H Absolute Nucleated RBC 0.00 Immature Gran % 2 H Nucleated RBC % 0 PT 13.0 H INR 1.2 Sodium 142 Potassium 3.7 Chloride 103 Carbon Dioxide 29.8 Anion Gap 9 BUN 23 Creatinine 1.3 Estim Creat Clear Calc 44.5 L eGFR 46 L BUN/Creatinine Ratio 18 Glucose 156 H Calculated Osmolality 289 Calcium 9.4 Corrected Calcium 9.7 Phosphorus 2.7 Magnesium 1.3 L Total Bilirubin 0.6 AST 22 ALT 8 L Alkaline Phosphatase 197 H Total Protein 6.4 Albumin 3.6 Globulin 2.8 Albumin/Globulin Ratio 1.3 Impressions Impression: Small bowel ileus versus early small bowel obstruction NGT to intermittent suction ABG Interpretation ABG results: 01/26/25 05:17 VBG pH 7.43 VBG pCO2 37 VBG pO2 59 H VBG Base Excess 0 Assessment & Plan A&P Narrative # Decompensated alcoholic liver disease with advanced portal hypertension esophageal varices and intractable ascites Plan Agree with the IV Lasix Agree with IV albumin Add spironolactone 25 mg p.o. twice daily Scheduled for therapeutic paracentesis Monitor renal function closely Consent obtained for fiberoptic esophagogastroduodenoscopy with possible biopsy possible therapeutic intervention for prophylactic band ligation of the esophageal varices Agree with IV ceftriaxone for the possibility of subacute bacterial peritonitis Will follow the patient Other medical problems include COPD on home oxygen 2 L nasal cannula Essential hypertension Hypothyroidism Hyperlipidemia Thank you very much for the opportunity to participate in care of this patient Time Spent With Patient Time: Total time spent is greater than 50% in coordination of care (as documented) at patient's floor/unit and/or counseling patient:
--- NOTE | 2025-02-02 23:48 | ESPR_ITS ---
Documentation for date of: 02/02/25 Subjective Subjective Interval history: Patient was seen in telemetry today. She complains of abdominal pain from distention and is getting NGT aspiration and is going to have the enema. Exam - Neurology Vital Signs Temp Pulse Resp BP Pulse Ox O2 Del Method O2 Flow Rate 96.7 F L 83 24 H 125/65 92 L Nasal Cannula 2 02/02/25 20:00 02/02/25 21:28 02/02/25 20:00 02/02/25 21:28 02/02/25 20:00 02/02/25 20:00 02/02/25 20:00 Narrative Exam GENERAL APPEARANCE: Well hydrated, well-nourished in no acute distress. HEENT: Normocephalic, atraumatic, extraocular movements intact. Pupils: Equal reacting to light and accommodation NECK: Supple, no JVD or bruits. CARDIOVASULAR: Heart: S1, S2 heard, regular without S3-S4 or murmur no rubs or gallops. LUNGS/CHEST: Clear to auscultation bilaterally. No rails, rhonchi, or wheezing. Normal inspection. ABDOMEN: Distended with ascites EXTREMITIES: Normal inspection and palpation. No edema, clubbing or cyanosis. SKIN: Warm and dry without rashes. Normal inspection. MUSCULOSKELETAL: No cervical, thoracic, lumbar or midline bony tenderness. Normal inspection. NEURO: Alert, awake and oriented x3. Cranial nerves: II through XII grossly intact. Speech and language: Normal with no dysarthria or dysphasia. Motor system: Tone and bulk: Normal: Strength: 5 out of 5 in all 4 extremities; No pronator drift noted. Deep tendon reflexes: 2+ bilaterally symmetrical. Plantar reflex: Downgoing bilaterally. Sensory system: Intact to all modalities of sensation bilaterally. Coordination: Intact to [id number] and [id number] test bilaterally. No ataxia, no dysmetria, or dysdiadochokinesia noted. No intention tremors noted. Gait: walks in the room with a walker. No signs of meningeal irritation noted. PSYCHIATRIC: Normal mood and affect. Objective Labs 02/02/25 05:05 02/02/25 05:05 Labs: Laboratory Results - last 24 hr 02/02/25 05:05 WBC 9.3 RBC 3.63 L Hgb 9.2 L Hct 29.2 L MCV 80 MCH 25.3 MCHC 31.5 RDW Std Deviation 45.9 Plt Count 213 D Neut % (Auto) 67 Lymph % (Auto) 19 [place] % (Auto) 7 Eos % (Auto) 4 Baso % (Auto) 1 Neut # (Auto) 6.3 Lymph # (Auto) 1.8 [place] # (Auto) 0.7 Eos # (Auto) 0.4 Baso # (Auto) 0.1 Immature Gran # (Auto) 0.15 H Absolute Nucleated RBC 0.00 Immature Gran % 2 H Nucleated RBC % 0 PT 13.0 H INR 1.2 Sodium 142 Potassium 3.7 Chloride 103 Carbon Dioxide 29.8 Anion Gap 9 BUN 23 Creatinine 1.3 Estim Creat Clear Calc 44.5 L eGFR 46 L BUN/Creatinine Ratio 18 Glucose 156 H Calculated Osmolality 289 Calcium 9.4 Corrected Calcium 9.7 Phosphorus 2.7 Magnesium 1.3 L Total Bilirubin 0.6 AST 22 ALT 8 L Alkaline Phosphatase 197 H Total Protein 6.4 Albumin 3.6 Globulin 2.8 Albumin/Globulin Ratio 1.3 ABG Interpretation ABG results: 01/26/25 05:17 VBG pH 7.43 VBG pCO2 37 VBG pO2 59 H VBG Base Excess 0 Assessment & Plan Assessment and plan (1) Hepatic encephalopathy: Status: Acute Assessment and plan: Resolving Continue to monitor her closely and restrict the use of opiates Patient might need paracentesis as the abdominal distention gets worse. As the imaging revealed ileus, she is on NGT aspiration and made NPO.
[2025-02-03] VITALS (8 sets, daily range): BP systolic 120–138; BP diastolic 58–67; PULSE 72–92; RESP 10–98; TEMP 36.1–36.3; O2SAT 93–98; BMI 13.0
--- NOTE | 2025-02-03 00:37 | PC.NURSE ---
accessed patient's chart for main nurseDelia RN
[2025-02-03] MEDS: MORPHINE SULF INJ 10 MG/ML VIAL 2 MG IVP ×3 (03:18→22:47)
[2025-02-03] MEDS: LEVOTHYROXINE SODIUM 112 MCG TABLET PO (05:31)
[2025-02-03 05:36] LABS: Basophils # (Auto) 0.1 Thou/mm3 (0.0-0.2); Basophils % (Auto) 1 % (0-2.5); Eosinophils # (Auto) 0.4 Thou/mm3 (0.0-0.5); Eosinophils % (Auto) 5 % (0-10); Hematocrit 27.5 % (36.0-46.0); Hemoglobin 8.9 g/dL (12.0-16.0); Immature Granulocytes Auto 0.14 Thou/mm3 (0.00-0.00); Lymphocytes # (Auto) 2.0 Thou/mm3 (1.0-4.8); Lymphocytes % (Auto) 23 % (10-50); Mean Corpuscular HGB Conc 32.4 g/dl (31.0-37.0); Mean Corpuscular Hemoglobin 25.2 pg (25.0-35.0); Mean Corpuscular Volume 78 fL (80-100); Monocytes # (Auto) 0.8 Thou/mm3 (0.0-0.8); Monocytes % (Auto) 9 % (0-12); Neutrophils # (Auto) 5.3 Thou/mm3 (1.8-7.7); Neutrophils % (Auto) 61 % (37-80); Nucleated Red Blood Cell # 0.00 Thou/mm3 (0.00-0.00); Nucleated Red Blood Cell % 0 /100 WBC (0); Platelet Count 227 Thou/mm3 (140-440); RDW Standard Deviation 45.0 fL (36.4-46.3); Red Blood Count 3.53 Miln/mm3 (4.00-5.20); White Blood Count 8.7 Thou/mm3 (3.6-11.0)
[2025-02-03 05:51] LABS: INR 1.2 (0.9-1.3); Prothrombin Time 13.0 Seconds (9.0-12.2)
[2025-02-03 06:24] LABS: Alanine Aminotransferase 8 U/L (10-49); Albumin, Serum 3.5 gm/dL (3.4-4.8); Albumin/Globulin Ratio 1.3 (1.2-2.2); Alkaline Phosphatase 199 U/L (46-116); Anion Gap 10 (7-16); Aspartate Amino Transferase 31 U/L (0-34); BUN/Creatinine Ratio 19 Ratio (12-20); Bilirubin,Total 0.6 mg/dL (0.3-1.2); Blood Urea Nitrogen 17 mg/dL (9-23); Calcium 9.1 mg/dL (8.3-10.6); Calcium (Corrected) 9.5 mg/dL (8.5-10.1); Carbon Dioxide 29.0 mMol/L (20.0-31.0); Chloride 103 mMol/L (98-107); Creatinine (Component) 0.9 mg/dL (0.6-1.3); Estimated Creatinine Clearance 64.2 mL/min (>60); Globulin 2.7 gm/dL (2.3-3.5); Glucose 146 mg/dL (74-106); Magnesium 1.4 mg/dL (1.6-2.6); Osmolality,Calculated 287 (275-295); Phosphorous 2.2 mg/dL (2.4-5.1); Potassium 4.2 mMol/L (3.4-5.1); Sodium 142 mMol/L (136-145); Total Protein 6.2 gm/dL (5.7-8.2); eGFR > 60 See Note
[2025-02-03] MEDS: HEPARIN SOD INJ 5000 UNIT/ML VIAL SC (09:25)
[2025-02-03] MEDS: Magnesium Sulfate 4 GM Ivpb 4 GM/50 ML BAG IV (09:26)
[2025-02-03] MEDS: POT PHOS 15 mMol in NS 250 ML 15 MMOL/250 ML BAG 62.5 MMOL IV (09:47)
[2025-02-03] MEDS: LACTULOSE SYRUP 20 GM/30 ML UDC 200 GM PR (09:47)
[2025-02-03] MEDS: ALBUMIN HUMAN 25% IVPB 12.5 GM/50 ML BTL IV (09:47)
--- NOTE | 2025-02-03 13:25 | ESPR_ITS ---
<Statement entered by Ainsley Valdez MD - 02/04/25 06:44> I have reviewed the note and agree with the resident's assessment & plan with exceptions as below. I have personally reviewed labs, imaging, home meds/prior records, examined the patient, formulated and discussed management plan with the IM team. Patient examined at bedside today. No acute overnight events. Patient is currently on NG tube, recent imaging shows ileus. Will adjust medicines for p.o. to transition to NG tube. Will also limit sedating and narcotic medicines for improvement of ileus. Will continue with UT lactulose. Repeat hematology and chemistry in AM. GI consult, appreciate recs. Ainsley Valdez, PGY-2 Internal Medicine Documentation for date of: 02/03/25 Subjective Subjective Interval history: Patient examined at bedside. No acute overnight events. NG tube with suction still in place and draining well. Abdominal distention has improved since yesterday, patient not complaining of abdominal pain now. Patient had 2 BMs in the past 24 hours, but still is not meeting bowel movement goals per day. Exam Vital Signs Temp Pulse Resp BP Pulse Ox O2 Del Method O2 Flow Rate 97.0 F 88 13 135/67 H 96 Nasal Cannula 2 02/03/25 08:00 02/03/25 13:15 02/03/25 13:15 02/03/25 08:00 02/03/25 13:15 02/03/25 08:00 02/03/25 13:15 Narrative Exam GENERAL Normal appearing adult female, NAD. HEENT NCAT. GEOVANNI. Oral mucosa is moist. Patent Nares NECK Supple, nontender, no JVD. CHEST RRR, no m/g/r, bilateral inspiratory crackles,no work of breathing, symmetrical expansion. ABDOMEN Soft, distention improved since yesterday, minimal tenderness throughout. No guarding/rebound tenderness/masses. Bowel sounds presents EXTREMITIES No edema/cyanosis. SKIN Warm and dry, no jaundice/rashes. Slightly pale. NEUROMUSCULAR Asterixis bilaterally of upper extremities. Moves all 4 extremities slowly, with full ROM. No focal neurologic deficits. PSYCHIATRY Normal mood and affect, cooperative, no hallucinations Objective Labs 02/04/25 04:57 02/04/25 04:57 Labs: Laboratory Results - last 24 hr 02/03/25 05:02 WBC 8.7 RBC 3.53 L Hgb 8.9 L Hct 27.5 L MCV 78 L MCH 25.2 MCHC 32.4 RDW Std Deviation 45.0 Plt Count 227 Neut % (Auto) 61 Lymph % (Auto) 23 [place] % (Auto) 9 Eos % (Auto) 5 Baso % (Auto) 1 Neut # (Auto) 5.3 Lymph # (Auto) 2.0 [place] # (Auto) 0.8 Eos # (Auto) 0.4 Baso # (Auto) 0.1 Immature Gran # (Auto) 0.14 H Absolute Nucleated RBC 0.00 Immature Gran % 2 H Nucleated RBC % 0 PT 13.0 H INR 1.2 Sodium 142 Potassium 4.2 D Chloride 103 Carbon Dioxide 29.0 Anion Gap 10 BUN 17 Creatinine 0.9 Estim Creat Clear Calc 64.2 eGFR > 60 BUN/Creatinine Ratio 19 Glucose 146 H Calculated Osmolality 287 Calcium 9.1 Corrected Calcium 9.5 Phosphorus 2.2 L Magnesium 1.4 L Total Bilirubin 0.6 AST 31 ALT 8 L Alkaline Phosphatase 199 H Total Protein 6.2 Albumin 3.5 Globulin 2.7 Albumin/Globulin Ratio 1.3 ABG Interpretation ABG results: 01/26/25 05:17 VBG pH 7.43 VBG pCO2 37 VBG pO2 59 H VBG Base Excess 0 Quality Measures Quality Measures VTE prophylaxis Advance care planning discussed with:: patient Assessment & Plan Assessment Current Active Medications: Generic Name Dose Route Start Last Admin Trade Name Freq PRN Reason Stop Dose Admin Acetaminophen 650 mg 01/20/25 16:47 02/02/25 05:44 Acetaminophen 325 Mg Tablet PO 02/19/25 16:46 650 mg Q6H PRN Administration PAIN SCALE 1-3 (mild Acetaminophen 650 mg 01/20/25 16:47 01/24/25 19:47 Acetaminophen 325 Mg Tablet PO 02/19/25 16:46 650 mg Q6H PRN Administration Fever >100.4 Albuterol/Ipratropium 3 ml 01/20/25 18:38 01/29/25 21:46 Albuterol/Ipratropium (Duoneb) Rt Lisset 3 Ml Nebu INH 02/19/25 18:37 3 ml Q6HRRT PRN Administration Wheezing Ascorbic Acid 250 mg 01/29/25 09:00 02/02/25 20:40 Ascorbic Acid 250 Mg Tablet PO 02/28/25 08:59 250 mg BID REYNA Administration Carvedilol 3.125 mg 01/29/25 17:30 02/01/25 08:08 Carvedilol 3.125 Mg Tablet PO 02/28/25 17:29 3.125 mg BIDWM REYNA Administration Dextrose 25 ml 01/20/25 18:39 Dextrose 50%-Water Inj 50 Ml Syringe IV 02/19/25 18:38 Q15MIN PRN BG 50-70 responsive npo pt Dextrose 50 ml 01/20/25 18:39 Dextrose 50%-Water Inj 50 Ml Syringe IV 02/19/25 18:38 Q15MIN PRN BG <50 OR BG <70 & pt unresponsive Docusate Sodium 200 mg 01/24/25 21:00 02/02/25 09:25 Docusate Sod 100 Mg Capsule PO 02/23/25 20:59 200 mg QDAY REYNA Administration Protocol Escitalopram Oxalate 20 mg 01/24/25 16:30 02/02/25 09:25 Escitalopram Oxalate 10 Mg Tablet PO 02/23/25 16:29 20 mg QDAY REYNA Administration Folic Acid 1 mg 01/29/25 09:00 02/02/25 09:26 Folic Acid 1 Mg Tablet PO 02/28/25 08:59 1 mg QDAY REYNA Administration Furosemide 40 mg 01/30/25 09:30 01/30/25 10:01 Furosemide 40 Mg Tablet PO 03/01/25 09:29 40 mg QDAY REYNA Administration Glucagon 1 mg 01/20/25 18:39 Glucagon Inj 1 Mg Vial IM Q15MIN PRN BG <70, and no IV access Heparin Sodium (Porcine) 5,000 unit 01/20/25 21:00 02/03/25 09:25 Heparin Sod Inj 5000 Unit/Ml Vial SC 02/03/25 20:59 5,000 unit BID REYNA Administration Albumin Human 12.5 gm in 50 mls @ 100 mls/hr 02/01/25 07:53 02/03/25 09:47 Albuminar-25 Ivpb IV 03/03/25 07:52 100 mls/hr QDAY REYNA Administration Insulin Human Lispro 0 unit 01/20/25 21:00 02/02/25 20:32 Insulin Lispro (Admelog) 1 Unit/0.01 Ml Unit SC 02/19/25 20:59 Not Given ACHS REYNA Protocol Lactulose 200 gm 02/02/25 15:30 02/03/25 09:47 Lactulose Syrup 20 Gm/30 Ml Udc UT 03/04/25 15:29 200 gm QDAY REYNA Administration Protocol Levothyroxine Sodium 112 mcg 01/21/25 06:00 02/03/25 05:31 Levothyroxine Sodium 112 Mcg Tablet PO 02/20/25 05:59 112 mcg ACBR REYNA Administration Lidocaine 1 patch 01/21/25 10:22 Lidocaine 5% 1 Patch TOP 02/20/25 10:21 UD PRN Back pain Protocol Liothyronine Sodium 10 mcg 01/25/25 14:15 02/02/25 09:26 Liothyronine Sod 5 Mcg Tablet PO 02/24/25 14:14 10 mcg QDAY REYNA Administration Loratadine 10 mg 01/21/25 09:00 02/02/25 09:26 Loratadine 10 Mg Tablet PO 02/20/25 08:59 10 mg QDAY REYNA Administration Melatonin 3 mg 02/02/25 21:00 02/02/25 20:40 Melatonin 3 Mg Tablet PO 03/04/25 20:59 3 mg HS REYNA Administration Midodrine 5 mg 01/31/25 11:45 02/02/25 21:28 Midodrine 5 Mg Tablet PO 03/02/25 11:44 Not Given TID REYNA Morphine Sulfate 2 mg 02/02/25 16:35 02/03/25 03:18 Morphine Sulf Inj 10 Mg/Ml Vial IVP 02/07/25 16:34 2 mg Q6HR PRN Administration Pain 6-10 Multivitamins 1 tab 01/29/25 09:00 02/02/25 09:26 Multivitamins Tablet PO 02/28/25 08:59 1 tab QDAY REYNA Administration Ondansetron HCl 4 mg 01/20/25 16:47 01/31/25 21:20 Ondansetron Inj 2 Mg/Ml Inj 2 Ml IVP 02/19/25 16:46 4 mg Q6H PRN Administration NAUSEA OR VOMITING Protocol Pantoprazole Sodium 40 mg 02/03/25 09:30 02/03/25 09:50 Pantoprazole Inj 40 Mg Vial IVP 03/05/25 09:29 40 mg BID REYNA Administration Pregabalin 100 mg 02/01/25 21:00 02/02/25 20:39 Pregabalin 50 Mg Capsule PO 03/03/25 20:59 100 mg BID REYNA Administration Simethicone 80 mg 01/26/25 08:38 01/30/25 20:42 Simethicone 80 Mg Chew PO 02/25/25 08:37 80 mg QID PRN Administration GAS Spironolactone 25 mg 01/29/25 10:15 01/31/25 09:11 Spironolactone 25 Mg Tablet PO 02/28/25 10:14 25 mg QDAY REYNA Administration Thiamine HCl 100 mg 01/29/25 09:00 02/02/25 09:26 Thiamine 100 Mg Tablet PO 02/28/25 08:59 100 mg QDAY REYNA Administration Plan Assessment: 64 year-old female with PMHx of alcoholic liver cirrhosis, COPD on home O2, hypothyroidism, asthma, HTN, T2DM and anxiety who presented to the ED with worsening ascites and abdominal discomfort. Admitted under observation for therapeutic/diagnostic paracentesis. #Small Bowel Ileus - severe #Constipation?slowly improving #Abdominal distention?slowly improving AXR 02/02/25: Severe small bowel ileus versus early obstruction Plan ? NGT placed with suction until obstruction resolves, Dr. Nagy's recommendations ? Started back on lactulose UT ? GoLytely on HOLD due to severe small bowel ileus versus early obstruction #Acute hepatic encephalopathy (improving) #Acute decompensated alcoholic liver cirrhosis #Intractable ascites (improving) #Advanced portal hypertension (stable) #Esophageal varices (stable) #Subacute bacterial peritonitis (resolved) Significant alcohol use history, cirrhosis diagnosed in 08/2023. Has been on SPIRONOLACTONE, presenting with 1 month of worsening abdominal ascites. Abdominal CT showed cirrhosis, significant ascites, prominent splenomegaly, anasarca, esophageal and perigastric varices, no bowel obstruction. MELD score 9 equates to 6% mortality in 3 months. Child-Wilhelm score 7, Class B, indication for transplant evaluation. SAAG < 1.1 g/dL Portal hypertension is not necessarily the cause of ascites MELD-Na Score (01/28/2025) 12 points, <2% mortality estimated 90 day mortality Completed 10 days of CEFTRIAXONE for SBP prophylaxis with the addition of few days of FLUCONAZOLE. Afebrile, no leukocytosis Plan: ? Holding diuresis for now given slightly worsening kidney function. ? Continue MIDODRINE 5 mg TID ? Continue rifaximin BID ? LACTULOSE UT, goal 3?5 BMs daily ? Continue SPIRONOLACTONE 25 mg daily ? Continue albumin infusions 12.5 g IV daily ? Consider resuming LASIX when able ? Encourage oral intake ? Fluid restriction ? Sodium restriction of 2 g/day Possible polypharmacy Hx anxiety She is on multiple anxiolytics. Neurology is following, URSULA showed diffuse slowing c/w hepatic encephalopathy ? Holding home PRIMIDONE, ZOLPIDEM in settings of acute encephalopathy. ? Holding home LEXAPRO daily given acute encepahlopathy ? Continuing Home LYRICA BID Hypothyroidism TSH 2.33 Free T4 1.15 Thyroxine T3 48.2 Free T3 0.8 Patient was taking liothyronine 20 mcg daily but was not started in hospital - Liothyronine 10 mcg daily started today, half of patient's home dose ? Levothyroxine 112 mcg daily #Microcytic anemia (stable) #Grade 1 esophageal varices #Mild thrombocytopenia (resolved) Hgb baseline 11.4. Likely iron deficiency versus cirrhosis. CT showed esophageal and perigastric varices. Reports chronic, recurrent hemorrhoidal bleed, but denies dark stool or upper GI bleed. Had an EGD last year and was abnormal. She is on a 5-year colonoscopy scheduled for colonic polyps, last colonoscopy 5 years ago. B12 and folate WNL. Iron stores are low. EGD showed grade 1 lower third esophageal varices, moderate patchy hemorrhagic characteristic of the gastric antrum. GI recommended outpatient colonoscopy. Hemoglobin stable. ? Transfuse if Hgb less than 8 ? Will need PROPRANOLOL for variceal prophylaxis, if BP can tolerate ? Continue daily oral iron supplements #HTN #Asymptomatic sinus bradycardia Currently BP soft, normocardic. EKG shows sinus bradycardia, likely cirrhosis related on oral dysfunction versus BETA-BLOCKERS. ? Continue home LEVOTHYROXINE 112 mcg AC BR ? Consider resume home METOPROLOL when able #COPD, asthma #Chronic respiratory failure, on home 2 L O2 No signs of asthma or COPD exacerbation ? DuoNebs q.6h. PRN ? Will discharge on TRELEGY #T2DM A1c 7.7 from 08/2024. ? INSULIN sliding scale ? Accu-Cheks #Acute kidney injury -resolved #Prerenal 2/2 to hypotention Cr 0.9 Baseline Cr 0.9 ? Holding diuresis for now ? Monitor renal panel ? Renally dose meds, avoid overdiuresis and NEPHROTOXINS #Electrolyte abnormalities ? Daily labs, replete as needed Health maintenance Diet: Renal diet GI prophylaxis: PROTONIX DVT prophylaxis: HEPARIN subcu Antibiotics: No addition CODE STATUS: Full code Case discussed with my attending Dr. Samuel, and senior resident, Dr. José Miguel Kidd MD PGY-1 Attending Provider Attestation/Addendum I have discussed and was present for the essential components of the history, physical examination, diagnosis, and treatment plan with the resident. I agree with the patient's care as documented by the resident and amended herein by me. Didier Samuel DO. Although this document has been carefully reviewed, there may still be some phonetic and other typographical errors. These errors are purely grammatical due to imperfections in the software program and should not be construed in any way to compromise the substance of the patient's medical care during this visit. Patient seen and evaluated this AM. No acute events overnight, vital signs stable, patient afebrile, patient remains on 2 L nasal cannula, SpO2 94%, 3 bowel movements recorded overnight. I/Os 600/1700 mL. Patient's abdominal distention is significantly improved this morning, OG tube in place on intermittent suction, minimal output noted. Will continue OG tube at this time pending specialist recommendations, SNF authorization has been obtained, likely discharge to SNF in 1 to 2 days pending further clinical improvement.
--- NOTE | 2025-02-03 15:07 | PC.NURSE ---
Received phone call from Swati Liriano, from [facility] insurance regarding SNF authorization, and requesting for MD to have a peer to peer discussion with their medical physiologist before they make a decision, and Swati request that they have that discussion before February 04, 10 am pac[place] time. Relayed information to attending Dr. Samuel to call [phone] option 5 with reference number [id number].
--- NOTE | 2025-02-03 15:25 | PC.URM ---
I spoke with JOSE Coon from [facility] who tells me that after the peer to peer it was determined that patient is denied for SNF at this time as she hasn't been able to participate with therapy. The facility can reapply for auth. Ref#[id number]
--- NOTE | 2025-02-03 16:10 | PC.SS ---
follow up note: Patient is not medically stable. Tentative d/c plan is for patient to d/c to [facility]. SNF is pending auth. Today, we received a request from [employer] to contact them for a peer:peer before tomorrow noon. Attending physician spoke to insurance physician and their team stated they are denying the auth at this time because patient is not medically ready yet. We will need to resubmit once patient is closer to discharge. SS will follow up with SNF when patient is closer to discharge. Will need to resubmit for auth.
--- NOTE | 2025-02-03 19:29 | ESPR_ITS ---
<Statement entered by Erin Tomas MD - 02/07/25 12:22> The patient continues to feel little better but still in good spirit does not complain of chest pain shortness of breath cardiac muniz quite stable we will sign off the cardiac follow-up for now agree with the treatment plan recommendation as documented by PGY 2 Dr. Kennedy primary team team call me if patient has any cardiac decompensation as sudden or cardiac arrhythmias. Documentation for date of: 02/03/25 Subjective Subjective Interval history: Pt is seen at bedside, appears to be uncomfortable. Although pt states she is doing fine. NG tube is placed due to possible SBO with minimal output of 75cc. Pt continues to have large loose bowel movements. Has remained afebrile and no white count. vitals are stable, labs are reviewed. Pt has no cardiac complaints. Pt's echo during this hospitalizations also had normal findings. Hypotension has resolved. Pt's symptoms are secondary to End stage liver disease, no cardiac issues. cardiac health remains stable. therefore cardiology team will sign off. Exam Vital Signs Temp Pulse Resp BP Pulse Ox O2 Del Method O2 Flow Rate 97.0 F 89 14 129/58 L 98 Nasal Cannula 2 02/03/25 16:00 02/03/25 18:52 02/03/25 18:52 02/03/25 16:00 02/03/25 18:52 02/03/25 16:00 02/03/25 18:52 Narrative Exam GENERAL: A&Ox2, chronically ill appearing, Awake, Not in acute distress NEURO: no focal neurological deficits HEENT: Atraumatic, Normocephalic. mucous membranes moist. Eyes open, symmetrical, & clear HEART: Normal Heart Sounds, regular rate and rhythm LUNGS: no crackles ABDOMEN: moderatly distended abdomen with diffuse tenderness EXTREMITIES: no edema noted in LE, no tenderness, able to move all 4 extremities, pedal pulses palpated Objective Labs 02/03/25 05:02 02/03/25 05:02 Labs: Laboratory Results - last 24 hr 02/03/25 05:02 WBC 8.7 RBC 3.53 L Hgb 8.9 L Hct 27.5 L MCV 78 L MCH 25.2 MCHC 32.4 RDW Std Deviation 45.0 Plt Count 227 Neut % (Auto) 61 Lymph % (Auto) 23 [place] % (Auto) 9 Eos % (Auto) 5 Baso % (Auto) 1 Neut # (Auto) 5.3 Lymph # (Auto) 2.0 [place] # (Auto) 0.8 Eos # (Auto) 0.4 Baso # (Auto) 0.1 Immature Gran # (Auto) 0.14 H Absolute Nucleated RBC 0.00 Immature Gran % 2 H Nucleated RBC % 0 PT 13.0 H INR 1.2 Sodium 142 Potassium 4.2 D Chloride 103 Carbon Dioxide 29.0 Anion Gap 10 BUN 17 Creatinine 0.9 Estim Creat Clear Calc 64.2 eGFR > 60 BUN/Creatinine Ratio 19 Glucose 146 H Calculated Osmolality 287 Calcium 9.1 Corrected Calcium 9.5 Phosphorus 2.2 L Magnesium 1.4 L Total Bilirubin 0.6 AST 31 ALT 8 L Alkaline Phosphatase 199 H Total Protein 6.2 Albumin 3.5 Globulin 2.7 Albumin/Globulin Ratio 1.3 ABG Interpretation ABG results: 01/26/25 05:17 VBG pH 7.43 VBG pCO2 37 VBG pO2 59 H VBG Base Excess 0 Quality Measures Quality Measures VTE prophylaxis Advance care planning discussed with:: patient Assessment & Plan Assessment Current Active Medications: Generic Name Dose Route Start Last Admin Trade Name Freq PRN Reason Stop Dose Admin Acetaminophen 650 mg 01/20/25 16:47 02/02/25 05:44 Acetaminophen 325 Mg Tablet PO 02/19/25 16:46 650 mg Q6H PRN Administration PAIN SCALE 1-3 (mild Acetaminophen 650 mg 01/20/25 16:47 01/24/25 19:47 Acetaminophen 325 Mg Tablet PO 02/19/25 16:46 650 mg Q6H PRN Administration Fever >100.4 Albuterol/Ipratropium 3 ml 01/20/25 18:38 01/29/25 21:46 Albuterol/Ipratropium (Duoneb) Rt L[place] 3 Ml Nebu INH 02/19/25 18:37 3 ml Q6HRRT PRN Administration Wheezing Ascorbic Acid 250 mg 01/29/25 09:00 02/03/25 14:23 Ascorbic Acid 250 Mg Tablet PO 02/28/25 08:59 Not Given BID REYNA Carvedilol 3.125 mg 01/29/25 17:30 02/01/25 08:08 Carvedilol 3.125 Mg Tablet PO 02/28/25 17:29 3.125 mg BIDWM REYNA Administration Dextrose 25 ml 01/20/25 18:39 Dextrose 50%-Water Inj 50 Ml Syringe IV 02/19/25 18:38 Q15MIN PRN BG 50-70 responsive npo pt Dextrose 50 ml 01/20/25 18:39 Dextrose 50%-Water Inj 50 Ml Syringe IV 02/19/25 18:38 Q15MIN PRN BG <50 OR BG <70 & pt unresponsive Docusate Sodium 200 mg 01/24/25 21:00 02/03/25 14:23 Docusate Sod 100 Mg Capsule PO 02/23/25 20:59 Not Given QDAY [facility] Protocol Escitalopram Oxalate 20 mg 01/24/25 16:30 02/03/25 14:23 Escitalopram Oxalate 10 Mg Tablet PO 02/23/25 16:29 Not Given QDAY REYNA Folic Acid 1 mg 01/29/25 09:00 02/03/25 14:23 Folic Acid 1 Mg Tablet PO 02/28/25 08:59 Not Given QDAY REYNA Furosemide 40 mg 01/30/25 09:30 01/30/25 10:01 Furosemide 40 Mg Tablet PO 03/01/25 09:29 40 mg QDAY REYNA Administration Glucagon 1 mg 01/20/25 18:39 Glucagon Inj 1 Mg Vial IM Q15MIN PRN BG <70, and no IV access Heparin Sodium (Porcine) 5,000 unit 01/20/25 21:00 02/03/25 09:25 Heparin Sod Inj 5000 Unit/Ml Vial SC 02/03/25 20:59 5,000 unit BID REYNA Administration Albumin Human 12.5 gm in 50 mls @ 100 mls/hr 02/01/25 07:53 02/03/25 09:47 Albuminar-25 Ivpb IV 03/03/25 07:52 100 mls/hr QDAY REYNA Administration Insulin Human Lispro 0 unit 02/03/25 18:00 Insulin Lispro (Admelog) 1 Unit/0.01 Ml Unit SC 02/19/25 20:59 Q6HR REYNA Protocol Lactulose 200 gm 02/02/25 15:30 02/03/25 09:47 Lactulose Syrup 20 Gm/30 Ml Udc [place] 03/04/25 15:29 200 gm QDAY REYNA Administration Protocol Levothyroxine Sodium 112 mcg 01/21/25 06:00 02/03/25 05:31 Levothyroxine Sodium 112 Mcg Tablet PO 02/20/25 05:59 112 mcg ACBR REYNA Administration Lidocaine 1 patch 01/21/25 10:22 Lidocaine 5% 1 Patch TOP 02/20/25 10:21 UD PRN Back pain Protocol Liothyronine Sodium 10 mcg 01/25/25 14:15 02/03/25 14:23 Liothyronine Sod 5 Mcg Tablet PO 02/24/25 14:14 Not Given QDAY REYNA Loratadine 10 mg 01/21/25 09:00 02/03/25 14:23 Loratadine 10 Mg Tablet PO 02/20/25 08:59 Not Given QDAY REYNA Melatonin 3 mg 02/02/25 21:00 02/02/25 20:40 Melatonin 3 Mg Tablet PO 03/04/25 20:59 3 mg HS REYNA Administration Midodrine 5 mg 01/31/25 11:45 02/03/25 14:26 Midodrine 5 Mg Tablet PO 03/02/25 11:44 Not Given TID REYNA Morphine Sulfate 2 mg 02/02/25 16:35 02/03/25 17:16 Morphine Sulf Inj 10 Mg/Ml Vial IVP 02/07/25 16:34 2 mg Q6HR PRN Administration Pain 6-10 Multivitamins 1 tab 01/29/25 09:00 02/03/25 14:24 Multivitamins Tablet PO 02/28/25 08:59 Not Given QDAY REYNA Ondansetron HCl 4 mg 01/20/25 16:47 01/31/25 21:20 Ondansetron Inj 2 Mg/Ml Inj 2 Ml IVP 02/19/25 16:46 4 mg Q6H PRN Administration NAUSEA OR VOMITING Protocol Pantoprazole Sodium 40 mg 02/03/25 09:30 02/03/25 09:50 Pantoprazole Inj 40 Mg Vial IVP 03/05/25 09:29 40 mg BID REYNA Administration Pregabalin 100 mg 02/01/25 21:00 02/03/25 14:24 Pregabalin 50 Mg Capsule PO 03/03/25 20:59 Not Given BID REYNA Simethicone 80 mg 01/26/25 08:38 01/30/25 20:42 Simethicone 80 Mg Chew PO 02/25/25 08:37 80 mg QID PRN Administration GAS Spironolactone 25 mg 01/29/25 10:15 01/31/25 09:11 Spironolactone 25 Mg Tablet PO 02/28/25 10:14 25 mg QDAY REYNA Administration Thiamine HCl 100 mg 01/29/25 09:00 02/03/25 14:24 Thiamine 100 Mg Tablet PO 02/28/25 08:59 Not Given QDAY REYNA Plan Ms. Mario is a 64-year-old female with past medical history significant for decompensated liver cirrhosis (diagnosed in October 2024), COPD on home oxygen, asthma, hypothyroidism, hypertension, type 2 diabetes and anxiety presented to the ED on 01/20/25 complaining of worsening abdominal pain and distention. Cardiology is consulted due to tachycardia and hypotension. #Hypotension- resolved #Portal hypertension #Hepatorenal Syndrome #Syncopal episode #Pulmonary arterial hypertension -ruled out #Sinus tachycardia secondary to fevers- resolved -Patient has been in the hospital since 01/20 however since midnight overnight patient has been having sinus tachycardia and fever. Telemetry is reviewed patient is in sinus rhythm. Since patient is a high risk for peritonitis in the setting of end-stage liver disease patient's tachycardia is likely from the fevers indicating possible source of infection. -Low cardiac suspicion for her symptoms right now, patient's hypotension is due to current illness as patient had 8.4 L of fluid removed via paracentesis. EKG: Sinus tachycardia with rate of 120 and QTc 449 Plan: -Continue treating patient's decompensated liver cirrhosis -Continue broad-spectrum IV antibiotics for possible source of infection -Currently coreg, spironolactone and lasix on hold by primary team due to BP, may resume as tolerated -Recommend albumin with future paracenthesis -Continue low-sodium 2 g diet -Strict ins and outs -Echo showed good cardiac activity with EF >60% and no evidence of PAH #End-stage liver disease #Altered mental status- improved #[id number] type 2 diabetes #Primary hypertension #Hypothyroidism #COPD #Asthma #Anxiety Management as per primary team Assessment and plan discussed with my attending First Aid Teacher Dr. Thom Kennedy (PGY-2)- Internal medicine resident
--- NOTE | 2025-02-03 21:05 | ESPR_ITS ---
Documentation for date of: 02/03/25 Subjective Subjective Interval history: NGT in place Abdominal distention has gone down quite a bit Passing flatus Exam Vital Signs Temp Pulse Resp BP Pulse Ox O2 Del Method O2 Flow Rate 97.0 F 85 16 138/64 H 98 Nasal Cannula 2 02/03/25 20:00 02/03/25 20:00 02/03/25 20:00 02/03/25 20:00 02/03/25 20:00 02/03/25 20:00 02/03/25 20:00 Objective Labs 02/03/25 05:02 02/03/25 05:02 Labs: Laboratory Results - last 24 hr 02/03/25 05:02 WBC 8.7 RBC 3.53 L Hgb 8.9 L Hct 27.5 L MCV 78 L MCH 25.2 MCHC 32.4 RDW Std Deviation 45.0 Plt Count 227 Neut % (Auto) 61 Lymph % (Auto) 23 [place] % (Auto) 9 Eos % (Auto) 5 Baso % (Auto) 1 Neut # (Auto) 5.3 Lymph # (Auto) 2.0 [place] # (Auto) 0.8 Eos # (Auto) 0.4 Baso # (Auto) 0.1 Immature Gran # (Auto) 0.14 H Absolute Nucleated RBC 0.00 Immature Gran % 2 H Nucleated RBC % 0 PT 13.0 H INR 1.2 Sodium 142 Potassium 4.2 D Chloride 103 Carbon Dioxide 29.0 Anion Gap 10 BUN 17 Creatinine 0.9 Estim Creat Clear Calc 64.2 eGFR > 60 BUN/Creatinine Ratio 19 Glucose 146 H Calculated Osmolality 287 Calcium 9.1 Corrected Calcium 9.5 Phosphorus 2.2 L Magnesium 1.4 L Total Bilirubin 0.6 AST 31 ALT 8 L Alkaline Phosphatase 199 H Total Protein 6.2 Albumin 3.5 Globulin 2.7 Albumin/Globulin Ratio 1.3 Impressions Impression: Abdominal distention improved with the NGT Ileus improving Continue current management KUB a.m. ABG Interpretation ABG results: 01/26/25 05:17 VBG pH 7.43 VBG pCO2 37 VBG pO2 59 H VBG Base Excess 0 Assessment & Plan A&P Narrative # Decompensated alcoholic liver disease with advanced portal hypertension esophageal varices and intractable ascites Plan Agree with the IV Lasix Agree with IV albumin Add spironolactone 25 mg p.o. twice daily Scheduled for therapeutic paracentesis Monitor renal function closely Consent obtained for fiberoptic esophagogastroduodenoscopy with possible biopsy possible therapeutic intervention for prophylactic band ligation of the esophageal varices Agree with IV ceftriaxone for the possibility of subacute bacterial peritonitis Will follow the patient Other medical problems include COPD on home oxygen 2 L nasal cannula Essential hypertension Hypothyroidism Hyperlipidemia Thank you very much for the opportunity to participate in care of this patient Time Spent With Patient Time: Total time spent is greater than 50% in coordination of care (as documented) at patient's floor/unit and/or counseling patient:
--- NOTE | 2025-02-03 21:16 | ESPR_ITS ---
Documentation for date of: 02/03/25 Subjective Subjective Interval history: Patient was seen in telemetry today. She is getting NGT aspiration and is doing better overall. Exam - Neurology Vital Signs Temp Pulse Resp BP Pulse Ox O2 Del Method O2 Flow Rate 97.0 F 85 16 138/64 H 98 Nasal Cannula 2 02/03/25 20:00 02/03/25 20:00 02/03/25 20:00 02/03/25 20:00 02/03/25 20:00 02/03/25 20:00 02/03/25 20:00 Narrative Exam GENERAL APPEARANCE: Well hydrated, well-nourished in no acute distress. HEENT: Normocephalic, atraumatic, extraocular movements intact. Pupils: Equal reacting to light and accommodation NECK: Supple, no JVD or bruits. CARDIOVASULAR: Heart: S1, S2 heard, regular without S3-S4 or murmur no rubs or gallops. LUNGS/CHEST: Clear to auscultation bilaterally. No rails, rhonchi, or wheezing. Normal inspection. ABDOMEN: Distended with ascites EXTREMITIES: Normal inspection and palpation. No edema, clubbing or cyanosis. SKIN: Warm and dry without rashes. Normal inspection. MUSCULOSKELETAL: No cervical, thoracic, lumbar or midline bony tenderness. Normal inspection. NEURO: Alert, awake and oriented x3. Cranial nerves: II through XII grossly intact. Speech and language: Normal with no dysarthria or dysphasia. Motor system: Tone and bulk: Normal: Strength: 5 out of 5 in all 4 extremities; No pronator drift noted. Deep tendon reflexes: 2+ bilaterally symmetrical. Plantar reflex: Downgoing bilaterally. Sensory system: Intact to all modalities of sensation bilaterally. Coordination: Intact to [id number] and [id number] test bilaterally. No ataxia, no dysmetria, or dysdiadochokinesia noted. No intention tremors noted. Gait: walks in the room with a walker. No signs of meningeal irritation noted. PSYCHIATRIC: Normal mood and affect. Objective Labs 02/03/25 05:02 02/03/25 05:02 Labs: Laboratory Results - last 24 hr 02/03/25 05:02 WBC 8.7 RBC 3.53 L Hgb 8.9 L Hct 27.5 L MCV 78 L MCH 25.2 MCHC 32.4 RDW Std Deviation 45.0 Plt Count 227 Neut % (Auto) 61 Lymph % (Auto) 23 [place] % (Auto) 9 Eos % (Auto) 5 Baso % (Auto) 1 Neut # (Auto) 5.3 Lymph # (Auto) 2.0 [place] # (Auto) 0.8 Eos # (Auto) 0.4 Baso # (Auto) 0.1 Immature Gran # (Auto) 0.14 H Absolute Nucleated RBC 0.00 Immature Gran % 2 H Nucleated RBC % 0 PT 13.0 H INR 1.2 Sodium 142 Potassium 4.2 D Chloride 103 Carbon Dioxide 29.0 Anion Gap 10 BUN 17 Creatinine 0.9 Estim Creat Clear Calc 64.2 eGFR > 60 BUN/Creatinine Ratio 19 Glucose 146 H Calculated Osmolality 287 Calcium 9.1 Corrected Calcium 9.5 Phosphorus 2.2 L Magnesium 1.4 L Total Bilirubin 0.6 AST 31 ALT 8 L Alkaline Phosphatase 199 H Total Protein 6.2 Albumin 3.5 Globulin 2.7 Albumin/Globulin Ratio 1.3 ABG Interpretation ABG results: 01/26/25 05:17 VBG pH 7.43 VBG pCO2 37 VBG pO2 59 H VBG Base Excess 0 Assessment & Plan Assessment and plan (1) Hepatic encephalopathy: Status: Acute Assessment and plan: Resolving Continue to monitor her closely and restrict the use of opiates Patient might need paracentesis as the abdominal distention gets worse. As the imaging revealed ileus, she is on NGT aspiration and made NPO.
[2025-02-04] VITALS (9 sets, daily range): BP systolic 126–134; BP diastolic 62–73; PULSE 82–97; RESP 14–20; TEMP 36.1–36.4; O2SAT 92–99
[2025-02-04 05:27] LABS: Basophils # (Auto) 0.1 Thou/mm3 (0.0-0.2); Basophils % (Auto) 1 % (0-2.5); Eosinophils # (Auto) 0.3 Thou/mm3 (0.0-0.5); Eosinophils % (Auto) 3 % (0-10); Hematocrit 29.8 % (36.0-46.0); Hemoglobin 9.2 g/dL (12.0-16.0); Immature Granulocytes Auto 0.09 Thou/mm3 (0.00-0.00); Lymphocytes # (Auto) 1.5 Thou/mm3 (1.0-4.8); Lymphocytes % (Auto) 16 % (10-50); Mean Corpuscular HGB Conc 30.9 g/dl (31.0-37.0); Mean Corpuscular Hemoglobin 25.1 pg (25.0-35.0); Mean Corpuscular Volume 81 fL (80-100); Monocytes # (Auto) 0.7 Thou/mm3 (0.0-0.8); Monocytes % (Auto) 7 % (0-12); Neutrophils # (Auto) 6.8 Thou/mm3 (1.8-7.7); Neutrophils % (Auto) 72 % (37-80); Nucleated Red Blood Cell # 0.00 Thou/mm3 (0.00-0.00); Nucleated Red Blood Cell % 0 /100 WBC (0); Platelet Count 244 Thou/mm3 (140-440); RDW Standard Deviation 49.0 fL (36.4-46.3); Red Blood Count 3.66 Miln/mm3 (4.00-5.20); White Blood Count 9.5 Thou/mm3 (3.6-11.0)
[2025-02-04] MEDS: MORPHINE SULF INJ 10 MG/ML VIAL 2 MG IVP ×4 (05:47→22:41)
[2025-02-04 06:07] LABS: Alanine Aminotransferase 8 U/L (10-49); Albumin, Serum 3.7 gm/dL (3.4-4.8); Albumin/Globulin Ratio 1.4 (1.2-2.2); Alkaline Phosphatase 175 U/L (46-116); Anion Gap 8 (7-16); Aspartate Amino Transferase 24 U/L (0-34); BUN/Creatinine Ratio 20 Ratio (12-20); Bilirubin,Total 0.8 mg/dL (0.3-1.2); Blood Urea Nitrogen 14 mg/dL (9-23); Calcium 9.4 mg/dL (8.3-10.6); Calcium (Corrected) 9.6 mg/dL (8.5-10.1); Carbon Dioxide 29.7 mMol/L (20.0-31.0); Chloride 105 mMol/L (98-107); Creatinine (Component) 0.7 mg/dL (0.6-1.3); Estimated Creatinine Clearance 82.6 mL/min (>60); Globulin 2.7 gm/dL (2.3-3.5); Glucose 146 mg/dL (74-106); Magnesium 1.3 mg/dL (1.6-2.6); Osmolality,Calculated 288 (275-295); Phosphorous 2.3 mg/dL (2.4-5.1); Potassium 4.3 mMol/L (3.4-5.1); Sodium 143 mMol/L (136-145); Total Protein 6.4 gm/dL (5.7-8.2); eGFR > 60 See Note
[2025-02-04] MEDS: ALBUMIN HUMAN 25% IVPB 12.5 GM/50 ML BTL IV (08:32)
[2025-02-04] MEDS: POT PHOS 15 mMol in NS 250 ML 15 MMOL/250 ML BAG 62.5 MMOL IV (08:32)
[2025-02-04] MEDS: Magnesium Sulfate 4 GM Ivpb 4 GM/50 ML BAG IV (08:32)
--- NOTE | 2025-02-04 09:53 | XR_ITS ---
Examination: Abdomen AP single view Technique: AP portable supine abdomen, single view Exam date and time: February 04, 2025 1022 hours INDICATIONS: Abdominal distention today. FINDINGS: Multiple air distended small bowel loops Orogastric tube in satisfactory position. No free air. IMPRESSION: Small bowel obstruction pattern
[2025-02-04 10:58] LABS: LDH (Lactate Dehydrogenase) 206 U/L (120-246)
--- NOTE | 2025-02-04 11:52 | XR_ITS ---
Examination: Small bowel series AP abdomen supine 3 views Date and time: February 04, 2025 1222 hours INDICATIONS: Abdominal pain and distention this week TECHNIQUE AND FINDINGS: Patient received 120 cc Gastrografin through the orogastric tube AP abdomen films immediate, 30 minutes 1 hr obtained Contrast in distended small bowel loops IMPRESSION: Small bowel obstruction pattern Recommend follow-up abdomen films 4:00 PM, 6:00 PM 8:00 PM
--- NOTE | 2025-02-04 11:55 | ESPR_ITS ---
<Statement entered by Keith Daly MD - 02/04/25 14:07> In summary: Admitted for acute decompensated liver cirrhosis with hepatic encephalopathy which has improved since admission. However, still has a problem eliminating stool regularly despite LACTULOSE OH/p.o. and GOLYTELY. We've tried bowel regimen NGT several times without success. Abdomen again is tender on exam today, KUB today showed SBO. NG tube continued. Started small bowel series. I?ve reviewed the note and agree with the resident's assessment and plan, with the exceptions outlined above. I personally went over the labs, imaging, home medications, and prior records, and examined the patient. The case was also reviewed with the attending physician. Please note: this document was transcribed using voice recognition technology; minor inaccuracies may be present. Keith Daly DO PGY II Documentation for date of: 02/04/25 Subjective Subjective Interval history: Patient examined at bedside. No acute overnight events. NG tube with suction still in place and draining well 1.6L past 24hr. Abdominal distention has improved since yesterday, patient having abdominal pain rated 9/10 that resolves temporarily with morphine. Patient had 2 BMs in the past 24 hours, but still is not meeting bowel movement goals per day. Exam Vital Signs Temp Pulse Resp BP Pulse Ox O2 Del Method O2 Flow Rate 97.0 F 90 19 127/63 98 Nasal Cannula 2 02/04/25 08:00 02/04/25 08:00 02/04/25 08:00 02/04/25 08:00 02/04/25 08:00 02/04/25 08:00 02/04/25 08:00 Narrative Exam GENERAL Normal appearing adult female, NAD. HEENT NCAT. GEOVANNI. Oral mucosa is moist. Patent Nares NECK Supple, nontender, no JVD. CHEST RRR, no m/g/r, bilateral inspiratory crackles,no work of breathing, symmetrical expansion. ABDOMEN Soft, distention improving, minimal tenderness throughout. No guarding/rebound tenderness/masses. Bowel sounds presents EXTREMITIES No edema/cyanosis. SKIN Warm and dry, no jaundice/rashes. Slightly pale. NEUROMUSCULAR Asterixis bilaterally of upper extremities. Moves all 4 extremities slowly, with full ROM. No focal neurologic deficits. PSYCHIATRY Normal mood and affect, cooperative, no hallucinations Objective Labs 02/04/25 04:57 02/04/25 04:57 Labs: Laboratory Results - last 24 hr 02/04/25 04:57 WBC 9.5 RBC 3.66 L Hgb 9.2 L Hct 29.8 L MCV 81 MCH 25.1 MCHC 30.9 L RDW Std Deviation 49.0 H Plt Count 244 Neut % (Auto) 72 Lymph % (Auto) 16 [place] % (Auto) 7 Eos % (Auto) 3 Baso % (Auto) 1 Neut # (Auto) 6.8 Lymph # (Auto) 1.5 [place] # (Auto) 0.7 Eos # (Auto) 0.3 Baso # (Auto) 0.1 Immature Gran # (Auto) 0.09 H Absolute Nucleated RBC 0.00 Immature Gran % 1 H Nucleated RBC % 0 Sodium 143 Potassium 4.3 Chloride 105 Carbon Dioxide 29.7 Anion Gap 8 BUN 14 Creatinine 0.7 Estim Creat Clear Calc 82.6 eGFR > 60 BUN/Creatinine Ratio 20 Glucose 146 H Calculated Osmolality 288 Calcium 9.4 Corrected Calcium 9.6 Phosphorus 2.3 L Magnesium 1.3 L Total Bilirubin 0.8 AST 24 ALT 8 L Alkaline Phosphatase 175 H D Lactate Dehydrogenase 206 Total Protein 6.4 Albumin 3.7 Globulin 2.7 Albumin/Globulin Ratio 1.4 ABG Interpretation ABG results: 01/26/25 05:17 VBG pH 7.43 VBG pCO2 37 VBG pO2 59 H VBG Base Excess 0 Quality Measures Quality Measures VTE prophylaxis Advance care planning discussed with:: patient Assessment & Plan Assessment Current Active Medications: Generic Name Dose Route Start Last Admin Trade Name Freq PRN Reason Stop Dose Admin Acetaminophen 650 mg 01/20/25 16:47 02/02/25 05:44 Acetaminophen 325 Mg Tablet PO 02/19/25 16:46 650 mg Q6H PRN Administration PAIN SCALE 1-3 (mild Acetaminophen 650 mg 01/20/25 16:47 01/24/25 19:47 Acetaminophen 325 Mg Tablet PO 02/19/25 16:46 650 mg Q6H PRN Administration Fever >100.4 Albuterol/Ipratropium 3 ml 01/20/25 18:38 01/29/25 21:46 Albuterol/Ipratropium (Duoneb) Rt Lisset 3 Ml Nebu INH 02/19/25 18:37 3 ml Q6HRRT PRN Administration Wheezing Ascorbic Acid 250 mg 01/29/25 09:00 02/04/25 11:40 Ascorbic Acid 250 Mg Tablet PO 02/28/25 08:59 Not Given BID REYNA Carvedilol 3.125 mg 01/29/25 17:30 02/01/25 08:08 Carvedilol 3.125 Mg Tablet PO 02/28/25 17:29 3.125 mg BIDWM REYNA Administration Dextrose 25 ml 01/20/25 18:39 Dextrose 50%-Water Inj 50 Ml Syringe IV 02/19/25 18:38 Q15MIN PRN BG 50-70 responsive npo pt Dextrose 50 ml 01/20/25 18:39 Dextrose 50%-Water Inj 50 Ml Syringe IV 02/19/25 18:38 Q15MIN PRN BG <50 OR BG <70 & pt unresponsive Docusate Sodium 200 mg 01/24/25 21:00 02/04/25 11:40 Docusate Sod 100 Mg Capsule PO 02/23/25 20:59 Not Given QDAY [facility] Protocol Escitalopram Oxalate 20 mg 01/24/25 16:30 02/04/25 11:40 Escitalopram Oxalate 10 Mg Tablet PO 02/23/25 16:29 Not Given QDAY REYNA Folic Acid 1 mg 01/29/25 09:00 02/04/25 11:40 Folic Acid 1 Mg Tablet PO 02/28/25 08:59 Not Given QDAY REYNA Furosemide 40 mg 01/30/25 09:30 01/30/25 10:01 Furosemide 40 Mg Tablet PO 03/01/25 09:29 40 mg QDAY REYNA Administration Glucagon 1 mg 01/20/25 18:39 Glucagon Inj 1 Mg Vial IM Q15MIN PRN BG <70, and no IV access Albumin Human 12.5 gm in 50 mls @ 100 mls/hr 02/01/25 07:53 02/04/25 08:32 Albuminar-25 Ivpb IV 03/03/25 07:52 100 mls/hr QDAY REYNA Administration Potassium Phosphate 15 mmol in 250 mls @ 62.5 mls/hr 02/04/25 08:30 02/04/25 08:32 Pot Phos 15 Mmol In Ns 250 Ml IV 02/04/25 12:29 62.5 mls/hr X1 ONE Administration Insulin Human Lispro 0 unit 02/03/25 18:00 02/04/25 11:38 Insulin Lispro (Admelog) 1 Unit/0.01 Ml Unit SC 02/19/25 20:59 Not Given Q6HR REYNA Protocol Lactulose 200 gm 02/02/25 15:30 02/03/25 09:47 Lactulose Syrup 20 Gm/30 Ml Udc OH 03/04/25 15:29 200 gm QDAY REYNA Administration Protocol Levothyroxine Sodium 112 mcg 01/21/25 06:00 02/03/25 05:31 Levothyroxine Sodium 112 Mcg Tablet PO 02/20/25 05:59 112 mcg ACBR REYNA Administration Lidocaine 1 patch 01/21/25 10:22 Lidocaine 5% 1 Patch TOP 02/20/25 10:21 UD PRN Back pain Protocol Liothyronine Sodium 10 mcg 01/25/25 14:15 02/04/25 11:40 Liothyronine Sod 5 Mcg Tablet PO 02/24/25 14:14 Not Given QDAY REYNA Loratadine 10 mg 01/21/25 09:00 02/04/25 11:39 Loratadine 10 Mg Tablet PO 02/20/25 08:59 Not Given QDAY REYNA Melatonin 3 mg 02/02/25 21:00 02/02/25 20:40 Melatonin 3 Mg Tablet PO 03/04/25 20:59 3 mg HS REYNA Administration Midodrine 5 mg 01/31/25 11:45 02/04/25 04:57 Midodrine 5 Mg Tablet PO 03/02/25 11:44 Not Given TID REYNA Morphine Sulfate 2 mg 02/04/25 10:10 02/04/25 10:11 Morphine Sulf Inj 10 Mg/Ml Vial IVP 02/09/25 10:09 2 mg Q6HR PRN Administration Pain 6-10 Multivitamins 1 tab 01/29/25 09:00 02/04/25 11:40 Multivitamins Tablet PO 02/28/25 08:59 Not Given QDAY REYNA Ondansetron HCl 4 mg 01/20/25 16:47 01/31/25 21:20 Ondansetron Inj 2 Mg/Ml Inj 2 Ml IVP 02/19/25 16:46 4 mg Q6H PRN Administration NAUSEA OR VOMITING Protocol Pantoprazole Sodium 40 mg 02/03/25 09:30 02/04/25 08:33 Pantoprazole Inj 40 Mg Vial IVP 03/05/25 09:29 40 mg BID REYNA Administration Pregabalin 100 mg 02/01/25 21:00 02/04/25 11:41 Pregabalin 50 Mg Capsule PO 03/03/25 20:59 Not Given BID REYNA Simethicone 80 mg 01/26/25 08:38 01/30/25 20:42 Simethicone 80 Mg Chew PO 02/25/25 08:37 80 mg QID PRN Administration GAS Spironolactone 25 mg 01/29/25 10:15 01/31/25 09:11 Spironolactone 25 Mg Tablet PO 02/28/25 10:14 25 mg QDAY REYNA Administration Thiamine HCl 100 mg 01/29/25 09:00 02/04/25 11:40 Thiamine 100 Mg Tablet PO 02/28/25 08:59 Not Given QDAY REYNA Plan Assessment: 64 year-old female with PMHx of alcoholic liver cirrhosis, COPD on home O2, hypothyroidism, asthma, HTN, T2DM and anxiety who presented to the ED with worsening ascites and abdominal discomfort. Admitted under observation for therapeutic/diagnostic paracentesis. #Small Bowel Ileus - severe #Constipation?slowly improving #Abdominal distention?slowly improving AXR 02/02/25: Severe small bowel ileus versus early obstruction KUB 02/04/25: Showing small bowel obstruction Plan - NPO - GI series ordered, follow results ? NGT placed with suction until obstruction resolves, Dr. Nagy's recommendations ? Lactulose OH on HOLD for GI series ? GoLytely on HOLD due to severe small bowel ileus versus early obstruction #Acute hepatic encephalopathy (improving) #Acute decompensated alcoholic liver cirrhosis #Intractable ascites (improving) #Advanced portal hypertension (stable) #Esophageal varices (stable) #Subacute bacterial peritonitis (resolved) Significant alcohol use history, cirrhosis diagnosed in 08/2023. Has been on SPIRONOLACTONE, presenting with 1 month of worsening abdominal ascites. Abdominal CT showed cirrhosis, significant ascites, prominent splenomegaly, anasarca, esophageal and perigastric varices, no bowel obstruction. MELD score 9 equates to 6% mortality in 3 months. Child-Wilhelm score 7, Class B, indication for transplant evaluation. SAAG < 1.1 g/dL Portal hypertension is not necessarily the cause of ascites MELD-Na Score (01/28/2025) 12 points, <2% mortality estimated 90 day mortality Completed 10 days of CEFTRIAXONE for SBP prophylaxis with the addition of few days of FLUCONAZOLE. Afebrile, no leukocytosis Plan: ? Holding diuresis for now given slightly worsening kidney function. ? Continue MIDODRINE 5 mg TID ? Continue rifaximin BID ? LACTULOSE OH on HOLD, goal 3?5 BMs daily ? Continue SPIRONOLACTONE 25 mg daily ? Continue albumin infusions 12.5 g IV daily ? Consider resuming LASIX when able ? Encourage oral intake ? Fluid restriction ? Sodium restriction of 2 g/day Possible polypharmacy Hx anxiety She is on multiple anxiolytics. Neurology is following, URSULA showed diffuse slowing c/w hepatic encephalopathy ? Holding home PRIMIDONE, ZOLPIDEM in settings of acute encephalopathy. ? Holding home LEXAPRO daily given acute encepahlopathy ? Continuing Home LYRICA BID Hypothyroidism TSH 2.33 Free T4 1.15 Thyroxine T3 48.2 Free T3 0.8 Patient was taking liothyronine 20 mcg daily but was not started in hospital - Liothyronine 10 mcg daily started today, half of patient's home dose ? Levothyroxine 112 mcg daily #Microcytic anemia (stable) #Grade 1 esophageal varices #Mild thrombocytopenia (resolved) Hgb baseline 11.4. Likely iron deficiency versus cirrhosis. CT showed esophageal and perigastric varices. Reports chronic, recurrent hemorrhoidal bleed, but denies dark stool or upper GI bleed. Had an EGD last year and was abnormal. She is on a 5-year colonoscopy scheduled for colonic polyps, last colonoscopy 5 years ago. B12 and folate WNL. Iron stores are low. EGD showed grade 1 lower third esophageal varices, moderate patchy hemorrhagic characteristic of the gastric antrum. GI recommended outpatient colonoscopy. Hemoglobin stable. ? Transfuse if Hgb less than 8 ? Will need PROPRANOLOL for variceal prophylaxis, if BP can tolerate ? Continue daily oral iron supplements #HTN #Asymptomatic sinus bradycardia Currently BP soft, normocardic. EKG shows sinus bradycardia, likely cirrhosis related on oral dysfunction versus BETA-BLOCKERS. ? Continue home LEVOTHYROXINE 112 mcg AC BR ? Consider resume home METOPROLOL when able #COPD, asthma #Chronic respiratory failure, on home 2 L O2 No signs of asthma or COPD exacerbation ? DuoNebs q.6h. PRN ? Will discharge on TRELEGY #T2DM A1c 7.7 from 08/2024. ? INSULIN sliding scale ? Accu-Cheks #Acute kidney injury -resolved #Prerenal 2/2 to hypotention Cr 0.9 Baseline Cr 0.9 ? Holding diuresis for now ? Monitor renal panel ? Renally dose meds, avoid overdiuresis and NEPHROTOXINS #Electrolyte abnormalities ? Daily labs, replete as needed Health maintenance Diet: NPO in prep for GI series GI prophylaxis: PROTONIX DVT prophylaxis: HEPARIN subcu Antibiotics: No addition CODE STATUS: Full code Case discussed with my attending Dr. Samuel, and senior resident, Dr. Malika Kidd MD PGY-1 Attending Provider Attestation/Addendum I have discussed and was present for the essential components of the history, physical examination, diagnosis, and treatment plan with the resident. I agree with the patient's care as documented by the resident and amended herein by me. Didier Samuel DO. Although this document has been carefully reviewed, there may still be some phonetic and other typographical errors. These errors are purely grammatical due to imperfections in the software program and should not be construed in any way to compromise the substance of the patient's medical care during this visit. Patient seen and evaluated this AM. No acute events overnight, vital signs stable, patient afebrile, reported to be passing flatus, I's and O's 120/1650, 4 bowel movements reported since last night. Labs largely unremarkable. Fortunately we did obtain a KUB this morning which demonstrated small bowel obstruction however has improved with a small bowel series throughout the day now showing an incomplete obstruction. Will see with the final x-ray shows at approximately 2000 hrs. Will continue NGT at this time on intermittent suction, appreciate specialist recommendations.
--- NOTE | 2025-02-04 15:18 | PC.DIETICIAN ---
Nutrition prescription If oral intake is feasible, consider: Dys Mech Altered. Ensure Plus 4oz TID with meals. Two snacks between meals (AM: jello + 4oz Ensure Plus, PM: fruit + 4oz Ensure Plus)
--- NOTE | 2025-02-04 16:30 | XR_ITS ---
Examination: Abdomen AP single view Technique: AP portable supine abdomen, single view Exam date and time: February 04, 2025 1550 hours INDICATIONS: Abdominal pain and distention this week, forearm delayed film post small bowel series today. FINDINGS: Contrast in distended small bowel loops IMPRESSION: Small bowel obstruction pattern, multiple additional delayed films will be obtained
--- NOTE | 2025-02-04 18:30 | XR_ITS ---
Examination: Abdomen AP single view Technique: AP portable supine abdomen, single view Exam date and time: February 04, 2025 1828 hours INDICATIONS: Abdominal distention today, six-hour delayed temporal small bowel series. FINDINGS: Contrast in distended small bowel loops, however contrast now present in the right colon IMPRESSION: Incomplete small bowel obstruction, recommend one additional film at 8:00 PM
--- NOTE | 2025-02-04 20:30 | XR_ITS ---
Examination: Abdomen AP single view Technique: AP portable supine abdomen, single view Exam date and time: February 04, 2025 2016 hours INDICATIONS: Abdominal pain and distention this week, 8 hour delayed film for small bowel series. FINDINGS: Most of the contrast is in the colon IMPRESSION: Negative for small bowel obstruction, no further films are needed
--- NOTE | 2025-02-04 22:57 | ESPR_ITS ---
Documentation for date of: 02/04/25 Subjective Subjective Interval history: NGT to intermittent suction small bowel follow-through Gastrografin in progress Exam Vital Signs Temp Pulse Resp BP Pulse Ox O2 Del Method O2 Flow Rate 97.6 F 91 18 127/67 93 L Nasal Cannula 1 02/04/25 20:00 02/04/25 20:00 02/04/25 20:00 02/04/25 20:00 02/04/25 20:00 02/04/25 20:00 02/04/25 20:00 Objective Labs 02/04/25 04:57 02/04/25 04:57 Labs: Laboratory Results - last 24 hr 02/04/25 04:57 WBC 9.5 RBC 3.66 L Hgb 9.2 L Hct 29.8 L MCV 81 MCH 25.1 MCHC 30.9 L RDW Std Deviation 49.0 H Plt Count 244 Neut % (Auto) 72 Lymph % (Auto) 16 [place] % (Auto) 7 Eos % (Auto) 3 Baso % (Auto) 1 Neut # (Auto) 6.8 Lymph # (Auto) 1.5 [place] # (Auto) 0.7 Eos # (Auto) 0.3 Baso # (Auto) 0.1 Immature Gran # (Auto) 0.09 H Absolute Nucleated RBC 0.00 Immature Gran % 1 H Nucleated RBC % 0 Sodium 143 Potassium 4.3 Chloride 105 Carbon Dioxide 29.7 Anion Gap 8 BUN 14 Creatinine 0.7 Estim Creat Clear Calc 82.6 eGFR > 60 BUN/Creatinine Ratio 20 Glucose 146 H Calculated Osmolality 288 Calcium 9.4 Corrected Calcium 9.6 Phosphorus 2.3 L Magnesium 1.3 L Total Bilirubin 0.8 AST 24 ALT 8 L Alkaline Phosphatase 175 H D Lactate Dehydrogenase 206 Total Protein 6.4 Albumin 3.7 Globulin 2.7 Albumin/Globulin Ratio 1.4 Impressions Impression: Abdominal distention due to small bowel ileus/obstruction Stool impaction left colon NGT to intermittent suction Gastrografin small bowel follow-through ABG Interpretation ABG results: 01/26/25 05:17 VBG pH 7.43 VBG pCO2 37 VBG pO2 59 H VBG Base Excess 0 Assessment & Plan A&P Narrative # Decompensated alcoholic liver disease with advanced portal hypertension esophageal varices and intractable ascites Plan Agree with the IV Lasix Agree with IV albumin Add spironolactone 25 mg p.o. twice daily Scheduled for therapeutic paracentesis Monitor renal function closely Consent obtained for fiberoptic esophagogastroduodenoscopy with possible biopsy possible therapeutic intervention for prophylactic band ligation of the esophageal varices Agree with IV ceftriaxone for the possibility of subacute bacterial peritonitis Will follow the patient Other medical problems include COPD on home oxygen 2 L nasal cannula Essential hypertension Hypothyroidism Hyperlipidemia Thank you very much for the opportunity to participate in care of this patient Time Spent With Patient Time: Total time spent is greater than 50% in coordination of care (as documented) at patient's floor/unit and/or counseling patient:
--- NOTE | 2025-02-04 23:55 | ESPR_ITS ---
Documentation for date of: 02/04/25 Subjective Subjective Interval history: Patient was seen in telemetry today. She is getting NGT aspiration and is doing better overall. Got bowel series imaging. Exam - Neurology Vital Signs Temp Pulse Resp BP Pulse Ox O2 Del Method O2 Flow Rate 97.6 F 91 16 127/67 96 Nasal Cannula 2 02/04/25 20:00 02/04/25 23:23 02/04/25 23:23 02/04/25 20:00 02/04/25 23:23 02/04/25 20:00 02/04/25 23:23 Narrative Exam GENERAL APPEARANCE: Well hydrated, well-nourished in no acute distress. HEENT: Normocephalic, atraumatic, extraocular movements intact. Pupils: Equal reacting to light and accommodation NECK: Supple, no JVD or bruits. CARDIOVASULAR: Heart: S1, S2 heard, regular without S3-S4 or murmur no rubs or gallops. LUNGS/CHEST: Clear to auscultation bilaterally. No rails, rhonchi, or wheezing. Normal inspection. ABDOMEN: Distended with ascites EXTREMITIES: Normal inspection and palpation. No edema, clubbing or cyanosis. SKIN: Warm and dry without rashes. Normal inspection. MUSCULOSKELETAL: No cervical, thoracic, lumbar or midline bony tenderness. Normal inspection. NEURO: Alert, awake and oriented x3. Cranial nerves: II through XII grossly intact. Speech and language: Normal with no dysarthria or dysphasia. Motor system: Tone and bulk: Normal: Strength: 5 out of 5 in all 4 extremities; No pronator drift noted. Deep tendon reflexes: 2+ bilaterally symmetrical. Plantar reflex: Downgoing bilaterally. Sensory system: Intact to all modalities of sensation bilaterally. Coordination: Intact to [id number] and [id number] test bilaterally. No ataxia, no dysmetria, or dysdiadochokinesia noted. No intention tremors noted. Gait: walks in the room with a walker. No signs of meningeal irritation noted. PSYCHIATRIC: Normal mood and affect. Objective Labs 02/04/25 04:57 02/04/25 04:57 Labs: Laboratory Results - last 24 hr 02/04/25 04:57 WBC 9.5 RBC 3.66 L Hgb 9.2 L Hct 29.8 L MCV 81 MCH 25.1 MCHC 30.9 L RDW Std Deviation 49.0 H Plt Count 244 Neut % (Auto) 72 Lymph % (Auto) 16 [place] % (Auto) 7 Eos % (Auto) 3 Baso % (Auto) 1 Neut # (Auto) 6.8 Lymph # (Auto) 1.5 [place] # (Auto) 0.7 Eos # (Auto) 0.3 Baso # (Auto) 0.1 Immature Gran # (Auto) 0.09 H Absolute Nucleated RBC 0.00 Immature Gran % 1 H Nucleated RBC % 0 Sodium 143 Potassium 4.3 Chloride 105 Carbon Dioxide 29.7 Anion Gap 8 BUN 14 Creatinine 0.7 Estim Creat Clear Calc 82.6 eGFR > 60 BUN/Creatinine Ratio 20 Glucose 146 H Calculated Osmolality 288 Calcium 9.4 Corrected Calcium 9.6 Phosphorus 2.3 L Magnesium 1.3 L Total Bilirubin 0.8 AST 24 ALT 8 L Alkaline Phosphatase 175 H D Lactate Dehydrogenase 206 Total Protein 6.4 Albumin 3.7 Globulin 2.7 Albumin/Globulin Ratio 1.4 ABG Interpretation ABG results: 01/26/25 05:17 VBG pH 7.43 VBG pCO2 37 VBG pO2 59 H VBG Base Excess 0 Assessment & Plan Assessment and plan (1) Hepatic encephalopathy: Status: Acute Assessment and plan: Resolving Continue to monitor her closely and restrict the use of opiates Patient might need paracentesis as the abdominal distention gets worse. As the imaging revealed ileus, she is on NGT aspiration and made NPO.
[2025-02-05] VITALS (11 sets, daily range): BP systolic 123–148; BP diastolic 66–83; PULSE 83–99; RESP 14–20; TEMP 36.2–36.8; O2SAT 94–98
[2025-02-05] MEDS: MORPHINE SULF INJ 10 MG/ML VIAL 2 MG IVP (05:05)
[2025-02-05 06:36] LABS: Basophils # (Auto) 0.1 Thou/mm3 (0.0-0.2); Basophils % (Auto) 1 % (0-2.5); Eosinophils # (Auto) 0.3 Thou/mm3 (0.0-0.5); Eosinophils % (Auto) 3 % (0-10); Hematocrit 28.9 % (36.0-46.0); Hemoglobin 9.0 g/dL (12.0-16.0); Immature Granulocytes Auto 0.05 Thou/mm3 (0.00-0.00); Lymphocytes # (Auto) 1.3 Thou/mm3 (1.0-4.8); Lymphocytes % (Auto) 15 % (10-50); Mean Corpuscular HGB Conc 31.1 g/dl (31.0-37.0); Mean Corpuscular Hemoglobin 25.1 pg (25.0-35.0); Mean Corpuscular Volume 81 fL (80-100); Monocytes # (Auto) 0.6 Thou/mm3 (0.0-0.8); Monocytes % (Auto) 7 % (0-12); Neutrophils # (Auto) 6.2 Thou/mm3 (1.8-7.7); Neutrophils % (Auto) 73 % (37-80); Nucleated Red Blood Cell # 0.00 Thou/mm3 (0.00-0.00); Nucleated Red Blood Cell % 0 /100 WBC (0); Platelet Count 290 Thou/mm3 (140-440); RDW Standard Deviation 49.6 fL (36.4-46.3); Red Blood Count 3.58 Miln/mm3 (4.00-5.20); White Blood Count 8.5 Thou/mm3 (3.6-11.0)
[2025-02-05 07:36] LABS: Alanine Aminotransferase 10 U/L (10-49); Albumin, Serum 3.6 gm/dL (3.4-4.8); Albumin/Globulin Ratio 1.3 (1.2-2.2); Alkaline Phosphatase 215 U/L (46-116); Anion Gap 10 (7-16); Aspartate Amino Transferase 28 U/L (0-34); BUN/Creatinine Ratio 19 Ratio (12-20); Bilirubin,Total 0.7 mg/dL (0.3-1.2); Blood Urea Nitrogen 13 mg/dL (9-23); Calcium 9.2 mg/dL (8.3-10.6); Calcium (Corrected) 9.5 mg/dL (8.5-10.1); Carbon Dioxide 29.6 mMol/L (20.0-31.0); Chloride 107 mMol/L (98-107); Creatinine (Component) 0.7 mg/dL (0.6-1.3); Estimated Creatinine Clearance 82.6 mL/min (>60); Globulin 2.8 gm/dL (2.3-3.5); Glucose 120 mg/dL (74-106); Magnesium 1.4 mg/dL (1.6-2.6); Osmolality,Calculated 293 (275-295); Phosphorous 3.0 mg/dL (2.4-5.1); Potassium 4.3 mMol/L (3.4-5.1); Sodium 147 mMol/L (136-145); Total Protein 6.4 gm/dL (5.7-8.2); eGFR > 60 See Note
--- NOTE | 2025-02-05 08:00 | XR_ITS ---
Examination: Ultrasound-guided paracentesis Abdominal sonogram limited Date and time of exam: February 05, 2025 1003 hours INDICATIONS: Increasing abdominal distention this week Informed consent provided. A timeout was completed verifying correct patient, procedure, site, positioning, and special adequate movement if applicable. Technique: Multiple sonographic images of the abdomen have been obtained. Appropriate area for paracentesis was marked. Local anesthesia is obtained with 1% lidocaine. Yueh catheter is successfully introduced. Findings: Abdominal sonographic images demonstrate sufficient ascitic fluid for paracentesis. After placing the Yueh catheter, 6500 cc of fluid were successfully removed. During and after completion of the procedure the patient appear in satisfactory and stable condition with no complications observed. Estimated blood loss 0 cc Impression: Abdominal ascites Successful ultrasound-guided paracentesis as described above
[2025-02-05] MEDS: ALBUMIN HUMAN 25% IVPB 12.5 GM/50 ML BTL IV (09:25)
[2025-02-05] MEDS: Magnesium Sulfate 4 GM Ivpb 4 GM/50 ML BAG IV (09:26)
[2025-02-05] MEDS: POLYETHYLENE GLYCOL 17 GM PACKET PO (11:29)
[2025-02-05 12:30] LABS: Peritoneal Fluid WBC 1304 /cmm
[2025-02-05 12:32] LABS: Peritoneal Fluid Appearance Hazy; Peritoneal Fluid Color Yellow; Peritoneal Fluid Mononuclear 62 %; Peritoneal Fluid Polynuclear 38 %; RBC,Peritoneal Fluid 2000 /cmm
[2025-02-05 13:01] LABS: Albumin, Peritoneal Fluid 2.2 gm/dL; Amylase,Peritoneal Fluid < 20 IU/L; Glucose,Peritoneal Fluid 119 mg/dL; LDH,Peritoneal Fluid 220 IU/L; Protein Total,Peritoneal Fluid 4 g/dL
[2025-02-05] MEDS: SIMETHICONE 80 MG CHEW PO ×3 (13:30→20:13)
[2025-02-05] MEDS: cefTRIAXone 2 GM in SODIUM CHLORIDE 0.9% (Popper) 50 ML IV (16:55)
--- NOTE | 2025-02-05 18:02 | ESPR_ITS ---
Documentation for date of: 02/05/25 Subjective Subjective Interval history: No acute overnight events. Continued n.p.o. with NGT, intermittent suctioning in addition to small bowel series which shows resolution. Reports 4-5 large bowel movements yesterday, and 2 this morning. Physical therapy today, encouraged ambulation in the room and bed to chair currently. Pain improving, will switch from MORPHINE to TRAMADOL. Denies fever, chills, headaches, chest pain, sob, cough, other GI or urinary symptoms. Melendez was discontinued, initiated voiding trial and bladder training. Exam Vital Signs Temp Pulse Resp BP Pulse Ox O2 Del Method O2 Flow Rate 98.0 F 99 17 123/67 94 L Nasal Cannula 2 02/05/25 16:00 02/05/25 16:00 02/05/25 16:00 02/05/25 16:00 02/05/25 16:00 02/05/25 16:00 02/05/25 16:00 Narrative Exam GENERAL Normal appearing adult female, NAD. HEENT NCAT. GEOVANNI. Oral mucosa is moist. Patent Nares NECK Supple, nontender, no JVD. CHEST RRR, no m/g/r, bilateral inspiratory crackles,no work of breathing, symmetrical expansion. ABDOMEN Soft, distention improving, minimal tenderness throughout. No guarding/rebound tenderness/masses. Bowel sounds presents EXTREMITIES No edema/cyanosis. SKIN Warm and dry, no jaundice/rashes. Slightly pale. NEUROMUSCULAR Asterixis bilaterally of upper extremities. Moves all 4 extremities slowly, with full ROM. No focal neurologic deficits. PSYCHIATRY Normal mood and affect, cooperative, no hallucinations Objective Labs 02/06/25 05:14 02/06/25 05:14 Labs: Laboratory Results - last 24 hr 02/04/25 02/05/25 09:57 04:58 WBC 8.5 RBC 3.58 L Hgb 9.0 L Hct 28.9 L MCV 81 MCH 25.1 MCHC 31.1 RDW Std Deviation 49.6 H Plt Count 290 D Neut % (Auto) 73 Lymph % (Auto) 15 [place] % (Auto) 7 Eos % (Auto) 3 Baso % (Auto) 1 Neut # (Auto) 6.2 Lymph # (Auto) 1.3 [place] # (Auto) 0.6 Eos # (Auto) 0.3 Baso # (Auto) 0.1 Immature Gran # (Auto) 0.05 H Absolute Nucleated RBC 0.00 Immature Gran % 1 H Nucleated RBC % 0 Sodium 147 H Potassium 4.3 Chloride 107 Carbon Dioxide 29.6 Anion Gap 10 BUN 13 Creatinine 0.7 Estim Creat Clear Calc 82.6 eGFR > 60 BUN/Creatinine Ratio 19 Glucose 120 H Calculated Osmolality 293 Calcium 9.2 Corrected Calcium 9.5 Phosphorus 3.0 Magnesium 1.4 L Total Bilirubin 0.7 AST 28 ALT 10 Alkaline Phosphatase 215 H D Total Protein 6.4 Albumin 3.6 Globulin 2.8 Albumin/Globulin Ratio 1.3 Peritoneal Color Yellow Peritoneal Appearance Hazy Peritoneal WBC 1304 Peritoneal RBC 2000 Periton Polynucl WBCs 38 Periton Mononucl WBCs 62 Peritoneal Tot Protein 4 Peritoneal Albumin 2.2 Peritoneal LDH 220 Peritoneal Glucose 119 Peritoneal Amylase < 20 ABG Interpretation ABG results: 01/26/25 05:17 VBG pH 7.43 VBG pCO2 37 VBG pO2 59 H VBG Base Excess 0 Quality Measures Quality Measures VTE prophylaxis Advance care planning discussed with:: patient Assessment & Plan Assessment Current Active Medications: Generic Name Dose Route Start Last Admin Trade Name Freq PRN Reason Stop Dose Admin Acetaminophen 650 mg 01/20/25 16:47 02/02/25 05:44 Acetaminophen 325 Mg Tablet PO 02/19/25 16:46 650 mg Q6H PRN Administration PAIN SCALE 1-3 (mild Acetaminophen 650 mg 01/20/25 16:47 01/24/25 19:47 Acetaminophen 325 Mg Tablet PO 02/19/25 16:46 650 mg Q6H PRN Administration Fever >100.4 Albuterol/Ipratropium 3 ml 01/20/25 18:38 01/29/25 21:46 Albuterol/Ipratropium (Duoneb) Rt Lisset 3 Ml Nebu INH 02/19/25 18:37 3 ml Q6HRRT PRN Administration Wheezing Ascorbic Acid 250 mg 01/29/25 09:00 02/05/25 10:00 Ascorbic Acid 250 Mg Tablet PO 02/28/25 08:59 Not Given BID REYNA Carvedilol 3.125 mg 01/29/25 17:30 02/01/25 08:08 Carvedilol 3.125 Mg Tablet PO 02/28/25 17:29 3.125 mg BIDWM REYNA Administration Dextrose 25 ml 01/20/25 18:39 Dextrose 50%-Water Inj 50 Ml Syringe IV 02/19/25 18:38 Q15MIN PRN BG 50-70 responsive npo pt Dextrose 50 ml 01/20/25 18:39 Dextrose 50%-Water Inj 50 Ml Syringe IV 02/19/25 18:38 Q15MIN PRN BG <50 OR BG <70 & pt unresponsive Docusate Sodium 200 mg 01/24/25 21:00 02/05/25 10:00 Docusate Sod 100 Mg Capsule PO 02/23/25 20:59 Not Given QDAY [facility] Protocol Escitalopram Oxalate 20 mg 01/24/25 16:30 02/05/25 10:00 Escitalopram Oxalate 10 Mg Tablet PO 02/23/25 16:29 Not Given QDAY REYNA Folic Acid 1 mg 01/29/25 09:00 02/05/25 10:01 Folic Acid 1 Mg Tablet PO 02/28/25 08:59 Not Given QDAY REYNA Furosemide 40 mg 01/30/25 09:30 01/30/25 10:01 Furosemide 40 Mg Tablet PO 03/01/25 09:29 40 mg QDAY REYNA Administration Glucagon 1 mg 01/20/25 18:39 Glucagon Inj 1 Mg Vial IM Q15MIN PRN BG <70, and no IV access Albumin Human 12.5 gm in 50 mls @ 100 mls/hr 02/01/25 07:53 02/05/25 09:25 Albuminar-25 Ivpb IV 03/03/25 07:52 100 mls/hr QDAY REYNA Administration Ceftriaxone Sodium/Dextrose 2 gm in 50 mls @ 100 mls/hr 02/06/25 09:00 Rocephin/D5w 2gm IV 02/12/25 15:56 QDAY REYNA Insulin Human Lispro 0 unit 02/05/25 17:00 02/05/25 17:15 Insulin Lispro (Admelog) 1 Unit/0.01 Ml Unit SC 02/19/25 20:59 Not Given ACHS [facility] Protocol Lactulose 200 gm 02/02/25 15:30 02/04/25 19:27 Lactulose Syrup 20 Gm/30 Ml Udc MN 03/04/25 15:29 Not Given QDAY [facility] Protocol Levothyroxine Sodium 112 mcg 01/21/25 06:00 02/05/25 05:09 Levothyroxine Sodium 112 Mcg Tablet PO 02/20/25 05:59 Not Given ACBR REYNA Lidocaine 1 patch 01/21/25 10:22 Lidocaine 5% 1 Patch TOP 02/20/25 10:21 UD PRN Back pain Protocol Liothyronine Sodium 10 mcg 01/25/25 14:15 02/05/25 10:01 Liothyronine Sod 5 Mcg Tablet PO 02/24/25 14:14 Not Given QDAY REYNA Loratadine 10 mg 01/21/25 09:00 02/05/25 10:01 Loratadine 10 Mg Tablet PO 02/20/25 08:59 Not Given QDAY REYNA Melatonin 3 mg 02/02/25 21:00 02/04/25 20:06 Melatonin 3 Mg Tablet PO 03/04/25 20:59 Not Given HS REYNA Midodrine 5 mg 02/05/25 14:00 02/05/25 14:49 Midodrine 5 Mg Tablet PO 03/02/25 13:59 Not Given TID REYNA Multivitamins 1 tab 01/29/25 09:00 02/05/25 10:01 Multivitamins Tablet PO 02/28/25 08:59 Not Given QDAY REYNA Ondansetron HCl 4 mg 01/20/25 16:47 01/31/25 21:20 Ondansetron Inj 2 Mg/Ml Inj 2 Ml IVP 02/19/25 16:46 4 mg Q6H PRN Administration NAUSEA OR VOMITING Protocol Pantoprazole Sodium 40 mg 02/03/25 09:30 02/05/25 09:26 Pantoprazole Inj 40 Mg Vial IVP 03/05/25 09:29 40 mg BID REYNA Administration Polyethylene Glycol 17 gm 02/05/25 10:15 02/05/25 11:29 Polyethylene Glycol 17 Gm Packet PO 03/07/25 10:14 17 gm QDAY REYNA Administration Pregabalin 100 mg 02/01/25 21:00 02/05/25 10:01 Pregabalin 50 Mg Capsule PO 03/03/25 20:59 Not Given BID REYNA Simethicone 80 mg 02/05/25 12:00 02/05/25 16:46 Simethicone 80 Mg Chew PO 03/07/25 11:59 80 mg QID REYNA Administration Spironolactone 25 mg 01/29/25 10:15 01/31/25 09:11 Spironolactone 25 Mg Tablet PO 02/28/25 10:14 25 mg QDAY REYNA Administration Thiamine HCl 100 mg 01/29/25 09:00 02/05/25 10:01 Thiamine 100 Mg Tablet PO 02/28/25 08:59 Not Given QDAY REYNA Tramadol HCl 50 mg 02/05/25 10:14 02/05/25 11:28 Tramadol Hcl 50 Mg Tablet PO 02/10/25 10:13 50 mg Q6HR PRN Administration Pain 6-10 Plan Assessment: 64 year-old female with PMHx of alcoholic liver cirrhosis, COPD on home O2, hypothyroidism, asthma, HTN, T2DM and anxiety who presented to the ED with worsening ascites and abdominal discomfort. Admitted under observation for therapeutic/diagnostic paracentesis. # SBO (resolved) #Constipation?slowly improving #Abdominal distention?slowly improving AXR 02/02/25: Severe small bowel ileus versus early obstruction 01/31/2025 KUB showed SBO, which resolved with bowel series. At this point, there is evidence of poor tolerance to LACTULOSE with increased renal distention and recurrent ileus, and overall slowed gut motility. As result, we elected to proceed with MIRALAX to prevent further complications LACTULOSE, including risk for bowel ischemia given aggressive amount of LACTULOSE required to achieve results. Plan ? Discontinued NGT ? Encourage oral intake ? Continue MIRALAX daily ? Will consider resuming LACTULOSE after bowel rest #Acute hepatic encephalopathy (resolved) #Acute decompensated alcoholic liver cirrhosis #Intractable ascites (improving) #Advanced portal hypertension (stable) #Esophageal varices (stable) #Subacute bacterial peritonitis (resolved) Significant alcohol use history, cirrhosis diagnosed in 08/2023. Has been on SPIRONOLACTONE, presenting with 1 month of worsening abdominal ascites. Abdominal CT showed cirrhosis, significant ascites, prominent splenomegaly, anasarca, esophageal and perigastric varices, no bowel obstruction. MELD score 9 equates to 6% mortality in 3 months. Child-Wilhelm score 7, Class B, indication for transplant evaluation. SAAG < 1.1 g/dL Portal hypertension is not necessarily the cause of ascites MELD-Na Score (01/28/2025) 12 points, <2% mortality estimated 90 day mortality Completed 10 days of CEFTRIAXONE for SBP prophylaxis with the addition of few days of FLUCONAZOLE. Afebrile, no leukocytosis She had paracentesis with about 6.5 L removed today. There are signs of lower extremity edema on exam although minimal. Continued on daily ALBUMIN infusion. Will resume diuresis and BB tomorrow if she tolerates paracentesis and if BP allows. Additionally, we ordered fluid analysis and will follow-up. Plan: ? Holding diuresis for now given slightly worsening kidney function. ? Continue MIDODRINE 5 mg TID PRN ? Continue rifaximin BID ? LACTULOSE MN on HOLD, goal 3?5 BMs daily ? Continue SPIRONOLACTONE 25 mg daily ? Continue albumin infusions 12.5 g IV daily ? Consider resuming LASIX when able ? Encourage oral intake ? Fluid restriction ? Sodium restriction of 2 g/day Possible polypharmacy Hx anxiety She is on multiple anxiolytics. Neurology is following, URSULA showed diffuse slowing c/w hepatic encephalopathy ? Holding home PRIMIDONE, ZOLPIDEM in settings of acute encephalopathy. ? Holding home LEXAPRO daily given acute encepahlopathy ? Continuing Home LYRICA BID Hypothyroidism TSH 2.33 Free T4 1.15 Thyroxine T3 48.2 Free T3 0.8 Patient was taking liothyronine 20 mcg daily but was not started in hospital - Liothyronine 10 mcg daily started today, half of patient's home dose ? Levothyroxine 112 mcg daily #Microcytic anemia (stable) #Grade 1 esophageal varices #Mild thrombocytopenia (resolved) Hgb baseline 11.4. Likely iron deficiency versus cirrhosis. CT showed esophageal and perigastric varices. Reports chronic, recurrent hemorrhoidal bleed, but denies dark stool or upper GI bleed. Had an EGD last year and was abnormal. She is on a 5-year colonoscopy scheduled for colonic polyps, last colonoscopy 5 years ago. B12 and folate WNL. Iron stores are low. EGD showed grade 1 lower third esophageal varices, moderate patchy hemorrhagic characteristic of the gastric antrum. GI recommended outpatient colonoscopy. Hemoglobin stable. ? Transfuse if Hgb less than 8 ? Will need PROPRANOLOL for variceal prophylaxis, if BP can tolerate ? Continue daily oral iron supplements #HTN #Asymptomatic sinus bradycardia Currently BP soft, normocardic. EKG shows sinus bradycardia, likely cirrhosis related on oral dysfunction versus BETA-BLOCKERS. ? Continue home LEVOTHYROXINE 112 mcg AC BR ? Consider resume home METOPROLOL when able #COPD, asthma #Chronic respiratory failure, on home 2 L O2 No signs of asthma or COPD exacerbation ? DuoNebs q.6h. PRN ? Will discharge on TRELEGY #T2DM A1c 7.7 from 08/2024. ? INSULIN sliding scale ? Accu-Cheks #Acute kidney injury -resolved #Prerenal 2/2 to hypotention Cr 0.9 Baseline Cr 0.9 ? Holding diuresis for now ? Monitor renal panel ? Renally dose meds, avoid overdiuresis and NEPHROTOXINS #Electrolyte abnormalities ? Daily labs, replete as needed Health maintenance Diet: Regular diet GI prophylaxis: PROTONIX DVT prophylaxis: HEPARIN subcu Antibiotics: No addition CODE STATUS: Full code Case was discussed with attending physician. Keith Daly DO PGY II This document was transcribed using voice recognition technology. Minor inaccuracies may be present. Attending Provider Attestation/Addendum I have discussed and was present for the essential components of the history, physical examination, diagnosis, and treatment plan with the resident. I agree with the patient's care as documented by the resident and amended herein by me. Didier Samuel DO. Although this document has been carefully reviewed, there may still be some phonetic and other typographical errors. These errors are purely grammatical due to imperfections in the software program and should not be construed in any way to compromise the substance of the patient's medical care during this visit. Patient still complaining of abdominal pain, paracentesis was performed today, with Reyna nuclear WBCs greater than 250 indicating SBP. Ceftriaxone has been started we will continue to monitor closely.
--- NOTE | 2025-02-05 18:23 | PD.IMPROG ---
Documentation for date of: 02/05/25 Subjective Subjective Interval history: Having bowel movements small bowel obstruction/ileus has resolved Melendez catheter resolved Large-volume paracentesis 6500 cc of fluid taken out Patient was able to ambulate with the help of physical therapy in the room today which should be continued aggressively Exam Vital Signs Temp Pulse Resp BP Pulse Ox O2 Del Method O2 Flow Rate 98.0 F 99 17 123/67 94 L Nasal Cannula 2 02/05/25 16:00 02/05/25 16:00 02/05/25 16:00 02/05/25 16:00 02/05/25 16:00 02/05/25 16:00 02/05/25 16:00 Objective Labs 02/05/25 04:58 02/05/25 04:58 Labs: Laboratory Results - last 24 hr 02/04/25 02/05/25 09:57 04:58 WBC 8.5 RBC 3.58 L Hgb 9.0 L Hct 28.9 L MCV 81 MCH 25.1 MCHC 31.1 RDW Std Deviation 49.6 H Plt Count 290 D Neut % (Auto) 73 Lymph % (Auto) 15 [place] % (Auto) 7 Eos % (Auto) 3 Baso % (Auto) 1 Neut # (Auto) 6.2 Lymph # (Auto) 1.3 [place] # (Auto) 0.6 Eos # (Auto) 0.3 Baso # (Auto) 0.1 Immature Gran # (Auto) 0.05 H Absolute Nucleated RBC 0.00 Immature Gran % 1 H Nucleated RBC % 0 Sodium 147 H Potassium 4.3 Chloride 107 Carbon Dioxide 29.6 Anion Gap 10 BUN 13 Creatinine 0.7 Estim Creat Clear Calc 82.6 eGFR > 60 BUN/Creatinine Ratio 19 Glucose 120 H Calculated Osmolality 293 Calcium 9.2 Corrected Calcium 9.5 Phosphorus 3.0 Magnesium 1.4 L Total Bilirubin 0.7 AST 28 ALT 10 Alkaline Phosphatase 215 H D Total Protein 6.4 Albumin 3.6 Globulin 2.8 Albumin/Globulin Ratio 1.3 Peritoneal Color Yellow Peritoneal Appearance Hazy Peritoneal WBC 1304 Peritoneal RBC 2000 Periton Polynucl WBCs 38 Periton Mononucl WBCs 62 Peritoneal Tot Protein 4 Peritoneal Albumin 2.2 Peritoneal LDH 220 Peritoneal Glucose 119 Peritoneal Amylase < 20 Impressions Impression: Small bowel obstruction resolved DC NGT End-stage liver disease advanced portal hypertension ascites status post large-volume ultrasound-guided paracentesis total of 6500 cc taken out Continue current management ABG Interpretation ABG results: 01/26/25 05:17 VBG pH 7.43 VBG pCO2 37 VBG pO2 59 H VBG Base Excess 0 Assessment & Plan A&P Narrative # Decompensated alcoholic liver disease with advanced portal hypertension esophageal varices and intractable ascites Plan Agree with the IV Lasix Agree with IV albumin Add spironolactone 25 mg p.o. twice daily Scheduled for therapeutic paracentesis Monitor renal function closely Consent obtained for fiberoptic esophagogastroduodenoscopy with possible biopsy possible therapeutic intervention for prophylactic band ligation of the esophageal varices Agree with IV ceftriaxone for the possibility of subacute bacterial peritonitis Will follow the patient Other medical problems include COPD on home oxygen 2 L nasal cannula Essential hypertension Hypothyroidism Hyperlipidemia Thank you very much for the opportunity to participate in care of this patient Time Spent With Patient Time: Total time spent is greater than 50% in coordination of care (as documented) at patient's floor/unit and/or counseling patient:
[2025-02-05] MEDS: ACETAMINOPHEN 325 MG TABLET 650 MG PO (19:38)
--- NOTE | 2025-02-05 19:43 | PC.NURSE ---
Patient had a chief complaint of pain. Pain mediation was administered and given to patient. Patient was also given ice chips and water.
--- NOTE | 2025-02-05 19:55 | PC.NURSE ---
Patient was assisted from bedside to cammode. 1 person assist.
--- NOTE | 2025-02-05 20:08 | ESPR_ITS ---
Documentation for date of: 02/05/25 Subjective Subjective Interval history: Patient was seen in telemetry today. She is off of NGT and got the paracentesis today and feels much better, started on a diet. Exam - Neurology Vital Signs Temp Pulse Resp BP Pulse Ox O2 Del Method O2 Flow Rate 98.0 F 99 17 123/67 94 L Nasal Cannula 2 02/05/25 16:00 02/05/25 16:00 02/05/25 16:00 02/05/25 16:00 02/05/25 16:00 02/05/25 16:00 02/05/25 16:00 Narrative Exam GENERAL APPEARANCE: Well hydrated, well-nourished in no acute distress. HEENT: Normocephalic, atraumatic, extraocular movements intact. Pupils: Equal reacting to light and accommodation NECK: Supple, no JVD or bruits. CARDIOVASULAR: Heart: S1, S2 heard, regular without S3-S4 or murmur no rubs or gallops. LUNGS/CHEST: Clear to auscultation bilaterally. No rails, rhonchi, or wheezing. Normal inspection. ABDOMEN: Distended with ascites EXTREMITIES: Normal inspection and palpation. No edema, clubbing or cyanosis. SKIN: Warm and dry without rashes. Normal inspection. MUSCULOSKELETAL: No cervical, thoracic, lumbar or midline bony tenderness. Normal inspection. NEURO: Alert, awake and oriented x3. Cranial nerves: II through XII grossly intact. Speech and language: Normal with no dysarthria or dysphasia. Motor system: Tone and bulk: Normal: Strength: 5 out of 5 in all 4 extremities; No pronator drift noted. Deep tendon reflexes: 2+ bilaterally symmetrical. Plantar reflex: Downgoing bilaterally. Sensory system: Intact to all modalities of sensation bilaterally. Coordination: Intact to [id number] and [id number] test bilaterally. No ataxia, no dysmetria, or dysdiadochokinesia noted. No intention tremors noted. Gait: walks in the room with a walker. No signs of meningeal irritation noted. PSYCHIATRIC: Normal mood and affect. Objective Labs 02/06/25 05:14 02/06/25 05:14 Labs: Laboratory Results - last 24 hr 02/04/25 02/05/25 09:57 04:58 WBC 8.5 RBC 3.58 L Hgb 9.0 L Hct 28.9 L MCV 81 MCH 25.1 MCHC 31.1 RDW Std Deviation 49.6 H Plt Count 290 D Neut % (Auto) 73 Lymph % (Auto) 15 [place] % (Auto) 7 Eos % (Auto) 3 Baso % (Auto) 1 Neut # (Auto) 6.2 Lymph # (Auto) 1.3 [place] # (Auto) 0.6 Eos # (Auto) 0.3 Baso # (Auto) 0.1 Immature Gran # (Auto) 0.05 H Absolute Nucleated RBC 0.00 Immature Gran % 1 H Nucleated RBC % 0 Sodium 147 H Potassium 4.3 Chloride 107 Carbon Dioxide 29.6 Anion Gap 10 BUN 13 Creatinine 0.7 Estim Creat Clear Calc 82.6 eGFR > 60 BUN/Creatinine Ratio 19 Glucose 120 H Calculated Osmolality 293 Calcium 9.2 Corrected Calcium 9.5 Phosphorus 3.0 Magnesium 1.4 L Total Bilirubin 0.7 AST 28 ALT 10 Alkaline Phosphatase 215 H D Total Protein 6.4 Albumin 3.6 Globulin 2.8 Albumin/Globulin Ratio 1.3 Peritoneal Color Yellow Peritoneal Appearance Hazy Peritoneal WBC 1304 Peritoneal RBC 2000 Periton Polynucl WBCs 38 Periton Mononucl WBCs 62 Peritoneal Tot Protein 4 Peritoneal Albumin 2.2 Peritoneal LDH 220 Peritoneal Glucose 119 Peritoneal Amylase < 20 ABG Interpretation ABG results: 01/26/25 05:17 VBG pH 7.43 VBG pCO2 37 VBG pO2 59 H VBG Base Excess 0 Assessment & Plan Assessment and plan (1) Hepatic encephalopathy: Status: Acute Assessment and plan: Resolving Continue to monitor her closely and restrict the use of opiates Patient might need paracentesis as the abdominal distention gets worse. Advance diet as tolerated.
[2025-02-05] MEDS: MELATONIN 3 MG TABLET PO (20:13)
[2025-02-05] MEDS: ASCORBIC ACID 250 MG TABLET PO (20:13)
[2025-02-06] VITALS (13 sets, daily range): BP systolic 116–137; BP diastolic 64–80; PULSE 88–110; RESP 14–21; TEMP 36–36.6; O2SAT 90–98
[2025-02-06] MEDS: LEVOTHYROXINE SODIUM 112 MCG TABLET PO (05:04)
[2025-02-06] MEDS: ACETAMINOPHEN 325 MG TABLET 650 MG PO ×3 (05:04→17:50)
[2025-02-06] MEDS: SIMETHICONE 80 MG CHEW PO ×4 (05:04→21:17)
[2025-02-06 06:16] LABS: Basophils # (Auto) 0.1 Thou/mm3 (0.0-0.2); Basophils % (Auto) 1 % (0-2.5); Eosinophils # (Auto) 0.3 Thou/mm3 (0.0-0.5); Eosinophils % (Auto) 3 % (0-10); Hematocrit 30.8 % (36.0-46.0); Hemoglobin 9.7 g/dL (12.0-16.0); Immature Granulocytes Auto 0.04 Thou/mm3 (0.00-0.00); Lymphocytes # (Auto) 1.2 Thou/mm3 (1.0-4.8); Lymphocytes % (Auto) 14 % (10-50); Mean Corpuscular HGB Conc 31.5 g/dl (31.0-37.0); Mean Corpuscular Hemoglobin 25.1 pg (25.0-35.0); Mean Corpuscular Volume 80 fL (80-100); Monocytes # (Auto) 0.5 Thou/mm3 (0.0-0.8); Monocytes % (Auto) 7 % (0-12); Neutrophils # (Auto) 6.3 Thou/mm3 (1.8-7.7); Neutrophils % (Auto) 75 % (37-80); Nucleated Red Blood Cell # 0.00 Thou/mm3 (0.00-0.00); Nucleated Red Blood Cell % 0 /100 WBC (0); Platelet Count 307 Thou/mm3 (140-440); RDW Standard Deviation 53.1 fL (36.4-46.3); Red Blood Count 3.86 Miln/mm3 (4.00-5.20); White Blood Count 8.4 Thou/mm3 (3.6-11.0)
[2025-02-06 06:38] LABS: Alanine Aminotransferase 11 U/L (10-49); Albumin, Serum 3.8 gm/dL (3.4-4.8); Albumin/Globulin Ratio 1.3 (1.2-2.2); Alkaline Phosphatase 204 U/L (46-116); Anion Gap 12 (7-16); Aspartate Amino Transferase 28 U/L (0-34); BUN/Creatinine Ratio 16 Ratio (12-20); Bilirubin,Total 0.6 mg/dL (0.3-1.2); Blood Urea Nitrogen 11 mg/dL (9-23); Calcium 9.6 mg/dL (8.3-10.6); Calcium (Corrected) 9.8 mg/dL (8.5-10.1); Carbon Dioxide 28.2 mMol/L (20.0-31.0); Chloride 106 mMol/L (98-107); Creatinine (Component) 0.7 mg/dL (0.6-1.3); Estimated Creatinine Clearance 82.6 mL/min (>60); Globulin 2.9 gm/dL (2.3-3.5); Glucose 141 mg/dL (74-106); Magnesium 1.8 mg/dL (1.6-2.6); Osmolality,Calculated 291 (275-295); Phosphorous 3.1 mg/dL (2.4-5.1); Potassium 4.0 mMol/L (3.4-5.1); Sodium 146 mMol/L (136-145); Total Protein 6.7 gm/dL (5.7-8.2); eGFR > 60 See Note
[2025-02-06] MEDS: SPIRONOLACTONE 25 MG TABLET PO (08:32)
[2025-02-06] MEDS: THIAMINE 100 MG TABLET PO (08:32)
[2025-02-06] MEDS: MULTIVITAMINS TABLET 1 TAB PO (08:32)
[2025-02-06] MEDS: ESCITALOPRAM OXALATE 10 MG TABLET 20 MG PO (08:33)
[2025-02-06] MEDS: FOLIC ACID 1 MG TABLET PO (08:33)
[2025-02-06] MEDS: ALBUMIN HUMAN 25% IVPB 12.5 GM/50 ML BTL IV (08:34)
[2025-02-06] MEDS: cefTRIAXone/D5w 2gm 2 GM/50 ML BAG IV (08:34)
[2025-02-06] MEDS: LIOTHYRONINE SOD 5 mCg TABLET 10 MCG PO (08:38)
[2025-02-06] MEDS: ASCORBIC ACID 250 MG TABLET PO ×2 (08:39→20:18)
[2025-02-06] MEDS: LIDOCAINE 5% 1 PATCH TOP (11:26)
--- NOTE | 2025-02-06 11:29 | PD.RESPRO ---
Documentation for date of: 02/06/25 Subjective Subjective Interval history: No acute overnight events. Seen and examined at bedside. Appears much better today, able to ambulate around the room independently. Mentation have improved substantially. Tolerating oral intake, continued on MIRALAX, having regular BMs, about 4?5 today. Overall, tolerating MIRALAX better than she did with LACTULOSE, will likely discharge on MIRALAX and LACTULOSE PRN. Had paracentesis yesterday, 6.4 L removed. Analysis showing SBP possibly for which CEFTRIAXONE was started. Unclear if peritoneal culture was obtained although orders were placed, and unable to get a hold of microbiology to confirm, however new order for peritoneal fluid culture was placed. We started LASIX 20 mg, SPIRONOLACTONE 25 mg, and will consider CARVEDILOL if blood pressure tolerates. Exam Vital Signs Temp Pulse Resp BP Pulse Ox O2 Del Method O2 Flow Rate 97.2 F 106 H 16 133/80 H 96 Nasal Cannula 1 02/06/25 08:00 02/06/25 08:32 02/06/25 08:00 02/06/25 08:32 02/06/25 08:00 02/06/25 08:00 02/06/25 08:00 Narrative Exam GENERAL Normal appearing adult female, NAD. HEENT NCAT. GEOVANNI. Oral mucosa is moist. Patent Nares NECK Supple, nontender, no JVD. CHEST RRR, no m/g/r, bilateral inspiratory crackles,no work of breathing, symmetrical expansion. ABDOMEN Soft, distention improving, minimal tenderness throughout. No guarding/rebound tenderness/masses. Bowel sounds presents EXTREMITIES No edema/cyanosis. SKIN Warm and dry, no jaundice/rashes. Slightly pale. NEUROMUSCULAR Asterixis bilaterally of upper extremities. Moves all 4 extremities slowly, with full ROM. No focal neurologic deficits. PSYCHIATRY Normal mood and affect, cooperative, no hallucinations Objective Labs 02/06/25 05:14 02/06/25 05:14 Labs: Laboratory Results - last 24 hr 02/04/25 02/06/25 09:57 05:14 WBC 8.4 RBC 3.86 L Hgb 9.7 L Hct 30.8 L MCV 80 MCH 25.1 MCHC 31.5 RDW Std Deviation 53.1 H Plt Count 307 Neut % (Auto) 75 Lymph % (Auto) 14 [place] % (Auto) 7 Eos % (Auto) 3 Baso % (Auto) 1 Neut # (Auto) 6.3 Lymph # (Auto) 1.2 [place] # (Auto) 0.5 Eos # (Auto) 0.3 Baso # (Auto) 0.1 Immature Gran # (Auto) 0.04 H Absolute Nucleated RBC 0.00 Immature Gran % 1 H Nucleated RBC % 0 Sodium 146 H Potassium 4.0 Chloride 106 Carbon Dioxide 28.2 Anion Gap 12 BUN 11 Creatinine 0.7 Estim Creat Clear Calc 82.6 eGFR > 60 BUN/Creatinine Ratio 16 Glucose 141 H Calculated Osmolality 291 Calcium 9.6 Corrected Calcium 9.8 Phosphorus 3.1 Magnesium 1.8 Total Bilirubin 0.6 AST 28 ALT 11 Alkaline Phosphatase 204 H Total Protein 6.7 Albumin 3.8 Globulin 2.9 Albumin/Globulin Ratio 1.3 Peritoneal Color Yellow Peritoneal Appearance Hazy Peritoneal WBC 1304 Peritoneal RBC 2000 Periton Polynucl WBCs 38 Periton Mononucl WBCs 62 Peritoneal Tot Protein 4 Peritoneal Albumin 2.2 Peritoneal LDH 220 Peritoneal Glucose 119 Peritoneal Amylase < 20 ABG Interpretation ABG results: 01/26/25 05:17 VBG pH 7.43 VBG pCO2 37 VBG pO2 59 H VBG Base Excess 0 Quality Measures Quality Measures VTE prophylaxis Advance care planning discussed with:: patient Assessment & Plan Assessment Current Active Medications: Generic Name Dose Route Start Last Admin Trade Name Freq PRN Reason Stop Dose Admin Acetaminophen 650 mg 01/20/25 16:47 02/06/25 11:27 Acetaminophen 325 Mg Tablet PO 02/19/25 16:46 650 mg Q6H PRN Administration PAIN SCALE 1-3 (mild Acetaminophen 650 mg 01/20/25 16:47 01/24/25 19:47 Acetaminophen 325 Mg Tablet PO 02/19/25 16:46 650 mg Q6H PRN Administration Fever >100.4 Albuterol/Ipratropium 3 ml 01/20/25 18:38 01/29/25 21:46 Albuterol/Ipratropium (Duoneb) Rt Lisset 3 Ml Nebu INH 02/19/25 18:37 3 ml Q6HRRT PRN Administration Wheezing Ascorbic Acid 250 mg 01/29/25 09:00 02/06/25 08:39 Ascorbic Acid 250 Mg Tablet PO 02/28/25 08:59 250 mg BID REYNA Administration Carvedilol 3.125 mg 01/29/25 17:30 02/01/25 08:08 Carvedilol 3.125 Mg Tablet PO 02/28/25 17:29 3.125 mg BIDWM REYNA Administration Dextrose 25 ml 01/20/25 18:39 Dextrose 50%-Water Inj 50 Ml Syringe IV 02/19/25 18:38 Q15MIN PRN BG 50-70 responsive npo pt Dextrose 50 ml 01/20/25 18:39 Dextrose 50%-Water Inj 50 Ml Syringe IV 02/19/25 18:38 Q15MIN PRN BG <50 OR BG <70 & pt unresponsive Docusate Sodium 200 mg 01/24/25 21:00 02/05/25 10:00 Docusate Sod 100 Mg Capsule PO 02/23/25 20:59 Not Given QDAY REYNA Protocol Escitalopram Oxalate 20 mg 01/24/25 16:30 02/06/25 08:33 Escitalopram Oxalate 10 Mg Tablet PO 02/23/25 16:29 20 mg QDAY REYNA Administration Folic Acid 1 mg 01/29/25 09:00 02/06/25 08:33 Folic Acid 1 Mg Tablet PO 02/28/25 08:59 1 mg QDAY REYNA Administration Furosemide 20 mg 02/06/25 09:00 Furosemide 20 Mg Tablet PO 03/08/25 08:59 QDAY REYNA Glucagon 1 mg 01/20/25 18:39 Glucagon Inj 1 Mg Vial IM Q15MIN PRN BG <70, and no IV access Albumin Human 12.5 gm in 50 mls @ 100 mls/hr 02/01/25 07:53 02/06/25 08:34 Albuminar-25 Ivpb IV 03/03/25 07:52 100 mls/hr QDAY REYNA Administration Ceftriaxone Sodium/Dextrose 2 gm in 50 mls @ 100 mls/hr 02/06/25 09:00 02/06/25 08:34 Rocephin/D5w 2gm IV 02/12/25 15:56 100 mls/hr QDAY REYNA Administration Insulin Human Lispro 0 unit 02/05/25 17:00 02/05/25 20:08 Insulin Lispro (Admelog) 1 Unit/0.01 Ml Unit SC 02/19/25 20:59 Not Given ACHS REYNA Protocol Lactulose 200 gm 02/02/25 15:30 02/04/25 19:27 Lactulose Syrup 20 Gm/30 Ml Udc DC 03/04/25 15:29 Not Given QDAY REYNA Protocol Levothyroxine Sodium 112 mcg 01/21/25 06:00 02/06/25 05:04 Levothyroxine Sodium 112 Mcg Tablet PO 02/20/25 05:59 112 mcg ACBR REYNA Administration Lidocaine 1 patch 02/06/25 10:30 02/06/25 11:26 Lidocaine 5% 1 Patch TOP 03/08/25 10:29 1 patch DAILY REYNA Administration Protocol Liothyronine Sodium 10 mcg 01/25/25 14:15 02/06/25 08:38 Liothyronine Sod 5 Mcg Tablet PO 02/24/25 14:14 10 mcg QDAY REYNA Administration Loratadine 10 mg 01/21/25 09:00 02/06/25 08:33 Loratadine 10 Mg Tablet PO 02/20/25 08:59 10 mg QDAY REYNA Administration Melatonin 3 mg 02/02/25 21:00 02/05/25 20:13 Melatonin 3 Mg Tablet PO 03/04/25 20:59 3 mg HS REYNA Administration Midodrine 5 mg 02/05/25 14:00 02/06/25 05:06 Midodrine 5 Mg Tablet PO 03/02/25 13:59 Not Given TID REYNA Multivitamins 1 tab 01/29/25 09:00 02/06/25 08:32 Multivitamins Tablet PO 02/28/25 08:59 1 tab QDAY REYNA Administration Ondansetron HCl 4 mg 01/20/25 16:47 01/31/25 21:20 Ondansetron Inj 2 Mg/Ml Inj 2 Ml IVP 02/19/25 16:46 4 mg Q6H PRN Administration NAUSEA OR VOMITING Protocol Pantoprazole Sodium 40 mg 02/03/25 09:30 02/06/25 08:33 Pantoprazole Inj 40 Mg Vial IVP 03/05/25 09:29 40 mg BID REYNA Administration Polyethylene Glycol 17 gm 02/05/25 10:15 02/05/25 11:29 Polyethylene Glycol 17 Gm Packet PO 03/07/25 10:14 17 gm QDAY REYNA Administration Pregabalin 100 mg 02/01/25 21:00 02/05/25 10:01 Pregabalin 50 Mg Capsule PO 03/03/25 20:59 Not Given BID REYNA Rifaximin 550 mg 02/06/25 09:45 02/06/25 10:40 Rifaximin 550 Mg Tablet PO 02/13/25 09:44 550 mg BID REYNA Administration Simethicone 80 mg 02/05/25 12:00 02/06/25 05:04 Simethicone 80 Mg Chew PO 03/07/25 11:59 80 mg QID REYNA Administration Spironolactone 25 mg 01/29/25 10:15 02/06/25 08:32 Spironolactone 25 Mg Tablet PO 02/28/25 10:14 25 mg QDAY REYNA Administration Thiamine HCl 100 mg 01/29/25 09:00 02/06/25 08:32 Thiamine 100 Mg Tablet PO 02/28/25 08:59 100 mg QDAY REYNA Administration Tramadol HCl 50 mg 02/05/25 10:14 02/06/25 08:32 Tramadol Hcl 50 Mg Tablet PO 02/10/25 10:13 50 mg Q6HR PRN Administration Pain 6-10 Plan Assessment: 64 year-old female with PMHx of alcoholic liver cirrhosis, COPD on home O2, hypothyroidism, asthma, HTN, T2DM and anxiety who presented to the ED with worsening ascites and abdominal discomfort. Admitted under observation for therapeutic/diagnostic paracentesis. #Acute hepatic encephalopathy (resolved) #Acute decompensated alcoholic liver cirrhosis #Intractable ascites (improving) #Advanced portal hypertension (stable) #Esophageal varices (stable) #Subacute bacterial peritonitis (resolved) Significant alcohol use history, cirrhosis diagnosed in 08/2023. Has been on SPIRONOLACTONE, presenting with 1 month of worsening abdominal ascites. Abdominal CT showed cirrhosis, significant ascites, prominent splenomegaly, anasarca, esophageal and perigastric varices, no bowel obstruction. MELD score 9 equates to 6% mortality in 3 months. Child-Wilhelm score 7, Class B, indication for transplant evaluation. SAAG < 1.1 g/dL Portal hypertension is not necessarily the cause of ascites MELD-Na Score (01/28/2025) 12 points, <2% mortality estimated 90 day mortality Completed 10 days of CEFTRIAXONE for SBP prophylaxis with the addition of few days of FLUCONAZOLE. Afebrile, no leukocytosis At this point, there is evidence of poor tolerance to LACTULOSE with increased renal distention and recurrent ileus, and overall slowed gut motility. As result, we elected to proceed with MIRALAX to prevent further complications LACTULOSE, including risk for bowel ischemia given aggressive amount of LACTULOSE required to achieve results. Having good bowel movements with MIRALAX. Plan: ? Continue MIDODRINE 5 mg TID ? Continue RIFAXIMIN BID ? Continue MIRALAX daily ? Continue CEFTRIAXONE (02/06 to present) ? Started LASIX 20 mg daily ? Started SPIRONOLACTONE 25 mg daily ? Consider starting CARVEDILOL if BP allows ? Discontinued ALBUMIN daily ? Will consider resuming LACTULOSE after bowel rest ? Encourage oral intake ? Fluid restriction ? Sodium restriction of 2 g/day Possible polypharmacy Hx anxiety She is on multiple anxiolytics. Neurology is following, URSULA showed diffuse slowing c/w hepatic encephalopathy ? Holding home PRIMIDONE, ZOLPIDEM in settings of acute encephalopathy. ? Holding home LEXAPRO daily given acute encepahlopathy ? Continuing Home LYRICA BID Hypothyroidism TSH 2.33 Free T4 1.15 Thyroxine T3 48.2 Free T3 0.8 Patient was taking liothyronine 20 mcg daily but was not started in hospital - Liothyronine 10 mcg daily started today, half of patient's home dose ? Levothyroxine 112 mcg daily #Microcytic anemia (stable) #Grade 1 esophageal varices #Mild thrombocytopenia (resolved) Hgb baseline 11.4. Likely iron deficiency versus cirrhosis. CT showed esophageal and perigastric varices. Reports chronic, recurrent hemorrhoidal bleed, but denies dark stool or upper GI bleed. Had an EGD last year and was abnormal. She is on a 5-year colonoscopy scheduled for colonic polyps, last colonoscopy 5 years ago. B12 and folate WNL. Iron stores are low. EGD showed grade 1 lower third esophageal varices, moderate patchy hemorrhagic characteristic of the gastric antrum. GI recommended outpatient colonoscopy. Hemoglobin stable. ? Transfuse if Hgb less than 8 ? Will need PROPRANOLOL for variceal prophylaxis, if BP can tolerate ? Continue daily oral iron supplements #HTN #Asymptomatic sinus bradycardia Currently BP soft, normocardic. EKG shows sinus bradycardia, likely cirrhosis related on oral dysfunction versus BETA-BLOCKERS. ? Continue home LEVOTHYROXINE 112 mcg AC BR ? Consider resume home METOPROLOL when able #COPD, asthma #Chronic respiratory failure, on home 2 L O2 No signs of asthma or COPD exacerbation ? DuoNebs q.6h. PRN ? Will discharge on TRELEGY #T2DM A1c 7.7 from 08/2024. ? INSULIN sliding scale ? Accu-Cheks #Acute kidney injury -resolved #Prerenal 2/2 to hypotention Cr 0.9 Baseline Cr 0.9 ? Holding diuresis for now ? Monitor renal panel ? Renally dose meds, avoid overdiuresis and NEPHROTOXINS Electrolyte abnormalities ? Daily labs, replete as needed Chronic back pain Started LIDOCAINE patches #SBO (resolved) #Constipation (resolved) #Abdominal distention?slowly improving Resolved with GASTROGRAFIN bowel series, continued on MIRALAX as above Health maintenance Diet: Regular diet GI prophylaxis: PROTONIX DVT prophylaxis: HEPARIN subcu Antibiotics: No addition CODE STATUS: Full code Case was discussed with attending physician. Keith Daly DO PGY II This document was transcribed using voice recognition technology. Minor inaccuracies may be present. Attending Provider Attestation/Addendum I have discussed and was present for the essential components of the history, physical examination, diagnosis, and treatment plan with the resident. I agree with the patient's care as documented by the resident and amended herein by me. Didier Samuel DO. Although this document has been carefully reviewed, there may still be some phonetic and other typographical errors. These errors are purely grammatical due to imperfections in the software program and should not be construed in any way to compromise the substance of the patient's medical care during this visit. Patient seen and evaluated this AM. Patient significantly improved today, has been up, sitting in chair and ambulatory. Paracentesis yesterday removed 6500 cc of fluid, fluid studies also indicated SBP and ceftriaxone 2 g daily has been started. Will continue to monitor fluid cultures, we will also attempt to restart the patient's Lasix and spironolactone today blood close on her kidney function. Likely discharge in 1 to 2 days pending continued improvement.
[2025-02-06] MEDS: INSULIN LISPRO (AdmeLOG) 1 UNIT/0.01 ML UNIT SC ×2 (12:10→20:18)
--- NOTE | 2025-02-06 14:36 | PC.NURSE ---
Pt is swallowing good, Ernesto said I can change her diet from dys 2 to dys 3 or regular texture per the request of the pt. I am starting with dys 3, if she does well I will change it to regular texture.
--- NOTE | 2025-02-06 18:15 | ESPR_ITS ---
Documentation for date of: 02/06/25 Subjective Subjective Interval history: Having bowel movements on MiraLAX mental status has cleared up abdominal distention is down tolerating diet Exam Vital Signs Temp Pulse Resp BP Pulse Ox O2 Del Method O2 Flow Rate 96.8 F 105 H 20 116/64 96 Room Air 1 02/06/25 16:00 02/06/25 16:00 02/06/25 16:00 02/06/25 16:00 02/06/25 16:00 02/06/25 16:00 02/06/25 08:00 Objective Labs 02/06/25 05:14 02/06/25 05:14 Labs: Laboratory Results - last 24 hr 02/06/25 05:14 WBC 8.4 RBC 3.86 L Hgb 9.7 L Hct 30.8 L MCV 80 MCH 25.1 MCHC 31.5 RDW Std Deviation 53.1 H Plt Count 307 Neut % (Auto) 75 Lymph % (Auto) 14 [place] % (Auto) 7 Eos % (Auto) 3 Baso % (Auto) 1 Neut # (Auto) 6.3 Lymph # (Auto) 1.2 [place] # (Auto) 0.5 Eos # (Auto) 0.3 Baso # (Auto) 0.1 Immature Gran # (Auto) 0.04 H Absolute Nucleated RBC 0.00 Immature Gran % 1 H Nucleated RBC % 0 Sodium 146 H Potassium 4.0 Chloride 106 Carbon Dioxide 28.2 Anion Gap 12 BUN 11 Creatinine 0.7 Estim Creat Clear Calc 82.6 eGFR > 60 BUN/Creatinine Ratio 16 Glucose 141 H Calculated Osmolality 291 Calcium 9.6 Corrected Calcium 9.8 Phosphorus 3.1 Magnesium 1.8 Total Bilirubin 0.6 AST 28 ALT 11 Alkaline Phosphatase 204 H Total Protein 6.7 Albumin 3.8 Globulin 2.9 Albumin/Globulin Ratio 1.3 Impressions Impression: SBO/ileus resolved chronic liver disease Advanced portal hypertension ascites status post large-volume paracentesis hepatic encephalopathy improving Continue current management ABG Interpretation ABG results: 01/26/25 05:17 VBG pH 7.43 VBG pCO2 37 VBG pO2 59 H VBG Base Excess 0 Assessment & Plan A&P Narrative # Decompensated alcoholic liver disease with advanced portal hypertension esophageal varices and intractable ascites Plan Agree with the IV Lasix Agree with IV albumin Add spironolactone 25 mg p.o. twice daily Scheduled for therapeutic paracentesis Monitor renal function closely Consent obtained for fiberoptic esophagogastroduodenoscopy with possible biopsy possible therapeutic intervention for prophylactic band ligation of the esophageal varices Agree with IV ceftriaxone for the possibility of subacute bacterial peritonitis Will follow the patient Other medical problems include COPD on home oxygen 2 L nasal cannula Essential hypertension Hypothyroidism Hyperlipidemia Thank you very much for the opportunity to participate in care of this patient Time Spent With Patient Time: Total time spent is greater than 50% in coordination of care (as documented) at patient's floor/unit and/or counseling patient:
[2025-02-06] MEDS: ZOLPIDEM 5 MG TABLET PO (20:18)
--- NOTE | 2025-02-06 23:56 | PD.VPROG1 ---
Telemedicine visit statement This visit was conducted with the use of phone was obtained on 02/06/25 at 2356. Documentation for date of: 02/06/25 Subjective Subjective Interval history: Patient is in telemetry. Continues to have abdominal pain, but distention is better after the recent tap from yesterday, tolerating diet being advanced. Virtual exam Vital Signs Temp Pulse Resp BP Pulse Ox O2 Del Method O2 Flow Rate 97.5 F 109 H 21 H 124/73 93 L Room Air 1 02/06/25 20:00 02/06/25 21:22 02/06/25 20:00 02/06/25 21:22 02/06/25 20:00 02/06/25 20:00 02/06/25 18:21 Objective Labs 02/06/25 05:14 02/06/25 05:14 Labs: Laboratory Results - last 24 hr 02/06/25 05:14 WBC 8.4 RBC 3.86 L Hgb 9.7 L Hct 30.8 L MCV 80 MCH 25.1 MCHC 31.5 RDW Std Deviation 53.1 H Plt Count 307 Neut % (Auto) 75 Lymph % (Auto) 14 [place] % (Auto) 7 Eos % (Auto) 3 Baso % (Auto) 1 Neut # (Auto) 6.3 Lymph # (Auto) 1.2 [place] # (Auto) 0.5 Eos # (Auto) 0.3 Baso # (Auto) 0.1 Immature Gran # (Auto) 0.04 H Absolute Nucleated RBC 0.00 Immature Gran % 1 H Nucleated RBC % 0 Sodium 146 H Potassium 4.0 Chloride 106 Carbon Dioxide 28.2 Anion Gap 12 BUN 11 Creatinine 0.7 Estim Creat Clear Calc 82.6 eGFR > 60 BUN/Creatinine Ratio 16 Glucose 141 H Calculated Osmolality 291 Calcium 9.6 Corrected Calcium 9.8 Phosphorus 3.1 Magnesium 1.8 Total Bilirubin 0.6 AST 28 ALT 11 Alkaline Phosphatase 204 H Total Protein 6.7 Albumin 3.8 Globulin 2.9 Albumin/Globulin Ratio 1.3 ABG Interpretation ABG results: 01/26/25 05:17 VBG pH 7.43 VBG pCO2 37 VBG pO2 59 H VBG Base Excess 0 Assessment & Plan Problem List (1) Hepatic encephalopathy: Status: Acute Assessment and plan: Will continue to monitor her mental status closely Restrict usage of narcotics even though she asks for it for pain control as it can lead to changes with worsening mental status changes and constipation Continue with Lexapro
[2025-02-07] VITALS (17 sets, daily range): BP systolic 103–134; BP diastolic 58–85; PULSE 88–136; RESP 15–98; TEMP 35.9–36.7; O2SAT 92–98
[2025-02-07] MEDS: SIMETHICONE 80 MG CHEW PO ×4 (05:54→21:40)
[2025-02-07] MEDS: LEVOTHYROXINE SODIUM 112 MCG TABLET PO (05:54)
[2025-02-07 05:56] LABS: Basophils # (Auto) 0.1 Thou/mm3 (0.0-0.2); Basophils % (Auto) 1 % (0-2.5); Eosinophils # (Auto) 0.3 Thou/mm3 (0.0-0.5); Eosinophils % (Auto) 3 % (0-10); Hematocrit 32.6 % (36.0-46.0); Hemoglobin 10.1 g/dL (12.0-16.0); Immature Granulocytes Auto 0.04 Thou/mm3 (0.00-0.00); Lymphocytes # (Auto) 1.3 Thou/mm3 (1.0-4.8); Lymphocytes % (Auto) 15 % (10-50); Mean Corpuscular HGB Conc 31.0 g/dl (31.0-37.0); Mean Corpuscular Hemoglobin 24.9 pg (25.0-35.0); Mean Corpuscular Volume 80 fL (80-100); Monocytes # (Auto) 0.5 Thou/mm3 (0.0-0.8); Monocytes % (Auto) 5 % (0-12); Neutrophils # (Auto) 6.9 Thou/mm3 (1.8-7.7); Neutrophils % (Auto) 75 % (37-80); Nucleated Red Blood Cell # 0.00 Thou/mm3 (0.00-0.00); Nucleated Red Blood Cell % 0 /100 WBC (0); Platelet Count 299 Thou/mm3 (140-440); RDW Standard Deviation 54.8 fL (36.4-46.3); Red Blood Count 4.06 Miln/mm3 (4.00-5.20); White Blood Count 9.2 Thou/mm3 (3.6-11.0)
[2025-02-07 06:30] LABS: Alanine Aminotransferase 11 U/L (10-49); Albumin, Serum 4.0 gm/dL (3.4-4.8); Albumin/Globulin Ratio 1.3 (1.2-2.2); Alkaline Phosphatase 205 U/L (46-116); Anion Gap 12 (7-16); Aspartate Amino Transferase 26 U/L (0-34); BUN/Creatinine Ratio 17 Ratio (12-20); Bilirubin,Total 0.6 mg/dL (0.3-1.2); Blood Urea Nitrogen 12 mg/dL (9-23); Calcium 9.7 mg/dL (8.3-10.6); Calcium (Corrected) 9.7 mg/dL (8.5-10.1); Carbon Dioxide 27.0 mMol/L (20.0-31.0); Chloride 106 mMol/L (98-107); Creatinine (Component) 0.7 mg/dL (0.6-1.3); Estimated Creatinine Clearance 82.6 mL/min (>60); Globulin 3.0 gm/dL (2.3-3.5); Glucose 141 mg/dL (74-106); Magnesium 1.2 mg/dL (1.6-2.6); Osmolality,Calculated 290 (275-295); Phosphorous 3.6 mg/dL (2.4-5.1); Potassium 4.2 mMol/L (3.4-5.1); Sodium 145 mMol/L (136-145); Total Protein 7.0 gm/dL (5.7-8.2); eGFR > 60 See Note
[2025-02-07] MEDS: ACETAMINOPHEN 325 MG TABLET PO (07:51)
--- NOTE | 2025-02-07 08:15 | PD.RESPRO ---
Documentation for date of: 02/07/25 Subjective Subjective Interval history: No acute overnight events. Seen and examined at bedside. Denies new or worsening symptoms. Bowel movements have been regular, tolerated diuresis well. Complains of back pain which is chronic, however abdominal pain appears to be improving. Overall she has made good progress. Will keep her for another day to ensure she is tolerating diuresis and will likely discharge tomorrow if remains stable. Of note: NIFEDIPINE was accidentally ordered for this patient. My attending was informed. I also discussed with the patient that she received the medication by accident today. Nonetheless, actions were taken. We continued to monitor blood pressure regularly, although decreased to 103/58, it eventually improved towards normal. She remained asymptomatic, and there were no reported side effects from the medication. Will continue to monitor closely. Exam Vital Signs Temp Pulse Resp BP Pulse Ox O2 Del Method O2 Flow Rate 97.7 F 105 H 17 130/85 H 94 L Room Air 1 02/07/25 07:59 02/07/25 07:59 02/07/25 07:59 02/07/25 07:59 02/07/25 07:59 02/07/25 07:59 02/06/25 18:21 Narrative Exam GENERAL Normal appearing adult female, NAD. HEENT NCAT. GEOVANNI. Oral mucosa is moist. Patent Nares NECK Supple, nontender, no JVD. CHEST RRR, no m/g/r, bilateral inspiratory crackles,no work of breathing, symmetrical expansion. ABDOMEN Soft, minimal abdominal distention and tenderness. No guarding/rebound tenderness/masses. Bowel sounds presents EXTREMITIES No edema/cyanosis. SKIN Warm and dry, no jaundice/rashes. Slightly pale. NEUROMUSCULAR Asterixis bilaterally of upper extremities. Moves all 4 extremities slowly, with full ROM. No focal neurologic deficits. PSYCHIATRY Normal mood and affect, cooperative, no hallucinations Objective Labs 02/07/25 05:18 02/07/25 05:18 Labs: Laboratory Results - last 24 hr 02/07/25 05:18 WBC 9.2 RBC 4.06 Hgb 10.1 L Hct 32.6 L MCV 80 MCH 24.9 L MCHC 31.0 RDW Std Deviation 54.8 H Plt Count 299 Neut % (Auto) 75 Lymph % (Auto) 15 [place] % (Auto) 5 Eos % (Auto) 3 Baso % (Auto) 1 Neut # (Auto) 6.9 Lymph # (Auto) 1.3 [place] # (Auto) 0.5 Eos # (Auto) 0.3 Baso # (Auto) 0.1 Immature Gran # (Auto) 0.04 H Absolute Nucleated RBC 0.00 Immature Gran % 0 Nucleated RBC % 0 Sodium 145 Potassium 4.2 Chloride 106 Carbon Dioxide 27.0 Anion Gap 12 BUN 12 Creatinine 0.7 Estim Creat Clear Calc 82.6 eGFR > 60 BUN/Creatinine Ratio 17 Glucose 141 H Calculated Osmolality 290 Calcium 9.7 Corrected Calcium 9.7 Phosphorus 3.6 Magnesium 1.2 L Total Bilirubin 0.6 AST 26 ALT 11 Alkaline Phosphatase 205 H Total Protein 7.0 Albumin 4.0 Globulin 3.0 Albumin/Globulin Ratio 1.3 ABG Interpretation ABG results: 01/26/25 05:17 VBG pH 7.43 VBG pCO2 37 VBG pO2 59 H VBG Base Excess 0 Quality Measures Quality Measures VTE prophylaxis Advance care planning discussed with:: patient Assessment & Plan Assessment Current Active Medications: Generic Name Dose Route Start Last Admin Trade Name Freq PRN Reason Stop Dose Admin Acetaminophen 650 mg 01/20/25 16:47 02/06/25 17:50 Acetaminophen 325 Mg Tablet PO 02/19/25 16:46 650 mg Q6H PRN Administration PAIN SCALE 1-3 (mild Acetaminophen 650 mg 01/20/25 16:47 01/24/25 19:47 Acetaminophen 325 Mg Tablet PO 02/19/25 16:46 650 mg Q6H PRN Administration Fever >100.4 Albuterol/Ipratropium 3 ml 01/20/25 18:38 01/29/25 21:46 Albuterol/Ipratropium (Duoneb) Rt Lisset 3 Ml Nebu INH 02/19/25 18:37 3 ml Q6HRRT PRN Administration Wheezing Ascorbic Acid 250 mg 01/29/25 09:00 02/06/25 20:18 Ascorbic Acid 250 Mg Tablet PO 02/28/25 08:59 250 mg BID REYNA Administration Carvedilol 3.125 mg 01/29/25 17:30 02/07/25 07:51 Carvedilol 3.125 Mg Tablet PO 02/28/25 17:29 3.125 mg BIDWM REYNA Administration Dextrose 25 ml 01/20/25 18:39 Dextrose 50%-Water Inj 50 Ml Syringe IV 02/19/25 18:38 Q15MIN PRN BG 50-70 responsive npo pt Dextrose 50 ml 01/20/25 18:39 Dextrose 50%-Water Inj 50 Ml Syringe IV 02/19/25 18:38 Q15MIN PRN BG <50 OR BG <70 & pt unresponsive Docusate Sodium 200 mg 01/24/25 21:00 02/06/25 08:30 Docusate Sod 100 Mg Capsule PO 02/23/25 20:59 Not Given QDAY [facility] Protocol Escitalopram Oxalate 20 mg 01/24/25 16:30 02/06/25 08:33 Escitalopram Oxalate 10 Mg Tablet PO 02/23/25 16:29 20 mg QDAY REYNA Administration Folic Acid 1 mg 01/29/25 09:00 02/06/25 08:33 Folic Acid 1 Mg Tablet PO 02/28/25 08:59 1 mg QDAY REYNA Administration Furosemide 20 mg 02/06/25 09:00 Furosemide 20 Mg Tablet PO 03/08/25 08:59 QDAY REYNA Glucagon 1 mg 01/20/25 18:39 Glucagon Inj 1 Mg Vial IM Q15MIN PRN BG <70, and no IV access Ceftriaxone Sodium/Dextrose 2 gm in 50 mls @ 100 mls/hr 02/06/25 09:00 02/06/25 08:34 Rocephin/D5w 2gm IV 02/12/25 15:56 100 mls/hr QDAY REYNA Administration Magnesium Sulfate 4 gm in 50 mls @ 12.5 mls/hr 02/07/25 06:44 Magnesium Sulfate Ivpb IV 02/07/25 10:43 X1 ONE Insulin Human Lispro 0 unit 02/05/25 17:00 02/07/25 07:50 Insulin Lispro (Admelog) 1 Unit/0.01 Ml Unit SC 02/19/25 20:59 Not Given ACHS REYNA Protocol Lactulose 200 gm 02/02/25 15:30 02/04/25 19:27 Lactulose Syrup 20 Gm/30 Ml Udc DE 03/04/25 15:29 Not Given QDAY [facility] Protocol Levothyroxine Sodium 112 mcg 01/21/25 06:00 02/07/25 05:54 Levothyroxine Sodium 112 Mcg Tablet PO 02/20/25 05:59 112 mcg ACBR REYNA Administration Lidocaine 1 patch 02/06/25 10:30 02/06/25 11:26 Lidocaine 5% 1 Patch TOP 03/08/25 10:29 1 patch DAILY REYNA Administration Protocol Liothyronine Sodium 10 mcg 01/25/25 14:15 02/06/25 08:38 Liothyronine Sod 5 Mcg Tablet PO 02/24/25 14:14 10 mcg QDAY REYNA Administration Loratadine 10 mg 01/21/25 09:00 02/06/25 08:33 Loratadine 10 Mg Tablet PO 02/20/25 08:59 10 mg QDAY RYENA Administration Melatonin 3 mg 02/02/25 21:00 02/05/25 20:13 Melatonin 3 Mg Tablet PO 03/04/25 20:59 3 mg HS REYNA Administration Midodrine 5 mg 02/05/25 14:00 02/07/25 05:48 Midodrine 5 Mg Tablet PO 03/02/25 13:59 Not Given TID REYNA Multivitamins 1 tab 01/29/25 09:00 02/06/25 08:32 Multivitamins Tablet PO 02/28/25 08:59 1 tab QDAY REYNA Administration Ondansetron HCl 4 mg 01/20/25 16:47 01/31/25 21:20 Ondansetron Inj 2 Mg/Ml Inj 2 Ml IVP 02/19/25 16:46 4 mg Q6H PRN Administration NAUSEA OR VOMITING Protocol Pantoprazole Sodium 40 mg 02/03/25 09:30 02/06/25 20:18 Pantoprazole Inj 40 Mg Vial IVP 03/05/25 09:29 40 mg BID REYNA Administration Polyethylene Glycol 17 gm 02/05/25 10:15 02/06/25 08:30 Polyethylene Glycol 17 Gm Packet PO 03/07/25 10:14 Not Given QDAY REYNA Pregabalin 100 mg 02/01/25 21:00 02/05/25 10:01 Pregabalin 50 Mg Capsule PO 03/03/25 20:59 Not Given BID REYNA Rifaximin 550 mg 02/06/25 09:45 02/06/25 20:18 Rifaximin 550 Mg Tablet PO 02/13/25 09:44 550 mg BID REYNA Administration Simethicone 80 mg 02/05/25 12:00 02/07/25 05:54 Simethicone 80 Mg Chew PO 03/07/25 11:59 80 mg QID REYNA Administration Spironolactone 25 mg 01/29/25 10:15 02/06/25 08:32 Spironolactone 25 Mg Tablet PO 02/28/25 10:14 25 mg QDAY REYNA Administration Thiamine HCl 100 mg 01/29/25 09:00 02/06/25 08:32 Thiamine 100 Mg Tablet PO 02/28/25 08:59 100 mg QDAY REYNA Administration Tramadol HCl 50 mg 02/05/25 10:14 02/07/25 05:58 Tramadol Hcl 50 Mg Tablet PO 02/10/25 10:13 50 mg Q6HR PRN Administration Pain 6-10 Plan Assessment: 64 year-old female with PMHx of alcoholic liver cirrhosis, COPD on home O2, hypothyroidism, asthma, HTN, T2DM and anxiety who presented to the ED with worsening ascites and abdominal discomfort. Admitted under observation for therapeutic/diagnostic paracentesis. #Acute hepatic encephalopathy (resolved) #Acute decompensated alcoholic liver cirrhosis #Intractable ascites (improving) #Advanced portal hypertension (stable) #Esophageal varices (stable) #Subacute bacterial peritonitis (resolved) Significant alcohol use history, cirrhosis diagnosed in 08/2023. Has been on SPIRONOLACTONE, presenting with 1 month of worsening abdominal ascites. Abdominal CT showed cirrhosis, significant ascites, prominent splenomegaly, anasarca, esophageal and perigastric varices, no bowel obstruction. MELD score 9 equates to 6% mortality in 3 months. Child-Wilhelm score 7, Class B, indication for transplant evaluation. SAAG < 1.1 g/dL Portal hypertension is not necessarily the cause of ascites MELD-Na Score (01/28/2025) 12 points, <2% mortality estimated 90 day mortality Completed 10 days of CEFTRIAXONE for SBP prophylaxis with the addition of few days of FLUCONAZOLE. Afebrile, no leukocytosis At this point, there is evidence of poor tolerance to LACTULOSE with increased renal distention and recurrent ileus, and overall slowed gut motility. As result, we elected to proceed with MIRALAX to prevent further complications LACTULOSE, including risk for bowel ischemia given aggressive amount of LACTULOSE required to achieve results. Having good bowel movements with MIRALAX. ? Continue MIDODRINE 5 mg TID ? Continue RIFAXIMIN BID ? Continue MIRALAX daily ? Continue CEFTRIAXONE (02/06 to present) ? Continue LASIX 20 mg daily (dose held for today but will resume tomorrow) ? Continue SPIRONOLACTONE 25 mg daily (dose held for today but will resume tomorrow) ? Started CARVEDILOL 3.12 mg BID ? Will consider resuming LACTULOSE after bowel rest ? Encourage oral intake ? Fluid restriction ? Sodium restriction of 2 g/day Possible polypharmacy Hx anxiety She is on multiple anxiolytics. Neurology is following, URSULA showed diffuse slowing c/w hepatic encephalopathy ? Holding home PRIMIDONE, ZOLPIDEM in settings of acute encephalopathy. ? Holding home LEXAPRO daily given acute encepahlopathy ? Continuing Home LYRICA BID Hypothyroidism TSH 2.33 Free T4 1.15 Thyroxine T3 48.2 Free T3 0.8 Patient was taking liothyronine 20 mcg daily but was not started in hospital - Liothyronine 10 mcg daily started today, half of patient's home dose ? Levothyroxine 112 mcg daily Microcytic anemia (stable) Grade 1 esophageal varices Mild thrombocytopenia (resolved) Hgb baseline 11.4. Likely iron deficiency versus cirrhosis. CT showed esophageal and perigastric varices. Reports chronic, recurrent hemorrhoidal bleed, but denies dark stool or upper GI bleed. Had an EGD last year and was abnormal. She is on a 5-year colonoscopy scheduled for colonic polyps, last colonoscopy 5 years ago. B12 and folate WNL. Iron stores are low. EGD showed grade 1 lower third esophageal varices, moderate patchy hemorrhagic characteristic of the gastric antrum. GI recommended outpatient colonoscopy. Hemoglobin stable. ? Transfuse if Hgb less than 8 ? Will need PROPRANOLOL for variceal prophylaxis, if BP can tolerate ? Continue daily oral iron supplements HTN Asymptomatic sinus bradycardia Currently BP soft, normocardic. EKG shows sinus bradycardia, likely cirrhosis related on oral dysfunction versus BETA-BLOCKERS. ? Continue home LEVOTHYROXINE 112 mcg AC BR ? Consider resume home METOPROLOL when able COPD, asthma Chronic respiratory failure, on home 2 L O2 No signs of asthma or COPD exacerbation ? DuoNebs q.6h. PRN ? Will discharge on TRELEGY T2DM A1c 7.7 from 08/2024. ? INSULIN sliding scale ? Accu-Cheks Acute kidney injury -resolved Prerenal 2/2 to hypotention Cr 0.9 Baseline Cr 0.9 ? Holding diuresis for now ? Monitor renal panel ? Renally dose meds, avoid overdiuresis and NEPHROTOXINS Electrolyte abnormalities ? Daily labs, replete as needed Chronic back pain Started LIDOCAINE patches SBO (resolved) Constipation (resolved) Abdominal distention?slowly improving Resolved with GASTROGRAFIN bowel series, continued on MIRALAX as above Health maintenance Diet: Regular diet GI prophylaxis: PROTONIX DVT prophylaxis: HEPARIN subcu Antibiotics: No addition CODE STATUS: Full code Case was discussed with attending physician. Keith Daly DO PGY II This document was transcribed using voice recognition technology. Minor inaccuracies may be present. Attending Provider Attestation/Addendum The patient is I have discussed and was present for the essential components of the history, physical examination, diagnosis, and treatment plan with the resident. I agree with the patient's care as documented by the resident and amended herein by me. Didier Samuel DO. Although this document has been carefully reviewed, there may still be some phonetic and other typographical errors. These errors are purely grammatical due to imperfections in the software program and should not be construed in any way to compromise the substance of the patient's medical care during this visit. Patient seen and evaluated this AM. No acute events overnight, vital signs stable, patient afebrile, labs largely unremarkable. Patient originally admitted on 01/20 for acute decompensated liver failure with significant ascites. She did have a paracentesis on 01/21 however continued to have abdominal pain and renal dysfunction with diuretics. Repeat paracentesis was performed on 02/04, 6500 cc removed and the patient appears to have developed SBP, it was thought the fluid sample on 01/21 was unreliable at that time. Patient subsequently started on ceftriaxone 2g qd, is presently on day 3and is stated above, significantly improved. Will reattempt to introduce lower dose Lasix and spironolactone today and restart the patient's Coreg and see if she can tolerate. Patient can likely be discharged to SNF tomorrow if she continues to improve on ciprofloxacin to complete a 5 to 7-day course of antibiotics for her SBP. Will continue to monitor closely, see resident note above for additional details on chronic issues.
[2025-02-07] MEDS: Magnesium Sulfate 4 GM Ivpb 4 GM/50 ML BAG IV (08:46)
[2025-02-07] MEDS: ESCITALOPRAM OXALATE 10 MG TABLET 20 MG PO (08:47)
[2025-02-07] MEDS: POLYETHYLENE GLYCOL 17 GM PACKET PO (08:47)
[2025-02-07] MEDS: MULTIVITAMINS TABLET 1 TAB PO (08:48)
[2025-02-07] MEDS: FOLIC ACID 1 MG TABLET PO (08:48)
[2025-02-07] MEDS: ASCORBIC ACID 250 MG TABLET PO ×2 (08:48→21:40)
[2025-02-07] MEDS: DOCUSATE SOD 100 MG CAPSULE 200 MG PO (08:48)
[2025-02-07] MEDS: cefTRIAXone/D5w 2gm 2 GM/50 ML BAG IV (08:49)
[2025-02-07] MEDS: LIDOCAINE 5% 1 PATCH TOP ×2 (08:49→09:12)
[2025-02-07] MEDS: THIAMINE 100 MG TABLET PO (08:50)
[2025-02-07] MEDS: LIOTHYRONINE SOD 5 mCg TABLET 10 MCG PO (08:58)
[2025-02-07] MEDS: MIDODRINE 5 MG TABLET PO (09:11)
[2025-02-07] MEDS: INSULIN LISPRO (AdmeLOG) 1 UNIT/0.01 ML UNIT SC ×2 (12:05→21:41)
--- NOTE | 2025-02-07 19:11 | ESPR_ITS ---
Documentation for date of: 02/07/25 Subjective Subjective Interval history: Patient evaluated Alert and oriented Having bowel movements Exam Vital Signs Temp Pulse Resp BP Pulse Ox O2 Del Method O2 Flow Rate 97.3 F 98 16 106/62 94 L Room Air 1 02/07/25 15:35 02/07/25 16:00 02/07/25 15:35 02/07/25 15:35 02/07/25 15:35 02/07/25 15:35 02/07/25 11:53 Objective Labs 02/07/25 05:18 02/07/25 05:18 Labs: Laboratory Results - last 24 hr 02/07/25 05:18 WBC 9.2 RBC 4.06 Hgb 10.1 L Hct 32.6 L MCV 80 MCH 24.9 L MCHC 31.0 RDW Std Deviation 54.8 H Plt Count 299 Neut % (Auto) 75 Lymph % (Auto) 15 [place] % (Auto) 5 Eos % (Auto) 3 Baso % (Auto) 1 Neut # (Auto) 6.9 Lymph # (Auto) 1.3 [place] # (Auto) 0.5 Eos # (Auto) 0.3 Baso # (Auto) 0.1 Immature Gran # (Auto) 0.04 H Absolute Nucleated RBC 0.00 Immature Gran % 0 Nucleated RBC % 0 Sodium 145 Potassium 4.2 Chloride 106 Carbon Dioxide 27.0 Anion Gap 12 BUN 12 Creatinine 0.7 Estim Creat Clear Calc 82.6 eGFR > 60 BUN/Creatinine Ratio 17 Glucose 141 H Calculated Osmolality 290 Calcium 9.7 Corrected Calcium 9.7 Phosphorus 3.6 Magnesium 1.2 L Total Bilirubin 0.6 AST 26 ALT 11 Alkaline Phosphatase 205 H Total Protein 7.0 Albumin 4.0 Globulin 3.0 Albumin/Globulin Ratio 1.3 Impressions Impression: Hepatic encephalopathy Cirrhotic liver disease secondary to alcohol with intractable ascites due to underlying advanced portal hypertension Continue current management ABG Interpretation ABG results: 01/26/25 05:17 VBG pH 7.43 VBG pCO2 37 VBG pO2 59 H VBG Base Excess 0 Assessment & Plan A&P Narrative # Decompensated alcoholic liver disease with advanced portal hypertension esophageal varices and intractable ascites Plan Agree with the IV Lasix Agree with IV albumin Add spironolactone 25 mg p.o. twice daily Scheduled for therapeutic paracentesis Monitor renal function closely Consent obtained for fiberoptic esophagogastroduodenoscopy with possible biopsy possible therapeutic intervention for prophylactic band ligation of the esophageal varices Agree with IV ceftriaxone for the possibility of subacute bacterial peritonitis Will follow the patient Other medical problems include COPD on home oxygen 2 L nasal cannula Essential hypertension Hypothyroidism Hyperlipidemia Thank you very much for the opportunity to participate in care of this patient Time Spent With Patient Time: Total time spent is greater than 50% in coordination of care (as documented) at patient's floor/unit and/or counseling patient:
--- NOTE | 2025-02-07 19:11 | PD.ADDCONS ---
Addendum Consultation Addendum Date of report being addended: 02/07/25 Narrative: No additional information on this particular note
--- NOTE | 2025-02-07 19:25 | PD.VPROG1 ---
Telemedicine visit statement This visit was conducted with the use of phone was obtained on 02/07/25 at 1925. Documentation for date of: 02/07/25 Subjective Subjective Interval history: Patient is in telemetry. Continues to have abdominal pain, but distention is better after the recent tap, tolerating diet being advanced. Virtual exam Vital Signs Temp Pulse Resp BP Pulse Ox O2 Del Method O2 Flow Rate 97.3 F 98 16 106/62 94 L Room Air 1 02/07/25 15:35 02/07/25 16:00 02/07/25 15:35 02/07/25 15:35 02/07/25 15:35 02/07/25 15:35 02/07/25 11:53 Objective Labs 02/08/25 05:37 02/08/25 05:37 Labs: Laboratory Results - last 24 hr 02/07/25 05:18 WBC 9.2 RBC 4.06 Hgb 10.1 L Hct 32.6 L MCV 80 MCH 24.9 L MCHC 31.0 RDW Std Deviation 54.8 H Plt Count 299 Neut % (Auto) 75 Lymph % (Auto) 15 [place] % (Auto) 5 Eos % (Auto) 3 Baso % (Auto) 1 Neut # (Auto) 6.9 Lymph # (Auto) 1.3 [place] # (Auto) 0.5 Eos # (Auto) 0.3 Baso # (Auto) 0.1 Immature Gran # (Auto) 0.04 H Absolute Nucleated RBC 0.00 Immature Gran % 0 Nucleated RBC % 0 Sodium 145 Potassium 4.2 Chloride 106 Carbon Dioxide 27.0 Anion Gap 12 BUN 12 Creatinine 0.7 Estim Creat Clear Calc 82.6 eGFR > 60 BUN/Creatinine Ratio 17 Glucose 141 H Calculated Osmolality 290 Calcium 9.7 Corrected Calcium 9.7 Phosphorus 3.6 Magnesium 1.2 L Total Bilirubin 0.6 AST 26 ALT 11 Alkaline Phosphatase 205 H Total Protein 7.0 Albumin 4.0 Globulin 3.0 Albumin/Globulin Ratio 1.3 ABG Interpretation ABG results: 01/26/25 05:17 VBG pH 7.43 VBG pCO2 37 VBG pO2 59 H VBG Base Excess 0 Assessment & Plan Problem List (1) Hepatic encephalopathy: Status: Acute Assessment and plan: from decompensated liver cirrhosis mental status changes resolved. Will continue to monitor her mental status closely/GI bleeding s/p variceal ligation Restrict usage of narcotics even though she asks for it for pain control as it can lead to changes with worsening mental status changes and constipation Continue with Lexapro (2) Ascites: Status: Chronic Assessment and plan: s/p recent paracentesis
[2025-02-07] MEDS: HEPARIN SOD INJ 5000 UNIT/ML VIAL SC (21:41)
[2025-02-07] MEDS: ZOLPIDEM 5 MG TABLET PO (22:36)
[2025-02-08] VITALS (13 sets, daily range): BP systolic 116–133; BP diastolic 61–83; PULSE 75–123; RESP 14–96; TEMP 36.1–37; O2SAT 93–98
[2025-02-08] MEDS: SIMETHICONE 80 MG CHEW PO ×4 (05:23→20:53)
[2025-02-08] MEDS: LEVOTHYROXINE SODIUM 112 MCG TABLET PO (05:23)
[2025-02-08 06:09] LABS: Basophils # (Auto) 0.2 Thou/mm3 (0.0-0.2); Basophils % (Auto) 2 % (0-2.5); Eosinophils # (Auto) 0.3 Thou/mm3 (0.0-0.5); Eosinophils % (Auto) 4 % (0-10); Hematocrit 31.2 % (36.0-46.0); Hemoglobin 9.7 g/dL (12.0-16.0); Immature Granulocytes Auto 0.05 Thou/mm3 (0.00-0.00); Lymphocytes # (Auto) 1.3 Thou/mm3 (1.0-4.8); Lymphocytes % (Auto) 15 % (10-50); Mean Corpuscular HGB Conc 31.1 g/dl (31.0-37.0); Mean Corpuscular Hemoglobin 24.9 pg (25.0-35.0); Mean Corpuscular Volume 80 fL (80-100); Monocytes # (Auto) 0.6 Thou/mm3 (0.0-0.8); Monocytes % (Auto) 7 % (0-12); Neutrophils # (Auto) 6.1 Thou/mm3 (1.8-7.7); Neutrophils % (Auto) 72 % (37-80); Nucleated Red Blood Cell # 0.00 Thou/mm3 (0.00-0.00); Nucleated Red Blood Cell % 0 /100 WBC (0); Platelet Count 277 Thou/mm3 (140-440); RDW Standard Deviation 57.7 fL (36.4-46.3); Red Blood Count 3.90 Miln/mm3 (4.00-5.20); White Blood Count 8.4 Thou/mm3 (3.6-11.0)
[2025-02-08 06:32] LABS: Alanine Aminotransferase 10 U/L (10-49); Albumin, Serum 3.7 gm/dL (3.4-4.8); Albumin/Globulin Ratio 1.3 (1.2-2.2); Alkaline Phosphatase 188 U/L (46-116); Anion Gap 7 (7-16); Aspartate Amino Transferase 23 U/L (0-34); BUN/Creatinine Ratio 20 Ratio (12-20); Bilirubin,Total 0.5 mg/dL (0.3-1.2); Blood Urea Nitrogen 16 mg/dL (9-23); Calcium 9.4 mg/dL (8.3-10.6); Calcium (Corrected) 9.6 mg/dL (8.5-10.1); Carbon Dioxide 27.7 mMol/L (20.0-31.0); Chloride 106 mMol/L (98-107); Creatinine (Component) 0.8 mg/dL (0.6-1.3); Estimated Creatinine Clearance 72.2 mL/min (>60); Globulin 2.8 gm/dL (2.3-3.5); Glucose 148 mg/dL (74-106); Magnesium 1.5 mg/dL (1.6-2.6); Osmolality,Calculated 285 (275-295); Phosphorous 3.5 mg/dL (2.4-5.1); Potassium 4.2 mMol/L (3.4-5.1); Sodium 141 mMol/L (136-145); Total Protein 6.5 gm/dL (5.7-8.2); eGFR > 60 See Note
[2025-02-08] MEDS: POLYETHYLENE GLYCOL 17 GM PACKET PO (08:39)
[2025-02-08] MEDS: cefTRIAXone/D5w 2gm 2 GM/50 ML BAG IV (08:40)
[2025-02-08] MEDS: DOCUSATE SOD 100 MG CAPSULE 200 MG PO (08:46)
[2025-02-08] MEDS: SPIRONOLACTONE 25 MG TABLET PO (08:47)
[2025-02-08] MEDS: MULTIVITAMINS TABLET 1 TAB PO (08:47)
[2025-02-08] MEDS: THIAMINE 100 MG TABLET PO (08:48)
[2025-02-08] MEDS: ESCITALOPRAM OXALATE 10 MG TABLET 20 MG PO (08:48)
[2025-02-08] MEDS: HEPARIN SOD INJ 5000 UNIT/ML VIAL SC ×2 (08:48→20:58)
[2025-02-08] MEDS: FOLIC ACID 1 MG TABLET PO (08:48)
[2025-02-08] MEDS: ASCORBIC ACID 250 MG TABLET PO ×2 (08:48→20:53)
[2025-02-08] MEDS: LIDOCAINE 5% 1 PATCH TOP (08:57)
--- NOTE | 2025-02-08 09:18 | PC.SS ---
Addendum entered by Marizol Adan 02/08/25 16:15: Update: Accepting facility is [facility]. SS updated patient and family earlier today. SS spoke to admissions team and called insurance co. all clinicals have been sent and are under review. Possible auth for tomorrow. Addendum entered by Marizol Adan 02/08/25 11:28: SS received a call back and the rehab of [place] no longer has a bed for patient. SS re-submitted inquiry to all [place] facilities and provided upate to family. Original Note: Follow up note: SS spoke to physician team and patient is medically stable and ready for d/c. SS submitted updated clinicals on [facility] to rehab facility. SS asked them to re-submit for auth.
[2025-02-08] MEDS: LIOTHYRONINE SOD 5 mCg TABLET 10 MCG PO (10:01)
[2025-02-08 11:03] LABS: Phosphorous 3.4 mg/dL (2.4-5.1)
[2025-02-08] MEDS: INSULIN LISPRO (AdmeLOG) 1 UNIT/0.01 ML UNIT SC ×2 (12:08→20:58)
[2025-02-08] MEDS: HYDROcodone/APAP 5/325 TABLET 1 TAB PO ×2 (12:12→18:40)
[2025-02-08] MEDS: Magnesium Sulfate 4 GM Ivpb 4 GM/50 ML BAG IV (12:14)
--- NOTE | 2025-02-08 13:34 | ESDS_ITS ---
Planned Discharge Date 02/08/25 DS: Providers Provider Date of admission: 01/21/25 11:03 Primary care physician: Hima Musa MD Admitting Provider: Brandon Sawyer MD Attending Provider on Admission: Salvador Sim MD Consults: 01/20/25 17:49 Consult to Gastroenterology Routine Comment: Consulting Provider: Mark Nagy 01/22/25 09:03 Referral Physical Therapy Routine Comment: Physician Instructions: 01/24/25 11:40 Consult to Neurology / Tele-Neurology Routine Comment: Recurrent episode of AMS, shakes, r/o seizure Consulting Provider: Hemal Fall 01/24/25 12:40 Consult to Cardiology Routine Comment: Cirrhosis, hypotension Consulting Provider: Erin Tomas 01/24/25 16:24 Consult to Nephrology Routine Comment: Consulting Provider: Ayanna Mckeon 01/26/25 10:09 Consult to General Surgery Routine Comment: concern for sbo Consulting Provider: Jasmin Bradley 01/27/25 14:25 Referral - Home School Liaison Officer Routine Service Needed for Transfer: HEPATOLOGY Addl Comments:: Decompensated liver cirrhosis with worsening hepatic encephaloopathy despite aggressive management. 01/27/25 15:48 Referral Registered Dietitian Routine Comment: Trickle feeds thru [facility] 01/27/25 16:41 Referral Wound Care Routine Comment: 01/28/25 13:19 Referral Physical Therapy Routine Comment: Please re-eval Physician Instructions: Instructions: PT had significant decline since last eval Attending Provider on DC: Medhat Jackman MD Discharging Provider: Medhat Jackman MD DS: Diagnosis Problem List Completed Was Problem List Reviewed/Reconciled?: Yes Hospital Course Hospital Course Hospital course: This is a pleasant 64 year-old female with PMHx of alcoholic liver cirrhosis, COPD on home O2, hypothyroidism, asthma, HTN, T2DM admitted for decompensated liver cirrhosis with hepatic encephalopathy and significant ascites requiring paracentesis. Hospital course was complicated by persistent hepatic encephalopathy difficulty eliminating bowel, poor tolerance to LACTULOSE, and episode of SBO requiring GASTROGRAFIN study. However, hepatic encephalopathy gradually improved with regular bowel movements, and will continue on rifaximin prophylaxis. She was treated for an SBP with some ANTIBIOTICS, and will continue on outpatient oral ANTIBIOTICS. She has poor tolerance to IV diuresis despite daily ALBUMIN infusions and MIDODRINE, resulting in DONNA and short episode of lactic acidosis which has resolved. As such, she will be discharged with minimal diuresis with the addition of CARVEDILOL which she is currently tolerating. Recommended close follow-up with PCP to adjust diuresis as needed. Additionally, she was on several ANXIOLYTIC medications which likely inappropria te for her condition, and concerning for polypharmacy, resulting in worsening mentation. Some of these medications were discontinued with the help of neurology on board, other medications were changed as listed below. With history of hypothyroidism, on LEVOTHYROXINE and liothyronine 20 mg daily which is a very high dose. Her thyroid function did show low L3. We resumed LEVOTHYROXINE and liothyronine at half the dose as listed below. We recommended close follow-up with endocrinology for management of thyroid medications. Discharge Instructions: * Follow-up with PCP within 1-2 weeks of discharge. You may see one of the residents at the [facility] at the address below. Please call the provided phone number to make an appointment. * Things to discuss with your PCP include: liver transplant, possible need for recurrent parenthesis, management of DIURETICS for cirrhosis, ANTIBIOTICS and maintaining regular bowel movements to preventing recurrent hepatic encephalopathy, pain control, and sleep medication, hepatitis A and hepatitis B vaccine, and thyroid medications. [facility] [address], [place] [address] * Follow-up with neurology, Dr. Hoyos, within 1-2 weeks of discharge. * Please make a week log of daily blood pressure and heart rate and bring to your PCP on your next visit. * Return to Emergency Room if symptoms persist, worsen, or new symptoms develop. Medications Instructions: STOP taking the following medications: * OZEMPIC injections which can increase the risk of constipation. * LUBIPROSTONE 24 mg. * LYRICA 150 mg twice daily. * CLONIDINE twice daily. * IBUPROFEN 600 mg daily (this medication can cause stomach irritation and increases the risk of GI bleed if taking excessively). * PRIMIDONE 250 mg daily. * QVAR 40 mcg aerosol inhaler (we replace this medication with TRELEGY inhaler as above). * STIOLTO RESPIMAT aerosol inhaler (we replace this medication with TRELEGY inhaler as above). * TRAMADOL 50 mg twice daily. * SPIRONOLACTONE 50 mg twice daily (DOSE CHANGED). CONTINUE taking the following NEW medications: * CIPROFLOXACIN twice daily for 5 more days * DOCUSATE 100 mg daily and MIRALAX 17 g daily, you may add LACTULOSE 15 mg up to 4 times daily to maintain an average of 4 bowel movements daily to prevent recurrent hepatic encephalopathy. * RIFAXIMIN 550 mg twice daily. * LASIX/FUROSEMIDE 20 mg daily. * SPIRONOLACTONE 25 mg daily. * CARVEDILOL 3.125 mg twice daily. * MIDODRINE 5 mg 3 times daily. * TRELEGY inhaler once daily for shortness of breath. * ALBUTEROL rescue inhaler as needed for shortness of breath, up to twice daily. * LIDOCAINE patches, applied once daily as needed for back pain. * LIOTHYRONINE 10 mg daily (DOSE CHANGED). * SIMETHICONE 80 mg 4 times daily as needed for abdominal distention. * THIAMINE 100 mg daily. * GABAPENTIN 200 mg two times daily for pain. * NORCO 5 every 6 hours for severe pain. CONTINUE taking the following HOME medications: * LEVOTHYROXINE 112 mcg daily. * AMBIEN 5 mg once at night as needed for insomnia. * LEXAPRO 20 mg daily. * JARDIANCE 10 mg daily. * METOCLOPRAMIDE 10 mg 3 times daily as needed for nausea or constipation. * OMEPRAZOLE 20 mg daily. Admission Diagnosis Acute hepatic encephalopathy (resolved) Acute decompensated alcoholic liver cirrhosis Intractable ascites (improving) Advanced portal hypertension (stable) Esophageal varices (stable) Subacute bacterial peritonitis (resolved) Possible polypharmacy Hx anxiety Hypothyroidism Microcytic anemia (stable) Grade 1 esophageal varices Mild thrombocytopenia (resolved) HTN Asymptomatic sinus bradycardia COPD, asthma Chronic respiratory failure, on home 2 L O2 T2DM Acute kidney injury -resolved Prerenal 2/2 to hypotention Electrolyte abnormalities Chronic back pain SBO (resolved) Constipation (resolved) Abdominal distention?slowly improving Case was discussed with attending physician. Keith Daly DO PGY II This document was transcribed using voice recognition technology. Minor inaccuracies may be present. Time Spent with Patient Time attestation: Total time spent providing and/or coordinating discharge services: Time spent: Greater than 30 minutes Exam Vital Signs Temp Pulse Resp BP Pulse Ox O2 Del Method O2 Flow Rate 96.9 F 80 16 116/61 97 Room Air 1 02/08/25 12:02/08/25 12:02/08/25 12:02/08/25 12:02/08/25 12:02/08/25 12:02/07/25 11:53 Narrative Exam GENERAL Normal appearing adult female, NAD. HEENT NCAT. GEOVANNI. Oral mucosa is moist. Patent Nares NECK Supple, nontender, no JVD. CHEST RRR, no m/g/r, bilateral inspiratory crackles,no work of breathing, sy mmetrical expansion. ABDOMEN Soft, minimal abdominal distention and tenderness. No guarding/rebound tenderness/masses. Bowel sounds presents EXTREMITIES No edema/cyanosis. SKIN Warm and dry, no jaundice/rashes. Slightly pale. NEUROMUSCULAR Asterixis bilaterally of upper extremities. Moves all 4 extremities slowly, with full ROM. No focal neurologic deficits. PSYCHIATRY Normal mood and affect, cooperative, no hallucinations Discharge Plan Plan Patient condition on transfer: Stable Care Plan Goals: Instructions: * Follow-up with PCP within 1-2 weeks of discharge. You may see one of the residents at the [facility] at the address below. Please call the provided phone number to make an appointment. * Things to discuss with your PCP include: liver transplant, possible need for recurrent parenthesis, management of DIURETICS for cirrhosis, ANTIBIOTICS and maintaining regular bowel movements to preventing recurrent hepatic encephalopathy, pain control, and sleep medication, hepatitis A and hepatitis B vaccine, and thyroid medications. [facility] [address], [place] [address] * Follow-up with neurology, Dr. Hoyos, within 1-2 weeks of discharge. * Please make a week log of daily blood pressure and heart rate and bring to your PCP on your next visit. * Return to Emergency Room if symptoms persist, worsen, or new symptoms develop. Medications Instructions: STOP taking the following medications: * OZEMPIC injections which can increase the risk of constipation. * LUBIPROSTONE 24 mg. * LYRICA 150 mg twice daily. * CLONIDINE twice daily. * IBUPROFEN 600 mg daily (this medication can cause stomach irritation and increases the risk of GI bleed if taking excessively). * PRIMIDONE 250 mg daily. * QVAR 40 mcg aerosol inhaler (we replace this medication with TRELEGY inhaler as above). * STIOLTO RESPIMAT aerosol inhaler (we replace this medication with TRELEGY i nhaler as above). * TRAMADOL 50 mg twice daily. * SPIRONOLACTONE 50 mg twice daily (DOSE CHANGED). CONTINUE taking the following NEW medications: * CIPROFLOXACIN twice daily for 5 more days * DOCUSATE 100 mg daily and MIRALAX 17 g daily, you may add LACTULOSE 15 mg up to 4 times daily to maintain an average of 4 bowel movements daily to prevent recurrent hepatic encephalopathy. * RIFAXIMIN 550 mg twice daily. * LASIX/FUROSEMIDE 20 mg daily. * SPIRONOLACTONE 25 mg daily. * CARVEDILOL 3.125 mg twice daily. * MIDODRINE 5 mg 3 times daily. * TRELEGY inhaler once daily for shortness of breath. * ALBUTEROL rescue inhaler as needed for shortness of breath, up to twice daily. * LIDOCAINE patches, applied once daily as needed for back pain. * LIOTHYRONINE 10 mg daily (DOSE CHANGED). * SIMETHICONE 80 mg 4 times daily as needed for abdominal distention. * THIAMINE 100 mg daily. * GABAPENTIN 200 mg two times daily for pain. * NORCO 5 every 6 hours for severe pain. CONTINUE taking the following HOME medications: * LEVOTHYROXINE 112 mcg daily. * AMBIEN 5 mg once at night as needed for insomnia. * LEXAPRO 20 mg daily. * JARDIANCE 10 mg daily. * METOCLOPRAMIDE 10 mg 3 times daily as needed for nausea or constipation. * OMEPRAZOLE 20 mg daily. Prescriptions/Referrals Prescriptions/Med Rec: [place] Ellipta 100-62.5-25 mcg blister with device 1 inh inhalation QDAY Qty: 60 0RF furosemide [Lasix] 20 mg tablet 20 mg PO QDAY 30 Days Qty: 30 0RF Rx Instructions: Take one tablet by mouth every day lidocaine 5 % Adhesive Patch,Medicated 1 patch top DAILY Qty: 60 0RF docusate sodium 100 mg Capsule 200 mg PO QDAY Qty: 30 0RF Xifaxan 550 mg Tablet 550 mg PO BID Qty: 60 0RF spironolactone 25 mg Tablet 25 mg PO QDAY Qty: 30 0RF simethicone 80 mg Tablet,Chewable 80 mg PO QID PRN (Reason: Abdominal Distention) Qty: 120 0RF midodrine 5 mg Tablet 5 mg PO TID Qty: 90 0RF melatonin 3 mg Tablet 6 mg PO HS Qty: 60 0RF liothyronine 5 mcg Tablet 10 mcg PO QDAY Qty: 30 0RF polyethylene glycol 3350 [Miralax] 17 gram/dose powder 4 g PO QDAY Qty: 850 3RF ciprofloxacin HCl 500 mg tablet 500 mg PO BID 4 Days Qty: 8 0RF carvedilol 3.125 mg Tablet 3.125 mg PO BIDWM Qty: 60 0RF albuterol sulfate 90 mcg/actuation HFA aerosol inhaler 1 inh inhalation BID Qty: 6.7 0RF lidocaine 5 % adhesive patch,medicated 1 patch topical QDAY Qty: 30 0RF Rx Instructions: leave on most painful area for up to 12 hrs zolpidem 5 mg Tablet 5 mg PO HS PRN (Reason: Insomnia) Qty: 30 0RF thiamine mononitrate (vit B1) 100 mg Tablet 100 mg PO QDAY Qty: 30 0RF hydrocodone-acetaminophen 5-325 mg tablet 1 tab PO Q6H MDD 4 tablets in one day PRN (Reason: breakthrough pain or pain 7-10 ) 3 Days Qty: 12 0RF Rx Instructions: Take one tablet by mouth up to four times a day as needed for pain gabapentin 100 mg capsule 200 mg PO BID 30 Days Qty: 120 0RF Rx Instructions: Take two capsules by mouth twice a day Continued escitalopram oxalate [Lexapro] 20 mg tablet 20 mg PO QDAY levothyroxine 112 mcg Capsule 112 mcg PO QDAY metoclopramide HCl 10 mg Tablet 1 mg PO TID Jardiance 10 mg Tablet 1 mg PO DAILY omeprazole 20 mg capsule,delayed release(DR/EC) 20 mg PO BID insulin lispro 100 unit/mL insulin pen 1 sliding scale dose SUBCUT PRN Patient Comments: INJECT UNITS SUBCUTANEOUSLY PER sliding scale WITH meals FOR DIABETES (blood sugar 150-200=5 UNITS, 201-250= 10u,251-300= 15 u,>300=20 Discontinued pregabalin [Lyrica] 150 MG capsule 150 mg PO BID Qty: 0 latanoprost 0.005 % Drops 1 drp OPHTHALMIC (EYE) QPM Rx Instructions: each eye tramadol 50 mg Tablet 50 mg PO BID primidone 250 mg Tablet 250 mg PO QDAY Rx Instructions: takes 1/2 tab at bedtime albuterol sulfate [Ventolin HFA] 90 mcg/actuation Hfa Aerosol Inhaler 2 puff INHALATION Q4H PRN (Reason: Shortness Of Breath) clonidine HCl 0.1 mg tablet 1 tab PO BID Patient Comments: TAKE ONE TABLET BY MOUTH TWICE DAILY IF BLOOD PRESSURE IS 150/80 metoprolol succinate 50 mg tablet extended release 24 hr 1.5 tab PO QDAY Patient Comments: TAKE 1 AND 1/2 TABLETS BY MOUTH EVERY DAY WITH FOOD metformin 1,000 mg tablet 1,000 mg PO BID liothyronine 5 mcg Tablet 20 mcg PO QDAY zolpidem 5 mg Tablet 5 mg PO QHSPRN primidone 50 mg Tablet 1 mg PO DAILY fluticasone propionate 110 mcg/actuation Hfa Aerosol Inhaler 1 inh INHALATION BID Stiolto Respimat 2.5-2.5 mcg/actuation Mist 2 puff INHALATION DAILY Ozempic 1 mg/dose (4 mg/3 mL) Pen Injector 1 mg subcut QWEEK Rx Instructions: 1 mg subcutaneously ibuprofen 600 mg tablet 600 mg PO Q6H PRN (Reason: pain) Qty: 60 0RF spironolactone 50 mg tablet 50 mg PO BID Patient Comments: TAKE ONE TABLET BY MOUTH EVERY MORNING lubiprostone 24 mcg capsule 24 mcg PO PRN PRN (Reason: constipation) Patient Comments: TAKE ONE CAPSULE BY MOUTH TWICE DAILY FOR CONSTIPATION Qvar RediHaler 40 mcg/actuation HFA aerosol breath activated 2 inh INHALATION BID aspirin 81 mg capsule 81 mg PO QDAY Referrals: [facility]ima Musa[facility]MD [Primary Care Provider] - Patient/Caregiver Discharge Instructions Education Materials: Paracentesis Dc Print Language: Omani Discharge Order Discharge Orders: Discharge (Routine); Ordered 02/08/25 Ordered By: Ainsley Valdez Quality Discharge Quality Measures VTE prophylaxis Attestestation Attestation Patient seen and examined during rounds with IM residents. She has abdominal distention but no pain. She is very alert now. Planning to discharge soon. Continue current treatment.
--- NOTE | 2025-02-08 20:02 | PD.IMPROG ---
Documentation for date of: 02/08/25 Subjective Subjective Interval history: Doing pretty well passing flatus Discharge planning in progress Exam Vital Signs Temp Pulse Resp BP Pulse Ox O2 Del Method O2 Flow Rate 98.6 F 110 H 16 133/71 H 95 Room Air 1 02/08/25 16:00 02/08/25 17:07 02/08/25 16:00 02/08/25 17:07 02/08/25 16:00 02/08/25 16:00 02/07/25 11:53 Objective Labs 02/08/25 05:37 02/08/25 05:37 Labs: Laboratory Results - last 24 hr 02/08/25 02/08/25 05:37 10:20 WBC 8.4 RBC 3.90 L Hgb 9.7 L Hct 31.2 L MCV 80 MCH 24.9 L MCHC 31.1 RDW Std Deviation 57.7 H Plt Count 277 Neut % (Auto) 72 Lymph % (Auto) 15 [place] % (Auto) 7 Eos % (Auto) 4 Baso % (Auto) 2 Neut # (Auto) 6.1 Lymph # (Auto) 1.3 [place] # (Auto) 0.6 Eos # (Auto) 0.3 Baso # (Auto) 0.2 Immature Gran # (Auto) 0.05 H Absolute Nucleated RBC 0.00 Immature Gran % 1 H Nucleated RBC % 0 Sodium 141 Potassium 4.2 Chloride 106 Carbon Dioxide 27.7 Anion Gap 7 BUN 16 Creatinine 0.8 Estim Creat Clear Calc 72.2 eGFR > 60 BUN/Creatinine Ratio 20 Glucose 148 H Calculated Osmolality 285 Calcium 9.4 Corrected Calcium 9.6 Phosphorus 3.5 3.4 Magnesium 1.5 L Total Bilirubin 0.5 AST 23 ALT 10 Alkaline Phosphatase 188 H Total Protein 6.5 Albumin 3.7 Globulin 2.8 Albumin/Globulin Ratio 1.3 Impressions Impression: Chronic liver disease secondary to alcohol Advanced portal hypertension with ascites requiring large-volume paracentesis Ileus resolved Agree with discharge planning ABG Interpretation ABG results: 01/26/25 05:17 VBG pH 7.43 VBG pCO2 37 VBG pO2 59 H VBG Base Excess 0 Assessment & Plan A&P Narrative # Decompensated alcoholic liver disease with advanced portal hypertension esophageal varices and intractable ascites Plan Agree with the IV Lasix Agree with IV albumin Add spironolactone 25 mg p.o. twice daily Scheduled for therapeutic paracentesis Monitor renal function closely Consent obtained for fiberoptic esophagogastroduodenoscopy with possible biopsy possible therapeutic intervention for prophylactic band ligation of the esophageal varices Agree with IV ceftriaxone for the possibility of subacute bacterial peritonitis Will follow the patient Other medical problems include COPD on home oxygen 2 L nasal cannula Essential hypertension Hypothyroidism Hyperlipidemia Thank you very much for the opportunity to participate in care of this patient Time Spent With Patient Time: Total time spent is greater than 50% in coordination of care (as documented) at patient's floor/unit and/or counseling patient:
[2025-02-08] MEDS: ZOLPIDEM 5 MG TABLET PO (20:53)
[2025-02-09] VITALS (11 sets, daily range): BP systolic 109–148; BP diastolic 63–78; PULSE 80–115; RESP 10–95; TEMP 36.1–37; O2SAT 92–97; BMI 13.0
[2025-02-09] MEDS: HYDROcodone/APAP 5/325 TABLET 1 TAB PO ×3 (00:39→12:56)
--- NOTE | 2025-02-09 01:55 | PD.NEUROPROG ---
Documentation for date of: 02/08/25 Subjective Subjective Interval history: Patient was seen in telemetry today. She feels much better, tolerating oral diet. Some abdominal discomfort still there. Exam - Neurology Vital Signs Temp Pulse Resp BP Pulse Ox O2 Del Method O2 Flow Rate 97.4 F 82 16 139/71 H 92 L Room Air 1 02/09/25 00:00 02/09/25 00:00 02/09/25 00:00 02/09/25 00:00 02/09/25 00:00 02/09/25 00:00 02/07/25 11:53 Narrative Exam GENERAL APPEARANCE: Well hydrated, well-nourished in no acute distress. HEENT: Normocephalic, atraumatic, extraocular movements intact. Pupils: Equal reacting to light and accommodation NECK: Supple, no JVD or bruits. CARDIOVASULAR: Heart: S1, S2 heard, regular without S3-S4 or murmur no rubs or gallops. LUNGS/CHEST: Clear to auscultation bilaterally. No rails, rhonchi, or wheezing. Normal inspection. ABDOMEN: Distended with ascites EXTREMITIES: Normal inspection and palpation. No edema, clubbing or cyanosis. SKIN: Warm and dry without rashes. Normal inspection. MUSCULOSKELETAL: No cervical, thoracic, lumbar or midline bony tenderness. Normal inspection. NEURO: Alert, awake and oriented x3. Cranial nerves: II through XII grossly intact. Speech and language: Normal with no dysarthria or dysphasia. Motor system: Tone and bulk: Normal: Strength: 5 out of 5 in all 4 extremities; No pronator drift noted. Deep tendon reflexes: 2+ bilaterally symmetrical. Plantar reflex: Downgoing bilaterally. Sensory system: Intact to all modalities of sensation bilaterally. Coordination: Intact to [id number] and [id number]-[id number] test bilaterally. No ataxia, no dysmetria, or dysdiadochokinesia noted. No intention tremors noted. Gait: walks in the room with a walker. No signs of meningeal irritation noted. PSYCHIATRIC: Normal mood and affect. Objective Labs 02/08/25 05:37 02/08/25 05:37 Labs: Laboratory Results - last 24 hr 02/08/25 02/08/25 05:37 10:20 WBC 8.4 RBC 3.90 L Hgb 9.7 L Hct 31.2 L MCV 80 MCH 24.9 L MCHC 31.1 RDW Std Deviation 57.7 H Plt Count 277 Neut % (Auto) 72 Lymph % (Auto) 15 [place] % (Auto) 7 Eos % (Auto) 4 Baso % (Auto) 2 Neut # (Auto) 6.1 Lymph # (Auto) 1.3 [place] # (Auto) 0.6 Eos # (Auto) 0.3 Baso # (Auto) 0.2 Immature Gran # (Auto) 0.05 H Absolute Nucleated RBC 0.00 Immature Gran % 1 H Nucleated RBC % 0 Sodium 141 Potassium 4.2 Chloride 106 Carbon Dioxide 27.7 Anion Gap 7 BUN 16 Creatinine 0.8 Estim Creat Clear Calc 72.2 eGFR > 60 BUN/Creatinine Ratio 20 Glucose 148 H Calculated Osmolality 285 Calcium 9.4 Corrected Calcium 9.6 Phosphorus 3.5 3.4 Magnesium 1.5 L Total Bilirubin 0.5 AST 23 ALT 10 Alkaline Phosphatase 188 H Total Protein 6.5 Albumin 3.7 Globulin 2.8 Albumin/Globulin Ratio 1.3 ABG Interpretation ABG results: 01/26/25 05:17 VBG pH 7.43 VBG pCO2 37 VBG pO2 59 H VBG Base Excess 0 Assessment & Plan Assessment and plan (1) Hepatic encephalopathy: Status: Resolved (2) Ascites: Status: Chronic Assessment and plan: s/p paracentesis continue with diuretics.
[2025-02-09] MEDS: SIMETHICONE 80 MG CHEW PO ×2 (06:02→11:38)
[2025-02-09] MEDS: LEVOTHYROXINE SODIUM 112 MCG TABLET PO (06:02)
[2025-02-09 06:06] LABS: Basophils # (Auto) 0.1 Thou/mm3 (0.0-0.2); Basophils % (Auto) 2 % (0-2.5); Eosinophils # (Auto) 0.3 Thou/mm3 (0.0-0.5); Eosinophils % (Auto) 4 % (0-10); Hematocrit 31.7 % (36.0-46.0); Hemoglobin 10.0 g/dL (12.0-16.0); Immature Granulocytes Auto 0.02 Thou/mm3 (0.00-0.00); Lymphocytes # (Auto) 1.4 Thou/mm3 (1.0-4.8); Lymphocytes % (Auto) 20 % (10-50); Mean Corpuscular HGB Conc 31.5 g/dl (31.0-37.0); Mean Corpuscular Hemoglobin 25.4 pg (25.0-35.0); Mean Corpuscular Volume 81 fL (80-100); Monocytes # (Auto) 0.5 Thou/mm3 (0.0-0.8); Monocytes % (Auto) 7 % (0-12); Neutrophils # (Auto) 4.7 Thou/mm3 (1.8-7.7); Neutrophils % (Auto) 66 % (37-80); Nucleated Red Blood Cell # 0.00 Thou/mm3 (0.00-0.00); Nucleated Red Blood Cell % 0 /100 WBC (0); Platelet Count 265 Thou/mm3 (140-440); RDW Standard Deviation 57.8 fL (36.4-46.3); Red Blood Count 3.94 Miln/mm3 (4.00-5.20); White Blood Count 7.0 Thou/mm3 (3.6-11.0)
[2025-02-09 06:31] LABS: Alanine Aminotransferase 11 U/L (10-49); Albumin, Serum 3.7 gm/dL (3.4-4.8); Albumin/Globulin Ratio 1.3 (1.2-2.2); Alkaline Phosphatase 212 U/L (46-116); Anion Gap 10 (7-16); Aspartate Amino Transferase 25 U/L (0-34); BUN/Creatinine Ratio 21 Ratio (12-20); Bilirubin,Total 0.5 mg/dL (0.3-1.2); Blood Urea Nitrogen 17 mg/dL (9-23); Calcium 9.2 mg/dL (8.3-10.6); Calcium (Corrected) 9.4 mg/dL (8.5-10.1); Carbon Dioxide 27.4 mMol/L (20.0-31.0); Chloride 105 mMol/L (98-107); Creatinine (Component) 0.8 mg/dL (0.6-1.3); Estimated Creatinine Clearance 72.2 mL/min (>60); Globulin 2.9 gm/dL (2.3-3.5); Glucose 134 mg/dL (74-106); Magnesium 1.8 mg/dL (1.6-2.6); Osmolality,Calculated 286 (275-295); Phosphorous 3.1 mg/dL (2.4-5.1); Potassium 4.4 mMol/L (3.4-5.1); Sodium 142 mMol/L (136-145); Total Protein 6.6 gm/dL (5.7-8.2); eGFR > 60 See Note
--- NOTE | 2025-02-09 08:48 | PC.SS ---
Addendum entered by Marizol Adan 02/09/25 14:43: Auth# [id number]. Provided to SNF. SS spoke to Samantha with marketing at [facility]. Patient will be picked up here at 3:30pm via [employer] van to [place]. Patient does not have coverage and needs to be at facility before 5. Upated nursing, patient and family. Orders and d/c summary sent through [employer]. Packet arranged. Addendum entered by Marizol Adan 02/09/25 11:39: SS spoke to insurance co. and they state due to the fact that patient is contact guard assist rather than mod assist that they may not agree to SNF. Possible peer to peer. This is in physician review now. Addendum entered by Marizol Adan 02/09/25 10:33: SS faxed updated PT notes to [employer]. Pending response for auth. Patient ready for d/c. Original Note: /jFollow up note: SS spoke to insurance co. and they need an updated within 48 hours of discharge. Our last note was on 02/05/25. SS updated PT who will work with patient this morning. If patient is at same level they will approve today and we can discharge.
[2025-02-09] MEDS: HEPARIN SOD INJ 5000 UNIT/ML VIAL SC (09:05)
[2025-02-09] MEDS: SPIRONOLACTONE 25 MG TABLET PO (09:06)
[2025-02-09] MEDS: LIOTHYRONINE SOD 5 mCg TABLET 10 MCG PO (09:06)
[2025-02-09] MEDS: MULTIVITAMINS TABLET 1 TAB PO (09:06)
[2025-02-09] MEDS: ASCORBIC ACID 250 MG TABLET PO (09:07)
[2025-02-09] MEDS: FOLIC ACID 1 MG TABLET PO (09:08)
[2025-02-09] MEDS: ESCITALOPRAM OXALATE 10 MG TABLET 20 MG PO (09:08)
[2025-02-09] MEDS: LIDOCAINE 5% 1 PATCH TOP (09:08)
[2025-02-09] MEDS: THIAMINE 100 MG TABLET PO (09:08)
[2025-02-09] MEDS: POLYETHYLENE GLYCOL 17 GM PACKET PO (09:08)
[2025-02-09] MEDS: cefTRIAXone/D5w 2gm 2 GM/50 ML BAG IV (09:09)
[2025-02-09] MEDS: INSULIN LISPRO (AdmeLOG) 1 UNIT/0.01 ML UNIT SC (11:38)
--- NOTE | 2025-02-09 13:17 | ESDS_ITS ---
Planned Discharge Date 02/09/25 DS: Providers Provider Date of admission: 01/21/25 11:03 Primary care physician: Hima Musa MD Admitting Provider: Brandon Sawyer MD Attending Provider on Admission: Salvador Sim MD Consults: 01/20/25 17:49 Consult to Gastroenterology Routine Comment: Consulting Provider: Mark Nagy 01/22/25 09:03 Referral Physical Therapy Routine Comment: Physician Instructions: 01/24/25 11:40 Consult to Neurology / Tele-Neurology Routine Comment: Recurrent episode of AMS, shakes, r/o seizure Consulting Provider: Hemal Fall 01/24/25 12:40 Consult to Cardiology Routine Comment: Cirrhosis, hypotension Consulting Provider: Erin Tomas 01/24/25 16:24 Consult to Nephrology Routine Comment: Consulting Provider: Ayanna Mckeon 01/26/25 10:09 Consult to General Surgery Routine Comment: concern for sbo Consulting Provider: Jasmin Bradley 01/27/25 14:25 Referral - Receiving Manager Routine Service Needed for Transfer: HEPATOLOGY Addl Comments:: Decompensated liver cirrhosis with worsening hepatic encephaloopathy despite aggressive management. 01/27/25 15:48 Referral Registered Dietitian Routine Comment: Trickle feeds thru [facility] 01/27/25 16:41 Referral Wound Care Routine Comment: 01/28/25 13:19 Referral Physical Therapy Routine Comment: Please re-eval Physician Instructions: Instructions: PT had significant decline since last eval Attending Provider on DC: Medhat Jackman MD Discharging Provider: Medhat Jackman MD DS: Diagnosis Problem List Completed Was Problem List Reviewed/Reconciled?: Yes Hospital Course Hospital Course Hospital course: This is a pleasant 64 year-old female with PMHx of alcoholic liver cirrhosis, COPD on home O2, hypothyroidism, asthma, HTN, T2DM admitted for decompensated liver cirrhosis with hepatic encephalopathy and significant ascites requiring paracentesis. Hospital course was complicated by persistent hepatic encephalopathy difficulty eliminating bowel, poor tolerance to LACTULOSE, and episode of SBO requiring GASTROGRAFIN study. However, hepatic encephalopathy gradually improved with regular bowel movements, and will continue on rifaximin prophylaxis. She was treated for an SBP with some ANTIBIOTICS, and will continue on outpatient oral ANTIBIOTICS. She has poor tolerance to IV diuresis despite daily ALBUMIN infusions and MIDODRINE, resulting in DONNA and short episode of lactic acidosis which has resolved. As such, she will be discharged with minimal diuresis with the addition of CARVEDILOL which she is currently tolerating. Recommended close follow-up with PCP to adjust diuresis as needed. Additionally, she was on several ANXIOLYTIC medications which likely inappropria te for her condition, and concerning for polypharmacy, resulting in worsening mentation. Some of these medications were discontinued with the help of neurology on board, other medications were changed as listed below. With history of hypothyroidism, on LEVOTHYROXINE and liothyronine 20 mg daily which is a very high dose. Her thyroid function did show low L3. We resumed LEVOTHYROXINE and liothyronine at half the dose as listed below. We recommended close follow-up with endocrinology for management of thyroid medications. Discharge Instructions: * Follow-up with PCP within 1-2 weeks of discharge. You may see one of the residents at the [facility] at the address below. Please call the provided phone number to make an appointment. * Things to discuss with your PCP include: liver transplant, possible need for recurrent parenthesis, management of DIURETICS for cirrhosis, ANTIBIOTICS and maintaining regular bowel movements to preventing recurrent hepatic encephalopathy, pain control, and sleep medication, hepatitis A and hepatitis B vaccine, and thyroid medications. [facility] [address], [place] [address] * Follow-up with neurology, Dr. Hoyos, within 1-2 weeks of discharge. * Please make a week log of daily blood pressure and heart rate and bring to your PCP on your next visit. * Return to Emergency Room if symptoms persist, worsen, or new symptoms develop. Medications Instructions: STOP taking the following medications: * OZEMPIC injections which can increase the risk of constipation. * LUBIPROSTONE 24 mg. * LYRICA 150 mg twice daily. * CLONIDINE twice daily. * IBUPROFEN 600 mg daily (this medication can cause stomach irritation and increases the risk of GI bleed if taking excessively). * PRIMIDONE 250 mg daily. * QVAR 40 mcg aerosol inhaler (we replace this medication with TRELEGY inhaler as above). * STIOLTO RESPIMAT aerosol inhaler (we replace this medication with TRELEGY inhaler as above). * TRAMADOL 50 mg twice daily. * SPIRONOLACTONE 50 mg twice daily (DOSE CHANGED). CONTINUE taking the following NEW medications: * CIPROFLOXACIN twice daily for 5 more days * DOCUSATE 100 mg daily and MIRALAX 17 g daily, you may add LACTULOSE 15 mg up to 4 times daily to maintain an average of 4 bowel movements daily to prevent recurrent hepatic encephalopathy. * RIFAXIMIN 550 mg twice daily. * LASIX/FUROSEMIDE 20 mg daily. * SPIRONOLACTONE 25 mg daily. * CARVEDILOL 3.125 mg twice daily. * MIDODRINE 5 mg 3 times daily. * TRELEGY inhaler once daily for shortness of breath. * ALBUTEROL rescue inhaler as needed for shortness of breath, up to twice daily. * LIDOCAINE patches, applied once daily as needed for back pain. * LIOTHYRONINE 10 mg daily (DOSE CHANGED). * SIMETHICONE 80 mg 4 times daily as needed for abdominal distention. * THIAMINE 100 mg daily. * GABAPENTIN 200 mg two times daily for pain. * NORCO 5 every 6 hours for severe pain. CONTINUE taking the following HOME medications: * LEVOTHYROXINE 112 mcg daily. * AMBIEN 5 mg once at night as needed for insomnia. * LEXAPRO 20 mg daily. * JARDIANCE 10 mg daily. * METOCLOPRAMIDE 10 mg 3 times daily as needed for nausea or constipation. * OMEPRAZOLE 20 mg daily. Admission Diagnosis Acute hepatic encephalopathy (resolved) Acute decompensated alcoholic liver cirrhosis Intractable ascites (improving) Advanced portal hypertension (stable) Esophageal varices (stable) Subacute bacterial peritonitis (resolved) Possible polypharmacy Hx anxiety Hypothyroidism Microcytic anemia (stable) Grade 1 esophageal varices Mild thrombocytopenia (resolved) HTN Asymptomatic sinus bradycardia COPD, asthma Chronic respiratory failure, on home 2 L O2 T2DM Acute kidney injury -resolved Prerenal 2/2 to hypotention Electrolyte abnormalities Chronic back pain SBO (resolved) Constipation (resolved) Abdominal distention?slowly improving Case was discussed with attending physician. Keith Daly DO PGY II This document was transcribed using voice recognition technology. Minor inaccuracies may be present. Time Spent with Patient Time attestation: Total time spent providing and/or coordinating discharge services: Time spent: Greater than 30 minutes Exam Vital Signs Temp Pulse Resp BP Pulse Ox O2 Del Method O2 Flow Rate 97.8 F 81 18 109/63 95 Room Air 1 02/09/25 11:58 02/09/25 11:58 02/09/25 11:58 02/09/25 11:58 02/09/25 11:58 02/09/25 11:58 02/07/25 11:53 Narrative Exam GENERAL Normal appearing adult female, NAD. HEENT NCAT. GEOVANNI. Oral mucosa is moist. Patent Nares NECK Supple, nontender, no JVD. CHEST RRR, no m/g/r, bilateral inspiratory crackles,no work of breathing, sy mmetrical expansion. ABDOMEN Soft, minimal abdominal distention and tenderness. No guarding/rebound tenderness/masses. Bowel sounds presents EXTREMITIES No edema/cyanosis. SKIN Warm and dry, no jaundice/rashes. Slightly pale. NEUROMUSCULAR Asterixis bilaterally of upper extremities. Moves all 4 extremities slowly, with full ROM. No focal neurologic deficits. PSYCHIATRY Normal mood and affect, cooperative, no hallucinations Discharge Plan Plan Patient Disposition: Xfer Skilled Nsg Fac (SNF) Patient condition on transfer: Stable Care Plan Goals: Instructions: * Follow-up with PCP within 1-2 weeks of discharge. You may see one of the residents at the [facility] at the address below. Please call the provided phone number to make an appointment. * Things to discuss with your PCP include: liver transplant, possible need for recurrent parenthesis, management of DIURETICS for cirrhosis, ANTIBIOTICS and maintaining regular bowel movements to preventing recurrent hepatic encephalopathy, pain control, and sleep medication, hepatitis A and hepatitis B vaccine, and thyroid medications. [facility] [address], [place] [address] [email or web address] * Follow-up with neurology, Dr. Hoyos, within 1-2 weeks of discharge. * Please make a week log of daily blood pressure and heart rate and bring to your PCP on your next visit. * Return to Emergency Room if symptoms persist, worsen, or new symptoms develop. Medications Instructions: STOP taking the following medications: * OZEMPIC injections which can increase the risk of constipation. * LYRICA 150 mg twice daily. * CLONIDINE twice daily. * IBUPROFEN 600 mg daily (this medication can cause stomach irritation and increases the risk of GI bleed if taking excessively). * PRIMIDONE 250 mg daily. * QVAR 40 mcg aerosol inhaler (we replace this medication with TRELEGY inhaler as above). * STIOLTO RESPIMAT aerosol inhaler (we replace this medication with TRELEGY inhaler as above). * TRAMADOL 50 mg twice daily. * SPIRONOLACTONE 50 mg twice daily (DOSE CHANGED). * LUBIPROSTONE 24 mg eye drops. CONTINUE taking the following NEW medications: * CIPROFLOXACIN twice daily for 5 more days * DOCUSATE 100 mg daily and MIRALAX 17 g daily, you may add LACTULOSE 15 mg up to 4 times daily to maintain an average of 4 bowel movements daily to prevent recurrent hepatic encephalopathy. * RIFAXIMIN 550 mg twice daily. * LASIX/FUROSEMIDE 20 mg daily. * SPIRONOLACTONE 25 mg daily. * CARVEDILOL 3.125 mg twice daily. * MIDODRINE 5 mg 3 times daily. * TRELEGY inhaler once daily for shortness of breath. * ALBUTEROL rescue inhaler as needed for shortness of breath, up to twice daily. * LIDOCAINE patches, applied once daily as needed for back pain. * LIOTHYRONINE 10 mg daily (DOSE CHANGED). * SIMETHICONE 80 mg 4 times daily as needed for abdominal distention. * THIAMINE 100 mg daily. * GABAPENTIN 200 mg two times daily for pain. * NORCO 5 every 6 hours for severe pain. CONTINUE taking the following HOME medications: * LEVOTHYROXINE 112 mcg daily. * AMBIEN 5 mg once at night as needed for insomnia. * LEXAPRO 20 mg daily. * JARDIANCE 10 mg daily. * METOCLOPRAMIDE 10 mg 3 times daily as needed for nausea or constipation. * OMEPRAZOLE 20 mg daily. * LANTOPROST eye drop once at night. Prescriptions/Referrals Prescriptions/Med Rec: [place] Ellipta 100-62.5-25 mcg blister with device 1 inh inhalation QDAY Qty: 60 0RF furosemide [Lasix] 20 mg tablet 20 mg PO QDAY 30 Days Qty: 30 0RF Rx Instructions: Take one tablet by mouth every day lidocaine 5 % Adhesive Patch,Medicated 1 patch top DAILY Qty: 60 0RF docusate sodium 100 mg Capsule 200 mg PO QDAY Qty: 30 0RF Xifaxan 550 mg Tablet 550 mg PO BID Qty: 60 0RF spironolactone 25 mg Tablet 25 mg PO QDAY Qty: 30 0RF simethicone 80 mg Tablet,Chewable 80 mg PO QID PRN (Reason: Abdominal Distention) Qty: 120 0RF midodrine 5 mg Tablet 5 mg PO TID Qty: 90 0RF melatonin 3 mg Tablet 6 mg PO HS Qty: 60 0RF liothyronine 5 mcg Tablet 10 mcg PO QDAY Qty: 30 0RF polyethylene glycol 3350 [Miralax] 17 gram/dose powder 4 g PO QDAY Qty: 850 3RF ciprofloxacin HCl 500 mg tablet 500 mg PO BID 4 Days Qty: 8 0RF carvedilol 3.125 mg Tablet 3.125 mg PO BIDWM Qty: 60 0RF albuterol sulfate 90 mcg/actuation HFA aerosol inhaler 1 inh inhalation BID Qty: 6.7 0RF lidocaine 5 % adhesive patch,medicated 1 patch topical QDAY Qty: 30 0RF Rx Instructions: leave on most painful area for up to 12 hrs zolpidem 5 mg Tablet 5 mg PO HS PRN (Reason: Insomnia) Qty: 30 0RF thiamine mononitrate (vit B1) 100 mg Tablet 100 mg PO QDAY Qty: 30 0RF hydrocodone-acetaminophen 5-325 mg tablet 1 tab PO Q6H MDD 4 tablets in one day PRN (Reason: breakthrough pain or pain 7-10 ) 3 Days Qty: 12 0RF Rx Instructions: Take one tablet by mouth up to four times a day as needed for pain gabapentin 100 mg capsule 200 mg PO BID 30 Days Qty: 120 0RF Rx Instructions: Take two capsules by mouth twice a day latanoprost 0.005 % drops 1 drp ophthalmic (eye) QPM Qty: 7.5 0RF Continued escitalopram oxalate [Lexapro] 20 mg tablet 20 mg PO QDAY levothyroxine 112 mcg Capsule 112 mcg PO QDAY metoclopramide HCl 10 mg Tablet 1 mg PO TID Jardiance 10 mg Tablet 1 mg PO DAILY omeprazole 20 mg capsule,delayed release(DR/EC) 20 mg PO BID insulin lispro 100 unit/mL insulin pen 1 sliding scale dose SUBCUT PRN Patient Comments: INJECT UNITS SUBCUTANEOUSLY PER sliding scale WITH meals FOR DIABETES (blood sugar 150-200=5 UNITS, 201-250= 10u,251-300= 15 u,>300=20 Discontinued pregabalin [Lyrica] 150 MG capsule 150 mg PO BID Qty: 0 latanoprost 0.005 % Drops 1 drp OPHTHALMIC (EYE) QPM Rx Instructions: each eye tramadol 50 mg Tablet 50 mg PO BID primidone 250 mg Tablet 250 mg PO QDAY Rx Instructions: takes 1/2 tab at bedtime albuterol sulfate [Ventolin HFA] 90 mcg/actuation Hfa Aerosol Inhaler 2 puff INHALATION Q4H PRN (Reason: Shortness Of Breath) clonidine HCl 0.1 mg tablet 1 tab PO BID Patient Comments: TAKE ONE TABLET BY MOUTH TWICE DAILY IF BLOOD PRESSURE IS 150/80 metoprolol succinate 50 mg tablet extended release 24 hr 1.5 tab PO QDAY Patient Comments: TAKE 1 AND 1/2 TABLETS BY MOUTH EVERY DAY WITH FOOD metformin 1,000 mg tablet 1,000 mg PO BID liothyronine 5 mcg Tablet 20 mcg PO QDAY zolpidem 5 mg Tablet 5 mg PO QHSPRN primidone 50 mg Tablet 1 mg PO DAILY fluticasone propionate 110 mcg/actuation Hfa Aerosol Inhaler 1 inh INHALATION BID Stiolto Respimat 2.5-2.5 mcg/actuation Mist 2 puff INHALATION DAILY Ozempic 1 mg/dose (4 mg/3 mL) Pen Injector 1 mg subcut QWEEK Rx Instructions: 1 mg subcutaneously ibuprofen 600 mg tablet 600 mg PO Q6H PRN (Reason: pain) Qty: 60 0RF spironolactone 50 mg tablet 50 mg PO BID Patient Comments: TAKE ONE TABLET BY MOUTH EVERY MORNING lubiprostone 24 mcg capsule 24 mcg PO PRN PRN (Reason: constipation) Patient Comments: TAKE ONE CAPSULE BY MOUTH TWICE DAILY FOR CONSTIPATION Qvar RediHaler 40 mcg/actuation HFA aerosol breath activated 2 inh INHALATION BID aspirin 81 mg capsule 81 mg PO QDAY Referrals: Hima Musa([facility])MD [Primary Care Provider] - Patient/Caregiver Discharge Instructions Other Discharge Activity Instructions:: WOUND CARE- Sheering vs medical adhesive removal trauma over gluteal cleft: cleanse with wound cleanser, pat dry, apply Ronny/ calcium alginate to wound bed. Skin prep to wound edges and cover with allyven dressing daily and PRN for falling off. Education Materials: Bleeding Gastrointestinal, Paracentesis Dc Print Language: German Stand Alone Forms: Brii Award Info., Patient Portal Info Letter Discharge Order Discharge Orders: Discharge (Routine); Ordered 02/09/25 Ordered By: Keith Daly Quality Discharge Quality Measures VTE prophylaxis Attestestation MD Attestation I discussed with and supervised the resident physician who took care of this patient. I agree with the assessment and discharge plan as above. Follow-up with primary care provider as scheduled. Return to the emergency room for recurrent symptoms
[2025-02-09] MEDS: ACETAMINOPHEN 325 MG TABLET PO (15:46)
== END 2025-02-09 16:05 | disposition skilled nursing facility (03) | DRG 432 ==
LOC: SERX 15:31 → SERHOLD 18:31 → S3SX 01-21 05:30 → S2NX 01-24 14:56
PROVIDERS: Internal Medicine; Nurse Practitioner Family; Specialist; Admitting Provider Student in an Organized Health Care Education/Training Program; Emergency Provider Emergency Medicine; PCP Family Medicine; Visit Provider Student in an Organized Health Care Education/Training Program
PROC: (CPT 43239; principal; 2025-01-21 20:00)
DX: K70.31 Alcoholic cirrhosis of liver with ascites (principal); G92.8 Other toxic encephalopathy; K29.71 Gastritis, unspecified, with bleeding; N17.0 Acute kidney failure with tubular necrosis; K76.7 Hepatorenal syndrome; K65.8 Other peritonitis; J96.10 Chronic respiratory failure, unspecified whether with hypoxia or hypercapnia; K76.6 Portal hypertension; E87.20 Acidosis, unspecified; I85.10 Secondary esophageal varices without bleeding; K55.9 Vascular disorder of intestine, unspecified; K56.7 Ileus, unspecified; J96.11 Chronic respiratory failure with hypoxia; I10 Essential (primary) hypertension; E11.9 Type 2 diabetes mellitus without complications; J44.9 Chronic obstructive pulmonary disease, unspecified; E03.9 Hypothyroidism, unspecified; F17.210 Nicotine dependence, cigarettes, uncomplicated; F41.9 Anxiety disorder, unspecified; D69.6 Thrombocytopenia, unspecified; E78.5 Hyperlipidemia, unspecified; G89.29 Other chronic pain; E83.39 Other disorders of phosphorus metabolism; E87.5 Hyperkalemia; D50.9 Iron deficiency anemia, unspecified; R00.1 Bradycardia, unspecified; Z99.81 Dependence on supplemental oxygen; K70.40 Alcoholic hepatic failure without coma; K72.10 Chronic hepatic failure without coma; K64.9 Unspecified hemorrhoids; K76.82 Hepatic encephalopathy; R56.9 Unspecified convulsions; G25.3 Myoclonus; I70.0 Atherosclerosis of aorta; K56.41 Fecal impaction; K82.8 Other specified diseases of gallbladder; K31.89 Other diseases of stomach and duodenum; J44.89 Other specified chronic obstructive pulmonary disease; Z79.890 Hormone replacement therapy; Z79.4 Long term (current) use of insulin; Z79.82 Long term (current) use of aspirin; Z79.84 Long term (current) use of oral hypoglycemic drugs; Z79.85 Long-term (current) use of injectable non-insulin antidiabetic drugs; Z79.899 Other long term (current) drug therapy; Z86.0100 Personal history of colon polyps, unspecified
CPT/HCPCS: 36415; 70450; 71045; 74018; 74176; 74250; 76705; 76770; 80053; 80069; 80074; 81001; 81025; 82042; 82140; 82150; 82306; 82570; 82607; 82652; 82746; 82803; 82945; 83540; 83550; 83605; 83615; 83690; 83735; 83880; 84100; 84157; 84300; 84436; 84439; 84443; 84480; 84481; 84484; 84540; 85025; 85046; 85379; 85610; 85730; 86331; 86635; 86850; 86900; 86901; 87040; 87070; 87075; 87205; 89051; 92526; 92610; 93005; 93306; 94640; 94664; 95816; 96365; 96375; 97162; A9270; C1729; G0378; J0456; J0696; J1171; J1200; J1644; J1815; J1938; J2250; J2270; J2405; J2470; J2543; J3010; J3475; J3490; J7030; J7050; J7120; J7999; P9045; P9047; Q0167; Q9963

== ENCOUNTER → 2025-01-20 | Outpatient (CLI) | payer MEDICARE, SELFPAY ==
--- NOTE | 2025-01-20 11:30 | XR_ITS ---
Examination: Abdomen sonogram, Limited Date and time of exam: January 20, 2025 1131 hours INDICATIONS: Abdominal distention and pain beginning 2 weeks ago, diagnosis cirrhosis, distended gallbladder on CT abdomen study November 01, 2024 Technique: Real-time haskins scale transabdominal sonographic images of the upper abdomen obtained. Findings: Distended gallbladder Gallbladder wall 0.4 cm but the patient has moderateascites Common bile duct 0.4 cm no stones Pancreas obscured by bowel gas Hepatomegaly 20 cm irregular contour fatty infiltration Normal hepatopedal portal venous flow Patent IVC IMPRESSION: Distended gallbladder Negative for cholelithiasis The gallbladder wall measures 0.37 cm but the patient has ascites
== END | disposition home or self-care (01) ==
LOC: CDIM 11:25
PROVIDERS: PCP Nurse Practitioner; Referring Provider Nurse Practitioner; Visit Provider Nurse Practitioner
DX: K82.8 Other specified diseases of gallbladder (principal); R18.8 Other ascites
CPT/HCPCS: 76705